=== PATIENT | female | born 1995 | race Caucasian/White ===

== ENCOUNTER 2021-06-30 11:29 | Outpatient (CLI) | payer BC, SELFPAY ==
[2021-06-30 11:51] LABS: Absolute Lymphocyte Count 1.37 X10^3/uL (0.83-4.51); Absolute Neutrophil Count 5.9 X10^3/uL (2.0-7.7); Basophil# 0.03 X10^3/uL; Basophil% 0.4 % (0-1); Eosinophil# 0.04 X10^3/uL; Eosinophils% 0.5 % (0-5); Hemoglobin 12.8 g/dL (12.0-15.0); Lymphocyte # 1.37 X10^3/ul (0.83-4.51); Lymphocyte % 17.2 % (19-41); Mean Corp Hgb Conc 33.7 g/dL (32-36); Mean Corpuscular Hgb 30.1 pg (27.0-32.0); Mean Corpuscular Volume 89.4 fL (81-99); Mean Platelet Vol. 9.8 fl (6.2-12.0); Monocyte# 0.57 X10^3/uL; Monocyte% 7.2 % (0-10); NRBC Flagged by Analyzer 0 % (0-5); Neutrophil # 5.91 X10^3/uL (2.7-7.7); Neutrophil % 74.2 % (47-70); Platelet Count 194 K/mm3 (150-450); RBC Distribution Width CV 12.8 % (11.6-14.6); RBC Distribution Width SD 42.3 fl (35.1-43.9); Red Blood Count 4.25 M/mm3 (4.2-5.4)
[2021-06-30 13:17] LABS: HIV - WCH Non-Reactive (Nonreactive); Hepatitis B Surface Antigen Non-Reactive (Nonreactive); Hepatitis C Antibody Non-Reactive (Nonreactive); Rubella IgG Reactive (Nonreactive); Syphilis Antibodies Non-reactive
[2021-06-30 14:31] LABS: Amphetamine Urine VISTA NEGATIVE (<1000 ng/mL); Barbiturate Urine VISTA NEGATIVE (< 200 ng/mL); Benzodiazepine Urine VISTA NEGATIVE (< 200 ng/mL); Cocaine Urine VISTA NEGATIVE (< 300 ng/mL); Ecstacy Urine VISTA NEGATIVE (< 500 ng/mL); Methadone Urine VISTA NEGATIVE (< 300 ng/mL); PCP Urine VISTA NEGATIVE (< 25 ng/mL); THC Urine VISTA NEGATIVE (< 50 ng/mL); Vista UDS pH Range 5
[2021-07-04 04:07] LABS: Chlamydia By Nucleic Acid AMP Negative (Negative)
[2021-07-04 11:24] LABS: Gonococcus By Nucleic Acid AMP Negative (Negative)
== END 2021-06-30 23:59 | disposition short-term general hospital (02) ==
PROVIDERS: PCP Nurse Practitioner; Referring Provider Obstetrics & Gynecology; Visit Provider Obstetrics & Gynecology
DX: Z34.90 Encounter for supervision of normal pregnancy, unspecified, unspecified trimester (principal)
CPT/HCPCS: 36415; 80307; 85025; 86703; 86762; 86780; 86803; 86850; 86900; 86901; 87086; 87340; 87491; 87591

== ENCOUNTER → 2021-10-26 | Outpatient (CLI) | payer BC, SELFPAY ==
[2021-10-26 08:15] LABS: Absolute Lymphocyte Count 1.42 X10^3/uL (0.83-4.51); Basophil# 0.05 X10^3/uL; Basophil% 0.7 % (0-1); Eosinophil# 0.14 X10^3/uL; Eosinophils% 1.9 % (0-5); Hemoglobin 11.4 g/dL (12.0-15.0); Lymphocyte # 1.42 X10^3/ul (0.83-4.51); Lymphocyte % 18.8 % (19-41); Mean Corp Hgb Conc 32.6 g/dL (32-36); Mean Corpuscular Hgb 30.6 pg (27.0-32.0); Mean Corpuscular Volume 93.8 fL (81-99); Mean Platelet Vol. 9.5 fl (6.2-12.0); Monocyte# 0.62 X10^3/uL; Monocyte% 8.2 % (0-10); NRBC Flagged by Analyzer 0 % (0-5); Neutrophil # 5.04 X10^3/uL (2.7-7.7); Neutrophil % 66.6 % (47-70); Platelet Count 211 K/mm3 (150-450); RBC Distribution Width CV 12.7 % (11.6-14.6); Red Blood Count 3.73 M/mm3 (4.2-5.4); White Blood Count 7.6 K/mm3 (4.4-11.0)
[2021-10-26 08:52] LABS: Glucose Challenge Gest 1H 50g 96 mg/dL (70-140)
== END | disposition home or self-care (01) ==
LOC: PAVLAB 07:53
PROVIDERS: PCP Nurse Practitioner; Referring Provider Obstetrics & Gynecology; Visit Provider Obstetrics & Gynecology
DX: Z34.90 Encounter for supervision of normal pregnancy, unspecified, unspecified trimester (principal)
CPT/HCPCS: 36415; 82950; 85025

== ENCOUNTER 2021-12-14 10:57 | Emergency (ER) | payer BC, SELFPAY ==
[2021-12-14 10:57] VITALS: BP 138/85; PULSE 111; RESP 16; TEMP 36.6; O2SAT 99; BMI 29.5
--- NOTE | 2021-12-14 11:01 | NURSING ---
NO OLD EKGS
--- NOTE | 2021-12-14 11:14 | EDS_ITS ---
HPI History of Present Illness Chief Complaint: Palpitations Narrative Narrative: Patient presents with palpitations, she tells me that her apple watch read up to 160 bpm and she was feeling lightheaded at the time. She has a history of this during her , she is in her third trimester, she had decreased all caffeine and was okay for a few weeks and then today her tachycardia returned. Other than her lightheadedness when her heart rate was really high she had no chest pain no pleuritic component she had no back pain or tearing sensation she has no lower extremity edema or calf pain. She has no history of DVT or PE. She has no shortness of breath. She has no abdominal pain. No history of thyroid issues, and otherwise she has no other symptoms. [facility] Medical History COVID-19 vaccine series completed Home Medications multivitamin no.47-iron fum 27 mg-folate no.1 1 mg-dha 300 mg capsule (PNV-DHA) cap PO 06/14/21 [History Last Taken Unknown] metoprolol tartrate 25 mg tablet 25 mg PO BID #30 tabs 12/14/21 [Rx Last Taken Unknown] Allergy/AdvReac Type Severity Reaction Status Date / Time Penicillins Allergy Intermediate Hives Verified 12/14/21 10:59 Family History Mother Hypertension Grandmother Breast cancer Grandmother Hypertension Surgical History H/O wisdom tooth extraction Social History household members: spouse housing: house 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al status: employed 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 Some lightheadedness Eyes: No visual changes ENT: No upper airway congestion, normal voice Neck: No neck pain Cardiovascular: No chest pain. Palpitations as in HPI Respiratory: No shortness of breath or cough Gastrointestinal: No abdominal pain, nausea vomiting or diarrhea. She has movement Genitourinary: No dysuria Musculoskeletal: Denies myalgias no difficulty with ambulation Skin: No rash Neurological: No memory loss, confusion or any focal weakness Psych: No recent behavioral changes Hematologic: No easy bleeding or easy bruising EXAM Physical Exam Narrative Exam Narrative: Physical exam General: Well nourished, Well developed, No Acute Distress Head: Normocephalic, Atraumatic Eyes: Conjunctiva not pale ENT: Moist mucous membranes Neck: Supple, Nontender, No lymphadenopathy Cardiovascular: Regular tachycardia. No obvious murmurs. Respiratory: No distress, CTA bilaterally Abdomen: Gravid past the umbilicus, nontender. Back: Nontender, Normal Inspection. Negative for: CVA tenderness Extremities: Nontender, No edema, no calf tenderness Skin: Normal color, No rash Neurological: Alert, Normal Strength, Normal Sensation Psychological: Normal affect Const Vital Signs: 12/14/21 10:57 12/14/21 11:16 Temperature 97.8 F Temperature Source Temporal Pulse Rate 111 H Respiratory Rate 16 Respiratory Effort Normal Non-Labored Respiratory Pattern Normal Blood Pressure 138/85 H Blood Pressure Mean 102 Pulse Ox 99 Oxygen Delivery Method Room Air MDM MDM MDM Narrative Medical decision making narrative: Patient has an unremarkable ED work-up she appears well, she was given a small amount of metoprolol orally and her heart rate now is in the ED she is asymptomatic. I talked to WARNING ANALYST, Dr. Palomo Sloan as well as Dr. Castillo. I will place the patient on a Holter monitor for home and a small amount of beta- blockade for home. If any changes she is to return. At this time she does not have any signs or symptoms of a pulmonary embolism she has no chest pain shortness of breath no leg pain calf pain or any other symptoms. I warned her if she gets any of these she is to return. 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 Lab Data Labs: Laboratory Results - last 24 hr 12/14/21 12/14/21 12/14/21 11:25 11:25 11:40 WBC 9.2 RBC 3.70 L Hgb 10.5 L Hct 32.3 L MCV 87.3 MCH 28.4 MCHC 32.5 RDW Std Deviation 41.1 RDW Coeff of Jovon 13.1 Plt Count 189 MPV 10.2 Immature Gran % (Auto) 2.100 H Neut % (Auto) 75.7 H Lymph % (Auto) 15.3 L [place] % (Auto) 6.1 Eos % (Auto) 0.5 Baso % (Auto) 0.3 Absolute Neuts (auto) 7.0 Absolute Lymphs (auto) 1.41 Nucleated RBC % 0 Sodium 138 Potassium 3.7 Chloride 108 H Carbon Dioxide 24.0 Anion Gap 6 BUN 9 Creatinine 0.63 Estim Creat Clear Calc 116.85 Est GFR (MDRD) Af Amer 146 Est GFR (MDRD) Non-Af 121 BUN/Creatinine Ratio 14.2 Glucose 81 Calcium 9.0 Total Bilirubin 0.20 AST 29 ALT 38 Alkaline Phosphatase 69 Total Protein 6.9 Albumin 2.9 L Globulin 4.0 Albumin/Globulin Ratio 0.7 L TSH 2.74 Urine Color Yellow Urine Clarity Clear Urine pH 6.5 Ur Specific [place] 1.010 Urine Protein Negative Urine Glucose (UA) Normal Urine Ketones 50 H Urine Occult Blood Negative Urine Nitrite Negative Urine Bilirubin Negative Urine Urobilinogen Normal Ur Leukocyte Esterase Negative Urine RBC 0 SEEN Urine WBC 0 SEEN Ur Squamous Epith Cells 0 SEEN Urine Bacteria 0 SEEN Urine Mucus 0 SEEN Discharge Plan Triage Chief Complaint: Palpitations ED Provider: Kristopher Lopez Dx/Rx/DC Orders Clinical Impression: , Tachycardia Instructions: Understanding Tachycardia Prescriptions: New metoprolol tartrate 25 mg tablet 25 mg PO BID Qty: 30 0RF No Action PNV-DHA 27 mg iron-1 mg -300 mg capsule PO Primary Care Provider: Sowmya Baldwin NP Referrals: Kristopher Castillo MD [STAFF PHYSICIAN] - 3-5 Days Dorothy Lee MD [STAFF PHYSICIAN] - 3-5 Days Sowmya Baldwin NP, SPOTTER-C [Primary Care Provider] - Disposition Disposition: Home, Self Care
[2021-12-14 11:37] LABS: Absolute Lymphocyte Count 1.41 X10^3/uL (0.83-4.51); Basophil# 0.03 X10^3/uL; Basophil% 0.3 % (0-1); Eosinophil# 0.05 X10^3/uL; Eosinophils% 0.5 % (0-5); Hematocrit 32.3 % (37-47); Hemoglobin 10.5 g/dL (12.0-15.0); Lymphocyte # 1.41 X10^3/ul (0.83-4.51); Lymphocyte % 15.3 % (19-41); Mean Corp Hgb Conc 32.5 g/dL (32-36); Mean Corpuscular Hgb 28.4 pg (27.0-32.0); Mean Corpuscular Volume 87.3 fL (81-99); Mean Platelet Vol. 10.2 fl (6.2-12.0); Monocyte# 0.56 X10^3/uL; Monocyte% 6.1 % (0-10); NRBC Flagged by Analyzer 0 % (0-5); Neutrophil # 6.99 X10^3/uL (2.7-7.7); Neutrophil % 75.7 % (47-70); Platelet Count 189 K/mm3 (150-450); RBC Distribution Width CV 13.1 % (11.6-14.6); RBC Distribution Width SD 41.1 fl (35.1-43.9); White Blood Count 9.2 K/mm3 (4.4-11.0)
[2021-12-14] MEDS: Metoprolol Tartrate 25 MG Tablet PO (11:51)
[2021-12-14 12:03] LABS: Bacteria 0 SEEN /hpf (None Seen); Color, Urine Yellow (Yellow); Glucose, Dipstick Normal (Normal); Ketone-Dipstick 50 mg/dl (Negative); Leukocyte Esterase-Dipstick Negative /ul (Negative); Mucous, Urine 0 SEEN /hpf (<or=2+); Nitrite-Dipstick Negative (Negative); Occult Blood-Urine Negative /ul (Negative); Protein-Dipstick Negative (Negative); Red Blood Cells-Urine 0 SEEN /hpf (0-5); Squamous Epithelial Cells - UA 0 SEEN /hpf (5-10); Urine Bilirubin Dipstick Negative (Negative); Urine Clarity Clear (Clear); Urine Urobilinogen Normal (Normal); Urine pH 6.5 (5.0 - 8.0); White Blood Cells 0 SEEN /hpf (0-5)
[2021-12-14 12:06] LABS: ALB/GLOB Ratio 0.7 RATIO (0.9-2.4); AST(SGOT) 29 U/L (15-37); Alanine Aminotransfer ALT/SGPT 38 U/L (13-56); Albumin, Serum 2.9 g/dL (3.2-5.0); Alkaline Phosphatase 69 U/L (45-117); Anion Gap 6 (5-15); BUN 9 mg/dL (7-18); BUN/Creat Ratio 14.2 RATIO (10-20); Chloride 108 mmol/L (98-107); Creatinine, Serum 0.63 mg/dL (0.55-1.02); EST Glomerular Filtration Rate 121 mL/min (>60); Est Glom Filt Rate - Afr Amer 146 mL/min (>60); Estimated Creatinine Clearance 116.85 ml/min; Glucose 81 mg/dL (74-106); Potassium 3.7 mmol/L (3.5-5.1); Protein, Total 6.9 g/dL (6.4-8.2); Sodium Level 138 mmol/L (136-145); Thyroid Stim Hormone (TSH) 2.74 uIU/mL (0.358-3.74)
--- NOTE | 2021-12-14 12:12 | EKG12_ITS ---
Test Reason : palpitations Blood Pressure : / mmHG Vent. Rate : 137 BPM Atrial Rate : 137 BPM P-R Int : 122 ms QRS Dur : 078 ms QT Int : 296 ms P-R-T Axes : 057 089 021 degrees QTc Int : 446 ms Sinus tachycardia Otherwise normal ECG Confirmed by FIOR URBINA, DIDIER ([id number]), associate editor ANGELA HSU ([id number]) on 12/17/2021 9:42:28 AM Referred By: John Confirmed By:DIDIER CHILDRESS MD
[2021-12-14 13:28] VITALS: BP 115/70; PULSE 105; RESP 16; O2SAT 98
== END 2021-12-14 13:29 | disposition home or self-care (01) ==
PROVIDERS: Emergency Provider Emergency Medicine; PCP Nurse Practitioner; Visit Provider Emergency Medicine
DX: O99.891 Other specified diseases and conditions complicating pregnancy (principal); R00.0 Tachycardia, unspecified; Z3A.00 Weeks of gestation of pregnancy not specified
CPT/HCPCS: 80053; 81001; 84443; 85025; 93005; 96360; 99284; J7030; A4216

== ENCOUNTER → 2021-12-14 | Outpatient (CLI) | payer BC, SELFPAY | END | disposition home or self-care (01) | LOC: CVS 13:26 | PROVIDERS: PCP Nurse Practitioner; Visit Provider Emergency Medicine | DX: R00.2 Palpitations (principal) | CPT/HCPCS: 93225; 93226 ==

== ENCOUNTER → 2022-01-03 | Outpatient (CLI) | payer BC, SELFPAY | END | disposition home or self-care (01) | LOC: LABSPEC 09:22 | PROVIDERS: PCP Nurse Practitioner Family; Visit Provider Obstetrics & Gynecology | DX: Z34.93 Encounter for supervision of normal pregnancy, unspecified, third trimester (principal); Z3A.36 36 weeks gestation of pregnancy | CPT/HCPCS: 87081 ==

== ENCOUNTER 2022-01-04 10:53 | Outpatient (CLI) | payer BC, SELFPAY ==
--- NOTE | 2022-01-04 10:56 | ECHOD_ITS ---
Reason For Study: Arrhythmia Procedure This was a 2D Doppler, Color Flow transthoracic echocardiogram. Exam performed in department. Left Ventricle Normal LV size. Left ventricular systolic function is normal. The estimated ejection fraction is 55 %. Normal diastology for age. No regional wall motion abnormalities noted. Right Ventricle Normal RV size. Normal systolic function. Atria Normal left atrium. Normal right atrium. Mitral Valve Normal mitral valve. Tricuspid Valve Normal tricuspid valve. Mild tricuspid valve insufficiency. Aortic Valve Normal aortic valve. Trisinus/trileaflet aortic valve. Pulmonic Valve Normal pulmonic valve. Great Vessels Normal aortic root. The pulmonary artery is normal size. Normal inferior vena cava. Pericardium/Pleural No pericardial effusion. MMode/2D Measurements & Calculations LVIDd: 4.8 cm IVSd: 1.0 cm Ao root diam: 2.2 cm LVIDs: 3.1 cm LVPWd: 0.93 cm RVDd: 3.6 cm FS: 35.4 % LAV(MOD-bp): 25.0 ml LVAd ap4: 29.7 cm2 SV(MOD-sp4): 53.6 ml LAV(MOD-bp) Indexed: 13.4 ml/m2 LVLd ap4: 7.7 cm LAV(MOD-sp2): 25.8 ml EDV(MOD-sp4): 94.1 ml LAV(MOD-sp4): 25.5 ml EDV(sp4-el): 97.2 ml LVAs ap4: 17.6 cm2 LVLs ap4: 6.4 cm ESV(MOD-sp4): 40.5 ml ESV(sp4-el): 41.2 ml EF(MOD-sp4): 57.0 % EF(sp4-el): 57.7 % SV(sp4-el): 56.1 ml LA A4 area: 11.5 cm2 LA dimension(2D): 3.3 cm RA A4 area: 9.7 cm2 Doppler Measurements & Calculations MV E max hayes: 70.1 cm/sec Lat Peak E' Hayes: 14.0 cm/sec Med Peak E' Hayes: 7.8 cm/sec MV A max hayes: 58.9 cm/sec E/E' lat: 5.0 E/E' med: 9.0 MV E/A: 1.2 Ao V2 max: 158.0 cm/sec LV V1 max: 136.6 cm/sec PA V2 max: 140.5 cm/sec Ao max P.0 mmHg LV V1 max P.5 mmHg PA V2 mean: 104.2 cm/sec Ao V2 mean: 112.3 cm/sec Ao mean P.5 mmHg Ao V2 VTI: 28.6 cm TR max hayes: 200.7 cm/sec TR max P.1 mmHg ECHO/Echo Complete Interpretation Summary Normal LV size. Left ventricular systolic function is normal. The estimated ejection fraction is 55 %. Mild tricuspid valve insufficiency. Normal diastology for age. Ordering Physician: Kirk Lemon Referring Physician: Kiya Greer Performed By: Juana Burns, SHARMAINE, RVT
== END 2022-01-04 23:59 | disposition home or self-care (01) ==
PROVIDERS: PCP Nurse Practitioner Family; Referring Provider Internal Medicine Cardiovascular Disease; Visit Provider Internal Medicine Cardiovascular Disease
DX: R00.0 Tachycardia, unspecified (principal)
CPT/HCPCS: 93306

== ENCOUNTER → 2022-01-17 | Outpatient (CLI) | payer BC, SELFPAY ==
--- NOTE | 2022-01-17 16:12 | US_ITS ---
STUDY: SECOND AND THIRD TRIMESTER OBSTETRICAL ULTRASOUND REASON FOR EXAM: Female, 26 years old growth LMP: 04/23/2021 TECHNIQUE: Transabdominal TECHNICAL QUALITY: Adequate. PRIOR ULTRASOUND: None. FINDINGS: There is a single intrauterine fetus. The fetus is in a cephalic presentation. There is demonstrated cardiac activity with a heart rate of 144 bpm. There is a normal amniotic fluid volume. The largest amniotic fluid pocket measures 5.3 cm. The amniotic fluid index (RASHEED) is 16.0 cm. The placenta is anterior in location and is not low lying. There are Grade 2 placental changes. The cervix measures in length. The adnexal regions are not visualized. BIOMETRY: BPD: 8.8 cm: 35 weeks, 3 days HC: 32.8 cm: 37 weeks, 2 days AC: 34.5 cm: 38 weeks, 3 days FL: 7.2 cm: 37 weeks, 0 days CI: 75.62 FL/BPD: 82.31 FL/HC: 22.05 FL/AC: 20.94 HC/AC: 0.95 age by current US: 37 weeks, 0 days. ANJEL by current US: 02/07/2022. Estimated weight: 3268 grams, +/- 490 grams, 45 %. Age by LMP: 38 weeks, 3 days. ANJEL by LMP: 01/28/2022. US/OB Limited With Biometrics IMPRESSION: Living intrauterine of 37 weeks 0 days as described above. Electronically Signed: Levi Portillo MD at 17:23 EDT ,
== END | disposition home or self-care (01) ==
LOC: US 16:12
PROVIDERS: PCP Nurse Practitioner Family; Referring Provider Obstetrics & Gynecology; Visit Provider Obstetrics & Gynecology
DX: O26.849 Uterine size-date discrepancy, unspecified trimester (principal); Z3A.00 Weeks of gestation of pregnancy not specified
CPT/HCPCS: 76816

== ENCOUNTER 2022-02-04 06:52 | Inpatient (IN) | payer BC, SELFPAY ==
[2022-02-04] VITALS (34 sets, daily range): BP systolic 99–142; BP diastolic 55–90; PULSE 75–146; TEMP 36.4–37.6; O2SAT 80–100; BMI 32.8
[2022-02-04] MEDS: Lactated Ringers 1,000 ML 50 ML IV (08:00)
[2022-02-04] MEDS: 0.9% Normal Saline Single 100 ML IV.SOLN. INTRA-UTER (08:06)
[2022-02-04 08:28] LABS: Absolute Lymphocyte Count 1.29 X10^3/uL (0.83-4.51); Basophil# 0.03 X10^3/uL; Basophil% 0.4 % (0-1); Eosinophil# 0.11 X10^3/uL; Eosinophils% 1.5 % (0-5); Hematocrit 35.7 % (37-47); Hemoglobin 11.4 g/dL (12.0-15.0); Lymphocyte # 1.29 X10^3/ul (0.83-4.51); Mean Corp Hgb Conc 31.9 g/dL (32-36); Mean Corpuscular Hgb 27.9 pg (27.0-32.0); Mean Corpuscular Volume 87.3 fL (81-99); Mean Platelet Vol. 10.9 fl (6.2-12.0); Monocyte# 0.62 X10^3/uL; Monocyte% 8.7 % (0-10); NRBC Flagged by Analyzer 0 % (0-5); Neutrophil # 5.01 X10^3/uL (2.7-7.7); Neutrophil % 70.1 % (47-70); POSITIVE MORPHOLOGY YES; Platelet Count 152 K/mm3 (150-450); RBC Distribution Width CV 20.4 % (11.6-14.6); RBC Distribution Width SD 63.8 fl (35.1-43.9); Red Blood Count 4.09 M/mm3 (4.2-5.4); White Blood Count 7.2 K/mm3 (4.4-11.0)
[2022-02-04 08:33] LABS: Differential Indicated SCAN CRITERIA MET
[2022-02-04] MEDS: Oxytocin 30 units/NS 500 ml 30 UNITS/500 ML IV.SOLN IV (08:33)
[2022-02-04 09:01] LABS: Anisocytosis 1+
--- NOTE | 2022-02-04 09:19 | HP.PCM.OB_ITS ---
HPI - General General Date of Admission: 02/04/22 HPI Narrative MARTIN CASTELLANOS, is a 26 F who presents IOL postdates no vb lof good fm eloisa gular ctx Maternal Data Information ANJEL Calculator Estimated Delivery Date Method Current WG Current Estimate 01/28/22 Ultrasound #1 41w 0d Other Estimates 02/04/22 LMP (Certain) 40w 0d PFSH PFSH Medical History COVID-19 vaccine series completed Home Medications multivitamin no.47-iron fum 27 mg-folate no.1 1 mg-dha 300 mg capsule (PNV-DHA) 1 cap PO Check with primary doctor 06/14/21 [History Last Taken 02/03/22 08:00] Allergy/AdvReac Type Severity Reaction Status Date / Time Penicillins Allergy Intermediate Hives Verified 02/04/22 08:35 Family History Mother Hypertension Grandmother Breast cancer Grandmother Hypertension Surgical History H/O wisdom tooth extraction Social History household members: spouse housing: house 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al status: employed 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 cut cord/dad catch: dad wants to catch and cut : yes PP control planned: unsure discussed possible routes of delivery and associated risks: risks and modes discussed special requests: portable monitoring. Plans Covid status: given Flu vaccine: discussed Tdap vaccine: given 10/26/21 Rhogam: na LARC form signed: declined movement and labor precautions reviewed. Problem list reviewed and updated with the most current plan of care details and appropriate orders placed. Relevant counseling for the gestational age provided. Continue routine care and follow up unless otherwise noted in visit notes/problem list details OB Flowsheet Initial Weight: Not Recorded Date -?-?-?-?-?-?-?-?-?-?-?-?- EGA Weight BP Urine Prot -?-?-?-?-?-?-?-?-?-?-?-?- Glucose FHR FuHt Pres Dilation -?-?-?-?-?-?-?-?-?-?-?-?- Effaced St Visit Note 06/30/21 -?-?-?-?-?-?-?-?-?-?-?-?- 9w 5d 146 lb 2 oz 140/90 -?-?-?-?-?-?-?-?-?-?-?-?- -?-?-?-?-?-?-?-?-?-?-?-?- JV- CRL not cons istent with LMP. ANJEL 01/28/22 07/26/21 -?-?-?-?-?-?-?--?-?-?-?-?- 13w 3d 146 lb 2 oz 124/80 Nega tive -?-?-?-?-?-?-?-?-?-?-?-?- Negative 157 -?-?-?-?-?-?-?-?-?-?-?-?- JV- no lof, vagi nal bleeding, or cramping. still has some nausea and can not tolerate chicken. declines gender/ genetic testing, 08/23/21 -?-?-?-?-?-?-?-?-?-?-?-?- 17w 3d 149 lb 6 oz 110/80 Nega tive -?-?-?-?-?-?-?-?-?-?-?-?- Negative 154 -?-?-?-?-?-?-?-?-?-?-?-?- JV- no lof, vagi nal bleeding, or cramping. not feeling movement yet. pt has her anatomy scan next week and is nervous about it due to a fhx of heart defect 09/23/21 -?-?-?-?-?-?-?-?-?-?-?-?- 21w 6d 155 lb 2 oz 130/70 Nega tive -?-?-?-?-?-?-?-?-?-?-?-?- Negative 150 22 -?-?-?-?-?-?-?-?-?-?-?-?- Sm- no vb lof go od fm nor eular ctx 10/26/21 -?-?-?-?-?-?-?-?-?-?-?-?- 26w 4d 164 lb 6 oz 110/70 Nega tive -?-?-?-?-?-?-?-?-?-?-?-?- Negative 135 26 -?-?-?-?-?-?-?-?-?-?-?-?- JV- Glucola pend ing. no complaints today. 11/08/21 -?-?-?-?-?-?-?-?-?-?-?-?- 28w 3d 166 lb 4 oz 100/60 Nega tive -?-?-?-?-?-?-?-?-?-?-?-?- Negative 151 28 -?-?-?-?-?-?-?-?-?-?-?-?- JV- normal 28 we ek labs, no complaints today. tdap was given last visit. 11/25/21 -?-?-?-?-?-?-?-?-?-?-?-?- 30w 6d 169 lb 2 oz 120/70 Nega tive -?-?-?-?-?-?-?-?-?-?-?-?- Negative 145 31 -?-?-?-?-?-?-?-?-?-?-?-?- SM- no vb lof go od fm nor egular ctx larc signed. 12/08/21 -?-?-?-?-?-?-?-?-?-?-?-?- 32w 5d 172 lb 124/56 Negative -?-?-?-?-?-?-?-?-?-?-?-?- Negative 140 32 -?-?-?-?-?-?-?-?-?-?-?-?- SM- no vb lof go od fm no regular ctx SM- no vb lof good fm no reg ular ctx discussed palpitations and dizziness, change in vision with them at times. discussed supportive care and eliminating caffeine if no improvement consider cardio consult 12/20/21 -?-?-?-?-?-?-?-?-?-?-?-?- 34w 3d 176 lb 2 oz 132/64 Nega tive -?-?-?-?-?-?-?-?-?-?-?-?- Negative 188 34 -?-?-?-?-?-?-?-?-?-?-?-?- MH-No VB, LOF. P atient now on metatoprol for tachycardia. NST today for tachycardia. MH-No VB, LOF. Patient now o n metatoprol for tachycardia. NST today for tachycardia/reactive 01/02/22 -?-?-?-?-?-?-?-?-?-?-?-?- 36w 2d 180 lb 112/74 -?-?-?-?-?-?-?-?-?-?-?-?- 130 36 Cephalic 0 -?-?-?-?-?-?-?-?-?-?-?-?- SM- no vb lof go od fm no regular ctx gbs done 01/11/22 -?-?-?-?-?-?-?-?-?-?-?-?- 37w 4d 183 lb 122/82 Negative -?-?-?-?-?-?-?-?-?-?-?-?- Negative 142 37 Cephalic 0 -?-?-?-?-?-?-?-?-?-?-?-?- JV- gbs neg, no lof, vaginal bleeding, or dec fm. 01/17/22 -?-?-?-?-?-?-?-?-?-?-?-?- 38w 3d 185 lb 98/70 Negative -?-?-?-?-?-?-?-?-?-?-?-?- Negative 140 36 Cephalic 1 .5 -?-?-?-?-?-?-?-?-?-?-?-?- 50 -2 SM- no vb lof good fm n oregular ctx growth us ordered for drop in fundal height 01/27/22 -?-?-?-?-?-?-?-?-?-?-?-?- 39w 6d 186 lb 8 oz 128/76 Nega tive -?-?-?-?-?-?-?-?-?-?-?-?- Negative 145 40 Cephalic 1 .5 -?-?-?-?-?-?-?-?-?-?-?-?- 80 -3 JV- 41 wee k IOL set up. pt prefers PM induction after full discussion. consent signed. 02/03/22 -?-?-?-?-?-?-?-?-?-?-?-?- 40w 6d 189 lb 124/60 -?-?-?-?-?-?-?-?-?-?-?-?- 144 Cephalic 1.5 -?-?-?-?-?-?-?-?-?-?-?-?- 80 -3 JV- no lof , vaginal bleeding, or dec fm. elliott 10. 02/04/22 -?-?-?-?-?-?-?-?-?-?-?-?- 41w 0d 191 lb 2.252 oz 137/86 -?-?-?-?-?-?-?-?-?-?-?-?- -?-?-?-?-?-?-?-?-?-?-?-?- NST FHR Rate Baby A Baseline: 130 Variability:: Moderate Accelerations:: 15 x 15 Decelerations:: None NST Reactive:: Yes FHR Category:: Category I Uterine Activity:: irregular ROS Constitutional Constitutional: Reports systems reviewed and no addt'l complaints, except as documented Eyes Eyes: Denies change in vision ENT HEENT: Reports systems reviewed and no addt'l complaints, except as documented; Denies headache(s) Cardiovascular Cardiovascular: Reports systems reviewed and no addt'l complaints, except as documented; Denies chest pain or dyspnea Respiratory/Chest Respiratory/Chest: Reports systems reviewed and no addt'l complaints, except as documented Gastrointestinal Gastrointestinal: Reports systems reviewed and no addt'l complaints, except as documented; Denies abdominal pain Genitourinary Genitourinary: Reports systems reviewed and no addt'l complaints, except as documented, contractions Details: present (irregular) and movement Details: present; Denies dysuria or genital lesions Musculoskeletal Musculoskeletal: Reports systems reviewed and no addt'l complaints, except as documented Neurologic Neurologic: Reports systems reviewed and no addt'l complaints, except as documented Endocrine Endocrinology: Reports systems reviewed and no addt'l complaints, except as documented Vital Signs Vital Signs Vital Signs: 02/04/22 07:40 02/04/22 07:40 02/04/22 07:40 Temperature Temperature Source Temporal Pulse Rate 93 Blood Pressure 137/86 H BP Systolic 137 BP Diastolic 86 Pulse Ox 02/04/22 07:40 02/04/22 07:40 Temperature 98.5 F Temperature Source Pulse Rate Blood Pressure BP Systolic BP Diastolic Pulse Ox 98 Weight Weight: 191 lb 2.252 oz Body Mass Index (BMI) 32.8 Physical Exam Const alert, oriented x3, no apparent distress and healthy appearing HEENT normocephalic and moist oral mucous membranes Head and Scalp: atraumatic Neck full ROM, no lymphadenopathy, supple and thyroid normal General: trachea midline Lymph Lymphatic: no lymphadenopathy noted Chest inspection of chest normal Resp normal respiratory effort Cardio regular rate GI normal to inspection, nondistended, normoactive bowel sounds, soft to palpation and non-tender Inspection: gravid external exam normal Manual OB Exam: estimated gestational size appropriate, presentation cephalic, dilated, effaced and station Extremity normal to inspection General Extremity: Negative for edema Skin no rashes or lesions noted Neuro no focal motor deficits and deep tendon reflexes 2+ bilaterally Motor Exam: strength 5/5 throughout and clonus absent Psych mental status grossly normal Labs Labs Labs: Blood Type A POSITIVE Antibody Screen NEGATIVE Hct 35.7 % (37-47) L Hgb 11.4 g/dL (12.0-15.0) L Pap Smear Negative Obstetrics US Syphilis Total Ab Non-reactive Rubella IgG Antibody Reactive (Nonreactive) Hep Bs Antigen Non-Reactive (Nonreactive) Chlamydia DNA (ZULEMA) Negative (Negative) Neisseria gonorrhoeae DNA (ZULEMA) Negative (Negative) HIV 1&2 Antibody Non-Reactive (Nonreactive) Glucose 1 Hr 50 gm 96 mg/dL (70-140) Assessment & Plan (1) Seasonal allergies: COMMENT: takes PRN OTC allergy medication (2) Asthma: COMMENT: as a child, resolved. (3) : QUALIFIERS: Weeks of gestation: 39 weeks Qualified Code(s): Z3A.39 - 39 weeks gestation of COMMENT: GBS Negative, declined ntd genetics and carrier, NL anatomy scan, NL growth US (4) Supervision of normal : COMMENT: PRR ANJEL: 02/04/22 surprise Spouse: Itz (5) Family history of congenital anomaly of cardiovascular system: COMMENT: patient's niece had TGA w/ VSD repair surgically (6) Encounter for induction of labor: COMMENT: pit fb PLAN: Plan Pit IOL fb epi PRN
[2022-02-04] MEDS: fentaNYL-bupivacaine (epidural) 100 ML BAG EPIDURAL ×3 (13:50→22:31)
[2022-02-04] MEDS: Lactated Ringers 1,000 ML 200 ML IV ×2 (17:58→22:06)
[2022-02-04] MEDS: Ondansetron 4 MG/2 ML Vial IV (19:25)
[2022-02-04] MEDS: 0.9% Saline Lock 10 ML Syringe IV (19:25)
[2022-02-05] VITALS (31 sets, daily range): BP systolic 116–149; BP diastolic 56–82; PULSE 89–147; RESP 15–18; TEMP 36.8–37.4; O2SAT 95–100
[2022-02-05] MEDS: Ondansetron 4 MG/2 ML Vial IV ×2 (00:02→05:38)
[2022-02-05] MEDS: 0.9% Saline Lock 10 ML Syringe IV ×2 (00:02→03:42)
--- NOTE | 2022-02-05 03:43 | DCINST_ITS ---
Discharge Instructions Diet Discharge Diet: No restrictions Activity Discharge Activity: Return to Normal Activity, May Drive, May Shower and May Take a Tub Bath (in 4 weeks) May resume sexual activity in: 6-8 weeks (after seen by OB provider) Weight Bearing Status: Full weight bearing Lifting Restrictions: none Dressing / Incision Call your doctor if you observe: Fever of 101 or Higher, Inability to urinate, Using more than 1 pad per hour (for more than 2 hours in a row or more), Shortness of breath, Dizziness, Chest pain and - (headache not controlled with tylenol, change in vision) Follow Up Care When: in 6 weeks for visit, call the office to make the appointment. If you had elevated blood pressures call the office to be seen within 1 week. Test Results: Test results from this visit will be discussed in further detail at your follow- up appointment, if applicable. Discharge Plan Admission Admit Date/Time: 02/04/22 06:52 Attending Provider: Dorothy Lee Primary Care Provider: Kiya Greer Discharge Orders/Prescriptions Prescriptions: No Action PNV-DHA 27 mg iron-1 mg -300 mg capsule 1 cap PO Referrals / Follow Up: Kiya Greer, HOME BASED ASSISTANT-C [Primary Care Provider] - Disposition Disposition (needs filled in before D/C Order can be placed): Home, Self Care
--- NOTE | 2022-02-05 03:43 | EX.PCM.OBRPT ---
Assessment & Plan (1) Encounter for induction of labor: COMMENT: gale milton (2) Family history of congenital anomaly of cardiovascular system: COMMENT: patient's niece had TGA w/ VSD repair surgically (3) Supervision of normal : COMMENT: PRR ANJEL: 02/04/22 surprise Spouse: Itz (4) : QUALIFIERS: Weeks of gestation: 39 weeks Qualified Code(s): Z3A.39 - 39 weeks gestation of COMMENT: GBS Negative, declined ntd genetics and carrier, NL anatomy scan, NL growth US (5) Asthma: COMMENT: as a child, resolved. (6) Seasonal allergies: COMMENT: takes PRN OTC allergy medication (7) Vaginal delivery: COMMENT: SM IOL postdates 41 girl Mey atony (8) 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: COMMENT: methergine cytotec pitocin massage ebl 600 Maternal Data Information ANJEL Calculator Estimated Delivery Date Method Current WG Current Estimate 01/28/22 Ultrasound #1 41w 1d Other Estimates 02/04/22 LMP (Certain) 40w 1d Vaginal Delivery Operative Information Date of Procedure: 02/05/22 Pre-Operative Diagnosis: IOL postdates Post-Operative Diagnosis: same Surgery / Procedure Performed: Spontaneous Vaginal Delivery Type of Anesthesia: Epidural Special Medications: none Estimated Blood Loss: 600 Fluids Replaced: crystalloid Findings Description of Procedure: Patient began pushing and delivered the head in the MORGAN presentation. The head was delivered atraumatically . The anterior and posterior shoulders delivered without complication followed by the rest of the infant and the infant was placed on the maternal abdomen. Delayed cord clamping was employed for approximately 60 seconds. Cord was clamped and cut and gentle traction was applied to the cord and the placenta delivered spontaneously immediately following it was noted to be intact with three-vessel cord. The perineum and vagina were inspected and noted to have no laceration. EBL was 600cc she had some uterine atony that was treated with bimanual massage Pitocin Methergine and Cytotec.. Patient and infant tolerated delivery well. Presentation: MORGAN Amniotic Membrane Rupture Type: Artificial Amniotic Fluid Description: Clear Placental Delivery Description: Spontaneous Placenta Disposition: [facility] Cord Vessel Description: 3 Vessels Cord Entanglement: None Delayed Cord Clamping: Yes Post Vaginal Delivery Medications Given After Delivery: IV Pitocin Episiotomy Description: None Laceration: None Complication Complications: None Procedures Urinary/Genital [id number]: [id number] Vaginal Delivery [facility]
[2022-02-05] MEDS: Lactated Ringers 1,000 ML 200 ML IV (03:57)
[2022-02-05] MEDS: fentaNYL-bupivacaine (epidural) 100 ML BAG EPIDURAL (03:57)
[2022-02-05] MEDS: Oxytocin 30 units/NS 500 ml 30 UNITS/500 ML IV.SOLN 334 UNITS IV (04:55)
[2022-02-05] MEDS: Methylergonovine 0.2 MG/ML Ampul IM (04:58)
[2022-02-05] MEDS: miSOPROStol 200 MCG Tablet 1000 MCG RC (05:00)
[2022-02-05] MEDS: Acetaminophen 500 MG Tablet 1000 MG PO ×2 (05:38→12:44)
[2022-02-05] MEDS: Senna/Docusate Sodium 1 Tablet PO (12:44)
[2022-02-05] MEDS: Naproxen 500 MG Tablet PO (20:09)
[2022-02-06 04:27] VITALS: BP 111/70; PULSE 77; RESP 14; TEMP 36.2; O2SAT 97
[2022-02-06 08:32] VITALS: BP 128/86; PULSE 76; RESP 16; TEMP 36.5; O2SAT 96
--- NOTE | 2022-02-06 09:37 | PCM.PN.OB ---
Subjective Subjective Patient doing well without complaints. Tolerating PO. Ambulating and voiding without difficulty. feeding well. Denies chest pain, shortness of breath, calf pain/swelling, fevers, chills, lightheadedness. Objective Data Objective Data Vital Signs: Vital Signs Temp Pulse Resp BP Pulse Ox O2 Del Method 97.7 F L 76 16 128/86 H 96 Room Air 02/06/22 08:32 02/06/22 08:32 02/06/22 08:32 02/06/22 08:32 02/06/22 08:32 02/06/22 08:32 Oxygen Delivery Method Room Air Weight: 191 lb 2.252 oz Body Mass Index (BMI) 32.8 Intake & Output: Intake and Output for Last 24 Hours 02/04/22 02/05/22 02/06/22 23:59 23:59 23:59 Intake Total 1949.83 / 1949.83 1734.03 / 1734.03 Output Total 7200 / 7200 1200 / 1200 Balance -5250.17 / -5250.17 534.03 / 534.03 Lab / Micro Data Result Diagrams: 02/04/22 08:00 Micro: Microbiology 02/04/22 08:00 Nasal Secretion SARS-CoV-2 Antigen (Rapid) - Final ROS Constitutional Constitutional: Reports systems reviewed and no addt'l complaints, except as documented Cardiovascular Cardiovascular: Reports systems reviewed and no addt'l complaints, except as documented Respiratory/Chest Respiratory/Chest: Reports systems reviewed and no addt'l complaints, except as documented Gastrointestinal Gastrointestinal: Reports systems reviewed and no addt'l complaints, except as documented Physical Exam Const alert, oriented x3 and no apparent distress HEENT Head and Scalp: atraumatic Resp normal respiratory effort GI soft to palpation and non-tender Bimanual Exam - Vag & Uterus: uterus non-tender Uterus Palpation: uterus fundus firm (below Umbilicus) Assessment & Plan (1) 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: COMMENT: methergine cytotec pitocin massage ebl 600 (2) Vaginal delivery: COMMENT: SM IOL postdates 41 girl Mey atony PLAN: Plan s/p PPD # 1 1. routine post delivery care 2. breast feeding- support given 3. rh positive 4. rubella immune
== END 2022-02-06 12:05 | disposition home or self-care (01) | DRG 807 ==
PROVIDERS: Admitting Provider Obstetrics & Gynecology; PCP Nurse Practitioner Family; Visit Provider Obstetrics & Gynecology
DX: O48.0 Post-term pregnancy (principal); Z37.0 Single live birth; J45.909 Unspecified asthma, uncomplicated; Z3A.41 41 weeks gestation of pregnancy; O99.52 Diseases of the respiratory system complicating childbirth; Z82.79 Family history of other congenital malformations, deformations and chromosomal abnormalities; O62.2 Other uterine inertia
CPT/HCPCS: 59025; 59050; 85025; 86850; 86900; 86901; 87426; 99218; J7120; A4216; G0378; J2405

== ENCOUNTER → 2024-04-28 | Outpatient (CLI) | payer OTHER, SELFPAY ==
[2024-05-05 10:35] LABS: HPV Reflexed? NOT INDICATED
== END | disposition home or self-care (01) ==
LOC: BWCLAB 12:16
PROVIDERS: PCP Nurse Practitioner Family; Referring Provider Nurse Practitioner Women's Health; Visit Provider Nurse Practitioner Women's Health
DX: Z12.4 Encounter for screening for malignant neoplasm of cervix (principal)
CPT/HCPCS: 88175; G0145

== ENCOUNTER → 2024-09-29 | Outpatient (CLI) | payer OTHER, SELFPAY ==
[2024-10-01 06:07] LABS: Chlamydia By Nucleic Acid AMP Negative (Negative); Gonococcus By Nucleic Acid AMP Negative (Negative)
== END | disposition home or self-care (01) ==
LOC: LABSPEC 11:55
PROVIDERS: PCP Nurse Practitioner Family; Referring Provider Obstetrics & Gynecology; Visit Provider Obstetrics & Gynecology
DX: Z34.90 Encounter for supervision of normal pregnancy, unspecified, unspecified trimester (principal)
CPT/HCPCS: 87086; 87088; 87491; 87591

== ENCOUNTER → 2024-11-05 | Outpatient (CLI) | payer OTHER, SELFPAY ==
[2024-11-05 12:09] LABS: Absolute Lymphocyte Count 1.48 X10^3/uL (0.83-4.51); Absolute Neutrophil Count 5.7 X10^3/uL (2.0-7.7); Basophil# 0.02 X10^3/uL; Basophil% 0.3 % (0-1); Eosinophil# 0.22 X10^3/uL; Eosinophils% 2.8 % (0-5); Hematocrit 38.3 % (37-47); Hemoglobin 12.8 g/dL (12.0-15.0); Lymphocyte # 1.48 X10^3/ul (0.83-4.51); Lymphocyte % 18.6 % (19-41); Mean Corp Hgb Conc 33.4 g/dL (32-36); Mean Corpuscular Hgb 30.3 pg (27.0-32.0); Mean Corpuscular Volume 90.8 fL (81-99); Mean Platelet Vol. 10.1 fl (6.2-12.0); Monocyte# 0.46 X10^3/uL; Monocyte% 5.8 % (0-10); NRBC Flagged by Analyzer 0 % (0-5); Neutrophil % 71.4 % (47-70); Platelet Count 206 K/mm3 (150-450); RBC Distribution Width CV 14.2 % (11.6-14.6); RBC Distribution Width SD 47.1 fl (35.1-43.9); Red Blood Count 4.22 M/mm3 (4.2-5.4)
[2024-11-05 13:23] LABS: HIV Nonreactive (Nonreactive); Hepatitis B Surface Antigen Nonreactive (Nonreactive); Hepatitis C Antibody Nonreactive (Nonreactive); Rubella IgG REAC (Nonreactive); Syphilis Antibodies Nonreactive (Nonreactive)
== END | disposition home or self-care (01) ==
LOC: BWCLAB 09:08
PROVIDERS: Obstetrics & Gynecology; PCP Nurse Practitioner Family; Referring Provider Obstetrics & Gynecology; Visit Provider Obstetrics & Gynecology
DX: Z34.90 Encounter for supervision of normal pregnancy, unspecified, unspecified trimester (principal)
CPT/HCPCS: 36415; 85025; 86703; 86762; 86780; 86803; 86850; 86900; 86901; 87340

== ENCOUNTER → 2025-01-26 | Outpatient (CLI) | payer OTHER, SELFPAY ==
[2025-01-26 12:59] LABS: Hematocrit 35.4 % (37-47); Hemoglobin 11.8 g/dL (12.0-15.0); Immature Granulocytes Count 0.320 X10^3/uL (0.0-0.0); Mean Corp Hgb Conc 33.3 g/dL (32-36); Mean Corpuscular Volume 93.9 fL (81-99); Mean Platelet Vol. 10.5 fl (6.2-12.0); NRBC Flagged by Analyzer 0 % (0-5); Platelet Count 182 K/mm3 (150-450); RBC Distribution Width CV 15.3 % (11.6-14.6); RBC Distribution Width SD 53.1 fl (35.1-43.9); Red Blood Count 3.77 M/mm3 (4.2-5.4); White Blood Count 7.0 K/mm3 (4.4-11.0)
[2025-01-26 13:40] LABS: Glucose Challenge Gest 1H 50g 112 mg/dL (70-140); HIV Nonreactive (Nonreactive); Syphilis Antibodies Nonreactive (Nonreactive)
== END | disposition home or self-care (01) ==
PROVIDERS: Obstetrics & Gynecology; PCP Nurse Practitioner Family; Referring Provider Advanced Practice Midwife; Visit Provider Advanced Practice Midwife
DX: Z34.90 Encounter for supervision of normal pregnancy, unspecified, unspecified trimester (principal); Z13.1 Encounter for screening for diabetes mellitus
CPT/HCPCS: 36415; 82950; 85025; 86703; 86780

== ENCOUNTER → 2025-04-06 | Outpatient (CLI) | payer OTHER, SELFPAY | END | disposition home or self-care (01) | PROVIDERS: PCP Nurse Practitioner Family; Visit Provider Obstetrics & Gynecology | DX: Z34.83 Encounter for supervision of other normal pregnancy, third trimester (principal) | CPT/HCPCS: 87081 ==

== ENCOUNTER 2025-04-20 11:16 | Outpatient (CLI) | payer OTHER, SELFPAY ==
[2025-04-20] VITALS (12 sets, daily range): BP systolic 119–137; BP diastolic 75–84; PULSE 87–107; RESP 12; TEMP 37.1; O2SAT 97–99; BMI 35.9
[2025-04-20 12:03] LABS: Hematocrit 35.0 % (37-47); Hemoglobin 11.8 g/dL (12.0-15.0); Mean Corp Hgb Conc 33.7 g/dL (32-36); Mean Corpuscular Volume 89.7 fL (81-99); Mean Platelet Vol. 10.9 fl (6.2-12.0); Platelet Count 158 K/mm3 (150-450); RBC Distribution Width CV 14.7 % (11.6-14.6); RBC Distribution Width SD 46.9 fl (35.1-43.9); Red Blood Count 3.90 M/mm3 (4.2-5.4); White Blood Count 8.1 K/mm3 (4.4-11.0)
[2025-04-20 12:31] LABS: Creatinine, Urine (random) 47.90 mg/dL (28.00-217.00); Protein, Urine (Random) 9.3 mg/dL (0.0-12.0); Protein:Creat Ratio 195 mg/g CRE (0-200)
[2025-04-20 13:03] LABS: AST(SGOT) 20 U/L (<=31); Alanine Aminotransfer ALT/SGPT 16 U/L (<=34); Estimated Creatinine Clearance 147.14 ml/min (50-250); Uric Acid 4.8 mg/dL (2.6-6.0)
--- NOTE | 2025-04-20 13:34 | OB.TRI.PN ---
Progress Notes Date of Service: 04/20/25 Progress Note: Patient presents for triage evaluation secondary to elevated bps in the office FHT: 130 Moderate variability reactive no decelerations category I tracing [place]: no regular Contractions Assessment and plan: elevated bps 38 weeks reviewed preeclmapsia precauitons labs WNL all repeta bps WNL Reactive NST, reassuring maternal and status patient discharged to home to follow-up bp check at home reviewed precautions fu next week in office. See problem list details for additional plan information. Laboratory Studies: Laboratory Tests 04/20/25 Range/Units 11:45 WBC 8.1 (4.4-11.0) K/mm3 RBC 3.90 L (4.2-5.4) M/mm3 Hgb 11.8 L (12.0-15.0) g/dL Hct 35.0 L (37-47) % MCV 89.7 (81-99) fL MCH 30.3 (27.0-32.0) pg MCHC 33.7 (32-36) g/dL RDW Std Deviation 46.9 H (35.1-43.9) fl RDW Coeff of Jovon 14.7 H (11.6-14.6) % Plt Count 158 (150-450) K/mm3 MPV 10.9 (6.2-12.0) fl Creatinine 0.63 L (0.70-1.20) mg/dL Estim Creat Clear Calc 147.14 (50-250) ml/min Est GFR (MDRD) Non-Af 123 (>60) Uric Acid 4.8 (2.6-6.0) mg/dL AST 20 (<=31) U/L ALT 16 (<=34) U/L U Random Total Protein 9.3 (0.0-12.0) mg/dL Urine Creatinine 47.90 (28.00-217.00) mg/dL Protein/Creatinin Ratio 195 (0-200) mg/g CRE Charges/Coding Procedures Urinary/Genital 52xxx-59xxx: 54734-51 non-stress test Interp
== END 2025-04-20 13:45 | disposition home or self-care (01) ==
LOC: WPOUT 11:17 → WP 11:17
PROVIDERS: PCP Nurse Practitioner Family; Referring Provider Obstetrics & Gynecology; Visit Provider Obstetrics & Gynecology
DX: O99.891 Other specified diseases and conditions complicating pregnancy (principal); R03.0 Elevated blood-pressure reading, without diagnosis of hypertension; Z3A.38 38 weeks gestation of pregnancy
CPT/HCPCS: 59025; 59050; 82565; 82570; 84156; 84450; 84460; 84550; 85027; 99221; G0378

== ENCOUNTER 2025-04-23 22:32 | Observation (INO) | payer OTHER, SELFPAY ==
[2025-04-23] VITALS (15 sets, daily range): BP systolic 132–161; BP diastolic 71–86; PULSE 94–123; RESP 16; TEMP 36.8–37.1; O2SAT 94–97; BMI 36.0
--- OUTSIDE RECORDS SUMMARY | 2025-04-23 19:24 | XMS RPT_ITS | CCD ---
Author Organization [facility] ion Partnership [facility] Care Team Providers [employer] Content Marketing Name Role Phone Sowmya Baldwin E Unavailable Ele Osorio Unavailable Unavailable Unavailable Unavailable Rosalino Ramírez Unavailable Unavailable Unavailable Unavailable Denny Sowmya Unavailable Rosalino Ramírez LPN Unavailable Unavailable Ele Osorio Unavailable Unavailable Unavailable Unavailable Ciesa CLIENT SOLUTIONS SPECIALIST, CLIENT SOLUTIONS SPECIALIST-C [facility] Primary Care Provider Ciesa CLIENT SOLUTIONS SPECIALIST, CLIENT SOLUTIONS SPECIALIST-C [facility] Referring Provider [phone] Dr. Rose Mahmood Attending Provider [phone] Dr. Dorothy Lee Attending Provider [phone] Ciesa CLIENT SOLUTIONS SPECIALIST, CLIENT SOLUTIONS SPECIALIST-C [facility] Primary Care Provider Ciesa CLIENT SOLUTIONS SPECIALIST, CLIENT SOLUTIONS SPECIALIST-C [facility] Referring Provider [phone] Dr. Rose Mahmood Attending Provider [phone] Cidavida Sowmya Unavailable Percy WHEELER, Kiya Unavailable [phone] Percy WHEELER, Kiya Unavailable [phone] Cidavida Sowmya Unavailable Ciesa CLIENT SOLUTIONS SPECIALIST, CLIENT SOLUTIONS SPECIALIST-C [facility] Primary Care Provider Ciesa CLIENT SOLUTIONS SPECIALIST, CLIENT SOLUTIONS SPECIALIST-C [facility] Referring Provider [phone] Dr. Rose Mahmood Attending Provider [phone] Marie CLIENT SOLUTIONS SPECIALIST, CLIENT SOLUTIONS SPECIALIST-C Suzanne Attending Provider [phone] Odalys Farfan Attending Provider Unavailable Dr. Kirk Lmeon Attending Provider Percy, CLIENT SOLUTIONS SPECIALIST-C Kiya Primary Care Provider [phone] Ciesa CLIENT SOLUTIONS SPECIALIST, CLIENT SOLUTIONS SPECIALIST-C [facility] Primary Care Provider Ciesa CLIENT SOLUTIONS SPECIALIST, CLIENT SOLUTIONS SPECIALIST-C Sowmya Referring Provider [phone] Dr. Dorothy Lee Attending Provider [phone] Percy, CLIENT SOLUTIONS SPECIALIST-C Kiya Referring Provider [phone] Dr. Dorothy Lee Admit Provider [phone] Dr. Dorothy Lee Other Provider Percy MICROBIOLOGY PROFESSOR, Kiya Attending Unavailable Percy MICROBIOLOGY PROFESSOR, Kiya Referring Unavailable Percy MICROBIOLOGY PROFESSOR, Kiya Consulting Unavailable Slarb CUSTOMER CONTACT SALES ASSOCIATE, Lilian Unavailable Unavailable Percy CLIENT SOLUTIONS SPECIALIST-C, Kiya Primary Care Provider [phone] Percy CLIENT SOLUTIONS SPECIALIST-C, Kiya Referring Provider Dr. Dorothy Lee MD Attending Provider Dr. Dorothy Lee MD Referring Provider Dr. Rose Mahmood DO Attending Provider Dr. Rose Mahmood DO Referring Provider NO PRIMARY CARE, Primary Care Unavailable IRENE CARL Attending Unavailable ROSE FRIEDMAN Referring Unavailab le NO PRIMARY CARE, Primary Care Unavailable ROSE FRIEDMAN Referring Unavailab le LÓPEZ WHALEN Attending Unavailable Ranjana Neil CNM Attending Provider [phone] Ranjana Neil CNM Referring Provider [phone] Percy CLIENT SOLUTIONS SPECIALIST-C, Kiya Primary Care Provider [phone] Percy CLIENT SOLUTIONS SPECIALIST-C, Kiya Referring Provider Dr. Dorothy Lee MD Attending Provider Percy CLIENT SOLUTIONS SPECIALIST-C, Kiya Primary Care Physician [phone] Dr. Rose Mahmood DO Attending Physician Dr. Dorothy Lee MD Attending Physician Rashaad JOHNSON, Ranjana Attending Physician [phone] Percy CLIENT SOLUTIONS SPECIALIST-C, Kiya Primary Care Physician [phone] Percy CLIENT SOLUTIONS SPECIALIST-C, Kiya Referring Provider [phone] Dr. Rose Mahmood DO Attending Physician Percy CLIENT SOLUTIONS SPECIALIST-C, Kiya Primary Care Physician [phone] Percy CLIENT SOLUTIONS SPECIALIST-C, Kiya Referring Provider [phone] Jesus URBINA, Dr. De La Cruz Attending Physician Marie CLIENT SOLUTIONS SPECIALIST-C, Suzanne Attending Physician [phone] Percy, Kiya Referring Unavailable Dorothy Lee Attending Unavailable Percy, Kiya Primary Care Unavailable Percy, Kiya Primary Care Unavailable Percy, Kiya Referring Unavailable Vande VelRose chow Attending Unavailabl e Percy, Kiya Primary Care Unavailable Percy, Kiya Referring Unavailable Dorothy Lee Attending Unavailable Vande VelRose chow Attending Unavailabl e Percy, Kiya Primary Care Unavailable Percy, Kiya Referring Unavailable Percy, Kiya Referring Unavailable Percy, Kiya Primary Care Unavailable Dorothy Lee Attending Unavailable Percy, Kiya Referring Unavailable Percy, Kiya Primary Care Unavailable [place] CLIENT SOLUTIONS SPECIALIST, Suzanne Attending Unavailable Percy, Kiya Referring Unavailable Vande VelRose chow Attending Unavailabl e Percy, Kiya Primary Care Unavailable Percy, Kiya Primary Care Unavailable Dorothy Lee Consulting Unavailable Dorothy Lee Referring Unavailable Dorothy Lee Attending Unavailable Percy, Kiya Primary Care Unavailable Vande Rose Man Referring Unavailabl e Vande VelRose chow Attending Unavailabl e Percy, Kiya Primary Care Unavailable Percy, Kiya Referring Unavailable Dorothy Lee Attending Unavailable Dorothy Lee Referring Unavailable Dorothy Lee Attending Unavailable Percy, Kiya Primary Care Unavailable Vande Rose Man Attending Unavailabl e Percy, Kiya Primary Care Unavailable Percy, Kiya Referring Unavailable [place] CLIENT SOLUTIONS SPECIALISTSuzanne Referring Unavailable [place] CLIENT SOLUTIONS SPECIALIST, Suzanne Attending Unavailable Percy, Kiya Primary Care Unavailable Percy, Kiya Primary Care Unavailable Ranjana Neil Referring Unavailable Ranjana Neil Attending Unavailable Percy, Kiya Primary Care Unavailable Dorothy Lee Referring Unavailable Dorothy Lee Attending Unavailable Rose Mahmood Attending Unavailabl e Percy, Kiya Primary Care Unavailable Percy, Kiya Primary Care Unavailable Percy, Kiya Referring Unavailable Suzanne Salazar NP Attending Unavailable Percy, Kiya Primary Care Unavailable Percy, Kiya Referring Unavailable Rose Mahmood Attending Unavailabl e Percy, Kiya Referring Unavailable Rose Mahmood Attending Unavailabl e Percy, Kiya Primary Care Unavailable Percy, Kiya Referring Unavailable Percy, Kiya Primary Care Unavailable Dorothy Lee Attending Unavailable Allergies Allergy Classification Reported Allergen(s) Allergy Type Date of Onset Reaction(s) Facility (13 sources) Penicillin G; Translations: [Penicillin G Procaine *PENICILLINS*] Drug Allergy [facility] Work Phone: (17 sources) Penicillins; Translations: [Penicillins] Allergy to substance 2 [facility] Medications Current Medications Medication Drug Class(es) Dates Sig (Normalized) Sig (Original) cetirizine hydrochloride 10 mg oral tablet (11 sources) Histamine-1 Receptor Antagonist Start: 09-19-2024 take 1 tablet by mouth once daily as needed cholecalciferol 0.125 mg oral capsule (11 sources) Vitamin D Start: 04-28-2024 take 1 capsule by mouth once daily MAGNESIUM GLUCONATE (11 sources) Start: 04-28-2024 take 1 tablet by mouth once daily Start: 04-28-2024 take 1 tablet by mohit th once daily Magnesium Gluconate 30 mg tablet Active 30 mg PO daily April 28, 2024 1:00am Complies with drug therapy Start: 04-28-2024 take 1 tablet by mohit th once daily Magnesium Gluconate 30 mg tablet Active 30 mg PO daily April 28, 2024 1:00am metoprolol tartrate 25 mg oral tablet (3 sources) beta-Adrenergic Laxmi Start: 12-14-2021 take 25 mg by mouth twice daily Metoprolol Tartrate Active 25 MG PO TWICE A DAY December 14, 2021 12:00am Multivit 77-Bjhx-Bqtvyb 1-Dha (Pnv-Dha) 27 mg iron-1 mg -300 mg capsule (16 sources) Start: 06-14-2021 Multivit 66-Wuej-Rnrjtf 1-Dha (Pnv-Dha) 27 mg iron-1 mg -300 mg capsule Active CAP PO June 14, 2021 11:04am Start: 06-14-2021 Start: 06-14-2021 Multivit 47-Ir on-Folate 1-Dha (Pnv-Dha) 27 mg iron-1 mg -300 mg capsule Active 1 NMA PO June 14, 2021 1:00am Check with primary doctor Complies with drug therapy Start: 06-14-2021 Multivit 47-Ir on-Folate 1-Dha (Pnv-Dha) 27 mg iron-1 mg -300 mg capsule Active 1 NMA PO June 14, 2021 1:00am Check with primary doctor Start: 06-14-2021 Multivit 47-Ir on-Folate 1-Dha (Pnv-Dha) 27 mg iron-1 mg -300 mg capsule Active 1 NMA PO June 14, 2021 1:00am Start: 06-14-2021 Multivit 47-Ir on-Folate 1-Dha (Pnv-Dha) 27 mg iron-1 mg -300 mg capsule Active 1 CAP PO June 14, 2021 1:00am Start: 06-14-2021 Multivit 47-Ir on-Folate 1-Dha (Pnv-Dha) 27 mg iron-1 mg -300 mg capsule Active CAP PO June 14, 2021 1:00am Completed/Discontinued Medications Medication Drug Class(es) Dates Sig (Normalized) Sig (Original) ascorbic acid 60 mg / beta carotene 5000 unt / copper sulfate 40 mg / dl-alpha tocopheryl acetate 30 unt / sodium selenite 0.04 mg / zinc oxide 40 mg oral tablet (3 sources) Vitamin C Start: 08-25-2016 take 1 tablet by mouth once daily Multivitamin Adult Oral Tablet 1 (one) Tablet daily for 0 days Quantity: 30 {Tablet} Refills: 0 Ordered: 25-Aug-2016 Sowmya Baldwin CNP, CNP, Mary E Start : 25-Aug-2016 Active busPIRone hydrochloride 7.5 mg oral tablet (20 sources) Start: 04-03-2022 End: 04-28-2024 take 1 tablet by mouth twice daily Buspirone 7.5 mg tablet Discontinued 7.5 mg PO TWICE A DAY 60 April 13, 2023 11:21am April 28, 2024 12:17pm Start: 03-20-2022 End: 04-03-2022 take 1 tablet by mouth twice daily Buspirone 5 mg tablet Discontinued 5 mg PO TWICE A DAY 60 March 20, 2022 12:00am April 03, 2022 12:37pm 24 hr clarithromycin 500 mg extended release oral tablet (13 sources) Macrolide Antimicrobial Start: 05-23-2017 End: 05-30-2017 take 2 tablets by mouth once daily Biaxin XL Pac 500 MG Oral Tablet Extended Release 24 Hour 2 (two) Tablet daily for 7 days Quantity: 14 {Tablet} Refills: 0 Ordered: 23-May-2017 Sowmya Baldwin Start : 23-May-2017 End : 30-May-2017 Inactive Start: 05-23-2017 End: 05-30-2017 take 2 tablets by mouth once daily Biaxin XL Pac 500 MG Oral Tablet Extended Release 24 Hour 2 (two) Tablet daily for 7 days Quantity: 14 {Tablet} Refills: 0 Ordered: 23-May-2017 Sowmya Baldwin CNP, CNP Meron Start : 23-May-2017 End : 30-May-2017 Inactive Levonorgestrel-Ethinyl Estrad (20 sources) Progestin, Estrogen, Progestin-containing Intrauterine Device Start: 04-28-2024 End: 09-19-2024 Levonorgestrel-Ethinyl Estrad (Altavera (28)) 0.15-0.03 mg tablet Discontinued 1 {tbl} PO DAILY 84 April 28, 2024 12:22pm September 19, 2024 2:08pm dispense as written Start: 04-28-2024 End: 09-19-2024 Levonorgestrel-Ethinyl Estra d (Altavera (28)) 0.15-0.03 mg tablet Discontinued 1 {tbl} PO DAILY April 28, 2024 12:22pm September 19, 2024 2:08pm dispense as written Start: 04-13-2023 End: 04-28-2024 Levonorgestrel-Ethinyl Estra d (Altavera (28)) 0.15-0.03 mg tablet Discontinued 1 {tbl} PO DAILY 84 4 April 13, 2023 11:13am April 28, 2024 12:23pm dispense as written Start: 04-13-2023 End: 04-28-2024 Levonorgestrel-Ethinyl Estra d (Altavera (28)) 0.15-0.03 mg tablet Discontinued 1 {tbl} PO DAILY 84 April 13, 2023 11:13am April 28, 2024 12:23pm dispense as written Start: 01-23-2023 End: 04-13-2023 Levonorgestrel-Ethinyl Estra d (Altavera (28)) 0.15-0.03 mg tablet Discontinued 1 {tbl} PO DAILY 84 January 23, 2023 12:00am April 13, 2023 11:14am Start: 01-23-2023 End: 04-13-2023 Levonorgestrel-Ethinyl Estra d (Altavera (28)) 0.15-0.03 mg tablet Discontinued 1 {tbl} PO DAILY 84 January 23, 2023 12:00am April 13, 2023 11:14am Tri-Previfem (28) 0.18/0.215/0.25 mg-35 mcg (28) oral tablet (20 sources) Progestin, Estrogen Start: 08-09-2020 End: 09-19-2022 take 1 tablet by mouth once daily Tri-Previfem (28) 0.18/0.215/0.25 mg-35 mcg (28) oral tablet 1 (one) Tablet daily for 90 days Quantity: 90 {Tablet} Refills: 3 Ordered: 19-Sep-2022 Lilian Pineda LPN Start : 09-Aug-2020 End : 19-Sep-2022 Discontinued Comments: Start day 1 of menstrual cycl or Sunday after onset of menses Start: 08-09-2020 take 1 tablet by mohit th once daily Tri-Previfem 0.18/0.215/0.25 MG-35 MCG Oral Tablet 1 (one) Tablet daily for 90 days Quantity: 90 {Tablet} Refills: 3 Ordered: 09-Aug-2020 Sowmya Baldwin Start : 09-Aug-2020 Active Comments: Start day 1 of menstrual cycl or Sunday after onset of menses Start: 08-09-2020 take 1 tablet by mohit th once daily Tri-Previfem 0.18/0.215/0.25 MG-35 MCG Oral Tablet 1 (one) Tablet daily for 90 days Quantity: 90 {Tablet} Refills: 3 Ordered: 09-Aug-2020 Sowmya Baldwin Mary Start : 09-Aug-2020 Active Comments: Start day 1 of menstrual cycl or Sunday after onset of menses Start: 08-09-2020 take 1 tablet by mohit th once daily Tri-Previfem 0.18/0.215/0.25 MG-35 MCG Oral Tablet 1 (one) Tablet daily for 90 days Quantity: 90 {Tablet} Refills: 3 Ordered: 09-Aug-2020 Denny LIAM Sowmya Baldwin LIAM Sowmya Medina Start : 09-Aug-2020 Active Comments: Start day 1 of menstrual cycl or Sunday after onset of menses Start: 06-16-2019 End: 08-09-2020 take 1 tablet by mouth once Tri-Linyah 0.18/0.215/0.25 MG-35 MCG Oral Tablet 1 (one) Tablet TAD for 0 days Quantity: 3 {Package} Refills: 4 Ordered: 09-Aug-2020 Rosalino Ramírez LPN Start : 16-Jun-2019 End : 09-Aug-2020 Inactive Comments: start day 1 of menstrual cycle or first sunday after onset of menses. Start: 07-15-2018 take 1 tablet by mohit th once daily Tri-Previfem 0.18/0.215/0.25 MG-35 MCG Oral Tablet 1 (one) Tablet daily for 28 days Quantity: 28 {Tablet} Refills: 11 Ordered: 15-Jul-2018 Sowmya Baldwin CNP, CNP, Mary E Start : 15-Jul-2018 Active Comments: Start day 1 of menstrual cycl or Sunday after onset of menses Comment on above: Start day 1 of menst rual cycl or Sunday after onset of menses start day 1 of menst rual cycle or sunday after onset of menses. Multivitamin Adult Oral Tablet (10 sources) Start: 03-17-201 7 take 1 tablet by mouth once daily Multivitamin Adult Oral Tablet 1 (one) Tablet daily for 0 days Quantity: 30 {Tablet} Refills: 0 Ordered: 19-Sep-2022 Lilian Pineda LPN Start : 25-Aug-2016 Active Start: 08-25-2016 take 1 tablet by mohit th once daily Multivitamin Adult Oral Tablet 1 (one) Tablet daily for 0 days Quantity: 30 {Tablet} Refills: 0 Ordered: 25-Aug-2016 Sowmya Baldwin Start : 25-Aug-2016 Active Start: 08-25-2016 take 1 tablet by mohit th once daily Multivitamin Adult Oral Tablet 1 (one) Tablet daily for 0 days Quantity: 30 {Tablet} Refills: 0 Ordered: 25-Aug-2016 Sowmya Baldwin Carmengabino Sowmya Start : 25-Aug-2016 Active Start: 08-25-2016 take 1 tablet by mohit th once daily Multivitamin Adult Oral Tablet 1 (one) Tablet daily for 0 days Quantity: 30 {Tablet} Refills: 0 Ordered: 25-Aug-2016 Denny WHEELER Sowmya Medina Denny WHEELER Sowmya Medina Start : 25-Aug-2016 Active norethindrone 0.35 mg oral tablet (14 sources) Start: 03-20-2022 End: 01-23-2023 take 1 tablet by mouth once daily Norethindrone (Contraceptive) (Ortho Micronor) 0.35 mg tablet Discontinued 0.35 mg PO DAILY 07 06March 20, 2022 12:00am January 23, 2023 2:22pm start day 1 of menstrual cycle predniSONE 10 mg oral tablet (13 sources) Start: 05-23-2017 End: 06-10-2018 PredniSONE 10 MG Oral Tablet 1 (one) Tablet bid x 2 days for 0 days Quantity: 4 {Tablet} Refills: 0 Ordered: 10-Jun-2018 Ele Osorio Start : 23-May-2017 End : 10-Jun-2018 Discontinued Comments: with food Comment on above: with food sertraline 50 mg oral tablet (20 sources) Serotonin Reuptake Inhibitor Start: 04-13-2023 End: 04-28-2024 take 1 tablet by mouth once daily Sertraline (Zoloft) 50 mg tablet Discontinued 50 mg PO DAILY April 20, 2024 4:33pm April 28, 2024 12:23pm Tri-Previfem ( control) (9 sources) End: 06-10-2018 Tri-Previfem ( control) daily End : 10-Jun-2018 Discontinued Problems Active Problems Problem Classification Problem Date Documented Date Episodic/Chronic Administrative/social admission (7 sources) Medical examinations/reports status; Translations: [Patient encounter status] 06-10-2018 Episodic Comment on above: up to date on immuni zations. no concerns today Anxiety disorders (20 sources) Anxiety; Translations: [Anxiety] Onset: 04-20-2025 09-19-2022 Chronic Comment on above: treated by [facility] Dr Abiel Lee, put her on buspar. Zoloft. counseling r ecommended. Asthma (20 sources) Asthma; Translations: [Unspecified asthma, uncomplicated] Chronic Comment on above: as a child, resolved . 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] Episodic Comment on above: methergine cytotec p itocin massage ebl 600 Heart valve disorders (18 sources) Heart murmur; Translations: [Cardiac murmur, unspecified] Episodic Immunizations and screening for infectious disease (1 source) Encounter for immunization; Translations: [Encounter for immunization] Onset: 02-11-2025 Episodic Mood disorders (20 sources) Depressive disorder; Translations: [Depression] 04-28-2024 Chronic Mood disorders (1 source) Mood disorders; Translations: [Depression, unspecified] Onset: 04-20-2025 Other conditions (19 sources) tachycardia; Translations: [ tachycardia] Episodic Comment on above: transient and reacti ve NST Other and delivery including normal (20 sources) Normal ; Translations: [Encounter for supervision of normal , unspecified, unspecified trimester] Onset: 03-09-2025 Episodic Comment on above: SM IOL postdates 41 girl Michael atony pit fb , ANJEL 04/29, PC Michael, Itz PRR ANJEL: 2 surprise Spouse: Itz Requests docs or Mol ly only. declined NIPT & Carrier testing GBS Negative, sole ed ntd genetics and carrier, NL anatomy scan, NL growth US PRR , ANJEL 04/29, PC Michael, Itz PRR , ANJEL 04/29, girl Alicia PC Michael, Itz Other upper respiratory disease (16 sources) Seasonal allergy; Translations: [Other seasonal allergic rhinitis] 02-05-2022 Chronic Comment on above: takes PRN OTC allerg y medication Other upper respiratory disease (20 sources) Other seasonal allergic rhinitis; Translations: [Allergic rhinitis, cause unspecified] Chronic Other upper respiratory infections (20 sources) Acute pharyngitis; Translations: [Acute pharyngitis] 06-10-2018 Episodic Comment on above: tonsilitis in past, severe throat pain Residual codes; unclassified (20 sources) Family history of breast cancer; Translations: [Family history of breast cancer] 06-10-2018 Episodic Comment on above: grand mother and gre at grandmother with breast cancer, is considering BRaca testing she will inquire by insurance co Residual codes; unclassified (20 sources) Body mass index 20-24 - normal; Translations: [BMI 22.0-22.9, adult] Resolved: 09-19-2022 08-09-2020 Episodic Residual codes; unclassified (17 sources) Finding of body mass index; Translations: [BMI between 19-24,adult] 06-16-2019 Episodic Residual codes; unclassified (20 sources) Non-smoker; Translations: [Nonsmoker] 08-09-2020 Episodic Residual codes; unclassified (13 sources) Uses contraception; Translations: [Uses control] 06-10-2018 Episodic Comment on above: tri pre vifem Residual codes; unclassified (16 sources) History of vaccination; Translations: [Personal history of other drug therapy] 09-23-2021 Episodic Comment on above: Mar 2021 Pfizer Residual codes; unclassified (16 sources) Family history of congenital anomaly of cardiovascular system; Translations: [Family history of other congenital malformations, deformations and chromosomal abnormalities] 02-05-2022 Episodic Comment on above: patient's niece had TGA w/ VSD repair surgically Residual codes; unclassified (20 sources) Family history of other congenital malformations, deformations and chromosomal abnormalities; Translations: [Family history of congenital anomalies] Onset: 04-20-2025 Episodic Residual codes; unclassified (5 sources) Personal history of other drug therapy; Translations: [Personal history of other drug therapy] Episodic Residual codes; unclassified (20 sources) History of gynecological disorder; Translations: [Personal history of other complications of , childbirth and the puerperium] 09-19-2024 Episodic Residual codes; unclassified (12 sources) FH: Congenital heart disease; Translations: [Family history of other congenital malformations, deformations and chromosomal abnormalities] 12-15-2024 Episodic Comment on above: echo echo declined Residual codes; unclassified (19 sources) Family history of transposition of great vessels; Translations: [Family history of other congenital malformations, deformations and chromosomal abnormalities] 01-26-2025 Episodic Comment on above: echo declined Residual codes; unclassified (1 source) Personal history of other complications of , childbirth and the puerperium; Translations: [Personal history of other complications of , childbirth and the puerperium] Onset: 04-20-2025 Episodic Residual codes; unclassified (1 source) 38 weeks gestation of ; Translations: [38 weeks gestation of ] Onset: 04-20-2025 Episodic Residual codes; unclassified (1 source) 32 weeks gestation of ; Translations: [32 weeks gestation of ] Onset: 03-09-2025 Episodic Residual codes; unclassified (1 source) 31 weeks gestation of ; Translations: [31 weeks gestation of ] Onset: 02-25-2025 Episodic Residual codes; unclassified (1 source) 29 weeks gestation of ; Translations: [29 weeks gestation of ] Onset: 02-11-2025 Episodic Residual codes; unclassified (1 source) 26 weeks gestation of ; Translations: [26 weeks gestation of ] Onset: 01-26-2025 Episodic Past or Other Problems Problem Classification Problem Date Documented Date Episodic/Chronic Other screening for suspected conditions (not mental disorders or infectious disease) (1 source) Encounter for screening for malignant neoplasm of cervix; Translations: [Encounter for screening for malignant neoplasm of cervix] Onset: 05-27-2024 Episodic Residual codes; unclassified (1 source) 15 weeks gestation of ; Translations: [15 weeks gestation of ] Onset: 11-05-2024 Episodic Residual codes; unclassified (1 source) 9 weeks gestation of ; Translations: [9 weeks gestation of ] Onset: 09-29-2024 Episodic Unclassified (20 sources) Well woman exam (Renamed from Encounter for well woman exam); Translations: [Patient encounter status] 08-09-2020 Unclassified (13 sources) Uses control; Translations: [Uses contraception] 06-10-2018 Comment on above: tri pre vifem Unclassified (20 sources) Finding of body mass index; Translations: [BMI between 19-24,adult] 06-10-2018 Unclassified (4 sources) Patient encounter status; Translations: [General counseling on prescription of oral contraceptives (Renamed from Encounter for general counseling on prescription of oral contraceptives)] 06-10-2018 Unclassified (20 sources) Non-smoker; Translations: [Nonsmoker] 06-10-2018 Unclassified (20 sources) Unspecified Diagnosis 06-10-2018 Unclassified (20 sources) Unclassified (20 sources) BMI 23.0-23.9, adult; Translations: [Body mass index 20-24 - normal] Resolved: 08-09-2020 06-10-2018 Unclassified (17 sources) Family history of breast cancer Unclassified (11 sources) BMI 22.0-22.9, adult; Translations: [Body mass index 20-24 - normal] 08-09-2020 Unclassified (3 sources) 1 live -vaginal delivery 09-19-2022 Results Test Name Value Interpretation Reference Range Facility AST(SGOT)on 04-20-2025 AST [Catalytic activity/Vol] 20 U/L Normal <=31 [facility] Comment on above: Performed By: #### L 501.1400, L501.0900, L501.4100, L501.4405, L100.0500, L501.1105 ####[facility] [id number] [place], [place], [id number] Alanine Aminotransferas (SGP T)on 04-20-2025 ALT [Catalytic activity/Vol] 16 U/L Normal <=34 [facility] Comment on above: Performed By: #### L 501.1400, L501.0900, L501.4100, L501.4405, L100.0500, L501.1105 ####[facility] [id number] [place], [address] CBC-Complete Blood Cnt No Di ffon 04-20-2025 Erythrocyte distribution width (RBC) [Ratio] 14.7 % High 11.6-14.6 [facility] Comment on above: Performed By: #### L 501.1400, L501.0900, L501.4100, L501.4405, L100.0500, L501.1105 ####[facility] [address] [place], [address] Hematocrit (Bld) [Volume fraction] 35.0 % Low 37-47 [facility] Comment on above: Performed By: #### L 501.1400, L501.0900, L501.4100, L501.4405, L100.0500, L501.1105 ####[facility] [address] [place], [address] Hemoglobin (Bld) [Mass/Vol] 11.8 g/dL Low 12.0-15.0 [facility] Comment on above: Performed By: #### L 501.1400, L501.0900, L501.4100, L501.4405, L100.0500, L501.1105 ####[facility] [address] [place], [address] MCH (RBC) [Entitic mass] 30.3 pg Normal 27.0-32.0 [facility] Comment on above: Performed By: #### L 501.1400, L501.0900, L501.4100, L501.4405, L100.0500, L501.1105 ####[facility] [address] [place], [address] MCHC (RBC) [Mass/Vol] 33.7 g/dL Normal 32-36 [facility] Comment on above: Performed By: #### L 501.1400, L501.0900, L501.4100, L501.4405, L100.0500, L501.1105 ####[facility] [address] [place], [address] MCV (RBC) [Entitic vol] 89.7 fL Normal 81-99 [facility] Comment on above: Performed By: #### L 501.1400, L501.0900, L501.4100, L501.4405, L100.0500, L501.1105 ####[facility] [address] [place], [address] Platelet mean volume (Bld) [Entitic vol] 10.9 fL Normal 6.2-12.0 [facility] Comment on above: Performed By: #### L 501.1400, L501.0900, L501.4100, L501.4405, L100.0500, L501.1105 ####[facility] [address] [place], [address] Platelets (Bld) [#/Vol] 158 10*3/uL Normal 150-450 [facility] Comment on above: Performed By: #### L 501.1400, L501.0900, L501.4100, L501.4405, L100.0500, L501.1105 ####[facility] [address] [place], [address] RBC (Bld) [#/Vol] 3.90 10*6/uL Low 4.2-5.[address] [facility] Comment on above: Performed By: #### L 501.1400, L501.0900, L501.4100, L501.4405, L100.0500, L501.1105 ####[facility] [address] [place], [address] RDW SD 46.9 fl High 35.1-43.9 [facility] Comment on above: Performed By: #### L 501.1400, L501.0900, L501.4100, L501.4405, L100.0500, L501.1105 ####[facility] [address] [place], [address] WBC (Bld) [#/Vol] 8.1 10*3/uL Normal 4.4-11.0 [facility] Comment on above: Performed By: #### L 501.1400, L501.0900, L501.4100, L501.4405, L100.0500, L501.1105 ####[facility] [address] [place], [address] OB Triage Progress Noteon OB Triage Progress Note [facility] Medical Records Department [address] [place] [address] OB Triage Progress Note 04/20/25 1334 MR#: [id number] Acct: [id number] Name: MARTIN CASTELLANOS Rep #: [id number] : 1995 29 From: Dorothy Lee MD PCP: Kiya Greer NP-C Status:REG CLI Y DOS: Location: [place] [address] Progress Notes Date of Service: 04/20/25 Progress Note: Patient presents for triage evaluation secondary to elevated bps in the office FHT: 130 Moderate variability reactive no decelerations category I tracing [place]: no regular Contractions Assessment and plan: elevated bps 38 weeks reviewed preeclmapsia precauitons labs WNL all repeta bps WNL Reactive NST, reassuring maternal and status patient discharged to home to follow-up bp check at home reviewed precautions fu next week in office. See problem list details for additional plan information. Laboratory Studies: Laboratory Tests 04/20/25 Range/Units 11:45 WBC 8.1 (4.4-11.0) K/mm3 RBC 3.90 L (4.2-5.4) M/mm3 Hgb 11.8 L (12.0-15.0) g/dL Hct 35.0 L (37-47) % MCV 89.7 (81-99) fL MCH 30.3 (27.0-32.0) pg MCHC 33.7 (32-36) g/dL RDW Std Deviation 46.9 H (35.1-43.9) fl RDW Coeff of Jovon 14.7 H (11.6-14.6) % Plt Count 158 (150-450) K/mm3 MPV 10.9 (6.2-12.0) fl Creatinine 0.63 L (0.70-1.20) mg/dL Estim Creat Clear Calc 147.14 (50-250) ml/min Est GFR (MDRD) Non-Af 123 (>60) Uric Acid 4.8 (2.6-6.0) mg/dL AST 20 (<=31) U/L ALT 16 (<=34) U/L U Random Total Protein 9.3 (0.0-12.0) mg/dL Urine Creatinine 47.90 (28.00-217.00) mg/dL Protein/Creatinin Ratio 195 (0-200) mg/g CRE Charges/Coding Procedures Urinary/Genital 52xxx-59xxx: [id number] non-stress test Interp 04/20/25 1336 Date Dorothy Lee MD Cosigner Signature (if applicable): Date CC: CLIENT SOLUTIONS SPECIALISTAnilC Kiya Greer; Dr. Dorothy Lee MD Signed Normal [facility] Interactive Developer Office Visit Reporton 04-20-2025 Interactive Developer Office Visit Report [facility]'s [address], [address] [place] [address] OFFICE VISIT Date of Service: 04/20/25 MR#: [id number] Acct: [id number] Name: MARTIN CASTELLANOS LUZ Rep #: [id number] : 1995 Provider: Dr. Dorothy fields MD Age/Sex: 29/F Location: [facility] Status: Signed Intake Vital Signs 03/23/25 13:40 04/14/25 08:57 04/20/25 10:44 04/20/25 10:48 04/20/25 10:48 Height 5 ft 4 in 5 ft 4 in 5 ft 4 in 5 ft 4 in Weight: 210 lb 4 oz 209 lb 7 oz BMI 36.1 35.9 BP 135/82 H 145/91 H 135/92 H Intake Visit Reasons: 38wk 5d ob Automotive Vehicle Inspector Required: No Is patient in pain?: No Allergies Penicillins Allergy (Intermediate, Verified 04/20/25 10:43) Hives Medications ???Medication ???Instructions ???Recorded ???Confirmed ???Type multivitamin no.47-iron fum 27 1 cap PO Check with primary doctor 06/14/21 04/20/25 History mg-folate no.1 1 mg-dha 300 mg capsule (PNV-DHA) cholecalciferol (vitamin D3) 125 125 mcg PO QDAY 04/28/24 04/20/25 History mcg (5,000 unit) capsule magnesium gluconate 30 mg tablet 30 mg PO QDAY 04/28/24 04/20/25 Hi story sertraline 50 mg tablet (Zoloft) 50 mg PO DAILY #90 tabs 04/28/24 1 06/20/24 Rx cetirizine 10 mg tablet (Zyrtec) 10 mg PO QDAY PRN 09/19/24 5 History Last Menstrual Period: 07/23/24 Zika: Zika virus screening: Negative : No PFSH PFSH Medical History 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 Vaginal delivery COVID-19 vaccine series completed Surgical History H/O wisdom tooth extraction Family History Mother Hypertension Grandmother Breast cancer Paternal grt Grandmother Grandmother Hypertension Breast cancer, Onset Age: 60 Paternal Social History adopted: No household members: spouse housing: house number of children: 1 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al status: employed 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 [employer] pets and animals: Yes pets and animals: dog(s) history of recent travel: No sexually active: Yes Smoking Status: Never smoker second hand exposure: Yes alcohol intake: current alcohol intake frequency: holidays/special occasions only details: not while substance use type: does not use well-balanced diet: daily or most days caffeine: Yes Type: coffee Number of servings: 1 eating out: rarely or never during the past year weight has: remained stable what type of physical activity do you participate in: other details: Pelaton frequency: 3-4 times per week duration: 30-45 minutes/day juan alberto/lutheran: Druze seatbelt use: always do you feel safe at home: Yes additional social history: - Itz History 2 Elective abortions Hx Para 1 Spontaneous abortions Hx # Term Pregnancies Ectopic pregnancies Hx # Pregnancies Multiple births # of living children 1 Past Pregnancies Del. Date Name GA/Weeks Outcome Route Bth Weight Gen Labor Lgth Anesthesia Del Locatn Provider FOB 02/05/22 Michael 41 live - full term 8#3oz Female epidural [facility] audra Mobley Delivery Date: 02/05/22 Last Updated by: Ruthie Costello see problem list for complications, and 41 IOL postdates sm girl michael atony HPI 38wk 5d ob Details: MARTIN CASTELLANOS is a 29 year old who presents for routine OB visit. OB Visit ANJEL Calculator Estimated Delivery Date Method Current WG Current Estimate 04/29/25 LMP (Certain) 38w 5d Expected Delivery Route/Plan Labor Preferences- CB/BF classes: no labor support person: Itz labor intervention preferences: [] pain management options preferred: epidural cut cord/dad catch: yes : yes PP control planned: [] discussed possible routes of delivery and associated risks: [] special requests: [] Specific Issue/Plans Covid status: [] Flu vaccine: declines Tdap vaccine: given Rhogam: NA LARC form signed: declined movement and labor precautions reviewed. Problem list reviewed and updated with the most current plan of care details and appropriate orders placed. Relevant counseling for the gestational age provided. Continue routine care and follow up unless otherwise noted in visit notes/problem list details Initial Weight: Not Recorded Date -???-???-???-???-???-? ??-???-???-???-???-??? -???- EGA Weight BP Urine Prot -???-???-???-???-???-? ??-???-???-???-???-??? -???- Glucose FHR FuHt Pres Dilation -???-???-???-???-???-? ??-???-???-???-???-??? -???- Effaced St Visit Note 09/29/24 -???-???-???-???-???-? ??-???-???-???-???-?? (more content not included)... Normal [facility] Protein+Creatinine Ratio,Uri neon 04-20-2025 PROT:CRE RATIO 195 mg/g CRE Normal 0-200 [facility] Comment on above: Performed By: #### L 501.1400, L501.0900, L501.4100, L501.4405, L100.0500, L501.1105 ####[facility] [address] [place], [place], [id number] Protein (U) [Mass/Vol] 9.3 mg/dL Normal 0.0-12.0 [facility] Comment on above: Performed By: #### L 501.1400, L501.0900, L501.4100, L501.4405, L100.0500, L501.1105 ####[facility] [address] [place], [address] UR CREAT 47.90 mg/dL Normal 28.00-217.00 [facility] Comment on above: Performed By: #### L 501.1400, L501.0900, L501.4100, L501.4405, L100.0500, L501.1105 ####[facility] [address] [place], [address] Serum Creatinine AND GFRon 1 06-20-2024 Creatinine [Mass/Vol] 0.63 mg/dL Low 0.70-1.20 [facility] Comment on above: Performed By: #### L 501.1400, L501.0900, L501.4100, L501.4405, L100.0500, L501.1105 ####[facility] [address] [place], [address] ECRCL 147.14 ml/min Normal 50-250 [facility] Comment on above: Performed By: #### L 501.1400, L501.0900, L501.4100, L501.4405, L100.0500, L501.1105 ####[facility] [address] [place], [address] GFR/1.73 sq M.predicted among non-blacks MDRD (S/P/Bld) [Vol rate/Area] 123 mL/min/{1.73_m2} Normal >60 [facility] Comment on above: Result Comment: mL/m in/1.73m2 CKD-EPI Creatinine Equation (2020) Performed By: #### L 501.1400, L501.0900, L501.4100, L501.4405, L100.0500, L501.1105 ####[facility] [address] [place], [address] Uric Acidon 04-20-2025 URIC 4.8 mg/dL Normal 2.6-6.0 [facility] Comment on above: Result Comment: The drugs N-Acetylcysteine and Metamizole may falsely depress this assay. Performed By: #### L 501.1400, L501.0900, L501.4100, L501.4405, L100.0500, L501.1105 ####[facility] [address] [place], [address] Interactive Developer Office Visit Reporton 04-14-2025 Interactive Developer Office Visit Report [facility]'s [address], [address] [place] [address] OFFICE VISIT Date of Service: 04/14/25 MR#: [id number] Acct: [id number] Name: MARTIN CASTELLANOS Rep #: [id number] : 1995 Provider: Dr. Rose Wolfe DO Age/Sex: 29/F Location: [facility] Status: Signed Intake Vital Signs 03/23/25 13:40 04/06/25 14:20 04/14/25 08:57 04/14/25 09:24 Height 5 ft 4 in 5 ft 4 in 5 ft 4 in Weight: 210 lb 4 oz BMI 36.1 BP 135/82 H 124/82 H Intake Visit Reasons: 37wk 6d ob Chief Complaint: 37wk OB Automotive Vehicle Inspector Required: No Is patient in pain?: No Allergies Penicillins Allergy (Intermediate, Verified 04/14/25 08:56) Hives Medications ???Medication ???Instructions ???Recorded ???Confirmed ???Type multivitamin no.47-iron fum 27 1 cap PO Check with primary doctor 06/14/21 04/14/25 History mg-folate no.1 1 mg-dha 300 mg capsule (PNV-DHA) cholecalciferol (vitamin D3) 125 125 mcg PO QDAY 04/28/24 04/14/25 History mcg (5,000 unit) capsule magnesium gluconate 30 mg tablet 30 mg PO QDAY 04/28/24 04/14/25 Hi story sertraline 50 mg tablet (Zoloft) 50 mg PO DAILY #90 tabs 04/28/24 1 06/14/24 Rx cetirizine 10 mg tablet (Zyrtec) 10 mg PO QDAY PRN 09/19/24 5 History Last Menstrual Period: 07/23/24 : No Have you fallen in the past year?: No PFSH PFSH Medical History 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 Vaginal delivery COVID-19 vaccine series completed Surgical History H/O wisdom tooth extraction Family History Mother Hypertension Grandmother Breast cancer Paternal grt Grandmother Grandmother Hypertension Breast cancer, Onset Age: 60 Paternal Social History adopted: No household members: spouse housing: house number of children: 1 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al status: employed 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 [employer] pets and animals: Yes pets and animals: dog(s) history of recent travel: No sexually active: Yes Smoking Status: Never smoker second hand exposure: Yes alcohol intake: current alcohol intake frequency: holidays/special occasions only details: not while substance use type: does not use well-balanced diet: daily or most days caffeine: Yes Type: coffee Number of servings: 1 eating out: rarely or never during the past year weight has: remained stable what type of physical activity do you participate in: other details: Pelaton frequency: 3-4 times per week duration: 30-45 minutes/day juan alberto/lutheran: Druze seatbelt use: always do you feel safe at home: Yes additional social history: - Itz History 2 Elective abortions Hx Para 1 Spontaneous abortions Hx # Term Pregnancies Ectopic pregnancies Hx # Pregnancies Multiple births # of living children 1 Past Pregnancies Del. Date Name GA/Weeks Outcome Route Bth Weight Infant Gen Labor Lgth Anesthesia Del Locatn Provider FOB 02/05/22 Michael 41 live - full term 8#3oz Female epidural [facility] audra Mobley Delivery Date: 02/05/22 Last Updated by: Ruthie Costello see problem list for complications, and 41 IOL postdates sm girl michael atony HPI 37wk 6d ob Details: MARTIN CASTELLANOS is a 29 year old who presents for routine OB visit. OB Visit ANJEL Calculator Estimated Delivery Date Method Current WG Current Estimate 04/29/25 LMP (Certain) 37w 6d Expected Delivery Route/Plan Labor Preferences- CB/BF classes: no labor support person: Itz labor intervention preferences: [] pain management options preferred: epidural cut cord/dad catch: yes : yes PP control planned: [] discussed possible routes of delivery and associated risks: [] special requests: [] Specific Issue/Plans Covid status: [] Flu vaccine: declines Tdap vaccine: given Rhogam: NA LARC form signed: declined movement and labor precautions reviewed. Problem list reviewed and updated with the most current plan of care details and appropriate orders placed. Relevant counseling for the gestational age provided. Continue routine care and follow up unless otherwise noted in visit notes/problem list details Initial Weight: Not Recorded Date -???-???-???-???-???-? ??-???-???-???-???-??? -???- EGA Weight BP Urine Prot -???-???-???-???-???-? ??-???-???-???-???-??? -???- Glucose FHR FuHt Pres Dilation -???-???-???-???-???-? ??-???-???-???-???-??? -???- Effaced St Visit Note 09/29/24 -???-???-???-???-???-? ??-???-???-???-???-??? -???- 9w 5d 171 lb 4 oz 129/78 -???- (more content not included)... Normal [facility] Rule out Beta Strep (Grp. B) on 04-08-2025 LUIS Group B Beta Streptococcus is not isolated. Normal [facility] Comment on above: Performed By: #### M [id number] ####[facility] [address] [place], [address] Laboratory - Chemistry and C hemistry - challengeOrdered By: Roes Man on 04-06-2025 Glucose Ql (U) Negative [facility] Laboratory - UrinalysisOrder ed By: Rose Man on 04-06-2025 Protein Ql (U) Negative [facility] Interactive Developer Office Visit Reporton 04-06-2025 Interactive Developer Office Visit Report [facility]'s [address], [address] [place] [address] OFFICE VISIT Date of Service: 04/06/25 MR#: [id number] Acct: [id number] Name: MARTIN CASTELLANOS Rep #: [id number] : 1995 Provider: Dr. Rose Wolfe, Age/Sex: 29/F Location: [facility] [place] Status: Signed Intake Vital Signs 02/11/25 09:41 03/23/25 13:40 04/06/25 14:18 04/06/25 14:20 Height 5 ft 4 in 5 ft 4 in 5 ft 4 in 5 ft 4 in Weight: 207 lb 1 oz 206 lb 2 oz BMI 35.5 35.4 BP 112/81 H 126/81 H Intake Visit Reasons: 36wk 5d ob Automotive Vehicle Inspector Required: No Is patient in pain?: No Allergies Penicillins Allergy (Intermediate, Verified 04/06/25 14:17) Hives Medications ???Medication ???Instructions ???Recorded ???Confirmed ???Type multivitamin no.47-iron fum 27 1 cap PO Check with primary doctor 06/14/21 04/06/25 History mg-folate no.1 1 mg-dha 300 mg capsule (PNV-DHA) cholecalciferol (vitamin D3) 125 125 mcg PO QDAY 04/28/24 04/06/25 History mcg (5,000 unit) capsule magnesium gluconate 30 mg tablet 30 mg PO QDAY 04/28/24 04/06/25 Hi story sertraline 50 mg tablet (Zoloft) 50 mg PO DAILY #90 tabs 04/28/24 1 Rx cetirizine 10 mg tablet (Zyrtec) 10 mg PO QDAY PRN 09/19/24 5 History Last Menstrual Period: 07/23/24 Zika: Zika virus screening: Negative : No PFSH PFSH Medical History 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 Vaginal delivery COVID-19 vaccine series completed Surgical History H/O wisdom tooth extraction Family History Mother Hypertension Grandmother Breast cancer Paternal grt Grandmother Grandmother Hypertension Breast cancer, Onset Age: 60 Paternal Social History adopted: No household members: spouse housing: house number of children: 1 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al status: employed 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 [employer] pets and animals: Yes pets and animals: dog(s) history of recent travel: No sexually active: Yes Smoking Status: Never smoker second hand exposure: Yes alcohol intake: current alcohol intake frequency: holidays/special occasions only details: not while substance use type: does not use well-balanced diet: daily or most days caffeine: Yes Type: coffee Number of servings: 1 eating out: rarely or never during the past year weight has: remained stable what type of physical activity do you participate in: other details: Pelaton frequency: 3-4 times per week duration: 30-45 minutes/day juan alberto/lutheran: Druze seatbelt use: always do you feel safe at home: Yes additional social history: - Itz History 2 Elective abortions Hx Para 1 Spontaneous abortions Hx # Term Pregnancies Ectopic pregnancies Hx # Pregnancies Multiple births # of living children 1 Past Pregnancies Del. Date Name GA/Weeks Outcome Route Bth Weight Gen Labor Lgth Anesthesia Del Locatn Provider FOB 02/05/22 Michael 41 live - full term 8#3oz Female epidural [facility] Jesus Mobley Delivery Date: 02/05/22 Last Updated by: Ruthie Costello see problem list for complications, and 41 IOL postdates sm girl michael atony HPI 36wk 5d ob Details: MARTIN CASTELLANOS is a 29 year old who presents for routine OB visit. OB Visit ANJEL Calculator Estimated Delivery Date Method Current WG Current Estimate 04/29/25 LMP (Certain) 36w 5d Expected Delivery Route/Plan Labor Preferences- CB/BF classes: no labor support person: Itz labor intervention preferences: [] pain management options preferred: epidural cut cord/dad catch: yes : yes PP control planned: [] discussed possible routes of delivery and associated risks: [] special requests: [] Specific Issue/Plans Covid status: [] Flu vaccine: declines Tdap vaccine: given Rhogam: NA LARC form signed: declined movement and labor precautions reviewed. Problem list reviewed and updated with the most current plan of care details and appropriate orders placed. Relevant counseling for the gestational age provided. Continue routine care and follow up unless otherwise noted in visit notes/problem list details Initial Weight: Not Recorded Date -???-???-???-???-???-? ??-???-???-???-???-??? -???- EGA Weight BP Urine Prot -???-???-???-???-???-? ??-???-???-???-???-??? -???- Glucose FHR FuHt Pres Dilation -???-???-???-???-???-? ??-???-???-???-???-??? -???- Effaced St Visit Note 09/29/24 -???-???-???-???-???-? ??-???-???-???-???-??? -???- 9w 5d 171 lb (more content not included)... Normal [facility] Laboratory - Chemistry and C hemistry - challengeOrdered By: Suzanne Salazar on 03-23-2025 Glucose Ql (U) Negative [facility] Laboratory - UrinalysisOrder ed By: Suzanne Salazar on 03-23-2025 Protein Ql (U) Negative [facility] Interactive Developer Office Visit Reporton 03-23-2025 Interactive Developer Office Visit Report [facility]'s [address], [address] [place] [address] OFFICE VISIT Date of Service: 03/23/25 MR#: [id number] Acct: [id number] Name: MARTIN CASTELLANOS Rep #: [id number] : 1995 Provider: LUCINDA rodriguez Age/Sex: 29/F Location: [facility] [place] Status: Signed Intake Vital Signs 02/11/25 09:41 03/09/25 09:27 03/23/25 13:40 Height 5 ft 4 in 5 ft 4 in 5 ft 4 in Weight: 207 lb 1 oz BMI 35.5 BP 112/81 H Intake Visit Reasons: 34wk ob Automotive Vehicle Inspector Required: No Is patient in pain?: No Allergies Penicillins Allergy (Intermediate, Verified 03/23/25 13:42) Hives Medications ???Medication ???Instructions ???Recorded ???Confirmed ???Type multivitamin no.47-iron fum 27 1 cap PO Check with primary doctor 06/14/21 03/23/25 History mg-folate no.1 1 mg-dha 300 mg capsule (PNV-DHA) cholecalciferol (vitamin D3) 125 125 mcg PO QDAY 04/28/24 03/23/25 History mcg (5,000 unit) capsule magnesium gluconate 30 mg tablet 30 mg PO QDAY 04/28/24 03/23/25 Hi story sertraline 50 mg tablet (Zoloft) 50 mg PO DAILY #90 tabs 04/28/24 1 Rx cetirizine 10 mg tablet (Zyrtec) 10 mg PO QDAY PRN 09/19/24 5 History Last Menstrual Period: 07/23/24 Zika: Zika virus screening: Negative : Yes PFSH PFSH Medical History 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 Vaginal delivery COVID-19 vaccine series completed Surgical History H/O wisdom tooth extraction Family History Mother Hypertension Grandmother Breast cancer Paternal grt Grandmother Grandmother Hypertension Breast cancer, Onset Age: 60 Paternal Social History adopted: No household members: spouse housing: house number of children: 1 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al status: employed 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 [employer] pets and animals: Yes pets and animals: dog(s) history of recent travel: No sexually active: Yes Smoking Status: Never smoker second hand exposure: Yes alcohol intake: current alcohol intake frequency: holidays/special occasions only details: not while substance use type: does not use well-balanced diet: daily or most days caffeine: Yes Type: coffee Number of servings: 1 eating out: rarely or never during the past year weight has: remained stable what type of physical activity do you participate in: other details: Pelaton frequency: 3-4 times per week duration: 30-45 minutes/day juan alberto/lutheran: Druze seatbelt use: always do you feel safe at home: Yes additional social history: - Itz History 2 Elective abortions Hx Para 1 Spontaneous abortions Hx # Term Pregnancies Ectopic pregnancies Hx # Pregnancies Multiple births # of living children 1 Past Pregnancies Del. Date Name GA/Weeks Outcome Route Bth Weight Gen Labor Lgth Anesthesia Del Locatn Provider FOB 02/05/22 Michael 41 live - full term 8#3oz Female epidural [facility] audra Mobley Delivery Date: 02/05/22 Last Updated by: Ruthie Costello see problem list for complications, and 41 IOL postdates sm girl michael atony HPI 34wk ob Details: MARTIN CASTELLANOS is a 29 year old who presents for routine OB visit. OB Visit ANJEL Calculator Estimated Delivery Date Method Current WG Current Estimate 04/29/25 LMP (Certain) 34w 5d Expected Delivery Route/Plan Labor Preferences- CB/BF classes: no labor support person: Itz labor intervention preferences: [] pain management options preferred: epidural cut cord/dad catch: yes : yes PP control planned: [] discussed possible routes of delivery and associated risks: [] special requests: [] Specific Issue/Plans Covid status: [] Flu vaccine: declines Tdap vaccine: given Rhogam: NA LARC form signed: declined movement and labor precautions reviewed. Problem list reviewed and updated with the most current plan of care details and appropriate orders placed. Relevant counseling for the gestational age provided. Continue routine care and follow up unless otherwise noted in visit notes/problem list details Initial Weight: Not Recorded Date -???-???-???-???-???-? ??-???-???-???-???-??? -???- EGA Weight BP Urine Prot -???-???-???-???-???-? ??-???-???-???-???-??? -???- Glucose FHR FuHt Pres Dilation -???-???-???-???-???-? ??-???-???-???-???-??? -???- Effaced St Visit Note 09/29/24 -???-???-???-???-???-? ??-???-???-???-???-??? -???- 9w 5d 171 lb 4 oz 129/78 -???-???-???-???-???-? ??-???-???-???-???-??? -???- (more content not included)... Normal [facility] Laboratory - Chemistry and C hemistry - challengeOrdered By: Rose Man on 03-09-2025 Glucose Ql (U) Negative [facility] Laboratory - UrinalysisOrder ed By: Rose Man on 03-09-2025 Protein Ql (U) Negative [facility] Interactive Developer Office Visit Reporton 03-09-2025 Interactive Developer Office Visit Report [facility] [address], [address] [place] [address] OFFICE VISIT Date of Service: 03/09/25 MR#: [id number] Acct: [id number] Name: MARTIN CASTELLANOS Rep #: [id number] : 1995 Provider: Dr. Rose Wolfe DO Age/Sex: 29/F Location: [facility] [place] Status: Signed Intake Vital Signs 12/31/24 08:38 02/25/25 09:45 03/09/25 09:27 Height 5 ft 4 in 5 ft 4 in 5 ft 4 in Weight: 203 lb 6 oz BMI 34.9 BP 119/79 Intake Visit Reasons: 32 WK OB Chief Complaint: 32wk OB Automotive Vehicle Inspector Required: No Is patient in pain?: No Allergies Penicillins Allergy (Intermediate, Verified 03/09/25 09:25) Hives Medications ???Medication ???Instructions ???Recorded ???Confirmed ???Type multivitamin no.47-iron fum 27 1 cap PO Check with primary doctor 06/14/21 03/09/25 History mg-folate no.1 1 mg-dha 300 mg capsule (PNV-DHA) cholecalciferol (vitamin D3) 125 125 mcg PO QDAY 04/28/24 03/09/25 History mcg (5,000 unit) capsule magnesium gluconate 30 mg tablet 30 mg PO QDAY 04/28/24 03/09/25 Hi story sertraline 50 mg tablet (Zoloft) 50 mg PO DAILY #90 tabs 04/28/24 0 03/09/25 Rx cetirizine 10 mg tablet (Zyrtec) 10 mg PO QDAY PRN 09/19/24 5 History Last Menstrual Period: 07/23/24 : No Have you fallen in the past year?: No PFSH PFSH Medical History 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 Vaginal delivery COVID-19 vaccine series completed Surgical History H/O wisdom tooth extraction Family History Mother Hypertension Grandmother Breast cancer Paternal grt Grandmother Grandmother Hypertension Breast cancer, Onset Age: 60 Paternal Social History adopted: No household members: spouse housing: house number of children: 1 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al status: employed 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 pets and animals: Yes pets and animals: dog(s) history of recent travel: No sexually active: Yes Smoking Status: Never smoker second hand exposure: Yes alcohol intake: current alcohol intake frequency: holidays/special occasions only details: not while substance use type: does not use well-balanced diet: daily or most days caffeine: Yes Type: coffee Number of servings: 1 eating out: rarely or never during the past year weight has: remained stable what type of physical activity do you participate in: other details: Urvashi frequency: 3-4 times per week duration: 30-45 minutes/day juan alberto/lutheran: Druze seatbelt use: always do you feel safe at home: Yes additional social history: - Itz History 2 Elective abortions Hx Para 1 Spontaneous abortions Hx # Term Pregnancies Ectopic pregnancies Hx # Pregnancies Multiple births # of living children 1 Past Pregnancies Del. Date Name GA/Weeks Outcome Route Bth Weight Gen Labor Lgth Anesthesia Del Locatn Provider FOB 02/05/22 Michael 41 live - full term 8#3oz Female epidural [facility] audra Mobley Delivery Date: 02/05/22 Last Updated by: Ruthie Costello see problem list for complications, and 41 IOL postdates sm girl michael atony HPI 32 WK OB Details: MARTIN CASTELLANOS is a 29 year old who presents for routine OB visit. OB Visit ANJEL Calculator Estimated Delivery Date Method Current WG Current Estimate 04/29/25 LMP (Certain) 32w 5d Expected Delivery Route/Plan Labor Preferences- CB/BF classes: [] labor support person: [] labor intervention preferences: [] pain management options preferred: [] cut cord/dad catch: [] : [] PP control planned: [] discussed possible routes of delivery and associated risks: [] special requests: [] Specific Issue/Plans Covid status: [] Flu vaccine: [] Tdap vaccine: given Rhogam: [] LARC form signed: declined movement and labor precautions reviewed. Problem list reviewed and updated with the most current plan of care details and appropriate orders placed. Relevant counseling for the gestational age provided. Continue routine care and follow up unless otherwise noted in visit notes/problem list details Initial Weight: Not Recorded Date -???-???-???-???-???-? ??-???-???-???-???-??? -???- EGA Weight BP Urine Prot -???-???-???-???-???-? ??-???-???-???-???-??? -???- Glucose FHR FuHt Pres Dilation -???-???-???-???-???-? ??-???-???-???-???-??? -???- Effaced St Visit Note 09/29/24 -???-???-???-???-???-? ??-???-???-???-???-??? -???- 9w 5d 171 lb 4 oz 129/78 -???-???-???-???-???-? ??-???-???-???-???-??? -???- 165 (more content not included)... Normal [facility] Laboratory - Chemistry and C hemistry - challengeOrdered By: Dorothy Lee on 02-25-2025 Glucose Ql (U) Negative [facility] Laboratory - UrinalysisOrder ed By: Dorothy Lee on 02-25-2025 Protein Ql (U) Negative [facility] Interactive Developer Office Visit Reporton 02-25-2025 Interactive Developer Office Visit Report [facility]'s [address], [address] [place] [address] OFFICE VISIT Date of Service: 02/25/25 MR#: [id number] Acct: [id number] Name: MARTIN CASTELLANOS Rep #: [id number] : 1995 Provider: Dr. Dorothy fields MD Age/Sex: 29/F Location: [facility] [place] Status: Signed Intake Vital Signs 12/31/24 08:38 02/11/25 09:41 02/25/25 09:45 Height 5 ft 4 in 5 ft 4 in 5 ft 4 in Weight: 201 lb 4 oz BMI 34.5 BP 131/82 H Intake Visit Reasons: 30 WK OB Automotive Vehicle Inspector Required: No Is patient in pain?: No Allergies Penicillins Allergy (Intermediate, Verified 02/25/25 09:46) Hives Medications ???Medication ???Instructions ???Recorded ???Confirmed ???Type multivitamin no.47-iron fum 27 1 cap PO Check with primary doctor 06/14/21 02/25/25 History mg-folate no.1 1 mg-dha 300 mg capsule (PNV-DHA) cholecalciferol (vitamin D3) 125 125 mcg PO QDAY 04/28/24 02/25/25 History mcg (5,000 unit) capsule magnesium gluconate 30 mg tablet 30 mg PO QDAY 04/28/24 02/25/25 Hi story sertraline 50 mg tablet (Zoloft) 50 mg PO DAILY #90 tabs 04/28/24 0 02/25/25 Rx cetirizine 10 mg tablet (Zyrtec) 10 mg PO QDAY PRN 09/19/24 5 History Last Menstrual Period: 07/23/24 Zika: Zika virus screening: Negative : No PFSH PFSH Medical History 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 Vaginal delivery COVID-19 vaccine series completed Surgical History H/O wisdom tooth extraction Family History Mother Hypertension Grandmother Breast cancer Paternal grt Grandmother Grandmother Hypertension Breast cancer, Onset Age: 60 Paternal Social History adopted: No household members: spouse housing: house number of children: 1 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al status: employed 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 pets and animals: Yes pets and animals: dog(s) history of recent travel: No sexually active: Yes Smoking Status: Never smoker second hand exposure: Yes alcohol intake: current alcohol intake frequency: holidays/special occasions only details: not while substance use type: does not use well-balanced diet: daily or most days caffeine: Yes Type: coffee Number of servings: 1 eating out: rarely or never during the past year weight has: remained stable what type of physical activity do you participate in: other details: Pelaton frequency: 3-4 times per week duration: 30-45 minutes/day juan alberto/lutheran: Druze seatbelt use: always do you feel safe at home: Yes additional social history: - Itz History 2 Elective abortions Hx Para 1 Spontaneous abortions Hx # Term Pregnancies Ectopic pregnancies Hx # Pregnancies Multiple births # of living children 1 Past Pregnancies Del. Date Name GA/Weeks Outcome Route Bth Weight Gen Labor Lgth Anesthesia Del Locatn Provider FOB 02/05/22 Michael 41 live - full term 8#3oz Female epidural [facility] audra Mobley Delivery Date: 02/05/22 Last Updated by: Ruthie Costello see problem list for complications, and 41 IOL postdates sm girl michael atony HPI 30 WK OB Details: MARTIN CASTELLANOS is a 29 year old who presents for routine OB visit. OB Visit ANJEL Calculator Estimated Delivery Date Method Current WG Current Estimate 04/29/25 LMP (Certain) 31w 0d Expected Delivery Route/Plan Labor Preferences- CB/BF classes: [] labor support person: [] labor intervention preferences: [] pain management options preferred: [] cut cord/dad catch: [] : [] PP control planned: [] discussed possible routes of delivery and associated risks: [] special requests: [] Specific Issue/Plans Covid status: [] Flu vaccine: [] Tdap vaccine: given Rhogam: [] LARC form signed: declined movement and labor precautions reviewed. Problem list reviewed and updated with the most current plan of care details and appropriate orders placed. Relevant counseling for the gestational age provided. Continue routine care and follow up unless otherwise noted in visit notes/problem list details Initial Weight: Not Recorded Date -???-???-???-???-???-? ??-???-???-???-???-??? -???- EGA Weight BP Urine Prot -???-???-???-???-???-? ??-???-???-???-???-??? -???- Glucose FHR FuHt Pres Dilation -???-???-???-???-???-? ??-???-???-???-???-??? -???- Effaced St Visit Note 09/29/24 -???-???-???-???-???-? ??-???-???-???-???-??? -???- 9w 5d 171 lb 4 oz 129/78 -???-???-???-???-???-? ??-???-???-???-???-??? -???- 165 -???-???-???- (more content not included)... Normal [facility] Laboratory - Chemistry and C hemistry - challengeOrdered By: Rose Man on 02-11-2025 Glucose Ql (U) Negative [facility] Laboratory - UrinalysisOrder ed By: Rose Man on 02-11-2025 Protein Ql (U) Negative [facility] Interactive Developer Office Visit Reporton 02-11-2025 Interactive Developer Office Visit Report [facility]'s [address], [address] [place] [address] OFFICE VISIT Date of Service: 02/11/25 MR#: [id number] Acct: [id number] Name: MARTIN CASTELLANOS Rep #: [id number] : 1995 Provider: Dr. Rose Wolfe DO Age/Sex: 29/F Location: [facility] [place] Status: Signed Intake Vital Signs 12/01/24 10:16 01/26/25 09:18 02/11/25 09:39 02/11/25 09:41 Height 5 ft 4 in 5 ft 4 in 5 ft 4 in 5 ft 4 in Weight: 200 lb 2 oz BMI 34.3 BP 127/80 H Intake Visit Reasons: 28 wk ob Automotive Vehicle Inspector Required: No Is patient in pain?: No Allergies Penicillins Allergy (Intermediate, Verified 02/11/25 09:39) Hives Medications ???Medication ???Instructions ???Recorded ???Confirmed ???Type multivitamin no.47-iron fum 27 1 cap PO Check with primary doctor 06/14/21 02/11/25 History mg-folate no.1 1 mg-dha 300 mg capsule (PNV-DHA) cholecalciferol (vitamin D3) 125 125 mcg PO QDAY 04/28/24 02/11/25 History mcg (5,000 unit) capsule magnesium gluconate 30 mg tablet 30 mg PO QDAY 04/28/24 02/11/25 Hi story sertraline 50 mg tablet (Zoloft) 50 mg PO DAILY #90 tabs 04/28/24 0 02/11/25 Rx cetirizine 10 mg tablet (Zyrtec) 10 mg PO QDAY PRN 09/19/24 5 History Last Menstrual Period: 07/23/24 Zika: Zika virus screening: Negative : No PFSH PFSH Medical History 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 Vaginal delivery COVID-19 vaccine series completed Surgical History H/O wisdom tooth extraction Family History Mother Hypertension Grandmother Breast cancer Paternal grt Grandmother Grandmother Hypertension Breast cancer, Onset Age: 60 Paternal Social History adopted: No household members: spouse housing: house number of children: 1 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al status: employed 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 pets and animals: Yes pets and animals: dog(s) history of recent travel: No sexually active: Yes Smoking Status: Never smoker second hand exposure: Yes alcohol intake: current alcohol intake frequency: holidays/special occasions only details: not while substance use type: does not use well-balanced diet: daily or most days caffeine: Yes Type: coffee Number of servings: 1 eating out: rarely or never during the past year weight has: remained stable what type of physical activity do you participate in: other details: Pelaton frequency: 3-4 times per week duration: 30-45 minutes/day juan alberto/lutheran: Druze seatbelt use: always do you feel safe at home: Yes additional social history: - Itz History 2 Elective abortions Hx Para 1 Spontaneous abortions Hx # Term Pregnancies Ectopic pregnancies Hx # Pregnancies Multiple births # of living children 1 Past Pregnancies Del. Date Name GA/Weeks Outcome Route Bth Weight Gen Labor Lgth Anesthesia Del Locatn Provider FOB 02/05/22 Michael 41 live - full term 8#3oz Female epidural [facility] audra Mobley Delivery Date: 02/05/22 Last Updated by: Ruthie Costello see problem list for complications, and 41 IOL postdates sm girl michael atony HPI 28 wk ob Details: MARTIN CASTELLANOS is a 29 year old who presents for routine OB visit. OB Visit ANJEL Calculator Estimated Delivery Date Method Current WG Current Estimate 04/29/25 LMP (Certain) 29w 0d Expected Delivery Route/Plan Labor Preferences- CB/BF classes: [] labor support person: [] labor intervention preferences: [] pain management options preferred: [] cut cord/dad catch: [] : [] PP control planned: [] discussed possible routes of delivery and associated risks: [] special requests: [] Specific Issue/Plans Covid status: [] Flu vaccine: [] Tdap vaccine: [] Rhogam: [] LARC form signed: [] Problem list reviewed and updated with the most current plan of care details and appropriate orders placed. Relevant counseling for the gestational age provided. Continue routine care and follow up unless otherwise noted in visit notes/problem list details Initial Weight: Not Recorded Date -???-???-???-???-???-? ??-???-???-???-???-??? -???- EGA Weight BP Urine Prot -???-???-???-???-???-? ??-???-???-???-???-??? -???- Glucose FHR FuHt Pres Dilation -???-???-???-???-???-? ??-???-???-???-???-??? -???- Effaced St Visit Note 09/29/24 -???-???-???-???-???-? ??-???-???-???-???-??? -???- 9w 5d 171 lb 4 oz 129/78 -???-???-???-???-???-? ??-???-???-???-???-??? -???- 165 -???-???-???-???-???-? ??-???-???-? (more content not included)... Normal [facility] Absolute lymphocyte countOrd ered By: Rose Man on 01-26-2025 Lymphocytes Auto (Unsp spec) [#/Vol] 1.16 10*3/uL 0.83-4.51 [facility] Absolute neutrophil countOrd ered By: Rose Man on 01-26-2025 Neutrophils (Bld) [#/Vol] 4.8 10*3/uL 2.0-7.7 [facility] Automated lymphocyte count a s percentage of total leukocytesOrdered By: Rose Man on 01-26-2025 Lymphocytes/100 WBC Auto (Unsp spec) 16.6 % Low 19-41 [facility] Basophil percentageOrdered B y: Rose Man on 01-26-2025 Basophils/100 WBC (Bld) 0.6 % 0-1 [facility] CBC W/Diff, Automatedon 01-09 Absolute Lymph 1.16 X10 3/uL Normal 0.83-4.51 [facility] Comment on above: Performed By: #### L 100.0100, L501.0250, L509.8002, L3890.6006 ####[facility] [address] [place], [address] Absolute Neut 4.8 X10 3/uL Normal 2.0-7.7 [facility] Comment on above: Performed By: #### L 100.0100, L501.0250, L509.8002, L3890.6006 ####[facility] [address] [place], [address] Basophils/100 WBC (Bld) 0.6 % Normal 0-1 [facility] Comment on above: Performed By: #### L 100.0100, L501.0250, L509.8002, L3890.6006 ####[facility] [address] [place], [address] Eosinophils/100 WBC (Bld) 2.1 % Normal 0-5 [facility] Comment on above: Performed By: #### L 100.0100, L501.0250, L509.8002, L3890.6006 ####[facility] [address] [place], [address] Erythrocyte distribution width (RBC) [Ratio] 15.3 % High 11.6-14.6 [facility] Comment on above: Performed By: #### L 100.0100, L501.0250, L509.8002, L3890.6006 ####[facility] [address] [place], [address] Hematocrit (Bld) [Volume fraction] 35.4 % Low 37-47 [facility] Comment on above: Performed By: #### L 100.0100, L501.0250, L509.8002, L3890.6006 ####[facility] [address] [place], [address] Hemoglobin (Bld) [Mass/Vol] 11.8 g/dL Low 12.0-15.0 [facility] Comment on above: Performed By: #### L 100.0100, L501.0250, L509.8002, L3890.6006 ####[facility] [address] [place], [address] IG% 4.600 High 0.0-0.9 [facility] Comment on above: Result Comment: IG% - Immature Granulocytes (promyelocytes, myelocytes and metamyelocytes) > 1% indicates that a LEFT SHIFT is Present. Performed By: #### L 100.0100, L501.0250, L509.8002, L3890.6006 ####[facility] [address] [place], [address] Lymphocytes/100 WBC (Bld) 16.6 % Low 19-41 [facility] Comment on above: Performed By: #### L 100.0100, L501.0250, L509.8002, L3890.6006 ####[facility] [address] [place], [address] MCH (RBC) [Entitic mass] 31.3 pg Normal 27.0-32.0 [facility] Comment on above: Performed By: #### L 100.0100, L501.0250, L509.8002, L3890.6006 ####[facility] [address] [place], [address] MCHC (RBC) [Mass/Vol] 33.3 g/dL Normal 32-36 [facility] Comment on above: Performed By: #### L 100.0100, L501.0250, L509.8002, L3890.6006 ####[facility] [address] [place], [address] MCV (RBC) [Entitic vol] 93.9 fL Normal 81-99 [facility] Comment on above: Performed By: #### L 100.0100, L501.0250, L509.8002, L3890.6006 ####[facility] [address] [place], [address] Monocytes/100 WBC (Bld) 7.2 % Normal 0-10 [facility] Comment on above: Performed By: #### L 100.0100, L501.0250, L509.8002, L3890.6006 ####[facility] [address] [place], [address] Neutrophils/100 WBC (Bld) 68.9 % Normal 47-70 [facility] Comment on above: Performed By: #### L 100.0100, L501.0250, L509.8002, L3890.6006 ####[facility] [address] [place], [address] Nucleated RBC (Bld) [#/Vol] 0 10*3/uL Normal 0-5 [facility] Comment on above: Performed By: #### L 100.0100, L501.0250, L509.8002, L3890.6006 ####[facility] [address] [place], [address] Platelet mean volume (Bld) [Entitic vol] 10.5 fL Normal 6.2-12.0 [facility] Comment on above: Performed By: #### L 100.0100, L501.0250, L509.8002, L3890.6006 ####[facility] [address] [place], [address] Platelets (Bld) [#/Vol] 182 10*3/uL Normal 150-450 [facility] Comment on above: Performed By: #### L 100.0100, L501.0250, L509.8002, L3890.6006 ####[facility] [address] [place], [address] RBC (Bld) [#/Vol] 3.77 10*6/uL Low 4.2-5.[address] [facility] Comment on above: Performed By: #### L 100.0100, L501.0250, L509.8002, L3890.6006 ####[facility] [address] [place], [address] RDW SD 53.1 fl High 35.1-43.9 [facility] Comment on above: Performed By: #### L 100.0100, L501.0250, L509.8002, L3890.6006 ####[facility] [address] [place], [address] WBC (Bld) [#/Vol] 7.0 10*3/uL Normal 4.4-11.0 [facility] Comment on above: Performed By: #### L 100.0100, L501.0250, L509.8002, L3890.6006 ####[facility] [address] [place], [address] Eosinophil percentageOrdered By: Rose Man on 01-26-2025 Eosinophils/100 WBC (Bld) 2.1 % 0-5 [facility] Erythrocyte distribution wid th ratioOrdered By: Rose Man on 01-26-2025 Erythrocyte distribution width (RBC) [Ratio] 15.3 % High 11.6-14.6 [facility] Erythrocyte distribution wid th standard deviationOrdered By: Rose Man on 01-26-2025 Erythrocyte distribution width (RBC) [Ratio] 53.1 fl High 35.1-43.9 [facility] Glucose Challenge Gest 1H 50 aleyda 01-26-2025 GLU GEST 50g 1H 112 mg/dL Normal 70-140 [facility] Comment on above: Performed By: #### L 100.0100, L501.0250, L509.8002, L3890.6006 ####[facility] [address] [place], [place], [id number] Glucose measurement at 2 larry rs post-dose gestational glucose tolerance testOrdered By: Rose Man on 01-26-2025 Glucose [Mass/Vol] 112 mg/dL 70-140 [facility] HIVon 01-26-2025 HIV Non-Reactive Normal Nonreactive [facility] Comment on above: Result Comment: Non- Reactive Reactive Repeatedly reactive samples must be confirmed according to CDC recommended confirmatory algorithms. The subresults for either HIVAG or AHIV can be used as an aid in the selection of the confirmation algorithm for reactive samples. Send out specimens with Reactive results to [facility] for confirmation. Order the HIV antibody detection and differentiation: [id number] Performed By: #### L 100.0100, L501.0250, L509.8002, L3890.6006 ####[facility] [address] [place], [address] Hematocrit Auto (Bld) [Volum e fraction]Ordered By: Rose Man on 01-26-2025 Hematocrit (Bld) [Volume fraction] 35.4 % Low 37-47 [facility] Hemoglobin measurementOrdere d By: Rose Man on 01-26-2025 Hemoglobin (Bld) [Mass/Vol] 11.8 g/dL Low 12.0-15.0 [facility] Immature granulocytes/100 WB C Auto (Bld)Ordered By: Rose Man on 01-26-2025 Immature granulocytes/100 WBC (Bld) 4.600 % High 0.0-0.9 [facility] Comment on above: IG% - Immature Granu locytes (promyelocytes, myelocytes and metamyelocytes) > 1% indicates that a LEFT SHIFT is Present. Laboratory - Chemistry and C hemistry - challengeOrdered By: Dorothy Lee on 01-26-2025 Glucose Ql (U) Negative [facility] Laboratory - UrinalysisOrder ed By: Dorothy Lee on 01-26-2025 Protein Ql (U) Negative [facility] MCV (mean corpuscular volume ) determinationOrdered By: Rose Man on 01-26-2025 MCV (RBC) [Entitic vol] 93.9 fL 81-99 [facility] Mean corpuscular hemoglobin (MCH) determinationOrdered By: Rose Man on 01-26-2025 MCH (RBC) [Entitic mass] 31.3 pg 27.0-32.0 [facility] Mean corpuscular hemoglobin concentration (MCHC) determinationOrdered By: Rose Man on 01-26-2025 MCHC (RBC) [Mass/Vol] 33.3 g/dL 32-36 [facility] Mean platelet volume determi nationOrdered By: Rose Man on 01-26-2025 Platelet mean volume (Bld) [Entitic vol] 10.5 fL 6.2-12.0 [facility] [facility] Monocyte percentageOrdered B y: Rose Man on 01-26-2025 Monocytes/100 WBC (Bld) 7.2 % 0-10 [facility] Neutrophil percentageOrdered By: Rose Man on 01-26-2025 Neutrophils/100 WBC (Bld) 68.9 % 47-70 [facility] No Panel InformationOrdered By: Rose Man on 01-26-2025 HIV (1&2) Antibody Non-Reactive Nonreactive [facility] Comment on above: Non-ReactiveReactive Repeatedly reactive samples must be confirmed according to CDC recommended confirmatory algorithms. The subresults for either HIVAG or AHIV can be used as an aid in the selection of the confirmation algorithm for reactive samples.Send out specimens with Reactive results to [facility] for confirmation.Order the HIV antibody detection and differentiation: #[id number] Nucleated red blood cell per centageOrdered By: Rose Man on 01-26-2025 Nucleated RBC/100 WBC (Bld) [Ratio] 0 % 0-5 [facility] Interactive Developer Office Visit Reporton 01-26-2025 Interactive Developer Office Visit Report [facility] [address], [address] [place] [address] OFFICE VISIT Date of Service: 01/26/25 MR#: [id number] Acct: [id number] Name: MARTIN CASTELLANOS Rep #: [id number] : 1995 Provider: Dr. Dorothy fields MD Age/Sex: 29/F Location: [facility] [place] Status: Signed Intake Vital Signs 12/01/24 10:16 12/31/24 08:38 01/26/25 09:18 Height 5 ft 4 in 5 ft 4 in 5 ft 4 in Weight: 197 lb 2 oz BMI 33.8 BP 131/76 H Intake Visit Reasons: 26 wk ob/glucose Automotive Vehicle Inspector Required: No Is patient in pain?: No Allergies Penicillins Allergy (Intermediate, Verified 01/26/25 09:13) Hives Medications ???Medication ???Instructions ???Recorded ???Confirmed ???Type multivitamin no.47-iron fum 27 1 cap PO Check with primary doctor 06/14/21 01/26/25 History mg-folate no.1 1 mg-dha 300 mg capsule (PNV-DHA) cholecalciferol (vitamin D3) 125 125 mcg PO QDAY 04/28/24 01/26/25 History mcg (5,000 unit) capsule magnesium gluconate 30 mg tablet 30 mg PO QDAY 04/28/24 01/26/25 Hi story sertraline 50 mg tablet (Zoloft) 50 mg PO DAILY #90 tabs 04/28/24 0 01/26/25 Rx cetirizine 10 mg tablet (Zyrtec) 10 mg PO QDAY PRN 09/19/24 5 History Last Menstrual Period: 07/23/24 Zika: Zika virus screening: Negative : No PFSH PFSH Medical History 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 Vaginal delivery COVID-19 vaccine series completed Surgical History H/O wisdom tooth extraction Family History Mother Hypertension Grandmother Breast cancer Paternal grt Grandmother Grandmother Hypertension Breast cancer, Onset Age: 60 Paternal Social History adopted: No household members: spouse housing: house number of children: 1 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al status: employed 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 pets and animals: Yes pets and animals: dog(s) history of recent travel: No sexually active: Yes Smoking Status: Never smoker second hand exposure: Yes alcohol intake: current alcohol intake frequency: holidays/special occasions only details: not while substance use type: does not use well-balanced diet: daily or most days caffeine: Yes Type: coffee Number of servings: 1 eating out: rarely or never during the past year weight has: remained stable what type of physical activity do you participate in: other details: Pelaton frequency: 3-4 times per week duration: 30-45 minutes/day juan alberto/lutheran: Druze seatbelt use: always do you feel safe at home: Yes additional social history: - Itz History 2 Elective abortions Hx Para 1 Spontaneous abortions Hx # Term Pregnancies Ectopic pregnancies Hx # Pregnancies Multiple births # of living children 1 Past Pregnancies Del. Date Name GA/Weeks Outcome Route Bth Weight Infant Gen Labor Lgth Anesthesia Del Locatn Provider FOB 02/05/22 Michael 41 live - full term 8#3oz Female epidural [facility] audra Jesus Mob[place] Delivery Date: 02/05/22 Last Updated by: Ruthie Costello see problem list for complications, and 41 IOL postdates sm girl michael atony HPI 26 wk ob/glucose Details: MARTIN CASTELLANOS is a 29 year old who presents for routine OB visit. OB Visit ANJEL Calculator Estimated Delivery Date Method Current WG Current Estimate 04/29/25 LMP (Certain) 26w 5d Expected Delivery Route/Plan Labor Preferences- CB/BF classes: [] labor support person: [] labor intervention preferences: [] pain management options preferred: [] cut cord/dad catch: [] : [] PP control planned: [] discussed possible routes of delivery and associated risks: [] special requests: [] Specific Issue/Plans Covid status: [] Flu vaccine: [] Tdap vaccine: [] Rhogam: [] LARC form signed: [] Problem list reviewed and updated with the most current plan of care details and appropriate orders placed. Relevant counseling for the gestational age provided. Continue routine care and follow up unless otherwise noted in visit notes/problem list details Initial Weight: Not Recorded Date -???-???-???-???-???-? ??-???-???-???-???-??? -???- EGA Weight BP Urine Prot -???-???-???-???-???-? ??-???-???-???-???-??? -???- Glucose FHR FuHt Pres Dilation -???-???-???-???-???-? ??-???-???-???-???-??? -???- Effaced St Visit Note 09/29/24 -???-???-???-???-???-? ??-???-???-???-???-??? -???- 9w 5d 171 lb 4 oz 129/78 -???-???-???-???-???-? ??-???-???-???-???-??? -???- 165 -???-???-???-???-???-? ??-???-???-???-???-??? -???- SM- (more content not included)... Normal [facility] Platelet countOrdered By: Reji Man on 01-26-2025 Platelets (Bld) [#/Vol] 182 10*3/uL 150-450 [facility] RBC Auto (Bld) [#/Vol]Ordere d By: Rose Man on 01-26-2025 RBC (Bld) [#/Vol] 3.77 10*6/uL Low 4.2-5.[address] [facility] Syphilis Antibodieson 2024 Syphilis Abs Non-Reactive Normal Nonreactive [facility] Comment on above: Performed By: #### L 100.0100, L501.0250, L509.8002, L3890.6006 ####[facility] [address] [place], [place], [id number] White blood cell (WBC) count Ordered By: Rose Man on 01-26-2025 WBC (Bld) [#/Vol] 7.0 10*3/uL 4.4-11.0 [facility] - Chemistry and C hemistry - challengeOrdered By: Rose Man on 12-31-2024 Glucose Ql (U) Negative [facility] - UrinalysisOrder ed By: Rose Man on 12-31-2024 Protein Ql (U) Negative [facility] Interactive Developer Office Visit Reporton 12-31-2024 Interactive Developer Office Visit Report [address], [address] [place] [address] OFFICE VISIT Date of Service: 12/31/24 MR#: [id number] Acct: [id number] Name: MARTIN CASTELLANOS Rep #: [id number] : 1995 Provider: Dr. Rose Wolfe DO Age/Sex: 29/F Location: [facility] Status: Signed Intake Vital Signs 11/05/24 08:44 12/01/24 10:16 12/31/24 08:37 12/31/24 08:38 Height 5 ft 4 in 5 ft 4 in 5 ft 4 in 5 ft 4 in Weight: 192 lb 8 oz BMI 33.0 BP 108/74 Intake Visit Reasons: 22 wk ob Automotive Vehicle Inspector Required: No Is patient in pain?: No Allergies Penicillins Allergy (Intermediate, Verified 12/31/24 08:37) Hives Medications ???Medication ???Instructions ???Recorded ???Confirmed ???Type multivitamin no.47-iron fum 27 1 cap PO Check with primary doctor 06/14/21 12/31/24 History mg-folate no.1 1 mg-dha 300 mg capsule (PNV-DHA) cholecalciferol (vitamin D3) 125 125 mcg PO QDAY 04/28/24 12/31/24 History mcg (5,000 unit) capsule magnesium gluconate 30 mg tablet 30 mg PO QDAY 04/28/24 12/31/24 Hi story sertraline 50 mg tablet (Zoloft) 50 mg PO DAILY #90 tabs 04/28/24 0 12/31/24 Rx cetirizine 10 mg tablet (Zyrtec) 10 mg PO QDAY PRN 09/19/24 5 History Last Menstrual Period: 07/23/24 Zika: Zika virus screening: Negative : No PFSH PFSH Medical History 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 Vaginal delivery COVID-19 vaccine series completed Surgical History H/O wisdom tooth extraction Family History Mother Hypertension Grandmother Breast cancer Paternal grt Grandmother Grandmother Hypertension Breast cancer, Onset Age: 60 Paternal Social History adopted: No household members: spouse housing: house number of children: 1 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al status: employed 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 pets and animals: Yes pets and animals: dog(s) history of recent travel: No sexually active: Yes Smoking Status: Never smoker second hand exposure: Yes alcohol intake: current alcohol intake frequency: holidays/special occasions only details: not while substance use type: does not use well-balanced diet: daily or most days caffeine: Yes Type: coffee Number of servings: 1 eating out: rarely or never during the past year weight has: remained stable what type of physical activity do you participate in: other details: Pelaton frequency: 3-4 times per week duration: 30-45 minutes/day juan alberto/lutheran: Druze seatbelt use: always do you feel safe at home: Yes additional social history: - Itz History 2 Elective abortions Hx Para 1 Spontaneous abortions Hx # Term Pregnancies Ectopic pregnancies Hx # Pregnancies Multiple births # of living children 1 Past Pregnancies Del. Date Name GA/Weeks Outcome Route Bth Weight Infant Gen Labor Lgth Anesthesia Del Locatn Provider FOB 02/05/22 Michael 41 live - full term 8#3oz Female epidural [facility] audra Jesus [place] Delivery Date: 02/05/22 Last Updated by: Ruthie Costello see problem list for complications, and 41 IOL postdates sm girl michael atony HPI 22 wk ob Details: MARTIN CASTELLANOS is a 29 year old who presents for routine OB visit. OB Visit ANJEL Calculator Estimated Delivery Date Method Current WG Current Estimate 04/29/25 LMP (Certain) 23w 0d Expected Delivery Route/Plan Labor Preferences- CB/BF classes: [] labor support person: [] labor intervention preferences: [] pain management options preferred: [] cut cord/dad catch: [] : [] PP control planned: [] discussed possible routes of delivery and associated risks: [] special requests: [] Specific Issue/Plans Covid status: [] Flu vaccine: [] Tdap vaccine: [] Rhogam: [] LARC form signed: [] Problem list reviewed and updated with the most current plan of care details and appropriate orders placed. Relevant counseling for the gestational age provided. Continue routine care and follow up unless otherwise noted in visit notes/problem list details Initial Weight: Not Recorded Date -???-???-???-???-???-? ??-???-???-???-???-??? -???- EGA Weight BP Urine Prot -???-???-???-???-???-? ??-???-???-???-???-??? -???- Glucose FHR FuHt Pres Dilation -???-???-???-???-???-? ??-???-???-???-???-??? -???- Effaced St Visit Note 09/29/24 -???-???-???-???-???-? ??-???-???-???-???-??? -???- 9w 5d 171 lb 4 oz 129/78 -???-???-???-???-???-? ??-???-???-???-???-??? -???- 165 -???-???-???-???-???-? ??-???-???-??? (more content not included)... Normal [facility] - Chemistry and C hemistry - challengeOrdered By: Dorothy Lee on 12-01-2024 Glucose Ql (U) Negative [facility] - UrinalysisOrder ed By: Dorothy Lee on 12-01-2024 Protein Ql (U) Negative [facility] Interactive Developer Office Visit Reporton 12-01-2024 Interactive Developer Office Visit Report [facility] [address], [address] [place] [address] OFFICE VISIT Date of Service: 12/01/24 MR#: [id number] Acct: [id number] Name: EMANUELMARTIN LUZ Rep #: [id number] : 1995 Provider: Dr. Dorothy fields MD Age/Sex: 29/F Location: [facility] [place] Status: Signed Intake Vital Signs 09/29/24 10:27 11/05/24 08:44 12/01/24 10:16 Height 5 ft 4 in 5 ft 4 in 5 ft 4 in Weight: 181 lb 4 oz BMI 31.1 BP 137/73 H Intake Visit Reasons: 18 wk ob Automotive Vehicle Inspector Required: No Is patient in pain?: No Feel stressed/tense/nervous /anxious/difficulty sleeping: not at all Allergies Penicillins Allergy (Intermediate, Verified 12/01/24 10:17) Hives Medications ???Medication ???Instructions ???Recorded ???Confirmed ???Type multivitamin no.47-iron fum 27 1 cap PO Check with primary doctor 06/14/21 12/01/24 History mg-folate no.1 1 mg-dha 300 mg capsule (PNV-DHA) cholecalciferol (vitamin D3) 125 125 mcg PO QDAY 04/28/24 12/01/24 History mcg (5,000 unit) capsule magnesium gluconate 30 mg tablet 30 mg PO QDAY 04/28/24 12/01/24 Hi story sertraline 50 mg tablet (Zoloft) 50 mg PO DAILY #90 tabs 04/28/24 0 12/01/24 Rx cetirizine 10 mg tablet (Zyrtec) 10 mg PO QDAY PRN 09/19/24 5 History Last Menstrual Period: 07/23/24 Zika: Zika virus screening: Negative : No PFSH PFSH Medical History 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 Vaginal delivery COVID-19 vaccine series completed Surgical History H/O wisdom tooth extraction Family History Mother Hypertension Grandmother Breast cancer Paternal grt Grandmother Grandmother Hypertension Breast cancer, Onset Age: 60 Paternal Social History adopted: No household members: spouse housing: house number of children: 1 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al status: employed 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 pets and animals: Yes pets and animals: dog(s) history of recent travel: No sexually active: Yes Smoking Status: Never smoker second hand exposure: Yes alcohol intake: current alcohol intake frequency: holidays/special occasions only details: not while substance use type: does not use well-balanced diet: daily or most days caffeine: Yes Type: coffee Number of servings: 1 eating out: rarely or never during the past year weight has: remained stable what type of physical activity do you participate in: other details: Pelaton frequency: 3-4 times per week duration: 30-45 minutes/day juan alberto/lutheran: Druze seatbelt use: always do you feel safe at home: Yes additional social history: - Itz History 2 Elective abortions Hx Para 1 Spontaneous abortions Hx # Term Pregnancies Ectopic pregnancies Hx # Pregnancies Multiple births # of living children 1 Past Pregnancies Del. Date Name GA/Weeks Outcome Route Bth Weight Gen Labor Lgth Anesthesia Del Locatn Provider FOB 02/05/22 Michael 41 live - full term 8#3oz Female epidural [facility] audra Jesus Mobley Delivery Date: 02/05/22 Last Updated by: Ruthie Costello see problem list for complications, and 41 IOL postdates sm girl michael atony HPI 18 wk ob Details: MARTIN CASTELLANOS is a 29 year old who presents for routine OB visit. OB Visit ANJEL Calculator Estimated Delivery Date Method Current WG Current Estimate 04/29/25 LMP (Certain) 18w 5d Expected Delivery Route/Plan Labor Preferences- CB/BF classes: [] labor support person: [] labor intervention preferences: [] pain management options preferred: [] cut cord/dad catch: [] : [] PP control planned: [] discussed possible routes of delivery and associated risks: [] special requests: [] Specific Issue/Plans Covid status: [] Flu vaccine: [] Tdap vaccine: [] Rhogam: [] LARC form signed: [] Problem list reviewed and updated with the most current plan of care details and appropriate orders placed. Relevant counseling for the gestational age provided. Continue routine care and follow up unless otherwise noted in visit notes/problem list details Initial Weight: Not Recorded Date -???-???-???-???-???-? ??-???-???-???-???-??? -???- EGA Weight BP Urine Prot -???-???-???-???-???-? ??-???-???-???-???-??? -???- Glucose FHR FuHt Pres Dilation -???-???-???-???-???-? ??-???-???-???-???-??? -???- Effaced St Visit Note 09/29/24 -???-???-???-???-???-? ??-???-???-???-???-??? -???- 9w 5d 171 lb 4 oz 129/78 -???-???-???-???-???-? ??-???-???-???-???-??? -???- 165 - (more content not included)... Normal [facility] Absolute lymphocyte countOrd ered By: Dorothy Nuneskaylynn on 11-05-2024 Lymphocytes Auto (Unsp spec) [#/Vol] 1.48 10*3/uL 0.83-4.51 [facility] Absolute neutrophil countOrd ered By: Dorothy Nuneskaylynn on 11-05-2024 Neutrophils (Bld) [#/Vol] 5.7 10*3/uL 2.0-7.7 [facility] Automated lymphocyte count a s percentage of total leukocytesOrdered By: Dorothy Jesus on 11-05-2024 Lymphocytes/100 WBC Auto (Unsp spec) 18.6 % Low 19-41 [facility] Basophil percentageOrdered B y: Dorothy Nuneskaylynn on 11-05-2024 Basophils/100 WBC (Bld) 0.3 % 0-1 [facility] CBC W/Diff, Automatedon 10-10 Absolute Lymph 1.48 X10 3/uL Normal 0.83-4.51 [facility] Comment on above: Performed By: #### L 100.0100, L3890.6006, L509.8002, BTS, L509.4006, L3890.6301, L3890.6102 ####[facility] [address] [place], [address] Absolute Neut 5.7 X10 3/uL Normal 2.0-7.7 [facility] Comment on above: Performed By: #### L 100.0100, L3890.6006, L509.8002, BTS, L509.4006, L3890.6301, L3890.6102 ####[facility] [address] [place], [address] Basophils/100 WBC (Bld) 0.3 % Normal 0-1 [facility] Comment on above: Performed By: #### L 100.0100, L3890.6006, L509.8002, BTS, L509.4006, L3890.6301, L3890.6102 ####[facility] [address] [place], [address] Eosinophils/100 WBC (Bld) 2.8 % Normal 0-5 [facility] Comment on above: Performed By: #### L 100.0100, L3890.6006, L509.8002, BTS, L509.4006, L3890.6301, L3890.6102 ####[facility] [address] [place], [address] Erythrocyte distribution width (RBC) [Ratio] 14.2 % Normal 11.6-14.6 [facility] Comment on above: Performed By: #### L 100.0100, L3890.6006, L509.8002, BTS, L509.4006, L3890.6301, L3890.6102 ####[facility] [address] [place], [address] Hematocrit (Bld) [Volume fraction] 38.3 % Normal 37-47 [facility] Comment on above: Performed By: #### L 100.0100, L3890.6006, L509.8002, BTS, L509.4006, L3890.6301, L3890.6102 ####[facility] [address] [place], [address] Hemoglobin (Bld) [Mass/Vol] 12.8 g/dL Normal 12.0-15.0 [facility] Comment on above: Performed By: #### L 100.0100, L3890.6006, L509.8002, BTS, L509.4006, L3890.6301, L3890.6102 ####[facility] [address] [place], [address] IG% 1.100 High 0.0-0.9 [facility] Comment on above: Result Comment: IG% - Immature Granulocytes (promyelocytes, myelocytes and metamyelocytes) > 1% indicates that a LEFT SHIFT is Present. Performed By: #### L 100.0100, L3890.6006, L509.8002, BTS, L509.4006, L3890.6301, L3890.6102 ####[facility] [address] [place], [address] Lymphocytes/100 WBC (Bld) 18.6 % Low 19-41 [facility] Comment on above: Performed By: #### L 100.0100, L3890.6006, L509.8002, BTS, L509.4006, L3890.6301, L3890.6102 ####[facility] [address] [place], [address] MCH (RBC) [Entitic mass] 30.3 pg Normal 27.0-32.0 [facility] Comment on above: Performed By: #### L 100.0100, L3890.6006, L509.8002, BTS, L509.4006, L3890.6301, L3890.6102 ####[facility] [address] [place], [address] MCHC (RBC) [Mass/Vol] 33.4 g/dL Normal 32-36 [facility] Comment on above: Performed By: #### L 100.0100, L3890.6006, L509.8002, BTS, L509.4006, L3890.6301, L3890.6102 ####[facility] [address] [place], [address] MCV (RBC) [Entitic vol] 90.8 fL Normal 81-99 [facility] Comment on above: Performed By: #### L 100.0100, L3890.6006, L509.8002, BTS, L509.4006, L3890.6301, L3890.6102 ####[facility] [address] [place], [address] Monocytes/100 WBC (Bld) 5.8 % Normal 0-10 [facility] Comment on above: Performed By: #### L 100.0100, L3890.6006, L509.8002, BTS, L509.4006, L3890.6301, L3890.6102 ####[facility] [address] [place], [address] Neutrophils/100 WBC (Bld) 71.4 % High 47-70 [facility] Comment on above: Performed By: #### L 100.0100, L3890.6006, L509.8002, BTS, L509.4006, L3890.6301, L3890.6102 ####[facility] [address] [place], [address] Nucleated RBC (Bld) [#/Vol] 0 10*3/uL Normal 0-5 [facility] Comment on above: Performed By: #### L 100.0100, L3890.6006, L509.8002, BTS, L509.4006, L3890.6301, L3890.6102 ####[facility] [address] [place], [address] Platelet mean volume (Bld) [Entitic vol] 10.1 fL Normal 6.2-12.0 [facility] Comment on above: Performed By: #### L 100.0100, L3890.6006, L509.8002, BTS, L509.4006, L3890.6301, L3890.6102 ####[facility] [address] [place], [address] Platelets (Bld) [#/Vol] 206 10*3/uL Normal 150-450 [facility] Comment on above: Performed By: #### L 100.0100, L3890.6006, L509.8002, BTS, L509.4006, L3890.6301, L3890.6102 ####[facility] [address] [place], [address] RBC (Bld) [#/Vol] 4.22 10*6/uL Normal 4.2-5.[address] [facility] Comment on above: Performed By: #### L 100.0100, L3890.6006, L509.8002, BTS, L509.4006, L3890.6301, L3890.6102 ####[facility] [address] [place], [address] RDW SD 47.1 fl High 35.1-43.9 [facility] Comment on above: Performed By: #### L 100.0100, L3890.6006, L509.8002, BTS, L509.4006, L3890.6301, L3890.6102 ####[facility] [address] [place], [address] WBC (Bld) [#/Vol] 8.0 10*3/uL Normal 4.4-11.0 [facility] Comment on above: Performed By: #### L 100.0100, L3890.6006, L509.8002, BTS, L509.4006, L3890.6301, L3890.6102 ####[facility] [address] [place], [address] Eosinophil percentageOrdered By: Dorothy Lee on 11-05-2024 Eosinophils/100 WBC (Bld) 2.8 % 0-5 [facility] Erythrocyte distribution wid th ratioOrdered By: Dorothy Lee on 11-05-2024 Erythrocyte distribution width (RBC) [Ratio] 14.2 % 11.6-14.6 [facility] Erythrocyte distribution wid th standard deviationOrdered By: Dorothy Lee on 11-05-2024 Erythrocyte distribution width (RBC) [Ratio] 47.1 fl High 35.1-43.9 [facility] HIVon 11-05-2024 HIV Non-Reactive Normal Nonreactive [facility] Comment on above: Result Comment: Non- Reactive Reactive Repeatedly reactive samples must be confirmed according to CDC recommended confirmatory algorithms. The subresults for either HIVAG or AHIV can be used as an aid in the selection of the confirmation algorithm for reactive samples. Send out specimens with Reactive results to [facility] for confirmation. Order the HIV antibody detection and differentiation: #[id number] Performed By: #### L 100.0100, L3890.6006, L509.8002, BTS, L509.4006, L3890.6301, L3890.6102 ####[facility] [address] [place], [address] Hematocrit Auto (Bld) [Volum e fraction]Ordered By: Dorothy Lee on 11-05-2024 Hematocrit (Bld) [Volume fraction] 38.3 % 37-47 [facility] Hemoglobin measurementOrdere d By: Dorothy Lee on 11-05-2024 Hemoglobin (Bld) [Mass/Vol] 12.8 g/dL 12.0-15.0 [facility] Hepatitis C Antibodyon 11-05 Hepatitis C Ab Non-Reactive Normal Nonreactive [facility] Comment on above: Result Comment: Reac tive: Presumptive evidence of antibodies to HCV. Follow CDC recommendations for supplemental testing. Non-Reactive: Antibodies to HCV were not detected; does not exclude the possibility of exposure to HCV Reactive Results are presumptive evidence of antibodies to HCV. Follow CDC recommendations for supplemental testing. Order confirmation testing: HCV Quant by PCR testing - HCVPCR #[id number] Non Reactive: < 0.8 Equivocal: >/= 0.8 to < 1.0 Reactive: >/= 1.0 The [facility] requires that a reactive/equivocal HCV antibody result be sent out for confirmation. HCV Quant by PCR testing. Performed By: #### L 100.0100, L3890.6006, L509.8002, BTS, L509.4006, L3890.6301, L3890.6102 ####[facility] [id number] [place], [place], [id number] Immature granulocytes/100 WB C Auto (Bld)Ordered By: Dorothy Lee on 11-05-2024 Immature granulocytes/100 WBC (Bld) 1.100 % High 0.0-0.9 [facility] Comment on above: IG% - Immature Granu locytes (promyelocytes, myelocytes and metamyelocytes) > 1% indicates that a LEFT SHIFT is Present. L3890.6102on 11-05-2024 HEP B Surf Ag Non-Reactive Normal Nonreactive [facility] Comment on above: Result Comment: Reac tive: Presumptive evidence of HBV. Repeatedly reactive samples must be confirmed using a neutralization test (Elecsys HBsAg Confirmatory Test) Non-Reactive: HBsAg not detected; does not exclude the possibility of exposure to HBV Performed By: #### L 100.0100, L3890.6006, L509.8002, BTS, L509.4006, L3890.6301, L3890.6102 ####[facility] [id number] [place], [place], [id number] L509.4006on 11-05-2024 Rubella IgG REAC Normal Nonreactive [facility] Comment on above: Result Comment: Anti body Result: Interpretation Non-Reactive: Non-Immune Reactive: Immune The following results were obtained with the Elecsys Rubella IgG assay. Results from assays of other manufacturers cannot be used interchangeably. Performed By: #### L 100.0100, L3890.6006, L509.8002, BTS, L509.4006, L3890.6301, L3890.6102 ####[facility] [id number] [place], [address] Laboratory - Chemistry and C hemistry - challengeOrdered By: Rose Man on 11-05-2024 Glucose Ql (U) Negative [facility] Laboratory - Microbiology an d Antimicrobial susceptibilityOrdered By: Dorothy Lee on 11-05-2024 HBV surface Ag Ql (S) Non-Reactive Nonreactive [facility] Comment on above: Reactive: Presumptiv e evidence of HBV. Repeatedly reactive samples must be confirmed using a neutralization test (Ele[employer]ys HBsAg Confirmatory Test)Non-Reactive: HBsAg not detected; does not exclude the possibility of exposure to HBV Laboratory - UrinalysisOrder ed By: Rose Man on 11-05-2024 Protein Ql (U) Negative [facility] MCV (mean corpuscular volume ) determinationOrdered By: Dorothy Lee on 11-05-2024 MCV (RBC) [Entitic vol] 90.8 fL 81-99 [facility] Mean corpuscular hemoglobin (MCH) determinationOrdered By: Dorothy Lee on 11-05-2024 MCH (RBC) [Entitic mass] 30.3 pg 27.0-32.0 [facility] Mean corpuscular hemoglobin concentration (MCHC) determinationOrdered By: Dorothy Lee on 11-05-2024 MCHC (RBC) [Mass/Vol] 33.4 g/dL 32-36 [facility] Mean platelet volume determi nationOrdered By: Dorothy Lee on 11-05-2024 Platelet mean volume (Bld) [Entitic vol] 10.1 fL 6.2-12.0 [facility] Monocyte percentageOrdered B y: Dorothy Lee on 11-05-2024 Monocytes/100 WBC (Bld) 5.8 % 0-10 [facility] Neutrophil percentageOrdered By: Dorothy Lee on 11-05-2024 Neutrophils/100 WBC (Bld) 71.4 % High 47-70 [facility] No Panel InformationOrdered By: Dorothy Lee on 11-05-2024 HIV (1&2) Antibody Non-Reactive Nonreactive [facility] Comment on above: Non-ReactiveReactive Repeatedly reactive samples must be confirmed according to CDC recommended confirmatory algorithms. The subresults for either HIVAG or AHIV can be used as an aid in the selection of the confirmation algorithm for reactive samples.Send out specimens with Reactive results to [facility] for confirmation.Order the HIV antibody detection and differentiation: #[id number] Nucleated red blood cell per centageOrdered By: Dorothy Lee on 11-05-2024 Nucleated RBC/100 WBC (Bld) [Ratio] 0 % 0-5 [facility] Interactive Developer Office Visit Reporton 11-05-2024 Interactive Developer Office Visit Report [facility] [address], [address] [place] [address] OFFICE VISIT Date of Service: 11/05/24 MR#: [id number] Acct: [id number] Name: MARTIN CASTELLANOS Rep #: [id number] : 1995 Provider: Dr. Rose Wolfe DO Age/Sex: 28/F Location: [facility] [place] Status: Signed Intake Vital Signs 08/27/24 13:56 09/29/24 10:27 11/05/24 08:41 11/05/24 08:44 Height 5 ft 4 in 5 ft 4 in 5 ft 4 in 5 ft 4 in Weight: 179 lb 2 oz BMI 30.7 BP 125/85 H Intake Visit Reasons: 14wk OB Automotive Vehicle Inspector Required: No Is patient in pain?: No Allergies Penicillins Allergy (Intermediate, Verified 11/05/24 08:41) Hives Medications ???Medication ???Instructions ???Recorded ???Confirmed ???Type multivitamin no.47-iron fum 27 1 cap PO Check with primary doctor 06/14/21 11/05/24 History mg-folate no.1 1 mg-dha 300 mg capsule (PNV-DHA) cholecalciferol (vitamin D3) 125 125 mcg PO QDAY 04/28/24 11/05/24 History mcg (5,000 unit) capsule magnesium gluconate 30 mg tablet 30 mg PO QDAY 04/28/24 11/05/24 Hi story sertraline 50 mg tablet (Zoloft) 50 mg PO DAILY #90 tabs 04/28/24 0 11/05/24 Rx cetirizine 10 mg tablet (Zyrtec) 10 mg PO QDAY PRN 09/19/24 5 History Last Menstrual Period: 07/23/24 Zika: Zika virus screening: Negative : No PFSH PFSH Medical History 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 Vaginal delivery COVID-19 vaccine series completed Surgical History H/O wisdom tooth extraction Family History Mother Hypertension Grandmother Breast cancer Paternal grt Grandmother Grandmother Hypertension Breast cancer, Onset Age: 60 Paternal Social History adopted: No household members: spouse housing: house number of children: 1 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al status: employed 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 pets and animals: Yes pets and animals: dog(s) history of recent travel: No sexually active: Yes Smoking Status: Never smoker second hand exposure: Yes alcohol intake: current alcohol intake frequency: holidays/special occasions only details: not while substance use type: does not use well-balanced diet: daily or most days caffeine: Yes Type: coffee Number of servings: 1 eating out: rarely or never during the past year weight has: remained stable what type of physical activity do you participate in: other details: Pelaton frequency: 3-4 times per week duration: 30-45 minutes/day juan alberto/lutheran: Druze seatbelt use: always do you feel safe at home: Yes additional social history: - Itz History 2 Elective abortions Hx Para 1 Spontaneous abortions Hx # Term Pregnancies Ectopic pregnancies Hx # Pregnancies Multiple births # of living children 1 Past Pregnancies Del. Date Name GA/Weeks Outcome Route Bth Weight Infant Gen Labor Lgth Anesthesia Del Locatn Provider FOB 02/05/22 Michael 41 live - full term 8#3oz Female epidural [facility] audra Mobley Delivery Date: 02/05/22 Last Updated by: Ruthie Costello see problem list for complications, and 41 IOL postdates sm girl michael atony HPI 14wk OB Details: MARTIN CASTELLANOS is a 28 year old who presents for routine OB visit. OB Visit ANJEL Calculator Estimated Delivery Date Method Current WG Current Estimate 04/29/25 LMP (Certain) 15w 0d Expected Delivery Route/Plan Labor Preferences- CB/BF classes: [] labor support person: [] labor intervention preferences: [] pain management options preferred: [] cut cord/dad catch: [] : [] PP control planned: [] discussed possible routes of delivery and associated risks: [] special requests: [] Specific Issue/Plans Covid status: [] Flu vaccine: [] Tdap vaccine: [] Rhogam: [] LARC form signed: [] Problem list reviewed and updated with the most current plan of care details and appropriate orders placed. Relevant counseling for the gestational age provided. Continue routine care and follow up unless otherwise noted in visit notes/problem list details Initial Weight: Not Recorded Date -???-???-???-???-???-? ??-???-???-???-???-??? -???- EGA Weight BP Urine Prot -???-???-???-???-???-? ??-???-???-???-???-??? -???- Glucose FHR FuHt Pres Dilation -???-???-???-???-???-? ??-???-???-???-???-??? -???- Effaced St Visit Note 09/29/24 -???-???-???-???-???-? ??-???-???-???-???-??? -???- 9w 5d 171 lb 4 oz 129/78 -???-???-???-???-???-? ??-???-???-???-???-??? -???- 165 -???-???-???-???-???-? ??-???-???-??? (more content not included)... Normal [facility] Platelet countOrdered By: Karena Lee on 11-05-2024 Platelets (Bld) [#/Vol] 206 10*3/uL 150-450 [facility] RBC Auto (Bld) [#/Vol]Ordere d By: Dorothy Lee on 11-05-2024 RBC (Bld) [#/Vol] 4.22 10*6/uL 4.2-5.[address] [facility] Syphilis Antibodieson 2024 Syphilis Abs Non-Reactive Normal Nonreactive [facility] Comment on above: Performed By: #### L 100.0100, L3890.6006, L509.8002, BTS, L509.4006, L3890.6301, L3890.6102 ####[facility] [id number] [place], [place], [id number] Type AND Screenon 11-05-2024 ABO and Rh group Nom (Bld) Blood group A Rh(D) positive Normal [facility] Comment on above: Order Comment: PN Performed By: #### L 100.0100, L3890.6006, L509.8002, BTS, L509.4006, L3890.6301, L3890.6102 ####[facility] [address] [place], [place], [id number] White blood cell (WBC) count Ordered By: Dorothy Lee on 11-05-2024 WBC (Bld) [#/Vol] 8.0 10*3/uL 4.4-11.0 [facility] Chlamydia/GC ZULEMA aptimaon CHLAMY,NUC ACID Negative Normal Negative [facility] Comment on above: Performed By: #### M 100.2200, L7000.1800 #### [facility] [address] [place], [address] GC BY NUC ACID Negative Normal Negative [facility] Comment on above: Result Comment: Perf ormed at: =G - [facility] [address] [id number] Dry Roaster: Shy Zelaya MD, Phone: [phone] Performed By: #### M 100.2200, L7000.1800 #### [facility] [address] [place], [address] Urine Cultureon 10-01-2024 URC Below infection leve l. Mixed Gram Positive Organisms [place] Count 1000-10,000 MIXC Mixed contaminants. Submit a new specimen if indicated. Normal [facility] Comment on above: Performed By: #### M 100.2200, L7000.1800 #### [facility] [address] [place], [address] C. trachomatis rRNA ZULEMA+prob e Ql (Unsp spec)Ordered By: Dorothy Lee on 09-29-2024 Chlamydia DNA (ZULEMA) Negative Negative [facility] Chlamydia trachomatis rRNA d etection by probe and target amplification methodOrdered By: Dorothy Lee on 09-29-2024 C. trachomatis rRNA ZULEMA+probe Ql (Unsp spec) Negative Negative [facility] Neisseria gonorrhoeae nuclei c acid detection by amplified probe techniqueOrdered By: Dorothy Lee on 09-29-2024 N. gonorrhoeae DNA ZULEMA+probe Ql (Unsp spec) Negative Negative [facility] Comment on above: Performed at: =G - [facility] [address] [id number] Director: Shy Zelaya MD, Phone: [phone] Interactive Developer Office Visit Reporton 09-29-2024 Interactive Developer Office Visit Report [facility] [address], [address] [place] [address] OFFICE VISIT Date of Service: 09/29/24 MR#: [id number] Acct: [id number] Name: MARTIN CASTELLANOS Rep #: [id number] : 1995 Provider: Dr. Dorothy fields MD Age/Sex: 28/F Location: [facility] [place] Status: Signed Intake Vital Signs 04/28/24 11:18 08/27/24 13:56 09/29/24 10:27 Height 5 ft 4 in 5 ft 4 in 5 ft 4 in Weight: 171 lb 4 oz BMI 29.4 BP 129/78 H Intake Visit Reasons: New OB, LMP 07/23, ANJEL 04/29 Automotive Vehicle Inspector Required: No Is patient in pain?: No Feel stressed/tense/nervous /anxious/difficulty sleeping: not at all Allergies Penicillins Allergy (Intermediate, Verified 09/29/24 10:30) Hives Medications ???Medication ???Instructions ???Recorded ???Confirmed ???Type multivitamin no.47-iron fum 27 1 cap PO Check with primary doctor 06/14/21 04/28/24 History mg-folate no.1 1 mg-dha 300 mg capsule (PNV-DHA) cholecalciferol (vitamin D3) 125 125 mcg PO QDAY 04/28/24 04/28/24 History mcg (5,000 unit) capsule magnesium gluconate 30 mg tablet 30 mg PO QDAY 04/28/24 04/28/24 Hi story sertraline 50 mg tablet (Zoloft) 50 mg PO DAILY #90 tabs 04/28/24 1 06/28/23 Rx cetirizine 10 mg tablet (Zyrtec) 10 mg PO QDAY PRN 09/19/24 Histor y Last Menstrual Period: 07/23/24 Zika: Zika virus screening: Negative : No PFSH PFSH Medical History 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 Vaginal delivery COVID-19 vaccine series completed Surgical History H/O wisdom tooth extraction Family History Mother Hypertension Grandmother Breast cancer Paternal grt Grandmother Grandmother Hypertension Breast cancer, Onset Age: 60 Paternal Social History adopted: No household members: spouse housing: house number of children: 1 service: No 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al status: employed 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 pets and animals: Yes pets and animals: dog(s) history of recent travel: No sexually active: Yes Smoking Status: Never smoker second hand exposure: Yes alcohol intake: current alcohol intake frequency: holidays/special occasions only details: not while substance use type: does not use well-balanced diet: daily or most days caffeine: Yes Type: coffee Number of servings: 1 eating out: rarely or never during the past year weight has: remained stable what type of physical activity do you participate in: other details: Pelaton frequency: 3-4 times per week duration: 30-45 minutes/day juan alberto/lutheran: Druze seatbelt use: always do you feel safe at home: Yes additional social history: - Itz History 2 Elective abortions Hx Para 1 Spontaneous abortions Hx # Term Pregnancies Ectopic pregnancies Hx # Pregnancies Multiple births # of living children 1 Past Pregnancies Del. Date Name GA/Weeks Outcome Route Bth Weight Infant Gen Labor Lgth Anesthesia Del Locatn Provider FOB 02/05/22 Michael 41 live - full term 8#3oz Female epidural [facility] Jesus Mobley Delivery Date: 02/05/22 Last Updated by: Ruthie Costello see problem list for complications, and 41 IOL postdates sm girl michael martha [facility] New OB, LMP 07/23, ANJEL 04/29 Details: MARTIN CASTELLANOS is a 28 year old who presents for New OB visit. OB Visit ANJEL Calculator Estimated Delivery Date Method Current WG Current Estimate 04/29/25 LMP (Certain) 9w 5d Comments: HIV: Urine Culture: Sequential Screen: NIPT Screen: Estimated Due Date: 04/29/25 Expected Delivery Route/Plan Labor Preferences- CB/BF classes: [] labor support person: [] labor intervention preferences: [] pain management options preferred: [] cut cord/dad catch: [] : [] PP control planned: [] discussed possible routes of delivery and associated risks: [] special requests: [] Specific Issue/Plans Covid status: [] Flu vaccine: [] Tdap vaccine: [] Rhogam: [] LARC form signed: [] Problem list reviewed and updated with the most current plan of care details and appropriate orders placed. Relevant counseling for the gestational age provided. Continue routine care and follow up unless otherwise noted in visit notes/problem list details Initial Weight: Not Recorded Date -???-???-???-???-???-? ??-???-???-???-???-??? -???- EGA Weight BP Urine Prot -???-???-???-???-???-? ??-???-???-???-???-??? -???- Glucose FHR FuHt Pres Dilation -???-???-???-???-???-? ??-???-???-???-???-??? -???- Effaced St Visit Note (more content not included)... Normal [facility] Urine cultureOrdered By: Pelon Lee on 09-29-2024 Bacteria identified Cx Nom (U) Positive Abnormal [facility] Hemoglobin A1Con 07-22-2024 Glucose [Mass/Vol] 103 mg/dL Normal [facility] Comment on above: Result Comment: The ADA and AACC recommend providing the estimated average glucose result to permit better patient understanding of their HBA1c result. Performed at [facility] [employer], [address] [place] [address] . HbA1c (Bld) [Mass fraction] 5.2 % Normal 4.0-6.0 [facility] Iron Binding Capon 5 % Fe Saturation 36 % Normal 20-55 [facility] Iron [Mass/Vol] 108 ug/dL Normal 37-145 [facility] Total Fe Binding Cap 303 ug/dL Normal 250-450 [facility] Unbound Fe Bind Cap 195 ug/dL Normal 112-347 [facility] Comment on above: Result Comment: Perf ormed at [facility], [address] [place] [address] . Vitamin D 25 OHon 07-22-2024 Vitamin D 25 OH 28.3 ng/mL Low 30.0-100.0 [facility] Comment on above: Result Comment: Reference Range: Vitamin D status Range Deficiency <20 ng/mL Mild Deficiency 20-30 ng/mL Sufficiency 30-100 ng/mL Toxicity >100 ng/mL Performed at [facility], [address] [place] [address] . CBC With Platelet and Differ entialon 07-21-2024 Basophils (Bld) [#/Vol] 0.0 10*3/uL Normal 0.0-0.2 [facility] Comment on above: Performed By: #### C BCWD #### [facility] [address] [place] [address] Basophils/100 WBC (Bld) 0.4 % Normal [facility] Comment on above: Performed By: #### C BCWD #### [facility] [address] [place] [address] Eosinophils (Bld) [#/Vol] 0.1 10*3/uL Normal 0.0-0.7 [facility] Comment on above: Performed By: #### C BCWD #### [facility] [address] [place] [address] Eosinophils/100 WBC (Bld) 1.6 % Normal [facility] Comment on above: Performed By: #### C BCWD #### [facility] [address] [place] [address] Erythrocyte distribution width (RBC) [Ratio] 12.8 % Normal 11.5-14.5 [facility] Comment on above: Performed By: #### C BCWD #### [facility] [address] [place] [address] Hematocrit (Bld) [Volume fraction] 42.8 % Normal 37.0-47.0 [facility] Comment on above: Performed By: #### C BCWD #### [facility] [address] [place] [address] Hemoglobin (Bld) [Mass/Vol] 14.1 g/dL Normal 12.0-16.0 [facility] Comment on above: Performed By: #### C BCWD #### [facility] [address] [place] [address] Lymphocytes (Bld) [#/Vol] 1.9 10*3/uL Normal 1.0-4.8 [facility] Comment on above: Performed By: #### C BCWD #### [facility] [address] [place] [address] Lymphocytes/100 WBC (Bld) 25.4 % Normal [facility] Comment on above: Performed By: #### C BCWD #### [facility] [address] [place] [address] MCH (RBC) [Entitic mass] 29.6 pg Normal 27.0-31.3 [facility] Comment on above: Performed By: #### C BCWD #### [facility] [address] [place] [address] MCHC 32.9 % Low 33.0-37.0 [facility] Comment on above: Performed By: #### C BCWD #### [facility] [address] [place] [address] MCV (RBC) [Entitic vol] 89.9 fL Normal 79.4-94.8 [facility] Comment on above: Performed By: #### C BCWD #### [facility] [address] [place] [address] Monocytes (Bld) [#/Vol] 0.4 10*3/uL Normal 0.2-0.8 [facility] Comment on above: Performed By: #### C BCWD #### [facility] [address] [place] [address] Monocytes/100 WBC (Bld) 5.6 % Normal [facility] Comment on above: Performed By: #### C BCWD #### [facility] [address] [place] [address] Neutrophils (Bld) [#/Vol] 4.9 10*3/uL Normal 1.4-6.5 [facility] Comment on above: Performed By: #### C BCWD #### [facility] [address] [place] [address] Neutrophils/100 WBC (Bld) 66.1 % Normal [facility] Comment on above: Performed By: #### C BCWD #### [facility] [address] [place] [address] Platelets (Bld) [#/Vol] 234 10*3/uL Normal 130-400 [facility] Comment on above: Performed By: #### C BCWD #### [facility] [address] [place] [address] RBC (Bld) [#/Vol] 4.76 10*6/uL Normal 4.20-5.40 [facility] Comment on above: Performed By: #### C BCWD #### [facility] [address] [place] [address] WBC (Bld) [#/Vol] 7.4 10*3/uL Normal 4.8-10.8 [facility] Comment on above: Performed By: #### C BCWD #### [facility] [address] [place] [address] Comprehensive Metabolic Pane j carlos 07-21-2024 Albumin [Mass/Vol] 4.4 g/dL Normal 3.5-4.6 [facility] Comment on above: Performed By: #### C MP #### [facility] [address] [place] [address] ALP [Catalytic activity/Vol] 66 U/L Normal 40-130 [facility] Comment on above: Performed By: #### C MP #### [facility] [address] [place] [address] ALT [Catalytic activity/Vol] 31 U/L Normal 0-33 [facility] Comment on above: Performed By: #### C MP #### [facility] [address] [place] [address] Anion gap [Moles/Vol] 12 mmol/L Normal 9-15 [facility] Comment on above: Performed By: #### C MP #### [facility] [address] [place] [address] AST [Catalytic activity/Vol] 21 U/L Normal 0-35 [facility] Comment on above: Performed By: #### C MP #### [facility] [address] [place] [address] Bilirubin [Mass/Vol] 0.3 mg/dL Normal 0.2-0.7 [facility] Comment on above: Performed By: #### C MP #### [facility] [address] [place] [address] Calcium [Mass/Vol] 9.2 mg/dL Normal 8.5-9.9 [facility] Comment on above: Performed By: #### C MP #### [facility] [address] [place] [address] Chloride [Moles/Vol] 101 mmol/L Normal 95-107 [facility] Comment on above: Performed By: #### C MP #### [facility] [address] [place] [address] CO2 [Moles/Vol] 25 mmol/L Normal 20-31 [facility] Comment on above: Performed By: #### C MP #### [facility] [address] [place] [address] Creatinine [Mass/Vol] 0.74 mg/dL Normal 0.50-0.90 [facility] Comment on above: Performed By: #### C MP #### [facility] [address] [place] [address] GFR >90.0 Normal >60 [facility] Comment on above: Result Comment: [facility] atric calculator link https://www.kidney.org/professionals/kdoqi/gfr_calculatorped Effective Mar 13, 2022 These results are not intended for use in patients <18 years of age. eGFR results are calculated without a race factor using the 2020 CKD-EPI equation. Careful clinical correlation is recommended, particularly when comparing to results calculated using previous equations. The CKD-EPI equation is less accurate in patients with extremes of muscle mass, extra-renal metabolism of creatinine, excessive creatinine ingestion, or following therapy that affects renal tubular secretion. Performed By: #### C MP #### [facility] [address] [place] [address] Globulin (S) [Mass/Vol] 3.4 g/dL Normal 2.3-3.5 [facility] Comment on above: Performed By: #### C MP #### [facility] [address] [place] [address] Glucose [Mass/Vol] 76 mg/dL Normal 70-99 [facility] Comment on above: Performed By: #### C MP #### [facility] [address] [place] [address] Potassium [Moles/Vol] 4.0 mmol/L Normal 3.4-4.9 [facility] Comment on above: Performed By: #### C MP #### [facility] [address] [place] [address] Protein [Mass/Vol] 7.8 g/dL Normal 6.3-8.0 [facility] Comment on above: Performed By: #### C MP #### [facility] [address] [place] [address] Sodium [Moles/Vol] 138 mmol/L Normal 135-144 [facility] Comment on above: Performed By: #### C MP #### [facility] [address] [place] [address] Urea nitrogen [Mass/Vol] 8 mg/dL Normal 6-20 [facility] Comment on above: Performed By: #### C MP #### [facility] [address] [place] [address] Lipid Panel Fastingon 2024 Cholesterol [Mass/Vol] 213 mg/dL Critically high 0-199 [facility] Comment on above: Result Comment: ATP III Cholesterol Classification is Borderline High. Performed By: #### L IPDF #### [facility] [address] [place] [address] HDL Cholesterol Fasting 64 mg/dL Critically high 40-59 [facility] Comment on above: Result Comment: ATP III HDL Cholesterol Classification is high. Expected Values: Males: >55 = No Risk 35-55 = Moderate Risk <35 = High Risk Females: >65 = No Risk 45-65 = Moderate Risk <45 = High Risk NCEP Guidelines: Third Report October 2000 >59 = negative risk factor for CHD <40 = major risk factor for CHD Performed By: #### L IPDF #### [facility] [address] [place] [address] LDL Cholesterol (Calculated) Fasting 137 mg/dL Critically high 0-129 [facility] Comment on above: Result Comment: ATT III Classification is Borderline High. Performed By: #### L IPDF #### [facility] [address] [place] [address] Triglycerides Fasting 60 mg/dL Normal 0-150 [facility] Comment on above: Result Comment: ATP III Triglycerides Classification is Normal. Performed By: #### L IPDF #### [facility] [address] [place] [address] TSH w/Reflexon 07-21-2024 TSH w/Reflex 2.260 uIU/mL Normal 0.440-3.86 [facility] Comment on above: Result Comment: Free T4 will automatically reflex with a TSH result of <0.270 or >4.200 Performed By: #### T SHR #### [facility] [address] [place] [address] PAP I-G w/rfx hrHPV-Aptimaon 05-05-2024 ADEQ Comment Normal . [facility] Comment on above: Order Comment: Speci men Comment: [id number] Specimen Comment: Source.............Cervix Specimen Comment: LMP / Prev Treat...[id number] Specimen Comment: No. of containers..01 ThinPrep Vial Result Comment: Sati sfactory for evaluation. Endocervical and/or squamous metaplastic cells (endocervical component) are present. Performed By: #### L 7400.0353 #### [facility] [address] [place], [place], [id number] COMM . Normal . [facility] Comment on above: Order Comment: Speci men Comment: [id number] Specimen Comment: Source.............Cervix Specimen Comment: LMP / Prev Treat...[id number] Specimen Comment: No. of containers..01 ThinPrep Vial Performed By: #### L 7400.0353 #### [facility] [address] [place], [place], [id number] COMMENT Comment Normal . [facility] Comment on above: Order Comment: Speci men Comment: [id number] Specimen Comment: Source.............Cervix Specimen Comment: LMP / Prev Treat...[id number] Specimen Comment: No. of containers..01 ThinPrep Vial Result Comment: This liquid based ThinPrep(R) pap test was screened with the use of an image guided system. Performed By: #### L 7400.0353 #### [facility] [address] [place], [place], [id number] DIAG Comment Normal . [facility] Comment on above: Order Comment: Speci men Comment: [id number] Specimen Comment: Source.............Cervix Specimen Comment: LMP / Prev Treat...[id number] Specimen Comment: No. of containers..01 ThinPrep Vial Result Comment: NEGA TIVE FOR INTRAEPITHELIAL LESION OR MALIGNANCY. Performed By: #### L 7400.0353 #### [facility] [address] [place], [address] HPV RFLX Comment Normal . [facility] Comment on above: Order Comment: Speci men Comment: [id number] Specimen Comment: Source.............Cervix Specimen Comment: LMP / Prev Treat...[id number] Specimen Comment: No. of containers..01 ThinPrep Vial Result Comment: The HPV DNA reflex criteria were not met with this specimen result therefore, no HPV testing was performed. Performed at: [address] [id number] Dry Roaster: Shy Zelaya MD, Phone: [phone] Performed By: #### L 7400.0353 #### [facility] [address] [place], [address] PAPSMR Comment Normal . [facility] Comment on above: Order Comment: Speci men Comment: [id number] Specimen Comment: Source.............Cervix Specimen Comment: LMP / Prev Treat...[id number] Specimen Comment: No. of containers..01 ThinPrep Vial Result Comment: The Pap smear is a screening test designed to aid in the detection of premalignant and malignant conditions of the uterine cervix. It is not a diagnostic procedure and should not be used as the sole means of detecting cervical cancer. Both false-positive and false-negative reports do occur. Performed By: #### L 7400.0353 #### [facility] [address] [place], [address] PERFORM Comment Normal . [facility] Comment on above: Order Comment: Speci men Comment: [id number] Specimen Comment: Source.............Cervix Specimen Comment: LMP / Prev Treat...[id number] Specimen Comment: No. of containers..01 ThinPrep Vial Result Comment: Pura Marinelli, Membership Sales Manager (ASCP) Performed By: #### L 7400.0353 #### [facility] [address] [place], [address] Interactive Developer Office Visit Reporton 04-28-2024 Interactive Developer Office Visit Report [facility] [address], [address] [place] [address] OFFICE VISIT Date of Service: 04/28/24 MR#: [id number] Acct: [id number] Name: MARTIN CASTELLANOS Rep #: [id number] : 1995 Provider: LUCINDA rodriguez Age/Sex: 28/F Location: [facility] [place] Status: Signed Intake Vital Signs 04/13/23 10:59 04/28/24 11:14 04/28/24 11:18 Height 5 ft 4 in 5 ft 4 in 5 ft 4 in Weight: 159 lb 6 oz BMI 27.3 BP 118/76 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) Chief Complaint: Annual Automotive Vehicle Inspector Required: No Is patient in pain?: No Allergies Penicillins Allergy (Intermediate, Verified 04/28/24 11:13) Hives Medications ???Medication ???Instructions ???Recorded ???Confirmed ???Type multivitamin no.47-iron fum 27 1 cap PO Check with primary doctor 06/14/21 04/28/24 History mg-folate no.1 1 mg-dha 300 mg capsule (PNV-DHA) cholecalciferol (vitamin D3) 125 125 mcg PO QDAY 04/28/24 04/28/24 History mcg (5,000 unit) capsule levonorgestrel 0.15 mg-ethinyl 1 tab PO DAILY #84 tabs 04/28/24 04/28/24 Rx estradiol 0.03 mg tablet (Altavera (28)) magnesium gluconate 30 mg tablet 30 mg PO QDAY 04/28/24 04/28/24 History sertraline 50 mg tablet (Zoloft) 50 mg PO DAILY #90 tabs 04/28/24 04/28/24 Rx Is last menstrual period known: Yes Last Menstrual Period: 04/07/24 Post menopausal: No Patient : No : No Control Method: OCP PFSH Medical History Vaginal delivery 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 COVID-19 vaccine series completed Surgical History H/O wisdom tooth extraction Family History Mother Hypertension Grandmother Breast cancer Grandmother Hypertension Social History household members: spouse housing: house 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al status: employed 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 Date Name GA/Weeks Outcome Route Bth Weight Infant Gen Labor Lgth Anesthesia Del Locatn Provider FOB 02/05/22 Michael 41 live - full term Female epidural [facility] audra Mobley Delivery Date: 02/05/22 Last Updated by: Ruthie Costello see problem list for complications, and 41 IOL postdates sm girl michael atony HPI Encounter for routine gynecological examination Details: MARTIN CASTELLANOS is a 28 year old who presents for annual exam. Denies concerns. Moving to [place] soon. Needs refill zoloft and altavera. Last PAP: 2020 History of abnormal PAP: no Last mammogram: age 35 Colon cancer screening: age 45 Other preventative health care screenings: CIM Female Reproductive History Last Menstrual Period: 04/07/24 Cycle Length: 21-35 Questions: metorrhagia: No, sexually active: Yes, dyspareunia: No and PCB: No ROS Const Constitutional: Denies fatigue, weight gain or weight loss Cardio Card: Denies chest pain Resp Resp: Denies cough or dyspnea on exertion GI GI: Denies abdominal pain, bloating, change in stool character, constipation or vomiting : Reports as per HPI; Denies difficulty voiding, pelvic pain, urinary frequency, urinary incontinence, urinary urgency, vaginal discharge or vaginal pruritus Exam Const General: cooperative, healthy appearing, no acute distress and well developed Orientation: alert, oriented to person and oriented to place [facility] Head: normal to inspection Neck Neck: normal visual inspection Thyroid: thyroid normal Lymphatic: no lymphadenopathy noted Chest Breast inspection: normal inspection of the breasts and normal inspection of the axillae Breast palpation: normal palpation of the breasts, normal palpation of the axillae and no axillary lymphadenopathy Resp Effort Inspection: normal respiratory effort GI Palpation: soft, no masses and nontender Rectal Exam: deferred External Female Exam: normal external appearance and normal appearance of the urethra Urethra: normal appearance of the urethra and normal palpation Speculum Exam - Vagina (more content not included)... Normal [facility] Absolute lymphocyte counton 02-04-2022 Lymphocytes Auto (Unsp spec) [#/Vol] 1.29 10*3/uL 0.83-4.51 [facility] Work Phone: Basophil percentageon 2021 Basophils/100 WBC (Bld) 0.4 % 0-1 [facility] Work Phone: Eosinophils/100 WBC (Bld) 1.5 % 0-5 [facility] Work Phone: Neutrophils (Bld) [#/Vol] 5.0 10*3/uL 2.0-7.7 [facility] Work Phone: Neutrophils/100 WBC (Bld) 70.1 % 47-70 [facility] Work Phone: WBC (Bld) [#/Vol] 7.2 10*3/uL 4.4-11.0 [facility] Work Phone: Blood erythrocytes count (nu mber/volume)on 02-04-2022 RBC (Bld) [#/Vol] 4.09 10*6/uL 4.2-5.[address] [facility] Work Phone: Blood hemoglobin measurement (mass/volume)on 02-04-2022 Hemoglobin (Bld) [Mass/Vol] 11.4 g/dL 12.0-15.0 [facility] Work Phone: Blood lymphocytes/100 leukoc yteson 02-04-2022 Lymphocytes/100 WBC (Bld) 18.0 % 19-41 [facility] Work Phone: Blood monocytes/100 leukocyt eson 02-04-2022 Monocytes/100 WBC (Bld) 8.7 % 0-10 [facility] Work Phone: Blood platelet mean volumeon 02-04-2022 Platelet mean volume (Bld) [Entitic vol] 10.9 fL 6.2-12.0 [facility] Work Phone: Determination of erythrocyte mean corpuscular volume (MCV)on 02-04-2022 MCV (RBC) [Entitic vol] 87.3 fL 81-99 [facility] Work Phone: Hematocrit Auto (Bld) [Volum e fraction]on 02-04-2022 Hematocrit (Bld) [Volume fraction] 35.7 % 37-47 [facility] Work Phone: Laboratory - Hematology and Cell countson 02-04-2022 Anisocytosis Ql (Bld) 1+ [facility] Work Phone: Erythrocyte distribution width (RBC) [Entitic vol] 63.8 fL 35.1-43.9 [facility] Work Phone: Erythrocyte distribution width (RBC) [Ratio] 20.4 % 11.6-14.6 [facility] Work Phone: Immature granulocytes/100 WBC (Bld) 1.300 % 0.0-0.9 [facility] Work Phone: Comment on above: IG% - Immature Granu locytes (promyelocytes, myelocytes and metamyelocytes) > 1% indicates that a LEFT SHIFT is Present. MCH (RBC) [Entitic mass] 27.9 pg 27.0-32.0 [facility] Work Phone: Nucleated RBC/100 WBC (Bld) [Ratio] 0 % 0-5 [facility] Work Phone: MCHC Auto (RBC) [Mass/Vol]on 02-04-2022 MCHC (RBC) [Mass/Vol] 31.9 g/dL 32-36 [facility] Work Phone: Platelets bldon 02-04-2022 Platelets (Bld) [#/Vol] 152 10*3/uL 150-450 [facility] Work Phone: Laboratory - Chemistry and C hemistry - challengeon 01-27-2022 Glucose Ql (U) Negative [facility] Work Phone: Laboratory - Urinalysison Protein Ql (U) Negative [facility] Work Phone: Laboratory - Chemistry and C hemistry - challengeon 01-17-2022 Glucose Ql (U) Negative [facility] Work Phone: Laboratory - Urinalysison Protein Ql (U) Negative [facility] Work Phone: Laboratory - Chemistry and C hemistry - challengeon 01-11-2022 Glucose Ql (U) Negative [facility] Work Phone: Laboratory - Urinalysison Protein Ql (U) Negative [facility] Work Phone: Laboratory - Chemistry and C hemistry - challengeon 12-20-2021 Glucose Ql (U) Negative [facility] Work Phone: Laboratory - Urinalysison Protein Ql (U) Negative [facility] Work Phone: Absolute lymphocyte counton 12-14-2021 Lymphocytes Auto (Unsp spec) [#/Vol] 1.41 10*3/uL 0.83-4.51 [facility] Work Phone: Basophil percentageon 2021 Basophil percentage 0 SEEN /hpf 0-5 [facility] Work Phone: Basophils/100 WBC (Bld) 0.3 % 0-1 [facility] Work Phone: Bilirubin [Mass/Vol] 0.20 mg/dL 0.20-1.00 [facility] Work Phone: Comment on above: For patients on eltr ombopag therapy, use of Dimension Seymour TBIL is not recommended. Chloride [Moles/Vol] 108 mmol/L 98-107 [facility] Work Phone: Eosinophils/100 WBC (Bld) 0.5 % 0-5 [facility] Work Phone: Glucose [Mass/Vol] 81 mg/dL 74-106 [facility] Work Phone: Neutrophils (Bld) [#/Vol] 7.0 10*3/uL 2.0-7.7 [facility] Work Phone: Neutrophils/100 WBC (Bld) 75.7 % 47-70 [facility] Work Phone: Potassium [Moles/Vol] 3.7 mmol/L 3.5-5.1 [facility] Work Phone: Protein [Mass/Vol] 6.9 g/dL 6.4-8.2 [facility] Work Phone: Sodium [Moles/Vol] 138 mmol/L 136-145 [facility] Work Phone: WBC (Bld) [#/Vol] 9.2 10*3/uL 4.4-11.0 [facility] Work Phone: Bilirubin Test strip Ql (U)o n 12-14-2021 Bilirubin Ql (U) Negative Negative [facility] Work Phone: Blood erythrocytes count (nu mber/volume)on 12-14-2021 RBC (Bld) [#/Vol] 3.70 10*6/uL 4.2-5.[address] [facility] Work Phone: Blood hemoglobin measurement (mass/volume)on 12-14-2021 Hemoglobin (Bld) [Mass/Vol] 10.5 g/dL 12.0-15.0 [facility] Work Phone: Blood lymphocytes/100 leukoc yteson 12-14-2021 Lymphocytes/100 WBC (Bld) 15.3 % 19-41 [facility] Work Phone: Blood monocytes/100 leukocyt eson 12-14-2021 Monocytes/100 WBC (Bld) 6.1 % 0-10 [facility] Work Phone: Blood platelet mean volumeon 12-14-2021 Platelet mean volume (Bld) [Entitic vol] 10.2 fL 6.2-12.0 [facility] Work Phone: Determination of erythrocyte mean corpuscular volume (MCV)on 12-14-2021 MCV (RBC) [Entitic vol] 87.3 fL 81-99 [facility] Work Phone: Hematocrit Auto (Bld) [Volum e fraction]on 12-14-2021 Hematocrit (Bld) [Volume fraction] 32.3 % 37-47 [facility] Work Phone: Ketones Test strip Ql (U)on 12-14-2021 Ketones Ql (U) 50 mg/dl Negative [facility] Work Phone: Laboratory - Chemistry and C hemistry - challengeon 12-14-2021 ALP [Catalytic activity/Vol] 69 U/L 45-117 [facility] Work Phone: ALT [Catalytic activity/Vol] 38 U/L 13-56 [facility] Work Phone: CO2 [Moles/Vol] 24.0 mmol/L 21.0-32.0 [facility] Work Phone: Globulin (S) [Mass/Vol] 4.0 g/dL 2.2-4.2 [facility] Work Phone: Urea nitrogen/Creatinine [Mass ratio] 14.2 mg/mg 10-20 [facility] Work Phone: Laboratory - Hematology and Cell countson 12-14-2021 Erythrocyte distribution width (RBC) [Entitic vol] 41.1 fL 35.1-43.9 [facility] Work Phone: Erythrocyte distribution width (RBC) [Ratio] 13.1 % 11.6-14.6 [facility] Work Phone: Immature granulocytes/100 WBC (Bld) 2.100 % 0.0-0.9 [facility] Work Phone: Comment on above: IG% - Immature Granu locytes (promyelocytes, myelocytes and metamyelocytes) > 1% indicates that a LEFT SHIFT is Present. MCH (RBC) [Entitic mass] 28.4 pg 27.0-32.0 [facility] Work Phone: Nucleated RBC/100 WBC (Bld) [Ratio] 0 % 0-5 [facility] Work Phone: MCHC Auto (RBC) [Mass/Vol]on 12-14-2021 MCHC (RBC) [Mass/Vol] 32.5 g/dL 32-36 [facility] Work Phone: Mucus LM Ql (Urine sed)on Mucus Ql (Urine sed) 0 SEEN /hpf [facility] Work Phone: Nitrite Test strip Ql (U)on 12-14-2021 Nitrite Ql (U) Negative Negative [facility] Work Phone: No Panel Informationon 12-14 Estimated Creatinine Clearance Calc 116.85 ml/min [facility] Work Phone: Estimated GFR (MDRD) Amer 146 mL/min >60 [facility] Work Phone: Comment on above: GFR Calc Estimated GFR (MDRD) Non-Af Amer 121 mL/min >60 [facility] Work Phone: Comment on above: Non- GFR Calc Thyroid Stimulating Hormone (TSH) 2.74 uIU/mL 0.358-3.74 [facility] Work Phone: Platelets bldon 12-14-2021 Platelets (Bld) [#/Vol] 189 10*3/uL 150-450 [facility] Work Phone: Protein Test strip Ql (U)on 12-14-2021 Protein Ql (U) Negative Negative [facility] Work Phone: Serum or plasma albumin tommy urement (mass/volume)on 12-14-2021 Albumin [Mass/Vol] 2.9 g/dL 3.2-5.0 [facility] Work Phone: Serum or plasma albumin/glob ulin mass ratioon 12-14-2021 Albumin/Globulin [Mass ratio] 0.7 {ratio} 0.9-2.4 [facility] Work Phone: Serum or plasma calcium tommy urement (mass/volume)on 12-14-2021 Calcium [Mass/Vol] 9.0 mg/dL 8.5-10.1 [facility] Work Phone: Serum or plasma creatinine m easurement (mass/volume)on 12-14-2021 Creatinine [Mass/Vol] 0.63 mg/dL 0.55-1.02 [facility] Work Phone: Comment on above: The validity of the calculated GFR & GFRAA in patients over 70 years has not been determined. Clinical correlation is essential. Serum or plasma urea nitroge n measurement (mass/volume)on 12-14-2021 Urea nitrogen [Mass/Vol] 9 mg/dL 7-18 [facility] Work Phone: Squamous epithelial cells de tection in urine sediment by light microscopyon 12-14-2021 Epithelial cells.squamous LM Ql (Urine sed) 0 SEEN /hpf 5-10 [facility] Work Phone: Thin prep Papanicolaou smear with manual screeningon 12-14-2021 Thin prep Papanicolaou smear with manual screening 29 U/L 15-37 [facility] Work Phone: Thin prep Papanicolaou smear with manual screening 6 5-15 [facility] Work Phone: Urine blood detectionon 07-0 RBC Ql (U) Negative Negative [facility] Work Phone: RBC Ql (U) 0 SEEN /hpf 0-5 [facility] Work Phone: Urine clarityon 12-14-2021 Clarity (U) Clear Clear [facility] Work Phone: Urine color determinationon 12-14-2021 Color (U) Yellow Yellow [facility] Work Phone: Urine glucose detectionon Glucose Ql (U) Normal mg/dl Normal [facility] Work Phone: Urine leukocyte esterase det ection by dipstickon 12-14-2021 Leukocyte esterase Test strip Ql (U) Negative Negative [facility] Work Phone: Urine pHon 12-14-2021 pH (U) 6.5 [pH] 5.0 - 8.0 [facility] Work Phone: Urine sediment bacteria coun t by microscopy (number/high power field)on 12-14-2021 Bacteria LM.HPF (Urine sed) [#/Area] 0 /[HPF] None Seen [facility] Work Phone: Urine specific gravity measu rementon 12-14-2021 Specific gravity (U) [Rel density] 1.010 1.002-1.030 [facility] Work Phone: Urobilinogen Auto test strip Ql (U)on 12-14-2021 Urobilinogen Ql (U) Normal mg/dl Normal [facility] Work Phone: Laboratory - Chemistry and C hemistry - challengeon 12-08-2021 Glucose Ql (U) Negative [facility] Work Phone: Laboratory - Urinalysison Protein Ql (U) Negative [facility] Work Phone: Laboratory - Chemistry and C hemistry - challengeon 11-25-2021 Glucose Ql (U) Negative [facility] Work Phone: Laboratory - Urinalysison Protein Ql (U) Negative [facility] Work Phone: Laboratory - Chemistry and C hemistry - challengeon 11-08-2021 Glucose Ql (U) Negative [facility] Work Phone: Laboratory - Urinalysison Protein Ql (U) Negative [facility] Work Phone: Absolute lymphocyte counton 10-26-2021 Lymphocytes Auto (Unsp spec) [#/Vol] 1.42 10*3/uL 0.83-4.51 [facility] Work Phone: Basophil percentageon 2021 Basophils/100 WBC (Bld) 0.7 % 0-1 [facility] Work Phone: Eosinophils/100 WBC (Bld) 1.9 % 0-5 [facility] Work Phone: Neutrophils (Bld) [#/Vol] 5.0 10*3/uL 2.0-7.7 [facility] Work Phone: Neutrophils/100 WBC (Bld) 66.6 % 47-70 [facility] Work Phone: WBC (Bld) [#/Vol] 7.6 10*3/uL 4.4-11.0 [facility] Work Phone: Blood erythrocytes count (nu mber/volume)on 10-26-2021 RBC (Bld) [#/Vol] 3.73 10*6/uL 4.2-5.[address] [facility] Work Phone: Blood hemoglobin measurement (mass/volume)on 10-26-2021 Hemoglobin (Bld) [Mass/Vol] 11.4 g/dL 12.0-15.0 [facility] Work Phone: Blood lymphocytes/100 leukoc yteson 10-26-2021 Lymphocytes/100 WBC (Bld) 18.8 % 19-41 [facility] Work Phone: Blood monocytes/100 leukocyt eson 10-26-2021 Monocytes/100 WBC (Bld) 8.2 % 0-10 [facility] Work Phone: Blood platelet mean volumeon 10-26-2021 Platelet mean volume (Bld) [Entitic vol] 9.5 fL 6.2-12.0 [facility] Work Phone: Determination of erythrocyte mean corpuscular volume (MCV)on 10-26-2021 MCV (RBC) [Entitic vol] 93.8 fL 81-99 [facility] Work Phone: Gestational diabetes screen 1-hour screen with 50g oral glucose loadon 10-26-2021 Glucose 1 Hr post 50 g glucose PO [Mass/Vol] 96 mg/dL 70-140 [facility] Work Phone: Hematocrit Auto (Bld) [Volum e fraction]on 10-26-2021 Hematocrit (Bld) [Volume fraction] 35.0 % 37-47 [facility] Work Phone: Laboratory - Chemistry and C hemistry - challengeon 10-26-2021 Glucose Ql (U) Negative [facility] Work Phone: Laboratory - Hematology and Cell countson 10-26-2021 Erythrocyte distribution width (RBC) [Entitic vol] 44.0 fL 35.1-43.9 [facility] Work Phone: Erythrocyte distribution width (RBC) [Ratio] 12.7 % 11.6-14.6 [facility] Work Phone: Immature granulocytes/100 WBC (Bld) 3.800 % 0.0-0.9 [facility] Work Phone: Comment on above: IG% - Immature Granu locytes (promyelocytes, myelocytes and metamyelocytes) > 1% indicates that a LEFT SHIFT is Present. MCH (RBC) [Entitic mass] 30.6 pg 27.0-32.0 [facility] Work Phone: Nucleated RBC/100 WBC (Bld) [Ratio] 0 % 0-5 [facility] Work Phone: Laboratory - Urinalysison Protein Ql (U) Negative [facility] Work Phone: MCHC Auto (RBC) [Mass/Vol]on 10-26-2021 MCHC (RBC) [Mass/Vol] 32.6 g/dL 32-36 [facility] Work Phone: Platelets bldon 10-26-2021 Platelets (Bld) [#/Vol] 211 10*3/uL 150-450 [facility] Work Phone: Laboratory - Chemistry and C hemistry - challengeon 09-23-2021 Glucose Ql (U) Negative [facility] Work Phone: Laboratory - Urinalysison Protein Ql (U) Negative [facility] Work Phone: Laboratory - Chemistry and C hemistry - challengeon 08-23-2021 Glucose Ql (U) Negative [facility] Work Phone: Laboratory - Urinalysison Protein Ql (U) Negative [facility] Work Phone: Laboratory - Chemistry and C hemistry - challengeon 07-26-2021 Glucose Ql (U) Negative [facility] Work Phone: Laboratory - Urinalysison Protein Ql (U) Negative [facility] Work Phone: Absolute lymphocyte counton 06-30-2021 Lymphocytes Auto (Unsp spec) [#/Vol] 1.37 10*3/uL 0.83-4.51 [facility] Work Phone: Basophil percentageon 2021 Basophils/100 WBC (Bld) 0.4 % 0-1 [facility] Work Phone: Eosinophils/100 WBC (Bld) 0.5 % 0-5 [facility] Work Phone: Neutrophils (Bld) [#/Vol] 5.9 10*3/uL 2.0-7.7 [facility] Work Phone: Neutrophils/100 WBC (Bld) 74.2 % 47-70 [facility] Work Phone: WBC (Bld) [#/Vol] 8.0 10*3/uL 4.4-11.0 [facility] Work Phone: Blood erythrocytes count (nu mber/volume)on 06-30-2021 RBC (Bld) [#/Vol] 4.25 10*6/uL 4.2-5.4 [facility] Work Phone: Blood hemoglobin measurement (mass/volume)on 06-30-2021 Hemoglobin (Bld) [Mass/Vol] 12.8 g/dL 12.0-15.0 [facility] Work Phone: Blood lymphocytes/100 leukoc yteson 06-30-2021 Lymphocytes/100 WBC (Bld) 17.2 % 19-41 [facility] Work Phone: Blood monocytes/100 leukocyt eson 06-30-2021 Monocytes/100 WBC (Bld) 7.2 % 0-10 [facility] Work Phone: Blood platelet mean volumeon 06-30-2021 Platelet mean volume (Bld) [Entitic vol] 9.8 fL 6.2-12.0 [facility] Work Phone: Chlamydia trachomatis rRNA d etection by probe and target amplification methodon 06-30-2021 C. trachomatis rRNA ZULEMA+probe Ql (Unsp spec) Negative Negative [facility] Work Phone: Culture, urineon 06-30-2021 Bacteria identified Cx Nom (U) Culture exhibits no growth. [facility] Work Phone: Determination of erythrocyte mean corpuscular volume (MCV)on 06-30-2021 MCV (RBC) [Entitic vol] 89.4 fL 81-99 [facility] Work Phone: HIV 1 and HIV-2 antibody ass ay with HIV-1 p24 antigen detectionon 06-30-2021 HIV 1+2 Ab+HIV1 p24 Ag IA Ql Non-Reactive Nonreactive [facility] Work Phone: Hematocrit Auto (Bld) [Volum e fraction]on 06-30-2021 Hematocrit (Bld) [Volume fraction] 38.0 % 37-47 [facility] Work Phone: Laboratory - Drug toxicology on 06-30-2021 Amphetamines Ql (U) Negative [facility] Work Phone: Benzodiazepines Ql (U) Negative [facility] Work Phone: Cannabinoids Screen Ql (U) Negative [facility] Work Phone: Cocaine Ql (U) Negative [facility] Work Phone: Opiates Ql (U) Negative [facility] Work Phone: Laboratory - Hematology and Cell countson 06-30-2021 Erythrocyte distribution width (RBC) [Entitic vol] 42.3 fL 35.1-43.9 [facility] Work Phone: Erythrocyte distribution width (RBC) [Ratio] 12.8 % 11.6-14.6 [facility] Work Phone: Immature granulocytes/100 WBC (Bld) 0.500 % 0.0-0.9 [facility] Work Phone: Comment on above: IG% - Immature Granu locytes (promyelocytes, myelocytes and metamyelocytes) > 1% indicates that a LEFT SHIFT is Present. MCH (RBC) [Entitic mass] 30.1 pg 27.0-32.0 [facility] Work Phone: Nucleated RBC/100 WBC (Bld) [Ratio] 0 % 0-5 [facility] Work Phone: Laboratory - Microbiology an d Antimicrobial susceptibilityon 06-30-2021 N. gonorrhoeae DNA ZULEMA+probe Ql (Unsp spec) Negative Negative [facility] Work Phone: Comment on above: Performed at: =[facility] [address] [id number] Director: Shy Zelaya MD, Phone: [phone] MCHC Auto (RBC) [Mass/Vol]on 06-30-2021 MCHC (RBC) [Mass/Vol] 33.7 g/dL 32-36 [facility] Work Phone: No Panel Informationon 06-30 Urine Barbiturates Screen Negative [facility] Work Phone: Urine Drug Screen Comment [facility] Work Phone: Comment on above: CONFIRMATORY TESTING FOR ALL POSITIVE URINE DRUG SCREENRESULTS WILL ONLY BE SENT OUT UPON PHYSICIAN ORDER. VISTA Urine Drug Screen methods provide only preliminaryanalytical test results. A more specific alternate chemicalmethod must be used in order to obtain a confirmedanalytical result. Gas chromatography/mass spectrometery(GC/MS) is the preferred confirmatory method. Clinicalconsideration and professional judgement should be appliedto any drug of abuse test result, particularly whenpreliminary positive results are used. URINE TCA TESTING MUST BE ORDERED SEPARATELY. USE TESTMNEMONIC: [facility] Urine Methadone Screen Negative [facility] Work Phone: Urine Methamphetamine-MDMA Screen Negative [facility] Work Phone: Hepatitis B Surface Antigen Non-Reactive Nonreactive [facility] Work Phone: Hepatitis C Antibody Non-Reactive Nonreactive [facility] Work Phone: Comment on above: Non Reactive: < 0.8 Equivocal: >/= 0.8 to < 1.0 Reactive: >/= 1.0The CDC recommends that a reactive/equivocal HCV antibody result be followed up by the HCV Nucleic Acid Amplificationtest (718502) Rubella IgG Antibody Reactive Nonreactive [facility] Work Phone: Comment on above: Antibody Results Int erpretation of Immune Status Non Reactive Presumed Non-Immune Equivocal Equivocal Reactive Presumed Immune Platelets bldon 06-30-2021 Platelets (Bld) [#/Vol] 194 10*3/uL 150-450 [facility] Work Phone: Serum Treponema species anti body detectionon 06-30-2021 Treponema sp Ab Ql (S) Non-Reactive [facility] Work Phone: Urine phencyclidine (PCP) de tectionon 06-30-2021 Phencyclidine Ql (U) Negative [facility] Work Phone: COVID-19 Antigenon 1 COVID-19 Antigen Healthcare 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 Negative results do not rule Subhash Disclaimer out COVID-19 and should not be used as the sole Subhash Disclaimer basis for treatment or patient management Subhash Disclaimer decisions, including infection control decisions. Subhash Disclaimer Negative results should be considered in the Subhash Disclaimer context of a patient's recent exposures, history Subhash Disclaimer and the presence of clinical signs and symptoms Subhash Disclaimer consistent with COVID-19. COVID19 Blank Space Subhash Disclaimer The Subhash SARS Antigen BRYSON does not differentiate Subhash Disclaimer between SARS-CoV and SARS-CoV-2. COVID19 Blank Space Subhash Disclaimer This test was developed and its performance Subhash Disclaimer characteristic determined by [employer] and Subhash Disclaimer validated at [facility]. This Subhash Disclaimer test has not been FDA cleared or approved. This Subhash Disclaimer test has been authorized by FDA under an Emergency Use Subhash Disclaimer Authorization (EUA). This test has been validated Subhash Disclaimer in accordance with the FDA's Guidance Document (Policy Subhash Disclaimer for Diagnostics Testing in Laboratories Certified to Subhash Disclaimer Perform High Complexity Testing under CLIA prior to Subhash Disclaimer Emergency Use Authorization for Coronavirus Subhash Disclaimer iseas during the Public Health Emergency) Subhash Disclaimer issued on September 11, 2019. This test is only authorized Subhash Disclaimer for the duration of time the declaration that Subhash Disclaimer circumstances exist justifying the authorization of Subhash Disclaimer the emergency use of in vitro diagnostic tests for Subhash Disclaimer detection of SARS-CoV-2 virus and/or diagnosis of Subhash Disclaimer COVID-19 infection under section 564(b)(1) of the Subhash Disclaimer Act, 21 U.S.C. 360bbb-3(b)(1), unless the Subhash Disclaimer authorization is terminated or revoked sooner. PERFORMED BY: [place] [address] PATHOLOGIST FUNERAL DIRECTOR'S ASSISTANT JORDON BOWDEN M.D. Normal [facility] Comment on above: Performed By: #### S OFKARLIEG, COVID-19 SUBHASH #### [facility] [address] [place] [address] Subhash Ag Negativeon 03-11-20 21 Subhash Ag Negative Negative Normal Negative [facility] Comment on above: Result Comment: This is a duplicate Subhash SARS Antigen (BRYSON) result to be used for statistical tracking purpose only. PERFORMED BY: [place] [address] PATHOLOGIST FUNERAL DIRECTOR'S ASSISTANT JORDON BOWDEN M.D. Performed By: #### S OFIANEG, COVID-19 SUBHASH #### [facility] [address] [place], [place] [id number] [facility] Comprehensive Metabolic Empo n 02-09-2021 Albumin [Mass/Vol] 4.3 g/dL Normal 3.2-5.5 [facility] Comment on above: Performed By: #### E BS CMP, LIPID #### [facility] [address] Albumin/Globulin [Mass ratio] 1.5 {ratio} Normal [facility] Comment on above: Performed By: #### E BS CMP, LIPID #### [facility] [address] ALP [Catalytic activity/Vol] 39 U/L Normal 32-92 [facility] Comment on above: Performed By: #### E BS CMP, LIPID #### [facility] [address] ALT [Catalytic activity/Vol] 12 U/L Normal 10-60 [facility] Comment on above: Performed By: #### E BS CMP, LIPID #### [facility] [address] [place] [address] AST [Catalytic activity/Vol] 15 U/L Normal 10-42 [facility] Comment on above: Performed By: #### E BS CMP, LIPID #### [facility] [address] [place] [address] Bilirubin [Mass/Vol] 0.5 mg/dL Normal 0.3-1.2 [facility] Comment on above: Performed By: #### E BS CMP, LIPID #### [facility] [address] [place] [address] [place] Calcium [Mass/Vol] 9.5 mg/dL Normal 8.2-10.2 [facility] Comment on above: Performed By: #### E BS CMP, LIPID #### [facility] [address] [place] [address] [place] Chloride [Moles/Vol] 102 mmol/L Normal 95-114 [facility] Comment on above: Performed By: #### E BS CMP, LIPID #### [facility] [address] [place] [address] CO2 [Moles/Vol] 23.8 mmol/L Normal 22.0-30.0 [facility] Comment on above: Performed By: #### E BS CMP, LIPID #### [facility] [address] Creatinine [Mass/Vol] 0.83 mg/dL Normal 0.44-1.03 [facility] Comment on above: Performed By: #### E BS CMP, LIPID #### [facility] [address] Estimated GFR ( Radha > 60 Normal [facility] Comment on above: Result Comment: GFR estimated reference range: According to KDOQI guidelines, <60 ml/min/1.73m2 is sufficient to diagnose a patient with chronic kidney disease. Performed By: #### E BS CMP, LIPID #### [facility] [address] Estimated GFR (Non- Am > 60 Normal [facility] Comment on above: Performed By: #### E BS CMP, LIPID #### [facility] [address] Globulin (S) [Mass/Vol] 2.9 g/dL Normal [facility] Comment on above: Performed By: #### E BS CMP, LIPID #### [address] Glucose [Mass/Vol] 77 mg/dL Normal 70-100 [facility] Comment on above: Performed By: #### E BS CMP, LIPID #### [facility] [address] [place] [address] [place] Potassium [Moles/Vol] 3.4 mmol/L Low 3.5-5.1 [facility] Comment on above: Performed By: #### E BS CMP, LIPID #### [facility] [address] [place] [id number] [place] Protein [Mass/Vol] 7.2 g/dL Normal 6.1-7.9 [facility] Comment on above: Performed By: #### E BS CMP, LIPID #### [facility] [address] [place] [id number] [place] Sodium [Moles/Vol] 136 mmol/L Normal 136-146 [facility] Comment on above: Performed By: #### E BS CMP, LIPID #### [facility] [address] [place] [address] [place] Urea nitrogen [Mass/Vol] 7 mg/dL Low - [facility] Comment on above: Performed By: #### E BS CMP, LIPID #### [facility] [address] [place] [address] [place] Lipid Panelon 02-09-2021 Cholesterol [Mass/Vol] 218 mg/dL High 140-200 [facility] Comment on above: Result Comment: Chol less than 200 mg/dl low risk Chol 201-239 mg/dl borderline risk Chol 240 mg/dl and greater high risk Performed By: #### E BS CMP, LIPID #### [facility] [address] Cholesterol in HDL [Mass/Vol] 75 mg/dL Normal 35-85 [facility] Comment on above: Result Comment: HDL CHOL ATP-III CLASSIFICATION Cardiovascular Risk HDL > or equal to 60 mg/dL LOW HDL < 40 mg/dL HIGH Performed By: #### E BS CMP, LIPID #### [facility] [address] [place] [address] [place] Cholesterol.total/Chol esterol in HDL [Mass ratio] 2.9 {ratio} Normal <5.0 [facility] Comment on above: Result Comment: PERF ORMED BY: [place] [address] PATHOLOGIST FUNERAL DIRECTOR'S ASSISTANT JORDON BOWDEN M.D. Performed By: #### E BS CMP, LIPID #### [facility] [address] [place] [address] [place] LDL Cholesterol,Calculated 126 mg/dL High 0-100 [facility] Comment on above: Result Comment: LDL ATP III CLASSIFICATION LDL less than 100 mg/dL Optimal LDL 100-129 mg/dL Near or above optimal LDL 130-159 mg/dL Borderline high LDL 160-189 mg/dL High LDL greater than 189 mg/dL Very high Performed By: #### E BS CMP, LIPID #### [facility] [address] [place] [address] [place] Triglyceride w/Reflex 84 mg/dL Normal 35-149 [facility] Comment on above: Result Comment: TRIG ATP III CLASSIFICATION TRIG less than 150 mg/dL Normal TRIG 150-199 mg/dL Borderline high TRIG 200-500 mg/dL High TRIG greater than 500 mg/dL Very high Standard traceable to the Center for Disease Conrtrol and Prevention (CDC) test method. Performed By: #### E BS CMP, LIPID #### [facility] [address] VLDL CHOLESTEROL 16 mg/dL Normal [facility] Comment on above: Performed By: #### E BS CMP, LIPID #### [facility] [address] [place] [address] [facility] HPV Auto Reflex PAP (50316)O rdered By: Grants Analyst on 08-09-2020 HPV Auto Reflex PAP (97333) [facility] Normal [facility]; [facility] Work Phone: Comment on above: NEGATIVE FOR INTRAEP ITHELIAL LESION OR MALIGNANCY.Satisfactory for evaluation. No endocervical component is identified.Z01.419Amanda Monica Tee, Membership Sales Manager (ASCP) Source.............C ervix;EndocervixNo. of containers..01 ThinPrep VialPATIENT NOT FASTINGPERFORMED BY: LabDefinigenZbxhxuturc[address] [id number] Information: [id number] HPV Auto Reflex PAP (28731) . Normal [facility]; [facility] Work Phone: Comment on above: Source.............C ervix;EndocervixNo. of containers..01 ThinPrep VialPATIENT NOT FASTINGPERFORMED BY: [address] [id number] Information: [id number] HPV Auto Reflex PAP (86080) PAPSMR Normal [facility]; [facility] Work Phone: Comment on above: The Pap smear is a s creening test designed to aid in the detection ofpremalignant and malignant conditions of the uterine cervix. It is not adiagnostic procedure and should not be used as the sole means of detectingcervical cancer. Both false-positive and false-negative reports do occur. .This liquid based ThinPrep(R) pap test was screened with theuse of an image guided system.The HPV DNA reflex criteria were not met with this specimen resulttherefore, no HPV testing was performed. . Source.............C ervix;EndocervixNo. of containers..01 ThinPrep VialPATIENT NOT FASTINGPERFORMED BY: [employer] [employer] PlazaProdu[address] [address] [id number] Information: [id number] Thin prep Pap (06215)Ordered By: Grants Analyst on 06-17-2019 Thin prep Pap (60958) 21-24 Normal [facility]; [facility] Work Phone: Comment on above: Source.............C ervix;EndocervixNo. of containers..01 ThinPrep VialPATIENT NOT FASTINGPERFORMED BY: =G LabSt. Renatus120 [employer] PlaRevelationrl[address] W [id number] BY: [employer] Arquo Technologiesrleston [place] [id number] Information: [id number] IGP, CtNg, rfx Aptima HPV CUon 06-10-2018 C. trachomatis rRNA ZULEMA+probe Ql (Cvx) Negative Normal [facility] Work Phone: Comment on above: No. of containers..0 1 ThinPrep VialPERFORMED BY: =G LabSt. Renatus[address] [employer] PlaRevelationrl[address] W [id number] BY: [employer] ShareYourCartzaProduce Run[place] [id number] Microscopic observation Other stain Nom (Unsp spec) . Normal [facility] Work Phone: Comment on above: No. of containers..0 1 ThinPrep VialPERFORMED BY: =G [employer] [facility] [place] [id number] BY: WB [facility] Pipqgjoran[address] [facility] [place] [id number] N. gonorrhoeae rRNA ZULEMA+probe Ql (Cvx) Negative Normal [facility] Work Phone: Comment on above: No. of containers..0 1 ThinPrep VialPERFORMED BY: =G [facility] Oocbiuggod[address] [facility] [place] [id number] BY: WB [facility] Zlvyobepry[address] [facility] [place] [id number] Pathology report final diagnosis Narrative [facility] Normal [facility] Work Phone: Comment on above: NEGATIVE FOR INTRAEP ITHELIAL LESION AND MALIGNANCY.Satisfactory for evaluation. No endocervical component is identified.Z01.419Bruce Ck Bruner Membership Sales Manager (ASCP) No. of containers..0 1 ThinPrep VialPERFORMED BY: =G [facility] Rlvghpmalh390 [address] [facility] [place] [id number] BY: WB LabDefinigenGmpbaxdisk745 [facility] [place] [id number] IGP, CtNg, rfx Aptima HPV ASCU PAPSMR Normal [facility] Work Phone: Comment on above: The Pap smear is a s creening test designed to aid in the detection ofpremalignant and malignant conditions of the uterine cervix. It is not adiagnostic procedure and should not be used as the sole means of detectingcervical cancer. Both false-positive and false-negative reports do occur. .This liquid based ThinPrep(R) pap test was screened with theuse of an image guided system.The HPV DNA reflex criteria were not met with this specimen resulttherefore, no HPV testing was performed. . No. of containers..0 1 ThinPrep VialPERFORMED BY: =G [facility] Dkifvrfixx[address] [facility] [place] [id number] BY: WB [facility] Yrfcdoypmr126 [facility] Center[facility] [place] [id number] Thin prep Pap (26724) (no ST D testing)on 06-10-2018 Thin prep Pap (72692) (no STD testing) 21-24 Normal [facility] Work Phone: Comment on above: No. of containers..0 1 ThinPrep VialPERFORMED BY: =G LabCo[address] [id number] BY: WB [facility] Ckalfgwtsl[address] [id number] Information: [id number] Rapid Strep Test, Office (28 328)Ordered By: Katelyn Aburto on 05-23-2017 S. pyogenes Ag EIA Ql (Throat) Negative Normal [facility]; [facility] Work Phone: S. pyogenes Ag IA Ql (Unsp spec) Negative Normal [facility] Work Phone: VARICELLA-ZOSTER ANTBODY (11 727)on 09-11-2016 VZV IgG IA Qn (S) 3001 {index} Normal Compr [facility] Work Phone: Comment on above: Negative <135 Equivo tristin 135 - 165 Positive >165 A positive result generally indicates exposure to the pathogen or administration of specific immunoglobulins, but it is not indication of active infection or stage of disease. PATIENT NOT FASTINGP ERFORMED BY: [facility] Utmugf9676 [facility] [id number] Information: [id number], [id number] NuSwab STD (trich/BV/GC/clemente W/ Herpes) (29777)on 08-25-2016 A. vaginae DNA ZULEMA+probe Ql (Vag fld) Low - 0 [facility] Work Phone: Comment on above: PATIENT NOT FASTINGP ERFORMED BY: [facility] Ojbpcabwuc1720 [facility] [id number] Information: SRC:[place] Bacterial vaginosis associated bacterium 2 DNA ZULEMA+probe Ql (Vag fld) Low - 0 Normal [facility] Work Phone: Comment on above: PATIENT NOT FASTINGP ERFORMED BY: [address] [id number] Information: SRC:[place] C. albicans DNA ZULEMA+probe Ql (Vag fld) Negative Normal [facility]pre[facility] Internal [facility] Work Phone: Comment on above: PATIENT NOT FASTINGP ERFORMED BY: [address] [id number] Information: SRC:[place] C. glabrata DNA ZULEMA+probe Ql (Vag fld) Negative Normal [facility] Work Phone: Comment on above: This test was develo ped and its performance characteristics determinedby [facility]. It has not been cleared or approved by the Food and DrugAdministration. The FDA has determined that such clearance orapproval is not necessary. PATIENT NOT FASTINGP ERFORMED BY: [address] [id number] Information: SRC:[place] C. trachomatis rRNA ZULEMA+probe Ql (Unsp spec) Negative Normal [facility] Work Phone: Comment on above: PATIENT NOT FASTINGP ERFORMED BY: [address] [id number] Information: SRC:[place] HSV 1 DNA ZULEMA+probe Ql (Unsp spec) Negative Normal [facility] Work Phone: Comment on above: PATIENT NOT FASTINGP ERFORMED BY: [address] [id number] Information: SRC:[place] HSV 2 DNA ZULEMA+probe Ql (Unsp spec) Negative Normal [facility] Work Phone: Comment on above: PATIENT NOT FASTINGP ERFORMED BY: [address] [id number] Information: SRC:[place] Megasphaera sp type 1 DNA ZULEMA+probe Ql (Vag fld) Low - 0 Normal [facility] Work Phone: Comment on above: Calculate total scor e by adding the 3 individual bacterialvaginosis (BV) marker scores together. Total score isinterpreted as follows:Total score 0-1: Indicates the absence of BV.Total score 2: Indeterminate for BV. Additional clinical data should be evaluated to establish a diagnosis.Total score 3-6: Indicates the presence of BV. .This test was developed and its performance characteristicsdetermined by [employer]. It has not been cleared or approvedby the Food and Drug Administration. The FDA has determinedthat such clearance or approval is not necessary. PATIENT NOT FASTINGP ERFORMED BY: [address] [id number] Information: SRC:VA N. gonorrhoeae rRNA ZULEMA+probe Ql (Unsp spec) Negative Normal [facility] Work Phone: Comment on above: PATIENT NOT FASTINGP ERFORMED BY: [address] [id number] Information: SRC:VA T. vaginalis rRNA ZULEMA+probe Ql (Unsp spec) Negative Normal [facility] Work Phone: Comment on above: PATIENT NOT FASTINGP ERFORMED BY: [address] [id number] Information: SRC:HI NuSwab STD (trich/BV/GC/clemente W/ Herpes) ([id number])Ordered By: Grants Analyst on 08-25-2016 C. albicans DNA ZULEMA+probe Ql (Vag fld) Negative Normal [facility]; [facility] Work Phone: Comment on above: PATIENT NOT FASTINGP ERFORMED BY: [address] [id number] Information: SRC:VA C. glabrata DNA ZULEMA+probe Ql (Vag fld) Negative Normal [facility]; [facility] Work Phone: Comment on above: This test was develo ped and its performance characteristics determinedby [facility]. It has not been cleared or approved by the Food and DrugAdministration. The FDA has determined that such clearance orapproval is not necessary. PATIENT NOT FASTINGP ERFORMED BY: [address] [id number] Information: SRC:VA C. trachomatis rRNA ZULEMA+probe Ql (Unsp spec) Negative Normal [facility]; [facility] Work Phone: Comment on above: PATIENT NOT FASTINGP ERFORMED BY: [address] [id number] Information: SRC:HI HSV 1 DNA ZULEMA+probe Ql (Unsp spec) Negative Normal [facility]; [facility] Work Phone: Comment on above: PATIENT NOT FASTINGP ERFORMED BY: [address] [id number] Information: SRC:VA HSV 2 DNA ZULEMA+probe Ql (Unsp spec) Negative Normal [facility]; [facility] Work Phone: Comment on above: PATIENT NOT FASTINGP ERFORMED BY: [address] [id number] Information: SRC:VA N. gonorrhoeae rRNA ZULEMA+probe Ql (Unsp spec) Negative Normal [facility]; [facility] Work Phone: Comment on above: PATIENT NOT FASTINGP ERFORMED BY: [address] [id number] Information: SRC:VA T. vaginalis rRNA ZULEMA+probe Ql (Unsp spec) Negative Normal [facility]; [facility] Work Phone: Comment on above: PATIENT NOT FASTINGP ERFORMED BY: [address] [id number] Information: SRC:HI Pap IG (Image Guided)on 08-09 Microscopic observation Other stain Nom (Unsp spec) . Normal Comprehens [facility] Work Phone: Comment on above: Source.............C ervix;EndocervixNo. of containers..01 CYTYC Thin Prep VialPATIENT NOT FASTINGPERFORMED BY: =[facility] [address] [id number] BY: WB [facility] [address] [id number] Pathology report final diagnosis Narrative SPRCS Normal Comprehensiv e [facility] Work Phone: Comment on above: NEGATIVE FOR INTRAEP ITHELIAL LESION AND MALIGNANCY.Satisfactory for evaluation. No endocervical component is identified.[id number] Can, Membership Sales Manager ([facility]) Source.............C ervix;EndocervixNo. of containers..01 CYTYC Thin Prep VialPATIENT NOT FASTINGPERFORMED BY: =G [employer] [id number] BY: [employer] Zwt[address] [id number] Pap IG (Image Guided) PAPSMR Normal [facility] Work Phone: Comment on above: The Pap smear is a s creening test designed to aid in the detection ofpremalignant and malignant conditions of the uterine cervix. It is not adiagnostic procedure and should not be used as the sole means of detectingcervical cancer. Both false-positive and false-negative reports do occur. .This liquid based ThinPrep(R) pap test was screened with theuse of an image guided system. Source.............C ervix;EndocervixNo. of containers..01 CYTYC Thin Prep VialPATIENT NOT FASTINGPERFORMED BY: =G [employer] [place] [address] [id number] BY: [employer] [address] [id number] Thin Prep Pap ([id number])on 08-09 Thin Prep Pap ([id number]) AGE6 Normal [facility] prehensive Internal Medicine Work Phone: Comment on above: <21 or >65 or no age provided Source.............C ervix;EndocervixNo. of containers..01 CYTYC Thin Prep VialPATIENT NOT FASTINGPERFORMED BY: =G [employer] StreetProduce RunTorrance State Hospital [id number] BY: [facility] [id number] Information: [id number] No Panel Information Group B Streptococcus Culture Group B Beta Streptococcus is not isolated. [facility] Work Phone: Vital Signs Date Time Vital Sign Value Performing Clinician Facility 04-06-2025 14:20-0400 Body height 162.56 cm Kiya Percy CLIENT SOLUTIONS SPECIALIST-C Work Phone: [facility] 04-06-2025 14:18-0400 Body mass index (BMI) [Ratio] 35.4 kg/m2 Kiya Percy CLIENT SOLUTIONS SPECIALIST-C Work Phone: [facility] 04-06-2025 14:18-0400 Body weight 93.49 kg Kiya Percy CLIENT SOLUTIONS SPECIALIST-C Work Phone: [facility] 04-06-2025 14:18-0400 Diastolic blood pressure 81 mm[Hg] Kiya Percy CLIENT SOLUTIONS SPECIALIST-C Work Phone: [facility] 04-06-2025 14:18-0400 Systolic blood pressure 126 mm[Hg] Kiya Percy CLIENT SOLUTIONS SPECIALIST-C Work Phone: [facility] 03-23-2025 13:40-0400 Body mass index (BMI) [Ratio] 35.5 kg/m2 Kiya Percy CLIENT SOLUTIONS SPECIALIST-C Work Phone: [facility] 03-23-2025 13:40-0400 Body weight 93.92 kg Kiya Percy CLIENT SOLUTIONS SPECIALIST-C Work Phone: [facility] 03-23-2025 13:40-0400 Diastolic blood pressure 81 mm[Hg] Kiya Percy CLIENT SOLUTIONS SPECIALIST-C Work Phone: [facility] 03-23-2025 13:40-0400 Systolic blood pressure 112 mm[Hg] Kiya Percy CLIENT SOLUTIONS SPECIALIST-C Work Phone: [facility] 03-09-2025 09:27-0400 Body height 162.56 cm Kiya Percy CLIENT SOLUTIONS SPECIALIST-C Work Phone: [facility] 03-09-2025 09:27-0400 Body mass index (BMI) [Ratio] 34.9 kg/m2 Kiya Percy CLIENT SOLUTIONS SPECIALIST-C Work Phone: [facility] 03-09-2025 09:27-0400 Body weight 92.24 kg Kiya Percy CLIENT SOLUTIONS SPECIALIST-C Work Phone: [facility] 03-09-2025 09:27-0400 Diastolic blood pressure 79 mm[Hg] Kiya Percy CLIENT SOLUTIONS SPECIALIST-C Work Phone: [facility] 03-09-2025 09:27-0400 Systolic blood pressure 119 mm[Hg] Kiya Percy CLIENT SOLUTIONS SPECIALIST-C Work Phone: [facility] 02-25-2025 09:45-0400 Body height 162.56 cm Kiya Percy CLIENT SOLUTIONS SPECIALIST-C Work Phone: [facility] 02-25-2025 09:45-0400 Body mass index (BMI) [Ratio] 34.5 kg/m2 Kiya Percy CLIENT SOLUTIONS SPECIALIST-C Work Phone: [facility] 02-25-2025 09:45-0400 Body weight 91.28 kg Kiya Percy CLIENT SOLUTIONS SPECIALIST-C Work Phone: [facility] 02-25-2025 09:45-0400 Diastolic blood pressure 82 mm[Hg] Kiya Percy CLIENT SOLUTIONS SPECIALIST-C Work Phone: [facility] 02-25-2025 09:45-0400 Systolic blood pressure 131 mm[Hg] Kiya Percy CLIENT SOLUTIONS SPECIALIST-C Work Phone: [facility] 02-11-2025 09:41-0400 Body height 162.56 cm Kiya Percy CLIENT SOLUTIONS SPECIALIST-C Work Phone: [facility] 02-11-2025 09:39-0400 Body mass index (BMI) [Ratio] 34.3 kg/m2 Kiya Percy CLIENT SOLUTIONS SPECIALIST-C Work Phone: [facility] 02-11-2025 09:39-0400 Body weight 90.77 kg Kiya Percy CLIENT SOLUTIONS SPECIALIST-C Work Phone: [facility] 02-11-2025 09:39-0400 Diastolic blood pressure 80 mm[Hg] Kiya Percy CLIENT SOLUTIONS SPECIALIST-C Work Phone: [facility] 02-11-2025 09:39-0400 Systolic blood pressure 127 mm[Hg] Kiya Percy CLIENT SOLUTIONS SPECIALIST-C Work Phone: [facility] 01-26-2025 09:18-0400 Body height 162.56 cm Kiya Percy CLIENT SOLUTIONS SPECIALIST-C Work Phone: [facility] 01-26-2025 09:18-0400 Body mass index (BMI) [Ratio] 33.8 kg/m2 Kiya Percy CLIENT SOLUTIONS SPECIALIST-C Work Phone: [facility] 01-26-2025 09:18-0400 Body weight 89.41 kg Kiya Percy CLIENT SOLUTIONS SPECIALIST-C Work Phone: [facility] 01-26-2025 09:18-0400 Diastolic blood pressure 76 mm[Hg] Kiya Percy CLIENT SOLUTIONS SPECIALIST-C Work Phone: [facility] 01-26-2025 09:18-0400 Systolic blood pressure 131 mm[Hg] Kiya Percy CLIENT SOLUTIONS SPECIALIST-C Work Phone: [facility] 12-31-2024 08:38-0400 Body height 162.56 cm Kiya Percy CLIENT SOLUTIONS SPECIALIST-C Work Phone: [facility] 12-31-2024 08:37-0400 Body mass index (BMI) [Ratio] 33 kg/m2 Kiya Percy CLIENT SOLUTIONS SPECIALIST-C Work Phone: [facility] 12-31-2024 08:37-0400 Body weight 87.31 kg Kiya Percy CLIENT SOLUTIONS SPECIALIST-C Work Phone: [facility] 12-31-2024 08:37-0400 Diastolic blood pressure 74 mm[Hg] Kiya Percy CLIENT SOLUTIONS SPECIALIST-C Work Phone: [facility] 12-31-2024 08:37-0400 Systolic blood pressure 108 mm[Hg] Kiya Percy CLIENT SOLUTIONS SPECIALIST-C Work Phone: [facility] 12-01-2024 10:16-0400 Body height 162.56 cm Kiya Percy CLIENT SOLUTIONS SPECIALIST-C Work Phone: [facility] 12-01-2024 10:16-0400 Body mass index (BMI) [Ratio] 31.1 kg/m2 Kiya Percy CLIENT SOLUTIONS SPECIALIST-C Work Phone: [facility] 12-01-2024 10:16-0400 Body weight 82.21 kg Kiya Percy CLIENT SOLUTIONS SPECIALIST-C Work Phone: [facility] 12-01-2024 10:16-0400 Diastolic blood pressure 73 mm[Hg] Kiya Percy CLIENT SOLUTIONS SPECIALIST-C Work Phone: [facility] 12-01-2024 10:16-0400 Systolic blood pressure 137 mm[Hg] Kiya Percy CLIENT SOLUTIONS SPECIALIST-C Work Phone: [facility] 11-05-2024 08:44-0400 Body height 162.56 cm Kiya Percy CLIENT SOLUTIONS SPECIALIST-C Work Phone: [facility] 11-05-2024 08:41-0400 Body mass index (BMI) [Ratio] 30.7 kg/m2 Kiya Percy CLIENT SOLUTIONS SPECIALIST-C Work Phone: [facility] 11-05-2024 08:41-0400 Body weight 81.24 kg Kiya Percy CLIENT SOLUTIONS SPECIALIST-C Work Phone: [facility] 11-05-2024 08:41-0400 Diastolic blood pressure 85 mm[Hg] Kiya Percy CLIENT SOLUTIONS SPECIALIST-C Work Phone: [facility] 11-05-2024 08:41-0400 Systolic blood pressure 125 mm[Hg] Kiya Percy CLIENT SOLUTIONS SPECIALIST-C Work Phone: [facility] 09-29-2024 10:27-0400 Body height 162.56 cm Kiya Percy CLIENT SOLUTIONS SPECIALIST-C Work Phone: [facility] 09-29-2024 10:27-0400 Body mass index (BMI) [Ratio] 29.4 kg/m2 Kiya Percy CLIENT SOLUTIONS SPECIALIST-C Work Phone: [facility] 09-29-2024 10:27-0400 Body weight 77.67 kg Kiya Percy CLIENT SOLUTIONS SPECIALIST-C Work Phone: [facility] 09-29-2024 10:27-0400 Diastolic blood pressure 78 mm[Hg] Kiya Percy CLIENT SOLUTIONS SPECIALIST-C Work Phone: [facility] 09-29-2024 10:27-0400 Systolic blood pressure 129 mm[Hg] Kiya Percy CLIENT SOLUTIONS SPECIALIST-C Work Phone: [facility] 09-19-2022 08:17-0400 Body height 167.64 cm Lilian Sepidehrb CUSTOMER CONTACT SALES ASSOCIATE [facility]; [facility] Work Phone: 09-19-2022 08:17-0400 Body mass index (BMI) [Ratio] 24.86 kg/m2 Lilian Slarb CUSTOMER CONTACT SALES ASSOCIATE [facility]; [facility] Work Phone: 09-19-2022 08:17-0400 Body surface area Derived from formula 1.79 m2 Lilian Slarb CUSTOMER CONTACT SALES ASSOCIATE [facility]; [facility] Work Phone: 09-19-2022 08:17-0400 Body temperature 98.1 [degF] Lilian Slarb CUSTOMER CONTACT SALES ASSOCIATE [facility]; [facility] Work Phone: Comment on above: Method: Temporal 09-19-2022 08:17-0400 Body weight 69.85 kg Lilian Slarb CUSTOMER CONTACT SALES ASSOCIATE [facility]; [facility] Work Phone: 09-19-2022 08:17-0400 Diastolic blood pressure 76 mm[Hg] Lilian Slarb CUSTOMER CONTACT SALES ASSOCIATE [facility]; [facility] Work Phone: Comment on above: Patient Position: Sitting; Cuff Location : Left Arm; Cuff Size: Standard 09-19-2022 08:17-0400 Heart rate 95 /min Lilian Slarb CUSTOMER CONTACT SALES ASSOCIATE [facility]; [facility] Work Phone: Comment on above: Pattern: Regular 09-19-2022 08:17-0400 Respiratory rate 16 /min Lilian Pineda CUSTOMER CONTACT SALES ASSOCIATE [facility]; [facility] Work Phone: Comment on above: Pattern: Unlabored 09-19-2022 08:17-0400 SaO2% (BldA) [Mass fraction] 98 % Lilian Pineda CUSTOMER CONTACT SALES ASSOCIATE [facility]; [facility] Work Phone: Comment on above: Room air 09-19-2022 08:17-0400 Systolic blood pressure 114 mm[Hg] Lilian Pineda CUSTOMER CONTACT SALES ASSOCIATE [facility]; [facility] Work Phone: Comment on above: Patient Position: Sitting; Cuff Location : Left Arm; Cuff Size: Standard 02-06-2022 08:32-0400 Body temperature 97.7 [degF] CLIENT SOLUTIONS SPECIALIST-C Sowmya Rodrigueza CLIENT SOLUTIONS SPECIALIST Work Phone: [facility] Work Phone: 02-06-2022 08:32-0400 Diastolic blood pressure 86 mm[Hg] CLIENT SOLUTIONS SPECIALIST-C Sowmya Moralesesa CLIENT SOLUTIONS SPECIALIST Work Phone: [facility] Work Phone: 02-06-2022 08:32-0400 Heart rate 76 /min CLIENT SOLUTIONS SPECIALIST-C Sowmya Rodrigueza CLIENT SOLUTIONS SPECIALIST Work Phone: [facility] Work Phone: 02-06-2022 08:32-0400 Respiratory rate 16 /min CLIENT SOLUTIONS SPECIALIST-C Sowmya Moralesesa CLIENT SOLUTIONS SPECIALIST Work Phone: [facility] Work Phone: 02-06-2022 08:32-0400 SaO2% (BldA) [Mass fraction] 96 % CLIENT SOLUTIONS SPECIALIST-C Sowmya Moralesesa CLIENT SOLUTIONS SPECIALIST Work Phone: [facility] Work Phone: 02-06-2022 08:32-0400 Systolic blood pressure 128 mm[Hg] CLIENT SOLUTIONS SPECIALIST-C Sowmya Moralesesa CLIENT SOLUTIONS SPECIALIST Work Phone: [facility] Work Phone: 02-04-2022 07:12-0400 Body height 162.56 cm CLIENT SOLUTIONS SPECIALIST-C Sowmya Cidavida CLIENT SOLUTIONS SPECIALIST Work Phone: [facility] Work Phone: 02-04-2022 07:12-0400 Body mass index (BMI) [Ratio] 32.8 kg/m2 CLIENT SOLUTIONS SPECIALIST-C Sowmya Ciesa CLIENT SOLUTIONS SPECIALIST Work Phone: [facility] Work Phone: 02-04-2022 07:12-0400 Body weight 86.7 kg CLIENT SOLUTIONS SPECIALIST-C Sowmya Ciesa CLIENT SOLUTIONS SPECIALIST Work Phone: [facility] Work Phone: 02-03-2022 14:33-0400 Body mass index (BMI) [Ratio] 32.4 kg/m2 CLIENT SOLUTIONS SPECIALIST-C Sowmya Ciesa CLIENT SOLUTIONS SPECIALIST Work Phone: [facility] Work Phone: 02-03-2022 14:33-0400 Body weight 85.72 kg CLIENT SOLUTIONS SPECIALIST-C Sowmya Ciesa CLIENT SOLUTIONS SPECIALIST Work Phone: [facility] Work Phone: 02-03-2022 14:33-0400 Diastolic blood pressure 60 mm[Hg] CLIENT SOLUTIONS SPECIALIST-C Sowmya Ciesa CLIENT SOLUTIONS SPECIALIST Work Phone: [facility] Work Phone: 02-03-2022 14:33-0400 Systolic blood pressure 124 mm[Hg] CLIENT SOLUTIONS SPECIALIST-C Sowmya Ciesa CLIENT SOLUTIONS SPECIALIST Work Phone: [facility] Work Phone: 01-27-2022 10:58-0400 Body mass index (BMI) [Ratio] 32 kg/m2 CLIENT SOLUTIONS SPECIALIST-C Sowmya Ciesa CLIENT SOLUTIONS SPECIALIST Work Phone: [facility] Work Phone: 01-27-2022 10:58-0400 Body weight 84.59 kg CLIENT SOLUTIONS SPECIALIST-C Sowmya Ciesa CLIENT SOLUTIONS SPECIALIST Work Phone: [facility] Work Phone: 01-27-2022 10:58-0400 Diastolic blood pressure 76 mm[Hg] CLIENT SOLUTIONS SPECIALIST-C Sowmya Ciesa CLIENT SOLUTIONS SPECIALIST Work Phone: [facility] Work Phone: 01-27-2022 10:58-0400 Systolic blood pressure 128 mm[Hg] CLIENT SOLUTIONS SPECIALIST-C Sowmya Ciesa CLIENT SOLUTIONS SPECIALIST Work Phone: [facility] Work Phone: 01-17-2022 11:19-0400 Diastolic blood pressure 70 mm[Hg] CLIENT SOLUTIONS SPECIALIST-C Sowmya Ciesa CLIENT SOLUTIONS SPECIALIST Work Phone: [facility] Work Phone: 01-17-2022 11:19-0400 Systolic blood pressure 98 mm[Hg] CLIENT SOLUTIONS SPECIALIST-C Sowmya Ciesa CLIENT SOLUTIONS SPECIALIST Work Phone: [facility] Work Phone: 01-17-2022 11:19-0400 Body mass index (BMI) [Ratio] 31.7 kg/m2 CLIENT SOLUTIONS SPECIALIST-C Sowmya Ciesa CLIENT SOLUTIONS SPECIALIST Work Phone: [facility] Work Phone: 01-17-2022 11:19-0400 Body weight 83.91 kg CLIENT SOLUTIONS SPECIALIST-C Sowmya Ciesa CLIENT SOLUTIONS SPECIALIST Work Phone: [facility] Work Phone: 01-11-2022 08:54-0400 Body mass index (BMI) [Ratio] 31.4 kg/m2 CLIENT SOLUTIONS SPECIALIST-C Sowmya Ciesa CLIENT SOLUTIONS SPECIALIST Work Phone: [facility] Work Phone: 01-11-2022 08:54-0400 Body weight 83 kg CLIENT SOLUTIONS SPECIALIST-C Sowmya Ciesa CLIENT SOLUTIONS SPECIALIST Work Phone: [facility] Work Phone: 01-11-2022 08:54-0400 Diastolic blood pressure 82 mm[Hg] CLIENT SOLUTIONS SPECIALIST-C Sowmya Ciesa CLIENT SOLUTIONS SPECIALIST Work Phone: [facility] Work Phone: 01-11-2022 08:54-0400 Systolic blood pressure 122 mm[Hg] CLIENT SOLUTIONS SPECIALIST-C Sowmya Ciesa CLIENT SOLUTIONS SPECIALIST Work Phone: [facility] Work Phone: 01-02-2022 13:19-0400 Body height 162.56 cm CLIENT SOLUTIONS SPECIALIST-C Sowmya Ciesa CLIENT SOLUTIONS SPECIALIST Work Phone: [facility] Work Phone: 01-02-2022 13:18-0400 Body mass index (BMI) [Ratio] 30.9 kg/m2 CLIENT SOLUTIONS SPECIALIST-C Sowmya Ciesa CLIENT SOLUTIONS SPECIALIST Work Phone: [facility] Work Phone: 01-02-2022 13:18-0400 Body weight 81.64 kg CLIENT SOLUTIONS SPECIALIST-C Sowmya Carmenesa CLIENT SOLUTIONS SPECIALIST Work Phone: [facility] Work Phone: 01-02-2022 13:18-0400 Diastolic blood pressure 74 mm[Hg] CLIENT SOLUTIONS SPECIALIST-C Sowmya Moralesesa CLIENT SOLUTIONS SPECIALIST Work Phone: [facility] Work Phone: 01-02-2022 13:18-0400 Systolic blood pressure 112 mm[Hg] CLIENT SOLUTIONS SPECIALIST-C Sowmya Moralesesa CLIENT SOLUTIONS SPECIALIST Work Phone: [facility] Work Phone: 12-27-2021 09:35-0400 Body mass index (BMI) [Ratio] 30.2 kg/m2 CLIENT SOLUTIONS SPECIALIST-C Sowmya Ciesa CLIENT SOLUTIONS SPECIALIST Work Phone: [facility] Work Phone: 12-27-2021 09:35-0400 Body weight 79.83 kg CLIENT SOLUTIONS SPECIALIST-C Sowmya Ciesa CLIENT SOLUTIONS SPECIALIST Work Phone: [facility] Work Phone: 12-27-2021 09:35-0400 Diastolic blood pressure 79 mm[Hg] CLIENT SOLUTIONS SPECIALIST-C Sowmya Ciesa CLIENT SOLUTIONS SPECIALIST Work Phone: [facility] Work Phone: 12-27-2021 09:35-0400 Heart rate 107 /min CLIENT SOLUTIONS SPECIALIST-C Sowmya Rodrigueza CLIENT SOLUTIONS SPECIALIST Work Phone: [facility] Work Phone: 12-27-2021 09:35-0400 Respiratory rate 16 /min CLIENT SOLUTIONS SPECIALIST-C Sowmya Rodrigueza CLIENT SOLUTIONS SPECIALIST Work Phone: [facility] Work Phone: 12-27-2021 09:35-0400 SaO2% (BldA) [Mass fraction] 99 % CLIENT SOLUTIONS SPECIALIST-C Sowmya Rodrigueza CLIENT SOLUTIONS SPECIALIST Work Phone: [facility] Work Phone: 12-27-2021 09:35-0400 Systolic blood pressure 129 mm[Hg] CLIENT SOLUTIONS SPECIALIST-C Sowmya Rodrigueza CLIENT SOLUTIONS SPECIALIST Work Phone: [facility] Work Phone: 12-20-2021 10:39-0400 Body mass index (BMI) [Ratio] 30.2 kg/m2 CLIENT SOLUTIONS SPECIALIST-C Sowmya Rodrigueza CLIENT SOLUTIONS SPECIALIST Work Phone: [facility] Work Phone: 12-20-2021 10:39-0400 Body weight 79.88 kg CLIENT SOLUTIONS SPECIALIST-C Sowmya Rodrigueza CLIENT SOLUTIONS SPECIALIST Work Phone: [facility] Work Phone: 12-20-2021 10:39-0400 Diastolic blood pressure 64 mm[Hg] CLIENT SOLUTIONS SPECIALIST-C Sowmya Rodrigueza CLIENT SOLUTIONS SPECIALIST Work Phone: [facility] Work Phone: 12-20-2021 10:39-0400 Systolic blood pressure 132 mm[Hg] CLIENT SOLUTIONS SPECIALIST-C Sowmya Moralesesa CLIENT SOLUTIONS SPECIALIST Work Phone: [facility] Work Phone: 12-14-2021 13:28-0400 Diastolic blood pressure 70 mm[Hg] CLIENT SOLUTIONS SPECIALIST-C Sowmya Moralesesa CLIENT SOLUTIONS SPECIALIST Work Phone: [facility] Work Phone: 12-14-2021 13:28-0400 Heart rate 105 /min CLIENT SOLUTIONS SPECIALIST-C Sowmya Baldwin CLIENT SOLUTIONS SPECIALIST Work Phone: [facility] Work Phone: 12-14-2021 13:28-0400 Respiratory rate 16 /min CLIENT SOLUTIONS SPECIALIST-C Sowmya Baldwin CLIENT SOLUTIONS SPECIALIST Work Phone: [facility] Work Phone: 12-14-2021 13:28-0400 SaO2% (BldA) [Mass fraction] 98 % CLIENT SOLUTIONS SPECIALIST-C Sowmya Baldwin CLIENT SOLUTIONS SPECIALIST Work Phone: [facility] Work Phone: 12-14-2021 13:28-0400 Systolic blood pressure 115 mm[Hg] CLIENT SOLUTIONS SPECIALIST-C Sowmya Baldwni CLIENT SOLUTIONS SPECIALIST Work Phone: [facility] Work Phone: 12-14-2021 10:57-0400 Body height 162.56 cm CLIENT SOLUTIONS SPECIALIST-C Sowmya Baldwin CLIENT SOLUTIONS SPECIALIST Work Phone: [facility] Work Phone: 12-14-2021 10:57-0400 Body mass index (BMI) [Ratio] 29.5 kg/m2 CLIENT SOLUTIONS SPECIALIST-C Sowmya Baldwin CLIENT SOLUTIONS SPECIALIST Work Phone: [facility] Work Phone: 12-14-2021 10:57-0400 Body temperature 97.8 [degF] CLIENT SOLUTIONS SPECIALIST-C Sowmya Baldwin CLIENT SOLUTIONS SPECIALIST Work Phone: [facility] Work Phone: 12-14-2021 10:57-0400 Body weight 78.01 kg CLIENT SOLUTIONS SPECIALIST-C Sowmya Baldwin CLIENT SOLUTIONS SPECIALIST Work Phone: [facility] Work Phone: 12-08-2021 09:02-0400 Body mass index (BMI) [Ratio] 29.5 kg/m2 CLIENT SOLUTIONS SPECIALIST-C Sowmya Baldwin CLIENT SOLUTIONS SPECIALIST Work Phone: [facility] Work Phone: 12-08-2021 09:02-0400 Body weight 78.01 kg CLIENT SOLUTIONS SPECIALIST-C Sowmya Ciesa CLIENT SOLUTIONS SPECIALIST Work Phone: [facility] Work Phone: 12-08-2021 09:02-0400 Diastolic blood pressure 56 mm[Hg] CLIENT SOLUTIONS SPECIALIST-C Sowmya Ciesa CLIENT SOLUTIONS SPECIALIST Work Phone: [facility] Work Phone: 12-08-2021 09:02-0400 Systolic blood pressure 124 mm[Hg] CLIENT SOLUTIONS SPECIALIST-C Sowmya Ciesa CLIENT SOLUTIONS SPECIALIST Work Phone: [facility] Work Phone: 11-25-2021 09:53-0400 Body mass index (BMI) [Ratio] 29 kg/m2 CLIENT SOLUTIONS SPECIALIST-C Sowmya Ciesa CLIENT SOLUTIONS SPECIALIST Work Phone: [facility] Work Phone: 11-25-2021 09:53-0400 Body weight 76.71 kg CLIENT SOLUTIONS SPECIALIST-C Sowmya Ciesa CLIENT SOLUTIONS SPECIALIST Work Phone: [facility] Work Phone: 11-25-2021 09:53-0400 Diastolic blood pressure 70 mm[Hg] CLIENT SOLUTIONS SPECIALIST-C Sowmya Ciesa CLIENT SOLUTIONS SPECIALIST Work Phone: [facility] Work Phone: 11-25-2021 09:53-0400 Systolic blood pressure 120 mm[Hg] CLIENT SOLUTIONS SPECIALIST-C Sowmya Ciesa CLIENT SOLUTIONS SPECIALIST Work Phone: [facility] Work Phone: 11-08-2021 10:24-0400 Body mass index (BMI) [Ratio] 28.5 kg/m2 CLIENT SOLUTIONS SPECIALIST-C Sowmya Ciesa CLIENT SOLUTIONS SPECIALIST Work Phone: [facility] Work Phone: 11-08-2021 10:24-0400 Body weight 75.4 kg CLIENT SOLUTIONS SPECIALIST-C Sowmya Ciesa CLIENT SOLUTIONS SPECIALIST Work Phone: [facility] Work Phone: 11-08-2021 10:24-0400 Diastolic blood pressure 60 mm[Hg] CLIENT SOLUTIONS SPECIALIST-C Sowmya Ciesa CLIENT SOLUTIONS SPECIALIST Work Phone: [facility] Work Phone: 11-08-2021 10:24-0400 Systolic blood pressure 100 mm[Hg] CLIENT SOLUTIONS SPECIALIST-C Sowmya Ciesa CLIENT SOLUTIONS SPECIALIST Work Phone: [facility] Work Phone: 10-26-2021 08:31-0400 Body mass index (BMI) [Ratio] 28.2 kg/m2 CLIENT SOLUTIONS SPECIALIST-C Sowmya Carmenesa CLIENT SOLUTIONS SPECIALIST Work Phone: [facility] Work Phone: 10-26-2021 08:31-0400 Body weight 74.55 kg CLIENT SOLUTIONS SPECIALIST-C Sowmya Moralesesa CLIENT SOLUTIONS SPECIALIST Work Phone: [facility] Work Phone: 10-26-2021 08:31-0400 Diastolic blood pressure 70 mm[Hg] CLIENT SOLUTIONS SPECIALIST-C Sowmya Moralesesa CLIENT SOLUTIONS SPECIALIST Work Phone: [facility] Work Phone: 10-26-2021 08:31-0400 Systolic blood pressure 110 mm[Hg] CLIENT SOLUTIONS SPECIALIST-C Sowmya Moralesesa CLIENT SOLUTIONS SPECIALIST Work Phone: [facility] Work Phone: 10-26-2021 08:31-0400 Body height 162.56 cm CLIENT SOLUTIONS SPECIALIST-C Sowmya Moralesesa CLIENT SOLUTIONS SPECIALIST Work Phone: [facility] Work Phone: 10-26-2021 08:31-0400 Body mass index (BMI) [Ratio] 28.2 kg/m2 CLIENT SOLUTIONS SPECIALIST-C Sowmya Moralesesa CLIENT SOLUTIONS SPECIALIST Work Phone: [facility] Work Phone: 10-26-2021 08:31-0400 Body weight 74.55 kg CLIENT SOLUTIONS SPECIALIST-C Sowmya Moralesesa CLIENT SOLUTIONS SPECIALIST Work Phone: [facility] Work Phone: 10-26-2021 08:31-0400 Diastolic blood pressure 70 mm[Hg] CLIENT SOLUTIONS SPECIALIST-C Sowmya Ciesa CLIENT SOLUTIONS SPECIALIST Work Phone: [facility] Work Phone: 10-26-2021 08:31-0400 Systolic blood pressure 110 mm[Hg] CLIENT SOLUTIONS SPECIALIST-C Sowmya Rodrigueza CLIENT SOLUTIONS SPECIALIST Work Phone: [facility] Work Phone: 09-23-2021 09:45-0400 Body mass index (BMI) [Ratio] 26.6 kg/m2 CLIENT SOLUTIONS SPECIALIST-C Sowmya Rodrigueza CLIENT SOLUTIONS SPECIALIST Work Phone: [facility] Work Phone: 09-23-2021 09:45-0400 Body weight 70.36 kg CLIENT SOLUTIONS SPECIALIST-C Sowmya Rodrigueza CLIENT SOLUTIONS SPECIALIST Work Phone: [facility] Work Phone: 09-23-2021 09:45-0400 Diastolic blood pressure 70 mm[Hg] CLIENT SOLUTIONS SPECIALIST-C Sowmya Moralesesa CLIENT SOLUTIONS SPECIALIST Work Phone: [facility] Work Phone: 09-23-2021 09:45-0400 Systolic blood pressure 130 mm[Hg] CLIENT SOLUTIONS SPECIALIST-C Sowmya Rodrigueza CLIENT SOLUTIONS SPECIALIST Work Phone: [facility] Work Phone: 08-23-2021 08:52-0400 Body mass index (BMI) [Ratio] 25.6 kg/m2 CLIENT SOLUTIONS SPECIALIST-C Sowmya Rodrigueza CLIENT SOLUTIONS SPECIALIST Work Phone: [facility] Work Phone: 08-23-2021 08:52-0400 Body weight 67.75 kg CLIENT SOLUTIONS SPECIALIST-C Sowmya Rodrigueza CLIENT SOLUTIONS SPECIALIST Work Phone: [facility] Work Phone: 08-23-2021 08:52-0400 Diastolic blood pressure 80 mm[Hg] CLIENT SOLUTIONS SPECIALIST-C Sowmya Moralesesa CLIENT SOLUTIONS SPECIALIST Work Phone: [facility] Work Phone: 08-23-2021 08:52-0400 Systolic blood pressure 110 mm[Hg] CLIENT SOLUTIONS SPECIALIST-C Sowmya Rodrigueza CLIENT SOLUTIONS SPECIALIST Work Phone: [facility] Work Phone: 08-23-2021 08:52-0400 Body mass index (BMI) [Ratio] 25.6 kg/m2 CLIENT SOLUTIONS SPECIALIST-C Sowmya Ciesa CLIENT SOLUTIONS SPECIALIST Work Phone: [facility] Work Phone: 08-23-2021 08:52-0400 Body weight 67.75 kg CLIENT SOLUTIONS SPECIALIST-C Sowmya Ciesa CLIENT SOLUTIONS SPECIALIST Work Phone: [facility] Work Phone: 08-23-2021 08:52-0400 Diastolic blood pressure 80 mm[Hg] CLIENT SOLUTIONS SPECIALIST-C Sowmya Ciesa CLIENT SOLUTIONS SPECIALIST Work Phone: [facility] Work Phone: 08-23-2021 08:52-0400 Systolic blood pressure 110 mm[Hg] CLIENT SOLUTIONS SPECIALIST-C Sowmya Ciesa CLIENT SOLUTIONS SPECIALIST Work Phone: [facility] Work Phone: 07-26-2021 08:02-0500 Body mass index (BMI) [Ratio] 25 kg/m2 CLIENT SOLUTIONS SPECIALIST-C Sowmya Ciesa CLIENT SOLUTIONS SPECIALIST Work Phone: [facility] Work Phone: 07-26-2021 08:02-0500 Body weight 66.28 kg CLIENT SOLUTIONS SPECIALIST-C Sowmya Ciesa CLIENT SOLUTIONS SPECIALIST Work Phone: [facility] Work Phone: 07-26-2021 08:02-0500 Diastolic blood pressure 80 mm[Hg] CLIENT SOLUTIONS SPECIALIST-C Sowmya Ciesa CLIENT SOLUTIONS SPECIALIST Work Phone: [facility] Work Phone: 07-26-2021 08:02-0500 Systolic blood pressure 124 mm[Hg] CLIENT SOLUTIONS SPECIALIST-C Sowmya Ciesa CLIENT SOLUTIONS SPECIALIST Work Phone: [facility] Work Phone: 06-30-2021 09:17-0500 Body mass index (BMI) [Ratio] 25 kg/m2 CLIENT SOLUTIONS SPECIALIST-C Sowmya Ciesa CLIENT SOLUTIONS SPECIALIST Work Phone: [facility] Work Phone: 06-30-2021 09:17-0500 Body weight 66.28 kg CLIENT SOLUTIONS SPECIALIST-C Sowmya Baldwin CLIENT SOLUTIONS SPECIALIST Work Phone: [facility] Work Phone: 06-30-2021 09:17-0500 Diastolic blood pressure 90 mm[Hg] CLIENT SOLUTIONS SPECIALIST-C Sowmya Baldwin CLIENT SOLUTIONS SPECIALIST Work Phone: [facility] Work Phone: 06-30-2021 09:17-0500 Systolic blood pressure 140 mm[Hg] CLIENT SOLUTIONS SPECIALIST-C Sowmya Rodrigueza CLIENT SOLUTIONS SPECIALIST Work Phone: [facility] Work Phone: 08-09-2020 11:01-0500 BMI (Body Mass Index) 22.11 kg/m2 Rosalino Ramírez LPN [facility]; [facility] Work Phone: 08-09-2020 11:01-0500 Body Temperature 97.7 [degF] Rosalino Ramírez LPN [facility]; [facility] Work Phone: Comment on above: Method: Infrared 08-09-2020 11:01-0500 Body weight 62.14 kg Rosalino Ramírez LPN [facility]; [facility] Work Phone: 08-09-2020 11:01-0500 BP Diastolic 58 mm[Hg] Rosalino Ramírez LPN [facility]; [facility] Work Phone: Comment on above: Patient Position: Sitting; Cuff Location : Left Arm; Cuff Size: Standard 08-09-2020 11:01-0500 BP Systolic 94 mm[Hg] Rosalino Ramírez LPN [facility]; [facility] Work Phone: Comment on above: Patient Position: Sitting; Cuff Location : Left Arm; Cuff Size: Standard 08-09-2020 11:01-0500 BSA (Body Surface Area) 1.7 m2 Rosalino Ramírez LPN [facility]; [facility] Work Phone: 08-09-2020 11:01-0500 Height 167.64 cm Rosalino Ramírez LPN [facility]; [facility] Work Phone: 08-09-2020 11:01-0500 Pulse (Heart Rate) 101 /min Rosalino Ramírez LPN [facility]; [facility] Work Phone: Comment on above: Pattern: Regular 08-09-2020 11:01-0500 Pulse Oximetry 99 % Sowmya Baldwin [facility] Work Phone: Comment on above: Room air 08-09-2020 11:01-0500 Respiratory Rate 16 /min Rosalino Ramírez LPN [facility]; [facility] Work Phone: Comment on above: Pattern: Unlabored 08-09-2020 11:01-0500 SaO2% (BldA) [Mass fraction] 99 % Rosalino Ramírez LPN [facility]; [facility] Work Phone: Comment on above: Room air 06-16-2019 08:49-0500 BMI (Body Mass Index) 23.41 kg/m2 Rosalino Ramírez LPN [facility]; [facility] Work Phone: 06-16-2019 08:49-0500 Body Temperature 98.2 [degF] Rosalino Ramírez LPN [facility]; [facility] Work Phone: Comment on above: Method: Temporal 06-16-2019 08:49-0500 Body weight 65.78 kg Rosalino Ramírez LPN [facility]; [facility] Work Phone: 06-16-2019 08:49-0500 BP Diastolic 80 mm[Hg] Rosalino Ramírez LPN [facility]; [facility] Work Phone: Comment on above: Patient Position: Sitting; Cuff Location : Left Arm; Cuff Size: Standard 06-16-2019 08:49-0500 BP Systolic 120 mm[Hg] Rosalino Ramírez LPN [facility]; [facility] Work Phone: Comment on above: Patient Position: Sitting; Cuff Location : Left Arm; Cuff Size: Standard 06-16-2019 08:49-0500 BSA (Body Surface Area) 1.74 m2 Rosalino Ramírez LPN [facility]; [facility] Work Phone: 06-16-2019 08:49-0500 Height 167.64 cm Rosalino Ramírez LPN [facility]; [facility] Work Phone: 06-16-2019 08:49-0500 Pulse (Heart Rate) 103 /min Rosalino Ramírez LPN [facility]; [facility] Work Phone: Comment on above: Pattern: Regular 06-16-2019 08:49-0500 Pulse Oximetry 98 % Sowmya Baldwin [facility]; [facility] Work Phone: Comment on above: Room air 06-16-2019 08:49-0500 Respiratory Rate 16 /min Rosalino Ramírez LPN [facility]; [facility] Work Phone: Comment on above: Pattern: Unlabored 06-16-2019 08:49-0500 SaO2% (BldA) [Mass fraction] 98 % Rosalino Ramírez LPN [facility]; [facility] Work Phone: Comment on above: Room air 06-10-2018 08:39-0500 BMI (Body Mass Index) 23.95 kg/m2 Ele Osorio [facility] Work Phone: 06-10-2018 08:39-0500 Body Temperature 98.4 [degF] Ele Roselear [facility] Work Phone: Comment on above: Method: Temporal 06-10-2018 08:39-0500 Body weight 67.3 kg Ele Osorio [facility] Work Phone: 06-10-2018 08:39-0500 BP Diastolic 78 mm[Hg] Ele Jo [facility] Work Phone: Comment on above: Patient Position: Sitting; Cuff Location : Left Arm; Cuff Size: Standard 06-10-2018 08:39-0500 BP Systolic 132 mm[Hg] Ele Osorio [facility] Work Phone: Comment on above: Patient Position: Sitting; Cuff Location : Left Arm; Cuff Size: Standard 06-10-2018 08:39-0500 BSA (Body Surface Area) 1.76 m2 Ele Osorio [facility] Work Phone: 06-10-2018 08:39-0500 Height 167.64 cm Ele Osorio [facility] Work Phone: 06-10-2018 08:39-0500 Pulse (Heart Rate) 113 /min Ele Osorio [facility] Work Phone: Comment on above: Pattern: Regular 06-10-2018 08:39-0500 Pulse Oximetry 98 % Sowmya Denny [facility] Work Phone: Comment on above: Room air 06-10-2018 08:39-0500 Respiratory Rate 16 /min Ele Osorio [facility] Work Phone: Comment on above: Pattern: Unlabored 06-10-2018 08:39-0500 SaO2% (BldA) [Mass fraction] 98 % Ele Osorio [facility]; [facility] Work Phone: Comment on above: Room air 05-23-2017 11:38-0500 BMI (Body Mass Index) 20.01 kg/m2 Katelyn Aburto [facility] Work Phone: 05-23-2017 11:38-0500 Body weight 56.25 kg [facility]: 05-23-2017 11:38-0500 BP Diastolic 70 mm[Hg] Katelyn Aburto [facility] Work Phone: Comment on above: Patient Position: Sitting; Cuff Location : Left Arm; Cuff Size: Standard 05-23-2017 11:38-0500 BP Systolic 115 mm[Hg] [facility]: Comment on above: Patient Position: Sitting; Cuff Location : Left Arm; Cuff Size: Standard 05-23-2017 11:38-0500 BSA (Body Surface Area) 1.63 m2 [facility] Work Phone: 05-23-2017 11:38-0500 Height 167.64 cm [facility] Work Phone: 05-23-2017 11:38-0500 Pulse (Heart Rate) 82 /min Katelyn Aburto [facility] Work Phone: Comment on above: Pattern: Regular 05-23-2017 11:38-0500 Pulse Oximetry 98 % Sowmya Baldwin [facility] Work Phone: Comment on above: Room air 05-23-2017 11:38-0500 Respiratory Rate 16 /min Katelyn Aburto [facility] Work Phone: Comment on above: Pattern: Unlabored 05-23-2017 11:38-0500 SaO2% (BldA) [Mass fraction] 98 % Katelyn Aburto [facility] Work Phone: Comment on above: Room air 08-25-2016 10:24-0400 BMI (Body Mass Index) 20.01 kg/m2 Lilian Slarb CUSTOMER CONTACT SALES ASSOCIATE [facility] Work Phone: 08-25-2016 10:24-0400 Body Temperature 98.3 [degF] Lilian Slarb CUSTOMER CONTACT SALES ASSOCIATE [facility] Work Phone: 08-25-2016 10:24-0400 Body weight 56.25 kg Lilian Slarb CUSTOMER CONTACT SALES ASSOCIATE [facility] Work Phone: 08-25-2016 10:24-0400 BP Diastolic 78 mm[Hg] Lilian Slarb CUSTOMER CONTACT SALES ASSOCIATE [facility] Work Phone: Comment on above: Patient Position: Sitting; Cuff Location : Left Arm; Cuff Size: Standard 08-25-2016 10:24-0400 BP Systolic 118 mm[Hg] Lilian Slarb CUSTOMER CONTACT SALES ASSOCIATE [facility] Work Phone: Comment on above: Patient Position: Sitting; Cuff Location : Left Arm; Cuff Size: Standard 08-25-2016 10:24-0400 BSA (Body Surface Area) 1.63 m2 Lilian Slarb CUSTOMER CONTACT SALES ASSOCIATE [facility] Work Phone: 08-25-2016 10:24-0400 Height 167.64 cm Lilian Slarb CUSTOMER CONTACT SALES ASSOCIATE [facility] Work Phone: 08-25-2016 10:24-0400 Pulse (Heart Rate) 68 /min Lilian Miriam [facility] Work Phone: Comment on above: Pattern: Regular 08-25-2016 10:24-0400 Pulse Oximetry 98 % Sowmya Baldwin [facility] Work Phone: Comment on above: Room air 08-25-2016 10:24-0400 Respiratory Rate 17 /min Lilian Miriam [facility] Work Phone: Comment on above: Pattern: Unlabored 08-25-2016 10:24-0400 SaO2% (BldA) [Mass fraction] 98 % Lilian Pineda LPN [facility]; [facility] Work Phone: Comment on above: Room air Encounters Encounter Date Encounter Type Care Provider Facility Start: 04-20-2025 ambulatory [facility] Facility :[facility] Start: 04-20-2025 End: 04-20-2025 ambulatory [facility] Facility:[facility] Start: 04-14-2025 End: 04-14-2025 ambulatory Kiya Mccaskill Facility:[facility] Start: 04-06-2025 [facility]ulatory [facility] Start: 04-06-2025 End: 04-06-2025 ambulatory [facility] Facility:[facility] Start: 03-23-2025 End: 03-23-2025 Patient encounter procedure Suzanne Salazar CLIENT SOLUTIONS SPECIALIST-C -[facility] Work Phone: Start: 03-23-2025 End: 03-23-2025 ambulatory Kiya Greer CLIENT SOLUTIONS SPECIALIST-C Work Phone: -[facility] Start: 03-09-2025 End: 03-09-2025 ambulatory Kiya Greer CLIENT SOLUTIONS SPECIALIST-C Work Phone: -[facility] Start: 03-09-2025 End: 03-09-[address] Rose Mahmood DO -[facility] Work Phone: Start: 02-25-2025 End: 02-25-[address] Dorothy Lee MD -[facility] Work Phone: Start: 02-25-2025 End: 02-25-2025 ambulatory Kiya Greer CLIENT SOLUTIONS SPECIALIST-C Work Phone: [facility] Start: 02-11-2025 End: 02-11-[address] Rose Mahmood DO -[facility] Work Phone: Start: 02-11-2025 End: 02-11-2025 ambulatory Kiya Greer CLIENT SOLUTIONS SPECIALIST-C Work Phone: [facility] Start: 01-26-2025 End: 01-26-[address] Dorothy Lee MD -[facility] Work Phone: Start: 01-26-2025 End: 01-26-2025 ambulatory Kiya Greer CLIENT SOLUTIONS SPECIALIST-C Work Phone: [facility] Start: 01-26-2025 End: 01-26-2025 ambulatory Kiya Greer Facility:[facility] Start: 12-31-2024 End: 12-31-[address] Rose Mahmood DO -[facility] Work Phone: Start: 12-31-2024 End: 12-31-2024 ambulatory Kiya Greer CLIENT SOLUTIONS SPECIALIST-C Work Phone: [facility] Start: 12-15-2024 End: 12-15-2024 ambulatory NO PRIMARY CARE [facility] Start: 12-01-2024 End: 12-01-2024 ambulatory NO PRIMARY CARE [facility] Start: 12-01-2024 End: 12-01-[address] Dorothy Lee MD -[facility] Work Phone: Start: 12-01-2024 End: 12-01-2024 ambulatory Kiya Greer CLIENT SOLUTIONS SPECIALIST-C Work Phone: [facility] Work Phone: Start: 11-05-2024 End: 11-05-[address] Rose Mahmood DO -[facility] Work Phone: Start: 11-05-2024 End: 11-05-2024 ambulatory Kiya Percy CLIENT SOLUTIONS SPECIALIST-C Work Phone: [facility] Work Phone: Start: 11-05-2024 End: 11-05-2024 ambulatory Kiya Greer Facility:[facility] Start: 09-29-2024 End: 09-29-2024 ambulatory Kiya Greer CLIENT SOLUTIONS SPECIALIST-C Work Phone: [facility] Work Phone: Start: 09-29-2024 End: 09-29-[address] Dorothy Lee MD -Laboratory, Specimen Work Phone: Start: 09-29-2024 End: 09-29-[address] Dorothy Lee MD -[facility] Work Phone: Start: 09-29-2024 End: 09-29-2024 ambulatory Kiya Greer Facility:[facility] Start: 09-29-2024 End: 09-29-2024 ambulatory Dorothy Lee Facility:[facility] Start: 04-28-2024 End: 04-28-2024 ambulatory Kiya Greer Facility:[facility] Start: 04-28-2024 End: 04-28-2024 ambulatory Suzanne Salazar CLIENT SOLUTIONS SPECIALIST Facility:[facility] Start: 09-19-2022 ambulatory Kiya Greer MICROBIOLOGY PROFESSOR [facility] Start: 09-19-2022 End: 10-09-2022 Periodic preventive med est patient 18-39 yrs Kiya Greer MICROBIOLOGY PROFESSOR Work Phone: [facility] Start: 09-19-2022 Review Kiya Greer MICROBIOLOGY PROFESSOR Work Phone: [facility] Start: 02-06-2022 Non-patient / Non-visit CLIENT SOLUTIONS SPECIALIST-C Sowmya Baldwin CLIENT SOLUTIONS SPECIALIST Work Phone: [facility] Start: 02-05-2022 Non-patient / Non-visit CLIENT SOLUTIONS SPECIALIST-C Sowmya Rodrigueza CLIENT SOLUTIONS SPECIALIST Work Phone: [facility] Start: 02-04-2022 Non-patient / Non-visit CLIENT SOLUTIONS SPECIALIST-C Sowmya Rodrigueza CLIENT SOLUTIONS SPECIALIST Work Phone: [facility] Start: 02-04-2022 End: 02-06-2022 Evaluation and management of inpatient CLIENT SOLUTIONS SPECIALIST-C Sowmya Rodrigueza CLIENT SOLUTIONS SPECIALIST [facility] Start: 02-03-2022 End: 02-03-2022 Patient encounter procedure CLIENT SOLUTIONS SPECIALIST-C Sowmya Rodrigueza CLIENT SOLUTIONS SPECIALIST Work Phone: [facility] Start: 01-27-2022 End: 01-27-2022 Patient encounter procedure CLIENT SOLUTIONS SPECIALIST-C Sowmya Rodrigueza CLIENT SOLUTIONS SPECIALIST Work Phone: [facility] Start: 01-17-2022 End: 01-17-2022 Patient encounter procedure CLIENT SOLUTIONS SPECIALIST-C Sowmya Rodrigueza CLIENT SOLUTIONS SPECIALIST Work Phone: [facility] Start: 01-17-2022 End: 01-17-2022 Patient encounter procedure CLIENT SOLUTIONS SPECIALIST-C Sowmya Rodrigueza CLIENT SOLUTIONS SPECIALIST Work Phone: [facility] Start: 01-11-2022 End: 01-11-2022 Patient encounter procedure CLIENT SOLUTIONS SPECIALIST-C Sowmya Rodrigueza CLIENT SOLUTIONS SPECIALIST Work Phone: [facility] Start: 01-04-2022 Non-patient / Non-visit CLIENT SOLUTIONS SPECIALIST-C Sowmya Rodrigueza CLIENT SOLUTIONS SPECIALIST Work Phone: [facility] Start: 01-04-2022 End: 01-04-2022 Patient encounter procedure CLIENT SOLUTIONS SPECIALIST-C Sowmya Rodrigueza CLIENT SOLUTIONS SPECIALIST Work Phone: [facility] Start: 01-03-2022 End: 01-03-2022 Patient encounter procedure CLIENT SOLUTIONS SPECIALIST-C Sowmya Ciesa CLIENT SOLUTIONS SPECIALIST Work Phone: [facility]-Laboratory, Specimen Start: 01-02-2022 End: 01-02-2022 Patient encounter procedure CLIENT SOLUTIONS SPECIALIST-C Sowmya Rodrigueza CLIENT SOLUTIONS SPECIALIST Work Phone: [facility] Start: 12-27-2021 End: 12-27-2021 Patient encounter procedure CLIENT SOLUTIONS SPECIALIST-C Sowmya Rodrigueza CLIENT SOLUTIONS SPECIALIST Work Phone: [facility] Start: 12-20-2021 Non-patient / Non-visit CLIENT SOLUTIONS SPECIALIST-C Sowmya Rodrigueza CLIENT SOLUTIONS SPECIALIST Work Phone: [facility] Start: 12-20-2021 End: 12-20-2021 Patient encounter procedure CLIENT SOLUTIONS SPECIALIST-C Sowmya Rodrigueza CLIENT SOLUTIONS SPECIALIST Work Phone: [facility] Start: 12-14-2021 End: 12-14-2021 Patient encounter procedure CLIENT SOLUTIONS SPECIALIST-C Sowmya Rodriguezfranky CLIENT SOLUTIONS SPECIALIST Work Phone: [facility] Start: 12-14-2021 End: 12-14-2021 Emergency department patient visit CLIENT SOLUTIONS SPECIALIST-C Sowmya Rodrigueza CLIENT SOLUTIONS SPECIALIST Work Phone: [facility]-Emergency Department Start: 12-08-2021 End: 12-08-2021 Patient encounter procedure CLIENT SOLUTIONS SPECIALIST-C Sowmya Rodrigueza CLIENT SOLUTIONS SPECIALIST Work Phone: [facility] Start: 11-25-2021 End: 11-25-2021 Patient encounter procedure CLIENT SOLUTIONS SPECIALIST-C Sowmya Rodrigueza CLIENT SOLUTIONS SPECIALIST Work Phone: [facility] Start: 11-08-2021 End: 11-08-2021 Patient encounter procedure CLIENT SOLUTIONS SPECIALIST-C Sowmya Rodrigueza CLIENT SOLUTIONS SPECIALIST Work Phone: [facility] Start: 10-26-2021 End: 10-26-2021 Patient encounter procedure CLIENT SOLUTIONS SPECIALIST-C Sowmya Rodrigueza CLIENT SOLUTIONS SPECIALIST Work Phone: [facility] Start: 09-23-2021 End: 09-23-2021 Patient encounter procedure CLIENT SOLUTIONS SPECIALIST-C Sowmya Baldwin CLIENT SOLUTIONS SPECIALIST Work Phone: [facility] Start: 08-23-2021 End: 08-23-2021 Patient encounter procedure CLIENT SOLUTIONS SPECIALIST-C Sowmya Baldwin CLIENT SOLUTIONS SPECIALIST Work Phone: [facility] Start: 07-26-2021 End: 07-26-2021 Patient encounter procedure CLIENT SOLUTIONS SPECIALIST-C Sowmya Baldwin CLIENT SOLUTIONS SPECIALIST Work Phone: [facility] Start: 06-30-2021 End: 06-30-2021 Patient encounter procedure CLIENT SOLUTIONS SPECIALIST-C Sowmya Baldwin CLIENT SOLUTIONS SPECIALIST Work Phone: [facility] Start: 06-30-2021 End: 06-30-2021 Patient encounter procedure CLIENT SOLUTIONS SPECIALIST-C Sowmya Baldwin CLIENT SOLUTIONS SPECIALIST Work Phone: [facility] Start: 08-09-2020 End: 08-09-2020 Patient encounter procedure Rosalino Ramírez LPN [facility] Work Phone: Start: 08-09-2020 End: 08-09-2020 Periodic preventive med est patient 18-39 yrs Somwya Baldwin [facility] Start: 06-16-2019 End: 06-16-2019 Patient encounter procedure Kiya Greer MICROBIOLOGY PROFESSOR Work Phone: [facility] Start: 06-16-2019 End: 06-16-2019 Periodic preventive med est patient 18-39 yrs Sowmya Baldwin [facility] Start: 06-10-2018 End: 06-10-2018 Patient encounter procedure Kiya Greer MICROBIOLOGY PROFESSOR Work Phone: [facility] Start: 06-10-2018 End: 06-10-2018 Periodic preventive med est patient 18-39 yrs Sowmya Denny [facility] Start: 05-23-2017 End: 05-23-2017 Office outpatient visit 15 minutes Sowmya Baldwin [facility] Start: 09-11-2016 End: 09-11-2016 Annotation/Addendum Sowmya Baldwin [facility] Start: 08-25-2016 End: 08-25-2016 Office outpatient new 30 minutes Sowmya Baldwin [facility] Start: 08-25-2016 End: 08-25-2016 Patient encounter procedure Kiya Greer MICROBIOLOGY PROFESSOR Work Phone: [facility] End: 09-19-2022 Patient encounter procedure Lilian Pineda CUSTOMER CONTACT SALES ASSOCIATE [facility] Work Phone: Procedures Date Procedure Procedure Detail Performing Clinician Start: 01-26-2025 Serologic test for syphilis Kiya Greer CLIENT SOLUTIONS SPECIALIST-C Work Phone: Start: 11-05-2024 Hepatitis C antibody measurement Kiya Greer CLIENT SOLUTIONS SPECIALIST-C Work Phone: Comment on above: Reactive: Presumptive evidence of antibo dies to HCV. Follow CDC recommendations for supplemental testing.Non-Reactive: Antibodies to HCV were not detected; does not exclude the possibility of exposure to HCVReactive Results are presumptive evidence of antibodies to HCV. Follow CDC recommendations for supplemental testing.Order confirmation testing: HCV Quant by PCR testing - HCVPCR lc#[id number] Non Reactive: < 0.8 Equivocal: >/= 0.8 to < 1.0 Reactive: >/= 1.0The CDC requires that a reactive/equivocal HCV antibody result be sent out for confirmation. HCV Quant by PCR testing. Start: 11-05-2024 Rubella IgG measurement Kiya Greer CLIENT SOLUTIONS SPECIALIST-C Work Phone: Comment on above: Antibody Result: InterpretationNon-React marie: Non-ImmuneReactive: ImmuneThe following results were obtained with the [employer] Rubella IgG assay. Results from assays of other manufacturers cannot be used interchangeably. Start: 11-05-2024 Serologic test for syphilis Kiya Greer CLIENT SOLUTIONS SPECIALIST-C Work Phone: Start: 09-29-2024 Urine culture Kiya Greer CLIENT SOLUTIONS SPECIALIST-C Work Phone: Start: 03-20-2022 End: 03-20-2022 Interactive Developer Office Visit Report Procedure Note: See Note; NOTES: [facility] [address] [place] [address] OFFICE VISIT Date of Service: 03/20/22 MR#: [id number] Acct: [id number] Name: MARTIN CASTELLANOS Rep #: [id number] : 1995 Provider: Dr. Dorothy fields MD Age/Sex: 26/F Location: [facility] [place] Status: Signed Intake Vital Signs 02/04/22 07:12 03/20/22 11:24 03/20/22 11:25 Height 5 ft 4 in 5 ft 4 in 5 ft 4 in Weight: 166 lb BMI 28.5 BP 136/82 H Intake Visit Reasons: 6wk pp, declined Chief Complaint: 6w pp declines IUD Automotive Vehicle Inspector Required: No Is patient in pain?: No Allergies Penicillins Allergy (Intermediate, Verified 02/04/22 08:35) Hives Medications multivitamin no.47-iron fum 27 mg-folate no.1 1 mg-dha 300 mg capsule (PNV-DHA) 1 cap PO Check with primary doctor 06/14/21 [History Confirmed 03/20/22] buspirone 5 mg tablet 5 mg PO BID #60 tabs 03/20/22 [Rx Confirmed 03/20/22] norethindrone (contraceptive) 0.35 mg tablet (Ortho Micronor) 0.35 mg PO DAILY #28 tabs 03/20/22 [Rx Confirmed 03/20/22] : Yes PFSH Medical History COVID-19 vaccine series completed Surgical History H/O wisdom tooth extraction Family History Mother Hypertension Grandmother Breast cancer Grandmother Hypertension Social History household members: spouse housing: house 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al status: employed 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 Date Name GA/Weeks Outcome Route Bth Weight Gen Labor Lgth Anesthesia Del Locatn Provider FOB 02/05/22 Michael 41 live - full term Female epidural [facility] Pelon audra Mobley Delivery Date: 02/05/22 Last Updated by: Ruthie Costello see problem list for complications, and 41 IOL postdates sm girl michael atony Depression Screen PHQ-2/9 PHQ-2 Over the last 2 weeks, how often have you been bothered by any of the following problems? 1. Little interest or pleasure in doing things: not at all 2. Feeling down, depressed, or hopeless: not at all Total score: 0 Post HPI 6wk pp, declined: Details: MARTIN CASTELLANOS is a 26 year old who presents for her post visit. having some anxiety but no depression symptoms Infant Feeding: Breast Menses resumed: No [place] since delivery: No Emotional Support: Yes ROS Const Reports system reviewed and no additional complaints, except as documented GI Reports system reviewed and no additional complaints, except as documented, Denies bloating, Denies constipation, Denies nausea and Denies vomiting Reports system reviewed and no additional complaints, except as documented, Denies abnormal vaginal bleeding, Denies pelvic pain, Denies sexual dysfunction, Denies urinary incontinence, Denies urinary hesitancy, Denies urinary urgency and Denies vaginal discharge Skin/Breast Reports system reviewed and no additional complaints, except as documented and Reports as per HPI Psych Reports as per HPI Exam Const General: cooperative, healthy appearing, comfortable and no acute distress HENMT Head: normal to inspection Neck Neck: normal visual inspection and no lymphadenopathy Thyroid: thyroid normal Chest Breast inspection: normal inspection of the breasts and normal inspection of the axillae Breast palpation: normal palpation of the breasts and normal palpation of the axillae Resp Effort Inspection: normal respiratory effort GI Inspection: normal to inspection Palpation: soft, no hepatosplenomegaly and nontender General: bladder normal to palpation External Female Exam: normal external appearance and normal appearance of the urethra Urethra: normal appearance of the urethra Speculum Exam - Vagina: normal appearance of the vagina and normal vaginal discharge Speculum Exam - Cervix: normal appearance of the cervix Bimanual Exam- Vagina Uterus: normal bimanual exam, uterine size normal, bladder normal to palpation, uterine shape normal and non-tender Bimanual Exam- Adnexa, other: normal adnexae and normal Pelvic Support: normal Skin General: no rashes or lesions noted Coding Level of Care Code No Charge Diagnoses Anxiety F41.9 care and examination Z39.2 Assessment and Plan Assessment and Plan (1) Anxiety: Status: Acute Comment: buspar (2) care and examination: Medications: New buspirone 5 mg PO BID 60 tabs 12RF norethindrone (contraceptive) (Ortho Micronor) start day 1 of menstrual cycle 0.35 mg PO DAILY 28 tabs 12RF Plan Cervical cancer screening: pap up to date Contraceptive plans: ocp Complications: buspar ordered Follow up for annual exams or sooner if indicated. 03/20/22 1750 <Electronically signed by Dorothy Lee MD> Date Dorothy Lee MD Cosign Signature: Date (if applicable) CC: Kiya Greer [facility] Work Phone: Start: 02-10-2022 End: 02-10-2022 /[facility] Procedure Note: See Note; NOTES: [facility] [address] [place] [address] OFFICE VISIT Date of Service: 02/09/22 MR#: [id number] Acct: [id number] Name: MARTIN CASTELLANOS LUZ Rep #: [id number] : 1995 Provider: MARIANELA vega Age/Sex: 26/F Location: [facility] Status: Signed Intake Vital Signs 02/04/22 07:12 Height 5 ft 4 in Intake Visit Reasons: Feeding Assessment/Nipple Soreness Chief Complaint: assessment, nipple pain Accompanied by: Allergies Penicillins Allergy (Intermediate, Verified 02/04/22 08:35) Hives : Yes Current gender identity: female PFSH [facility] Medical History COVID-19 vaccine series completed Surgical History H/O wisdom tooth extraction Family History Mother Hypertension Grandmother Breast cancer Grandmother Hypertension Social History household members: spouse housing: house 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 Date Name GA/Weeks Outcome Route Bth Weight Gen Labor Lgth Anesthesia Del Locatn Provider FOB 02/05/22 Michael 41 live - full term Female epidural [facility] Jesus Itz Delivery Date: 02/05/22 Last Updated by: Ruthie Costello see problem list for complications, and 41 IOL postdates sm girl michael atony HPI HPI HPI: MARTIN CASTELLANOS, is a 26 F who presents to the office today for assessment, nipple pain. History provided by the patient. ROS ROS Const Constitutional: Denies fever(s) or lethargy : Denies nipple discharge Skin Skin/Breast: Reports breast skin changes (milk came in 2 days ago, full); Denies breast pain or nipple discharge Details: q2-3 hours, 20-30 minutes, usually just nursing on one side, using nipple shield to help latch to left side d/t inverted nipple, per patient nipples are cracked, sharp pain at the beginning of the feed that will sightly improve as feed continues, has been using lanolin with minimal relief Exam Maternal Assessment Breast Assessment Bilateral Breasts: Full Nipple Assessment Right Nipple: Everted Left Nipple: Inverted Areolar Tissue Areolar Tissue: Pliable Assessment Baby Feeding History Is your baby latching onto the breast: Yes Number of Breast Feedings in 24 hours: 8-12 Minutes per breast: First Breast: 20-30 Supplements Supplement Type:: None Breast Pumping Type of Breast Pump: Spectra, Haakaa Frequency: has not started pumping Goals Breast Feeding Goals: Exclusive Exam Const General: comfortable and no acute distress Orientation: alert and oriented x3 Chest Breast inspection: normal inspection of the breasts (no redness ) Breast palpation: normal palpation of the breasts (full, no warmth) Other: bilateral nipples reddened with multiple horizontal cracks to each side of nipple, no discharge present Resp Effort Inspection: normal respiratory effort Skin General: no rashes or lesions noted Psych Appearance: grossly normal Mental Status: mental status grossly normal Affect: normal affect Assessment and Plan Assessment and Plan (1) nipple pain: Plan: Combination nipple cream ordered, patient educated on use. Assisted patient to use nipple shield to both sides when nursing to help baby latch and for comfort. Significant improvement in pain when using the shield to right side. Continue to use with each feed as needed to let nipples heal. Monitor for any other signs of infection. Follow up with PRN. (2) Care and examination of lactating mother: Plan: Educated on haakaa use and milk storage. Coding Level of Care Code Off vis,est,level 3 Diagnoses nipple pain O92.29 Care and examination of lactating mother Z39.1 02/10/22 0456 <Electronically signed by Christi Alberto NP, NP-C> Date Christi JANE Cosigner Signature: Date (if applicable) CC: Kiya Greer [facility] Work Phone: Start: 02-03-2022 End: 02-03-2022 Interactive Developer Office Visit Report Procedure Note: See Note; NOTES: [facility] [address] [place] [address] OFFICE VISIT Date of Service: 02/03/22 MR#: [id number] Acct: [id number] Name: MARTIN CASTELLANOS Rep #: [id number] : 1995 Provider: Dr. 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al status: employed 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 cut cord/dad catch: dad wants to catch and cut : yes PP control planned: unsure discussed possible routes of delivery and associated risks: risks and modes discussed special requests: portable monitoring. Specific Issue/Plans Covid status: given Flu vaccine: discussed Tdap vaccine: given 10/26/21 Rhogam: na LARC form signed: declined movement and labor precautions reviewed. Problem list reviewed and updated with the most current plan of care details and appropriate orders placed. Relevant counseling for the gestational age provided. Continue routine care and follow up unless otherwise noted in visit notes/problem list details Initial Weight: Not Recorded Date -???-???-???-???-???-???-?? ?-???-???-???-???-???- EGA Weight BP Urine Prot -???-???-???-???-???-???-?? ?-???-???-???-???-???- Glucose FHR FuHt Pres Dilation -???-???-???-???-???-???-?? ?-???-???-???-???-???- Effaced St Visit Note 06/30/21 -???-???-???-???-???-???-?? ?-???-???-???-???-???- 9w 5d 146 lb 2 oz 140/90 -???-???-???-???-???-???-?? ?-???-???-???-???-???- -???-???-???-???-???-???-?? ?-???-???-???-???-???- JV- CRL not consistent with LMP. ANJEL 01/28/22 07/26/21 -???-???-???-???-???-???-?? ?-???-???-???-???-???- 13w 3d 146 lb 2 oz 124/80 Negative -???-???-???-???-???-???-?? ?-???-???-???-???-???- Negative 157 -???-???-???-???-???-???-?? ?-???-???-???-???-???- JV- no lof, vaginal bleeding, or cramping. still has some nausea and can not tolerate chicken. declines gender/ genetic testing, 08/23/21 -???-???-???-???-???-???-?? ?-???-???-???-???-???- 17w 3d 149 lb 6 oz 110/80 Negative -???-???-???-???-???-???-?? ?-???-???-???-???-???- Negative 154 -???-???-???-???-???-???-?? ?-???-???-???-???-???- JV- no lof, vaginal bleeding, or cramping. not feeling movement yet. pt has her anatomy scan next week and is nervous about it due to a fhx of heart defect 09/23/21 -???-???-???-???-???-???-?? ?-???-???-???-???-???- 21w 6d 155 lb 2 oz 130/70 Negative -???-???-???-???-???-???-?? ?-???-???-???-???-???- Negative 150 22 -???-???-???-???-???-???-?? ?-???-???-???-???-???- Sm- no vb lo f good fm nor eular ctx 10/26/21 -???-???-???-???-???-???-?? ?-???-???-???-???-???- 26w 4d 164 lb 6 oz 110/70 Negative -???-???-???-???-???-???-?? ?-???-???-???-???-???- Negative 135 26 -???-???-???-???-???-???-?? ?-???-???-???-???-???- JV- Glucola pending. no complaints today. 11/08/21 -???-???-???-???-???-???-?? ?-???-???-???-???-???- 28w 3d 166 lb 4 oz 100/60 Negative -???-???-???-???-???-???-?? ?-???-???-???-???-???- Negative 151 28 -???-???-???-???-???-???-?? ?-???-???-???-???-???- JV- normal 2 8 week labs, no complaints today. tdap was given last visit. 11/25/21 -???-???-???-???-???-???-?? ?-???-???-???-???-???- 30w 6d 169 lb 2 oz 120/70 Negative -???-???-???-???-???-???-?? ?-???-???-???-???-???- Negative 145 31 -???-???-???-???-???-???-?? ?-???-???-???-???-???- SM- no vb lo f good fm nor egular ctx larc signed. 12/08/21 -???-???-???-???-???-???-?? ?-???-???-???-???-???- 32w 5d 172 lb 124/56 Negative -???-???-???-???-???-???-?? ?-???-???-???-???-???- Negative 140 32 -???-???-???-???-???-???-?? ?-???-???-???-???-???- SM- no vb lo f good fm no regular ctx SM- no vb lof good fm no regular c tx discussed palpitations and dizziness, change in vision with them at times. discussed supportive care and eliminating caffeine if no improvement consider cardio consult 12/20/21 -???-???-???-???-???-???-?? ?-???-???-???-???-???- 34w 3d 176 lb 2 oz 132/64 Negative -???-???-???-???-???-???-?? ?-???-???-???-???-???- Negative 188 34 -???-???-???-???-???-???-?? ?-???-???-???-???-???- -No VB, LO F. Patient now on metatoprol for tachycardia. NST today for tachycardia. -No VB, LOF. Patient now on meta toprol for tachycardia. NST today for tachycardia/reactive 01/02/22 -???-???-???-???-???-???-?? ?-???-???-???-???-???- 36w 2d 180 lb 112/74 -???-???-???-???-???-???-?? ?-???-???-???-???-???- 130 36 Cephalic 0 -???-???-???-???-???-???-?? ?-???-???-???-???-???- SM- no vb lo f good fm no regular ctx gbs done 01/11/22 -???-???-???-???-???-???-?? ?-???-???-???-???-???- 37w 4d 183 lb 122/82 Negative -???-???-???-???-???-???-?? ?-???-???-???-???-???- Negative 142 37 Cephalic 0 -???-???-???-???-???-???-?? ?-???-???-???-???-???- JV- gbs neg, no lof, vaginal bleeding, or dec fm. 01/17/22 -???-???-???-???-???-???-?? ?-???-???-???-???-???- 38w 3d 185 lb 98/70 Negative -???-???-???-???-???-???-?? ?-???-???-???-???-???- Negative 140 36 Cephalic 1.5 -???-???-???-???-???-???-?? ?-???-???-???-???-???- 50 -2 SM- no vb lof good fm n oregular ctx growth us ordered for drop in fundal height 01/27/22 -???-???-???-???-???-???-?? ?-???-???-???-???-???- 39w 6d 186 lb 8 oz 128/76 Negative -???-???-???-???-???-???-?? ?-???-???-???-???-???- Negative 145 40 Cephalic 1.5 -???-???-???-???-???-???-?? ?-???-???-???-???-???- 80 -3 JV- 41 lour[place] k IOL set up. pt prefers PM induction after full discussion. consent signed. 02/03/22 -???-???-???-???-???-???-?? ?-???-???-???-???-???- 40w 6d 189 lb 124/60 -???-???-???-???-???-???-?? ?-???-???-???-???-???- 144 Cephalic 1.5 -???-???-???-???-???-???-?? ?-???-???-???-???-???- 80 -3 JV- no lof , vaginal bleeding, or dec fm. elliott 10. ACOG First Trimester First Trimester: Desire for , Alcohol, Tobacco Cessation, Illicit/Recreational Drug/Substance Use, Intimate Partner Violence, Barriers to care, Unstable Housing, Communication Barriers, Environmental/Work Hazards, Anticipated Course of Care, Toxoplasmosis Precations, Use of Any medications, Sexual activity, Exercise, Dental Care, Sauna/Hot tub use, Seat Belt use, Childbirth classes/Hospital facilities, , Travel, Indications for Ultrasound and Screening for Aneuploidy Diagnostics Diagnostics Diagnostics: Hgb 10.5 g/dL (12.0-15.0) L Hct 32.3 % (37-47) L Details: HIV: Urine Culture: Sequential Screen: NIPT Screen: Coding Level of Care Code OB Routine Diagnoses Family history of congenital anomaly of cardiovascular system Z82.79 Supervision of normal Z34.90 Z3A.39 Weeks of gestation: 39 weeks Asthma J45.909 Seasonal allergies J30.2 Assessment and Plan Assessment and Plan (1) Family history of congenital anomaly of cardiovascular system: Status: Resolved Comment: patient's niece had TGA w/ VSD repair surgically (2) Supervision of normal : Status: Acute Comment: PRR ANJEL: 02/04/22 surprise Spouse: Itz (3) : Status: Acute Qualifiers: Weeks of gestation: 39 weeks Qualified Code(s): Z3A.39 - 39 weeks gestation of Comment: GBS Negative, declined ntd genetics and carrier, NL anatomy scan, NL growth US (4) Asthma: Status: Acute Comment: as a child, resolved. (5) Seasonal allergies: Status: Acute Comment: takes PRN OTC allergy medication 02/03/22 1508 <Electronically signed by Rose Mahmood DO> Date Rose Mahmood DO Cosigner Signature: Date (if applicable) CC: Kiya Greer CNP Work Phone: Start: 01-27-2022 End: 01-27-2022 Interactive Developer Office Visit Report Procedure Note: See Note; NOTES: [facility] [address] [place] [address] OFFICE VISIT Date of Service: 01/27/22 MR#: [id number] Acct: [id number] Name: MARTIN CASTELLANOS Rep #: [id number] : 1995 Provider: Dr. Rose Wolfe DO Age/Sex: 26/F Location: [facility] [place] Status: Signed Intake Vital Signs 01/27/22 10:56 01/27/22 10:58 Height 5 ft 4 in 5 ft 4 in Weight: 186 lb 8 oz BMI 32.0 BP 128/76 H Intake Visit Reasons: 39 WK OB Allergies Penicillins Allergy (Intermediate, Verified 01/27/22 10:58) Hives Medications multivitamin no.47-iron fum 27 mg-folate no.1 1 mg-dha 300 mg capsule (PNV-DHA) cap PO 06/14/21 [History Confirmed 01/27/22] metoprolol tartrate 25 mg tablet 25 mg PO BID #30 tabs 12/14/21 [Rx Confirmed 01/27/22] Last Menstral Period: 04/30/21 Zika: Zika virus screening: Negative : No PFSH PFSH Medical History COVID-19 vaccine series completed Surgical History H/O wisdom tooth extraction Family History Mother Hypertension Grandmother Breast cancer Grandmother Hypertension Social History household members: spouse housing: house 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al status: employed 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 cut cord/dad catch: dad wants to catch and cut : yes PP control planned: unsure discussed possible routes of delivery and associated risks: risks and modes discussed special requests: portable monitoring. Specific Issue/Plans Covid status: given Flu vaccine: discussed Tdap vaccine: given 10/26/21 Rhogam: na LARC form signed: declined movement and labor precautions reviewed. Problem list reviewed and updated with the most current plan of care details and appropriate orders placed. Relevant counseling for the gestational age provided. Continue routine care and follow up unless otherwise noted in visit notes/problem list details Initial Weight: Not Recorded Date -???-???-???-???-???-???-?? ?-???-???-???-???-???- EGA Weight BP Urine Prot -???-???-???-???-???-???-?? ?-???-???-???-???-???- Glucose FHR FuHt Pres Dilation -???-???-???-???-???-???-?? ?-???-???-???-???-???- Effaced St Visit Note 06/30/21 -???-???-???-???-???-???-?? ?-???-???-???-???-???- 9w 5d 146 lb 2 oz 140/90 -???-???-???-???-???-???-?? ?-???-???-???-???-???- -???-???-???-???-???-???-?? ?-???-???-???-???-???- JV- CRL not consistent with LMP. ANJEL 01/28/22 07/26/21 -???-???-???-???-???-???-?? ?-???-???-???-???-???- 13w 3d 146 lb 2 oz 124/80 Negative -???-???-???-???-???-???-?? ?-???-???-???-???-???- Negative 157 -???-???-???-???-???-???-?? ?-???-???-???-???-???- JV- no lof, vaginal bleeding, or cramping. still has some nausea and can not tolerate chicken. declines gender/ genetic testing, 08/23/21 -???-???-???-???-???-???-?? ?-???-???-???-???-???- 17w 3d 149 lb 6 oz 110/80 Negative -???-???-???-???-???-???-?? ?-???-???-???-???-???- Negative 154 -???-???-???-???-???-???-?? ?-???-???-???-???-???- JV- no lof, vaginal bleeding, or cramping. not feeling movement yet. pt has her anatomy scan next week and is nervous about it due to a fhx of heart defect 09/23/21 -???-???-???-???-???-???-?? ?-???-???-???-???-???- 21w 6d 155 lb 2 oz 130/70 Negative -???-???-???-???-???-???-?? ?-???-???-???-???-???- Negative 150 22 -???-???-???-???-???-???-?? ?-???-???-???-???-???- Sm- no vb lo f good fm nor eular ctx 10/26/21 -???-???-???-???-???-???-?? ?-???-???-???-???-???- 26w 4d 164 lb 6 oz 110/70 Negative -???-???-???-???-???-???-?? ?-???-???-???-???-???- Negative 135 26 -???-???-???-???-???-???-?? ?-???-???-???-???-???- JV- Glucola pending. no complaints today. 11/08/21 -???-???-???-???-???-???-?? ?-???-???-???-???-???- 28w 3d 166 lb 4 oz 100/60 Negative -???-???-???-???-???-???-?? ?-???-???-???-???-???- Negative 151 28 -???-???-???-???-???-???-?? ?-???-???-???-???-???- JV- normal 2 8 week labs, no complaints today. tdap was given last visit. 11/25/21 -???-???-???-???-???-???-?? ?-???-???-???-???-???- 30w 6d 169 lb 2 oz 120/70 Negative -???-???-???-???-???-???-?? ?-???-???-???-???-???- Negative 145 31 -???-???-???-???-???-???-?? ?-???-???-???-???-???- SM- no vb lo f good fm nor egular ctx larc signed. 12/08/21 -???-???-???-???-???-???-?? ?-???-???-???-???-???- 32w 5d 172 lb 124/56 Negative -???-???-???-???-???-???-?? ?-???-???-???-???-???- Negative 140 32 -???-???-???-???-???-???-?? ?-???-???-???-???-???- SM- no vb lo f good fm no regular ctx SM- no vb lof good fm no regular c tx discussed palpitations and dizziness, change in vision with them at times. discussed supportive care and eliminating caffeine if no improvement consider cardio consult 12/20/21 -???-???-???-???-???-???-?? ?-???-???-???-???-???- 34w 3d 176 lb 2 oz 132/64 Negative -???-???-???-???-???-???-?? ?-???-???-???-???-???- Negative 188 34 -???-???-???-???-???-???-?? ?-???-???-???-???-???- -No VB, LO F. Patient now on metatoprol for tachycardia. NST today for tachycardia. -No VB, LOF. Patient now on meta toprol for tachycardia. NST today for tachycardia/reactive 01/02/22 -???-???-???-???-???-???-?? ?-???-???-???-???-???- 36w 2d 180 lb 112/74 -???-???-???-???-???-???-?? ?-???-???-???-???-???- 130 36 Cephalic 0 -???-???-???-???-???-???-?? ?-???-???-???-???-???- - no vb lo f good fm no regular ctx gbs done 01/11/22 -???-???-???-???-???-???-?? ?-???-???-???-???-???- 37w 4d 183 lb 122/82 Negative -???-???-???-???-???-???-?? ?-???-???-???-???-???- Negative 142 37 Cephalic 0 -???-???-???-???-???-???-?? ?-???-???-???-???-???- JV- gbs neg, no lof, vaginal bleeding, or dec fm. 01/17/22 -???-???-???-???-???-???-?? ?-???-???-???-???-???- 38w 3d 185 lb 98/70 Negative -???-???-???-???-???-???-?? ?-???-???-???-???-???- Negative 140 36 Cephalic 1.5 -???-???-???-???-???-???-?? ?-???-???-???-???-???- 50 -2 SM- no vb lof good fm n oregular ctx growth us ordered for drop in fundal height 01/27/22 -???-???-???-???-???-???-?? ?-???-???-???-???-???- 39w 6d 186 lb 8 oz 128/76 Negative -???-???-???-???-???-???-?? ?-???-???-???-???-???- Negative 145 40 Cephalic 1.5 -???-???-???-???-???-???-?? ?-???-???-???-???-???- 80 -3 JV- 41 wee k IOL set up. pt prefers PM induction after full discussion. consent signed. ACOG First Trimester First Trimester: Desire for , Alcohol, Tobacco Cessation, Illicit/Recreational Drug/Substance Use, Intimate Partner Violence, Barriers to care, Unstable Housing, Communication Barriers, Environmental/Work Hazards, Anticipated Course of Care, Toxoplasmosis Precations, Use of Any medications, Sexual activity, Exercise, Dental Care, Sauna/Hot tub use, Seat Belt use, Childbirth classes/Hospital facilities, , Travel, Indications for Ultrasound and Screening for Aneuploidy Diagnostics Diagnostics Diagnostics: Hgb 10.5 g/dL (12.0-15.0) L Hct 32.3 % (37-47) L Details: HIV: Urine Culture: Sequential Screen: NIPT Screen: Results POC Urinalysis 2 Dip (Clinic) Office Urine Glucose Negative Last Edit by Elba Ashraf on 01/27/22 11:02 Office Urine Protein Negative Last Edit by Elba Ashraf on 01/27/22 11:02 Coding Level of Care Code OB Routine Diagnoses Family history of congenital anomaly of cardiovascular system Z82.79 Supervision of normal Z34.90 Z3A.39 Weeks of gestation: 39 weeks Asthma J45.909 Seasonal allergies J30.2 Assessment and Plan Assessment and Plan (1) Family history of congenital anomaly of cardiovascular system: Status: Resolved Comment: patient's niece had TGA w/ VSD repair surgically (2) Supervision of normal : Status: Acute Comment: PRR ANJEL: 02/04/22 surprise Spouse: Itz (3) : Status: Acute Qualifiers: Weeks of gestation: 39 weeks Qualified Code(s): Z3A.39 - 39 weeks gestation of Comment: GBS Negative, declined ntd genetics and carrier, NL anatomy scan, NL growth US (4) Asthma: Status: Acute Comment: as a child, resolved. (5) Seasonal allergies: Status: Acute Comment: takes PRN OTC allergy medication Orders: Orders POC Urinalysis 2 Dip (Clinic) Today 01/27/22 1137 <Electronically signed by Rose Mahmood DO> Date Rose Mahmood DO Cosigner Signature: Date (if applicable) CC: Kiya Greer MICROBIOLOGY PROFESSOR Work Phone: Start: 01-17-2022 Ultrasound scan for growth CLIENT SOLUTIONS SPECIALIST-C Sowmya Rodriguezfranky MARIANELA Work Phone: Start: 01-17-2022 End: 01-18-2022 OB Limited With Biometrics Procedure Note: See Note; NOTES: [facility] Imaging Services [address] [place] [address] OB Limited With Biometrics MR#: [id number] Acct: [id number] Name: MARTIN CASTELLANOS Rep #: [id number] : 1995 F 26 From: Levi Portillo MD PCP: LUCINDA Wesley Status: REG CLI Study: OB Limited With Biometrics Date of Exam: 01/17 Exam# [id number] Ordering Dr: Dorothy Lee STUDY: SECOND AND THIRD TRIMESTER OBSTETRICAL ULTRASOUND REASON FOR EXAM: Female, 26 years old growth LMP: 04/23/2021 TECHNIQUE: Transabdominal TECHNICAL QUALITY: Adequate. PRIOR ULTRASOUND: None. FINDINGS: There is a single intrauterine fetus. The fetus is in a cephalic presentation. There is demonstrated cardiac activity with a heart rate of 144 bpm. There is a normal amniotic fluid volume. The largest amniotic fluid pocket measures 5.3 cm. The amniotic fluid index (ELLIOTT) is 16.0 cm. The placenta is anterior in location and is not low lying. There are Grade 2 placental changes. The cervix measures in length. The adnexal regions are not visualized. BIOMETRY: BPD: 8.8 cm: 35 weeks, 3 days HC: 32.8 cm: 37 weeks, 2 days AC: 34.5 cm: 38 weeks, 3 days FL: 7.2 cm: 37 weeks, 0 days CI: 75.62 FL/BPD: 82.31 FL/HC: 22.05 FL/AC: 20.94 HC/AC: 0.95 age by current US: 37 weeks, 0 days. ANJEL by current US: 02/07/2022. Estimated weight: 3268 grams, +/- 490 grams, 45 %. Age by LMP: 38 weeks, 3 days. ANJEL by LMP: 01/28/2022. US/OB Limited With Biometrics IMPRESSION: Living intrauterine of 37 weeks 0 days as described above. Electronically Signed: Levi Portillo MD at 17:23 EDT , CC: LUCINDA Greer; Dr. Dorothy Lee MD Leather Products Supervisor: Signed Kiya Greer [facility] Work Phone: Start: 01-17-2022 End: 01-17-2022 Interactive Developer Office Visit Report Comments: See Note; NOTES: [facility] [address] [place] [address] OFFICE VISIT Date of Service: 01/17/22 MR#: [id number] Acct: [id number] Name: MARTIN CASTELLANOS Rep #: [id number] : 1995 Provider: Dr. Dorothy fields MD Age/Sex: 26/F Location: [facility] [place] Status: Signed Intake Vital Signs 12/20/21 10:39 01/17/22 11:19 01/17/22 11:19 Height 5 ft 4 in 5 ft 4 in 5 ft 4 in Weight: 185 lb BMI 31.7 BP 98/70 Intake Visit Reasons: 38 WK OB Chief Complaint: est ob Automotive Vehicle Inspector Required: No Is patient in pain?: No Allergies Penicillins Allergy (Intermediate, Verified 01/11/22 08:52) Hives Medications multivitamin no.47-iron fum 27 mg-folate no.1 1 mg-dha 300 mg capsule (PNV-DHA) cap PO 06/14/21 [History Confirmed 01/17/22] metoprolol tartrate 25 mg tablet 25 mg PO BID #30 tabs 12/14/21 [Rx Confirmed 01/17/22] Last Menstral Period: 04/30/21 Zika: Zika virus screening: Negative : No PFSH PFSH Medical History COVID-19 vaccine series completed Surgical History H/O wisdom tooth extraction Family History Mother Hypertension Grandmother Breast cancer Grandmother Hypertension Social History household members: spouse housing: house 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al 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: employed 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 cut cord/dad catch: dad wants to catch and cut : yes PP control planned: unsure discussed possible routes of delivery and associated risks: risks and modes discussed special requests: portable monitoring. Specific Issue/Plans Covid status: given Flu vaccine: discussed Tdap vaccine: given 10/26/21 Rhogam: na LARC form signed: declined movement and labor precautions reviewed. Problem list reviewed and updated with the most current plan of care details and appropriate orders placed. Relevant counseling for the gestational age provided. Continue routine care and follow up unless otherwise noted in visit notes/problem list details Initial Weight: Not Recorded Date -???-???-???-???-???-???-?? ?-???-???-???-???-???- EGA Weight BP Urine Prot -???-???-???-???-???-???-?? ?-???-???-???-???-???- Glucose FHR FuHt Pres Dilation -???-???-???-???-???-???-?? ?-???-???-???-???-???- Effaced St Visit Note 06/30/21 -???-???-???-???-???-???-?? ?-???-???-???-???-???- 9w 5d 146 lb 2 oz 140/90 -???-???-???-???-???-???-?? ?-???-???-???-???-???- -???-???-???-???-???-???-?? ?-???-???-???-???-???- JV- CRL not consistent with LMP. ANJEL 01/28/22 07/26/21 -???-???-???-???-???-???-?? ?-???-???-???-???-???- 13w 3d 146 lb 2 oz 124/80 Negative -???-???-???-???-???-???-?? ?-???-???-???-???-???- Negative 157 -???-???-???-???-???-???-?? ?-???-???-???-???-???- JV- no lof, vaginal bleeding, or cramping. still has some nausea and can not tolerate chicken. declines gender/ genetic testing, 08/23/21 -???-???-???-???-???-???-?? ?-???-???-???-???-???- 17w 3d 149 lb 6 oz 110/80 Negative -???-???-???-???-???-???-?? ?-???-???-???-???-???- Negative 154 -???-???-???-???-???-???-?? ?-???-???-???-???-???- JV- no lof, vaginal bleeding, or cramping. not feeling movement yet. pt has her anatomy scan next week and is nervous about it due to a fhx of heart defect 09/23/21 -???-???-???-???-???-???-?? ?-???-???-???-???-???- 21w 6d 155 lb 2 oz 130/70 Negative -???-???-???-???-???-???-?? ?-???-???-???-???-???- Negative 150 22 -???-???-???-???-???-???-?? ?-???-???-???-???-???- Sm- no vb lo f good fm nor eular ctx 10/26/21 -???-???-???-???-???-???-?? ?-???-???-???-???-???- 26w 4d 164 lb 6 oz 110/70 Negative -???-???-???-???-???-???-?? ?-???-???-???-???-???- Negative 135 26 -???-???-???-???-???-???-?? ?-???-???-???-???-???- JV- Glucola pending. no complaints today. 11/08/21 -???-???-???-???-???-???-?? ?-???-???-???-???-???- 28w 3d 166 lb 4 oz 100/60 Negative -???-???-???-???-???-???-?? ?-???-???-???-???-???- Negative 151 28 -???-???-???-???-???-???-?? ?-???-???-???-???-???- JV- normal 2 8 week labs, no complaints today. tdap was given last visit. 11/25/21 -???-???-???-???-???-???-?? ?-???-???-???-???-???- 30w 6d 169 lb 2 oz 120/70 Negative -???-???-???-???-???-???-?? ?-???-???-???-???-???- Negative 145 31 -???-???-???-???-???-???-?? ?-???-???-???-???-???- SM- no vb lo f good fm nor egular ctx larc signed. 12/08/21 -???-???-???-???-???-???-?? ?-???-???-???-???-???- 32w 5d 172 lb 124/56 Negative -???-???-???-???-???-???-?? ?-???-???-???-???-???- Negative 140 32 -???-???-???-???-???-???-?? ?-???-???-???-???-???- SM- no vb lo f good fm no regular ctx SM- no vb lof good fm no regular c tx discussed palpitations and dizziness, change in vision with them at times. discussed supportive care and eliminating caffeine if no improvement consider cardio consult 12/20/21 -???-???-???-???-???-???-?? ?-???-???-???-???-???- 34w 3d 176 lb 2 oz 132/64 Negative -???-???-???-???-???-???-?? ?-???-???-???-???-???- Negative 188 34 -???-???-???-???-???-???-?? ?-???-???-???-???-???- -No VB, LO F. Patient now on metatoprol for tachycardia. NST today for tachycardia. -No VB, LOF. Patient now on meta toprol for tachycardia. NST today for tachycardia/reactive 01/02/22 -???-???-???-???-???-???-?? ?-???-???-???-???-???- 36w 2d 180 lb 112/74 -???-???-???-???-???-???-?? ?-???-???-???-???-???- 130 36 Cephalic 0 -???-???-???-???-???-???-?? ?-???-???-???-???-???- SM- no vb lo f good fm no regular ctx gbs done 01/11/22 -???-???-???-???-???-???-?? ?-???-???-???-???-???- 37w 4d 183 lb 122/82 Negative -???-???-???-???-???-???-?? ?-???-???-???-???-???- Negative 142 37 Cephalic 0 -???-???-???-???-???-???-?? ?-???-???-???-???-???- JV- gbs neg, no lof, vaginal bleeding, or dec fm. 01/17/22 -???-???-???-???-???-???-?? ?-???-???-???-???-???- 38w 3d 185 lb 98/70 Negative -???-???-???-???-???-???-?? ?-???-???-???-???-???- Negative 140 36 Cephalic 1.5 -???-???-???-???-???-???-?? ?-???-???-???-???-???- 50 -2 SM- no vb lof good fm n oregular ctx growth us ordered for drop in fundal height ACOG First Trimester First Trimester: Desire for , Alcohol, Tobacco Cessation, Illicit/Recreational Drug/Substance Use, Intimate Partner Violence, Barriers to care, Unstable Housing, Communication Barriers, Environmental/Work Hazards, Anticipated Course of Care, Toxoplasmosis Precations, Use of Any medications, Sexual activity, Exercise, Dental Care, Sauna/Hot tub use, Seat Belt use, Childbirth classes/Hospital facilities, , Travel, Indications for Ultrasound and Screening for Aneuploidy Diagnostics Diagnostics Diagnostics: Hgb 10.5 g/dL (12.0-15.0) L Hct 32.3 % (37-47) L Details: HIV: Urine Culture: Sequential Screen: NIPT Screen: Results POC Urinalysis 2 Dip (Clinic) Office Urine Glucose Negative Last Edit by Autumn Felder on 01/17/22 11:22 Office Urine Protein Negative Last Edit by Autumn Felder on 01/17/22 11:22 Coding Level of Care Code OB Routine Diagnoses tachycardia Family history of congenital anomaly of cardiovascular system Z82.79 Supervision of normal Z34.90 Z3A.38 Weeks of gestation: 38 weeks Asthma J45.909 Seasonal allergies J30.2 Assessment and Plan Assessment and Plan (1) tachycardia: Status: Resolved Comment: transient and reactive NST (2) Family history of congenital anomaly of cardiovascular system: Status: Resolved Comment: patient's niece had TGA w/ VSD repair surgically (3) Supervision of normal : Status: Acute Comment: PRR AJNEL: 02/04/22 surprise Spouse: Itz (4) : Status: Acute Qualifiers: Weeks of gestation: 38 weeks Qualified Code(s): Z3A.38 - 38 weeks gestation of Comment: GBS Negative, declined ntd genetics and carrier, NL anatomy scan (5) Asthma: Status: Acute Comment: as a child, resolved. (6) Seasonal allergies: Status: Acute Comment: takes PRN OTC allergy medication Orders: Orders POC Urinalysis 2 Dip (Clinic) Today OB Limited With Biometrics Today O26.849 - Uterine size-date discrepancy, unspecified trimester 01/17/22 1208 <Electronically signed by Dorothy Lee MD> Date Dorothy Lee MD Cosigner Signature: Date (if applicable) CC: Kiya Percy WHEELER Work Phone: Start: 01-11-2022 End: 01-11-2022 Interactive Developer Office Visit Report Comments: See Note; NOTES: [facility] [address] [place] [address] OFFICE VISIT Date of Service: 01/11/22 MR#: [id number] Acct: [id number] Name: MARTIN CASTELLANOS Rep #: [id number] : 1995 Provider: Dr. Rose Wolfe DO Age/Sex: 26/F Location: [facility] [place] Status: Signed Intake Vital Signs 12/20/21 10:39 01/11/22 08:53 01/11/22 08:54 Height 5 ft 4 in 5 ft 4 in 5 ft 4 in Weight: 183 lb BMI 31.4 BP 122/82 H Intake Visit Reasons: 37 WK OB Automotive Vehicle Inspector Required: No Is patient in pain?: No Allergies Penicillins Allergy (Intermediate, Verified 01/11/22 08:52) Hives Medications multivitamin no.47-iron fum 27 mg-folate no.1 1 mg-dha 300 mg capsule (PNV-DHA) cap PO 06/14/21 [History Confirmed 01/11/22] metoprolol tartrate 25 mg tablet 25 mg PO BID #30 tabs 12/14/21 [Rx Confirmed 01/11/22] Last Menstral Period: 04/30/21 Zika: Zika virus screening: Negative : No PFSH PFSH Medical History COVID-19 vaccine series completed Surgical History H/O wisdom tooth extraction Family History Mother Hypertension Grandmother Breast cancer Grandmother Hypertension Social History household members: spouse housing: house 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 cut cord/dad catch: dad wants to catch and cut : yes PP control planned: unsure discussed possible routes of delivery and associated risks: risks and modes discussed special requests: portable monitoring. Specific Issue/Plans Covid status: given Flu vaccine: discussed Tdap vaccine: given 10/26/21 Rhogam: na LARC form signed: declined movement and labor precautions reviewed. Problem list reviewed and updated with the most current plan of care details and appropriate orders placed. Relevant counseling for the gestational age provided. Continue routine care and follow up unless otherwise noted in visit notes/problem list details Initial Weight: Not Recorded Date -???-???-???-???-???-???-?? ?-???-???-???-???-???- EGA Weight BP Urine Prot -???-???-???-???-???-???-?? ?-???-???-???-???-???- Glucose FHR FuHt Pres Dilation -???-???-???-???-???-???-?? ?-???-???-???-???-???- Effaced St Visit Note 06/30/21 -???-???-???-???-???-???-?? ?-???-???-???-???-???- 9w 5d 146 lb 2 oz 140/90 -???-???-???-???-???-???-?? ?-???-???-???-???-???- -???-???-???-???-???-???-?? ?-???-???-???-???-???- JV- CRL not consistent with LMP. ANJEL 01/28/22 07/26/21 -???-???-???-???-???-???-?? ?-???-???-???-???-???- 13w 3d 146 lb 2 oz 124/80 Negative -???-???-???-???-???-???-?? ?-???-???-???-???-???- Negative 157 -???-???-???-???-???-???-?? ?-???-???-???-???-???- JV- no lof, vaginal bleeding, or cramping. still has some nausea and can not tolerate chicken. declines gender/ genetic testing, 08/23/21 -???-???-???-???-???-???-?? ?-???-???-???-???-???- 17w 3d 149 lb 6 oz 110/80 Negative -???-???-???-???-???-???-?? ?-???-???-???-???-???- Negative 154 -???-???-???-???-???-???-?? ?-???-???-???-???-???- JV- no lof, vaginal bleeding, or cramping. not feeling movement yet. pt has her anatomy scan next week and is nervous about it due to a fhx of heart defect 09/23/21 -???-???-???-???-???-???-?? ?-???-???-???-???-???- 21w 6d 155 lb 2 oz 130/70 Negative -???-???-???-???-???-???-?? ?-???-???-???-???-???- Negative 150 22 -???-???-???-???-???-???-?? ?-???-???-???-???-???- Sm- no vb lo f good fm nor eular ctx 10/26/21 -???-???-???-???-???-???-?? ?-???-???-???-???-???- 26w 4d 164 lb 6 oz 110/70 Negative -???-???-???-???-???-???-?? ?-???-???-???-???-???- Negative 135 26 -???-???-???-???-???-???-?? ?-???-???-???-???-???- JV- Glucola pending. no complaints today. 11/08/21 -???-???-???-???-???-???-?? ?-???-???-???-???-???- 28w 3d 166 lb 4 oz 100/60 Negative -???-???-???-???-???-???-?? ?-???-???-???-???-???- Negative 151 28 -???-???-???-???-???-???-?? ?-???-???-???-???-???- JV- normal 2 8 week labs, no complaints today. tdap was given last visit. 11/25/21 -???-???-???-???-???-???-?? ?-???-???-???-???-???- 30w 6d 169 lb 2 oz 120/70 Negative -???-???-???-???-???-???-?? ?-???-???-???-???-???- Negative 145 31 -???-???-???-???-???-???-?? ?-???-???-???-???-???- SM- no vb lo f good fm nor egular ctx larc signed. 12/08/21 -???-???-???-???-???-???-?? ?-???-???-???-???-???- 32w 5d 172 lb 124/56 Negative -???-???-???-???-???-???-?? ?-???-???-???-???-???- Negative 140 32 -???-???-???-???-???-???-?? ?-???-???-???-???-???- SM- no vb lo f good fm no regular ctx SM- no vb lof good fm no regular c tx discussed palpitations and dizziness, change in vision with them at times. discussed supportive care and eliminating caffeine if no improvement consider cardio consult 12/20/21 -???-???-???-???-???-???-?? ?-???-???-???-???-???- 34w 3d 176 lb 2 oz 132/64 Negative -???-???-???-???-???-???-?? ?-???-???-???-???-???- Negative 188 34 -???-???-???-???-???-???-?? ?-???-???-???-???-???- -No VB, LO F. Patient now on metatoprol for tachycardia. NST today for tachycardia. -No VB, LOF. Patient now on meta toprol for tachycardia. NST today for tachycardia/reactive 01/02/22 -???-???-???-???-???-???-?? ?-???-???-???-???-???- 36w 2d 180 lb 112/74 -???-???-???-???-???-???-?? ?-???-???-???-???-???- 130 36 Cephalic 0 -???-???-???-???-???-???-?? ?-???-???-???-???-???- - no vb lo f good fm no regular ctx gbs done 01/11/22 -???-???-???-???-???-???-?? ?-???-???-???-???-???- 37w 4d 183 lb 122/82 Negative -???-???-???-???-???-???-?? ?-???-???-???-???-???- Negative 142 37 Cephalic 0 -???-???-???-???-???-???-?? ?-???-???-???-???-???- JV- gbs neg, no lof, vaginal bleeding, or dec fm. ACOG First Trimester First Trimester: Desire for , Alcohol, Tobacco Cessation, Illicit/Recreational Drug/Substance Use, Intimate Partner Violence, Barriers to care, Unstable Housing, Communication Barriers, Environmental/Work Hazards, Anticipated Course of Care, Toxoplasmosis Precations, Use of Any medications, Sexual activity, Exercise, Dental Care, Sauna/Hot tub use, Seat Belt use, Childbirth classes/Hospital facilities, , Travel, Indications for Ultrasound and Screening for Aneuploidy Diagnostics Diagnostics Diagnostics: Hgb 10.5 g/dL (12.0-15.0) L Hct 32.3 % (37-47) L Details: HIV: Urine Culture: Sequential Screen: NIPT Screen: Results POC Urinalysis 2 Dip (Clinic) Office Urine Glucose Negative Last Edit by Angelina Blanco on 01/11/22 09:01 Office Urine Protein Negative Last Edit by Angelina Blanco on 01/11/22 09:01 Coding Level of Care Code OB Routine Diagnoses Heart murmur R01.1 Tachycardia R00.0 Palpitations R00.2 tachycardia Family history of congenital anomaly of cardiovascular system Z82.79 Supervision of normal Z34.90 Z3A.37 Weeks of gestation: 37 weeks Asthma J45.909 Seasonal allergies J30.2 Assessment and Plan Assessment and Plan (1) Heart murmur: Status: Acute (2) Tachycardia: Status: Acute (3) Palpitations: Status: Acute (4) tachycardia: Status: Acute Comment: transient and reactive NST (5) Family history of congenital anomaly of cardiovascular system: Status: Resolved Comment: patient's niece had TGA w/ VSD repair surgically (6) Supervision of normal : Status: Acute Comment: PRR ANJEL: 02/04/22 surprise Spouse: Itz (7) : Status: Acute Qualifiers: Weeks of gestation: 37 weeks Qualified Code(s): Z3A.37 - 37 weeks gestation of Comment: GBS Negative, declined ntd genetics and carrier, NL anatomy scan (8) Asthma: Status: Acute Comment: as a child, resolved. (9) Seasonal allergies: Status: Acute Comment: takes PRN OTC allergy medication Orders: Orders POC Urinalysis 2 Dip (Clinic) Today 01/11/22 0917 <Electronically signed by Rose Mahmood DO> Date Rose Mahmood DO Cosigner Signature: Date (if applicable) CC: Kiya Greer CNP Work Phone: Start: 01-04-2022 End: 01-04-2022 Echo Complete Comments: See Note; NOTES: [facility] [address] [place] [address] Echo Complete 01/04/22 1102 MR#: [id number] Acct: [id number] Name: MARTIN CASTELLANOS Rep #: [id number] : 1995 26 From: Kirk Lemon MD Attending Dr: Dr. Kirk Lemon MD Status: FAVIO RODRIGUEZ Ordering Dr: Kirk Lemon MD Date: 01/04/22 Location: [facility] Sex: F C Admitted: Reason For Study: Arrhythmia Procedure This was a 2D Doppler, Color Flow transthoracic echocardiogram. Exam performed in department. Left Ventricle Normal LV size. Left ventricular systolic function is normal. The estimated ejection fraction is 55 %. Normal diastology for age. No regional wall motion abnormalities noted. Right Ventricle Normal RV size. Normal systolic function. Atria Normal left atrium. Normal right atrium. Mitral Valve Normal mitral valve. Tricuspid Valve Normal tricuspid valve. Mild tricuspid valve insufficiency. Aortic Valve Normal aortic valve. Trisinus/trileaflet aortic valve. Pulmonic Valve Normal pulmonic valve. Great Vessels Normal aortic root. The pulmonary artery is normal size. Normal inferior vena cava. Pericardium/Pleural No pericardial effusion. MMode/2D Measurements Calculations LVIDd: 4.8 cm IVSd: 1.0 cm Ao root diam: 2.2 cm LVIDs: 3.1 cm LVPWd: 0.93 cm RVDd: 3.6 cm FS: 35.4 % LAV(MOD-bp): 25.0 ml LVAd ap4: 29.7 cm2 SV(MOD-sp4): 53.6 ml LAV(MOD-bp) Indexed: 13.4 ml/m2 LVLd ap4: 7.7 cm LAV(MOD-sp2): 25.8 ml EDV(MOD-sp4): 94.1 ml LAV(MOD-sp4): 25.5 ml EDV(sp4-el): 97.2 ml LVAs ap4: 17.6 cm2 LVLs ap4: 6.4 cm ESV(MOD-sp4): 40.5 ml ESV(sp4-el): 41.2 ml EF(MOD-sp4): 57.0 % EF(sp4-el): 57.7 % SV(sp4-el): 56.1 ml LA A4 area: 11.5 cm2 LA dimension(2D): 3.3 cm RA A4 area: 9.7 cm2 Doppler Measurements Calculations MV E max ester: 70.1 cm/sec Lat Peak E' Ester: 14.0 cm/sec Med Peak E' Ester: 7.8 cm/sec MV A max ester: 58.9 cm/sec E/E' lat: 5.0 E/E' med: 9.0 MV E/A: 1.2 Ao V2 max: 158.0 cm/sec LV V1 max: 136.6 cm/sec PA V2 max: 140.5 cm/sec Ao max P.0 mmHg LV V1 max P.5 mmHg PA V2 mean: 104.2 cm/sec Ao V2 mean: 112.3 cm/sec Ao mean P.5 mmHg Ao V2 VTI: 28.6 cm TR max ester: 200.7 cm/sec TR max P.1 mmHg ECHO/Echo Complete Interpretation Summary Normal LV size. Left ventricular systolic function is normal. The estimated ejection fraction is 55 %. Mild tricuspid valve insufficiency. Normal diastology for age. _ Ordering Physician: Kirk Lemon Referring Physician: Kiya Greer Performed By: Juana Burns, RDSELENE, RVT 01/04/22 1619 Date Kirk Lemon MD CC: CLIENT SOLUTIONS SPECIALIST-C Kiya Greer; Dr. Kirk Lemon MD Date Dictated: 01/04/22 1102 Date Transcribed: 01/04/221618 [employer] Supervisor: Signed Kiya Greer CNP Work Phone: Start: 01-02-2022 End: 01-02-2022 Interactive Developer Office Visit Report Comments: See Note; NOTES: [facility] [address] [place] [address] OFFICE VISIT Date of Service: 01/02/22 MR#: [id number] Acct: [id number] Name: MARTIN CASTELLANOS Rep #: [id number] : 1995 Provider: Dr. Dorothy fields MD Age/Sex: 26/F Location: [facility] [place] Status: Signed Intake Vital Signs 12/08/21 09:03 12/27/21 09:35 01/02/22 13:18 01/02/22 13:19 Height 5 ft 4 in 5 ft 4 in 5 ft 4 in 5 ft 4 in Weight: 176 lb 180 lb BMI 30.2 30.9 BP 129/79 H 112/74 Respiration 16 Pulse 107 H Pulse Oximetry (%) 99 Intake Visit Reasons: 36 WK OB Chief Complaint: est ob Automotive Vehicle Inspector Required: No Is patient in pain?: No Allergies Penicillins Allergy (Intermediate, Verified 12/27/21 09:35) Hives Medications multivitamin no.47-iron fum 27 mg-folate no.1 1 mg-dha 300 mg capsule (PNV-DHA) cap PO 06/14/21 [History Confirmed 01/02/22] metoprolol tartrate 25 mg tablet 25 mg PO BID #30 tabs 12/14/21 [Rx Confirmed 01/02/22] Last Menstral Period: 04/30/21 Zika: Zika virus screening: Negative : No PFSH PFSH Medical History COVID-19 vaccine series completed Surgical History H/O wisdom tooth extraction Family History Mother Hypertension Grandmother Breast cancer Grandmother Hypertension Social History household members: spouse housing: house 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al status: employed 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 cut cord/dad catch: dad wants to catch and cut : yes PP control planned: unsure discussed possible routes of delivery and associated risks: [] special requests: [] Specific Issue/Plans Covid status: given Flu vaccine: discussed Tdap vaccine: given 10/26/21 Rhogam: na LARC form signed: declined movement and labor precautions reviewed. Problem list reviewed and updated with the most current plan of care details and appropriate orders placed. Relevant counseling for the gestational age provided. Continue routine care and follow up unless otherwise noted in visit notes/problem list details Initial Weight: Not Recorded Date -???-???-???-???-???-???-?? ?-???-???-???-???-???- EGA Weight BP Urine Prot -???-???-???-???-???-???-?? ?-???-???-???-???-???- Glucose FHR FuHt Pres Dilation -???-???-???-???-???-???-?? ?-???-???-???-???-???- Effaced St Visit Note 06/30/21 -???-???-???-???-???-???-?? ?-???-???-???-???-???- 9w 5d 146 lb 2 oz 140/90 -???-???-???-???-???-???-?? ?-???-???-???-???-???- -???-???-???-???-???-???-?? ?-???-???-???-???-???- JV- CRL not consistent with LMP. ANJEL 01/28/22 07/26/21 -???-???-???-???-???-???-?? ?-???-???-???-???-???- 13w 3d 146 lb 2 oz 124/80 Negative -???-???-???-???-???-???-?? ?-???-???-???-???-???- Negative 157 -???-???-???-???-???-???-?? ?-???-???-???-???-???- JV- no lof, vaginal bleeding, or cramping. still has some nausea and can not tolerate chicken. declines gender/ genetic testing, 08/23/21 -???-???-???-???-???-???-?? ?-???-???-???-???-???- 17w 3d 149 lb 6 oz 110/80 Negative -???-???-???-???-???-???-?? ?-???-???-???-???-???- Negative 154 -???-???-???-???-???-???-?? ?-???-???-???-???-???- JV- no lof, vaginal bleeding, or cramping. not feeling movement yet. pt has her anatomy scan next week and is nervous about it due to a fhx of heart defect 09/23/21 -???-???-???-???-???-???-?? ?-???-???-???-???-???- 21w 6d 155 lb 2 oz 130/70 Negative -???-???-???-???-???-???-?? ?-???-???-???-???-???- Negative 150 22 -???-???-???-???-???-???-?? ?-???-???-???-???-???- Sm- no vb lo f good fm nor eular ctx 10/26/21 -???-???-???-???-???-???-?? ?-???-???-???-???-???- 26w 4d 164 lb 6 oz 110/70 Negative -???-???-???-???-???-???-?? ?-???-???-???-???-???- Negative 135 26 -???-???-???-???-???-???-?? ?-???-???-???-???-???- JV- Glucola pending. no complaints today. 11/08/21 -???-???-???-???-???-???-?? ?-???-???-???-???-???- 28w 3d 166 lb 4 oz 100/60 Negative -???-???-???-???-???-???-?? ?-???-???-???-???-???- Negative 151 28 -???-???-???-???-???-???-?? ?-???-???-???-???-???- JV- normal 2 8 week labs, no complaints today. tdap was given last visit. 11/25/21 -???-???-???-???-???-???-?? ?-???-???-???-???-???- 30w 6d 169 lb 2 oz 120/70 Negative -???-???-???-???-???-???-?? ?-???-???-???-???-???- Negative 145 31 -???-???-???-???-???-???-?? ?-???-???-???-???-???- SM- no vb lo f good fm nor egular ctx larc signed. 12/08/21 -???-???-???-???-???-???-?? ?-???-???-???-???-???- 32w 5d 172 lb 124/56 Negative -???-???-???-???-???-???-?? ?-???-???-???-???-???- Negative 140 32 -???-???-???-???-???-???-?? ?-???-???-???-???-???- SM- no vb lo f good fm no regular ctx SM- no vb lof good fm no regular c tx discussed palpitations and dizziness, change in vision with them at times. discussed supportive care and eliminating caffeine if no improvement consider cardio consult 12/20/21 -???-???-???-???-???-???-?? ?-???-???-???-???-???- 34w 3d 176 lb 2 oz 132/64 Negative -???-???-???-???-???-???-?? ?-???-???-???-???-???- Negative 188 34 -???-???-???-???-???-???-?? ?-???-???-???-???-???- -No VB, LO F. Patient now on metatoprol for tachycardia. NST today for tachycardia. -No VB, LOF. Patient now on meta toprol for tachycardia. NST today for tachycardia/reactive 01/02/22 -???-???-???-???-???-???-?? ?-???-???-???-???-???- 36w 2d 180 lb 112/74 -???-???-???-???-???-???-?? ?-???-???-???-???-???- 130 36 Cephalic 0 -???-???-???-???-???-???-?? ?-???-???-???-???-???- SM- no vb lo f good fm no regular ctx gbs done ACOG First Trimester First Trimester: Desire for , Alcohol, Tobacco Cessation, Illicit/Recreational Drug/Substance Use, Intimate Partner Violence, Barriers to care, Unstable Housing, Communication Barriers, Environmental/Work Hazards, Anticipated Course of Care, Toxoplasmosis Precations, Use of Any medications, Sexual activity, Exercise, Dental Care, Sauna/Hot tub use, Seat Belt use, Childbirth classes/Hospital facilities, , Travel, Indications for Ultrasound and Screening for Aneuploidy Diagnostics Diagnostics Diagnostics: Glucose 1 Hr 50 gm 96 mg/dL (70-140) Hgb 10.5 g/dL (12.0-15.0) L Hct 32.3 % (37-47) L Details: HIV: Urine Culture: Sequential Screen: NIPT Screen: Coding Level of Care Code OB Routine Diagnoses Heart murmur R01.1 Palpitations R00.2 Tachycardia R00.0 tachycardia Family history of congenital anomaly of cardiovascular system Z82.79 Supervision of normal Z34.90 Z3A.36 Weeks of gestation: 36 weeks Asthma J45.909 Seasonal allergies J30.2 Assessment and Plan Assessment and Plan (1) Heart murmur: Status: Acute (2) Palpitations: Status: Acute (3) Tachycardia: Status: Acute (4) tachycardia: Status: Acute Comment: transient and reactive NST (5) Family history of congenital anomaly of cardiovascular system: Status: Resolved Comment: patient's niece had TGA w/ VSD repair surgically (6) Supervision of normal : Status: Acute Comment: PRR ANJEL: 02/04/22 surprise Spouse: Itz (7) : Status: Acute Qualifiers: Weeks of gestation: 36 weeks Qualified Code(s): Z3A.36 - 36 weeks gestation of Comment: declined ntd genetics and carrier, NL anatomy scan (8) Asthma: Status: Acute Comment: as a child, resolved. (9) Seasonal allergies: Status: Acute Comment: takes PRN OTC allergy medication Orders: Orders POC Urinalysis 2 Dip (Clinic) Today Culture, Group B Streptococcus Today Z3A.36 - 36 weeks gestation of 01/02/22 1337 <Electronically signed by Dorothy Lee MD> Date Dorothy Lee MD [facility] Signature: Date (if applicable) CC: Kiya Percy MICROBIOLOGY PROFESSOR Work Phone: Start: 12-27-2021 End: 12-27-2021 Cardiology Visit Report Comments: See Note; NOTES: [facility] [address] [place] [address] OFFICE VISIT Date of Service: 12/27/21 MR#: [id number] Acct: [id number] Name: MARTIN CASTELLANOS Rep #: [id number] : 1995 Provider: Dr. 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 She was referred to us because she has been having palpitations which have been detected on her apple watch with heart rate going up to 260 bpm. She did have an EKG done which demonstrated sinus tachycardia with a rate of 130 bpm. A 48-hour Holter monitor was performed which demonstrated an average heart rate of 94 bpm in sinus rhythm, minimum of 60 bpm and a maximum 158 bpm which was in sinus tachycardia. Occasional palpitations were noted which correlated with a tachycardia. Her TSH is noted to be normal and her hemoglobin is low at 10.5. She has had occasional lightheadedness nauseated and blurred vision. She has had no syncopal episodes however. She has been on metoprolol as needed only. Her physical exam today demonstrates clear lung bentley regular rate and rhythm 2/6 systolic murmur noted left sternal border and no pedal edema. Intake Vital Signs 12/14/21 10:57 12/27/21 09:33 12/27/21 09:35 Height 5 ft 4 in 5 ft 4 in 5 ft 4 in Weight: 176 lb BMI 30.2 BP 129/79 H Respiration 16 Pulse 107 H Pulse Oximetry (%) 99 Intake Visit Reasons: tachycardia/ 33 wks Allergies Penicillins Allergy (Intermediate, Verified 12/27/21 09:35) Hives Medications multivitamin no.47-iron fum 27 mg-folate no.1 1 mg-dha 300 mg capsule (PNV-DHA) cap PO 06/14/21 [History Confirmed 12/27/21] metoprolol tartrate 25 mg tablet 25 mg PO BID #30 tabs 12/14/21 [Rx Confirmed 12/27/21] PFSH Medical History COVID-19 vaccine series completed Surgical History H/O wisdom tooth extraction Family History Mother Hypertension Grandmother Breast cancer Grandmother Hypertension Social History household members: spouse housing: house 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al status: employed 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 pets 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: Yes Smoking Status: Never smoker second hand exposure: Yes alcohol intake: current alcohol intake frequency: holidays/special occasions only details: not while substance use type: does not use seatbelt use: always do you feel safe at home: Yes additional social history: - Itz [place] Const Const: Negative for fatigue, weakness, headache(s), frequent falls, difficulty sleeping or excessive sweating Eyes Eyes: Negative for loss of peripheral vision, transient loss of vision, blurry vision, double vision or tunnel vision ENT ENT: Negative for headache(s), dizziness, Nosebleed/epistaxis or balance problems Cardio Chest Pain: No Palpitations: Yes (sometimes becomes nauseous, lightheaded, or notes blurrd vision) feels like its: fast Edema: None Muscle aches with walking: None Resp Respiratory: Negative for SOB with activity, SOB at rest, SOB orthopnea SOB lying down, Cough or paroxysmal nocturnal dyspnea GI GI: Negative nausea, vomiting, heartburn or black,tarry stools : Negative for hematuria Musc Musc: Negative for muscle aches/ myalgia, muscle weakness, joint pain or balance problems Skin Skin: Negative non-healing lesions, rash or unusual bruising Neuro Neuro: Negative for dizziness, lightheadedness, near syncope, syncope, orthostatic symptoms, frequent falls, headache(s), weakness, confusion, memory loss, blurry vision, double vision, vertigo or lack of coordination Solo Hematologic/Lymphatic: Negative for easy bleeding or easy bruising Endo Endo: Negative for fatigue, excessive sweating, flushing or increased thirst/drinking Psych Psych: Negative for anxiety or depression Allergy Allergy/Immunology: Negative for hives and Negative for rash Cardiology Exam Const Appearance: cooperative, healthy appearing, no acute distress, well developed and well groomed Nutritional Appearance: average body habitus and well nourished Orientation: alert, awake and oriented x3 Head Head: normal to inspection, normocephalic and atraumatic Ears: hearing grossly normal bilaterally and external ears normal Nose: external nose normal, nares normal, nasal mucous membranes and turbinates normal, septum normal and no nasal discharge Face and Sinus: face symmetric Mouth: oral mucosae normal, tongue normal, oropharynx normal and moist mucous membranes Teeth and gingiva: dentition normal Throat: posterior oropharynx normal, tonsils normal and uvula midline Eyes General: appearance normal, both eyes and all related structures Eyelids: eyelids normal Conjunctivae: conjunctivae normal Pupils: PERRL, normal by confrontation and accommodation normal EOM: EOM intact bilaterally Neck Neck: normal visual inspection, trachea midline and no JVD JVD: +5 Carotids: normal carotid upstroke and bounding pulses Chest Chest inspection: normal inspection of the chest, symmetric chest movement and normal respiratory effort Auscultation: Bilateral: Clear to Auscultation Cardio Palpation: normal PMI Rate: regular rate Rhythm: regular rhythm Heart sounds: S1 normal, S2 normal and normal, physiologic split S2; Negative rub, gallop or murmur GI GI: normal to inspection, soft, no hepatosplenomegaly and bowel sounds present Neuro General: patient alert, patient awake, patient oriented x3, gait normal, moves all extremities and no focal sensory deficit Skin Skin: no rashes or lesions noted Extremities Pulses: Normal: Right Femoral Pulse, Left Femoral Pulse, Right Dorsalis Pedis Pulse, Left Dorsalis Pedis Pulse, Right Posterior Tibial Pulse, Left Posterior Tibial Pulse, Right Radial Pulse and Left Radial Pulse Lower Extremity Edema: None: Bilateral Musculoskel Musculoskeletal: No joint tenderness Psych Psychological: normal affect Supplemental Info Supplemental Information Labs: No Data to Display Diagnostics: Electrocardiogram Pulmonary: No Data to Display Assessment and Plan Assessment and Plan (1) Tachycardia: Status: Acute Plan: She does have tachycardia which is likely multifactorial. I think she is mildly anemic and also may have some issues with her hydration. I would like the above to be improved. In the meantime she should continue with increasing her fluid intake. I have also asked her to discuss with you about whether she would benefit from some iron supplementation to improve her hemoglobin. At this time however I do not detect any malignant arrhythmias. (2) Heart murmur: Status: Acute Plan: She does have a soft systolic heart murmur and it to be prudent for us to exclude a bicuspid aortic valve. She does have a family history of congenital heart disease. Depending on the findings of the echocardiogram further recommendations will be made. Thank you for allowing me to participate in the care of your patient. Please don't hesitate to call if any issues arise. Orders: Orders Echo Complete Today R00.0 - Tachycardia, unspecified Plan Details Follow Up: prn Coding Level of Care Code Off vis,new,level 4 Diagnoses Tachycardia R00.0 Heart murmur R01.1 Coding Level of Care Code Off vis,new,level 4 Diagnoses Tachycardia R00.0 Heart murmur R01.1 12/27/21 1021 <Electronically signed by Kirk Lemon MD> Date Kirk Lemon MD Cosigner Signature: Date (if applicable) CC: CLIENT SOLUTIONS SPECIALISTJuanita Greer; MD Kiya Jaimes [facility] Work Phone: Start: 12-20-2021 End: 12-20-2021 Interactive Developer Office Visit Report Comments: See Note; NOTES: [facility] [address] [place] [address] OFFICE VISIT Date of Service: 12/20/21 MR#: [id number] Acct: [id number] Name: MARTIN CASTELLANOS Rep #: [id number] : 1995 Provider: LUCINDA rodriguez Age/Sex: 26/F Location: [facility] [place] Status: Signed Intake Vital Signs 12/08/21 09:03 12/14/21 10:57 12/20/21 10:37 12/20/21 10:39 Height 5 ft 4 in 5 ft 4 in 5 ft 4 in 5 ft 4 in Weight: 172 lb 176 lb 2 oz BMI 29.5 30.2 BP 138/85 H 132/64 H Respiration 16 Pulse 111 H Temp 97.8 F Pulse Oximetry (%) 99 Intake Visit Reasons: 34 WK OB Allergies Penicillins Allergy (Intermediate, Verified 12/20/21 10:39) Hives Medications multivitamin no.47-iron fum 27 mg-folate no.1 1 mg-dha 300 mg capsule (PNV-DHA) cap PO 06/14/21 [History Confirmed 12/20/21] metoprolol tartrate 25 mg tablet 25 mg PO BID #30 tabs 12/14/21 [Rx Confirmed 12/20/21] Last Menstral Period: 04/30/21 Zika: Zika virus screening: Negative : No PFSH PFSH Medical History COVID-19 vaccine series completed Surgical History H/O wisdom tooth extraction Family History Mother Hypertension Grandmother Breast cancer Grandmother Hypertension Social History household members: spouse housing: house 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al status: employed 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 cut cord/dad catch: dad wants to catch and cut : yes PP control planned: unsure discussed possible routes of delivery and associated risks: [] special requests: [] Specific Issue/Plans Covid status: given Flu vaccine: discussed Tdap vaccine: given 10/26/21 Rhogam: na LARC form signed: declined movement and labor precautions reviewed. Problem list reviewed and updated with the most current plan of care details and appropriate orders placed. Relevant counseling for the gestational age provided. Continue routine care and follow up unless otherwise noted in visit notes/problem list details Initial Weight: Not Recorded Date -???-???-???-???-???-???-?? ?-???-???-???-???-???- EGA Weight BP Urine Prot -???-???-???-???-???-???-?? ?-???-???-???-???-???- Glucose FHR FuHt Pres Dilation -???-???-???-???-???-???-?? ?-???-???-???-???-???- Effaced St Visit Note 06/30/21 -???-???-???-???-???-???-?? ?-???-???-???-???-???- 9w 5d 146 lb 2 oz 140/90 -???-???-???-???-???-???-?? ?-???-???-???-???-???- -???-???-???-???-???-???-?? ?-???-???-???-???-???- JV- CRL not consistent with LMP. ANJEL 01/28/22 07/26/21 -???-???-???-???-???-???-?? ?-???-???-???-???-???- 13w 3d 146 lb 2 oz 124/80 Negative -???-???-???-???-???-???-?? ?-???-???-???-???-???- Negative 157 -???-???-???-???-???-???-?? ?-???-???-???-???-???- JV- no lof, vaginal bleeding, or cramping. still has some nausea and can not tolerate chicken. declines gender/ genetic testing, 08/23/21 -???-???-???-???-???-???-?? ?-???-???-???-???-???- 17w 3d 149 lb 6 oz 110/80 Negative -???-???-???-???-???-???-?? ?-???-???-???-???-???- Negative 154 -???-???-???-???-???-???-?? ?-???-???-???-???-???- JV- no lof, vaginal bleeding, or cramping. not feeling movement yet. pt has her anatomy scan next week and is nervous about it due to a fhx of heart defect 09/23/21 -???-???-???-???-???-???-?? ?-???-???-???-???-???- 21w 6d 155 lb 2 oz 130/70 Negative -???-???-???-???-???-???-?? ?-???-???-???-???-???- Negative 150 22 -???-???-???-???-???-???-?? ?-???-???-???-???-???- Sm- no vb lo f good fm nor eular ctx 10/26/21 -???-???-???-???-???-???-?? ?-???-???-???-???-???- 26w 4d 164 lb 6 oz 110/70 Negative -???-???-???-???-???-???-?? ?-???-???-???-???-???- Negative 135 26 -???-???-???-???-???-???-?? ?-???-???-???-???-???- JV- Glucola pending. no complaints today. 11/08/21 -???-???-???-???-???-???-?? ?-???-???-???-???-???- 28w 3d 166 lb 4 oz 100/60 Negative -???-???-???-???-???-???-?? ?-???-???-???-???-???- Negative 151 28 -???-???-???-???-???-???-?? ?-???-???-???-???-???- JV- normal 2 8 week labs, no complaints today. tdap was given last visit. 11/25/21 -???-???-???-???-???-???-?? ?-???-???-???-???-???- 30w 6d 169 lb 2 oz 120/70 Negative -???-???-???-???-???-???-?? ?-???-???-???-???-???- Negative 145 31 -???-???-???-???-???-???-?? ?-???-???-???-???-???- SM- no vb lo f good fm nor egular ctx larc signed. 12/08/21 -???-???-???-???-???-???-?? ?-???-???-???-???-???- 32w 5d 172 lb 124/56 Negative -???-???-???-???-???-???-?? ?-???-???-???-???-???- Negative 140 32 -???-???-???-???-???-???-?? ?-???-???-???-???-???- SM- no vb lo f good fm no regular ctx SM- no vb lof good fm no regular c tx discussed palpitations and dizziness, change in vision with them at times. discussed supportive care and eliminating caffeine if no improvement consider cardio consult 07/12/22 -???-???-???-???-???-???-?? ?-???-???-???-???-???- 34w 3d 176 lb 2 oz 132/64 Negative -???-???-???-???-???-???-?? ?-???-???-???-???-???- Negative 188 34 -???-???-???-???-???-???-?? ?-???-???-???-???-???- -No VB, LO F. Patient now on metatoprol for tachycardia. NST today for tachycardia. -No VB, LOF. Patient now on meta toprol for tachycardia. NST today for tachycardia/reactive ACOG First Trimester First Trimester: Desire for , Alcohol, Tobacco Cessation, Illicit/Recreational Drug/Substance Use, Intimate Partner Violence, Barriers to care, Unstable Housing, Communication Barriers, Environmental/Work Hazards, Anticipated Course of Care, Toxoplasmosis Precations, Use of Any medications, Sexual activity, Exercise, Dental Care, Sauna/Hot tub use, Seat Belt use, Childbirth classes/Hospital facilities, , Travel, Indications for Ultrasound and Screening for Aneuploidy Diagnostics Diagnostics Diagnostics: Blood Type A POSITIVE Antibody Screen NEGATIVE Glucose 1 Hr 50 gm 96 mg/dL (70-140) HIV 1 2 Antibody Non-Reactive (Nonreactive) Rubella IgG Antibody Reactive (Nonreactive) Pap Smear Negative Hgb 10.5 g/dL (12.0-15.0) L Hct 32.3 % (37-47) L Chlamydia DNA (ZULEMA) Negative (Negative) N.gonorrhoeae DNA (ZULEMA) Negative (Negative) Details: HIV: Urine Culture: Sequential Screen: NIPT Screen: Office Procedures Non-stress Test Non-Stress Test Indications for Monitoring: Yes other ( tachycardia) Heart Rate Baseline: 150 Heart Rate Variability: moderate Movement: Present Heart Rate Accelerations: Present Decelerations: Absent Contractions: Absent Impression: Yes Reactive Non-Stress Test Results POC Urinalysis 2 Dip (Clinic) Office Urine Glucose Negative Last Edit by Elba Ashraf on 12/20/21 10:44 Office Urine Protein Negative Last Edit by Elba Ashraf on 12/20/21 10:44 Coding Level of Care Code OB Routine Diagnoses Supervision of normal Z34.90 Z3A.30 Weeks of gestation: 30 weeks Tachycardia R00.0 Family history of congenital anomaly of cardiovascular system Z82.79 tachycardia CPT Codes Non-Stress Test (97458) Assessment and Plan Assessment and Plan (1) Supervision of normal : Status: Acute Comment: PRR ANJEL: 02/04/22 surprise Spouse: Itz (2) : Status: Acute Qualifiers: Weeks of gestation: 30 weeks Qualified Code(s): Z3A.30 - 30 weeks gestation of Comment: declined ntd genetics and carrier, NL anatomy scan (3) Tachycardia: Status: Acute Comment: Sees Dr Lemon (4) Family history of congenital anomaly of cardiovascular system: Status: Acute Comment: patient's niece had TGA w/ VSD repair surgically (5) tachycardia: Status: Acute Comment: transient and reactive NST Orders: Orders POC Urinalysis 2 Dip (Clinic) Today OB NST Today O36.8390 - Maternal care for abnormalities of the heart rate or rhythm, unspecified trimester, not applicable or unspecified Plan problem list reviewed and updated for most current plan of care and appropriate orders placed. Relevant counseling for the gestational age appropriate provided and ACOG education checklist updated. Continue routine care and follow up. 12/20/21 1136 <Electronically signed by Suzanne JANE> Date Suzanne JANE Cosigner Signature: Date (if applicable) CC: Kiya Greer MICROBIOLOGY PROFESSOR Work Phone: Start: 12-14-2021 End: 12-17-2021 12 Lead EKG Comments: See Note; NOTES: [facility] Cardiovascular Services [address] [place] [address] 12 Lead EKG 12/14/21 1106 MR#: [id number] Acct: [id number] Name: MARTIN CASTELLANOS Rep #: [id number] : 1995 From: Kristopher Castillo MD Attending Dr: Status: DEP ER Ordering Dr: Kristopher Lopez MD Date: 12/14/21 Location: ED Sex: F C Admitted: Test Reason : palpitations Blood Pressure : / mmHG Vent. Rate : 137 BPM Atrial Rate : 137 BPM P-R Int : 122 ms QRS Dur : 078 ms QT Int : 296 ms P-R-T Axes : 057 089 021 degrees QTc Int : 446 ms Sinus tachycardia Otherwise normal ECG Confirmed by FIOR URBINA, KRISTOPHER ([id number]), index editor ANGELA HSU ([id number]) on 12/17/2021 9:42:28 AM Referred By: John Confirmed By:KRISTOPHER CASTILLO MD 12/17/21 0942 Date Kristopher Castillo MD CC: KARINAC Sowmya Baldwin; Dr. Kristopher Lopez MD Signed Kiya Greer CNP Work Phone: Start: 12-14-2021 End: 12-14-2021 Emergency Department Summary Comments: See Note; NOTES: [facility] Medical Records Department [address] [place] [address] Emergency Department Summary 12/14/21 MR#: [id number] Acct: [id number] Name: MARTIN CASTELLANOS Rep #: [id number] : 1995 From: Kristopher Lopez MD PCP: LUCINDA Suárez Status:REG ER Location: ED HPI History of Present Illness Chief Complaint: Palpitations Narrative Narrative: Patient presents with palpitations, she tells me that her apple watch read up to 160 bpm and she was feeling lightheaded at the time. She has a history of this during her , she is in her third trimester, she had decreased all caffeine and was okay for a few weeks and then today her tachycardia returned. Other than her lightheadedness when her heart rate was really high she had no chest pain no pleuritic component she had no back pain or tearing sensation she has no lower extremity edema or calf pain. She has no history of DVT or PE. She has no shortness of breath. She has no abdominal pain. No history of thyroid issues, and otherwise she has no other symptoms. [facility] Medical History COVID-19 vaccine series completed Home Medications multivitamin no.47-iron fum 27 mg-folate no.1 1 mg-dha 300 mg capsule (PNV-DHA) cap PO 06/14/21 [History Last Taken Unknown] metoprolol tartrate 25 mg tablet 25 mg PO BID #30 tabs 12/14/21 [Rx Last Taken Unknown] Allergy/AdvReac Type Severity Reaction Status Date / Time Penicillins Allergy Intermediate Hives Verified 12/14/21 10:59 Family History Mother Hypertension Grandmother Breast cancer Grandmother Hypertension Surgical History H/O wisdom tooth extraction Social History household members: spouse housing: house 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al status: employed 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 Some lightheadedness Eyes: No visual changes ENT: No upper airway congestion, normal voice Neck: No neck pain Cardiovascular: No chest pain. Palpitations as in HPI Respiratory: No shortness of breath or cough Gastrointestinal: No abdominal pain, nausea vomiting or diarrhea. She has movement Genitourinary: No dysuria Musculoskeletal: Denies myalgias no difficulty with ambulation Skin: No rash Neurological: No memory loss, confusion or any focal weakness Psych: No recent behavioral changes Hematologic: No easy bleeding or easy bruising EXAM Physical Exam Narrative Exam Narrative: Physical exam General: Well nourished, Well developed, No Acute Distress Head: Normocephalic, Atraumatic Eyes: Conjunctiva not pale ENT: Moist mucous membranes Neck: Supple, Nontender, No lymphadenopathy Cardiovascular: Regular tachycardia. No obvious murmurs. Respiratory: No distress, CTA bilaterally Abdomen: Gravid past the umbilicus, nontender. Back: Nontender, Normal Inspection. Negative for: CVA tenderness Extremities: Nontender, No edema, no calf tenderness Skin: Normal color, No rash Neurological: Alert, Normal Strength, Normal Sensation Psychological: Normal affect Const Vital Signs: 12/14/21 10:57 12/14/21 11:16 Temperature 97.8 F Temperature Source Temporal Pulse Rate 111 H Respiratory Rate 16 Respiratory Effort Normal Non-Labored Respiratory Pattern Normal Blood Pressure 138/85 H Blood Pressure Mean 102 Pulse Ox 99 Oxygen Delivery Method Room Air MDM MDM MDM Narrative Medical decision making narrative: Patient has an unremarkable ED work-up she appears well, she was given a small amount of metoprolol orally and her heart rate now is in the ED she is asymptomatic. I talked to ACID TREATER, Dr. Palomo Sloan as well as Dr. Castillo. I will place the patient on a Holter monitor for home and a small amount of beta-blockade for home. If any changes she is to return. At this time she does not have any signs or symptoms of a pulmonary embolism she has no chest pain shortness of breath no leg pain calf pain or any other symptoms. I warned her if she gets any of these she is to return. 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 Lab Data Labs: Laboratory Results - last 24 hr 12/14/21 12/14/21 12/14/21 11:25 11:25 11:40 WBC 9.2 RBC 3.70 L Hgb 10.5 L Hct 32.3 L MCV 87.3 MCH 28.4 MCHC 32.5 RDW Std Deviation 41.1 RDW Coeff of Jovon 13.1 Plt Count 189 MPV 10.2 Immature Gran % (Auto) 2.100 H Neut % (Auto) 75.7 H Lymph % (Auto) 15.3 L Toombs % (Auto) 6.1 Eos % (Auto) 0.5 Baso % (Auto) 0.3 Absolute Neuts (auto) 7.0 Absolute Lymphs (auto) 1.41 Nucleated RBC % 0 Sodium 138 Potassium 3.7 Chloride 108 H Carbon Dioxide 24.0 Anion Gap 6 BUN 9 Creatinine 0.63 Estim Creat Clear Calc 116.85 Est GFR (MDRD) Af Amer 146 Est GFR (MDRD) Non-Af 121 BUN/Creatinine Ratio 14.2 Glucose 81 Calcium 9.0 Total Bilirubin 0.20 AST 29 ALT 38 Alkaline Phosphatase 69 Total Protein 6.9 Albumin 2.9 L Globulin 4.0 Albumin/Globulin Ratio 0.7 L TSH 2.74 Urine Color Yellow Urine Clarity Clear Urine pH 6.5 Ur Specific Haynes 1.010 Urine Protein Negative Urine Glucose (UA) Normal Urine Ketones 50 H Urine Occult Blood Negative Urine Nitrite Negative Urine Bilirubin Negative Urine Urobilinogen Normal Ur Leukocyte Esterase Negative Urine RBC 0 SEEN Urine WBC 0 SEEN Ur Squamous Epith Cells 0 SEEN Urine Bacteria 0 SEEN Urine Mucus 0 SEEN Discharge Plan Triage Chief Complaint: Palpitations ED Provider: Kristopher Lopez Dx/Rx/DC Orders Clinical Impression: , Tachycardia Instructions: Understanding Tachycardia Prescriptions: New metoprolol tartrate 25 mg tablet 25 mg PO BID Qty: 30 0RF No Action PNV-DHA 27 mg iron-1 mg -300 mg capsule PO Primary Care Provider: Sowmya Baldwin NP Referrals: Kristopher Castillo MD [STAFF PHYSICIAN] - 3-5 Days Dorothy Lee MD [STAFF PHYSICIAN] - 3-5 Days Sowmya Baldwin NP, CLIENT SOLUTIONS SPECIALIST-C [Primary Care Provider] - Disposition Disposition: Home, Self Care What to do if you have Problems For any increased pain, shortness of breath, bleeding, nausea or vomiting, chest pain, or any unexpected problems, contact your Primary Care Provider. Call [facility] ([phone]) or report to the closest Emergency Room. Call 911 if necessary. 12/14/21 1256 <Electronically signed by Kristopher Lopez MD> Cosigner Signature (if applicable): CC: CLIENT SOLUTIONS SPECIALISTJuanita Baldwin Signed Sowmya Baldwin Work Phone: Start: 12-08-2021 End: 12-08-2021 Interactive Developer Office Visit Report Comments: See Note; NOTES: [facility] [address] [place] [address] OFFICE VISIT Date of Service: 12/08/21 MR#: [id number] Acct: [id number] Name: MARTIN CASTELLANOS Rep #: [id number] : 1995 Provider: Dr. Dorothy fields MD Age/Sex: 26/F Location: [facility] [place] Status: Signed Intake Vital Signs 12/08/21 09:02 12/08/21 09:03 Height 5 ft 4 in 5 ft 4 in Weight: 172 lb BMI 29.5 BP 124/56 H Intake Visit Reasons: 32 WK OB Allergies Penicillins Allergy (Intermediate, Verified 11/25/21 09:53) Hives Last Menstral Period: 04/30/21 PFSH PFSH Medical History COVID-19 vaccine series completed Surgical History H/O wisdom tooth extraction Family History Mother Hypertension Grandmother Breast cancer Grandmother Hypertension Social History household members: spouse housing: house 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al status: employed 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 cut cord/dad catch: dad wants to catch and cut : yes PP control planned: unsure discussed possible routes of delivery and associated risks: [] special requests: [] Specific Issue/Plans Covid status: given Flu vaccine: discussed Tdap vaccine: given 10/26/21 Rhogam: na LARC form signed: declined movement and labor precautions reviewed. Problem list reviewed and updated with the most current plan of care details and appropriate orders placed. Relevant counseling for the gestational age provided. Continue routine care and follow up unless otherwise noted in visit notes/problem list details Initial Weight: Not Recorded Date -???-???-???-???-???-???-?? ?-???-???-???-???-???- EGA Weight BP Urine Prot -???-???-???-???-???-???-?? ?-???-???-???-???-???- Glucose FHR FuHt Pres Dilation -???-???-???-???-???-???-?? ?-???-???-???-???-???- Effaced St Visit Note 06/30/21 -???-???-???-???-???-???-?? ?-???-???-???-???-???- 9w 5d 146 lb 2 oz 140/90 -???-???-???-???-???-???-?? ?-???-???-???-???-???- -???-???-???-???-???-???-?? ?-???-???-???-???-???- JV- CRL not consistent with LMP. ANJEL 01/28/22 07/26/21 -???-???-???-???-???-???-?? ?-???-???-???-???-???- 13w 3d 146 lb 2 oz 124/80 Negative -???-???-???-???-???-???-?? ?-???-???-???-???-???- Negative 157 -???-???-???-???-???-???-?? ?-???-???-???-???-???- JV- no lof, vaginal bleeding, or cramping. still has some nausea and can not tolerate chicken. declines gender/ genetic testing, 08/23/21 -???-???-???-???-???-???-?? ?-???-???-???-???-???- 17w 3d 149 lb 6 oz 110/80 Negative -???-???-???-???-???-???-?? ?-???-???-???-???-???- Negative 154 -???-???-???-???-???-???-?? ?-???-???-???-???-???- JV- no lof, vaginal bleeding, or cramping. not feeling movement yet. pt has her anatomy scan next week and is nervous about it due to a fhx of heart defect 09/23/21 -???-???-???-???-???-???-?? ?-???-???-???-???-???- 21w 6d 155 lb 2 oz 130/70 Negative -???-???-???-???-???-???-?? ?-???-???-???-???-???- Negative 150 22 -???-???-???-???-???-???-?? ?-???-???-???-???-???- Sm- no vb lo f good fm nor eular ctx 10/26/21 -???-???-???-???-???-???-?? ?-???-???-???-???-???- 26w 4d 164 lb 6 oz 110/70 Negative -???-???-???-???-???-???-?? ?-???-???-???-???-???- Negative 135 26 -???-???-???-???-???-???-?? ?-???-???-???-???-???- JV- Glucola pending. no complaints today. 11/08/21 -???-???-???-???-???-???-?? ?-???-???-???-???-???- 28w 3d 166 lb 4 oz 100/60 Negative -???-???-???-???-???-???-?? ?-???-???-???-???-???- Negative 151 28 -???-???-???-???-???-???-?? ?-???-???-???-???-???- JV- normal 2 8 week labs, no complaints today. tdap was given last visit. 11/25/21 -???-???-???-???-???-???-?? ?-???-???-???-???-???- 30w 6d 169 lb 2 oz 120/70 Negative -???-???-???-???-???-???-?? ?-???-???-???-???-???- Negative 145 31 -???-???-???-???-???-???-?? ?-???-???-???-???-???- SM- no vb lo f good fm nor egular ctx larc signed. 12/08/21 -???-???-???-???-???-???-?? ?-???-???-???-???-???- 32w 5d 172 lb 124/56 Negative -???-???-???-???-???-???-?? ?-???-???-???-???-???- Negative 140 32 -???-???-???-???-???-???-?? ?-???-???-???-???-???- SM- no vb lo f good fm no regular ctx SM- no vb lof good fm no regular c tx discussed palpitations and dizziness, change in vision with them at times. discussed supportive care and eliminating caffeine if no improvement consider cardio consult ACOG First Trimester First Trimester: Desire for , Alcohol, Tobacco Cessation, Illicit/Recreational Drug/Substance Use, Intimate Partner Violence, Barriers to care, Unstable Housing, Communication Barriers, Environmental/Work Hazards, Anticipated Course of Care, Toxoplasmosis Precations, Use of Any medications, Sexual activity, Exercise, Dental Care, Sauna/Hot tub use, Seat Belt use, Childbirth classes/Hospital facilities, , Travel, Indications for Ultrasound and Screening for Aneuploidy Diagnostics Diagnostics Diagnostics: Blood Type A POSITIVE Antibody Screen NEGATIVE Glucose 1 Hr 50 gm 96 mg/dL (70-140) HIV 1 2 Antibody Non-Reactive (Nonreactive) Rubella IgG Antibody Reactive (Nonreactive) Pap Smear Negative Hgb 11.4 g/dL (12.0-15.0) L Hct 35.0 % (37-47) L Chlamydia DNA (ZULEMA) Negative (Negative) N.gonorrhoeae DNA (ZULEMA) Negative (Negative) Details: HIV: Urine Culture: Sequential Screen: NIPT Screen: Results POC Urinalysis 2 Dip (Clinic) Office Urine Glucose Negative Last Edit by Autumn Felder on 12/08/21 09:06 Office Urine Protein Negative Last Edit by Autumn Felder on 12/08/21 09:06 Coding Level of Care Code OB Routine Diagnoses Seasonal allergies J30.2 Asthma J45.909 Z3A.30 Weeks of gestation: 30 weeks Supervision of normal Z34.90 Family history of congenital anomaly of cardiovascular system Z82.79 Assessment and Plan Assessment and Plan (1) Seasonal allergies: Status: Acute Comment: takes PRN OTC allergy medication (2) Asthma: Status: Acute Comment: as a child, resolved. (3) : Status: Acute Qualifiers: Weeks of gestation: 30 weeks Qualified Code(s): Z3A.30 - 30 weeks gestation of Comment: declined ntd genetics and carrier, NL anatomy scan (4) Supervision of normal : Status: Acute Comment: PRR ANJEL: 02/04/22 surprise Spouse: Itz (5) Family history of congenital anomaly of cardiovascular system: Status: Acute Comment: patient's niece had TGA w/ VSD repair surgically Orders: Orders POC Urinalysis 2 Dip (Clinic) Today 12/08/21 0935 <Electronically signed by Dorothy Lee MD> Date Dorothy Lee MD Cosign Signature: Date (if applicable) CC: Sowmya Baldwin Work Phone: Start: 11-25-2021 End: 11-25-2021 Interactive Developer Office Visit Report Comments: See Note; NOTES: [facility] [address] [place] [address] OFFICE VISIT Date of Service: 11/25/21 MR#: [id number] Acct: [id number] Name: MARTIN CASTELLANOS Rep #: [id number] : 1995 Provider: Dr. Dorothy fields MD Age/Sex: 25/F Location: [facility] [place] Status: Signed Intake Vital Signs 11/25/21 09:50 11/25/21 09:53 Height 5 ft 4 in 5 ft 4 in Weight: 169 lb 2 oz BMI 29.0 BP 120/70 Intake Visit Reasons: 30 WK OB Allergies Penicillins Allergy (Intermediate, Verified 11/25/21 09:53) Hives Medications multivitamin no.47-iron fum 27 mg-folate no.1 1 mg-dha 300 mg capsule (PNV-DHA) cap PO 06/14/21 [History Confirmed 11/25/21] Last Menstral Period: 04/30/21 Zika: Zika virus screening: Negative : No PFSH PFSH Medical History COVID-19 vaccine series completed Surgical History H/O wisdom tooth extraction Family History Mother Hypertension Grandmother Breast cancer Grandmother Hypertension Social History household members: spouse housing: house 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 cut cord/dad catch: dad wants to catch and cut : yes PP control planned: unsure discussed possible routes of delivery and associated risks: [] special requests: [] Specific Issue/Plans Covid status: given Flu vaccine: discussed Tdap vaccine: given 10/26/21 Rhogam: na LARC form signed: declined movement and labor precautions reviewed. Problem list reviewed and updated with the most current plan of care details and appropriate orders placed. Relevant counseling for the gestational age provided. Continue routine care and follow up unless otherwise noted in visit notes/problem list details Initial Weight: Not Recorded Date -???-???-???-???-???-???-?? ?-???-???-???-???-???- EGA Weight BP Urine Prot -???-???-???-???-???-???-?? ?-???-???-???-???-???- Glucose FHR FuHt Pres Dilation -???-???-???-???-???-???-?? ?-???-???-???-???-???- Effaced St Visit Note 06/30/21 -???-???-???-???-???-???-?? ?-???-???-???-???-???- 9w 5d 146 lb 2 oz 140/90 -???-???-???-???-???-???-?? ?-???-???-???-???-???- -???-???-???-???-???-???-?? ?-???-???-???-???-???- JV- CRL not consistent with LMP. ANJEL 01/28/22 07/26/21 -???-???-???-???-???-???-?? ?-???-???-???-???-???- 13w 3d 146 lb 2 oz 124/80 Negative -???-???-???-???-???-???-?? ?-???-???-???-???-???- Negative 157 -???-???-???-???-???-???-?? ?-???-???-???-???-???- JV- no lof, vaginal bleeding, or cramping. still has some nausea and can not tolerate chicken. declines gender/ genetic testing, 08/23/21 -???-???-???-???-???-???-?? ?-???-???-???-???-???- 17w 3d 149 lb 6 oz 110/80 Negative -???-???-???-???-???-???-?? ?-???-???-???-???-???- Negative 154 -???-???-???-???-???-???-?? ?-???-???-???-???-???- JV- no lof, vaginal bleeding, or cramping. not feeling movement yet. pt has her anatomy scan next week and is nervous about it due to a fhx of heart defect 09/23/21 -???-???-???-???-???-???-?? ?-???-???-???-???-???- 21w 6d 155 lb 2 oz 130/70 Negative -???-???-???-???-???-???-?? ?-???-???-???-???-???- Negative 150 22 -???-???-???-???-???-???-?? ?-???-???-???-???-???- Sm- no vb lo f good fm nor eular ctx 10/26/21 -???-???-???-???-???-???-?? ?-???-???-???-???-???- 26w 4d 164 lb 6 oz 110/70 Negative -???-???-???-???-???-???-?? ?-???-???-???-???-???- Negative 135 26 -???-???-???-???-???-???-?? ?-???-???-???-???-???- JV- Glucola pending. no complaints today. 11/08/21 -???-???-???-???-???-???-?? ?-???-???-???-???-???- 28w 3d 166 lb 4 oz 100/60 Negative -???-???-???-???-???-???-?? ?-???-???-???-???-???- Negative 151 28 -???-???-???-???-???-???-?? ?-???-???-???-???-???- JV- normal 2 8 week labs, no complaints today. tdap was given last visit. 11/25/21 -???-???-???-???-???-???-?? ?-???-???-???-???-???- 30w 6d 169 lb 2 oz 120/70 Negative -???-???-???-???-???-???-?? ?-???-???-???-???-???- Negative 145 31 -???-???-???-???-???-???-?? ?-???-???-???-???-???- SM- no vb lo f good fm nor egular ctx larc signed. ACOG First Trimester First Trimester: Desire for , Alcohol, Tobacco Cessation, Illicit/Recreational Drug/Substance Use, Intimate Partner Violence, Barriers to care, Unstable Housing, Communication Barriers, Environmental/Work Hazards, Anticipated Course of Care, Toxoplasmosis Precations, Use of Any medications, Sexual activity, Exercise, Dental Care, Sauna/Hot tub use, Seat Belt use, Childbirth classes/Hospital facilities, , Travel, Indications for Ultrasound and Screening for Aneuploidy Diagnostics Diagnostics Diagnostics: Blood Type A POSITIVE Antibody Screen NEGATIVE Glucose 1 Hr 50 gm 96 mg/dL (70-140) HIV 1 2 Antibody Non-Reactive (Nonreactive) Rubella IgG Antibody Reactive (Nonreactive) Pap Smear Negative Hgb 11.4 g/dL (12.0-15.0) L Hct 35.0 % (37-47) L Chlamydia DNA (ZULEMA) Negative (Negative) N.gonorrhoeae DNA (ZULEMA) Negative (Negative) Details: HIV: Urine Culture: Sequential Screen: NIPT Screen: Results POC Urinalysis 2 Dip (Clinic) Office Urine Glucose Negative Last Edit by Elba Ashraf on 11/25/21 09:57 Office Urine Protein Negative Last Edit by Elba Ashraf on 11/25/21 09:57 Coding Level of Care Code OB Routine Diagnoses Family history of congenital anomaly of cardiovascular system Z82.79 Supervision of normal Z34.90 Z3A.30 Weeks of gestation: 30 weeks Asthma J45.909 Seasonal allergies J30.2 Assessment and Plan Assessment and Plan (1) Family history of congenital anomaly of cardiovascular system: Status: Acute Comment: patient's niece had TGA w/ VSD repair surgically (2) Supervision of normal : Status: Acute Comment: PRR ANJEL: 02/04/22 surprise Spouse: Itz (3) : Status: Acute Qualifiers: Weeks of gestation: 30 weeks Qualified Code(s): Z3A.30 - 30 weeks gestation of Comment: declined ntd genetics and carrier, NL anatomy scan (4) Asthma: Status: Acute Comment: as a child, resolved. (5) Seasonal allergies: Status: Acute Comment: takes PRN OTC allergy medication Orders: Orders POC Urinalysis 2 Dip (Clinic) Today 11/25/21 1023 <Electronically signed by Dorothy Lee MD> Date Dorothy Lee MD Cosigner Signature: Date (if applicable) CC: Sowmya Baldwin Work Phone: Start: 11-08-2021 End: 11-08-2021 Interactive Developer Office Visit Report Comments: See Note; NOTES: [facility] [address] [place] [address]. [address] [place] [address] OFFICE VISIT Date of Service: 11/08/21 MR#: [id number] Acct: [id number] Name: MARTIN CASTELLANOS Rep #: [id number] : 1995 Provider: Dr. Rose Wolfe DO Age/Sex: 25/F Location: [facility] [place] Status: Signed Intake Vital Signs 11/08/21 10:24 Height 5 ft 4 in Weight: 166 lb 4 oz BMI 28.5 BP 100/60 Intake Visit Reasons: 28 WK OB Automotive Vehicle Inspector Required: No Is patient in pain?: No Allergies Penicillins Allergy (Intermediate, Verified 11/08/21 10:24) Hives Medications multivitamin no.47-iron fum 27 mg-folate no.1 1 mg-dha 300 mg capsule cap PO 06/14/21 [History Confirmed 11/08/21] Last Menstral Period: 04/30/21 Zika: Zika virus screening: Negative : No PFSH PFSH Medical History COVID-19 vaccine series completed Surgical History H/O wisdom tooth extraction Family History Mother Hypertension Grandmother Breast cancer Grandmother Hypertension Social History household members: spouse housing: house 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 OB Visit ANJEL Calculator Estimated Delivery Date Method Current WG Current Estimate 01/28/22 Ultrasound #1 28w 3d Other Estimates 02/04/22 LMP (Certain) 27w 3d Expected Delivery Route/Plan Labor Preferences- CB/BF classes: [] labor support person: Itz labor intervention preferences: none pain management options preferred: [] cut cord/dad catch: dad wants to catch and cut : [] PP control planned: [] discussed possible routes of delivery and associated risks: [] special requests: [] Specific Issue/Plans Covid status: given Flu vaccine: discussed Tdap vaccine: given 10/26/21 Rhogam: [] LARC form signed: [] Problem list reviewed and updated with the most current plan of care details and appropriate orders placed. Relevant counseling for the gestational age provided. Continue routine care and follow up unless otherwise noted in visit notes/problem list details Initial Weight: Not Recorded Date -???-???-???-???-???-???-?? ?-???-???-???-???-???- EGA Weight BP Urine Prot -???-???-???-???-???-???-?? ?-???-???-???-???-???- Glucose FHR FuHt Pres Dilation -???-???-???-???-???-???-?? ?-???-???-???-???-???- Effaced St Visit Note 06/30/21 -???-???-???-???-???-???-?? ?-???-???-???-???-???- 9w 5d 146 lb 2 oz 140/90 -???-???-???-???-???-???-?? ?-???-???-???-???-???- -???-???-???-???-???-???-?? ?-???-???-???-???-???- JV- CRL not consistent with LMP. ANJEL 01/28/22 07/26/21 -???-???-???-???-???-???-?? ?-???-???-???-???-???- 13w 3d 146 lb 2 oz 124/80 Negative -???-???-???-???-???-???-?? ?-???-???-???-???-???- Negative 157 -???-???-???-???-???-???-?? ?-???-???-???-???-???- JV- no lof, vaginal bleeding, or cramping. still has some nausea and can not tolerate chicken. declines gender/ genetic testing, 08/23/21 -???-???-???-???-???-???-?? ?-???-???-???-???-???- 17w 3d 149 lb 6 oz 110/80 Negative -???-???-???-???-???-???-?? ?-???-???-???-???-???- Negative 154 -???-???-???-???-???-???-?? ?-???-???-???-???-???- JV- no lof, vaginal bleeding, or cramping. not feeling movement yet. pt has her anatomy scan next week and is nervous about it due to a fhx of heart defect 09/23/21 -???-???-???-???-???-???-?? ?-???-???-???-???-???- 21w 6d 155 lb 2 oz 130/70 Negative -???-???-???-???-???-???-?? ?-???-???-???-???-???- Negative 150 22 -???-???-???-???-???-???-?? ?-???-???-???-???-???- Sm- no vb lo f good fm nor eular ctx 10/26/21 -???-???-???-???-???-???-?? ?-???-???-???-???-???- 26w 4d 164 lb 6 oz 110/70 Negative -???-???-???-???-???-???-?? ?-???-???-???-???-???- Negative 135 26 -???-???-???-???-???-???-?? ?-???-???-???-???-???- JV- Glucola pending. no complaints today. 11/08/21 -???-???-???-???-???-???-?? ?-???-???-???-???-???- 28w 3d 166 lb 4 oz 100/60 Negative -???-???-???-???-???-???-?? ?-???-???-???-???-???- Negative 151 28 -???-???-???-???-???-???-?? ?-???-???-???-???-???- JV- normal 2 8 week labs, no complaints today. tdap was given last visit. ACOG First Trimester First Trimester: Desire for , Alcohol, Tobacco Cessation, Illicit/Recreational Drug/Substance Use, Intimate Partner Violence, Barriers to care, Unstable Housing, Communication Barriers, Environmental/Work Hazards, Anticipated Course of Care, Toxoplasmosis Precations, Use of Any medications, Sexual activity, Exercise, Dental Care, Sauna/Hot tub use, Seat Belt use, Childbirth classes/Hospital facilities, , Travel, Indications for Ultrasound and Screening for Aneuploidy Diagnostics Diagnostics Diagnostics: Blood Type A POSITIVE Antibody Screen NEGATIVE Glucose 1 Hr 50 gm 96 mg/dL (70-140) HIV 1 2 Antibody Non-Reactive (Nonreactive) Rubella IgG Antibody Reactive (Nonreactive) Pap Smear Negative Hgb 11.4 g/dL (12.0-15.0) L Hct 35.0 % (37-47) L Chlamydia DNA (ZULEMA) Negative (Negative) N.gonorrhoeae DNA (ZULEMA) Negative (Negative) Details: HIV: Urine Culture: Sequential Screen: NIPT Screen: Results POC Urinalysis 2 Dip (Clinic) Office Urine Glucose Negative Last Edit by Angelina Blanco on 11/08/21 10:35 Office Urine Protein Negative Last Edit by Angelina Blanco on 11/08/21 10:35 Coding Level of Care Code OB Routine Diagnoses Family history of congenital anomaly of cardiovascular system Z82.79 Supervision of normal Z34.90 Z3A.28 Weeks of gestation: 28 weeks Asthma J45.909 Seasonal allergies J30.2 Assessment and Plan Assessment and Plan (1) Family history of congenital anomaly of cardiovascular system: Status: Acute Comment: patient's niece had TGA w/ VSD repair surgically (2) Supervision of normal : Status: Acute Comment: PRR ANJEL: 02/04/22 surprise Spouse: Itz (3) : Status: Acute Qualifiers: Weeks of gestation: 28 weeks Qualified Code(s): Z3A.28 - 28 weeks gestation of Comment: declined ntd genetics and carrier, NL anatomy scan (4) Asthma: Status: Acute Comment: as a child, resolved. (5) Seasonal allergies: Status: Acute Comment: takes PRN OTC allergy medication Plan Details Other Orders: Orders: POC Urinalysis 2 Dip (Clinic) Today 11/08/21 1037 <Electronically signed by Rose Mahmood DO> Date Rose Mahmood DO Cosigner Signature: Date (if applicable) CC: Sowmya Baldwin Work Phone: Start: 10-26-2021 End: 10-26-2021 Interactive Developer Office Visit Report Comments: See Note; NOTES: [facility] [address] [place] [address] [address] [place] [address] OFFICE VISIT Date of Service: 10/26/21 MR#: [id number] Acct: [id number] Name: MARTIN CASTELLANOS Rep #: [id number] : 1995 Provider: Dr. Rose Wolfe DO Age/Sex: 25/F Location: [facility] [place] Status: Signed Intake Vital Signs 10/26/21 08:31 Height 5 ft 4 in Weight: 164 lb 6 oz BMI 28.2 BP 110/70 Intake Visit Reasons: 26 WK OB Allergies Penicillins Allergy (Intermediate, Verified 10/26/21 08:31) Hives Medications multivitamin no.47-iron fum 27 mg-folate no.1 1 mg-dha 300 mg capsule cap PO 06/14/21 [History Confirmed 10/26/21] Last Menstral Period: 04/30/21 PFSH PFSH Medical History COVID-19 vaccine series completed Surgical History H/O wisdom tooth extraction Family History Mother Hypertension Grandmother Breast cancer Grandmother Hypertension Social History household members: spouse housing: house 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 OB Visit ANJEL Calculator Estimated Delivery Date Method Current WG Current Estimate 01/28/22 Ultrasound #1 26w 4d Other Estimates 02/04/22 LMP (Certain) 25w 4d Expected Delivery Route/Plan Labor Preferences- CB/BF classes: [] labor support person: Itz labor intervention preferences: none pain management options preferred: [] cut cord/dad catch: dad wants to catch and cut : [] PP control planned: [] discussed possible routes of delivery and associated risks: [] special requests: [] Specific Issue/Plans Covid status: given Flu vaccine: discussed Tdap vaccine: given 10/26/21 Rhogam: [] LARC form signed: [] Problem list reviewed and updated with the most current plan of care details and appropriate orders placed. Relevant counseling for the gestational age provided. Continue routine care and follow up unless otherwise noted in visit notes/problem list details Initial Weight: Not Recorded Date -???-???-???-???-???-???-?? ?-???-???-???-???-???- EGA Weight BP Urine Prot -???-???-???-???-???-???-?? ?-???-???-???-???-???- Glucose FHR FuHt Pres Dilation -???-???-???-???-???-???-?? ?-???-???-???-???-???- Effaced St Visit Note 06/30/21 -???-???-???-???-???-???-?? ?-???-???-???-???-???- 9w 5d 146 lb 2 oz 140/90 -???-???-???-???-???-???-?? ?-???-???-???-???-???- -???-???-???-???-???-???-?? ?-???-???-???-???-???- JV- CRL not consistent with LMP. ANJEL 01/28/22 07/26/21 -???-???-???-???-???-???-?? ?-???-???-???-???-???- 13w 3d 146 lb 2 oz 124/80 Negative -???-???-???-???-???-???-?? ?-???-???-???-???-???- Negative 157 -???-???-???-???-???-???-?? ?-???-???-???-???-???- JV- no lof, vaginal bleeding, or cramping. still has some nausea and can not tolerate chicken. declines gender/ genetic testing, 08/23/21 -???-???-???-???-???-???-?? ?-???-???-???-???-???- 17w 3d 149 lb 6 oz 110/80 Negative -???-???-???-???-???-???-?? ?-???-???-???-???-???- Negative 154 -???-???-???-???-???-???-?? ?-???-???-???-???-???- JV- no lof, vaginal bleeding, or cramping. not feeling movement yet. pt has her anatomy scan next week and is nervous about it due to a fhx of heart defect 09/23/21 -???-???-???-???-???-???-?? ?-???-???-???-???-???- 21w 6d 155 lb 2 oz 130/70 Negative -???-???-???-???-???-???-?? ?-???-???-???-???-???- Negative 150 22 -???-???-???-???-???-???-?? ?-???-???-???-???-???- Sm- no vb lo f good fm nor eular ctx 10/26/21 -???-???-???-???-???-???-?? ?-???-???-???-???-???- 26w 4d 164 lb 6 oz 110/70 -???-???-???-???-???-???-?? ?-???-???-???-???-???- 135 26 -???-???-???-???-???-???-?? ?-???-???-???-???-???- JV- Glucola pending. no complaints today. ACOG First Trimester First Trimester: Desire for , Alcohol, Tobacco Cessation, Illicit/Recreational Drug/Substance Use, Intimate Partner Violence, Barriers to care, Unstable Housing, Communication Barriers, Environmental/Work Hazards, Anticipated Course of Care, Toxoplasmosis Precations, Use of Any medications, Sexual activity, Exercise, Dental Care, Sauna/Hot tub use, Seat Belt use, Childbirth classes/Hospital facilities, , Travel, Indications for Ultrasound and Screening for Aneuploidy Diagnostics Diagnostics Diagnostics: Blood Type A POSITIVE Antibody Screen NEGATIVE Glucose 1 Hr 50 gm Pending HIV 1 2 Antibody Non-Reactive (Nonreactive) Rubella IgG Antibody Reactive (Nonreactive) Pap Smear Negative Hgb 11.4 g/dL (12.0-15.0) L Hct 35.0 % (37-47) L Chlamydia DNA (ZULEMA) Negative (Negative) N.gonorrhoeae DNA (ZULEMA) Negative (Negative) Details: HIV: Urine Culture: Sequential Screen: NIPT Screen: Immunizations Adacel(Tdap Adolesn/Adult)(PF) Performing Provider: Rose Mahmood DO Administered by: Angelina Blanco on 10/26/21 08:44 Dose Route Admin Location Lot Number Expiration Date NDC Manufactu rer 0.5 mL IM Right Deltoid [id number] 07/01/23 [id number] [employer] VIS Given Date VIS Provided VIS Publication Date 10/26/21 Single Vaccine 14 Eligibility Eligibility Date Funding Source Not Applicable Coding Level of Care Code OB Routine Diagnoses Family history of congenital anomaly of cardiovascular system Z82.79 Supervision of normal Z34.90 Z3A.26 Weeks of gestation: 26 weeks Asthma J45.909 Seasonal allergies J30.2 Assessment and Plan Assessment and Plan (1) Family history of congenital anomaly of cardiovascular system: Status: Acute Comment: patient's niece had TGA w/ VSD repair surgically (2) Supervision of normal : Status: Acute Comment: PRR ANJEL: 02/04/22 surprise Spouse: Itz (3) : Status: Acute Qualifiers: Weeks of gestation: 26 weeks Qualified Code(s): Z3A.26 - 26 weeks gestation of Comment: declined ntd genetics and carrier, NL anatomy scan (4) Asthma: Status: Acute Comment: as a child, resolved. (5) Seasonal allergies: Status: Acute Comment: takes PRN OTC allergy medication Plan Details Other Orders: Orders: Tdap Immunization Today Z23 POC Urinalysis 2 Dip (Clinic) Today 10/26/21 0853 <Electronically signed by Rose Mahmood DO> Date Rose Mahmood DO Cosign Signature: Date (if applicable) CC: Sowmya Baldwin Work Phone: Start: 09-23-2021 End: 09-23-2021 Interactive Developer Office Visit Report Comments: See Note; NOTES: [facility] [address] [place] [address] OFFICE VISIT Date of Service: 09/23/21 MR#: [id number] Acct: [id number] Name: MARTIN CASTELLANOS Rep #: [id number] : 1995 Provider: Dr. Dorothy fields MD Age/Sex: 25/F Location: [facility] [place] Status: Signed Intake Vital Signs 09/23/21 09:45 Height 5 ft 4 in Weight: 155 lb 2 oz BMI 26.6 BP 130/70 H Intake Visit Reasons: 21WK OB Automotive Vehicle Inspector Required: No Is patient in pain?: No Allergies Penicillins Allergy (Intermediate, Verified 09/23/21 09:45) Hives Medications multivitamin no.47-iron fum 27 mg-folate no.1 1 mg-dha 300 mg capsule cap PO 06/14/21 [History Confirmed 09/23/21] Last Menstral Period: 04/30/21 Zika: Zika virus screening: Negative : No PFSH PFSH Medical History (Updated 09/23/21 @ 10:[address] 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 OB Visit ANJEL Calculator Estimated Delivery Date Method Current WG Current Estimate 01/28/22 Ultrasound #1 21w 6d Other Estimates 02/04/22 LMP (Certain) 20w 6d Expected Delivery Route/Plan Labor Preferences- CB/BF classes: [] labor support person: [] labor intervention preferences: [] pain management options preferred: [] cut cord/dad catch: [] : [] PP control planned: [] discussed possible routes of delivery and associated risks: [] special requests: [] Specific Issue/Plans Covid status: given Flu vaccine: discussed Tdap vaccine: [] Rhogam: [] LARC form signed: [] Problem list reviewed and updated with the most current plan of care details and appropriate orders placed. Relevant counseling for the gestational age provided. Continue routine care and follow up unless otherwise noted in visit notes/problem list details Initial Weight: Not Recorded Date -???-???-???-???-???-???-?? ?-???-???-???-???-???- EGA Weight BP Urine Prot -???-???-???-???-???-???-?? ?-???-???-???-???-???- Glucose FHR FuHt Pres Dilation -???-???-???-???-???-???-?? ?-???-???-???-???-???- Effaced St Visit Note 06/30/21 -???-???-???-???-???-???-?? ?-???-???-???-???-???- 9w 5d 146 lb 2 oz 140/90 -???-???-???-???-???-???-?? ?-???-???-???-???-???- -???-???-???-???-???-???-?? ?-???-???-???-???-???- JV- CRL not consistent with LMP. ANJEL 01/28/22 07/26/21 -???-???-???-???-???-???-?? ?-???-???-???-???-???- 13w 3d 146 lb 2 oz 124/80 Negative -???-???-???-???-???-???-?? ?-???-???-???-???-???- Negative 157 -???-???-???-???-???-???-?? ?-???-???-???-???-???- JV- no lof, vaginal bleeding, or cramping. still has some nausea and can not tolerate chicken. declines gender/ genetic testing, 08/23/21 -???-???-???-???-???-???-?? ?-???-???-???-???-???- 17w 3d 149 lb 6 oz 110/80 Negative -???-???-???-???-???-???-?? ?-???-???-???-???-???- Negative 154 -???-???-???-???-???-???-?? ?-???-???-???-???-???- JV- no lof, vaginal bleeding, or cramping. not feeling movement yet. pt has her anatomy scan next week and is nervous about it due to a fhx of heart defect 09/23/21 -???-???-???-???-???-???-?? ?-???-???-???-???-???- 21w 6d 155 lb 2 oz 130/70 Negative -???-???-???-???-???-???-?? ?-???-???-???-???-???- Negative 150 22 -???-???-???-???-???-???-?? ?-???-???-???-???-???- Sm- no vb lo f good fm nor eular ctx ACOG First Trimester First Trimester: Desire for , Alcohol, Tobacco Cessation, Illicit/Recreational Drug/Substance Use, Intimate Partner Violence, Barriers to care, Unstable Housing, Communication Barriers, Environmental/Work Hazards, Anticipated Course of Care, Toxoplasmosis Precations, Use of Any medications, Sexual activity, Exercise, Dental Care, Sauna/Hot tub use, Seat Belt use, Childbirth classes/Hospital facilities, , Travel, Indications for Ultrasound and Screening for Aneuploidy Diagnostics Diagnostics Diagnostics: Blood Type A POSITIVE Antibody Screen NEGATIVE HIV 1 2 Antibody Non-Reactive (Nonreactive) Rubella IgG Antibody Reactive (Nonreactive) Pap Smear Negative Hgb 12.8 g/dL (12.0-15.0) Hct 38.0 % (37-47) Chlamydia DNA (ZULEMA) Negative (Negative) N.gonorrhoeae DNA (ZULEMA) Negative (Negative) Details: HIV: Urine Culture: Sequential Screen: NIPT Screen: Results POC Urinalysis 2 Dip (Clinic) Office Urine Glucose Negative Last Edit by Angelina Blanco on 09/23/21 09:57 Office Urine Protein Negative Last Edit by Angelina Blanco on 09/23/21 09:57 Coding Level of Care Code OB Routine Diagnoses Family history of congenital anomaly of cardiovascular system Z82.79 Supervision of normal Z34.90 Z3A.21 Weeks of gestation: 21 weeks Asthma J45.909 Seasonal allergies J30.2 Assessment and Plan Assessment and Plan (1) Family history of congenital anomaly of cardiovascular system: Status: Acute Comment: patient's niece had TGA w/ VSD repair surgically (2) Supervision of normal : Status: Acute Comment: PRR ANJEL: 02/04/22 surprise Spouse: Itz Orders: Orders: Glucose Challenge Gest 1H 50g Today CBC W/Diff, Automated Today (3) : Status: Acute Qualifiers: Weeks of gestation: 21 weeks Qualified Code(s): Z3A.21 - 21 weeks gestation of Comment: declined ntd genetics and carrier, NL anatomy scan (4) Asthma: Status: Acute Comment: as a child, resolved. (5) Seasonal allergies: Status: Acute Comment: takes PRN OTC allergy medication Plan Details Other Orders: Orders: POC Urinalysis 2 Dip (Clinic) Today 09/23/21 1014 <Electronically signed by Dorothy Lee MD> Date Dorothy Lee MD Cosigner Signature: Date (if applicable) CC: Sowmya Baldwin Work Phone: Start: 08-23-2021 End: 08-23-2021 Interactive Developer Office Visit Report Comments: See Note; NOTES: [facility] [address] [place] [address] OFFICE VISIT Date of Service: 08/23/21 MR#: [id number] Acct: [id number] Name: MARTIN CASTELLANOS Rep #: [id number] : 1995 Provider: Dr. Rose Wolfe DO Age/Sex: 25/F Location: [facility] [place] Status: Signed Intake Vital Signs 08/23/21 08:52 Height 5 ft 4 in Weight: 149 lb 6 oz BMI 25.6 BP 110/80 Intake Visit Reasons: 17 WK OB Automotive Vehicle Inspector Required: No Is patient in pain?: No Allergies Penicillins Allergy (Intermediate, Verified 08/23/21 08:51) Hives Medications multivitamin no.47-iron fum 27 mg-folate no.1 1 mg-dha 300 mg capsule cap PO 06/14/21 [History Confirmed 08/23/21] Last Menstral Period: 04/30/21 Zika: Zika virus screening: Negative : No PFSH PFSH Medical History COVID-19 vaccine series completed Surgical History H/O wisdom tooth extraction Family History Mother Hypertension Grandmother Breast cancer Grandmother Hypertension Social History household members: spouse housing: house 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 OB Visit ANJEL Calculator Estimated Delivery Date Method Current WG Current Estimate 01/28/22 Ultrasound #1 17w 3d Other Estimates 02/04/22 LMP (Certain) 16w 3d Expected Delivery Route/Plan Labor Preferences- CB/BF classes: [] labor support person: [] labor intervention preferences: [] pain management options preferred: [] cut cord/dad catch: [] : [] PP control planned: [] discussed possible routes of delivery and associated risks: [] special requests: [] Specific Issue/Plans Covid status: [] Flu vaccine: [] Tdap vaccine: [] Rhogam: [] LARC form signed: [] Problem list reviewed and updated with the most current plan of care details and appropriate orders placed. Relevant counseling for the gestational age provided. Continue routine care and follow up unless otherwise noted in visit notes/problem list details Initial Weight: Not Recorded Date -???-???-???-???-???-???-?? ?-???-???-???-???-???- EGA Weight BP Urine Prot -???-???-???-???-???-???-?? ?-???-???-???-???-???- Glucose FHR FuHt Pres Dilation -???-???-???-???-???-???-?? ?-???-???-???-???-???- Effaced St Visit Note 06/30/21 -???-???-???-???-???-???-?? ?-???-???-???-???-???- 9w 5d 146 lb 2 oz 140/90 -???-???-???-???-???-???-?? ?-???-???-???-???-???- -???-???-???-???-???-???-?? ?-???-???-???-???-???- JV- CRL not consistent with LMP. ANJEL 01/28/22 07/26/21 -???-???-???-???-???-???-?? ?-???-???-???-???-???- 13w 3d 146 lb 2 oz 124/80 Negative -???-???-???-???-???-???-?? ?-???-???-???-???-???- Negative 157 -???-???-???-???-???-???-?? ?-???-???-???-???-???- JV- no lof, vaginal bleeding, or cramping. still has some nausea and can not tolerate chicken. declines gender/ genetic testing, 08/23/21 -???-???-???-???-???-???-?? ?-???-???-???-???-???- 17w 3d 149 lb 6 oz 110/80 Negative -???-???-???-???-???-???-?? ?-???-???-???-???-???- Negative 154 -???-???-???-???-???-???-?? ?-???-???-???-???-???- JV- no lof, vaginal bleeding, or cramping. not feeling movement yet. pt has her anatomy scan next week and is nervous about it due to a fhx of heart defect ACOG First Trimester First Trimester: Desire for , Alcohol, Tobacco Cessation, Illicit/Recreational Drug/Substance Use, Intimate Partner Violence, Barriers to care, Unstable Housing, Communication Barriers, Environmental/Work Hazards, Anticipated Course of Care, Toxoplasmosis Precations, Use of Any medications, Sexual activity, Exercise, Dental Care, Sauna/Hot tub use, Seat Belt use, Childbirth classes/Hospital facilities, , Travel, Indications for Ultrasound and Screening for Aneuploidy Diagnostics Diagnostics Diagnostics: Blood Type A POSITIVE Antibody Screen NEGATIVE HIV 1 2 Antibody Non-Reactive (Nonreactive) Rubella IgG Antibody Reactive (Nonreactive) Pap Smear Negative Hgb 12.8 g/dL (12.0-15.0) Hct 38.0 % (37-47) Chlamydia DNA (ZULEMA) Negative (Negative) N.gonorrhoeae DNA (ZULEMA) Negative (Negative) Details: HIV: Urine Culture: Sequential Screen: NIPT Screen: Results POC Urinalysis 2 Dip (Clinic) Office Urine Glucose Negative Last Edit by Angelina Blanco on 08/23/21 09:02 Office Urine Protein Negative Last Edit by Angelina Blanco on 08/23/21 09:02 Coding Level of Care Code OB Routine Diagnoses COVID-19 vaccine series completed Z92.29 Family history of congenital anomaly of cardiovascular system Z82.79 Supervision of normal Z34.90 Z3A.17 Weeks of gestation: 17 weeks Asthma J45.909 Seasonal allergies J30.2 Assessment and Plan Assessment and Plan (1) COVID-19 vaccine series completed: Status: Acute Comment: Feb/Mar 2021 Pfizer (2) Family history of congenital anomaly of cardiovascular system: Status: Acute Comment: patient's niece had TGA w/ VSD repair surgically (3) Supervision of normal : Status: Acute Comment: ANJEL: 02/04/22 Spouse: Itz (4) : Status: Acute Qualifiers: Weeks of gestation: 17 weeks Qualified Code(s): Z3A.17 - 17 weeks gestation of Comment: discussed genetics and carrier (5) Asthma: Status: Acute Comment: as a child (6) Seasonal allergies: Status: Acute Comment: takes PRN OTC allergy medication Plan Details Other Orders: Orders: POC Urinalysis 2 Dip (Clinic) Today 08/23/21908 <Electronically signed by Rose Mahmood DO> Date Rose Mahmood DO Cosigner Signature: Date (if applicable) CC: Sowmya Baldwin Work Phone: Start: 07-26-2021 End: 07-26-2021 Interactive Developer Office Visit Report Comments: See Note; NOTES: [facility] [address] [place], [place] [address] [place] [address] OFFICE VISIT Date of Service: 07/26/21 MR#: [id number] Acct: [id number] Name: MARTIN CASTELLANOS Rep #: [id number] : 1995 Provider: Dr. Rose Wolfe DO Age/Sex: 25/F Location: [facility] [place] Status: Signed Intake Vital Signs 07/26/21 09:02 Height 5 ft 4 in Weight: 146 lb 2 oz BMI 25.0 BP 124/80 H Intake Visit Reasons: 13 WK OB Automotive Vehicle Inspector Required: No Is patient in pain?: No Allergies Penicillins Allergy (Intermediate, Verified 07/26/21 09:01) Hives Medications multivitamin no.47-iron fum 27 mg-folate no.1 1 mg-dha 300 mg capsule cap PO 06/14/21 [History Confirmed 07/26/21] Last Menstral Period: 04/30/21 Zika: Zika virus screening: Negative : No PFSH PFSH Medical History COVID-19 vaccine series completed Surgical History H/O wisdom tooth extraction Family History Mother Hypertension Grandmother Breast cancer Grandmother Hypertension Social History household members: spouse housing: house 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al status: employed 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 OB Visit ANJEL Calculator Estimated Delivery Date Method Current WG Current Estimate 01/28/22 Ultrasound #1 13w 3d Other Estimates 02/04/22 LMP (Certain) 12w 3d Expected Delivery Route/Plan Labor Preferences- CB/BF classes: [] labor support person: [] labor intervention preferences: [] pain management options preferred: [] cut cord/dad catch: [] : [] PP control planned: [] discussed possible routes of delivery and associated risks: [] special requests: [] Specific Issue/Plans Covid status: [] Flu vaccine: [] Tdap vaccine: [] Rhogam: [] LARC form signed: [] Problem list reviewed and updated with the most current plan of care details and appropriate orders placed. Relevant counseling for the gestational age provided. Continue routine care and follow up unless otherwise noted in visit notes/problem list details Initial Weight: Not Recorded Date -???-???-???-???-???-???-?? ?-???-???-???-???-???- EGA Weight BP Urine Prot -???-???-???-???-???-???-?? ?-???-???-???-???-???- Glucose FHR FuHt Pres Dilation -???-???-???-???-???-???-?? ?-???-???-???-???-???- Effaced St Visit Note 06/30/21 -???-???-???-???-???-???-?? ?-???-???-???-???-???- 9w 5d 146 lb 2 oz 140/90 -???-???-???-???-???-???-?? ?-???-???-???-???-???- -???-???-???-???-???-???-?? ?-???-???-???-???-???- JV- CRL not consistent with LMP. ANJEL 01/28/22 07/26/21 -???-???-???-???-???-???-?? ?-???-???-???-???-???- 13w 3d 146 lb 2 oz 124/80 Negative -???-???-???-???-???-???-?? ?-???-???-???-???-???- Negative 157 -???-???-???-???-???-???-?? ?-???-???-???-???-???- JV- no lof, vaginal bleeding, or cramping. still has some nausea and can not tolerate chicken. declines gender/ genetic testing, ACOG First Trimester First Trimester: Desire for , Alcohol, Tobacco Cessation, Illicit/Recreational Drug/Substance Use, Intimate Partner Violence, Barriers to care, Unstable Housing, Communication Barriers, Environmental/Work Hazards, Anticipated Course of Care, Toxoplasmosis Precations, Use of Any medications, Sexual activity, Exercise, Dental Care, Sauna/Hot tub use, Seat Belt use, Childbirth classes/Hospital facilities, , Travel, Indications for Ultrasound and Screening for Aneuploidy Diagnostics Diagnostics Diagnostics: Blood Type A POSITIVE Antibody Screen NEGATIVE HIV 1 2 Antibody Non-Reactive (Nonreactive) Rubella IgG Antibody Reactive (Nonreactive) Pap Smear Negative Hgb 12.8 g/dL (12.0-15.0) Hct 38.0 % (37-47) Chlamydia DNA (ZULEMA) Negative (Negative) N.gonorrhoeae DNA (ZULEMA) Negative (Negative) Details: HIV: Urine Culture: Sequential Screen: NIPT Screen: Results POC Urinalysis 2 Dip (Clinic) Office Urine Glucose Negative Last Edit by Angelina Blanco on 07/26/21 09:13 Office Urine Protein Negative Last Edit by Angelina Blanco on 07/26/21 09:13 Coding Level of Care Code OB Routine Diagnoses COVID-19 vaccine series completed Z92.29 Family history of congenital anomaly of cardiovascular system Z82.79 Z3A.13 Weeks of gestation: 13 weeks Supervision of normal Z34.90 Asthma J45.909 Seasonal allergies J30.2 Assessment and Plan Assessment and Plan (1) COVID-19 vaccine series completed: Status: Acute Comment: Mar 2021 Pfizer (2) Family history of congenital anomaly of cardiovascular system: Status: Acute Comment: patient's niece had TGA w/ VSD repair surgically (3) : Status: Acute Qualifiers: Weeks of gestation: 13 weeks Qualified Code(s): Z3A.13 - 13 weeks gestation of Comment: discussed genetics and carrier (4) Supervision of normal : Status: Acute Comment: NAJEL: 02/04/22 Spouse: Itz (5) Asthma: Status: Acute Comment: as a child (6) Seasonal allergies: Status: Acute Comment: takes PRN OTC allergy medication Plan Details Other Orders: Orders: POC Urinalysis 2 Dip (Clinic) Today 07/26/21 0942 <Electronically signed by Rose Mahmood DO> Date Rose Mahmood DO Cosigner Signature: Date (if applicable) CC: Sowmya Baldwin Work Phone: Start: 06-30-2021 Urine culture CLIENT SOLUTIONS SPECIALIST-C Sowmya Baldwin CLIENT SOLUTIONS SPECIALIST Work Phone: Start: 06-30-2021 End: 06-30-2021 Interactive Developer Office Visit Report Comments: See Note; NOTES: [facility] [address] [place] [address] OFFICE VISIT Date of Service: 06/30/21 MR#: [id number] Acct: [id number] Name: MARTIN CASTELLANOS Rep #: [id number] : 1995 Provider: Dr. Rose Wolfe DO Age/Sex: 25/F Location: [facility] [place] Status: Signed Intake Vital Signs 06/30/21 10:17 Height 5 ft 4 in Weight: 146 lb 2 oz BMI 25.0 BP 140/90 H Intake Visit Reasons: NOB LMP 04/30 Automotive Vehicle Inspector Required: No Is patient in pain?: No Allergies Penicillins Allergy (Intermediate, Verified 06/30/21 10:14) Hives Medications multivitamin no.47-iron fum 27 mg-folate no.1 1 mg-dha 300 mg capsule cap PO 06/14/21 [History Confirmed 06/30/21] Last Menstral Period: 04/30/21 Zika: Zika virus screening: Negative : No PFSH PFSH Medical History COVID-19 vaccine series completed Surgical History H/O wisdom tooth extraction Family History Mother Hypertension Grandmother Breast cancer Grandmother Hypertension Social History household members: spouse housing: house 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al status: employed 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 OB Visit ANJEL Calculator Estimated Delivery Date Method Current WG Current Estimate 01/28/22 Ultrasound #1 9w 5d Other Estimates 02/04/22 LMP (Certain) 8w 5d Estimated Due Date: 02/04/22 Expected Delivery Route/Plan Labor Preferences- CB/BF classes: [] labor support person: [] labor intervention preferences: [] pain management options preferred: [] cut cord/dad catch: [] : [] PP control planned: [] discussed possible routes of delivery and associated risks: [] special requests: [] Specific Issue/Plans Covid status: [] Flu vaccine: [] Tdap vaccine: [] Rhogam: [] LARC form signed: [] Problem list reviewed and updated with the most current plan of care details and appropriate orders placed. Relevant counseling for the gestational age provided. Continue routine care and follow up unless otherwise noted in visit notes/problem list details Initial Weight: Not Recorded Date -???-???-???-???-???-???-?? ?-???-???-???-???-???- EGA Weight BP Urine Prot -???-???-???-???-???-???-?? ?-???-???-???-???-???- Glucose FHR FuHt Pres Dilation -???-???-???-???-???-???-?? ?-???-???-???-???-???- Effaced St Visit Note 06/30/21 -???-???-???-???-???-???-?? ?-???-???-???-???-???- 9w 5d 146 lb 2 oz 140/90 -???-???-???-???-???-???-?? ?-???-???-???-???-???- -???-???-???-???-???-???-?? ?-???-???-???-???-???- JV- CRL not consistent with LMP. ANJEL 01/28/22 Menstrual History Last Menstral Period: 04/30/21 On hormonal BC at conception: No Antepartum Record Genetic Screening: Congenital Heart Defect: Patient (Sister's dght- TGA w/ VSD), Neural Tube Defect: Other, Hemoglobinopathy Or Carrier: Other, Cystic Fibrosis: Other, Chromosome Abnormality: Other, Pradeep-Sachs: Other, Hemophilia: Other, Intellectual Disability/Autism: Other, Recurrent Loss/Stillbirth: Other, Other Structural Defect: Other, Other Genetic Disease: Other and Maternal Metabolic Disorder: Other Infection History: Live with someone with TB or Exposed to TB: No, Patient or Partner has history of Genital Herpes: No, Rash or Viral illness since last mentrual period: No, Prior GBS-Infected child: No, History of STD: No, HIV Infection: No, History of Hepatitis: No, Recent travel outside of [place]: No, Concern for hepatitis exposure: No and Varicella immune: Yes (had chicken pox ) Medical History Medical History: Positive: Pulmonary (e.g.,TB,Asthma) (h/o asthma as achild), Seasonal allergies and Drug/latex allergies/reactions (PCN) and Negative: Diabetes, Hypertension, Heart disease, Auto- immune disorder, Kidney disease/UTI, Neurologic/epilepsy, Psychiatric, Depression/ depression, Hepatitis/liver disease, Varicosities/phlebitis, Thyroid dysfunction, Trauma/domestic violence, History of blood transfusions, D (Rh) Sensitized, Breast, Nursing Assistants Teacher surgery, Operations/hospitalizations , Anesthetic complications, History of abnormal pap, Uterine anomaly/cuauhtemoc, Infertility, Anti-retroviral treatment, Relevant family history and Other ACOG First Trimester First Trimester: Desire for , Alcohol, Tobacco Cessation, Illicit/Recreational Drug/Substance Use, Intimate Partner Violence, Barriers to care, Unstable Housing, Communication Barriers, Environmental/Work Hazards, Anticipated Course of Care, Nurtrition and weight gain, Toxoplasmosis Precations, Use of Any medications, Sexual activity, Exercise, Dental Care, Sauna/Hot tub use, Seat Belt use, Childbirth classes/Hospital facilities, , Travel, Indications for Ultrasound and Screening for Aneuploidy ROS Const Reports system reviewed and no additional complaints, except as documented, Reports fatigue and Denies fever(s) Eyes Reports system reviewed and no additional complaints, except as documented ENT Reports system reviewed and no additional complaints, except as documented Card Denies chest pain and Denies dyspnea Resp Reports system reviewed and no additional complaints, except as documented, Denies cough and Denies dyspnea GI Denies abdominal pain and Reports nausea Reports system reviewed and no additional complaints, except as documented Musc Reports system reviewed and no additional complaints, except as documented Skin/Breast Reports system reviewed and no additional complaints, except as documented Neuro Yes system reviewed and no additional complaints, except as documented Psych Reports system reviewed and no additional complaints, except as documented Endo Reports system reviewed and no additional complaints, except as documented and Reports fatigue Exam Const General: healthy appearing, comfortable and no acute distress Orientation: alert [facility] Head: normal to inspection, normocephalic and atraumatic Ears: hearing grossly normal bilaterally and external ears normal Nose: external nose normal and nares normal Mouth: oral mucosae normal Teeth and gingiva: dentition normal Eyes General: appearance normal, both eyes and all related structures Neck Neck: normal visual inspection, no lymphadenopathy and supple Thyroid: thyroid normal Chest Chest palpation inspection: normal inspection of the chest Breast inspection: normal inspection of the breasts and normal inspection of the axillae Breast palpation: normal palpation of the breasts and normal palpation of the axillae Resp Effort Inspection: normal respiratory effort GI Inspection: normal to inspection Palpation: soft and no hepatosplenomegaly General: bladder normal to palpation External Female Exam: normal external appearance and normal appearance of the urethra Urethra: normal appearance of the urethra Speculum Exam - Vagina: normal appearance of the vagina and normal vaginal discharge Speculum Exam - Cervix: normal appearance of the cervix Bimanual Exam- Vagina Uterus: normal bimanual exam, bladder normal to palpation, non-tender and other Bimanual Exam- Adnexa, other: non-tender Skin General: no rashes or lesions noted Neuro Motor: muscle tone normal throughout and no movement abnormalities noted Extrem General: normal to inspection and full ROM Supplemental Info ACOG book given and patient encouraged to read about nutrition, exercise, weight gain, and food avoidance in . Coding Level of Care Code OB Routine Diagnoses COVID-19 vaccine series completed Z92.29 Family history of congenital anomaly of cardiovascular system Z82.79 Supervision of normal Z34.90 Z34.90 Asthma J45.909 Seasonal allergies J30.2 Assessment and Plan Assessment and Plan (1) COVID-19 vaccine series completed: Status: Acute Comment: Mar 2021 Pfizer (2) Family history of congenital anomaly of cardiovascular system: Status: Acute Comment: patient's niece had TGA w/ VSD repair surgically (3) Supervision of normal : Status: Acute Comment: ANJEL: 02/04/22 Spouse: Itz Orders: Orders: Type Screen Today Hepatitis B Surface Antigen Today Hepatitis C Antibody Today HIV - [facility] Today Syphilis Antibodies Today Rubella IgG Today CBC W/Diff, Automated Today Culture, Urine Today Chlamydia/GC ZULEMA aptima Today Urine Drug Screen ([facility]) Today Plan - Dr. Rose Mahmood, DO: Patient oriented to practice and discussed care expectations and screenings. [facility] [place] [facility] [place]. Discussed routine and specially indicated labs if needed- patient consents to testing. see problem list details for plan information. Optional screening including carrier screenings, neural tube defect screening, sequential screening, and NIPT screening offered to patient and patient chose not to do testing. (4) : Status: Acute Comment: discussed genetics and carrier Orders: Orders: Type Screen Today Hepatitis B Surface Antigen Today Hepatitis C Antibody Today HIV - [facility] Today Syphilis Antibodies Today Rubella IgG Today CBC W/Diff, Automated Today Culture, Urine Today Chlamydia/GC ZULEMA aptima Today Urine Drug Screen ([facility]) Today (5) Asthma: Status: Acute Comment: as a child (6) Seasonal allergies: Status: Acute Comment: takes PRN OTC allergy medication 06/30/21 1122 <Electronically signed by Rose Mahmood DO> Date Rose Mahmood DO Cosigner Signature: Date (if applicable) CC: Sowmya Baldwin Work Phone: Group B Streptococcu s Culture CLIENT SOLUTIONS SPECIALIST-C Sowmya Baldwin CLIENT SOLUTIONS SPECIALIST Work Phone: Viral antigen assay CLIENT SOLUTIONS SPECIALIST-C Prema Baldwin CLIENT SOLUTIONS SPECIALIST Work Phone: Plan of Treatment Date Care Activity Detail Author Start: 04-06-2025 Patient encounter procedure Registered Clinical -Laboratory Specimen Work Phone: Start: 04-06-2025 End: 04-06-2025 Patient encounter procedure [facility] Work Phone: Start: 04-06-2025 Group B Streptococcus Culture Group B Streptococcus Culture [facility] Start: 04-06-2025 Streptococcus agalactiae [Presence] in Unspecified specimen by Organism specific culture [facility] Start: 01-26-2025 CBC W Auto Differential panel - Blood [facility] Start: 01-26-2025 Measurement of glucose 2 hours after glucose challenge for glucose tolerance test [facility] Start: 01-26-2025 Serologic test for syphilis [facility] Start: 01-26-2025 [facility] Start: 11-05-2024 CBC W Auto Differential panel - Blood [facility] Start: 11-05-2024 Hepatitis C antibody measurement [facility] Start: 11-05-2024 Rubella IgG measurement [facility] Start: 11-05-2024 Serologic test for syphilis [facility] Start: 11-05-2024 [facility] Start: 09-19-2022 Procedure Education Eprescribed prescriptions (G8553) [facility] Work Phone: Start: 09-19-2022 Provider Instructions for Treatment Follow up as needed [facility] Work Phone: Start: 02-06-2022 Patient discharge [facility] Work Phone: Start: 02-05-2022 Administration of medication [facility] Work Phone: Start: 02-05-2022 Application of ice collar, cap or bag [facility] Work Phone: Start: 02-05-2022 Catheterization of vein [facility] Work Phone: Start: 02-05-2022 Introduction of urinary catheter [facility] Work Phone: Start: 02-05-2022 Measuring intake and output [facility] Work Phone: Start: 02-05-2022 Notification of physician [facility] Work Phone: Start: 02-05-2022 Procedure discontinued [facility] Work Phone: Start: 02-05-2022 Provision of activity privileges [facility] Work Phone: Start: 02-05-2022 Vital signs measurements [facility] Work Phone: Start: 02-05-2022 [facility] Work Phone: Start: 02-04-2022 Admission procedure [facility] Work Phone: Start: 12-14-2021 Ambulatory ECG [facility] Work Phone: Start: 08-09-2020 Procedure Education Eprescribed prescriptions (G8553) [facility] Work Phone: Start: 08-09-2020 Provider Instructions for Treatment [facility] Work Phone: Start: 08-09-2020 Hpv, dna, amp probe HPV Auto Reflex PAP (10781) [facility] Work Phone: Start: 06-16-2019 Procedure Education Eprescribed prescriptions (G8553) [facility]; [facility] Work Phone: Start: 06-16-2019 Provider Instructions for Treatment [facility] Work Phone: Start: 06-10-2018 Procedure Education Eprescribed prescriptions (G8553) [facility]; [facility] Work Phone: Start: 06-10-2018 Provider Instructions for Treatment [facility] Work Phone: Start: 05-23-2017 Procedure Education Eprescribed prescriptions (G8553) [facility]; [facility] Work Phone: Start: 05-23-2017 Provider Instructions for Treatment *URI Treatment [facility]; [facility] Work Phone: Start: 05-23-2017 Cul bact xcpt urine blood/stool aerobic isol [facility] Work Phone: Start: 05-23-2017 Iaadiadoo streptococcus group a Rapid Strep Test, Office (77535) [facility]; [facility] Work Phone: Start: 05-23-2017 S. pyogenes Ag IA Ql (Unsp spec) Rapid Strep Test, Office (06374) [facility] Work Phone: Start: 08-25-2016 Provider Instructions for Treatment [facility]; [facility] Work Phone: Start: 08-25-2016 Cytp c/v auto thin lyr prepj scr mnl rescr phys Pap - GC Chlamydia (05317) [facility] Work Phone: Beta-hemolytic Streptococcus culture [facility] CBC W Auto Different ial panel - Blood [facility] Erythrocyte mean corpuscular volume determination [facility] Erythrocyte mean corpuscular volume determination [facility] Hematocrit [Volume Fraction] of Blood [facility] Hematocrit [Volume Fraction] of Blood [facility] Hemoglobin [Mass/vol ume] in Blood [facility] Hemoglobin [Mass/vol ume] in Blood [facility] Hepatitis B virus mcclelland rface Ag [Presence] in Serum [facility] Hepatitis C antibody measurement [facility] Leukocytes [#/volume ] in Blood [facility] Leukocytes [#/volume ] in Blood [facility] Mean corpuscular hemoglobin concentration determination [facility] Mean corpuscular hemoglobin concentration determination [facility] Mean corpuscular hemoglobin determination [facility] Mean corpuscular hemoglobin determination [facility] Neutrophil count [facility] Neutrophil count [facility] Neutrophil percent differential count [facility] Neutrophil percent differential count [facility] Patient Education [facility] Work Phone: Patient referral [facility] Work Phone: Platelets [#/volume] in Blood [facility] Platelets [#/volume] in Blood [facility] Red blood cell count [facility] Red blood cell count [facility] Red cell distributio n width determination [facility] Red cell distributio n width determination [facility] Rubella IgG measurement [facility] Serologic test for syphilis [facility] Work Phone: [facility] Work Phone: [facility] Immunizations Immunization Date Immunization Notes Care Provider Junior storm 02-11-2025 tetanus toxoid, redu miller diphtheria toxoid, and acellular pertussis vaccine, adsorbed Kiya Greer [employer]IST[employer] Work Phone: [facility] 10-26-2021 tetanus toxoid, redu miller diphtheria toxoid, and acellular pertussis vaccine, adsorbed [employer] Sowmya Baldwin NP Work Phone: [facility] 10-26-2021 diphtheria, tetanus toxoids and acellular pertussis vaccine, unspecified formulation [employer] Sowmya Baldwin [employer]IST Work Phone: [facility] Work Phone: Payers Date Payer Category Payer Private Health Insurance [id number] 2024 Private Health Insurance [id number] 2024 Unknown [id number] 2024 Self-pay [id number] 2022 Unknown [id number] 2020 Unknown [id number] 1995 Unknown [id number] 2.16.84 [id number] 1995 Unknown [id number] 2.16. 840.1.339510.3.579.2.479 1995 Unknown [id number] 2.16. 840.1.054624.3.579.2.479 Unknown Unknown [id number] 2.16.8 40.1.391563.3.579.2.462 Unknown [id number] 2.16.8 40.1.607385.3.579.2.462 Unknown [id number] 2.16.8 40.1.602841.3.579.2.462 Unknown [id number] 2.16.8 40.1.213353.3.579.2.462 Unknown [id number] 2.16.8 40.1.511713.3.579.2.462 Unknown [id number] 2.16.8 40.1.117320.3.579.2.462 Unknown [id number] 2.16.8 40.1.500248.3.579.2.462 Unknown [id number] 2.16.8 40.1.404918.3.579.2.462 Unknown [id number] 2.16.8 40.1.732070.3.579.2.462 Unknown [id number] 2.16.8 40.1.992989.3.579.2.462 Unknown [id number] 2.16.8 40.1.112739.3.579.2.462 Unknown [id number] 2.16.8 40.1.051279.3.579.2.462 Unknown [id number] 2.16.8 40.1.414139.3.579.2.462 Unknown [id number] 2.16.8 40.1.429417.3.579.2.462 Unknown [id number] 2.16.8 40.1.182195.3.579.2.462 Unknown [id number] 2.16.8 40.1.013625.3.579.2.462 Unknown [id number] 2.16.8 40.1.418653.3.579.2.462 Unknown [id number] 2.16.8 40.1.299439.3.579.2.462 Unknown [id number] 2.16.8 40.1.956746.3.579.2.462 Unknown [id number] 2.16.8 40.1.934395.3.579.2.462 Social History Date Type Detail Facility Caffeine use Caffeine use [facility] Work Phone: Comment on above: 3 cups coffee daily Living Situation: Living Situation: [facility] Work Phone: Living Situation: Living Situation: [facility] Work Phone: Start: 10-26-2021 End: 02-04-2022 Tobacco smoking status NHIS Unknown if ever smoked [facility] Work Phone: Start: 1995 Sex Assigned At Female [facility] Living Situation: Living Situation: [facility] Work Phone: Comment on above: one child Start: 09-19-2024 Tobacco smoking status NHIS Never smoked tobacco (finding) [facility] Start: 10-01-2024 Sex Female (finding) [facility] Sex Female [facility] Goals Date Patient Goal Desired Activity /State Mental Status Date Assessment Result Facility 12-14-2021 Cognitive function Level Of Cons ciousness Awake;Alert;Appropriate;Follow s Commands;Responds to vocal stimuli [facility] Work Phone: Clinical Notes 09-29-2024 to 03-23-2025 Note Date & Type Note Facility 03-23-2025 Progress note [facility] 03-09-2025 Progress note [facility] 02-25-2025 Progress note [facility] 02-11-2025 Progress note [facility] 01-26-2025 Progress note [facility] 12-31-2024 Evaluation note Diagnosis Onset Date Resolution Anxiety acute December 31 8:34am Depression acute December 31 8:34am Family history of transposition of great vessels acute December 31, 2024 8:34am History of atony of uterus acute December 31, 2024 8:34am acute December 31 8:34am Supervision of normal acute December 31, 2024 8:34am Anxiety acute January 26 9:03am Depression acute January 26 9:03am Family history of transposition of great vessels acute January 26 9:03am History of atony of uterus acute January 26 9:03am acute January 26 9:03am Supervision of normal acute January 26 9:03am Anxiety acute February 11, 2025 9:38am Depression acute February 11, 2025 9:38am Family history of transposition of great vessels acute February 11 9:38am History of atony of uterus acute February 11 9:38am acute February 11, 2025 9:38am Supervision of normal acute February 11 9:38am Anxiety acute February 9:15am Depression acute February 9:15am Family history of transposition of great vessels acute February 25, 2025 9:15am History of atony of uterus acute February 25, 2025 9:15am acute February 9:15am Supervision of normal acute February 25, 2025 9:15am Anxiety acute February 9:23am Depression acute February 9:23am Family history of transposition of great vessels acute March 09, 2025 9:23am History of atony of uterus acute March 09, 2025 9:23am acute February 9:23am Supervision of normal acute March 09, 2025 9:23am Anxiety acute March 23, 2025 1:39pm Depression acute March 23, 2025 1:39pm Family history of transposition of great vessels acute March 23 1:39pm History of atony of uterus acute March 23 1:39pm acute March 23, 2025 1:39pm Supervision of normal acute March 23 1:39pm Anxiety acute April 06, 2025 2:13pm Depression acute April 06, 2025 2:13pm Family history of transposition of great vessels acute April 06 2:13pm History of atony of uterus acute April 06 2:13pm acute April 06, 2025 2:13pm Supervision of normal acute April 06 2:13pm [facility] Work Phone: 1(105) 223-245606-23-2025 Evaluation note* Diagnosis Onset Date Resolution Status Admit Date Anxiety acute December 01 10:07am Depression acute December 01 10:07am History of atony of uterus acute December 01, 2024 10:07am acute December 01 10:07am Supervision of normal acute December 01, 2024 10:07am Anxiety acute December 31 8:34am Depression acute December 31 8:34am Family history of transposition of great vessels acute J dejan 2024 8:34am History of atony of uterus acute December 31, 2024 8:34am acute December 31 8:34am Supervision of normal acute December 31, 2024 8:34am Anxiety acute January 26 025 9:03am Depression acute January 26 025 9:03am Family history of transposition of great vessels acute A ugust 2024 9:03am History of atony of uterus acute January 26 9:03am acute January 26, 025 9:03am Supervision of normal acute January 26 9:03am Anxiety acute February 11, 2025 9:38am Depression acute February 11, 2025 9:38am Family history of transposition of great vessels acute S epte2024 9:38am History of atony of uterus acute February 11 9:38am acute February 11, 2025 9:38am Supervision of normal acute February 11 9:38am Anxiety acute February 9:15am Depression acute February 9:15am Family history of transposition of great vessels acute S eptember 2024 9:15am History of atony of uterus acute February 25, 2025 9:15am acute February 9:15am Supervision of normal acute February 25, 2025 9:15am Anxiety acute February 9:23am Depression acute February 9:23am Family history of transposition of great vessels acute S eptember 2024 9:23am History of atony of uterus acute March 09, 2025 9:23am acute February 9:23am Supervision of normal acute March 09, 2025 9:23am [facility] Work Phone: 1(136) 348-550906-23-2025 [facility] [address] [place] [address], [address] [place] [address] OFFICE VISIT Date of Service: 12/01/24 MR#: [id number] Acct: [id number] Name: MARTIN CASTELLANOS Rep #: [id number] : 1995 Provider: Dr. Vishnu Lee MD Age/Sex: 29/F Location: [facility] [place] Status: Signed Intake Vital Signs 09/29/24 10:27 11/05/24 08:44 12/01/24 10:16 Height 5 ft 4 in 5 ft 4 in 5 ft 4 in Weight: 181 lb 4 oz BMI 31.1 BP 137/73 H Intake Visit Reasons: 18 wk ob Automotive Vehicle Inspector Required: No Is patient in pain?: No Feel stressed/tense/nervous/anxious/difficulty sleeping: not at all Allergies Penicillins Allergy (Intermediate, Verified 06/23/25 10:17) Hives Medications ?Medication ?Instructions ?Recorded ?Confirmed ?Type multivitamin no.47-iron fum 27 1 cap PO Check with wang elder doctor 06/14/21 History mg-folate no.1 1 mg-dha 300 mg capsule (PNV-DHA) cholecalciferol (vitamin D3) 125 125 mcg PO QDAY 04/2812/01/24 History mcg (5,000 unit) capsule magnesium gluconate 30 mg tablet 30 mg PO QDAY 4 12/01/24 History sertraline 50 mg tablet (Zoloft) 50 mg PO DAILY #90 ta bs 04/28/24 12/01/24 Rx cetirizine 10 mg tablet (Zyrtec) 10 mg PO QDAY PRN 05/0512/01/24 History Last Menstrual Period: 07/23/24 Zika: Zika virus screening: Negative : No PFSH PFSH Medical History 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 Vaginal delivery COVID-19 vaccine series completed Surgical History H/O wisdom tooth extraction Family History Mother Hypertension Grandmother Breast cancer Paternal grt Grandmother Grandmother Hypertension Breast cancer, Onset Age: 60 Paternal Social History adopted: No household members: spouse housing: house number of children: 1 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al status: employed 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 [employer] pets and animals: Yes pets and animals: dog(s) history of recent travel: No sexually active: Yes Smoking Status: Never smoker second hand exposure: Yes alcohol intake: current alcohol intake frequency: holidays/special occasions only details: not while substance use type: does not use well-balanced diet: daily or most days caffeine: Yes Type: coffee Number of servings: 1 eating out: rarely or never during the past year weight has: remained stable what type of physical activity do you participate in: other details: [place] frequency: 3-4 times per week duration: 30-45 minutes/day juan alberto/lutheran: Druze seatbelt use: always do you feel safe at home: Yes additional social history: - Itz History 2 Elective abortions Hx Para 1 Spontaneous abortions Hx # Term Pregnancies Ectopic pregnancies Hx # Pregnancies Multiple births # of living children 1 Past Pregnancies Del. Date Name GA/Weeks Outcome Route Bth Weight Gen Labor Lgth Anesthesia Del Locatn Provider FOB 02/05/22 Michael 41 live - full term 8#3oz Female epidu ral [facility] Dorothy Mobley Delivery Date: 02/05/22 Last Updated by: Ruthie Costello see problem list for complications, and 41 IOL postdates sm girl michael atony HPI 18 wk ob Details: MARTIN CASTELLANOS is a 29 year old who presents for routine OB visit. OB Visit ANJEL Calculator Estimated Delivery Date Method Current WG Current Estimate 04/29/25 LMP (Certain) 18w 5d Expected Delivery Route/Plan Labor Preferences- CB/BF classes: [] labor support person: [] labor intervention preferences: [] pain management options preferred: [] cut cord/dad catch: [] : [] PP control planned: [] discussed possible routes of delivery and associated risks: [] special requests: [] Specific Issue/Plans Covid status: [] Flu vaccine: [] Tdap vaccine: [] Rhogam: [] LARC form signed: [] Problem list reviewed and updated with the most current plan of care details and appropriate ordersplaced. Relevant counseling for the gestational age provided. Continue routine care and follow up unless otherwise noted in visit notes/problem list details Initial Weight: Not Recorded Date -?-?-?-?-?-?-?-?-?-?-?-?- EGA Weight BP Urine Prot -?-?-?-?-?-?--?-?-?-?-?-?- Glucose FHR FuHt Pres Dilation -?-?-?-?-?-?-?-?-?-?-?-?- Effaced St Visit Note 09/29/24 -?-?-?-?-?-?-?-?-?-?-?-?- 9w 5d 171 lb 4 oz 129/78 -?-?-?-?-?-?-?-?-?-?-?-?- 165 -?-?-?-?-?-?-?-?-?-?-?-?- SM- CRL 3.2 cm c ons with LMP 11/05/24 -?-?-?-?-?-?-?-?-?-?-?-?- 15w 0d 179 lb 2 oz 125/85 Nega tive -?-?-?-?-?-?-?-?-?-?-?-?- Negative 160 -?-?-?-?-?-?-?-?-?-?-?-?- JV- no complaint s today. anatomy scan ordered. bedside scan looks great with movement. patient reassured. 12/01/24 -?-?-?-?-?-?-?-?-?-?-?-?- 18w 5d 181 lb 4 oz 137/73 Nega tive -?-?-?-?-?-?-?-?-?-?-?-?- Negative 150 -?-?-?-?-?-?-?-?-?-?-?-?- Sm- no vb crampi ng anzered quesitons about hemorrhage pp anatomy scan today ACOG First Trimester First Trimester: Desire for , Alcohol, Tobacco Cessation, Illicit/Recreational Drug/Substance Use, Intimate Partner Violence, Barriers to care, Unstable Housing, Communication Barriers, Environmental/Work Hazards, Anticipated Course of Care, Toxoplasmosis Precations, Use of Any med ications, Sexual activity, Exercise, Dental Care, Sauna/Hot tub use, Seat Belt use, Childbirth classes/Hospital facilities, Travel, Indications for Ultrasound and Screening for Aneuploidy; Discussed Results POC Urinalysis 2 Dip (Clinic) Office Urine Glucose Negative Last Edit by Suzanne Garcia on 12/01/24 10:30 Office Urine Protein Negative Last Edit by Suzanne Garcia on 12/01/24 10:30 Coding Level of Care Code OB Routine Diagnoses History of atony of uterus Z87.59 18 weeks gestation of Z3A.18 Weeks of gestation: 18 weeks Supervision of normal Z34.90 Depression, unspecified depression type F32.A Depression Type: unspecified Anxiety F41.9 Assessment and Plan Assessment and Plan (1) History of atony of uterus: Status: Acute (2) : Status: Acute Qualifiers: Weeks of gestation: 18 weeks Qualified Code(s): Z3A.18 - 18 weeks gestation of Comment: Requests docs or Suzanne only. declined NIPT & Carrier testing (3) Supervision of normal : Status: Acute Comment: PRR , ANJEL 04/29, PC Michael, Itz (4) Depression: Status: Acute Qualifiers: Depression Type: unspecified Qualified Code(s): F32.A - Depression, unspecified (5) Anxiety: Status: Acute Comment: Zoloft. counseling recommended. Orders: Orders POC Urinalysis 2 Dip (Clinic) Today 12/01/24 1055 naseem URBINA> Date _ Dorothy Lee MD Cosigner Signature: Date (if applicable) CC: ~ [facility]05-28-2025 Evaluation note* Diagnosis Onset Date Resolution Status Admit Date Anxiety acute November 05, 2024 8:39am Depression acute November 05, 2024 8:39am History of atony of uterus acute November 05, 2024 8 :39am acute November 05, 2024 8:39am Supervision of normal acut e November 05, 2024 8:39am Anxiety acute December 01 10:07am Depression acute December 01 10:07am History of atony of uterus acute December 01, 2024 10:07am acute December 01 10:07am Supervision of normal acut e December 01, 2024 10:07am Anxiety acute December 31 8:34am Depression acute December 31 8:34am Family history of transposit ion of great vessels acute December 31, 2024 8:34am History of atony of uterus acute December 31, 2024 8:34am acute December 31 8:34am Supervision of normal acut e December 31, 2024 8:34am Anxiety acute January 26 9:03am Depression acute January 26 9:03am Family history of transposit ion of great vessels acute January 26 9:03am History of atony of uterus acute January 26 9:03am acute January 26 9:03am Supervision of normal acut e January 26, 2025 9:03am [facility] Work Phone: 1(282) 527-424305-28-2025 Evaluation note* Diagnosis Onset Date Resolution Status Admit Date Anxiety acute November 05, 2024 8:39am Depression acute November 05, 2024 8:39am History of atony of uterus acute November 05, 2024 8 :39am acute November 05, 2024 8:39am Supervision of normal acute November 05, 2024 8 :39am Anxiety acute December 01 10:07am Depression acute December 01 10:07am History of atony of uterus acute December 01, 2024 10:07am acute December 01 10:07am Supervision of normal acute December 01, 2024 10:07am Anxiety acute December 31 8:34am Depression acute December 31 8:34am Family history of transposition of great vessels acute J dejan2024 8:34am History of atony of uterus acute December 31, 2024 8:34am acute December 31 8:34am Supervision of normal acute December 31, 2024 8:34am Anxiety acute January 26 9:03am Depression acute January 26 9:03am Family history of transposition of great vessels acute A ugust 2024 9:03am History of atony of uterus acute January 26 9:03am acute January 26 9:03am Supervision of normal acute January 26 9:03am Anxiety acute February 11, 2025 9:38am Depression acute February 11, 2025 9:38am Family history of transposition of great vessels acute S epte2024 9:38am History of atony of uterus acute February 11 9:38am acute February 11, 2025 9:38am Supervision of normal acute February 11 9:38am [facility] Work Phone: 1(794) 705-294405-28-2025 Evaluation note* Diagnosis Onset Date Resolution Status Admit Date Anxiety acute November 05, 2024 8:39am Depression acute November 05, 2024 8:39am History of atony of uterus acute November 05, 2024 8 :39am acute November 05, 2024 8:39am Supervision of normal acute November 05, 2024 8 :39am Anxiety acute December 01 10:07am Depression acute December 01 10:07am History of atony of uterus acute December 01, 2024 10:07am acute December 01 10:07am Supervision of normal acute December 01, 2024 10:07am Anxiety acute December 31 8:34am Depression acute December 31 8:34am Family history of transposition of great vessels acute J dejan 2024 8:34am History of atony of uterus acute December 31, 2024 8:34am acute December 31 8:34am Supervision of normal acute December 31, 2024 8:34am Anxiety acute January 26 9:03am Depression acute January 26 9:03am Family history of transposition of great vessels acute A ugust 2024 9:03am History of atony of uterus acute January 26 9:03am acute January 26 9:03am Supervision of normal acute January 26 9:03am Anxiety acute February 11, 2025 9:38am Depression acute February 11, 2025 9:38am Family history of transposition of great vessels acute S ep2024 9:38am History of atony of uterus acute February 11 9:38am acute February 11, 2025 9:38am Supervision of normal acute February 11 9:38am Anxiety acute February 9:15am Depression acute February 9:15am Family history of transposition of great vessels acute S eptember 2024 9:15am History of atony of uterus acute February 25, 2025 9:15am acute February 9:15am Supervision of normal acute February 25, 2025 9:15am [facility] Work Phone: 1(699) 268-666005-28-2025 [facility] [address] [place] [address], [address] [place] [address] OFFICE VISIT Date of Service: 11/05/24 MR#: [id number] Acct: [id number] Name: MARTIN CASTELLANOS Rep #: [id number] : 1995 Provider: Dr. Marina Mahmood DO Age/Sex: 28/F Location: [facility] [place] Status: Signed Intake Vital Signs 08/27/24 13:56 09/29/24 10:27 11/05/24 08:41 11/05/24 08:44 Height 5 ft 4 in 5 ft 4 in 5 ft 4 in 5 ft 4 in Weight: 179 lb 2 oz BMI 30.7 BP 125/85 H Intake Visit Reasons: 14wk OB Automotive Vehicle Inspector Required: No Is patient in pain?: No Allergies Penicillins Allergy (Intermediate, Verified 11/05/24 08:41) Hives Medications ?Medication ?Instructions ?Recorded ?Confirmed ?Type multivitamin no.47-iron fum 27 1 cap PO Check with wang elder doctor 06/14/21 11/05/24 History mg-folate no.1 1 mg-dha 300 mg capsule (PNV-DHA) cholecalciferol (vitamin D3) 125 125 mcg PO QDAY 04/2811/05/24 History mcg (5,000 unit) capsule magnesium gluconate 30 mg tablet 30 mg PO QDAY 4 11/05/24 History sertraline 50 mg tablet (Zoloft) 50 mg PO DAILY #90 ta bs 04/28/24 11/05/24 Rx cetirizine 10 mg tablet (Zyrtec) 10 mg PO QDAY PRN 05/0511/05/24 History Last Menstrual Period: 07/23/24 Zika: Zika virus screening: Negative : No PFSH PFSH Medical History 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 Vaginal delivery COVID-19 vaccine series completed Surgical History H/O wisdom tooth extraction Family History Mother Hypertension Grandmother Breast cancer Paternal grt Grandmother Grandmother Hypertension Breast cancer, Onset Age: 60 Paternal Social History adopted: No household members: spouse housing: house number of children: 1 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al status: employed 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 [employer] pets and animals: Yes pets and animals: dog(s) history of recent travel: No sexually active: Yes Smoking Status: Never smoker second hand exposure: Yes alcohol intake: current alcohol intake frequency: holidays/special occasions only details: not while substance use type: does not use well-balanced diet: daily or most days caffeine: Yes Type: coffee Number of servings: 1 eating out: rarely or never during the past year weight has: remained stable what type of physical activity do you participate in: other details: [place] frequency: 3-4 times per week duration: 30-45 minutes/day juan alberto/lutheran: Druze seatbelt use: always do you feel safe at home: Yes additional social history: - Itz History 2 Elective abortions Hx Para 1 Spontaneous abortions Hx # Term Pregnancies Ectopic pregnancies Hx # Pregnancies Multiple births # of living children 1 Past Pregnancies Del. Date Name GA/Weeks Outcome Route Bth Weight Infant Gen Labor Lgth Anesthesia Del Locatn Provider FOB 02/05/22 Michael 41 live - full term 8#3oz Female epidu ral [facility] Dorothy Mobley Delivery Date: 02/05/22 Last Updated by: Ruthie Costello see problem list for complications, and 41 IOL postdates sm girl michael atony HPI 14wk OB Details: MARTIN CASTELLANOS is a 28 year old who presents for routine OB visit. OB Visit ANJEL Calculator Estimated Delivery Date Method Current WG Current Estimate 04/29/25 LMP (Certain) 15w 0d Expected Delivery Route/Plan Labor Preferences- CB/BF classes: [] labor support person: [] labor intervention preferences: [] pain management options preferred: [] cut cord/dad catch: [] : [] PP control planned: [] discussed possible routes of delivery and associated risks: [] special requests: [] Specific Issue/Plans Covid status: [] Flu vaccine: [] Tdap vaccine: [] Rhogam: [] LARC form signed: [] Problem list reviewed and updated with the most current plan of care details and appropriate ordersplaced. Relevant counseling for the gestational age provided. Continue routine care and follow up unless otherwise noted in visit notes/problem list details Initial Weight: Not Recorded Date -?-?-?-?-?-?-?-?-?--?-?-?- EGA Weight BP Urine Prot -?-?-?-?-?-?-?-?-?-?-?-?- Glucose FHR FuHt Pres Dilation -?-?-?-?-?-?-?-?-?-?-?-?- Effaced St Visit Note 09/29/24 -?-?-?-?-?-?-?-?-?-?-?-?- 9w 5d 171 lb 4 oz 129/78 -?-?-?-?-?-?-?-?-?-?-?-?- 165 -?-?-?-?-?-?-?-?-?-?-?-?- SM- CRL 3.2 cm c ons with LMP 11/05/24 -?-?-?-?-?-?-?-?-?-?-?-?- 15w 0d 179 lb 2 oz 125/85 Nega tive -?-?-?-?-?-?-?-?-?-?-?-?- Negative 160 -?-?-?-?-?-?-?-?-?-?-?-?- JV- no complaint s today. anatomy scan ordered. bedside scan looks great with movement. patient reassured. ACOG First Trimester First Trimester: Desire for , Alcohol, Tobacco Cessation, Illicit/Recreational Drug/Substance Use, Intimate Partner Violence, Barriers to care, Unstable Housing, Communication Barriers, Environmental/Work Hazards, Anticipated Course of Care, Toxoplasmosis Precations, Use of Any med ications, Sexual activity, Exercise, Dental Care, Sauna/Hot tub use, Seat Belt use, Childbirth classes/Hospital facilities, Travel, Indications for Ultrasound and Screening for Aneuploidy; Discussed Results POC Urinalysis 2 Dip (Clinic) Office Urine Glucose Negative Last Edit by Angelina Blanco on 11/05/24 08: 53 Office Urine Protein Negative Last Edit by Angelina Blanco on 11/05/24 08: 53 Coding Level of Care Code OB Routine Diagnoses History of atony of uterus Z87.59 15 weeks gestation of Z3A.15 Weeks of gestation: 15 weeks Supervision of normal Z34.90 Depression, unspecified depression type F32.A Depression Type: unspecified Anxiety F41.9 Assessment and Plan Assessment and Plan (1) History of atony of uterus: Status: Acute (2) : Status: Acute Qualifiers: Weeks of gestation: 15 weeks Qualified Code(s): Z3A.15 - 15 weeks gestation of Comment: Requests docs or Suzanne only. declined NIPT & Carrier testing (3) Supervision of normal : Status: Acute Comment: , ANJEL 04/29, PC Michael, Itz (4) Depression: Status: Acute Qualifiers: Depression Type: unspecified Qualified Code(s): F32.A - Depression, unspecified (5) Anxiety: Status: Acute Comment: Zoloft. counseling recommended. Orders: Orders POC Urinalysis 2 Dip (Clinic) Today 11/05/24 0904 marco a Man DO> Date _ Rose Kohli Signature: Date (if applicable) CC: ~ [facility]04-21-2025 Evaluation note* Diagnosis Onset Date Resolution Status Admit Date Anxiety acute September 29 10:06am Depression acute September 29 10:06am History of atony of uterus acute September 29, 2024 10:06am acute September 29 10:06am Supervision of normal acut e September 29, 2024 10:06am [facility] Work Phone: 1(474) 584-401104-21-2025 Evaluation note* Diagnosis Onset Date Resolution Status Admit Date Anxiety acute September 29 10:06am Depression acute September 29 10:06am History of atony of uterus acute September 29, 2024 10:06am acute September 29 10:06am Supervision of normal acut e September 29, 2024 10:06am Anxiety acute November 05, 2024 8:39am Depression acute November 05, 2024 8:39am History of atony of uterus acute November 05, 2024 8 :39am acute November 05, 2024 8:39am Supervision of normal acut e November 05, 2024 8:39am [facility] Work Phone: 1(894) 846-304304-21-2025 Evaluation note* Diagnosis Onset Date Resolution Status Admit Date Anxiety acute September 29 10:06am Depression acute September 29 10:06am History of atony of uterus acute September 29, 2024 10:06am acute September 29 10:06am Supervision of normal acut e September 29, 2024 10:06am Anxiety acute November 05, 2024 8:39am Depression acute November 05, 2024 8:39am History of atony of uterus acute November 05, 2024 8 :39am acute November 05, 2024 8:39am Supervision of normal acut e November 05, 2024 8:39am Anxiety acute December 01 10:07am Depression acute December 01 10:07am History of atony of uterus acute December 01, 2024 10:07am acute December 01 10:07am Supervision of normal acut e December 01, 2024 10:07am [facility] Work Phone: 1(441) 116-618004-21-2025 Evaluation note* Diagnosis Onset Date Resolution Status Admit Date Anxiety acute September 29 10:06am Depression acute September 29 10:06am History of atony of uterus acute September 29, 2024 10:06am acute September 29 10:06am Supervision of normal acut e September 29, 2024 10:06am Anxiety acute November 05, 2024 8:39am Depression acute November 05, 2024 8:39am History of atony of uterus acute November 05, 2024 8 :39am acute November 05, 2024 8:39am Supervision of normal acut e November 05, 2024 8:39am Anxiety acute December 01 10:07am Depression acute December 01 10:07am History of atony of uterus acute December 01, 2024 10:07am acute December 01 10:07am Supervision of normal acut e December 01, 2024 10:07am Anxiety acute December 31 8:34am Depression acute December 31 8:34am Family history of transposit ion of great vessels acute December 31, 2024 8:34am History of atony of uterus acute December 31, 2024 8:34am acute December 31 8:34am Supervision of normal acut e December 31, 2024 8:34am [facility] Work Phone: 1(194) 515-165104-21-2025 Evaluation note* Diagnosis Onset Date Resolution Status Admit Date Anxiety acute September 29 10:06am Depression acute September 29 10:06am History of atony of uterus acute September 29, 2024 10:06am acute September 29 10:06am Supervision of normal acut e September 29, 2024 10:06am Anxiety acute November 05, 2024 8:39am Depression acute November 05, 2024 8:39am History of atony of uterus acute November 05, 2024 8 :39am acute November 05, 2024 8:39am Supervision of normal acut e November 05, 2024 8:39am Anxiety acute December 01 10:07am Depression acute December 01 10:07am History of atony of uterus acute December 01, 2024 10:07am acute December 01 10:07am Supervision of normal acut e December 01, 2024 10:07am Anxiety acute December 31 8:34am Depression acute December 31 8:34am Family history of transposit ion of great vessels acute December 31, 2024 8:34am History of atony of uterus acute December 31, 2024 8:34am acute December 31 8:34am Supervision of normal acut e December 31, 2024 8:34am Anxiety acute January 26, 2 025 9:03am Depression acute January 26 025 9:03am Family history of transposit ion of great vessels acute January 26 9:03am History of atony of uterus acute January 26 9:03am acute January 26, 025 9:03am Supervision of normal acut e January 26, 2025 9:03am [facility] Work Phone: Evaluation note* Diagnosis Onset Date Resolution Status Asthma acute Family history of congenital anomaly of cardiovascular system acute acute Seasonal allergies acute Supervision of normal acute COVID-19 vaccine series completed resolved Asthma acute Family history of congenital anomaly of cardiovascular system acute acute Seasonal allergies acute Supervision of normal acute COVID-19 vaccine series completed resolved Asthma acute Family history of congenital anomaly of cardiovascular system acute acute Seasonal allergies acute Supervision of normal acute COVID-19 vaccine series completed resolved Asthma acute Family history of congenital anomaly of cardiovascular system acute acute Seasonal allergies acute Supervision of normal acute Asthma acute Family history of congenital anomaly of cardiovascular system acute acute Seasonal allergies acute Supervision of normal acute [facility] Work Phone: Evaluation note* Diagnosis Onset Date Resolution Status Asthma acute Family history of congenital anomaly of cardiovascular system acute acute Seasonal allergies acute Supervision of normal acute COVID-19 vaccine series completed resolved Asthma acute Family history of congenital anomaly of cardiovascular system acute acute Seasonal allergies acute Supervision of normal acute Asthma acute Family history of congenital anomaly of cardiovascular system acute acute Seasonal allergies acute Supervision of normal acute Asthma acute Family history of congenital anomaly of cardiovascular system acute acute Seasonal allergies acute Supervision of normal acute Asthma acute Family history of congenital anomaly of cardiovascular system acute acute Seasonal allergies acute Supervision of normal acute Asthma acute Family history of congenital anomaly of cardiovascular system acute acute Seasonal allergies acute Supervision of normal acute [facility] Work Phone: Evaluation note* Diagnosis Onset Date Resolution Status Asthma acute acute Seasonal allergies acute Supervision of normal acute Family history of congenital anomaly of cardiovascular system resolved Asthma acute acute Seasonal allergies acute Supervision of normal acute Family history of congenital anomaly of cardiovascular system resolved Asthma acute acute Seasonal allergies acute Supervision of normal acute Family history of congenital anomaly of cardiovascular system resolved Asthma acute acute Seasonal allergies acute Supervision of normal acute Family history of congenital anomaly of cardiovascular system resolved Asthma acute acute Seasonal allergies acute Supervision of normal acute Family history of congenital anomaly of cardiovascular system resolved tachycardia acute acute Supervision of normal acute Family history of congenital anomaly of cardiovascular system resolved Heart murmur acute Tachycardia acute Asthma acute tachycardia acute Heart murmur acute Palpitations acute acute Seasonal allergies acute Supervision of normal acute Tachycardia acute Family history of congenital anomaly of cardiovascular system resolved [facility] Work Phone: Evaluation note* Diagnosis Onset Date Resolution Status Asthma resolved Family history of congenital anomaly of cardiovascular system resolved resolved Seasonal allergies resolved Supervision of normal resolved Asthma resolved Family history of congenital anomaly of cardiovascular system resolved resolved Seasonal allergies resolved Supervision of normal resolved Asthma resolved Family history of congenital anomaly of cardiovascular system resolved resolved Seasonal allergies resolved Supervision of normal resolved Asthma resolved Family history of congenital anomaly of cardiovascular system resolved resolved Seasonal allergies resolved Supervision of normal resolved Family history of congenital anomaly of cardiovascular system resolved tachycardia resolved resolved Supervision of normal resolved Heart murmur resolved Tachycardia resolved Asthma resolved Family history of congenital anomaly of cardiovascular system resolved tachycardia resolved Heart murmur resolved Palpitations resolved resolved Seasonal allergies resolved Supervision of normal resolved Tachycardia resolved Asthma resolved Family history of congenital anomaly of cardiovascular system resolved tachycardia resolved Heart murmur resolved Palpitations resolved resolved Seasonal allergies resolved Supervision of normal resolved Tachycardia resolved Asthma resolved Family history of congenital anomaly of cardiovascular system resolved tachycardia resolved resolved Seasonal allergies resolved Supervision of normal resolved Asthma resolved Family history of congenital anomaly of cardiovascular system resolved resolved Seasonal allergies resolved Supervision of normal resolved Asthma resolved Family history of congenital anomaly of cardiovascular system resolved resolved Seasonal allergies resolved Supervision of normal resolved 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 acute Vaginal delivery acute Asthma resolved Encounter for induction of labor resolved Family history of congenital anomaly of cardiovascular system resolved resolved Seasonal allergies resolved Supervision of normal resolved [facility] Work Phone: Instructions* Name Dates Details Patient Instructions Indication:Well woman exam (Renamed from Encounter for well woman exam) Start:09-Aug-2020 Instruction Type:Provider Instructions for Treatment How to Access Health Informa tion Online using Patient Portal and [employer] Apps Indication:Well woman exam (Renamed from Encounter for well woman exam) Start:09-Aug-2020 Instruction Type:Patient Education How to access health informa tion online Indication:Well woman exam (Renamed from Encounter for well woman exam) Start:16-Jun-2019 Instruction Type:Patient Education How to access health informa tion online - Detail Indication:Well woman exam (Renamed from Encounter for well woman exam) Start:16-Jun-2019 Instruction Type:Patient Education Patient Instructions Indication:Well woman exam (Renamed from Encounter for well woman exam) Start:16-Jun-2019 Instruction Type:Provider Instructions for Treatment How to access health informa tion online Indication:Nonsmoker Start:10-Jun-2018 Instruction Type:Patient Education How to access health informa tion online - Detail Indication:Nonsmoker Start:10-Jun-2018 Instruction Type:Patient Education Patient Instructions Indication:Nonsmoker Start:10-Jun-2018 Instruction Type:Provider Instructions for Treatment How to access health informa tion online Indication:Acute pharyngitis Start:23-May-2017 Instruction Type:Patient Education Patient Instructions Indication:Acute pharyngitis Start:23-May-2017 Instruction Type:Provider Instructions for Treatment [facility]; [facility] Work Phone: Instructions* Name Dates Details Patient Instructions Indication:Well woman exam (Renamed from Encounter for well woman exam) Start:09-Aug-2020 Instruction Type:Provider Instructions for Treatment How to Access Health Informa tion Online using Patient Portal and [employer] Apps Indication:Well woman exam (Renamed from Encounter for well woman exam) Start:09-Aug-2020 Instruction Type:Patient Education How to access health informa tion online Indication:Well woman exam (Renamed from Encounter for well woman exam) Start:16-Jun-2019 Instruction Type:Patient Education How to access health informa tion online - Detail Indication:Well woman exam (Renamed from Encounter for well woman exam) Start:16-Jun-2019 Instruction Type:Patient Education Patient Instructions Indication:Well woman exam (Renamed from Encounter for well woman exam) Start:16-Jun-2019 Instruction Type:Provider Instructions for Treatment How to access health informa tion online Indication:Nonsmoker Start:10-Jun-2018 Instruction Type:Patient Education How to access health informa tion online - Detail Indication:Nonsmoker Start:10-Jun-2018 Instruction Type:Patient Education Patient Instructions Indication:Nonsmoker Start:10-Jun-2018 Instruction Type:Provider Instructions for Treatment How to access health informa tion online Indication:Acute pharyngitis Start:23-May-2017 Instruction Type:Patient Education Patient Instructions Indication:Acute pharyngitis Start:23-May-2017 Instruction Type:Provider Instructions for Treatment [facility]; [facility] Work Phone: Instructions* Name Dates Details Patient Instructions Indication:Well woman exam (Renamed from Encounter for well woman exam) Start:09-Aug-2020 Instruction Type:Provider Instructions for Treatment How to Access Health Informa tion Online using Patient Portal and [employer] Apps Indication:Well woman exam (Renamed from Encounter for well woman exam) Start:09-Aug-2020 Instruction Type:Patient Education How to access health informa tion online Indication:Well woman exam (Renamed from Encounter for well woman exam) Start:16-Jun-2019 Instruction Type:Patient Education How to access health informa tion online - Detail Indication:Well woman exam (Renamed from Encounter for well woman exam) Start:16-Jun-2019 Instruction Type:Patient Education Patient Instructions Indication:Well woman exam (Renamed from Encounter for well woman exam) Start:16-Jun-2019 Instruction Type:Provider Instructions for Treatment How to access health informa tion online Indication:Nonsmoker Start:10-Jun-2018 Instruction Type:Patient Education How to access health informa tion online - Detail Indication:Nonsmoker Start:10-Jun-2018 Instruction Type:Patient Education Patient Instructions Indication:Nonsmoker Start:10-Jun-2018 Instruction Type:Provider Instructions for Treatment How to access health informa tion online Indication:Acute pharyngitis Start:23-May-2017 Instruction Type:Patient Education Patient Instructions Indication:Acute pharyngitis Start:23-May-2017 Instruction Type:Provider Instructions for Treatment [facility]; [facility] Work Phone: Instructions* Name Dates Details Patient Instructions Indication:Well woman exam (Renamed from Encounter for well woman exam) Start:09-Aug-2020 Instruction Type:Provider Instructions for Treatment How to Access Health Informa tion Online using Patient Portal and [employer] Apps Indication:Well woman exam (Renamed from Encounter for well woman exam) Start:09-Aug-2020 Instruction Type:Patient Education How to access health informa tion online Indication:Well woman exam (Renamed from Encounter for well woman exam) Start:16-Jun-2019 Instruction Type:Patient Education How to access health informa tion online - Detail Indication:Well woman exam (Renamed from Encounter for well woman exam) Start:16-Jun-2019 Instruction Type:Patient Education Patient Instructions Indication:Well woman exam (Renamed from Encounter for well woman exam) Start:16-Jun-2019 Instruction Type:Provider Instructions for Treatment How to access health informa tion online Indication:Nonsmoker Start:10-Jun-2018 Instruction Type:Patient Education How to access health informa tion online - Detail Indication:Nonsmoker Start:10-Jun-2018 Instruction Type:Patient Education Patient Instructions Indication:Nonsmoker Start:10-Jun-2018 Instruction Type:Provider Instructions for Treatment How to access health informa tion online Indication:Acute pharyngitis Start:23-May-2017 Instruction Type:Patient Education Patient Instructions Indication:Acute pharyngitis Start:23-May-2017 Instruction Type:Provider Instructions for Treatment [facility]; [facility] Work Phone: Instructions* Name Dates Details Patient Instructions Indication:Well woman exam (Renamed from Encounter for well woman exam) Start:09-Aug-2020 Instruction Type:Provider Instructions for Treatment How to Access Health Informa tion Online using Patient Portal and [employer] Apps Indication:Well woman exam (Renamed from Encounter for well woman exam) Start:09-Aug-2020 Instruction Type:Patient Education How to access health informa tion online Indication:Well woman exam (Renamed from Encounter for well woman exam) Start:16-Jun-2019 Instruction Type:Patient Education How to access health informa tion online - Detail Indication:Well woman exam (Renamed from Encounter for well woman exam) Start:16-Jun-2019 Instruction Type:Patient Education Patient Instructions Indication:Well woman exam (Renamed from Encounter for well woman exam) Start:16-Jun-2019 Instruction Type:Provider Instructions for Treatment How to access health informa tion online Indication:Nonsmoker Start:10-Jun-2018 Instruction Type:Patient Education How to access health informa tion online - Detail Indication:Nonsmoker Start:10-Jun-2018 Instruction Type:Patient Education Patient Instructions Indication:Nonsmoker Start:10-Jun-2018 Instruction Type:Provider Instructions for Treatment How to access health informa tion online Indication:Acute pharyngitis Start:23-May-2017 Instruction Type:Patient Education Patient Instructions Indication:Acute pharyngitis Start:23-May-2017 Instruction Type:Provider Instructions for Treatment [facility]; [facility] Work Phone: Instructions* Name Dates Details Patient Instructions Indication:Well woman exam (Renamed from Encounter for well woman exam) Start:09-Aug-2020 Instruction Type:Provider Instructions for Treatment How to Access Health Informa tion Online using Patient Portal and [employer] Apps Indication:Well woman exam (Renamed from Encounter for well woman exam) Start:09-Aug-2020 Instruction Type:Patient Education How to access health informa tion online Indication:Well woman exam (Renamed from Encounter for well woman exam) Start:16-Jun-2019 Instruction Type:Patient Education How to access health informa tion online - Detail Indication:Well woman exam (Renamed from Encounter for well woman exam) Start:16-Jun-2019 Instruction Type:Patient Education Patient Instructions Indication:Well woman exam (Renamed from Encounter for well woman exam) Start:16-Jun-2019 Instruction Type:Provider Instructions for Treatment How to access health informa tion online Indication:Nonsmoker Start:10-Jun-2018 Instruction Type:Patient Education How to access health informa tion online - Detail Indication:Nonsmoker Start:10-Jun-2018 Instruction Type:Patient Education Patient Instructions Indication:Nonsmoker Start:10-Jun-2018 Instruction Type:Provider Instructions for Treatment How to access health informa tion online Indication:Acute pharyngitis Start:23-May-2017 Instruction Type:Patient Education Patient Instructions Indication:Acute pharyngitis Start:23-May-2017 Instruction Type:Provider Instructions for Treatment [facility]; [facility] Work Phone: Instructions* Name Dates Details Patient Instructions Indication:Nonsmoker Start:19-Sep-2022 Instruction Type:Provider Instructions for Treatment How to Access Health Informa tion Online using Patient Portal and [employer] Indication:Nonsmoker Start:19-Sep-2022 Instruction Type:Patient Education Patient Instructions Indication:Well woman exam (Renamed from Encounter for well woman exam) Start:09-Aug-2020 Instruction Type:Provider Instructions for Treatment How to Access Health Informa tion Online using Patient Portal and [employer] Apps Indication:Well woman exam (Renamed from Encounter for well woman exam) Start:09-Aug-2020 Instruction Type:Patient Education How to access health informa tion online Indication:Well woman exam (Renamed from Encounter for well woman exam) Start:16-Jun-2019 Instruction Type:Patient Education How to access health informa tion online - Detail Indication:Well woman exam (Renamed from Encounter for well woman exam) Start:16-Jun-2019 Instruction Type:Patient Education Patient Instructions Indication:Well woman exam (Renamed from Encounter for well woman exam) Start:16-Jun-2019 Instruction Type:Provider Instructions for Treatment How to access health informa tion online Indication:Nonsmoker Start:10-Jun-2018 Instruction Type:Patient Education How to access health informa tion online - Detail Indication:Nonsmoker Start:10-Jun-2018 Instruction Type:Patient Education Patient Instructions Indication:Nonsmoker Start:10-Jun-2018 Instruction Type:Provider Instructions for Treatment How to access health informa tion online Indication:Acute pharyngitis Start:23-May-2017 Instruction Type:Patient Education Patient Instructions Indication:Acute pharyngitis Start:23-May-2017 Instruction Type:Provider Instructions for Treatment [facility] Work Phone: Instructions* Name Dates Details Patient Instructions Indication:Nonsmoker Start:19-Sep-2022 Instruction Type:Provider Instructions for Treatment How to Access Health Informa tion Online using Patient Portal and Soluto Indication:Nonsmoker Start:19-Sep-2022 Instruction Type:Patient Education Patient Instructions Indication:Well woman exam (Renamed from Encounter for well woman exam) Start:09-Aug-2020 Instruction Type:Provider Instructions for Treatment How to Access Health Informa tion Online using Patient Portal and [employer] Apps Indication:Well woman exam (Renamed from Encounter for well woman exam) Start:09-Aug-2020 Instruction Type:Patient Education How to access health informa tion online Indication:Well woman exam (Renamed from Encounter for well woman exam) Start:16-Jun-2019 Instruction Type:Patient Education How to access health informa tion online - Detail Indication:Well woman exam (Renamed from Encounter for well woman exam) Start:16-Jun-2019 Instruction Type:Patient Education Patient Instructions Indication:Well woman exam (Renamed from Encounter for well woman exam) Start:16-Jun-2019 Instruction Type:Provider Instructions for Treatment How to access health informa tion online Indication:Nonsmoker Start:10-Jun-2018 Instruction Type:Patient Education How to access health informa tion online - Detail Indication:Nonsmoker Start:10-Jun-2018 Instruction Type:Patient Education Patient Instructions Indication:Nonsmoker Start:10-Jun-2018 Instruction Type:Provider Instructions for Treatment How to access health informa tion online Indication:Acute pharyngitis Start:23-May-2017 Instruction Type:Patient Education Patient Instructions Indication:Acute pharyngitis Start:23-May-2017 Instruction Type:Provider Instructions for Treatment [facility] Work Phone: progress note Author [facility] Note Date/Time November 05, 2024 9:04a [facility] [address], [address] [place] [address] OFFICE VISIT Date of Service: 11/05/24 MR#: [id number] Acct: [id number] Name: MARTIN CASTELLANOS Rep #: [id number] : 1995 Provider: Dr. 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 Is patient in pain?: No Allergies Penicillins Allergy (Intermediate, Verified 11/05/24 08:41) Hives Medications ?Medication ?Instructions ?Recorded ?Confirmed ?Type multivitamin no.47-iron fum 27 1 cap PO Check with wang elder doctor 06/14/21 11/05/24 History mg-folate no.1 1 mg-dha 300 mg capsule (PNV-DHA) cholecalciferol (vitamin D3) 125 125 mcg PO QDAY 04/2811/05/24 History mcg (5,000 unit) capsule magnesium gluconate 30 mg tablet 30 mg PO QDAY 4 11/05/24 History sertraline 50 mg tablet (Zoloft) 50 mg PO DAILY #90 ta bs 04/28/24 11/05/24 Rx cetirizine 10 mg tablet (Zyrtec) 10 mg PO QDAY PRN 05/0511/05/24 History Last Menstrual Period: 07/23/24 Zika: Zika virus screening: Negative : No PFSH PFSH Medical History 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 Vaginal delivery COVID-19 vaccine series completed Surgical History H/O wisdom tooth extraction Family History Mother Hypertension Grandmother Breast cancer Paternal grt Grandmother Grandmother Hypertension Breast cancer, Onset Age: 60 Paternal Social History adopted: No household members: spouse housing: house number of children: 1 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al status: employed 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 pets and animals: Yes pets and animals: dog(s) history of recent travel: No sexually active: Yes Smoking Status: Never smoker second hand exposure: Yes alcohol intake: current alcohol intake frequency: holidays/special occasions only details: not while substance use type: does not use well-balanced diet: daily or most days caffeine: Yes Type: coffee Number of servings: 1 eating out: rarely or never during the past year weight has: remained stable what type of physical activity do you participate in: other details: Pelaton frequency: 3-4 times per week duration: 30-45 minutes/day juan alberto/lutheran: Druze seatbelt use: always do you feel safe at home: Yes additional social history: - Itz History 2 Elective abortions Hx Para 1 Spontaneous abortions Hx # Term Pregnancies Ectopic pregnancies Hx # Pregnancies Multiple births # of living children 1 Past Pregnancies Del. Date Name GA/Weeks Outcome Route Bth Weight Infant Gen Labor Lgth Anesthesia Del Locatn Provider FOB 02/05/22 Michael 41 live - full term 8#3oz Female epidu ral [facility] Dorothy Mobley Delivery Date: 02/05/22 Last Updated by: Ruthie Costello see problem list for complications, and 41 IOL postdates sm girl michael atony HPI 14wk OB Details: MARTIN CASTELLANOS is a 28 year old who presents for routine OB visit. OB Visit ANJEL Calculator Estimated Delivery Date Method Current WG Current Estimate 04/29/25 LMP (Certain) 15w 0d Expected Delivery Route/Plan Labor Preferences- CB/BF classes: [] labor support person: [] labor intervention preferences: [] pain management options preferred: [] cut cord/dad catch: [] : [] PP control planned: [] discussed possible routes of delivery and associated risks: [] special requests: [] Specific Issue/Plans Covid status: [] Flu vaccine: [] Tdap vaccine: [] Rhogam: [] LARC form signed: [] Problem list reviewed and updated with the most current plan of care details and appropriate orders placed. Relevant counseling for the gestational age provided. Continue routine care and follow up unless otherwise noted in visit notes/problem list details Initial Weight: Not Recorded Date -?-?-?-?-?-?-?-?-?--?-?-?- EGA Weight BP Urine Prot -?-?-?-?-?-?-?-?-?-?-?-?- Glucose FHR FuHt Pres Dilation -?-?-?-?-?-?-?-?-?-?-?-?- Effaced St Visit Note 09/29/24 -?-?-?-?-?-?-?-?-?-?-?-?- 9w 5d 171 lb 4 oz 129/78 -?-?-?-?-?-?-?-?-?-?-?-?- 165 -?-?-?-?-?-?-?-?-?-?-?-?- SM- CRL 3.2 cm c ons with LMP 11/05/24 -?-?-?-?-?-?-?-?-?-?-?-?- 15w 0d 179 lb 2 oz 125/85 Nega tive -?-?-?-?-?-?-?-?-?-?-?-?- Negative 160 -?-?-?-?-?-?-?-?-?-?-?-?- JV- no complaint s today. anatomy scan ordered. bedside scan looks great with movement. patient reassured. ACOG First Trimester First Trimester: Desire for , Alcohol, Tobacco Cessation, Illicit/Recreational Drug/Substance Use, Intimate Partner Violence, Barriers to care, Unstable Housing, Communication Barriers, Environmental/Work Hazards, Anticipated Course of Care, Toxoplasmosis Precations, Use of Any medications, Sexual activity, Exercise, Dental Care, Sauna/Hot tub use, Seat Belt use, Childbirth classes/Hospital facilities, Travel, Indications for Ultrasound and Screening for Aneuploidy; Discussed Results POC Urinalysis 2 Dip (Clinic) Office Urine Glucose Negative Last Edit by Angelina Blanco on 11/05/24 08: 53 Office Urine Protein Negative Last Edit by Angelina Blanco on 11/05/24 08: 53 Coding Level of Care Code OB Routine Diagnoses History of atony of uterus Z87.59 15 weeks gestation of Z3A.15 Weeks of gestation: 15 weeks Supervision of normal Z34.90 Depression, unspecified depression type F32.A Depression Type: unspecified Anxiety F41.9 Assessment and Plan Assessment and Plan (1) History of atony of uterus: Status: Acute (2) : Status: Acute Qualifiers: Weeks of gestation: 15 weeks Qualified Code(s): Z3A.15 - 15 weeks gestation of Comment: Requests docs or Suzanne only. declined NIPT & Carrier testing (3) Supervision of normal : Status: Acute Comment: , ANJEL 04/29, CHAVEZ Mathias, Itz (4) Depression: Status: Acute Qualifiers: Depression Type: unspecified Qualified Code(s): F32.A - Depression, unspecified (5) Anxiety: Status: Acute Comment: Zoloft. counseling recommended. Orders: Orders POC Urinalysis 2 Dip (Clinic) Today 11/05/24 0904 <Electronically signed by Rose St DO> Date _ Rose Mahmood DO Cosigner Signature: Date (if applicable) CC: ~ [facility] Work Phone: Progress note Author [facility] Note Date/Time December 01, 2024 10:[address] [facility] [address] [place] [address], [address] [place] [address] OFFICE VISIT Date of Service: 12/01/24 MR#: [id number] Acct: [id number] Name: MARTIN CASTELLANOS Rep #: [id number] : 1995 Provider: Dr. Vishnu Lee MD Age/Sex: 29/F Location: [facility] [place] Status: Signed Intake Vital Signs 09/29/24 10:27 11/05/24 08:44 12/01/24 10:16 Height 5 ft 4 in 5 ft 4 in 5 ft 4 in Weight: 181 lb 4 oz BMI 31.1 BP 137/73 H Intake Visit Reasons: 18 wk ob Automotive Vehicle Inspector Required: No Is patient in pain?: No Feel stressed/tense/nervous/anxious/difficulty sleeping: not at all Allergies Penicillins Allergy (Intermediate, Verified 12/01/24 10:17) Hives Medications ?Medication ?Instructions ?Recorded ?Confirmed ?Type multivitamin no.47-iron fum 27 1 cap PO Check with wang sheth 06/14/21 History mg-folate no.1 1 mg-dha 300 mg capsule (PNV-DHA) cholecalciferol (vitamin D3) 125 125 mcg PO QDAY 04/2812/01/24 History mcg (5,000 unit) capsule magnesium gluconate 30 mg tablet 30 mg PO QDAY 4 12/01/24 History sertraline 50 mg tablet (Zoloft) 50 mg PO DAILY #90 ta bs 04/28/24 12/01/24 Rx cetirizine 10 mg tablet (Zyrtec) 10 mg PO QDAY PRN 05/0512/01/24 History Last Menstrual Period: 07/23/24 Zika: Zika virus screening: Negative : No PFSH PFSH Medical History 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 Vaginal delivery COVID-19 vaccine series completed Surgical History H/O wisdom tooth extraction Family History Mother Hypertension Grandmother Breast cancer Paternal grt Grandmother Grandmother Hypertension Breast cancer, Onset Age: 60 Paternal Social History adopted: No household members: spouse housing: house number of children: 1 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al status: employed 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 pets and animals: Yes pets and animals: dog(s) history of recent travel: No sexually active: Yes Smoking Status: Never smoker second hand exposure: Yes alcohol intake: current alcohol intake frequency: holidays/special occasions only details: not while substance use type: does not use well-balanced diet: daily or most days caffeine: Yes Type: coffee Number of servings: 1 eating out: rarely or never during the past year weight has: remained stable what type of physical activity do you participate in: other details: Pelaton frequency: 3-4 times per week duration: 30-45 minutes/day juan alberto/lutheran: Druze seatbelt use: always do you feel safe at home: Yes additional social history: - Itz History 2 Elective abortions Hx Para 1 Spontaneous abortions Hx # Term Pregnancies Ectopic pregnancies Hx # Pregnancies Multiple births # of living children 1 Past Pregnancies Del. Date Name GA/Weeks Outcome Route Bth Weight Infant Gen Labor Lgth Anesthesia Del Locatn Provider FOB 02/05/22 Michael 41 live - full term 8#3oz Female epidu ral [facility] Dorothy Mobley Delivery Date: 02/05/22 Last Updated by: Ruthie Costello see problem list for complications, and 41 IOL postdates sm girl michael atony HPI 18 wk ob Details: MARTIN CASTELLANOS is a 29 year old who presents for routine OB visit. OB Visit ANJEL Calculator Estimated Delivery Date Method Current WG Current Estimate 04/29/25 LMP (Certain) 18w 5d Expected Delivery Route/Plan Labor Preferences- CB/BF classes: [] labor support person: [] labor intervention preferences: [] pain management options preferred: [] cut cord/dad catch: [] : [] PP control planned: [] discussed possible routes of delivery and associated risks: [] special requests: [] Specific Issue/Plans Covid status: [] Flu vaccine: [] Tdap vaccine: [] Rhogam: [] LARC form signed: [] Problem list reviewed and updated with the most current plan of care details and appropriate orders placed. Relevant counseling for the gestational age provided. Continue routine care and follow up unless otherwise noted in visit notes/problem list details Initial Weight: Not Recorded Date -?-?-?-?-?-?-?-?-?-?-?-?- EGA Weight BP Urine Prot -?-?-?-?-?-?--?-?-?-?-?-?- Glucose FHR FuHt Pres Dilation -?-?-?-?-?-?-?-?-?-?-?-?- Effaced St Visit Note 09/29/24 -?-?-?-?-?-?-?-?-?-?-?-?- 9w 5d 171 lb 4 oz 129/78 -?-?-?-?-?-?-?-?-?-?-?-?- 165 -?-?-?-?-?-?-?-?-?-?-?-?- SM- CRL 3.2 cm c ons with LMP 11/05/24 -?-?-?-?-?-?-?-?-?-?-?-?- 15w 0d 179 lb 2 oz 125/85 Nega tive -?-?-?-?-?-?-?-?-?-?-?-?- Negative 160 -?-?-?-?-?-?-?-?-?-?-?-?- JV- no complaint s today. anatomy scan ordered. bedside scan looks great with movement. patient reassured. 12/01/24 -?-?-?-?-?-?-?-?-?-?-?-?- 18w 5d 181 lb 4 oz 137/73 Nega tive -?-?-?-?-?-?-?-?-?-?-?-?- Negative 150 -?-?-?-?-?-?-?-?-?-?-?-?- Sm- no vb crampi ng anzered quesitons about hemorrhage pp anatomy scan today ACOG First Trimester First Trimester: Desire for , Alcohol, Tobacco Cessation, Illicit/Recreational Drug/Substance Use, Intimate Partner Violence, Barriers to care, Unstable Housing, Communication Barriers, Environmental/Work Hazards, Anticipated Course of Care, Toxoplasmosis Precations, Use of Any medications, Sexual activity, Exercise, Dental Care, Sauna/Hot tub use, Seat Belt use, Childbirth classes/Hospital facilities, Travel, Indications for Ultrasound and Screening for Aneuploidy; Discussed Results POC Urinalysis 2 Dip (Clinic) Office Urine Glucose Negative Last Edit by Suznane Garcia on 12/01/24 10:30 Office Urine Protein Negative Last Edit by Suzanne Garcia on 12/01/24 10:30 Coding Level of Care Code OB Routine Diagnoses History of atony of uterus Z87.59 18 weeks gestation of Z3A.18 Weeks of gestation: 18 weeks Supervision of normal Z34.90 Depression, unspecified depression type F32.A Depression Type: unspecified Anxiety F41.9 Assessment and Plan Assessment and Plan (1) History of atony of uterus: Status: Acute (2) : Status: Acute Qualifiers: Weeks of gestation: 18 weeks Qualified Code(s): Z3A.18 - 18 weeks gestation of Comment: Requests docs or Suzanne only. declined NIPT & Carrier testing (3) Supervision of normal : Status: Acute Comment: PRR , ANJEL 04/29, PC Michael, Itz (4) Depression: Status: Acute Qualifiers: Depression Type: unspecified Qualified Code(s): F32.A - Depression, unspecified (5) Anxiety: Status: Acute Comment: Zoloft. counseling recommended. Orders: Orders POC Urinalysis 2 Dip (Clinic) Today 12/01/24 1055 <Electronically signed by Dorothy gusman MD> Date _ Dorothy Lee MD Cosigner Signature: Date (if applicable) CC: ~ [facility] Work Phone: Progress note Author Dorothy Lee [facility] Services Note Date/Time January 26, 2025 10 :02am [facility] [address], [address] [place] [address] OFFICE VISIT Date of Service: 01/26/25 MR#: [id number] Acct: [id number] Name: MARTIN CASTELLANOS Rep #: [id number] : 1995 Provider: Dr. Vishnu Lee MD Age/Sex: 29/F Location: [facility] [place] Status: Signed Intake Vital Signs 12/01/24 10:16 12/31/24 08:38 01/26/25 09:18 Height 5 ft 4 in 5 ft 4 in 5 ft 4 in Weight: 197 lb 2 oz BMI 33.8 BP 131/76 H Intake Visit Reasons: 26 wk ob/glucose Automotive Vehicle Inspector Required: No Is patient in pain?: No Allergies Penicillins Allergy (Intermediate, Verified 01/26/25 09:13) Hives Medications ?Medication ?Instructions ?Recorded ?Confirmed ?Type multivitamin no.47-iron fum 27 1 cap PO Check with wang sheth 06/14/21 01/26/25 History mg-folate no.1 1 mg-dha 300 mg capsule (PNV-DHA) cholecalciferol (vitamin D3) 125 125 mcg PO QDAY 04/2801/26/25 History mcg (5,000 unit) capsule magnesium gluconate 30 mg tablet 30 mg PO QDAY 4 01/26/25 History sertraline 50 mg tablet (Zoloft) 50 mg PO DAILY #90 ta bs 04/28/24 01/26/25 Rx cetirizine 10 mg tablet (Zyrtec) 10 mg PO QDAY PRN 05/0501/26/25 History Last Menstrual Period: 07/23/24 Zika: Zika virus screening: Negative : No PFSH PFSH Medical History 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 Vaginal delivery COVID-19 vaccine series completed Surgical History H/O wisdom tooth extraction Family History Mother Hypertension Grandmother Breast cancer Paternal grt Grandmother Grandmother Hypertension Breast cancer, Onset Age: 60 Paternal Social History adopted: No household members: spouse housing: house number of children: 1 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al status: employed 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 pets and animals: Yes pets and animals: dog(s) history of recent travel: No sexually active: Yes Smoking Status: Never smoker second hand exposure: Yes alcohol intake: current alcohol intake frequency: holidays/special occasions only details: not while substance use type: does not use well-balanced diet: daily or most days caffeine: Yes Type: coffee Number of servings: 1 eating out: rarely or never during the past year weight has: remained stable what type of physical activity do you participate in: other details: Pelaton frequency: 3-4 times per week duration: 30-45 minutes/day juan alberto/lutheran: Druze seatbelt use: always do you feel safe at home: Yes additional social history: - Itz History 2 Elective abortions Hx Para 1 Spontaneous abortions Hx # Term Pregnancies Ectopic pregnancies Hx # Pregnancies Multiple births # of living children 1 Past Pregnancies Del. Date Name GA/Weeks Outcome Route Bth Weight Infant Gen Labor Lgth Anes t hesia Del Locatn Provider FOB 02/05/22 Michael 41 live - full term 8#3oz Female epidu ral [facility] Dorothy Mobley Delivery Date: 02/05/22 Last Updated by: Ruthie Costello see problem list for complications, and 41 IOL postdates sm girl michael atony HPI 26 wk ob/glucose Details: MARTIN CASTELLANOS is a 29 year old who presents for routine OB visit. OB Visit ANJEL Calculator Estimated Delivery Date Method Current WG Current Estimate 04/29/25 LMP (Certain) 26w 5d Expected Delivery Route/Plan Labor Preferences- CB/BF classes: [] labor support person: [] labor intervention preferences: [] pain management options preferred: [] cut cord/dad catch: [] : [] PP control planned: [] discussed possible routes of delivery and associated risks: [] special requests: [] Specific Issue/Plans Covid status: [] Flu vaccine: [] Tdap vaccine: [] Rhogam: [] LARC form signed: [] Problem list reviewed and updated with the most current plan of care details and appropriate orders placed. Relevant counseling for the gestational age provided. Continue routine care and follow up unless otherwise noted in visit notes/problem list details Initial Weight: Not Recorded Date -?-?-?-?-?-?-?-?-?-?-?-?- EGA Weight BP Urine Prot -?-?-?-?-?-?-?-?-?-?-?-?- Glucose FHR FuHt Pres Dilation -?-?-?-?-?-?-?-?-?-?-?-?- Effaced St Visit Note 09/29/24 -?-?-?-?-?-?-?-?-?-?-?-?- 9w 5d 171 lb 4 oz 129/78 -?-?-?-?-?-?-?-?-?-?-?-?- 165 -?-?-?-?--?-?-?-?-?-?-?-?- SM- CRL 3.2 cm c ons with LMP 11/05/24 -?-?-?-?-?-?-?-?-?-?-?-?- 15w 0d 179 lb 2 oz 125/85 Nega tive -?-?-?-?-?-?-?-?-?-?-?-?- Negative 160 -?-?-?-?-?-?-?-?-?-?-?-?- JV- no complaint s today. anatomy scan ordered. bedside scan looks great with movement. patient reassured. 12/01/24 -?-?-?-?-?-?-?-?-?-?-?-?- 18w 5d 181 lb 4 oz 137/73 Nega tive -?-?-?-?-?-?-?-?-?-?-?-?- Negative 150 -?-?-?-?-?-?-?-?-?-?-?-?- Sm- no vb crampi ng anzered quesitons about hemorrhage pp anatomy scan today 12/31/24 -?-?-?-?-?-?-?-?-?-?-?-?- 23w 0d 192 lb 8 oz 108/74 Nega tive -?-?-?-?-?-?-?-?-?-?-?-?- Negative 168 -?-?-?-?-?-?-?-?-?-?-?-?- JV- no lof, vagi nal bleeding, or dec fm. follow up us was normal. has restless legs. iron and magnesium not helping. 01/26/25 -?-?-?-?-?-?-?-?-?-?-?-?- 26w 5d 197 lb 2 oz 131/76 Nega tive -?-?-?-?-?-?-?-?-?-?-?-?- Negative 150 -?-?-?-?-?-?-?-?-?-?-?-?- SM- no vb lof go od fm no regular ctx. ACOG First Trimester First Trimester: Desire for , Alcohol, Tobacco Cessation, Illicit/Recreational Drug/Substance Use, Intimate Partner Violence, Barriers to care, Unstable Housing, Communication Barriers, Environmental/Work Hazards, Anticipated Course of Care, Toxoplasmosis Precations, Use of Any medications, Sexual activity, Exercise, Dental Care, Sauna/Hot tub use, Seat Belt use, Childbirth classes/Hospital facilities, Travel, Indications for Ultrasound and Screening for Aneuploidy; Discussed Results POC Urinalysis 2 Dip (Clinic) Office Urine Glucose Negative Last Edit by Suzanne Garcia on 01/26/25 09:23 Office Urine Protein Negative Last Edit by Suzanne Garcia on 01/26/25 09:23 Coding Level of Care Code OB Routine Diagnoses Family history of transposition of great vessels Z82.79 History of atony of uterus Z87.59 26 weeks gestation of Z3A.26 Weeks of gestation: 26 weeks Supervision of normal Z34.90 Depression, unspecified depression type F32.A Depression Type: unspecified Anxiety F41.9 Assessment and Plan Assessment and Plan (1) Family history of transposition of great vessels: Status: Acute Comment: echo declined (2) History of atony of uterus: Status: Acute (3) : Status: Acute Qualifiers: Weeks of gestation: 26 weeks Qualified Code(s): Z3A.26 - 26 weeks gestation of Comment: Requests docs or Suzanne only. declined NIPT & Carrier testing (4) Supervision of normal : Status: Acute Comment: PRR , ANJEL 04/29, girl Alicia Mathias, Itz (5) Depression: Status: Acute Qualifiers: Depression Type: unspecified Qualified Code(s): F32.A - Depression, unspecified (6) Anxiety: Status: Acute Comment: Zoloft. counseling recommended. Orders: Orders POC Urinalysis 2 Dip (Clinic) Today 01/26/25 1002 <Electronically signed by Dorothy gusman MD> Date _ Dorothy Lee MD Cosigner Signature: Date (if applicable) CC: ~ [facility] Work Phone: Progress note Author [facility] Note Date/Time February 11, 2025 10:14am [facility] [address], [address] [place] [address] OFFICE VISIT Date of Service: 02/11/25 MR#: [id number] Acct: [id number] Name: MARTIN CASTELLANOS Rep #: [id number] : 1995 Provider: Dr. Marina Mahmood, Age/Sex: 29/F Location: [facility] [place] Status: Signed Intake Vital Signs 12/01/24 10:16 01/26/25 09:18 02/11/25 09:39 02/11/25 09:41 Height 5 ft 4 in 5 ft 4 in 5 ft 4 in 5 ft 4 in Weight: 200 lb 2 oz BMI 34.3 BP 127/80 H Intake Visit Reasons: 28 wk ob Automotive Vehicle Inspector Required: No Is patient in pain?: No Allergies Penicillins Allergy (Intermediate, Verified 02/11/25 09:39) Hives Medications ?Medication ?Instructions ?Recorded ?Confirmed ?Type multivitamin no.47-iron fum 27 1 cap PO Check with wang elder doctor 06/14/21 02/11/25 History mg-folate no.1 1 mg-dha 300 mg capsule (PNV-DHA) cholecalciferol (vitamin D3) 125 125 mcg PO QDAY 04/2802/11/25 History mcg (5,000 unit) capsule magnesium gluconate 30 mg tablet 30 mg PO QDAY 4 02/11/25 History sertraline 50 mg tablet (Zoloft) 50 mg PO DAILY #90 ta bs 04/28/24 02/11/25 Rx cetirizine 10 mg tablet (Zyrtec) 10 mg PO QDAY PRN 05/0502/11/25 History Last Menstrual Period: 07/23/24 Zika: Zika virus screening: Negative : No PFSH PFSH Medical History 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 Vaginal delivery COVID-19 vaccine series completed Surgical History H/O wisdom tooth extraction Family History Mother Hypertension Grandmother Breast cancer Paternal grt Grandmother Grandmother Hypertension Breast cancer, Onset Age: 60 Paternal Social History adopted: No household members: spouse housing: house number of children: 1 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al status: employed 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 pets and animals: Yes pets and animals: dog(s) history of recent travel: No sexually active: Yes Smoking Status: Never smoker second hand exposure: Yes alcohol intake: current alcohol intake frequency: holidays/special occasions only details: not while substance use type: does not use well-balanced diet: daily or most days caffeine: Yes Type: coffee Number of servings: 1 eating out: rarely or never during the past year weight has: remained stable what type of physical activity do you participate in: other details: Pelaton frequency: 3-4 times per week duration: 30-45 minutes/day juan alberto/lutheran: Druze seatbelt use: always do you feel safe at home: Yes additional social history: - Itz History 2 Elective abortions Hx Para 1 Spontaneous abortions Hx # Term Pregnancies Ectopic pregnancies Hx # Pregnancies Multiple births # of living children 1 Past Pregnancies Del. Date Name GA/Weeks Outcome Route Bth Weight Infant Gen Labor Lgth Anesthesia Del Locatn Provider FOB 02/05/22 Michael 41 live - full term 8#3oz Female epidu ral [facility] Dorothy Mobley Delivery Date: 02/05/22 Last Updated by: Ruthie Costello see problem list for complications, and 41 IOL postdates sm girl michael atony HPI 28 wk ob Details: MARTIN CASTELLANOS is a 29 year old who presents for routine OB visit. OB Visit ANJEL Calculator Estimated Delivery Date Method Current WG Current Estimate 04/29/25 LMP (Certain) 29w 0d Expected Delivery Route/Plan Labor Preferences- CB/BF classes: [] labor support person: [] labor intervention preferences: [] pain management options preferred: [] cut cord/dad catch: [] : [] PP control planned: [] discussed possible routes of delivery and associated risks: [] special requests: [] Specific Issue/Plans Covid status: [] Flu vaccine: [] Tdap vaccine: [] Rhogam: [] LARC form signed: [] Problem list reviewed and updated with the most current plan of care details and appropriate orders placed. Relevant counseling for the gestational age provided. Continue routine care and follow up unless otherwise noted in visit notes/problem list details Initial Weight: Not Recorded Date -?-?-?-?-?-?-?--?-?-?-?-?- EGA Weight BP Urine Prot -?-?-?-?-?-?-?-?-?-?-?-?- Glucose FHR FuHt Pres Dilation -?-?-?-?-?-?-?-?-?-?-?-?- Effaced St Visit Note 09/29/24 -?-?-?-?-?-?-?-?-?-?-?-?- 9w 5d 171 lb 4 oz 129/78 -?-?-?-?-?-?-?-?-?-?-?-?- 165 -?-?-?-?-?-?-?-?-?-?-?-?- SM- CRL 3.2 cm c ons with LMP 11/05/24 -?-?-?-?-?-?-?-?-?-?-?-?- 15w 0d 179 lb 2 oz 125/85 Nega tive -?-?-?-?-?-?-?-?-?-?-?-?- Negative 160 -?-?-?-?-?-?-?-?-?-?-?-?- JV- no complaint s today. anatomy scan ordered. bedside scan looks great with movement. patient reassured. 12/01/24 -?-?-?-?-?-?-?-?-?-?-?-?- 18w 5d 181 lb 4 oz 137/73 Nega tive -?-?-?-?-?-?-?-?-?-?-?-?- Negative 150 -?-?-?-?--?-?-?-?-?-?-?-?- Sm- no vb crampi ng anzered quesitons about hemorrhage pp anatomy scan today 12/31/24 -?-?-?-?-?-?-?-?-?-?-?-?- 23w 0d 192 lb 8 oz 108/74 Nega tive -?-?-?-?-?-?-?-?-?-?-?-?- Negative 168 -?-?-?-?-?-?-?-?-?-?-?-?- JV- no lof, vagi nal bleeding, or dec fm. follow up us was normal. has restless legs. iron and magnesium not helping. 01/26/25 -?-?-?-?-?-?-?-?-?-?-?-?- 26w 5d 197 lb 2 oz 131/76 Nega tive -?-?-?-?-?-?-?-?-?-?-?-?- Negative 150 -?-?-?-?-?-?-?-?-?-?-?-?- SM- no vb lof go od fm no regular ctx. 02/11/25 -?-?-?-?-?-?-?-?-?-?-?-?- 29w 0d 200 lb 2 oz 127/80 Nega tive -?-?-?-?-?-?-?--?-?-?-?-?- Negative 125 33 -?-?-?-?-?-?-?-?-?-?-?-?- JV- no lof, vagi nal bleeding, or dec fm. ACOG First Trimester First Trimester: Desire for , Alcohol, Tobacco Cessation, Illicit/Recreational Drug/Substance Use, Intimate Partner Violence, Barriers to care, Unstable Housing, Communication Barriers, Environmental/Work Hazards, Anticipated Course of Care, Toxoplasmosis Precations, Use of Any medications, Sexual activity, Exercise, Dental Care, Sauna/Hot tub use, Seat Belt use, Childbirth classes/Hospital facilities, Travel, Indications for Ultrasound and Screening for Aneuploidy; Discussed Results POC Urinalysis 2 Dip (Clinic) Office Urine Glucose Negative Last Edit by Angelina Blanco on 02/11/25 10: 07 Office Urine Protein Negative Last Edit by Angelina Blanco on 02/11/25 10: 07 Immunizations Adacel(Tdap Adolesn/Adult)(PF) 2 Lf-(2.5-5-3-5)-5 Lf/0.5 mL IM syringe Performing Provider: Rose Mahmood DO Performing Location: [facility] Administered by: Angelina Blanco on 02/11/25 09:56 Dose Route Admin Location Dispensed Lot Number Expiration Date NDC [employer] R[employer] Agent 0.5 mL IM Right Deltoid 0.5 mL [id number] 02/08/27 29326-546-62 [employer]SE [employer] VIS Given Date VIS Provided VIS Publication Date 02/11/25 Single Vaccine 24 Eligibility Eligibility Date Funding Source Not Applicable Coding Level of Care Code OB Routine Diagnoses Family history of transposition of great vessels Z82.79 History of atony of uterus Z87.59 Depression, unspecified depression type F32.A Depression Type: unspecified Anxiety F41.9 Supervision of normal Z34.90 29 weeks gestation of Z3A.29 Weeks of gestation: 29 weeks Assessment and Plan Assessment and Plan (1) Family history of transposition of great vessels: Status: Acute Comment: echo declined (2) History of atony of uterus: Status: Acute (3) Depression: Status: Acute Qualifiers: Depression Type: unspecified Qualified Code(s): F32.A - Depression, unspecified (4) Anxiety: Status: Acute Comment: Zoloft. counseling recommended. (5) Supervision of normal : Status: Acute Comment: PRR , ANJEL 04/29, girl Alicia CHAVEZ Mathias, Itz (6) : Status: Acute Qualifiers: Weeks of gestation: 29 weeks Qualified Code(s): Z3A.29 - 29 weeks gestation of Comment: Requests docs or Suzanne only. declined NIPT & Carrier testing Orders: Orders POC Urinalysis 2 Dip (Clinic) Today Tdap Immunization Today Z23 - Encounter for immunization 02/11/25 1014 <Electronically signed by Rose Vand e Velde DO> Date _ Rose Penn Donovan DO Bhupinderignjoe Signature: Date (if applicable) CC: ~ [facility] Work Phone: Progress note Author [facility] Services Note Date/Time February 25, 2025 10:19am [facility] [address], [address] [place] [address] OFFICE VISIT Date of Service: 02/25/25 MR#: [id number] Acct: [id number] Name: MARTIN CASTELLANOS Rep #: [id number] : 1995 Provider: Dr. Vishnu Lee MD Age/Sex: 29/F Location: [facility] [place] Status: Signed Intake Vital Signs 12/31/24 08:38 02/11/25 09:41 02/25/25 09:45 Height 5 ft 4 in 5 ft 4 in 5 ft 4 in Weight: 201 lb 4 oz BMI 34.5 BP 131/82 H Intake Visit Reasons: 30 WK OB Automotive Vehicle Inspector Required: No Is patient in pain?: No Allergies Penicillins Allergy (Intermediate, Verified 02/25/25 09:46) Hives Medications ?Medication ?Instructions ?Recorded ?Confirmed ?Type multivitamin no.47-iron fum 27 1 cap PO Check with wang elder doctor 06/14/21 02/25/25 History mg-folate no.1 1 mg-dha 300 mg capsule (PNV-DHA) cholecalciferol (vitamin D3) 125 125 mcg PO QDAY 04/2802/25/25 History mcg (5,000 unit) capsule magnesium gluconate 30 mg tablet 30 mg PO QDAY 4 02/25/25 History sertraline 50 mg tablet (Zoloft) 50 mg PO DAILY #90 ta bs 04/28/24 02/25/25 Rx cetirizine 10 mg tablet (Zyrtec) 10 mg PO QDAY PRN 05/0502/25/25 History Last Menstrual Period: 07/23/24 Zika: Zika virus screening: Negative : No PFSH PFSH Medical History 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 Vaginal delivery COVID-19 vaccine series completed Surgical History H/O wisdom tooth extraction Family History Mother Hypertension Grandmother Breast cancer Paternal grt Grandmother Grandmother Hypertension Breast cancer, Onset Age: 60 Paternal Social History adopted: No household members: spouse housing: house number of children: 1 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al status: employed 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 pets and animals: Yes pets and animals: dog(s) history of recent travel: No sexually active: Yes Smoking Status: Never smoker second hand exposure: Yes alcohol intake: current alcohol intake frequency: holidays/special occasions only details: not while substance use type: does not use well-balanced diet: daily or most days caffeine: Yes Type: coffee Number of servings: 1 eating out: rarely or never during the past year weight has: remained stable what type of physical activity do you participate in: other details: Pelaton frequency: 3-4 times per week duration: 30-45 minutes/day juan alberto/lutheran: Druze seatbelt use: always do you feel safe at home: Yes additional social history: - Itz History 2 Elective abortions Hx Para 1 Spontaneous abortions Hx # Term Pregnancies Ectopic pregnancies Hx # Pregnancies Multiple births # of living children 1 Past Pregnancies Del. Date Name GA/Weeks Outcome Route Bth Weight Infant Gen Labor Lgth Anesthesia Del Locatn Provider FOB 02/05/22 Michael 41 live - full term 8#3oz Female epidu ral [facility] Dorothy Mobley Delivery Date: 02/05/22 Last Updated by: Ruthie Costello see problem list for complications, and 41 IOL postdates sm girl michael atony HPI 30 WK OB Details: MARTIN CASTELLANOS is a 29 year old who presents for routine OB visit. OB Visit ANJEL Calculator Estimated Delivery Date Method Current WG Current Estimate 04/29/25 LMP (Certain) 31w 0d Expected Delivery Route/Plan Labor Preferences- CB/BF classes: [] labor support person: [] labor intervention preferences: [] pain management options preferred: [] cut cord/dad catch: [] : [] PP control planned: [] discussed possible routes of delivery and associated risks: [] special requests: [] Specific Issue/Plans Covid status: [] Flu vaccine: [] Tdap vaccine: given Rhogam: [] LARC form signed: declined movement and labor precautions reviewed. Problem list reviewed and updated with the most current plan of care details and appropriate orders placed. Relevant counseling for the gestational age provided. Continue routine care and follow up unless otherwise noted in visit notes/problem list details Initial Weight: Not Recorded Date -?-?-?-?--?-?-?-?-?-?-?-?- EGA Weight BP Urine Prot -?-?-?-?-?-?-?-?-?-?-?-?- Glucose FHR FuHt Pres Dilation -?-?-?-?-?-?-?-?-?-?-?-?- Effaced St Visit Note 09/29/24 -?-?-?-?-?-?-?-?-?-?-?-?- 9w 5d 171 lb 4 oz 129/78 -?-?-?-?-?-?-?-?-?-?-?-?- 165 -?-?-?-?-?-?-?-?-?-?-?-?- SM- CRL 3.2 cm c ons with LMP 11/05/24 -?-?-?-?-?-?-?-?-?-?-?-?- 15w 0d 179 lb 2 oz 125/85 Nega tive -?-?-?-?-?-?-?-?-?-?-?-?- Negative 160 -?-?-?-?-?-?-?-?-?-?-?-?- JV- no complaint s today. anatomy scan ordered. bedside scan looks great with movement. patient reassured. 12/01/24 -?-?-?-?-?-?-?-?-?-?-?-?- 18w 5d 181 lb 4 oz 137/73 Nega tive -?-?-?-?-?-?-?-?-?-?-?-?- Negative 150 -?--?-?-?-?-?-?-?-?-?-?-?- Sm- no vb crampi ng anzered quesitons about hemorrhage pp anatomy scan today 12/31/24 -?-?-?-?-?-?-?-?-?-?-?-?- 23w 0d 192 lb 8 oz 108/74 Nega tive -?-?-?-?-?-?-?-?-?-?-?-?- Negative 168 -?-?-?-?-?-?-?-?-?-?-?-?- JV- no lof, vagi nal bleeding, or dec fm. follow up us was normal. has restless legs. iron and magnesium not helping. 01/26/25 -?-?-?-?-?-?-?-?-?-?-?-?- 26w 5d 197 lb 2 oz 131/76 Nega tive -?-?-?-?-?-?-?-?-?-?-?-?- Negative 150 -?-?-?-?-?-?-?-?-?-?-?-?- SM- no vb lof go od fm no regular ctx. 02/11/25 -?-?-?-?-?-?-?-?-?-?-?-?- 29w 0d 200 lb 2 oz 127/80 Nega tive -?-?-?-?--?-?-?-?-?-?-?-?- Negative 125 33 -?-?-?-?-?-?-?-?-?-?-?-?- JV- no lof, vagi nal bleeding, or dec fm. 02/25/25 -?-?-?-?-?-?-?-?-?-?-?-?- 31w 0d 201 lb 4 oz 131/82 Nega tive -?-?-?-?-?-?-?-?-?-?-?-?- Negative 135 31 -?-?-?-?-?-?-?-?-?-?-?-?- SM- no vb lof go od fm no reguar ctx ACOG First Trimester First Trimester: Desire for , Alcohol, Tobacco Cessation, Illicit/Recreational Drug/Substance Use, Intimate Partner Violence, Barriers to care, Unstable Housing, Communication Barriers, Environmental/Work Hazards, Anticipated Course of Care, Toxoplasmosis Precations, Use of Any medications, Sexual activity, Exercise, Dental Care, Sauna/Hot tub use, Seat Belt use, Childbirth classes/Hospital facilities, Travel, Indications for Ultrasound and Screening for Aneuploidy; Discussed Results POC Urinalysis 2 Dip (Clinic) Office Urine Glucose Negative Last Edit by Suzanne Garcia on 02/25/25 09:50 Office Urine Protein Negative Last Edit by Suzanne Garcia on 02/25/25 09:50 Coding Level of Care Code OB Routine Diagnoses Family history of transposition of great vessels Z82.79 History of atony of uterus Z87.59 31 weeks gestation of Z3A.31 Weeks of gestation: 31 weeks Supervision of normal Z34.90 Depression, unspecified depression type F32.A Depression Type: unspecified Anxiety F41.9 Assessment and Plan Assessment and Plan (1) Family history of transposition of great vessels: Status: Acute Comment: echo declined (2) History of atony of uterus: Status: Acute (3) : Status: Acute Qualifiers: Weeks of gestation: 31 weeks Qualified Code(s): Z3A.31 - 31 weeks gestation of Comment: Requests docs or Suzanne only. declined NIPT & Carrier testing (4) Supervision of normal : Status: Acute Comment: PRR , ANJEL 04/29, girl Alicia Mathias, Itz (5) Depression: Status: Acute Qualifiers: Depression Type: unspecified Qualified Code(s): F32.A - Depression, unspecified (6) Anxiety: Status: Acute Comment: Zoloft. counseling recommended. Orders: Orders POC Urinalysis 2 Dip (Clinic) Today 02/25/25 1019 <Electronically signed by Dorothy gusman MD> Date _ Dorothy Lee MD Cosigner Signature: Date (if applicable) CC: ~ [facility] Work Phone: Progress note Author Rose Man [facility] Note Date/Time March 09, 2025 10:07am [facility] [address], [address] [place] [address] OFFICE VISIT Date of Service: 03/09/25 MR#: [id number] Acct: [id number] Name: MARTIN CASTELLANOS Rep #: [id number] : 1995 Provider: Dr. Marina Mahmood DO Age/Sex: 29/F Location: [facility] [place] Status: Signed Intake Vital Signs 12/31/24 08:38 02/25/25 09:45 03/09/25 09:27 Height 5 ft 4 in 5 ft 4 in 5 ft 4 in Weight: 203 lb 6 oz BMI 34.9 BP 119/79 Intake Visit Reasons: 32 WK OB Chief Complaint: 32wk OB Automotive Vehicle Inspector Required: No Is patient in pain?: No Allergies Penicillins Allergy (Intermediate, Verified 03/09/25 09:25) Hives Medications ?Medication ?Instructions ?Recorded ?Confirmed ?Type multivitamin no.47-iron fum 27 1 cap PO Check with wang elder doctor 06/14/21 03/09/25 History mg-folate no.1 1 mg-dha 300 mg capsule (PNV-DHA) cholecalciferol (vitamin D3) 125 125 mcg PO QDAY 04/2803/09/25 History mcg (5,000 unit) capsule magnesium gluconate 30 mg tablet 30 mg PO QDAY 4 03/09/25 History sertraline 50 mg tablet (Zoloft) 50 mg PO DAILY #90 ta bs 04/28/24 03/09/25 Rx cetirizine 10 mg tablet (Zyrtec) 10 mg PO QDAY PRN 05/0503/09/25 History Last Menstrual Period: 07/23/24 : No Have you fallen in the past year?: No PFSH PFSH Medical History 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 Vaginal delivery COVID-19 vaccine series completed Surgical History H/O wisdom tooth extraction Family History Mother Hypertension Grandmother Breast cancer Paternal grt Grandmother Grandmother Hypertension Breast cancer, Onset Age: 60 Paternal Social History adopted: No household members: spouse housing: house number of children: 1 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al status: employed 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 pets and animals: Yes pets and animals: dog(s) history of recent travel: No sexually active: Yes Smoking Status: Never smoker second hand exposure: Yes alcohol intake: current alcohol intake frequency: holidays/special occasions only details: not while substance use type: does not use well-balanced diet: daily or most days caffeine: Yes Type: coffee Number of servings: 1 eating out: rarely or never during the past year weight has: remained stable what type of physical activity do you participate in: other details: Pelaton frequency: 3-4 times per week duration: 30-45 minutes/day juan alberto/lutheran: Druze seatbelt use: always do you feel safe at home: Yes additional social history: - Itz History 2 Elective abortions Hx Para 1 Spontaneous abortions Hx # Term Pregnancies Ectopic pregnancies Hx # Pregnancies Multiple births # of living children 1 Past Pregnancies Del. Date Name GA/Weeks Outcome Route Bth Weight Gen Labor Lgth Anesthesia Del Locatn Provider FOB 02/05/22 Michael 41 live - full term 8#3oz Female epidu ral [facility] Dorothy Jesus [facility] Delivery Date: 02/05/22 Last Updated by: Ruthie M Ketler see problem list for complications, and 41 IOL postdates sm girl michael thomas HPI 32 WK OB Details: MARTIN CASTELLANOS is a 29 year old who presents for routine OB visit. OB Visit ANJEL Calculator Estimated Delivery Date Method Current WG Current Estimate 04/29/25 LMP (Certain) 32w 5d Expected Delivery Route/Plan Labor Preferences- CB/BF classes: [] labor support person: [] labor intervention preferences: [] pain management options preferred: [] cut cord/dad catch: [] : [] PP control planned: [] discussed possible routes of delivery and associated risks: [] special requests: [] Specific Issue/Plans Covid status: [] Flu vaccine: [] Tdap vaccine: given Rhogam: [] LARC form signed: declined movement and labor precautions reviewed. Problem list reviewed and updated with the most current plan of care details and appropriate orders placed. Relevant counseling for the gestational age provided. Continue routine care and follow up unless otherwise noted in visit notes/problem list details Initial Weight: Not Recorded Date -?-?-?-?-?-?-?-?-?-?-?-?- EGA Weight BP Urine Prot -?-?-?-?--?-?-?-?-?-?-?-?- Glucose FHR FuHt Pres Dilation -?-?-?-?-?-?-?-?-?-?--?-?- Effaced St Visit Note 09/29/24 -?-?-?-?-?-?-?-?-?-?-?-?- 9w 5d 171 lb 4 oz 129/78 -?-?-?-?-?-?-?-?-?-?-?-?- 165 -?-?-?-?-?-?-?-?-?-?-?-?- SM- CRL 3.2 cm c ons with LMP 11/05/24 -?-?-?-?-?-?-?-?-?-?-?-?- 15w 0d 179 lb 2 oz 125/85 Nega tive -?-?-?-?-?-?-?-?-?-?-?-?- Negative 160 -?-?-?-?-?-?-?-?-?-?-?-?- JV- no complaint s today. anatomy scan ordered. bedside scan looks great with movement. patient reassured. 12/01/24 -?-?-?-?-?-?-?-?-?-?-?-?- 18w 5d 181 lb 4 oz 137/73 Nega tive -?-?-?-?-?-?-?-?-?-?-?-?- Negative 150 -?-?-?-?-?-?-?-?-?-?-?-?- Sm- no vb crampi ng anzered quesitons about hemorrhage pp anatomy scan today 12/31/24 -?-?-?-?-?-?-?-?-?-?-?-?- 23w 0d 192 lb 8 oz 108/74 Nega tive -?-?-?-?-?-?-?-?-?-?-?-?- Negative 168 -?-?-?-?-?-?-?-?-?-?-?-?- JV- no lof, vagi nal bleeding, or dec fm. follow up us was normal. has restless legs. iron and magnesium not helping. 01/26/25 -?-?-?-?-?-?-?-?-?-?-?-?- 26w 5d 197 lb 2 oz 131/76 Nega tive -?-?-?-?-?-?-?-?-?-?-?-?- Negative 150 -?-?-?-?-?-?-?-?-?-?-?-?- SM- no vb lof go od fm no regular ctx. 02/11/25 -?-?-?-?-?-?-?-?-?-?-?-?- 29w 0d 200 lb 2 oz 127/80 Nega tive -?-?-?-?-?-?-?-?-?-?-?-?- Negative 125 33 -?-?-?-?-?-?-?-?-?-?-?-?- JV- no lof, vagi nal bleeding, or dec fm. 02/25/25 -?-?-?-?-?-?-?-?-?-?-?-?- 31w 0d 201 lb 4 oz 131/82 Nega tive -?-?-?-?-?-?-?-?-?-?-?-?- Negative 135 31 -?-?-?-?-?-?-?-?-?-?-?-?- SM- no vb lof go od fm no reguar ctx 03/09/25 -?-?-?-?-?-?-?-?-?-?-?-?- 32w 5d 203 lb 6 oz 119/79 Nega tive -?-?-?-?-?-?-?-?-?-?-?-?- Negative 155 33 -?-?-?-?-?-?-?-?-?-?-?-?- JV- no lof, vagi nal bleeding, or dec fm. no complaints ACOG First Trimester First Trimester: Desire for , Alcohol, Tobacco Cessation, Illicit/Recreational Drug/Substance Use, Intimate Partner Violence, Barriers to care, Unstable Housing, Communication Barriers, Environmental/Work Hazards, Anticipated Course of Care, Toxoplasmosis Precations, Use of Any medications, Sexual activity, Exercise, Dental Care, Sauna/Hot tub use, Seat Belt use, Childbirth classes/Hospital facilities, Travel, Indications for Ultrasound and Screening for Aneuploidy; Discussed Results POC Urinalysis 2 Dip (Clinic) Office Urine Glucose Negative Last Edit by Yun Webb on 03/09/25 09:37 Office Urine Protein Negative Last Edit by Yun Webb on 03/09/25 09:37 Coding Level of Care Code OB Routine Diagnoses Family history of transposition of great vessels Z82.79 History of atony of uterus Z87.59 32 weeks gestation of Z3A.32 Weeks of gestation: 32 weeks Supervision of normal Z34.90 Depression, unspecified depression type F32.A Depression Type: unspecified Anxiety F41.9 Assessment and Plan Assessment and Plan (1) Family history of transposition of great vessels: Status: Acute Comment: echo declined (2) History of atony of uterus: Status: Acute (3) : Status: Acute Qualifiers: Weeks of gestation: 32 weeks Qualified Code(s): Z3A.32 - 32 weeks gestation of Comment: Requests docs or Suzanne only. declined NIPT & Carrier testing (4) Supervision of normal : Status: Acute Comment: PRR , ANJEL 04/29, girl Alicia Mathias, Itz (5) Depression: Status: Acute Qualifiers: Depression Type: unspecified Qualified Code(s): F32.A - Depression, unspecified (6) Anxiety: Status: Acute Comment: Zoloft. counseling recommended. Orders: Orders POC Urinalysis 2 Dip (Clinic) Today Clinical Quality Measures Falls Risk Screening/Assistive Devices Have you fallen in the past year?: No 03/09/25 1007 <Electronically signed by Rose St DO> Date _ Rose Mahmood DO Cosigner Signature: Date (if applicable) CC: ~ [facility] Work Phone: Progress note Author Suzanne Salazar [facility] Note Date/Time March 23, 2025 1 :54pm [facility] [address] [place] [address], [address] [place] [address] OFFICE VISIT Date of Service: 03/23/25 MR#: [id number] Acct: [id number] Name: MARTIN CASTELLANOS Rep #: [id number] : 1995 Provider: LUCINDA Salazar Age/Sex: 29/F Location: [facility] [place] Status: Signed Intake Vital Signs 02/11/25 09:41 03/09/25 09:27 03/23/25 13:40 Height 5 ft 4 in 5 ft 4 in 5 ft 4 in Weight: 207 lb 1 oz BMI 35.5 BP 112/81 H Intake Visit Reasons: 34wk ob Automotive Vehicle Inspector Required: No Is patient in pain?: No Allergies Penicillins Allergy (Intermediate, Verified 03/23/25 13:42) Hives Medications ?Medication ?Instructions ?Recorded ?Confirmed ?Type multivitamin no.47-iron fum 27 1 cap PO Check with wang elder doctor 06/14/21 03/23/25 History mg-folate no.1 1 mg-dha 300 mg capsule (PNV-DHA) cholecalciferol (vitamin D3) 125 125 mcg PO QDAY 04/2803/23/25 History mcg (5,000 unit) capsule magnesium gluconate 30 mg tablet 30 mg PO QDAY 4 03/23/25 History sertraline 50 mg tablet (Zoloft) 50 mg PO DAILY #90 ta bs 04/28/24 03/23/25 Rx cetirizine 10 mg tablet (Zyrtec) 10 mg PO QDAY PRN 05/0503/23/25 History Last Menstrual Period: 07/23/24 Zika: Zika virus screening: Negative : Yes PFSH PFSH Medical History 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 Vaginal delivery COVID-19 vaccine series completed Surgical History H/O wisdom tooth extraction Family History Mother Hypertension Grandmother Breast cancer Paternal grt Grandmother Grandmother Hypertension Breast cancer, Onset Age: 60 Paternal Social History adopted: No household members: spouse housing: house number of children: 1 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al status: employed 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 pets and animals: Yes pets and animals: dog(s) history of recent travel: No sexually active: Yes Smoking Status: Never smoker second hand exposure: Yes alcohol intake: current alcohol intake frequency: holidays/special occasions only details: not while substance use type: does not use well-balanced diet: daily or most days caffeine: Yes Type: coffee Number of servings: 1 eating out: rarely or never during the past year weight has: remained stable what type of physical activity do you participate in: other details: Pelaton frequency: 3-4 times per week duration: 30-45 minutes/day juan alberto/lutheran: Druze seatbelt use: always do you feel safe at home: Yes additional social history: - Itz History 2 Elective abortions Hx Para 1 Spontaneous abortions Hx # Term Pregnancies Ectopic pregnancies Hx # Pregnancies Multiple births # of living children 1 Past Pregnancies Del. Date Name GA/Weeks Outcome Route Bth Weight Infant Gen Labor Lgth Anes the [facility] Provider FOB 02/05/22 Michael 41 live - full term 8#3oz Female epidu ral [facility] Dorothy Mobley Delivery Date: 02/05/22 Last Updated by: Ruthie Costello see problem list for complications, and 41 IOL postdates sm girl michael atony HPI 34wk ob Details: MARTIN CASTELLANOS is a 29 year old who presents for routine OB visit. OB Visit ANJEL Calculator Estimated Delivery Date Method Current WG Current Estimate 04/29/25 LMP (Certain) 34w 5d Expected Delivery Route/Plan Labor Preferences- CB/BF classes: no labor support person: Itz labor intervention preferences: [] pain management options preferred: epidural cut cord/dad catch: yes : yes PP control planned: [] discussed possible routes of delivery and associated risks: [] special requests: [] Specific Issue/Plans Covid status: [] Flu vaccine: declines Tdap vaccine: given Rhogam: NA LARC form signed: declined movement and labor precautions reviewed. Problem list reviewed and updated with the most current plan of care details and appropriate orders placed. Relevant counseling for the gestational age provided. Continue routine care and follow up unless otherwise noted in visit notes/problem list details Initial Weight: Not Recorded Date -?-?-?-?-?-?-?-?-?-?-?-?- EGA Weight BP Urine Prot -?-?-?-?-?-?-?-?-?-?-?-?- Glucose FHR FuHt Pres Dilation -?-?-?-?-?-?-?-?-?-?-?-?- Effaced St Visit Note 09/29/24 -?-?-?-?-?-?-?-?-?-?-?-?- 9w 5d 171 lb 4 oz 129/78 -?-?-?-?-?-?-?-?-?-?-?-?- 165 -?-?-?-?-?-?-?-?-?-?-?-?- SM- CRL 3.2 cm c ons with LMP 11/05/24 -?-?-?-?-?-?-?-?-?-?-?-?- 15w 0d 179 lb 2 oz 125/85 Nega tive -?-?-?-?-?-?-?-?-?-?-?-?- Negative 160 -?-?-?-?-?-?-?-?-?-?-?-?- JV- no complaint s today. anatomy scan ordered. bedside scan looks great with movement. patient reassured. 12/01/24 -?-?-?-?-?-?-?-?-?-?-?-?- 18w 5d 181 lb 4 oz 137/73 Nega tive -?-?-?-?-?-?-?-?-?-?-?-?- Negative 150 -?-?-?-?-?-?-?-?-?-?-?-?- Sm- no vb crampi ng anzered quesitons about hemorrhage pp anatomy scan today 12/31/24 -?-?-?-?-?-?-?-?-?-?-?-?- 23w 0d 192 lb 8 oz 108/74 Nega tive -?-?-?-?-?-?-?-?-?-?-?-?- Negative 168 -?-?-?-?-?-?-?-?-?-?-?-?- JV- no lof, vagi nal bleeding, or dec fm. follow up us was normal. has restless legs. iron and magnesium not helping. 01/26/25 -?-?-?-?-?-?-?-?-?-?-?-?- 26w 5d 197 lb 2 oz 131/76 Nega tive -?-?-?-?-?-?-?-?-?-?-?-?- Negative 150 -?-?-?-?-?-?-?-?-?-?-?-?- SM- no vb lof go od fm no regular ctx. 02/11/25 -?-?-?-?-?-?-?-?-?-?-?-?- 29w 0d 200 lb 2 oz 127/80 Nega tive -?-?-?-?-?-?-?-?-?-?-?-?- Negative 125 33 -?-?-?-?-?-?-?-?-?-?-?-?- JV- no lof, vagi nal bleeding, or dec fm. 02/25/25 -?-?-?-?-?-?-?-?-?-?-?--?- 31w 0d 201 lb 4 oz 131/82 Nega tive -?-?-?-?-?-?-?-?-?-?-?-?- Negative 135 31 -?-?-?-?-?-?-?-?-?-?-?-?- SM- no vb lof go od fm no reguar ctx 03/09/25 -?-?-?-?-?-?-?-?-?-?-?-?- 32w 5d 203 lb 6 oz 119/79 Nega tive -?-?-?-?-?-?-?-?-?-?-?-?- Negative 155 33 -?-?-?-?-?-?-?-?-?-?--?-?- JV- no lof, vagi nal bleeding, or dec fm. no complaints 03/23/25 -?-?-?-?-?-?-?-?-?-?-?-?- 34w 5d 207 lb 1 oz 112/81 Nega tive -?-?-?-?-?-?-?-?-?-?--?-?- Negative 142 35 -?-?-?-?-?-?-?-?-?-?-?-?- MH-No VB, LOF. G ood FM. No concerns ACOG First Trimester First Trimester: Desire for , Alcohol, Tobacco Cessation, Illicit/Recreational Drug/Substance Use, Intimate Partner Violence, Barriers to care, Unstable Housing, Communication Barriers, Environmental/Work Hazards, Anticipated Course of Care, Toxoplasmosis Precations, Use of Any medications, Sexual activity, Exercise, Dental Care, Sauna/Hot tub use, Seat Belt use, Childbirth classes/Hospital facilities, , Travel, Indications for Ultrasound and Screening for Aneuploidy Second Trimester Second Trimester: Signs and Symptoms of Labor and Reproductive Life Planning & Contreception Third Trimester Third Trimester: Pain Management Plans, Labor support person(s), Immediate Larc, Signs and Symptoms of Preeclampsia, Infant Feeding Yes , Family Medical Leave or Disability Forms and Intimate Partner Violence ROS Const Reports system reviewed and no additional complaints, except as documented GI Denies abdominal pain, Denies nausea and Denies vomiting Exam Const General: cooperative Nutritional Appearance: well nourished GI Palpation: soft, nontender and other (gravid) Results POC Urinalysis 2 Dip (Clinic) Office Urine Glucose Negative Last Edit by Carmel Hernandez on 03/23/25 13 :45 Office Urine Protein Negative Last Edit by Carmel Hernandez on 03/23/25 13 :45 Coding Level of Care Code OB Routine Diagnoses Encounter for supervision of other normal in third trimester Z34.83 Normal : other normal Trimester: third trimester 34 weeks gestation of Z3A.34 Weeks of gestation: 34 weeks History of atony of uterus Z87.59 Family history of transposition of great vessels Z82.79 Depression, unspecified depression type F32.A Depression Type: unspecified Anxiety F41.9 Assessment and Plan Assessment and Plan (1) Supervision of normal : Status: Acute Qualifiers: Normal : other normal Trimester: third trimester Qualified Code(s): Z34.83 - Encounter for supervision of other normal , third trimester Comment: PRR , ANJEL 04/29, girl Alicia CHAVEZ Michael, Itz (2) : Status: Acute Qualifiers: Weeks of gestation: 34 weeks Qualified Code(s): Z3A.34 - 34 weeks gestation of Comment: Requests docs or Suzanne only. declined NIPT & Carrier testing (3) History of atony of uterus: Status: Acute (4) Family history of transposition of great vessels: Status: Acute Comment: echo declined (5) Depression: Status: Acute Qualifiers: Depression Type: unspecified Qualified Code(s): F32.A - Depression, unspecified (6) Anxiety: Status: Acute Comment: Zoloft. counseling recommended. Orders: Orders POC Urinalysis 2 Dip (Clinic) Today Plan problem list reviewed and updated for most current plan of care and appropriate orders placed. Relevant counseling for the gestational age appropriate provided and ACOG education checklist updated. Continue routine care and follow up. 03/23/25 1239 <Electronically signed by Suzanne saldana CLIENT SOLUTIONS SPECIALIST CLIENT SOLUTIONS SPECIALIST-C> Date _ Suzanne Salazar CLIENT SOLUTIONS SPECIALIST CLIENT SOLUTIONS SPECIALIST-C Cosigner Signature: Date (if applicable) CC: ~ [facility] Work Phone: Reason for referral (narrative)No reason for referral information availableWSt. Vincent [facility] Work Phone: Family History No Family History Records FoundUnknown Family Member Name Dates Details Maternal Grandfather Comments:lung cancer, HTN Status:Active Paternal Grandmother Comments:breast cancer Status:Active Unknown Family Member Name Dates Details Maternal Grandfather Comments:lung cancer, HTN Status:Active Paternal Grandmother Comments:breast cancer Status:Active Unknown Family Member Name Dates Details Maternal Grandfather Comments:lung cancer, HTN Status:Active Paternal Grandmother Comments:breast cancer Status:Active Unknown Family Member Name Dates Details Maternal Grandfather Comments:lung cancer, HTN Status:Active Paternal Grandmother Comments:breast cancer Status:Active Relationship Condition Age at Onset Recorded Date/T anju mother Hypertension Unknown grandmother Malignant neoplasm of breast Unknown grandmother Hypertension Unknown Unknown Family Member Name Dates Details Maternal Grandfather Comments:lung cancer, HTN Status:Active Paternal Grandmother Comments:breast cancer Status:Active Unknown Family Member Name Dates Details Maternal Grandfather Comments:lung cancer, HTN Status:Active Paternal Grandmother Comments:breast cancer Status:Active Unknown Family Member Name Dates Details Maternal Grandfather Comments:lung cancer, HTN Status:Active Paternal Grandmother Comments:breast cancer Status:Active Unknown Family Member Name Dates Details Maternal Grandfather Comments:lung cancer, HTN Status:Active Paternal Grandmother Comments:breast cancer Status:Active Unknown Family Member Name Dates Details Maternal Grandfather Comments:lung cancer, HTN Status:Active Paternal Grandmother Comments:breast cancer Status:Active Unknown Family Member Name Dates Details Maternal Grandfather Comments:lung cancer, HTN Status:Active Paternal Grandmother Comments:breast cancer Status:Active Unknown Family Member Name Dates Details Maternal Grandfather Comments:lung cancer, HTN Status:Active Paternal Grandmother Comments:breast cancer Status:Active Relationship Condition Age at Onset Recorded Date/T anju mother Hypertension Unknown grandmother Malignant neoplasm of breast Unknown grandmother Hypertension Unknown Malignant neoplasm of breast 60 Instructions Name Dates Details Nonsmoker : How to access he alth information online Indication:Nonsmoker Nonsmoker : How to access he alth information online - Detail Indication:Nonsmoker Nonsmoker : Patient Instruct ions Indication:Nonsmoker Acute pharyngitis : How to a ccess health information online Indication:Acute pharyngitis Acute pharyngitis : Patient Instructions Indication:Acute pharyngitis Name Dates Details Patient Instructions Indication:Well woman exam (Renamed from Encounter for well woman exam) Start:09-Aug-2020 Instruction Type:Provider Instructions for Treatment How to Access Health Informa tion Online using Patient Portal and [employer] Apps Indication:Well woman exam (Renamed from Encounter for well woman exam) Start:09-Aug-2020 Instruction Type:Patient Education How to access health informa tion online Indication:Well woman exam (Renamed from Encounter for well woman exam) Start:16-Jun-2019 Instruction Type:Patient Education How to access health informa tion online - Detail Indication:Well woman exam (Renamed from Encounter for well woman exam) Start:16-Jun-2019 Instruction Type:Patient Education Patient Instructions Indication:Well woman exam (Renamed from Encounter for well woman exam) Start:16-Jun-2019 Instruction Type:Provider Instructions for Treatment How to access health informa tion online Indication:Nonsmoker Start:10-Jun-2018 Instruction Type:Patient Education How to access health informa tion online - Detail Indication:Nonsmoker Start:10-Jun-2018 Instruction Type:Patient Education Patient Instructions Indication:Nonsmoker Start:10-Jun-2018 Instruction Type:Provider Instructions for Treatment How to access health informa tion online Indication:Acute pharyngitis Start:23-May-2017 Instruction Type:Patient Education Patient Instructions Indication:Acute pharyngitis Start:23-May-2017 Instruction Type:Provider Instructions for Treatment Name Dates Details Patient Instructions Indication:Well woman exam (Renamed from Encounter for well woman exam) Start:09-Aug-2020 Instruction Type:Provider Instructions for Treatment How to Access Health Informa tion Online using Patient Portal and [employer] Apps Indication:Well woman exam (Renamed from Encounter for well woman exam) Start:09-Aug-2020 Instruction Type:Patient Education How to access health informa tion online Indication:Well woman exam (Renamed from Encounter for well woman exam) Start:16-Jun-2019 Instruction Type:Patient Education How to access health informa tion online - Detail Indication:Well woman exam (Renamed from Encounter for well woman exam) Start:16-Jun-2019 Instruction Type:Patient Education Patient Instructions Indication:Well woman exam (Renamed from Encounter for well woman exam) Start:16-Jun-2019 Instruction Type:Provider Instructions for Treatment How to access health informa tion online Indication:Nonsmoker Start:10-Jun-2018 Instruction Type:Patient Education How to access health informa tion online - Detail Indication:Nonsmoker Start:10-Jun-2018 Instruction Type:Patient Education Patient Instructions Indication:Nonsmoker Start:10-Jun-2018 Instruction Type:Provider Instructions for Treatment How to access health informa tion online Indication:Acute pharyngitis Start:23-May-2017 Instruction Type:Patient Education Patient Instructions Indication:Acute pharyngitis Start:23-May-2017 Instruction Type:Provider Instructions for Treatment Summary Purpose Advance Directives No Advanced Directives Records Found Advance Directive Response Recorded Date/ Time Living Will No December 14, 2021 1 1:16am Power of Knitting Supervisor No December 14, 2021 11:16am Advance Directive Response Recorded Date/ Time Living Will No February 04 7:47am Power of Knitting Supervisor No February 04 022 7:47am Chief Complaint and Reason for Visit Chief Complaint NOB LMP 04/30 13 WK OB 17 WK OB 21WK OB 26 WK OB Reason for Visit Asthma Family history of congenital anomaly of cardiovascular system Seasonal allergies Supervision of normal COVID-19 vaccine series completed Asthma Family history of congenital anomaly of cardiovascular system Seasonal allergies Supervision of normal COVID-19 vaccine series completed Asthma Family history of congenital anomaly of cardiovascular system Seasonal allergies Supervision of normal COVID-19 vaccine series completed Asthma Family history of congenital anomaly of cardiovascular system Seasonal allergies Supervision of normal Asthma Family history of congenital anomaly of cardiovascular system Seasonal allergies Supervision of normal Chief Complaint 17 WK OB 21WK OB 26 WK OB 28 WK OB 30 WK OB 32 WK 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 Reason for Visit Asthma Family history of congenital anomaly of cardiovascular system Seasonal allergies Supervision of normal COVID-19 vaccine series completed Asthma Family history of congenital anomaly of cardiovascular system Seasonal allergies Supervision of normal Asthma Family history of congenital anomaly of cardiovascular system Seasonal allergies Supervision of normal Asthma Family history of congenital anomaly of cardiovascular system Seasonal allergies Supervision of normal Asthma Family history of congenital anomaly of cardiovascular system Seasonal allergies Supervision of normal Asthma Family history of congenital anomaly of cardiovascular system Seasonal allergies Supervision of normal Chief Complaint 21WK OB 26 WK OB 28 WK OB 30 WK OB 32 WK 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 34 WK OB Amb Documentation tachycardia/ 33 wks 36 WK OB Tachycardia, unspecified Reason for Visit Asthma Seasonal allergies Supervision of normal Family history of congenital anomaly of cardiovascular system Asthma Seasonal allergies Supervision of normal Family history of congenital anomaly of cardiovascular system Asthma Seasonal allergies Supervision of normal Family history of congenital anomaly of cardiovascular system Asthma Seasonal allergies Supervision of normal Family history of congenital anomaly of cardiovascular system Asthma Seasonal allergies Supervision of normal Family history of congenital anomaly of cardiovascular system tachycardia Supervision of normal Family history of congenital anomaly of cardiovascular system Heart murmur Tachycardia Asthma tachycardia Heart murmur Palpitations Seasonal allergies Supervision of normal Tachycardia Family history of congenital anomaly of cardiovascular system Chief Complaint 26 WK OB 28 WK OB 30 WK OB 32 WK 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 34 WK OB Amb Documentation tachycardia/ 33 wks 36 WK OB Tachycardia, unspecified 37 WK OB 38 WK OB GROWTH 39 WK OB est ob 40w6d VAGINAL DELIVERY INDUCTION VAGINAL DELIVERY VAGINAL DELIVERY Reason for Visit Asthma Family history of congenital anomaly of cardiovascular system Seasonal allergies Supervision of normal Asthma Family history of congenital anomaly of cardiovascular system Seasonal allergies Supervision of normal Asthma Family history of congenital anomaly of cardiovascular system Seasonal allergies Supervision of normal Asthma Family history of congenital anomaly of cardiovascular system Seasonal allergies Supervision of normal Family history of congenital anomaly of cardiovascular system tachycardia Supervision of normal Heart murmur Tachycardia Asthma Family history of congenital anomaly of cardiovascular system tachycardia Heart murmur Palpitations Seasonal allergies Supervision of normal Tachycardia Asthma Family history of congenital anomaly of cardiovascular system tachycardia Heart murmur Palpitations Seasonal allergies Supervision of normal Tachycardia Asthma Family history of congenital anomaly of cardiovascular system tachycardia Seasonal allergies Supervision of normal Asthma Family history of congenital anomaly of cardiovascular system Seasonal allergies Supervision of normal Asthma Family history of congenital anomaly of cardiovascular system Seasonal allergies Supervision of normal 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 Vaginal delivery Asthma Encounter for induction of labor Family history of congenital anomaly of cardiovascular system Seasonal allergies Supervision of normal Chief Complaint Admit Date New OB, LMP 2/12, ANJEL 04/29September 29, 2024 10:06am Reason for Visit Admit Date Anxiety September 29, 2024 10: 06am Depression September 29, 2024 10: 06am History of atony of uterus Ap 2024 10:06am September 29, 2024 10: 06am Supervision of normal September 292024 10:06am Chief Complaint Admit Date New OB, LMP 2/12, ANJEL 04/29September 29, 2024 10:06am 14wk OB November 05, 2024 8:39a m Reason for Visit Admit Date Anxiety September 29, 2024 10: 06am Depression September 29, 2024 10: 06am History of atony of uterus Ap 2024 10:06am September 29, 2024 10: 06am Supervision of normal September 292024 10:06am Anxiety November 05, 2024 8:39a m Depression November 05, 2024 8:39a m History of atony of uterus Ma y 2024 8:39am November 05, 2024 8:39a m Supervision of normal October 8:39am Chief Complaint Admit Date New OB, LMP 2/12, ANJEL 04/29September 29, 2024 10:06am 14wk OB November 05, 2024 8:39a m 18 wk ob December 01, 2024 10:0 7am Reason for Visit Admit Date Anxiety September 29, 2024 10: 06am Depression September 29, 2024 10: 06am History of atony of uterus Ap ril 2024 10:06am September 29, 2024 10: 06am Supervision of normal September 292024 10:06am Anxiety November 05, 2024 8:39a m Depression November 05, 2024 8:39a m History of atony of uterus Ma y 2024 8:39am November 05, 2024 8:39a m Supervision of normal October 8:39am Anxiety December 01, 2024 10:0 7am Depression December 01, 2024 10:0 7am History of atony of uterus Ju ne 2024 10:07am December 01, 2024 10:0 7am Supervision of normal November 10:07am Chief Complaint Admit Date New OB, LMP 07/23, ANJEL 04/29September 29, 2024 10:06am 14wk OB November 05, 2024 8:39a m 18 wk ob December 01, 2024 10:0 7am 22 wk ob December 31, 2024 8:34 am Reason for Visit Admit Date Anxiety September 29, 2024 10: 06am Depression September 29, 2024 10: 06am History of atony of uterus Ap ril 2024 10:06am September 29, 2024 10: 06am Supervision of normal September 292024 10:06am Anxiety November 05, 2024 8:39a m Depression November 05, 2024 8:39a m History of atony of uterus Ma y 2024 8:39am November 05, 2024 8:39a m Supervision of normal October 8:39am Anxiety December 01, 2024 10:0 7am Depression December 01, 2024 10:0 7am History of atony of uterus Ju ne 2024 10:07am December 01, 2024 10:0 7am Supervision of normal November 10:07am Anxiety December 31, 2024 8:34 am Depression December 31, 2024 8:34 am Family history of transposition of great vessels December 31, 2024 8:34am History of atony of uterus Ju ly 2024 8:34am December 31, 2024 8:34 am Supervision of normal December 8:34am Chief Complaint Admit Date New OB, LMP 2/12, ANJEL 04/29September 29, 2024 10:06am 14wk OB November 05, 2024 8:39a m 18 wk ob December 01, 2024 10:0 7am 22 wk ob December 31, 2024 8:34 am 26 wk ob/glucose January 26, 2025 9: 03am Reason for Visit Admit Date Anxiety September 29, 2024 10: 06am Depression September 29, 2024 10: 06am History of atony of uterus Ap 2024 10:06am September 29, 2024 10: 06am Supervision of normal September 292024 10:06am Anxiety November 05, 2024 8:39a m Depression November 05, 2024 8:39a m History of atony of uterus Ma y 2024 8:39am November 05, 2024 8:39a m Supervision of normal October 8:39am Anxiety December 01, 2024 10:0 7am Depression December 01, 2024 10:0 7am History of atony of uterus Ju ne 2024 10:07am December 01, 2024 10:0 7am Supervision of normal November 10:07am Anxiety December 31, 2024 8:34 am Depression December 31, 2024 8:34 am Family history of transposition of great vessels December 31, 2024 8:34am History of atony of uterus Ju ly 2024 8:34am December 31, 2024 8:34 am Supervision of normal December 8:34am Anxiety January 26, 2025 9: 03am Depression January 26, 2025 9: 03am Family history of transposition of great vessels January 26, 2025 9:03am History of atony of uterus Au andrew 2024 9:03am January 26, 2025 9: 03am Supervision of normal January 092024 9:03am Chief Complaint Admit Date 14wk OB November 05, 2024 8:39a m 18 wk ob December 01, 2024 10:0 7am 22 wk ob December 31, 2024 8:34 am 26 wk ob/glucose January 26, 2025 9: 03am Reason for Visit Admit Date Anxiety November 05, 2024 8:39a m Depression November 05, 2024 8:39a m History of atony of uterus Ma y 2024 8:39am November 05, 2024 8:39a m Supervision of normal October 8:39am Anxiety December 01, 2024 10:0 7am Depression December 01, 2024 10:0 7am History of atony of uterus Ju ne 2024 10:07am December 01, 2024 10:0 7am Supervision of normal November 10:07am Anxiety December 31, 2024 8:34 am Depression December 31, 2024 8:34 am Family history of transposition of great vessels December 31, 2024 8:34am History of atony of uterus Ju ly 2024 8:34am December 31, 2024 8:34 am Supervision of normal December 8:34am Anxiety January 26, 2025 9: 03am Depression January 26, 2025 9: 03am Family history of transposition of great vessels January 26, 2025 9:03am History of atony of uterus Au andrew 2024 9:03am January 26, 2025 9: 03am Supervision of normal January 092024 9:03am Chief Complaint Admit Date 14wk OB November 05, 2024 8:39a m 18 wk ob December 01, 2024 10:0 7am 22 wk ob December 31, 2024 8:34 am 26 wk ob/glucose January 26, 2025 9: 03am 28 wk ob February 11, 2025 9:38am Reason for Visit Admit Date Anxiety November 05, 2024 8:39a m Depression November 05, 2024 8:39a m History of atony of uterus Ma y 2024 8:39am November 05, 2024 8:39a m Supervision of normal October 8:39am Anxiety December 01, 2024 10:0 7am Depression December 01, 2024 10:0 7am History of atony of uterus Ju ne 2024 10:07am December 01, 2024 10:0 7am Supervision of normal November 10:07am Anxiety December 31, 2024 8:34 am Depression December 31, 2024 8:34 am Family history of transposition of great vessels December 31, 2024 8:34am History of atony of uterus Ju ly 2024 8:34am December 31, 2024 8:34 am Supervision of normal December 8:34am Anxiety January 26, 2025 9: 03am Depression January 26, 2025 9: 03am Family history of transposition of great vessels January 26, 2025 9:03am History of atony of uterus Au andrew 2024 9:03am January 26, 2025 9: 03am Supervision of normal January 092024 9:03am Anxiety February 11, 2025 9:38am Depression February 11, 2025 9:38am Family history of transposition of great vessels February 11, 2025 9:38am History of atony of uterus Se pt2024 9:38am February 11, 2025 9:38am Supervision of normal Septembe r 2024 9:38am Chief Complaint Admit Date 14wk OB November 05, 2024 8:39a m 18 wk ob December 01, 2024 10:0 7am 22 wk ob December 31, 2024 8:34 am 26 wk ob/glucose January 26, 2025 9: 03am 28 wk ob February 11, 2025 9:38am 30 WK OB February 25, 2025 9:15am Reason for Visit Admit Date Anxiety November 05, 2024 8:39a m Depression November 05, 2024 8:39a m History of atony of uterus Ma y 2024 8:39am November 05, 2024 8:39a m Supervision of normal October 8:39am Anxiety December 01, 2024 10:0 7am Depression December 01, 2024 10:0 7am History of atony of uterus Ju ne 2024 10:07am December 01, 2024 10:0 7am Supervision of normal November 10:07am Anxiety December 31, 2024 8:34 am Depression December 31, 2024 8:34 am Family history of transposition of great vessels December 31, 2024 8:34am History of atony of uterus Ju ly 2024 8:34am December 31, 2024 8:34 am Supervision of normal December 8:34am Anxiety January 26, 2025 9: 03am Depression January 26, 2025 9: 03am Family history of transposition of great vessels January 26, 2025 9:03am History of atony of uterus Au andrew 2024 9:03am January 26, 2025 9: 03am Supervision of normal January 092024 9:03am Anxiety February 11, 2025 9:38am Depression February 11, 2025 9:38am Family history of transposition of great vessels February 11, 2025 9:38am History of atony of uterus Se ptember 2024 9:38am February 11, 2025 9:38am Supervision of normal [facility] 2024 9:38am Anxiety February 25, 2025 9:15am Depression February 25, 2025 9:15am Family history of transposition of great vessels February 25, 2025 9:15am History of atony of uterus Se ptember 2024 9:15am February 25, 2025 9:15am Supervision of normal [facility] r 2024 9:15am Chief Complaint Admit Date 18 wk ob December 01, 2024 10:0 7am 22 wk ob December 31, 2024 8:34 am 26 wk ob/glucose January 26, 2025 9: 03am 28 wk ob February 11, 2025 9:38am 30 WK OB February 25, 2025 9:15am 32 WK OB March 09, 2025 9:23am Reason for Visit Admit Date Anxiety December 01, 2024 10:0 7am Depression December 01, 2024 10:0 7am History of atony of uterus Ju ne 2024 10:07am December 01, 2024 10:0 7am Supervision of normal November 10:07am Anxiety December 31, 2024 8:34 am Depression December 31, 2024 8:34 am Family history of transposition of great vessels December 31, 2024 8:34am History of atony of uterus Ju ly 2024 8:34am December 31, 2024 8:34 am Supervision of normal December 8:34am Anxiety January 26, 2025 9: 03am Depression January 26, 2025 9: 03am Family history of transposition of great vessels January 26, 2025 9:03am History of atony of uterus Au 2024 9:03am January 26, 2025 9: 03am Supervision of normal January 092024 9:03am Anxiety February 11, 2025 9:38am Depression February 11, 2025 9:38am Family history of transposition of great vessels February 11, 2025 9:38am History of atony of uterus Se pt2024 9:38am February 11, 2025 9:38am Supervision of normal [facility] 2024 9:38am Anxiety February 25, 2025 9:15am Depression February 25, 2025 9:15am Family history of transposition of great vessels February 25, 2025 9:15am History of atony of uterus Se ptember 2024 9:15am February 25, 2025 9:15am [facility] 9:15[facility] Anxiety March 09, 2025 9:23am Depression March 09, 2025 9:23am Family history of transposition of great vessels March 09, 2025 9:23am History of atony of uterus Se ptember 2024 9:23am March 09, 2025 9:23am [facility] 9:23am Chief Complaint Admit Date 22 wk ob December 31, 2024 8:34 am 26 wk ob/glucose January 26, 2025 9: 03am 28 wk ob February 11, 2025 9:38am 30 WK OB February 25, 2025 9:15am 32 WK OB March 09, 2025 9:23am 34wk ob March 23, 2025 1 :39pm 36wk 5d ob April 06, 2025 2 :13pm Reason for Visit Admit Date Anxiety December 31, 2024 8:34 am Depression December 31, 2024 8:34 am Family history of transposition of great vessels December 31, 2024 8:34am History of atony of uterus Ju ly 2024 8:34am December 31, 2024 8:34 am Supervision of normal December 8:34am Anxiety January 26, 2025 9: 03am Depression January 26, 2025 9: 03am Family history of transposition of great vessels January 26, 2025 9:03am History of atony of uterus Au 2024 9:03am January 26, 2025 9: 03am Supervision of normal January 092024 9:03am Anxiety February 11, 2025 9:38am Depression February 11, 2025 9:38am Family history of transposition of great vessels February 11, 2025 9:38am History of atony of uterus Se 2024 9:38am February 11, 2025 9:38am Supervision of normal [facility] r 2024 9:38am Anxiety February 25, 2025 9:15am Depression February 25, 2025 9:15am Family history of transposition of great vessels February 25, 2025 9:15am History of atony of uterus Se ptember 2024 9:15am February 25, 2025 9:15am Supervision of normal [facility] r 2024 9:15am Anxiety March 09, 2025 9:23am Depression March 09, 2025 9:23am Family history of transposition of great vessels March 09, 2025 9:23am History of atony of uterus Se pt2024 9:23am March 09, 2025 9:23am Supervision of normal [facility] r 2024 9:23am Anxiety March 23, 2025 1 :39pm Depression March 23, 2025 1 :39pm Family history of transposition of great vessels March 23, 2025 1:39pm History of atony of uterus Oc tober 2024 1:39pm March 23, 2025 1 :39pm Supervision of normal March 23, 2025 1:39pm Anxiety April 06, 2025 2 :13pm Depression April 06, 2025 2 :13pm Family history of transposition of great vessels April 06, 2025 2:13pm History of atony of uterus Oc tober 2024 2:13pm April 06, 2025 2 :13pm Supervision of normal April 06, 2025 2:13pm Additional Source Comments INFORMATION SOURCE (unrecogn ized section and content) DATE CREATED AUTHOR 07/15/2021 [facility] DATE CREATED AUTHOR AUTHOR'S ORGANIZ ATION 09/19/2022 [facility] DATE CREATED AUTHOR AUTHOR'S ORGANIZ ATION 07/23/2024 [facility] [place] DATE CREATED AUTHOR AUTHOR'S ORGANIZ ATION 12/18/2024 [facility] DATE CREATED AUTHOR AUTHOR'S ORGANIZ ATION 04/21/2025 [facility] Goals (unrecognized section and content) Type Care Experience svdLabor Preferences -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 Care Experience Labor Preferences-CB /BF classes: nolabor support person: Justinlabor intervention preferences: []pain management options preferred: epiduralcut cord/dad catch: yesbreastfeeding: yesPP control planned: []discussed possible routes of delivery and associated risks: []special requests: [] Care Teams (unrecognized sec tion and content) Team Status: Active Member Role Status Dates LUCINDA Wesley Primary Care Provider Active Team Status: Inactive Member Role Status Dates LUCINDA Welsey Primary Care Provider Active Start: September 29, 2024 End: September 29, 2024 LUCINDA Wesley Referring Provider Active Start: September 29, 2024 End: September 29, 2024 Dr. Dorothy Lee MD Attending Provider Active Start: September 29, 2024 End: September 29, 2024 Team Status: Inactive Member Role Status Dates LUCINDA Wesley Primary Care Provider Active Start: September 29, 2024 End: September 29, 2024 Dr. Dorothy Lee MD Attending Provider Active Start: September 29, 2024 End: September 29, 2024 Dr. Dorothy Lee MD Referring Provider Active Start: September 29, 2024 End: September 29, 2024 Team Status: Inactive Member Role Status Dates LUCINDA Wesley Primary Care Provider Active Start: November 05, 2024 End: November 05, 2024 LUCINDA Wesley Referring Provider Active Start: November 05, 2024 End: November 05, 2024 Dr. Rose Mahmood , Attending Provider Activ e Start: November 05, 2024 End: November 05, 2024 Team Status: Active Member Role Status Dates LUCINDA Wesley Primary Care Provider Active Start: November 05, 2024 Dr. Rose Mahmood DO Attending Provider Activ e Start: November 05, 2024 Dr. Rose Mahmood , Referring Provider Activ e Start: November 05, 2024 Team Status: Inactive Member Role Status Dates Kiya Percy , CLIENT SOLUTIONS SPECIALIST-C Primary Care Provider Active Start: November 05, 2024 End: November 05, 2024 Dr. Rose Mahmood DO Attending Provider Activ e Start: November 05, 2024 End: November 05, 2024 Dr. Rose Mahmodo DO Referring Provider Activ e Start: November 05, 2024 End: November 05, 2024 Team Status: Inactive Member Role Status Dates Kiya Greer , CLIENT SOLUTIONS SPECIALIST-C Primary Care Provider Active Start: December 01, 2024 End: December 01, 2024 Kiya Greer , CLIENT SOLUTIONS SPECIALIST-C Referring Provider Active Start: December 01, 2024 End: December 01, 2024 Dr. Dorothy Lee MD Attending Provider Active Start: December 01, 2024 End: December 01, 2024 Team Status: Active Member Role/Relationship Status Dates Kiya Greer , CLIENT SOLUTIONS SPECIALIST-C Primary Care Provider Active Team Status: Inactive Member Role/Relationship Status Dates Kiya Greer , CLIENT SOLUTIONS SPECIALIST-C Primary Care Provider Active Start: September 29, 2024 End: September 29, 2024 Kiya Greer CLIENT SOLUTIONS SPECIALIST-C Referring Provider Active Start: September 29, 2024 End: September 29, 2024 Dr. Dorothy Lee MD Attending Provider Active Start: September 29, 2024 End: September 29, 2024 Team Status: Inactive Member Role/Relationship Status Dates Kiya Greer CLIENT SOLUTIONS SPECIALIST-C Primary Care Provider Active Start: September 29, 2024 End: September 29, 2024 Dr. Dorothy Lee MD Attending Provider Active Start: September 29, 2024 End: September 29, 2024 Dr. Dorothy Lee MD Referring Provider Active Start: September 29, 2024 End: September 29, 2024 Team Status: Inactive Member Role/Relationship Status Dates Kiya Greer , CLIENT SOLUTIONS SPECIALIST-C Primary Care Provider Active Start: November 05, 2024 End: November 05, 2024 Kiya Greer CLIENT SOLUTIONS SPECIALIST-C Referring Provider Active Start: November 05, 2024 End: November 05, 2024 Dr. Rose Mahmood DO Attending Provider Activ e Start: November 05, 2024 End: November 05, 2024 Team Status: Inactive Member Role/Relationship Status Dates Kiya Greer , CLIENT SOLUTIONS SPECIALIST-C Primary Care Provider Active Start: November 05, 2024 End: November 05, 2024 Dr. Rose Mahmood DO Attending Provider Activ e Start: November 05, 2024 End: November 05, 2024 Dr. Rose Mahmood DO Referring Provider Activ e Start: November 05, 2024 End: November 05, 2024 Team Status: Inactive Member Role/Relationship Status Dates Kiya Greer CLIENT SOLUTIONS SPECIALIST-C Primary Care Provider Active Start: December 01, 2024 End: December 01, 2024 Kiya Greer CLIENT SOLUTIONS SPECIALIST-C Referring Provider Active Start: December 01, 2024 End: December 01, 2024 Dr. Dorothy Lee MD Attending Provider Active Start: December 01, 2024 End: December 01, 2024 Team Status: Inactive Member Role/Relationship Status Dates Kiya Greer CLIENT SOLUTIONS SPECIALIST-C Primary Care Provider Active Start: December 31, 2024 End: December 31, 2024 Kiya Greer CLIENT SOLUTIONS SPECIALIST-C Referring Provider Active Start: December 31, 2024 End: December 31, 2024 Dr. Rose Mahmood DO Attending Provider Activ e Start: December 31, 2024 End: December 31, 2024 Team Status: Inactive Member Role/Relationship Status Dates Kiya Greer CLIENT SOLUTIONS SPECIALIST-C Primary Care Provider Active Start: January 26, 2025 End: January 26, 2025 Kiya Greer CLIENT SOLUTIONS SPECIALIST-C Referring Provider Active Start: January 26, 2025 End: January 26, 2025 Dr. Dorothy Lee MD Attending Provider Active Start: January 26, 2025 End: January 26, 2025 Team Status: Active Member Role/Relationship Status Dates Kiya Greer CLIENT SOLUTIONS SPECIALIST-C Primary Care Provider Active Start: January 26, 2025 Ranjana Neil CNM Attending Provider Active S tart: January 26, 2025 Ranjana Neil CNM Referring Provider Active S tart: January 26, 2025 Team Status: Inactive Member Role/Relationship Status Dates Kiya Greer CLIENT SOLUTIONS SPECIALIST-C Primary Care Provider Active Start: November 05, 2024 End: November 05, 2024 Kiya Greer CLIENT SOLUTIONS SPECIALIST-C Referring Provider Active Start: November 05, 2024 End: November 05, 2024 Dr. Rose Mahmood DO Attending Provider Activ e Start: November 05, 2024 End: November 05, 2024 Team Status: Inactive Member Role/Relationship Status Dates Kiya Greer , CLIENT SOLUTIONS SPECIALIST-C Primary Care Provider Active Start: November 05, 2024 End: November 05, 2024 Dr. Rose Mahmood , Attending Provider Activ e Start: November 05, 2024 End: November 05, 2024 Dr. Rose Mahmood , Referring Provider Activ e Start: November 05, 2024 End: November 05, 2024 Team Status: Inactive Member Role/Relationship Status Dates Kiya Greer , CLIENT SOLUTIONS SPECIALIST-C Primary Care Provider Active Start: December 01, 2024 End: December 01, 2024 Kiya Greer CLIENT SOLUTIONS SPECIALIST-C Referring Provider Active Start: December 01, 2024 End: December 01, 2024 Dr. Dorothy Lee MD Attending Provider Active Start: December 01, 2024 End: December 01, 2024 Team Status: Inactive Member Role/Relationship Status Dates Kiya Greer , CLIENT SOLUTIONS SPECIALIST-C Primary Care Provider Active Start: December 31, 2024 End: December 31, 2024 Kiya Greer , CLIENT SOLUTIONS SPECIALIST-C Referring Provider Active Start: December 31, 2024 End: December 31, 2024 Dr. Rose Mahmood , Attending Provider Activ e Start: December 31, 2024 End: December 31, 2024 Team Status: Inactive Member Role/Relationship Status Dates Kiya Greer , CLIENT SOLUTIONS SPECIALIST-C Primary Care Provider Active Start: January 26, 2025 End: January 26, 2025 Kiya Greer CLIENT SOLUTIONS SPECIALIST-C Referring Provider Active Start: January 26, 2025 End: January 26, 2025 Dr. Dorothy Lee MD Attending Provider Active Start: January 26, 2025 End: January 26, 2025 Team Status: Inactive Member Role/Relationship Status Dates Kiya Greer CLIENT SOLUTIONS SPECIALIST-C Primary Care Provider Active Start: January 26, 2025 End: January 26, 2025 Ranjana Neil CNM Attending Provider Active S tart: January 26, 2025 End: January 26, 2025 Ranjana Neil CNM Referring Provider Active S tart: January 26, 2025 End: January 26, 2025 Team Status: Inactive Member Role/Relationship Status Dates Kiya Greer , CLIENT SOLUTIONS SPECIALIST-C Primary Care Provider Active Start: February 11, 2025 End: February 11, 2025 Kiya Greer CLIENT SOLUTIONS SPECIALIST-C Referring Provider Active Start: February 11, 2025 End: February 11, 2025 Dr. Rose Mahmood , Attending Provider Activ e Start: February 11, 2025 End: February 11, 2025 Team Status: Active Member Role/Relationship Status Dates Kiya Greer CLIENT SOLUTIONS SPECIALIST-C Primary care physician Active Team Status: Inactive Member Role/Relationship Status Dates Kiya Greer CLIENT SOLUTIONS SPECIALIST-C Primary care physician Active Start: November 05, 2024 End: November 05, 2024 Kiya Greer CLIENT SOLUTIONS SPECIALIST-C Referring Provider Active Start: November 05, 2024 End: November 05, 2024 Dr. Rose Mahmood , Attending physician Acti ve Start: November 05, 2024 End: November 05, 2024 Team Status: Inactive Member Role/Relationship Status Dates Kiya Greer CLIENT SOLUTIONS SPECIALIST-C Primary care physician Active Start: November 05, 2024 End: November 05, 2024 Dr. Rose Mahmood , Attending physician Acti ve Start: November 05, 2024 End: November 05, 2024 Dr. Rose Mahmood , Referring Provider Activ e Start: November 05, 2024 End: November 05, 2024 Team Status: Inactive Member Role/Relationship Status Dates Kiya Greer CLIENT SOLUTIONS SPECIALIST-C Primary care physician Active Start: December 01, 2024 End: December 01, 2024 Kiya Greer CLIENT SOLUTIONS SPECIALIST-C Referring Provider Active Start: December 01, 2024 End: December 01, 2024 Dr. Dorothy Lee MD Attending physician Active Start: December 01, 2024 End: December 01, 2024 Team Status: Inactive Member Role/Relationship Status Dates Kiya Greer CLIENT SOLUTIONS SPECIALIST-C Primary care physician Active Start: December 31, 2024 End: December 31, 2024 Kiya Greer CLIENT SOLUTIONS SPECIALIST-C Referring Provider Active Start: December 31, 2024 End: December 31, 2024 Dr. Rsoe Mahmood , Attending physician Acti ve Start: December 31, 2024 End: December 31, 2024 Team Status: Inactive Member Role/Relationship Status Dates Kiya Greer CLIENT SOLUTIONS SPECIALIST-C Primary care physician Active Start: January 26, 2025 End: January 26, 2025 Kiya Greer CLIENT SOLUTIONS SPECIALIST-C Referring Provider Active Start: January 26, 2025 End: January 26, 2025 Dr. Dorothy Lee MD Attending physician Active Start: January 26, 2025 End: January 26, 2025 Team Status: Inactive Member Role/Relationship Status Dates Kiya Greer CLIENT SOLUTIONS SPECIALIST-C Primary care physician Active Start: January 26, 2025 End: January 26, 2025 Ranjana Neil CNM Attending physician Active Start: January 26, 2025 End: January 26, 2025 Ranjana Neil CNM Referring Provider Active S tart: January 26, 2025 End: January 26, 2025 Team Status: Inactive Member Role/Relationship Status Dates Kiya Greer CLIENT SOLUTIONS SPECIALIST-C Primary care physician Active Start: February 11, 2025 End: February 11, 2025 Kiya Greer , CLIENT SOLUTIONS SPECIALIST-C Referring Provider Active Start: February 11, 2025 End: February 11, 2025 Dr. Rose Mahmood DO Attending physician Active Start: February End: February 11, 2025 Team Status: Inactive Member Role/Relationship Status Dates Kiya Greer CLIENT SOLUTIONS SPECIALIST-C Primary care physician Active Start: February 25, 2025 End: February 25, 2025 Kiya Greer CLIENT SOLUTIONS SPECIALIST-C Referring Provider Active Start: February 25, 2025 End: February 25, 2025 Dr. Dorothy Lee MD Attending physician Active Start: February 25, 2025 End: February 25, 2025 Team Status: Inactive Member Role/Relationship Status Dates Kiya Greer CLIENT SOLUTIONS SPECIALIST-C Primary care physician Active Start: December 01, 2024 End: December 01, 2024 Kiya Greer CLIENT SOLUTIONS SPECIALIST-C Referring Provider Active Start: December 01, 2024 End: December 01, 2024 Dr. Dorothy Lee MD Attending physician Active Start: December 01, 2024 End: December 01, 2024 Team Status: Inactive Member Role/Relationship Status Dates Kiya Greer CLIENT SOLUTIONS SPECIALIST-C Primary care physician Active Start: December 31, 2024 End: December 31, 2024 Kiya Greer CLIENT SOLUTIONS SPECIALIST-C Referring Provider Active Start: December 31, 2024 End: December 31, 2024 Dr. Rose Mahmood DO Attending physician Acti ve Start: December 31, 2024 End: December 31, 2024 Team Status: Inactive Member Role/Relationship Status Dates Kiya Greer CLIENT SOLUTIONS SPECIALIST-C Primary care physician Active Start: January 26, 2025 End: January 26, 2025 Kiya Greer CLIENT SOLUTIONS SPECIALIST-C Referring Provider Active Start: January 26, 2025 End: January 26, 2025 Dr. Dorothy Lee MD Attending physician Active Start: January 26, 2025 End: January 26, 2025 Team Status: Inactive Member Role/Relationship Status Dates iKya Greer CLIENT SOLUTIONS SPECIALIST-C Primary care physician Active Start: January 26, 2025 End: January 26, 2025 Ranjana Neil CNM Attending physician Active Start: January 26, 2025 End: January 26, 2025 Ranjana Neil CNM Referring Provider Active S tart: January 26, 2025 End: January 26, 2025 Team Status: Inactive Member Role/Relationship Status Dates Kiya Greer CLIENT SOLUTIONS SPECIALIST-C Primary care physician Active Start: February 11, 2025 End: February 11, 2025 Kiya Greer CLIENT SOLUTIONS SPECIALIST-C Referring Provider Active Start: February 11, 2025 End: February 11, 2025 Dr. Rose Mahmood DO Attending physician Active Start: February End: February 11, 2025 Team Status: Inactive Member Role/Relationship Status Dates Kiya Greer CLIENT SOLUTIONS SPECIALIST-C Primary care physician Active Start: February 25, 2025 End: February 25, 2025 Kiya Greer CLIENT SOLUTIONS SPECIALIST-C Referring Provider Active Start: February 25, 2025 End: February 25, 2025 Dr. Dorothy Lee MD Attending physician Active Start: February 25, 2025 End: February 25, 2025 Team Status: Inactive Member Role/Relationship Status Dates Kiya Greer CLIENT SOLUTIONS SPECIALIST-C Primary care physician Active Start: March 09, 2025 End: March 09, 2025 Kiya Greer CLIENT SOLUTIONS SPECIALIST-C Referring Provider Active Start: March 09, 2025 End: March 09, 2025 Dr. Rose Mahmood DO Attending physician Active Start: February End: March 09, 2025 Team Status: Inactive Member Role/Relationship Status Dates Kiya Greer CLIENT SOLUTIONS SPECIALIST-C Primary care physician Active Start: December 31, 2024 End: December 31, 2024 Kiya Greer CLIENT SOLUTIONS SPECIALIST-C Referring Provider Active Start: December 31, 2024 End: December 31, 2024 Dr. Rose Mahmood DO Attending physician Acti ve Start: December 31, 2024 End: December 31, 2024 Team Status: Inactive Member Role/Relationship Status Dates Kiya Greer CLIENT SOLUTIONS SPECIALIST-C Primary care physician Active Start: January 26, 2025 End: January 26, 2025 Kiya Greer CLIENT SOLUTIONS SPECIALIST-C Referring Provider Active Start: January 26, 2025 End: January 26, 2025 Dr. Dorothy Lee MD Attending physician Active Start: January 26, 2025 End: January 26, 2025 Team Status: Inactive Member Role/Relationship Status Dates Kiya Greer CLIENT SOLUTIONS SPECIALIST-C Primary care physician Active Start: January 26, 2025 End: January 26, 2025 Ranjana Neil CNM Attending physician Active Start: January 26, 2025 End: January 26, 2025 Ranjana Neil CNM Referring Provider Active S tart: January 26, 2025 End: January 26, 2025 Team Status: Inactive Member Role/Relationship Status Dates Kiya Greer CLIENT SOLUTIONS SPECIALIST-C Primary care physician Active Start: February 11, 2025 End: February 11, 2025 Kiya Greer CLIENT SOLUTIONS SPECIALIST-C Referring Provider Active Start: February 11, 2025 End: February 11, 2025 Dr. Rose Mahmood DO Attending physician Active Start: February End: February 11, 2025 Team Status: Inactive Member Role/Relationship Status Dates Kiya Greer CLIENT SOLUTIONS SPECIALIST-C Primary care physician Active Start: February 25, 2025 End: February 25, 2025 Kiya Greer CLIENT SOLUTIONS SPECIALIST-C Referring Provider Active Start: February 25, 2025 End: February 25, 2025 Dr. Dorothy Lee MD Attending physician Active Start: February 25, 2025 End: February 25, 2025 Team Status: Inactive Member Role/Relationship Status Dates Kiya Greer CLIENT SOLUTIONS SPECIALIST-C Primary care physician Active Start: March 09, 2025 End: March 09, 2025 Kiya Greer CLIENT SOLUTIONS SPECIALIST-C Referring Provider Active Start: March 09, 2025 End: March 09, 2025 Dr. Rose Mahmood DO Attending physician Active Start: February End: March 09, 2025 Team Status: Inactive Member Role/Relationship Status Dates Kiya Greer CLIENT SOLUTIONS SPECIALIST-C Primary care physician Active Start: March 23, 2025 End: March 23, 2025 Kiya Greer CLIENT SOLUTIONS SPECIALIST-C Referring Provider Active Start: March 23, 2025 End: March 23, 2025 Suzanne Salazar NP CLIENT SOLUTIONS SPECIALIST-C Attending physician Active Start: March 23, 2025 End: March 23, 2025 Team Status: Inactive Member Role/Relationship Status Dates Kiya Greer NP-C Primary care physician Active Start: April 06, 2025 End: April 06, 2025 Kiya Greer CLIENT SOLUTIONS SPECIALIST-C Referring Provider Active Start: April 06, 2025 End: April 06, 2025 Dr. Rose Mahmood DO Attending physician Acti ve Start: April 06, 2025 End: April 06, 2025 Team Status: Active Member Role/Relationship Status Dates Kiya Greer CLIENT SOLUTIONS SPECIALIST-C Primary care physician Active Start: April 06, 2025 Dr. Rose Mahmood DO Attending physician Acti ve Start: April 06, 2025 FOR RECORDS PERTAINING TO PATIENTS WHO ARE OR HAVE BEEN ENROLLED IN A CHEMICAL DEPENDENCY/SUBSTANCEABUSE PROGRAM, SOME INFORMATION MAY BE OMITTED. This clinical summary was aggregated from multiple sources. Caution should be exercised in using it in the provision of clinical care. This summary normalizes information from multiple sources, and as a consequence, information in this document may materially change the coding, format and clinical context of patient data. In addition, data may be omitted in some cases. CLINICAL DECISIONS SHOULD BE BASED ON THE PRIMARY CLINICAL RECORDS. [employer] [employer] provides no warranty or guarantee of the accuracy or completeness of information in this document.
[2025-04-23 20:49] LABS: Hematocrit 34.2 % (37-47); Hemoglobin 11.3 g/dL (12.0-15.0); Mean Corp Hgb Conc 33.0 g/dL (32-36); Mean Corpuscular Volume 90.2 fL (81-99); Mean Platelet Vol. 10.8 fl (6.2-12.0); Platelet Count 161 K/mm3 (150-450); RBC Distribution Width CV 14.7 % (11.6-14.6); RBC Distribution Width SD 48.4 fl (35.1-43.9); Red Blood Count 3.79 M/mm3 (4.2-5.4); White Blood Count 8.4 K/mm3 (4.4-11.0)
[2025-04-23 21:09] LABS: Creatinine, Urine (random) 135.00 mg/dL (28.00-217.00); Protein, Urine (Random) 24.2 mg/dL (0.0-12.0); Protein:Creat Ratio 179 mg/g CRE (0-200)
[2025-04-23 21:40] LABS: AST(SGOT) 18 U/L (<=31); Alanine Aminotransfer ALT/SGPT 13 U/L (<=34); Estimated Creatinine Clearance 154.93 ml/min (50-250); Uric Acid 4.6 mg/dL (2.6-6.0)
--- NOTE | 2025-04-23 23:21 | OB.TRI.NOTE ---
HPI - General General Date of Admission: 04/23/25 HPI Narrative Late entry note: MARTIN CASTELLANOS, is a 29 F who presents to L&D with contractions and to rule out labor Maternal Data Information ANJEL Calculator Estimated Delivery Date Method Current WG Current Estimate 04/29/25 LMP (Certain) 40w 1d PFSH [facility] Medical History (Updated 04/30/25 @ 17:[address] Rose Mahmood, DO) depression 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 Vaginal delivery COVID-19 vaccine series completed Home Medications ?Medication ?Instructions ?Recorded ?Last Taken ?Type multivitamin no.47-iron fum 27 1 cap PO DAILY Check with primary 06/14/21 04/25/25 History mg-folate no.1 1 mg-dha 300 mg doctor capsule (PNV-DHA) cholecalciferol (vitamin D3) 125 125 mcg PO QDAY 04/28/24 Unknown History mcg (5,000 unit) capsule magnesium gluconate 30 mg tablet 30 mg PO QDAY 04/28/24 Unknown History sertraline 50 mg tablet (Zoloft) 50 mg PO DAILY #90 tabs 04/28/24 04/25/25 Rx cetirizine 10 mg tablet (Zyrtec) 10 mg PO QDAY PRN 09/19/24 04/25/25 History Allergy/AdvReac Type Severity Reaction Status Date / Time Penicillins Allergy Intermediate Hives Verified 04/20/25 10:43 Family History Mother Hypertension Grandmother Breast cancer Paternal grt Grandmother Grandmother Hypertension Breast cancer, Onset Age: 60 Paternal Surgical History H/O wisdom tooth extraction Social History adopted: No household members: spouse housing: house number of children: 1 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al status: employed 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: [employer] pets and animals: Yes pets and animals: dog(s) history of recent travel: No sexually active: Yes Smoking Status: Never smoker second hand exposure: Yes alcohol intake: current alcohol intake frequency: holidays/special occasions only details: not while substance use type: does not use well-balanced diet: daily or most days caffeine: Yes Type: coffee Number of servings: 1 eating out: rarely or never during the past year weight has: remained stable what type of physical activity do you participate in: other details: [place] frequency: 3-4 times per week duration: 30-45 minutes/day juan alberto/rastafari: [employer] seatbelt use: always do you feel safe at home: Yes additional social history: - Itz History 2 Elective abortions Hx Para 1 Spontaneous abortions Hx # Term Pregnancies Ectopic pregnancies Hx # Pregnancies Multiple births # of living children 1 Past Pregnancies Del. Date Name GA/Weeks Outcome Route Bth Weight Infant Gen Labor Lgth Anesthesia Del Locatn Provider FOB 02/05/22 Michael 41 live - full term 8#3oz Female epidural [facility] Dorothy Mobley Delivery Date: 02/05/22 Last Updated by: Ruthie Costello see problem list for complications, and 41 IOL postdates sm girl michael atony Visit Details Expected Delivery Route/Plan Labor Preferences- CB/BF classes: no labor support person: Itz labor intervention preferences: [] pain management options preferred: epidural cut cord/dad catch: yes : yes PP control planned: [] discussed possible routes of delivery and associated risks: [] special requests: [] Plans Covid status: [] Flu vaccine: declines Tdap vaccine: given Rhogam: NA LARC form signed: declined movement and labor precautions reviewed. Problem list reviewed and updated with the most current plan of care details and appropriate orders placed. Relevant counseling for the gestational age provided. Continue routine care and follow up unless otherwise noted in visit notes/problem list details OB Flowsheet Initial Weight: Not Recorded Date <del>?</del> EGA Weight BP Urine Prot <del>?</del> Glucose FHR FuHt Pres Dilation <del>?</del> Effaced St Visit Note 09/29/24 <del>?</del> 9w 5d 171 lb 4 oz 129/78 <del>?</del> 165 <del>?</del> SM- CRL 3.2 cm cons with LMP 11/05/24 <del>?</del> 15w 0d 179 lb 2 oz 125/85 Negative <del>?</del> Negative 160 <del>?</del> JV- no complaints today. anatomy scan ordered. bedside scan looks great with movement. patient reassured. 12/01/24 <del>?</del> 18w 5d 181 lb 4 oz 137/73 Negative <del>?</del> Negative 150 <del>?</del> Sm- no vb cramping anzered quesitons about hemorrhage pp anatomy scan today 12/31/24 <del>?</del> 23w 0d 192 lb 8 oz 108/74 Negative <del>?</del> Negative 168 <del>?</del> JV- no lof, vaginal bleeding, or dec fm. follow up us was normal. has restless legs. iron and magnesium not helping. 01/26/25 <del>?</del> 26w 5d 197 lb 2 oz 131/76 Negative <del>?</del> Negative 150 <del>?</del> SM- no vb lof good fm no regular ctx. 02/11/25 <del>?</del> 29w 0d 200 lb 2 oz 127/80 Negative <del>?</del> Negative 125 33 <del>?</del> JV- no lof, vaginal bleeding, or dec fm. 02/25/25 <del>?</del> 31w 0d 201 lb 4 oz 131/82 Negative <del>?</del> Negative 135 31 <del>?</del> SM- no vb lof good fm no reguar ctx 03/09/25 <del>?</del> 32w 5d 203 lb 6 oz 119/79 Negative <del>?</del> Negative 155 33 <del>?</del> JV- no lof, vaginal bleeding, or dec fm. no complaints 03/23/25 <del>?</del> 34w 5d 207 lb 1 oz 112/81 Negative <del>?</del> Negative 142 35 <del>?</del> MH-No VB, LOF. Good FM. No concerns 04/06/25 <del>?</del> 36w 5d 206 lb 2 oz 126/81 Negative <del>?</del> Negative 169 36.5 Cephalic 1 <del>?</del> 30 -3 JV- GBS collected, no lof, vaginal bleeding, or dec fm. JV- GBS collected, no lof, vaginal bleeding, or dec fm. wants to consider induction at 40 weeks 04/14/25 <del>?</del> 37w 6d 210 lb 4 oz 135/82 124/82 Negative <del>?</del> Negative 154 37.5 Cephalic 1.5 <del>?</del> 50 -3 JV- GBS neg. no headaches or blurry vision. ankles more swollen today. Has some right side pain that improves with rest. NOT upper quadrant. 04/20/25 <del>?</del> 38w 5d 209 lb 7 oz 145/91 135/92 Negative <del>?</del> Negative 135 40 Cephalic 3 <del>?</del> 70 -2 SM- no vb lof good fm n oreuglar ctx borderline bps to l and d for evaluation ROS Constitutional Constitutional: Reports systems reviewed and no addt'l complaints, except as documented Gastrointestinal Gastrointestinal: Denies bloating, constipation, cramping, diarrhea, nausea or vomiting Genitourinary Genitourinary: Reports other Details: Denies vaginal odor, vaginal bleeding, or vaginal discharge ; Denies difficulty urinating or flank pain Physical Exam HEENT normocephalic Resp normal respiratory effort and normal air movement no CVA tenderness Extremity normal to inspection General Extremity: edema bilateral (trace ) NST FHR Rate Baby A Baseline: 130 Variability:: Moderate Accelerations:: 15 x 15 Decelerations:: None NST Reactive:: Yes FHR Category:: Category I Assessment & Plan (1) False labor: PLAN: Plan nst reactive, no cervical change ok to dc to home Charges/Coding Multi Select Codes Visit Charges Office Visit/Consults: 15205 OV L3 Est 20min Urinary/Genital Urinary/Genital CPT Codes: 64579-71 non-stress test Interp
--- NOTE | 2025-04-23 23:21 | OB.TRI.HP_ITS ---
HPI - General General Date of Admission: 04/23/25 HPI Narrative Late entry note: MARTIN CASTELLANOS, is a 29 F who presents to L&D with contractions and to rule out labor Maternal Data Information ANJEL Calculator Estimated Delivery Date Method Current WG Current Estimate 04/29/25 LMP (Certain) 40w 1d PFSH [facility] Medical History (Updated 04/30/25 @ 17:[address] Rose Mahmood, DO) depression 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 Vaginal delivery COVID-19 vaccine series completed Home Medications ?Medication ?Instructions ?Recorded ?Last Taken ?Type multivitamin no.47-iron fum 27 1 cap PO DAILY Check wi th primary 06/14/21 04/25/25 History mg-folate no.1 1 mg-dha 300 mg doctor capsule (PNV-DHA) cholecalciferol (vitamin D3) 125 125 mcg PO QDAY 04/28 Unknown History mcg (5,000 unit) capsule magnesium gluconate 30 mg tablet 30 mg PO QDAY 4 Unknown History sertraline 50 mg tablet (Zoloft) 50 mg PO DAILY #90 ta bs 04/28/24 04/25/25 Rx cetirizine 10 mg tablet (Zyrtec) 10 mg PO QDAY PRN pre gnancy 09/19/24 04/25/25 History Allergy/AdvReac Type Severity Reaction Status Date / Time Penicillins Allergy Intermediate Hives Verified 04/20/25 10:43 Family History Mother Hypertension Grandmother Breast cancer Paternal grt Grandmother Grandmother Hypertension Breast cancer, Onset Age: 60 Paternal Surgical History H/O wisdom tooth extraction Social History adopted: No household members: spouse housing: house number of children: 1 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al status: employed 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: [employer] pets and animals: Yes pets and animals: dog(s) history of recent travel: No sexually active: Yes Smoking Status: Never smoker second hand exposure: Yes alcohol intake: current alcohol intake frequency: holidays/special occasions only details: not while substance use type: does not use well-balanced diet: daily or most days caffeine: Yes Type: coffee Number of servings: 1 eating out: rarely or never during the past year weight has: remained stable what type of physical activity do you participate in: other details: [place] frequency: 3-4 times per week duration: 30-45 minutes/day juan alberto/pentecostalism: Caodaism seatbelt use: always do you feel safe at home: Yes additional social history: - Itz History 2 Elective abortions Hx Para 1 Spontaneous abortions Hx # Term Pregnancies Ectopic pregnancies Hx # Pregnancies Multiple births # of living children 1 Past Pregnancies Del. Date Name GA/Weeks Outcome Route Bth Weight Gen Labor Lgth Anesthesia Del Locatn Provider FOB 02/05/22 Michael 41 live - full term 8#3oz Female epidu ral [facility] Dorothy Mobley Delivery Date: 02/05/22 Last Updated by: Ruthie Costello see problem list for complications, and 41 IOL postdates sm girl michael atony Visit Details Expected Delivery Route/Plan Labor Preferences- CB/BF classes: no labor support person: Itz labor intervention preferences: [] pain management options preferred: epidural cut cord/dad catch: yes : yes PP control planned: [] discussed possible routes of delivery and associated risks: [] special requests: [] Plans Covid status: [] Flu vaccine: declines Tdap vaccine: given Rhogam: NA LARC form signed: declined movement and labor precautions reviewed. Problem list reviewed and updated with the most current plan of care details and appropriate orders placed. Relevant counseling for the gestational age provided. Continue routine care and follow up unless otherwise noted in visit notes/problem list details OB Flowsheet Initial Weight: Not Recorded Date -?-?-?-?-?-?-?-?-?-?-?-?- EGA Weight BP Urine Prot -?-?-?-?-?-?-?-?-?-?-?-?- Glucose FHR FuHt Pres Dilation -?-?-?-?-?-?-?-?-?-?-?-?- Effaced St Visit Note 09/29/24 -?-?-?-?-?-?-?-?-?-?-?-?- 9w 5d 171 lb 4 oz 129/78 -?-?-?-?-?-?-?-?-?-?-?-?- 165 -?-?-?-?-?-?-?-?-?-?-?-?- SM- CRL 3.2 cm c ons with LMP 11/05/24 -?-?-?-?-?-?-?-?-?-?-?-?- 15w 0d 179 lb 2 oz 125/85 Nega tive -?-?-?-?-?-?-?-?-?-?-?-?- Negative 160 -?-?-?-?-?-?-?-?-?-?-?-?- JV- no complaint s today. anatomy scan ordered. bedside scan looks great with movement. patient reassured. 12/01/24 -?-?-?-?-?-?-?-?-?-?-?-?- 18w 5d 181 lb 4 oz 137/73 Nega tive -?-?-?-?-?-?-?-?-?-?-?-?- Negative 150 -?-?-?-?-?-?-?-?-?-?-?-?- Sm- no vb crampi ng anzered quesitons about hemorrhage pp anatomy scan today 12/31/24 -?-?-?-?-?-?-?-?-?-?-?-?- 23w 0d 192 lb 8 oz 108/74 Nega tive -?-?-?-?-?-?-?-?-?-?-?-?- Negative 168 -?-?-?-?-?-?-?-?-?-?-?-?- JV- no lof, vagi nal bleeding, or dec fm. follow up us was normal. has restless legs. iron and magnesium not helping. 01/26/25 -?-?-?-?-?-?-?-?-?-?-?-?- 26w 5d 197 lb 2 oz 131/76 Nega tive -?-?-?-?-?-?-?-?-?-?-?-?- Negative 150 -?-?-?-?-?-?-?-?-?-?-?-?- SM- no vb lof go od fm no regular ctx. 02/11/25 -?-?-?-?-?-?-?-?-?-?-?-?- 29w 0d 200 lb 2 oz 127/80 Nega tive -?-?-?-?-?-?-?-?-?-?-?-?- Negative 125 33 -?-?-?-?-?-?-?-?-?-?-?-?- JV- no lof, vagi nal bleeding, or dec fm. 02/25/25 -?-?-?-?-?-?-?-?-?-?-?-?- 31w 0d 201 lb 4 oz 131/82 Nega tive -?-?-?-?-?-?-?-?-?-?-?-?- Negative 135 31 -?-?-?-?-?-?-?-?-?-?-?-?- SM- no vb lof go od fm no reguar ctx 03/09/25 -?-?-?-?-?-?-?-?-?-?-?-?- 32w 5d 203 lb 6 oz 119/79 Nega tive -?-?-?-?-?-?-?-?-?-?-?-?- Negative 155 33 -?-?-?-?-?-?-?-?-?-?-?-?- JV- no lof, vagi nal bleeding, or dec fm. no complaints 03/23/25 -?-?-?-?-?-?-?-?-?-?-?-?- 34w 5d 207 lb 1 oz 112/81 Nega tive -?-?-?-?-?-?-?-?-?-?-?-?- Negative 142 35 -?-?-?-?-?-?-?-?-?-?-?-?- MH-No VB, LOF. G ood FM. No concerns 04/06/25 -?-?-?-?-?-?-?-?-?-?-?-?- 36w 5d 206 lb 2 oz 126/81 Nega tive -?-?-?-?-?-?-?-?-?-?-?-?- Negative 169 36.5 Cephalic 1 -?-?-?-?-?-?-?-?-?-?-?-?- 30 -3 JV- GBS co llected, no lof, vaginal bleeding, or dec fm. JV- GBS collected, no lof, v aginal bleeding, or dec fm. wants to consider induction at 40 weeks 04/14/25 -?-?-?-?-?-?-?-?-?-?-?-?- 37w 6d 210 lb 4 oz 135/82 124/82 Negative -?-?-?-?-?-?-?-?-?-?-?-?- Negative 154 37.5 Cephalic 1 .5 -?-?-?-?-?-?-?-?-?-?-?-?- 50 -3 JV- GBS ne g. no headaches or blurry vision. ankles more swollen today. Has some right side pain that improves with rest. NOT upper quadrant. 04/20/25 -?-?-?-?-?-?-?-?-?-?-?-?- 38w 5d 209 lb 7 oz 145/91 135/92 Negative -?-?-?-?-?-?-?-?-?-?-?-?- Negative 135 40 Cephalic 3 -?-?-?-?-?-?-?-?-?-?-?-?- 70 -2 SM- no vb lof good fm n oreuglar ctx borderline bps to l and d for evaluation ROS Constitutional Constitutional: Reports systems reviewed and no addt'l complaints, except as documented Gastrointestinal Gastrointestinal: Denies bloating, constipation, cramping, diarrhea, nausea or vomiting Genitourinary Genitourinary: Reports other Details: Denies vaginal odor, vaginal bleeding, or vaginal discharge ; Denies difficulty urinating or flank pain Physical Exam HEENT normocephalic Resp normal respiratory effort and normal air movement no CVA tenderness Extremity normal to inspection General Extremity: edema bilateral (trace ) NST FHR Rate Baby A Baseline: 130 Variability:: Moderate Accelerations:: 15 x 15 Decelerations:: None NST Reactive:: Yes FHR Category:: Category I Assessment & Plan (1) False labor: PLAN: Plan nst reactive, no cervical change ok to dc to home Charges/Coding Multi Select Codes Visit Charges Office Visit/Consults: 51203 OV L3 Est 20min Urinary/Genital Urinary/Genital CPT Codes: 70693-65 non-stress test Interp
[2025-04-24 00:52] VITALS: BP 107/57; PULSE 95; RESP 16; TEMP 37.1
[2025-04-24 02:37] VITALS: BP 104/55; PULSE 96; RESP 16; TEMP 36.6
[2025-04-24 04:05] VITALS: BP 112/56; PULSE 85; RESP 15; TEMP 36.5
--- OUTSIDE RECORDS SUMMARY | 2025-04-24 17:54 | XMS RPT_ITS | CCD ---
Author Organization [facility] CliniSymd Care Team Providers Care Portfolio Accountant Name Role Phone Sowmya Baldwin E Unavailable Ele Osorio Unavailable Unavailable Unavailable Unavailable Rosalino Ramírez Unavailable Unavailable Unavailable Unavailable Denny Sowmya Unavailable Rosalino Ramírez LPN Unavailable Unavailable Ele Osorio Unavailable Unavailable Unavailable Unavailable Ciesa CITY ENGINEER, CITY ENGINEER-C [facility] Primary Care Provider Ciesa CITY ENGINEER, CITY ENGINEER-C [facility] Referring Provider [phone] Dr. Rose Mahmood Attending Provider [phone] Dr. Dorothy Lee Attending Provider [phone] Ciesa CITY ENGINEER, CITY ENGINEER-C [facility] Primary Care Provider Ciesa CITY ENGINEER, CITY ENGINEER-C [facility] Referring Provider [phone] Dr. Rose Mahmood Attending Provider [phone] Cidavida Sowmya Unavailable Percy WHEELER, Kiya Unavailable [phone] Percy WHEELER, Kiya Unavailable [phone] Cidavida Sowmya Unavailable Ciesa CITY ENGINEER, CITY ENGINEER-C [facility] Primary Care Provider Ciesa CITY ENGINEER, CITY ENGINEER-C [facility] Referring Provider [phone] Dr. Rose Mahmood Attending Provider [phone] Marie CITY ENGINEER, CITY ENGINEER-C Suzanne Attending Provider [phone] Odalys Farfan Attending Provider Unavailable Dr. Kirk Lemon Attending Provider Percy, CITY ENGINEER-C Kiya Primary Care Provider [phone] Ciesa CITY ENGINEER, CITY ENGINEER-C [facility] Primary Care Provider Ciesa CITY ENGINEER, CITY ENGINEER-C Sowmya Referring Provider [phone] Dr. Dorothy Lee Attending Provider [phone] Percy, CITY ENGINEER-C Kiya Referring Provider [phone] Dr. Dorothy Lee Admit Provider [phone] Dr. Dorothy Lee Other Provider Percy DRAMA CRITIC, Kiya Attending Unavailable Percy DRAMA CRITIC, Kiya Referring Unavailable Percy DRAMA CRITIC, Kiya Consulting Unavailable Slarb POTTERY DECORATION DESIGNER, Lilian Unavailable Unavailable Percy CITY ENGINEER-C, Kiya Primary Care Provider [phone] Percy CITY ENGINEER-C, Kiya Referring Provider Dr. Dorothy Lee MD [...] Neil CNM Referring Provider [phone] Percy CITY ENGINEER-C, Kiya Primary Care Provider [phone] Percy CITY ENGINEER-C, Kiya Referring Provider Dr. Dorothy Lee MD Attending Provider Percy CITY ENGINEER-C, Kiya Primary Care Physician [phone] Dr. Rose Mahmood DO Attending Physician Dr. Dorothy Lee MD Attending Physician Rashaad JOHNSON, Ranjana Attending Physician [phone] Percy CITY ENGINEER-C, Kiya Primary Care Physician [phone] Percy CITY ENGINEER-C, Kiya Referring Provider [phone] Dr. Rose Mahmood DO Attending Physician Percy CITY ENGINEER-C, Kiya Primary Care Physician [phone] Percy CITY ENGINEER-C, Kiya Referring Provider [phone] Jesus URBINA, Dr. De La Cruz Attending Physician Marie CITY ENGINEER-C, Suzanne Attending Physician [phone] Percy, Kiya Referring [...] Referring Unavailable Percy, Kiya Primary Care Unavailable [place] CITY ENGINEER, Suzanne Attending Unavailable Percy, Kiya Referring Unavailable Vande VelRose chow Attending Unavailabl e Percy, Kiya Primary Care Unavailable Percy, Kiya Primary Care Unavailable Dorothy Lee Consulting Unavailable Dorothy Lee Referring Unavailable Dorothy Lee Attending Unavailable Precy, Kiya Primary Care Unavailable Vande Rose Man Referring Unavailabl e Vande VelRose chow Attending Unavailabl e Percy, Kiya Primary Care Unavailable Percy, Kiya Referring Unavailable Dorothy Lee Attending Unavailable Dorothy Lee Referring Unavailable Dorothy Lee Attending Unavailable Percy, Kiya Primary Care Unavailable Vande Rose Man Attending Unavailabl e Percy, Kiya Primary Care Unavailable Percy, Kiya Referring Unavailable [place] CITY ENGINEERSuzanne Referring Unavailable [place] CITY ENGINEER, Suzanne Attending Unavailable Percy, Kiya Primary Care [...] Translations: [Penicillin G Procaine *PENICILLINS*] Drug Allergy [facility] Comprehensive Internal Medicine Work Phone: (17 sources) Penicillins; Translations: [Penicillins] Allergy to substance 2 [facility] Medications Current Medications Medication Drug [...] A DAY December 14, 2021 12:00am Multivit 97-Jljx-Ttnbqy 1-Dha (Pnv-Dha) 27 mg iron-1 mg -300 mg capsule (16 sources) Start: 06-14-2021 Multivit 65-Xidj-Iqnldz 1-Dha (Pnv-Dha) 27 mg iron-1 mg -300 [...] 09-19-2022 Chronic Comment on above: treated by [facility] Dr Abiel Lee, put her on buspar. [...] AST [Catalytic activity/Vol] 20 U/L Normal <=31 [facility] Comment on above: Performed By: #### L 501.1400, L501.0900, L501.4100, L501.4405, L100.0500, L501.1105 ####[facility] [address] [place], [place], [id number] Alanine Aminotransferas (SGP T)on 04-20-2025 ALT [Catalytic activity/Vol] 16 U/L Normal <=34 [facility] Comment on above: Performed By: #### L 501.1400, L501.0900, L501.4100, L501.4405, L100.0500, L501.1105 ####[facility] [address] [place], [address] CBC-Complete Blood Cnt No Di ffon 04-20-2025 Erythrocyte distribution width (RBC) [Ratio] 14.7 % High 11.6-14.6 [facility] Comment on above: Performed By: #### L 501.1400, L501.0900, L501.4100, L501.4405, L100.0500, L501.1105 ####[facility] [address] [place], [address] Hematocrit (Bld) [Volume fraction] 35.0 % Low 37-47 [facility] Comment on above: Performed By: #### L 501.1400, L501.0900, L501.4100, L501.4405, L100.0500, L501.1105 ####[facility] [address] [place], [address] Hemoglobin (Bld) [Mass/Vol] 11.8 g/dL Low 12.0-15.0 [facility] Comment on above: Performed By: #### L 501.1400, L501.0900, L501.4100, L501.4405, L100.0500, L501.1105 ####[facility] [address] [place], [address] MCH (RBC) [Entitic mass] 30.3 pg Normal 27.0-32.0 [facility] Comment on above: Performed By: #### L 501.1400, L501.0900, L501.4100, L501.4405, L100.0500, L501.1105 ####[facility] [address] [place], [address] MCHC (RBC) [Mass/Vol] 33.7 g/dL Normal 32-36 [facility] Comment on above: Performed By: #### L 501.1400, L501.0900, L501.4100, L501.4405, L100.0500, L501.1105 ####[facility] [address] [place], [address] MCV (RBC) [Entitic vol] 89.7 fL Normal 81-99 [facility] Comment on above: Performed By: #### L 501.1400, L501.0900, L501.4100, L501.4405, L100.0500, L501.1105 ####[facility] [address] [place], [address] Platelet mean volume (Bld) [Entitic vol] 10.9 fL Normal 6.2-12.0 [facility] Comment on above: Performed By: #### L 501.1400, L501.0900, L501.4100, L501.4405, L100.0500, L501.1105 ####[facility] [address] [place], [address] Platelets (Bld) [#/Vol] 158 10*3/uL Normal 150-450 [facility] Comment on above: Performed By: #### L 501.1400, L501.0900, L501.4100, L501.4405, L100.0500, L501.1105 ####[facility] [address] [place], [address] RBC (Bld) [#/Vol] 3.90 10*6/uL Low 4.2-5.4 [facility] Comment on above: Performed By: #### L 501.1400, L501.0900, L501.4100, L501.4405, L100.0500, L501.1105 ####[facility] [address] [place], [address] RDW SD 46.9 fl High 35.1-43.9 [facility] Comment on above: Performed By: #### L 501.1400, L501.0900, L501.4100, L501.4405, L100.0500, L501.1105 ####[facility] [address] [place], [address] WBC (Bld) [#/Vol] 8.1 10*3/uL Normal 4.4-11.0 [facility] Comment on above: Performed By: #### L 501.1400, L501.0900, L501.4100, L501.4405, L100.0500, L501.1105 ####[facility] [address] [place], [address] OB Triage Progress Noteon OB Triage Progress Note [facility] Medical Records Department [address] [place] [address] OB Triage Progress Note 04/20/25 1334 MR#: [id number] Acct: [id number] Name: MARTIN CASTELLANOS Rep #: [id number] : 1995 29 From: Dorothy Lee MD PCP: Kiya Greer NP-C Status:REG CLI Y DOS: Location: [place] [address] Progress Notes Date of Service: 04/20/25 Progress Note: Patient presents for triage evaluation secondary to elevated bps in the office FHT: 130 Moderate variability reactive no decelerations category I tracing [place]: no regular Contractions Assessment and plan: elevated [...] (0-200) mg/g CRE Charges/Coding Procedures Urinary/Genital 52xxx-59xxx: 04001-13 non-stress test Interp 04/20/25 1336 Date Dorothy Lee MD Cosigner Signature (if applicable): Date CC: CITY ENGINEERAnilC Kiya Greer; Dr. Dorothy Lee MD Signed Normal [facility] Audiometric Technician Office Visit Reporton 04-20-2025 Audiometric Technician Office Visit Report [facility] [address], [address] [place] [address] OFFICE VISIT Date of Service: 04/20/25 MR#: [id number] Acct: [id number] Name: MARTIN CASTELLANOS LUZ Rep #: [id number] : 1995 Provider: Dr. 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 ??-???-???-???-???-?? (more content not included)... Normal [facility] Protein+Creatinine Ratio,Uri neon 04-20-2025 PROT:CRE RATIO 195 mg/g CRE Normal 0-200 [facility] Comment on above: Performed By: #### L 501.1400, L501.0900, L501.4100, L501.4405, L100.0500, L501.1105 ####[facility] [address] [place], [place], [address] Protein (U) [Mass/Vol] 9.3 mg/dL Normal 0.0-12.0 [facility] Comment on above: Performed By: #### L 501.1400, L501.0900, L501.4100, L501.4405, L100.0500, L501.1105 ####[facility] [address] [place], [address] UR CREAT 47.90 mg/dL Normal 28.00-217.00 [facility] Comment on above: Performed By: #### L 501.1400, L501.0900, L501.4100, L501.4405, L100.0500, L501.1105 ####[facility] [address] [place], [address] Serum Creatinine AND GFRon 1 06-20-2024 Creatinine [Mass/Vol] 0.63 mg/dL Low 0.70-1.20 [facility] Comment on above: Performed By: #### L 501.1400, L501.0900, L501.4100, L501.4405, L100.0500, L501.1105 ####[facility] [address] [place], [address] ECRCL 147.14 ml/min Normal 50-250 [facility] Comment on above: Performed By: #### L 501.1400, L501.0900, L501.4100, L501.4405, L100.0500, L501.1105 ####[facility] [address] [place], [address] GFR/1.73 sq M.predicted among non-blacks MDRD (S/P/Bld) [Vol rate/Area] 123 mL/min/{1.73_m2} Normal >60 [facility] Comment on above: Result Comment: mL/m in/1.73m2 CKD-EPI Creatinine Equation (2020) Performed By: #### L 501.1400, L501.0900, L501.4100, L501.4405, L100.0500, L501.1105 ####[facility] [address] [place], [address] Uric Acidon 04-20-2025 URIC 4.8 mg/dL Normal 2.6-6.0 [facility] Comment on above: Result Comment: The drugs N-Acetylcysteine and Metamizole may falsely depress this assay. Performed By: #### L 501.1400, L501.0900, L501.4100, L501.4405, L100.0500, L501.1105 ####[facility] [address] [place], [address] Audiometric Technician Office Visit Reporton 04-14-2025 Audiometric Technician Office Visit Report [facility] [address], [address] [place] [address] OFFICE VISIT Date of Service: 04/14/25 MR#: [id number] Acct: [id number] Name: MARTIN CASTELLANOS Rep #: [id number] : 1995 Provider: Dr. Rose Wolfe DO Age/Sex: 29/F Location: [facility] Status: Signed Intake Vital Signs 03/23/25 13:40 04/06/25 14:20 04/14/25 08:57 04/14/25 09:24 Height 5 ft 4 in 5 ft 4 in 5 ft 4 in Weight: 210 lb 4 oz BMI 36.1 BP 135/82 H 124/82 H Intake Visit Reasons: 37wk 6d ob Chief Complaint: 37wk OB Technology Intern Required: No Is patient in pain?: No [...] 1 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al status: employed 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: [employer] pets and animals: Yes pets [...] times per week duration: 30-45 minutes/day juan alberto/oriental orthodox: Faith seatbelt use: always do you feel safe [...] live - full term 8#3oz Female epidural [facility] audra Mobley Delivery Date: 02/05/22 Last Updated [...] 129/78 -???- (more content not included)... Normal [facility] Rule out Beta Strep (Grp. B) on 04-08-2025 LUIS Group B Beta Streptococcus is not isolated. Normal [facility] Comment on above: Performed By: #### M [id number] ####[facility] [address] [place], [address] Laboratory - Chemistry and C hemistry - challengeOrdered By: Rose Man on 04-06-2025 Glucose Ql (U) Negative [facility] Laboratory - UrinalysisOrder ed By: Rose Man on 04-06-2025 Protein Ql (U) Negative [facility] Audiometric Technician Office Visit Reporton 04-06-2025 Audiometric Technician Office Visit Report [facility] [address], [address] [place] [address] OFFICE VISIT Date of Service: 04/06/25 MR#: [id number] Acct: [id number] Name: MARTIN CASTELLANOS Rep #: [id number] : 1995 Provider: Dr. Rose Wolfe, Age/Sex: 29/F Location: [facility] Status: Signed Intake Vital Signs 02/11/25 09:41 03/23/25 13:40 04/06/25 14:18 04/06/25 14:20 Height 5 ft 4 in 5 ft 4 in 5 ft 4 in 5 ft 4 in Weight: 207 lb 1 oz 206 lb 2 oz BMI 35.5 35.4 BP 112/81 H 126/81 H Intake Visit Reasons: 36wk 5d ob Technology Intern Required: No Is patient in pain?: No [...] 1 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al status: employed 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: [employer] pets and animals: Yes pets [...] times per week duration: 30-45 minutes/day juan alberto/oriental orthodox: Faith seatbelt use: always do you feel safe [...] live - full term 8#3oz Female epidural [facility] Jesus Mobley Delivery Date: 02/05/22 Last Updated by: Ruthie Costello see problem list for complications, and 41 IOL postdates sm girl michael atony HPI 36wk 5d ob Details: MARTIN CASTELLANOS is a 29 year old who presents for routine OB visit. OB Visit ANEJL Calculator Estimated Delivery Date Method Current WG [...] 171 lb (more content not included)... Normal [facility] Laboratory - Chemistry and C hemistry - challengeOrdered By: Suzanne Salazar on 03-23-2025 Glucose Ql (U) Negative [facility] Laboratory - UrinalysisOrder ed By: Suzanne Salazar on 03-23-2025 Protein Ql (U) Negative [facility] Audiometric Technician Office Visit Reporton 03-23-2025 Audiometric Technician Office Visit Report [facility] [address], [address] [place] [address] OFFICE VISIT Date of Service: 03/23/25 MR#: [id number] Acct: [id number] Name: MARTIN CASTELLANOS Rep #: [id number] : 1995 Provider: LUCINDA rodriguez Age/Sex: 29/F Location: [facility] Status: Signed Intake Vital Signs 02/11/25 09:41 03/09/25 09:27 03/23/25 13:40 Height 5 ft 4 in 5 ft 4 in 5 ft 4 in Weight: 207 lb 1 oz BMI 35.5 BP 112/81 H Intake Visit Reasons: 34wk ob Technology Intern Required: No Is patient in pain?: No [...] 1 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al status: employed 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: [employer] pets and animals: Yes pets [...] times per week duration: 30-45 minutes/day juan alberto/oriental orthodox: Faith seatbelt use: always do you feel safe [...] live - full term 8#3oz Female epidural [facility] audra Mobley Delivery Date: 02/05/22 Last Updated by: Ruthie Costello see problem list for complications, and 41 IOL postdates sm girl michael atony HPI 34wk ob Details: MARITN CASTELLANOS is a 29 year old who [...] ??-???-???-???-???-??? -???- (more content not included)... Normal [facility] Laboratory - Chemistry and C hemistry - challengeOrdered By: Rose Man on 03-09-2025 Glucose Ql (U) Negative [facility] Laboratory - UrinalysisOrder ed By: Rose Man on 03-09-2025 Protein Ql (U) Negative [facility] Audiometric Technician Office Visit Reporton 03-09-2025 Audiometric Technician Office Visit Report [facility] [address], [address] [place] [address] OFFICE VISIT Date of Service: 03/09/25 MR#: [id number] Acct: [id number] Name: MARTIN CASTELLANOS Rep #: [id number] : 1995 Provider: Dr. Rose Wolfe DO Age/Sex: 29/F Location: [facility] Status: Signed Intake Vital Signs 12/31/24 08:38 02/25/25 09:45 03/09/25 09:27 Height 5 ft 4 in 5 ft 4 in 5 ft 4 in Weight: 203 lb 6 oz BMI 34.9 BP 119/79 Intake Visit Reasons: 32 WK OB Chief Complaint: 32wk OB Technology Intern Required: No Is patient in pain?: No [...] 1 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al status: employed 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: [employer] pets and animals: Yes pets [...] times per week duration: 30-45 minutes/day juan alberto/oriental orthodox: Faith seatbelt use: always do you feel safe [...] -???- 165 (more content not included)... Normal [facility] Laboratory - Chemistry and C hemistry - challengeOrdered By: Dorothy Lee on 02-25-2025 Glucose Ql (U) Negative [facility] Laboratory - UrinalysisOrder ed By: Dorothy Lee on 02-25-2025 Protein Ql (U) Negative [facility] Audiometric Technician Office Visit Reporton 02-25-2025 Audiometric Technician Office Visit Report [facility] [address], [address] [place] [address] OFFICE VISIT Date of Service: 02/25/25 MR#: [id number] Acct: [id number] Name: MARTIN CASTELLANOS Rep #: [id number] : 1995 Provider: Dr. Dorothy fields MD Age/Sex: 29/F Location: [facility] Status: Signed Intake Vital Signs 12/31/24 08:38 02/11/25 09:41 02/25/25 09:45 Height 5 ft 4 in 5 ft 4 in 5 ft 4 in Weight: 201 lb 4 oz BMI 34.5 BP 131/82 H Intake Visit Reasons: 30 WK OB Technology Intern Required: No Is patient in pain?: No [...] 1 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al status: employed 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: [employer] pets and animals: Yes pets [...] times per week duration: 30-45 minutes/day juan alberto/oriental orthodox: Faith seatbelt use: always do you feel safe [...] live - full term 8#3oz Female epidural [facility] audra Mobley Delivery Date: 02/05/22 Last Updated [...] 165 -???-???-???- (more content not included)... Normal [facility] Laboratory - Chemistry and C hemistry - challengeOrdered By: Rose Man on 02-11-2025 Glucose Ql (U) Negative [facility] Laboratory - UrinalysisOrder ed By: Rose Man on 02-11-2025 Protein Ql (U) Negative [facility] Audiometric Technician Office Visit Reporton 02-11-2025 Audiometric Technician Office Visit Report [facility] [address], [address] [place] [address] OFFICE VISIT Date of Service: 02/11/25 MR#: [id number] Acct: [id number] Name: MARTIN CASTELLANOS Rep #: [id number] : 1995 Provider: Dr. Rose Wolfe DO Age/Sex: 29/F Location: [facility] Status: Signed Intake Vital Signs 12/01/24 10:16 01/26/25 09:18 02/11/25 09:39 02/11/25 09:41 Height 5 ft 4 in 5 ft 4 in 5 ft 4 in 5 ft 4 in Weight: 200 lb 2 oz BMI 34.3 BP 127/80 H Intake Visit Reasons: 28 wk ob Technology Intern Required: No Is patient in pain?: No [...] 1 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al status: employed 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: [employer] pets and animals: Yes pets [...] times per week duration: 30-45 minutes/day juan alberto/oriental orthodox: Faith seatbelt use: always do you feel safe [...] live - full term 8#3oz Female epidural [facility] audra Mobley Delivery Date: 02/05/22 Last Updated [...] -???-???-???-???-???-? ??-???-???-? (more content not included)... Normal [facility] Absolute lymphocyte countOrd ered By: Rose Man on 01-26-2025 Lymphocytes Auto (Unsp spec) [#/Vol] 1.16 10*3/uL 0.83-4.51 [facility] Absolute neutrophil countOrd ered By: Rose Man on 01-26-2025 Neutrophils (Bld) [#/Vol] 4.8 10*3/uL 2.0-7.7 [facility] Automated lymphocyte count a s percentage of total leukocytesOrdered By: Rose Man on 01-26-2025 Lymphocytes/100 WBC Auto (Unsp spec) 16.6 % Low 19-41 [facility] Basophil percentageOrdered B y: Rose Man on 01-26-2025 Basophils/100 WBC (Bld) 0.6 % 0-1 [facility] CBC W/Diff, Automatedon 01-09 Absolute Lymph 1.16 X10 3/uL Normal 0.83-4.51 [facility] Comment on above: Performed By: #### L 100.0100, L501.0250, L509.8002, L3890.6006 ####[facility] [address] [place], [address] Absolute Neut 4.8 X10 3/uL Normal 2.0-7.7 [facility] Comment on above: Performed By: #### L 100.0100, L501.0250, L509.8002, L3890.6006 ####[facility] [address] [place], [address] Basophils/100 WBC (Bld) 0.6 % Normal 0-1 [facility] Comment on above: Performed By: #### L 100.0100, L501.0250, L509.8002, L3890.6006 ####[facility] [address] [place], [address] Eosinophils/100 WBC (Bld) 2.1 % Normal 0-5 [facility] Comment on above: Performed By: #### L 100.0100, L501.0250, L509.8002, L3890.6006 ####[facility] [address] [place], [address] Erythrocyte distribution width (RBC) [Ratio] 15.3 % High 11.6-14.6 [facility] Comment on above: Performed By: #### L 100.0100, L501.0250, L509.8002, L3890.6006 ####[facility] [address] [place], [address] Hematocrit (Bld) [Volume fraction] 35.4 % Low 37-47 [facility] Comment on above: Performed By: #### L 100.0100, L501.0250, L509.8002, L3890.6006 ####[facility] [address] [place], [address] Hemoglobin (Bld) [Mass/Vol] 11.8 g/dL Low 12.0-15.0 [facility] Comment on above: Performed By: #### L 100.0100, L501.0250, L509.8002, L3890.6006 ####[facility] [address] [place], [address] IG% 4.600 High 0.0-0.9 [facility] Comment on above: Result Comment: IG% - Immature Granulocytes (promyelocytes, myelocytes and metamyelocytes) > 1% indicates that a LEFT SHIFT is Present. Performed By: #### L 100.0100, L501.0250, L509.8002, L3890.6006 ####[facility] [address] [place], [address] Lymphocytes/100 WBC (Bld) 16.6 % Low 19-41 [facility] Comment on above: Performed By: #### L 100.0100, L501.0250, L509.8002, L3890.6006 ####[facility] [address] [place], [address] MCH (RBC) [Entitic mass] 31.3 pg Normal 27.0-32.0 [facility] Comment on above: Performed By: #### L 100.0100, L501.0250, L509.8002, L3890.6006 ####[facility] [address] [place], [address] MCHC (RBC) [Mass/Vol] 33.3 g/dL Normal 32-36 [facility] Comment on above: Performed By: #### L 100.0100, L501.0250, L509.8002, L3890.6006 ####[facility] [address] [place], [address] MCV (RBC) [Entitic vol] 93.9 fL Normal 81-99 [facility] Comment on above: Performed By: #### L 100.0100, L501.0250, L509.8002, L3890.6006 ####[facility] [address] [place], [address] Monocytes/100 WBC (Bld) 7.2 % Normal 0-10 [facility] Comment on above: Performed By: #### L 100.0100, L501.0250, L509.8002, L3890.6006 ####[facility] [address] [place], [address] Neutrophils/100 WBC (Bld) 68.9 % Normal 47-70 [facility] Comment on above: Performed By: #### L 100.0100, L501.0250, L509.8002, L3890.6006 ####[facility] [address] [place], [address] Nucleated RBC (Bld) [#/Vol] 0 10*3/uL Normal 0-5 [facility] Comment on above: Performed By: #### L 100.0100, L501.0250, L509.8002, L3890.6006 ####[facility] [address] [place], [address] Platelet mean volume (Bld) [Entitic vol] 10.5 fL Normal 6.2-12.0 [facility] Comment on above: Performed By: #### L 100.0100, L501.0250, L509.8002, L3890.6006 ####[facility] [address] [place], [address] Platelets (Bld) [#/Vol] 182 10*3/uL Normal 150-450 [facility] Comment on above: Performed By: #### L 100.0100, L501.0250, L509.8002, L3890.6006 ####[facility] [address] [place], [address] RBC (Bld) [#/Vol] 3.77 10*6/uL Low 4.2-5.4 [facility] Comment on above: Performed By: #### L 100.0100, L501.0250, L509.8002, L3890.6006 ####[facility] [address] [place], [address] RDW SD 53.1 fl High 35.1-43.9 [facility] Comment on above: Performed By: #### L 100.0100, L501.0250, L509.8002, L3890.6006 ####[facility] [address] [place], [address] WBC (Bld) [#/Vol] 7.0 10*3/uL Normal 4.4-11.0 [facility] Comment on above: Performed By: #### L 100.0100, L501.0250, L509.8002, L3890.6006 ####[facility] [address] [place], [address] Eosinophil percentageOrdered By: Rose Man on 01-26-2025 Eosinophils/100 WBC (Bld) 2.1 % 0-5 [facility] Erythrocyte distribution wid th ratioOrdered By: Rose Man on 01-26-2025 Erythrocyte distribution width (RBC) [Ratio] 15.3 % High 11.6-14.6 [facility] Erythrocyte distribution wid th standard deviationOrdered By: Rose Man on 01-26-2025 Erythrocyte distribution width (RBC) [Ratio] 53.1 fl High 35.1-43.9 [facility] Glucose Challenge Gest 1H 50 aleyda 01-26-2025 GLU GEST 50g 1H 112 mg/dL Normal 70-140 [facility] Comment on above: Performed By: #### L 100.0100, L501.0250, L509.8002, L3890.6006 ####[facility] [address] [place], [place], [id number] Glucose measurement at 2 larry rs post-dose gestational glucose tolerance testOrdered By: Rose Man on 01-26-2025 Glucose [Mass/Vol] 112 mg/dL 70-140 [facility] HIVon 01-26-2025 HIV Non-Reactive Normal Nonreactive [facility] Comment on above: Result Comment: Non- Reactive Reactive Repeatedly reactive samples must be confirmed according to CDC recommended confirmatory algorithms. The subresults for either HIVAG or AHIV can be used as an aid in the selection of the confirmation algorithm for reactive samples. Send out specimens with Reactive results to [facility] for confirmation. Order the HIV antibody detection and differentiation: lc#[id number] Performed By: #### L 100.0100, L501.0250, L509.8002, L3890.6006 ####[facility] [address] [place], [address] Hematocrit Auto (Bld) [Volum e fraction]Ordered By: Rose Man on 01-26-2025 Hematocrit (Bld) [Volume fraction] 35.4 % Low 37-47 [facility] Hemoglobin measurementOrdere d By: Rose Man on 01-26-2025 Hemoglobin (Bld) [Mass/Vol] 11.8 g/dL Low 12.0-15.0 [facility] Immature granulocytes/100 WB C Auto (Bld)Ordered By: Rose Man on 01-26-2025 Immature granulocytes/100 WBC (Bld) 4.600 % High 0.0-0.9 [facility] Comment on above: IG% - Immature Granu locytes (promyelocytes, myelocytes and metamyelocytes) > 1% indicates that a LEFT SHIFT is Present. Laboratory - Chemistry and C hemistry - challengeOrdered By: Dorothy Lee on 01-26-2025 Glucose Ql (U) Negative [facility] Laboratory - UrinalysisOrder ed By: Dorothy Lee on 01-26-2025 Protein Ql (U) Negative [facility] MCV (mean corpuscular volume ) determinationOrdered By: Rose Man on 01-26-2025 MCV (RBC) [Entitic vol] 93.9 fL 81-99 [facility] Mean corpuscular hemoglobin (MCH) determinationOrdered By: Rose Man on 01-26-2025 MCH (RBC) [Entitic mass] 31.3 pg 27.0-32.0 [facility] Mean corpuscular hemoglobin concentration (MCHC) determinationOrdered By: Rose Man on 01-26-2025 MCHC (RBC) [Mass/Vol] 33.3 g/dL 32-36 [facility] Mean platelet volume determi nationOrdered By: Rose Man on 01-26-2025 Platelet mean volume (Bld) [Entitic vol] 10.5 fL 6.2-12.0 [facility] Monocyte percentageOrdered B y: Rose Man on 01-26-2025 Monocytes/100 WBC (Bld) 7.2 % 0-10 [facility] Neutrophil percentageOrdered By: Rose Man on 01-26-2025 Neutrophils/100 WBC (Bld) 68.9 % 47-70 [facility] No Panel InformationOrdered By: Rose Man on 01-26-2025 HIV (1&2) Antibody Non-Reactive Nonreactive [facility] Comment on above: Non-ReactiveReactive Repeatedly reactive samples must be confirmed according to CDC recommended confirmatory algorithms. The subresults for either HIVAG or AHIV can be used as an aid in the selection of the confirmation algorithm for reactive samples.Send out specimens with Reactive results to [facility] for confirmation.Order the HIV antibody detection and differentiation: #[id number] Nucleated red blood cell per centageOrdered By: Rose Man on 01-26-2025 Nucleated RBC/100 WBC (Bld) [Ratio] 0 % 0-5 [facility] Audiometric Technician Office Visit Reporton 01-26-2025 Audiometric Technician Office Visit Report [facility] [address], [address] [place] [address] OFFICE VISIT Date of Service: 01/26/25 MR#: [id number] Acct: [id number] Name: MARTIN CASTELLANOS Rep #: [id number] : 1995 Provider: Dr. Dorothy fields MD Age/Sex: 29/F Location: [facility] [place] Status: Signed Intake Vital Signs 12/01/24 10:16 12/31/24 08:38 01/26/25 09:18 Height 5 ft 4 in 5 ft 4 in 5 ft 4 in Weight: 197 lb 2 oz BMI 33.8 BP 131/76 H Intake Visit Reasons: 26 wk ob/glucose Technology Intern Required: No Is patient in pain?: No [...] 1 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al status: employed 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: [employer] pets and animals: Yes pets [...] times per week duration: 30-45 minutes/day juan alberto/oriental orthodox: Faith seatbelt use: always do you feel safe [...] live - full term 8#3oz Female epidural [facility] audra Jesus Mobley Delivery Date: 02/05/22 Last [...] -???- SM- (more content not included)... Normal [facility] Platelet countOrdered By: Reji Man on 01-26-2025 Platelets (Bld) [#/Vol] 182 10*3/uL 150-450 [facility] RBC Auto (Bld) [#/Vol]Ordere d By: Rose Man on 01-26-2025 RBC (Bld) [#/Vol] 3.77 10*6/uL Low 4.2-5.4 [facility] Syphilis Antibodieson 2024 Syphilis Abs Non-Reactive Normal Nonreactive [facility] Comment on above: Performed By: #### L 100.0100, L501.0250, L509.8002, L3890.6006 ####[facility] [address] [place], [place], [address] White blood cell (WBC) count Ordered By: Rose Man on 01-26-2025 WBC (Bld) [#/Vol] 7.0 10*3/uL 4.4-11.0 [facility] Laboratory - Chemistry and C hemistry - challengeOrdered By: Rose Man on 12-31-2024 Glucose Ql (U) Negative [facility] Laboratory - UrinalysisOrder ed By: Rose Man on 12-31-2024 Protein Ql (U) Negative [facility] Audiometric Technician Office Visit Reporton 12-31-2024 Audiometric Technician Office Visit Report [address], [address] [place] [address] OFFICE VISIT Date of Service: 12/31/24 MR#: [id number] Acct: [id number] Name: MARTIN CASTELLANOS Rep #: [id number] : 1995 Provider: Dr. Rose Wolfe DO Age/Sex: 29/F [place] [facility] [place] Status: Signed Intake Vital Signs 11/05/24 08:44 12/01/24 10:16 12/31/24 08:37 12/31/24 08:38 Height 5 ft 4 in 5 ft 4 in 5 ft 4 in 5 ft 4 in Weight: 192 lb 8 oz BMI 33.0 BP 108/74 Intake Visit Reasons: 22 wk ob Technology Intern Required: No Is patient in pain?: No [...] 1 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al status: employed 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: [employer] pets and animals: Yes pets [...] times per week duration: 30-45 minutes/day juan alberto/oriental orthodox: Faith seatbelt use: always do you feel safe [...] live - full term 8#3oz Female epidural [facility] audra Jesus Mobley Delivery Date: 02/05/22 Last [...] -???-???-???-???-???-? ??-???-???-??? (more content not included)... Normal [facility] Laboratory - Chemistry and C hemistry - challengeOrdered By: Dorothy Lee on 12-01-2024 Glucose Ql (U) Negative [facility] Laboratory - UrinalysisOrder ed By: Dorothy Lee on 12-01-2024 Protein Ql (U) Negative [facility] Audiometric Technician Office Visit Reporton 12-01-2024 Audiometric Technician Office Visit Report [facility] [address], [address] [place] [address] OFFICE VISIT Date of Service: 12/01/24 MR#: [id number] Acct: [id number] Name: EMANUELMARTIN LUZ Rep #: [id number] : 1995 Provider: Dr. Dorothy fields MD Age/Sex: 29/F Location: [facility] [place] Status: Signed Intake Vital Signs 09/29/24 10:27 11/05/24 08:44 12/01/24 10:16 Height 5 ft 4 in 5 ft 4 in 5 ft 4 in Weight: 181 lb 4 oz BMI 31.1 BP 137/73 H Intake Visit Reasons: 18 wk ob Technology Intern Required: No Is patient in pain?: No [...] 1 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al status: employed 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: [employer] pets and animals: Yes pets [...] times per week duration: 30-45 minutes/day juan alberto/oriental orthodox: Faith seatbelt use: always do you feel safe [...] live - full term 8#3oz Female epidural [facility] audra Jesus Mobley Delivery Date: 02/05/22 Last [...] 165 - (more content not included)... Normal [facility] Absolute lymphocyte countOrd ered By: Dorothy Nuneskaylynn on 11-05-2024 Lymphocytes Auto (Unsp spec) [#/Vol] 1.48 10*3/uL 0.83-4.51 [facility] Absolute neutrophil countOrd ered By: Dorothy Nuneskaylynn on 11-05-2024 Neutrophils (Bld) [#/Vol] 5.7 10*3/uL 2.0-7.7 [facility] Automated lymphocyte count a s percentage of total leukocytesOrdered By: Dorothy Jesus on 11-05-2024 Lymphocytes/100 WBC Auto (Unsp spec) 18.6 % Low 19-41 [facility] Basophil percentageOrdered B y: Dorothy Nuneskaylynn on 11-05-2024 Basophils/100 WBC (Bld) 0.3 % 0-1 [facility] CBC W/Diff, Automatedon 10-10 Absolute Lymph 1.48 X10 3/uL Normal 0.83-4.51 [facility] Comment on above: Performed By: #### L 100.0100, L3890.6006, L509.8002, BTS, L509.4006, L3890.6301, L3890.6102 ####[facility] [address] [place], [address] Absolute Neut 5.7 X10 3/uL Normal 2.0-7.7 [facility] Comment on above: Performed By: #### L 100.0100, L3890.6006, L509.8002, BTS, L509.4006, L3890.6301, L3890.6102 ####[facility] [address] [place], [address] Basophils/100 WBC (Bld) 0.3 % Normal 0-1 [facility] Comment on above: Performed By: #### L 100.0100, L3890.6006, L509.8002, BTS, L509.4006, L3890.6301, L3890.6102 ####[facility] [address] [place], [address] Eosinophils/100 WBC (Bld) 2.8 % Normal 0-5 [facility] Comment on above: Performed By: #### L 100.0100, L3890.6006, L509.8002, BTS, L509.4006, L3890.6301, L3890.6102 ####[facility] [address] [place], [address] Erythrocyte distribution width (RBC) [Ratio] 14.2 % Normal 11.6-14.6 [facility] Comment on above: Performed By: #### L 100.0100, L3890.6006, L509.8002, BTS, L509.4006, L3890.6301, L3890.6102 ####[facility] [address] [place], [address] Hematocrit (Bld) [Volume fraction] 38.3 % Normal 37-47 [facility] Comment on above: Performed By: #### L 100.0100, L3890.6006, L509.8002, BTS, L509.4006, L3890.6301, L3890.6102 ####[facility] [address] [place], [address] Hemoglobin (Bld) [Mass/Vol] 12.8 g/dL Normal 12.0-15.0 [facility] Comment on above: Performed By: #### L 100.0100, L3890.6006, L509.8002, BTS, L509.4006, L3890.6301, L3890.6102 ####[facility] [address] [place], [address] IG% 1.100 High 0.0-0.9 [facility] Comment on above: Result Comment: IG% - Immature Granulocytes (promyelocytes, myelocytes and metamyelocytes) > 1% indicates that a LEFT SHIFT is Present. Performed By: #### L 100.0100, L3890.6006, L509.8002, BTS, L509.4006, L3890.6301, L3890.6102 ####[facility] [address] [place], [address] Lymphocytes/100 WBC (Bld) 18.6 % Low 19-41 [facility] Comment on above: Performed By: #### L 100.0100, L3890.6006, L509.8002, BTS, L509.4006, L3890.6301, L3890.6102 ####[facility] [address] [place], [address] MCH (RBC) [Entitic mass] 30.3 pg Normal 27.0-32.0 [facility] Comment on above: Performed By: #### L 100.0100, L3890.6006, L509.8002, BTS, L509.4006, L3890.6301, L3890.6102 ####[facility] [address] [place], [address] MCHC (RBC) [Mass/Vol] 33.4 g/dL Normal 32-36 [facility] Comment on above: Performed By: #### L 100.0100, L3890.6006, L509.8002, BTS, L509.4006, L3890.6301, L3890.6102 ####[facility] [address] [place], [address] MCV (RBC) [Entitic vol] 90.8 fL Normal 81-99 [facility] Comment on above: Performed By: #### L 100.0100, L3890.6006, L509.8002, BTS, L509.4006, L3890.6301, L3890.6102 ####[facility] [address] [place], [address] Monocytes/100 WBC (Bld) 5.8 % Normal 0-10 [facility] Comment on above: Performed By: #### L 100.0100, L3890.6006, L509.8002, BTS, L509.4006, L3890.6301, L3890.6102 ####[facility] [address] [place], [address] Neutrophils/100 WBC (Bld) 71.4 % High 47-70 [facility] Comment on above: Performed By: #### L 100.0100, L3890.6006, L509.8002, BTS, L509.4006, L3890.6301, L3890.6102 ####[facility] [address] [place], [address] Nucleated RBC (Bld) [#/Vol] 0 10*3/uL Normal 0-5 [facility] Comment on above: Performed By: #### L 100.0100, L3890.6006, L509.8002, BTS, L509.4006, L3890.6301, L3890.6102 ####[facility] [address] [place], [address] Platelet mean volume (Bld) [Entitic vol] 10.1 fL Normal 6.2-12.0 [facility] Comment on above: Performed By: #### L 100.0100, L3890.6006, L509.8002, BTS, L509.4006, L3890.6301, L3890.6102 ####[facility] [address] [place], [address] Platelets (Bld) [#/Vol] 206 10*3/uL Normal 150-450 [facility] Comment on above: Performed By: #### L 100.0100, L3890.6006, L509.8002, BTS, L509.4006, L3890.6301, L3890.6102 ####[facility] [address] [place], [address] RBC (Bld) [#/Vol] 4.22 10*6/uL Normal 4.2-5.4 [facility] Comment on above: Performed By: #### L 100.0100, L3890.6006, L509.8002, BTS, L509.4006, L3890.6301, L3890.6102 ####[facility] [address] [place], [address] RDW SD 47.1 fl High 35.1-43.9 [facility] Comment on above: Performed By: #### L 100.0100, L3890.6006, L509.8002, BTS, L509.4006, L3890.6301, L3890.6102 ####[facility] [address] [place], [address] WBC (Bld) [#/Vol] 8.0 10*3/uL Normal 4.4-11.0 [facility] Comment on above: Performed By: #### L 100.0100, L3890.6006, L509.8002, BTS, L509.4006, L3890.6301, L3890.6102 ####[facility] [address] [place], [address] Eosinophil percentageOrdered By: Dorothy Lee on 11-05-2024 Eosinophils/100 WBC (Bld) 2.8 % 0-5 [facility] Erythrocyte distribution wid th ratioOrdered By: Dorothy Lee on 11-05-2024 Erythrocyte distribution width (RBC) [Ratio] 14.2 % 11.6-14.6 [facility] Erythrocyte distribution wid th standard deviationOrdered By: Dorothy Lee on 11-05-2024 Erythrocyte distribution width (RBC) [Ratio] 47.1 fl High 35.1-43.9 [facility] HIVon 11-05-2024 HIV Non-Reactive Normal Nonreactive [facility] Comment on above: Result Comment: Non- Reactive Reactive Repeatedly reactive samples must be confirmed according to CDC recommended confirmatory algorithms. The subresults for either HIVAG or AHIV can be used as an aid in the selection of the confirmation algorithm for reactive samples. Send out specimens with Reactive results to [facility] for confirmation. Order the HIV antibody detection and differentiation: #[id number] Performed By: #### L 100.0100, L3890.6006, L509.8002, BTS, L509.4006, L3890.6301, L3890.6102 ####[facility] [address] [place], [address] Hematocrit Auto (Bld) [Volum e fraction]Ordered By: Dorothy Lee on 11-05-2024 Hematocrit (Bld) [Volume fraction] 38.3 % 37-47 [facility] Hemoglobin measurementOrdere d By: Dorothy Lee on 11-05-2024 Hemoglobin (Bld) [Mass/Vol] 12.8 g/dL 12.0-15.0 [facility] Hepatitis C Antibodyon 11-05 Hepatitis C Ab Non-Reactive Normal Nonreactive [facility] Comment on above: Result Comment: Reac tive: Presumptive evidence of antibodies to HCV. Follow CDC recommendations for supplemental testing. Non-Reactive: Antibodies to HCV were not detected; does not exclude the possibility of exposure to HCV Reactive Results are presumptive evidence of antibodies to HCV. Follow CDC recommendations for supplemental testing. Order confirmation testing: HCV Quant by PCR testing - HCVPCR #[id number] Non Reactive: < 0.8 Equivocal: >/= 0.8 to < 1.0 Reactive: >/= 1.0 The [facility] requires that a reactive/equivocal HCV antibody result be sent out for confirmation. HCV Quant by PCR testing. Performed By: #### L 100.0100, L3890.6006, L509.8002, BTS, L509.4006, L3890.6301, L3890.6102 ####[facility] [address] [place], [place], [address] Immature granulocytes/100 WB C Auto (Bld)Ordered By: Dorothy Lee on 11-05-2024 Immature granulocytes/100 WBC (Bld) 1.100 % High 0.0-0.9 [facility] Comment on above: IG% - Immature Granu locytes (promyelocytes, myelocytes and metamyelocytes) > 1% indicates that a LEFT SHIFT is Present. L3890.6102on 11-05-2024 HEP B Surf Ag Non-Reactive Normal Nonreactive [facility] Comment on above: Result Comment: Reac tive: Presumptive evidence of HBV. Repeatedly reactive samples must be confirmed using a neutralization test ([employer] HBsAg Confirmatory Test) Non-Reactive: HBsAg not detected; does not exclude the possibility of exposure to HBV Performed By: #### L 100.0100, L3890.6006, L509.8002, BTS, L509.4006, L3890.6301, L3890.6102 ####[facility] [address] [place], [place], [address] L509.4006on 11-05-2024 Rubella IgG REAC Normal Nonreactive [facility] Comment on above: Result Comment: Anti body Result: Interpretation Non-Reactive: Non-Immune Reactive: Immune The following results were obtained with the [employer] Rubella IgG assay. Results from assays of other manufacturers cannot be used interchangeably. Performed By: #### L 100.0100, L3890.6006, L509.8002, BTS, L509.4006, L3890.6301, L3890.6102 ####[facility] [address] [place], [address] Laboratory - Chemistry and C hemistry - challengeOrdered By: Rose Man on 11-05-2024 Glucose Ql (U) Negative [facility] Laboratory - Microbiology an d Antimicrobial susceptibilityOrdered By: Dorothy Lee on 11-05-2024 HBV surface Ag Ql (S) Non-Reactive Nonreactive [facility] Comment on above: Reactive: Presumptiv e evidence of HBV. Repeatedly reactive samples must be confirmed using a neutralization test ([employer] HBsAg Confirmatory Test)Non-Reactive: HBsAg not detected; does not exclude the possibility of exposure to HBV Laboratory - UrinalysisOrder ed By: Rose Man on 11-05-2024 Protein Ql (U) Negative [facility] MCV (mean corpuscular volume ) determinationOrdered By: Dorothy Lee on 11-05-2024 MCV (RBC) [Entitic vol] 90.8 fL 81-99 [facility] Mean corpuscular hemoglobin (MCH) determinationOrdered By: Dorothy Lee on 11-05-2024 MCH (RBC) [Entitic mass] 30.3 pg 27.0-32.0 [facility] Mean corpuscular hemoglobin concentration (MCHC) determinationOrdered By: Dorothy Lee on 11-05-2024 MCHC (RBC) [Mass/Vol] 33.4 g/dL 32-36 [facility] Mean platelet volume determi nationOrdered By: Dorothy Lee on 11-05-2024 Platelet mean volume (Bld) [Entitic vol] 10.1 fL 6.2-12.0 [facility] Monocyte percentageOrdered B y: Dorothy Lee on 11-05-2024 Monocytes/100 WBC (Bld) 5.8 % 0-10 [facility] Neutrophil percentageOrdered By: Dorothy Lee on 11-05-2024 Neutrophils/100 WBC (Bld) 71.4 % High 47-70 [facility] No Panel InformationOrdered By: Dorothy Lee on 11-05-2024 HIV (1&2) Antibody Non-Reactive Nonreactive [facility] Comment on above: Non-ReactiveReactive Repeatedly reactive samples must be confirmed according to CDC recommended confirmatory algorithms. The subresults for either HIVAG or AHIV can be used as an aid in the selection of the confirmation algorithm for reactive samples.Send out specimens with Reactive results to [facility] for confirmation.Order the HIV antibody detection and differentiation: #[id number] Nucleated red blood cell per centageOrdered By: Dorothy Lee on 11-05-2024 Nucleated RBC/100 WBC (Bld) [Ratio] 0 % 0-5 [facility] System Audiometric Technician Office Visit Reporton 11-05-2024 Audiometric Technician Office Visit Report [facility] [address], [address] [place] [address] OFFICE VISIT Date of Service: 11/05/24 MR#: [id number] Acct: [id number] Name: MARTIN CASTELLANOS Rep #: [id number] : 1995 Provider: Dr. Rose Wolfe DO Age/Sex: 28/F Location: [facility] Status: Signed Intake Vital Signs 08/27/24 13:56 09/29/24 10:27 11/05/24 08:41 11/05/24 08:44 Height 5 ft 4 in 5 ft 4 in 5 ft 4 in 5 ft 4 in Weight: 179 lb 2 oz BMI 30.7 BP 125/85 H Intake Visit Reasons: 14wk OB Technology Intern Required: No Is patient in pain?: No [...] 1 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al status: employed 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: [employer] pets and animals: Yes pets [...] times per week duration: 30-45 minutes/day juan alberto/oriental orthodox: Faith seatbelt use: always do you feel safe [...] live - full term 8#3oz Female epidural [facility] audra Mobley Delivery Date: 02/05/22 Last Updated [...] -???-???-???-???-???-? ??-???-???-??? (more content not included)... Normal [facility] Platelet countOrdered By: Karena Lee on 11-05-2024 Platelets (Bld) [#/Vol] 206 10*3/uL 150-450 [facility] RBC Auto (Bld) [#/Vol]Ordere d By: Dorothy Lee on 11-05-2024 RBC (Bld) [#/Vol] 4.22 10*6/uL 4.2-5.4 [facility] Syphilis Antibodieson 2024 Syphilis Abs Non-Reactive Normal Nonreactive [facility] Comment on above: Performed By: #### L 100.0100, L3890.6006, L509.8002, BTS, L509.4006, L3890.6301, L3890.6102 ####[facility] [address] [place], [place], [id number] Type AND Screenon 11-05-2024 ABO and Rh group Nom (Bld) Blood group A Rh(D) positive Normal [facility] Comment on above: Order Comment: PN Performed By: #### L 100.0100, L3890.6006, L509.8002, BTS, L509.4006, L3890.6301, L3890.6102 ####[facility] [address] [place], [place], [id number] White blood cell (WBC) count Ordered By: Dorothy Lee on 11-05-2024 WBC (Bld) [#/Vol] 8.0 10*3/uL 4.4-11.0 [facility] Chlamydia/GC ZULEMA aptimaon CHLAMY,NUC ACID Negative Normal Negative [facility] Comment on above: Performed By: #### M 100.2200, L7000.1800 #### [facility] Laboratory [address] [place], [address] GC BY NUC ACID Negative Normal Negative [facility] Comment on above: Result Comment: Perf ormed at: =G - [facility] [address] [id number] Gun Stock Checker: Shy Zelaya MD, Phone: [phone] Performed By: #### M 100.2200, L7000.1800 #### [facility] [address] [place], [address] Urine Cultureon 10-01-2024 [facility] Below infection leve l. Mixed Gram Positive Organisms [place] Count 1000-10,000 [facility]IX[facility] Mixed contaminants. Submit a new specimen if indicated. Normal [facility] Comment on above: Performed By: #### M 100.2200, L7000.1800 #### [facility] [address] [place], [address] C. trachomatis rRNA ZULEMA+prob e Ql (Unsp spec)Ordered By: Dorothy Lee on 09-29-2024 Chlamydia DNA (ZULEMA) Negative Negative [facility] Chlamydia trachomatis rRNA d etection by probe and target amplification methodOrdered By: Dorothy Lee on 09-29-2024 C. trachomatis rRNA ZULEMA+probe Ql (Unsp spec) Negative Negative [facility] Neisseria gonorrhoeae nuclei c acid detection by amplified probe techniqueOrdered By: Dorothy Lee on 09-29-2024 N. gonorrhoeae DNA ZULEMA+probe Ql (Unsp spec) Negative Negative [facility] Comment on above: Performed at: =G - [facility] [address] [id number] Director: Shy Zelaya MD, Phone: [phone] Audiometric Technician Office Visit Reporton 09-29-2024 Audiometric Technician Office Visit Report [facility]'s [address], [address] [place] [address] OFFICE VISIT Date of Service: 09/29/24 MR#: [id number] Acct: [id number] Name: MARTIN CASTELLANOS Rep #: [id number] : 1995 Provider: Dr. Dorothy fields MD Age/Sex: 28/F Location: [facility] Status: Signed Intake Vital Signs 04/28/24 11:18 08/27/24 13:56 09/29/24 10:27 Height 5 ft 4 in 5 ft 4 in 5 ft 4 in Weight: 171 lb 4 oz BMI 29.4 BP 129/78 H Intake Visit Reasons: New OB, LMP 07/23, ANJEL 04/29 Technology Intern Required: No Is patient in pain?: No [...] No 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al status: employed 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: [employer] pets and animals: Yes pets [...] times per week duration: 30-45 minutes/day juan alberto/oriental orthodox: Faith seatbelt use: always do you feel safe [...] live - full term 8#3oz Female epidural [facility] Jesus Mobley Delivery Date: 02/05/22 Last Updated by: Ruthie Costello see problem list for complications, and 41 IOL postdates sm girl michael martha [facility] New OB, LMP 07/23, ANJEL 04/29 Details: [...] Visit Note (more content not included)... Normal [facility] Urine cultureOrdered By: Pelon Lee on 09-29-2024 Bacteria identified Cx Nom (U) Positive Abnormal [facility] Hemoglobin A1Con 07-22-2024 Glucose [Mass/Vol] 103 mg/dL Normal [facility] Comment on above: Result Comment: The ADA and AACC recommend providing the estimated average glucose result to permit better patient understanding of their HBA1c result. Performed at [facility], [address] [place] [address] . HbA1c (Bld) [Mass fraction] 5.2 % Normal 4.0-6.0 [facility] Iron Binding Capon 5 % Fe Saturation 36 % Normal 20-55 [facility] Iron [Mass/Vol] 108 ug/dL Normal 37-145 [facility] Total Fe Binding Cap 303 ug/dL Normal 250-450 [facility] [place] Fe Bind Cap 195 ug/dL Normal 112-347 [facility] Comment on above: Result Comment: Perf ormed at [facility], [address] [place] [address] . Vitamin D 25 OHon 07-22-2024 Vitamin D 25 [place] 28.3 ng/mL Low 30.0-100.0 [facility] Comment on above: Result Comment: Reference Range: Vitamin D status Range Deficiency <20 ng/mL Mild Deficiency 20-30 ng/mL Sufficiency 30-100 ng/mL Toxicity >100 ng/mL Performed at [facility], [address] [place] [address] . CBC With Platelet and Differ entialon 07-21-2024 Basophils (Bld) [#/Vol] 0.0 10*3/uL Normal 0.0-0.2 [facility] Comment on above: Performed By: #### C BCWD #### [facility] [address] [place] [address] Basophils/100 WBC (Bld) 0.4 % Normal [facility] Comment on above: Performed By: #### C BCWD #### [facility] [address] [place] [address] Eosinophils (Bld) [#/Vol] 0.1 10*3/uL Normal 0.0-0.7 [facility] Comment on above: Performed By: #### C BCWD #### [facility] [address] [place] [address] Eosinophils/100 WBC (Bld) 1.6 % Normal [facility] Comment on above: Performed By: #### C BCWD #### [facility] [address] [place] [address] Erythrocyte distribution width (RBC) [Ratio] 12.8 % Normal 11.5-14.5 [facility] Comment on above: Performed By: #### C BCWD #### [facility] [address] [place] [address] Hematocrit (Bld) [Volume fraction] 42.8 % Normal 37.0-47.0 [facility] Comment on above: Performed By: #### C BCWD #### [facility] [address] [place] [address] Hemoglobin (Bld) [Mass/Vol] 14.1 g/dL Normal 12.0-16.0 [facility] Comment on above: Performed By: #### C BCWD #### [facility] [address] [place] [address] Lymphocytes (Bld) [#/Vol] 1.9 10*3/uL Normal 1.0-4.8 [facility] Comment on above: Performed By: #### C BCWD #### [facility] [address] [place] [address] Lymphocytes/100 WBC (Bld) 25.4 % Normal [facility] Comment on above: Performed By: #### C BCWD #### [facility] [address] [place] [address] MCH (RBC) [Entitic mass] 29.6 pg Normal 27.0-31.3 [facility] Comment on above: Performed By: #### C BCWD #### [facility] [address] [place] [address] MCHC 32.9 % Low 33.0-37.0 [facility] Comment on above: Performed By: #### C BCWD #### [facility] [address] [place] [address] MCV (RBC) [Entitic vol] 89.9 fL Normal 79.4-94.8 [facility] Comment on above: Performed By: #### C BCWD #### [facility] [address] [place] [address] Monocytes (Bld) [#/Vol] 0.4 10*3/uL Normal 0.2-0.8 [facility] Comment on above: Performed By: #### C BCWD #### [facility] [address] [place] [address] Monocytes/100 WBC (Bld) 5.6 % Normal [facility] Comment on above: Performed By: #### C BCWD #### [facility] [address] [place] [address] Neutrophils (Bld) [#/Vol] 4.9 10*3/uL Normal 1.4-6.5 [facility] Comment on above: Performed By: #### C BCWD #### [facility] [address] [place] [address] Neutrophils/100 WBC (Bld) 66.1 % Normal [facility] Comment on above: Performed By: #### C BCWD #### [facility] [address] [place] [address] Platelets (Bld) [#/Vol] 234 10*3/uL Normal 130-400 [facility] Comment on above: Performed By: #### C BCWD #### [facility] [address] [place] [address] RBC (Bld) [#/Vol] 4.76 10*6/uL Normal 4.20-5.40 [facility] Comment on above: Performed By: #### C BCWD #### [facility] [address] [place] [address] WBC (Bld) [#/Vol] 7.4 10*3/uL Normal 4.8-10.8 [facility] Comment on above: Performed By: #### C BCWD #### [facility] [address] [place] [address] Comprehensive Metabolic Pane j carlos 07-21-2024 Albumin [Mass/Vol] 4.4 g/dL Normal 3.5-4.6 [facility] Comment on above: Performed By: #### C MP #### [facility] [address] [place] [address] ALP [Catalytic activity/Vol] 66 U/L Normal 40-130 [facility] Comment on above: Performed By: #### C MP #### [facility] [address] [place] [address] ALT [Catalytic activity/Vol] 31 U/L Normal 0-33 [facility] Comment on above: Performed By: #### C MP #### [facility] [address] [place] [address] Anion gap [Moles/Vol] 12 mmol/L Normal 9-15 [facility] Comment on above: Performed By: #### C MP #### [facility] [address] [place] [address] AST [Catalytic activity/Vol] 21 U/L Normal 0-35 [facility] Comment on above: Performed By: #### C MP #### [facility] [address] [place] [address] Bilirubin [Mass/Vol] 0.3 mg/dL Normal 0.2-0.7 [facility] Comment on above: Performed By: #### C MP #### [facility] [address] [place] [address] Calcium [Mass/Vol] 9.2 mg/dL Normal 8.5-9.9 [facility] Comment on above: Performed By: #### C MP #### [facility] [address] [place] [address] Chloride [Moles/Vol] 101 mmol/L Normal 95-107 [facility] Comment on above: Performed By: #### C MP #### [facility] [address] [place] [address] CO2 [Moles/Vol] 25 mmol/L Normal 20-31 [facility] Comment on above: Performed By: #### C MP #### [facility] [address] [place] [address] Creatinine [Mass/Vol] 0.74 mg/dL Normal 0.50-0.90 [facility] Comment on above: Performed By: #### C MP #### [facility] [address] [place] [address] GFR >90.0 Normal >60 [facility] Comment on above: Result Comment: [facility] at[facility] [...] secretion. Performed By: #### C MP #### [facility] [address] [place] [address] Globulin (S) [Mass/Vol] 3.4 g/dL Normal 2.3-3.5 [facility] Comment on above: Performed By: #### C MP #### [facility] [address] [place] [address] Glucose [Mass/Vol] 76 mg/dL Normal 70-99 [facility] Comment on above: Performed By: #### C MP #### [facility] [address] [place] [address] Potassium [Moles/Vol] 4.0 mmol/L Normal 3.4-4.9 [facility] Comment on above: Performed By: #### C MP #### [facility] [address] [place] [address] Protein [Mass/Vol] 7.8 g/dL Normal 6.3-8.0 [facility] Comment on above: Performed By: #### C MP #### [facility] [address] [place] [address] Sodium [Moles/Vol] 138 mmol/L Normal 135-144 [facility] Comment on above: Performed By: #### C MP #### [facility] [address] [place] [address] Urea nitrogen [Mass/Vol] 8 mg/dL Normal 6-20 [facility] Comment on above: Performed By: #### C MP #### [facility] [address] [place] [address] Lipid Panel Fastingon 2024 Cholesterol [Mass/Vol] 213 mg/dL Critically high 0-199 [facility] Comment on above: Result Comment: ATP III Cholesterol Classification is Borderline High. Performed By: #### L IPDF #### [facility] [address] [place] [address] HDL Cholesterol Fasting 64 mg/dL Critically high 40-59 [facility] Comment on above: Result Comment: ATP III [...] CHD Performed By: #### L IPDF #### [facility] [address] [facility] [place] [address] LDL Cholesterol (Calculated) Fasting 137 mg/dL Critically high 0-129 [facility] Comment on above: Result Comment: ATT III Classification is Borderline High. Performed By: #### L IPDF #### [facility] [address] [place] [address] Triglycerides Fasting 60 mg/dL Normal 0-150 [facility] Comment on above: Result Comment: ATP III Triglycerides Classification is Normal. Performed By: #### L IPDF #### [facility] [address] [place] [address] TSH w/Reflexon 07-21-2024 TSH w/Reflex 2.260 uIU/mL Normal 0.440-3.86 [facility] Comment on above: Result Comment: Free T4 will automatically reflex with a TSH result of <0.270 or >4.200 Performed By: #### T SHR #### [facility] [address] [facility] [place] [address] PAP I-G w/rfx hrHPV-Aptimaon 05-05-2024 ADEQ Comment Normal . [facility] Comment on above: Order Comment: Speci men Comment: [id number] Specimen Comment: Source.............Cervix Specimen Comment: LMP / Prev Treat...[id number] Specimen Comment: No. of containers..01 ThinPrep Vial Result Comment: Sati sfactory for evaluation. Endocervical and/or squamous metaplastic cells (endocervical component) are present. Performed By: #### L 7400.0353 #### [facility] [address] [place], [place], [id number] COMM . Normal . [facility] Comment on above: Order Comment: Speci men Comment: [id number] Specimen Comment: Source.............Cervix Specimen Comment: LMP / Prev Treat...[id number] Specimen Comment: No. of containers..01 ThinPrep Vial Performed By: #### L 7400.0353 #### [facility] [address] [place], [place], [id number] COMMENT Comment Normal . [facility] Comment on above: Order Comment: Speci men Comment: [id number] Specimen Comment: Source.............Cervix Specimen Comment: LMP / Prev Treat...[id number] Specimen Comment: No. of containers..01 ThinPrep Vial Result Comment: This liquid based ThinPrep(R) pap test was screened with the use of an image guided system. Performed By: #### L 7400.0353 #### [facility] [address] [place], [place], [address] DIAG Comment Normal . [facility] Comment on above: Order Comment: Speci men Comment: [id number] Specimen Comment: Source.............Cervix Specimen Comment: LMP / Prev Treat...[id number] Specimen Comment: No. of containers..01 ThinPrep Vial Result Comment: NEGA TIVE FOR INTRAEPITHELIAL LESION OR MALIGNANCY. Performed By: #### L 7400.0353 #### [facility] [address] [place], [address] HPV RFLX Comment Normal . [facility] Comment on above: Order Comment: Speci men Comment: [id number] Specimen Comment: Source.............Cervix Specimen Comment: LMP / Prev Treat...[id number] Specimen Comment: No. of containers..01 ThinPrep Vial Result Comment: The HPV DNA reflex criteria were not met with this specimen result therefore, no HPV testing was performed. Performed at: [address] [id number] Gun Stock Checker: Shy Zelaya MD, Phone: [phone] Performed By: #### L 7400.0353 #### [facility] [address] [place], [address] PAPSMR Comment Normal . [facility] Comment on above: Order Comment: Speci men Comment: [id number] Specimen Comment: Source.............Cervix Specimen Comment: LMP / Prev Treat...[id number] Specimen Comment: No. of containers..01 ThinPrep Vial Result Comment: The Pap smear is a screening test designed to aid in the detection of premalignant and malignant conditions of the uterine cervix. It is not a diagnostic procedure and should not be used as the sole means of detecting cervical cancer. Both false-positive and false-negative reports do occur. Performed By: #### L 7400.0353 #### [facility] [address] [place], [address] PERFORM Comment Normal . [facility] Comment on above: Order Comment: Speci men Comment: [id number] Specimen Comment: Source.............Cervix Specimen Comment: LMP / Prev Treat...[id number] Specimen Comment: No. of containers..01 ThinPrep Vial Result Comment: Pura Marinelli, Livestock Farmer (ASCP) Performed By: #### L 7400.0353 #### [facility] [address] [place], [address] Audiometric Technician Office Visit Reporton 04-28-2024 Audiometric Technician Office Visit Report [facility]'s [address], [address] [place] [address] OFFICE VISIT Date of Service: 04/28/24 MR#: [id number] Acct: [id number] Name: MARTIN CASTELLANOS Rep #: [id number] : 1995 Provider: LUCINDA rodriguez Age/Sex: 28/F Location: [facility] Status: Signed Intake Vital Signs 04/13/23 10:59 04/28/24 11:14 04/28/24 11:18 Height 5 ft 4 in 5 ft 4 in 5 ft 4 in Weight: 159 lb 6 oz BMI 27.3 BP 118/76 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 Denies concerns. Moving to [place] soon. Needs refill zoloft and altavera. Last [...] oriented to person and oriented to place [facility] Head: normal to inspection Neck Neck: [...] - Vagina (more content not included)... Normal [facility] Absolute lymphocyte counton 02-04-2022 Lymphocytes Auto (Unsp spec) [#/Vol] 1.29 10*3/uL 0.83-4.51 [facility] Work Phone: Basophil percentageon 2021 Basophils/100 WBC (Bld) 0.4 % 0-1 [facility] Work Phone: Eosinophils/100 WBC (Bld) 1.5 % 0-5 [facility] Work Phone: Neutrophils (Bld) [#/Vol] 5.0 10*3/uL 2.0-7.7 [facility] Work Phone: Neutrophils/100 WBC (Bld) 70.1 % 47-70 [facility] Work Phone: WBC (Bld) [#/Vol] 7.2 10*3/uL 4.4-11.0 [facility] Work Phone: Blood erythrocytes count (nu mber/volume)on 02-04-2022 RBC (Bld) [#/Vol] 4.09 10*6/uL 4.2-5.4 [facility] Work Phone: Blood hemoglobin measurement (mass/volume)on 02-04-2022 Hemoglobin (Bld) [Mass/Vol] 11.4 g/dL 12.0-15.0 [facility] Work Phone: Blood lymphocytes/100 leukoc yteson 02-04-2022 Lymphocytes/100 WBC (Bld) 18.0 % 19-41 [facility] Work Phone: Blood monocytes/100 leukocyt eson 02-04-2022 Monocytes/100 WBC (Bld) 8.7 % 0-10 [facility] Work Phone: Blood platelet mean volumeon 02-04-2022 Platelet mean volume (Bld) [Entitic vol] 10.9 fL 6.2-12.0 [facility] Work Phone: Determination of erythrocyte mean corpuscular volume (MCV)on 02-04-2022 MCV (RBC) [Entitic vol] 87.3 fL 81-99 [facility] Work Phone: Hematocrit Auto (Bld) [Volum e fraction]on 02-04-2022 Hematocrit (Bld) [Volume fraction] 35.7 % 37-47 [facility] Work Phone: Laboratory - Hematology and Cell countson 02-04-2022 Anisocytosis Ql (Bld) 1+ [facility] Work Phone: Erythrocyte distribution width (RBC) [Entitic vol] 63.8 fL 35.1-43.9 [facility] Work Phone: Erythrocyte distribution width (RBC) [Ratio] 20.4 % 11.6-14.6 [facility] Work Phone: Immature granulocytes/100 WBC (Bld) 1.300 % 0.0-0.9 [facility] Work Phone: Comment on above: IG% - Immature Granu locytes (promyelocytes, myelocytes and metamyelocytes) > 1% indicates that a LEFT SHIFT is Present. MCH (RBC) [Entitic mass] 27.9 pg 27.0-32.0 [facility] Work Phone: Nucleated RBC/100 WBC (Bld) [Ratio] 0 % 0-5 [facility] Work Phone: MCHC Auto (RBC) [Mass/Vol]on 02-04-2022 MCHC (RBC) [Mass/Vol] 31.9 g/dL 32-36 [facility] Work Phone: Platelets bldon 02-04-2022 Platelets (Bld) [#/Vol] 152 10*3/uL 150-450 [facility] Work Phone: Laboratory - Chemistry and C hemistry - challengeon 01-27-2022 Glucose Ql (U) Negative [facility] Work Phone: Laboratory - Urinalysison Protein Ql (U) Negative [facility] Work Phone: Laboratory - Chemistry and C hemistry - challengeon 01-17-2022 Glucose Ql (U) Negative [facility] Work Phone: Laboratory - Urinalysison Protein Ql (U) Negative [facility] Work Phone: Laboratory - Chemistry and C hemistry - challengeon 01-11-2022 Glucose Ql (U) Negative [facility] Work Phone: Laboratory - Urinalysison Protein Ql (U) Negative [facility] Work Phone: Laboratory - Chemistry and C hemistry - challengeon 12-20-2021 Glucose Ql (U) Negative [facility] Work Phone: Laboratory - Urinalysison Protein Ql (U) Negative [facility] Work Phone: Absolute lymphocyte counton 12-14-2021 Lymphocytes Auto (Unsp spec) [#/Vol] 1.41 10*3/uL 0.83-4.51 [facility] Work Phone: Basophil percentageon 2021 Basophil percentage 0 SEEN /hpf 0-5 [facility] Work Phone: Basophils/100 WBC (Bld) 0.3 % 0-1 [facility] Work Phone: Bilirubin [Mass/Vol] 0.20 mg/dL 0.20-1.00 [facility] Work Phone: Comment on above: For patients on eltr ombopag therapy, use of Dimension [place] TBIL is not recommended. Chloride [Moles/Vol] 108 mmol/L 98-107 [facility] Work Phone: Eosinophils/100 WBC (Bld) 0.5 % 0-5 [facility] Work Phone: Glucose [Mass/Vol] 81 mg/dL 74-106 [facility] Work Phone: Neutrophils (Bld) [#/Vol] 7.0 10*3/uL 2.0-7.7 [facility] Work Phone: Neutrophils/100 WBC (Bld) 75.7 % 47-70 [facility] Work Phone: Potassium [Moles/Vol] 3.7 mmol/L 3.5-5.1 [facility] Work Phone: Protein [Mass/Vol] 6.9 g/dL 6.4-8.2 [facility] Work Phone: Sodium [Moles/Vol] 138 mmol/L 136-145 [facility] Work Phone: WBC (Bld) [#/Vol] 9.2 10*3/uL 4.4-11.0 [facility] Work Phone: Bilirubin Test strip Ql (U)o n 12-14-2021 Bilirubin Ql (U) Negative Negative [facility] Work Phone: Blood erythrocytes count (nu mber/volume)on 12-14-2021 RBC (Bld) [#/Vol] 3.70 10*6/uL 4.2-5.4 [facility] Work Phone: Blood hemoglobin measurement (mass/volume)on 12-14-2021 Hemoglobin (Bld) [Mass/Vol] 10.5 g/dL 12.0-15.0 [facility] Work Phone: Blood lymphocytes/100 leukoc yteson 12-14-2021 Lymphocytes/100 WBC (Bld) 15.3 % 19-41 [facility] Work Phone: Blood monocytes/100 leukocyt eson 12-14-2021 Monocytes/100 WBC (Bld) 6.1 % 0-10 [facility] Work Phone: Blood platelet mean volumeon 12-14-2021 Platelet mean volume (Bld) [Entitic vol] 10.2 fL 6.2-12.0 [facility] Work Phone: Determination of erythrocyte mean corpuscular volume (MCV)on 12-14-2021 MCV (RBC) [Entitic vol] 87.3 fL 81-99 [facility] Work Phone: Hematocrit Auto (Bld) [Volum e fraction]on 12-14-2021 Hematocrit (Bld) [Volume fraction] 32.3 % 37-47 [facility] Work Phone: Ketones Test strip Ql (U)on 12-14-2021 Ketones Ql (U) 50 mg/dl Negative [facility] Work Phone: Laboratory - Chemistry and C hemistry - challengeon 12-14-2021 ALP [Catalytic activity/Vol] 69 U/L 45-117 [facility] Work Phone: ALT [Catalytic activity/Vol] 38 U/L 13-56 [facility] Work Phone: CO2 [Moles/Vol] 24.0 mmol/L 21.0-32.0 [facility] Work Phone: Globulin (S) [Mass/Vol] 4.0 g/dL 2.2-4.2 [facility] Work Phone: Urea nitrogen/Creatinine [Mass ratio] 14.2 mg/mg 10-20 [facility] Work Phone: Laboratory - Hematology and Cell countson 12-14-2021 Erythrocyte distribution width (RBC) [Entitic vol] 41.1 fL 35.1-43.9 [facility] Work Phone: Erythrocyte distribution width (RBC) [Ratio] 13.1 % 11.6-14.6 [facility] Work Phone: Immature granulocytes/100 WBC (Bld) 2.100 % 0.0-0.9 [facility] Work Phone: Comment on above: IG% - Immature Granu locytes (promyelocytes, myelocytes and metamyelocytes) > 1% indicates that a LEFT SHIFT is Present. MCH (RBC) [Entitic mass] 28.4 pg 27.0-32.0 [facility] Work Phone: Nucleated RBC/100 WBC (Bld) [Ratio] 0 % 0-5 [facility] Work Phone: MCHC Auto (RBC) [Mass/Vol]on 12-14-2021 MCHC (RBC) [Mass/Vol] 32.5 g/dL 32-36 [facility] Work Phone: Mucus LM Ql (Urine sed)on Mucus Ql (Urine sed) 0 SEEN /hpf [facility] Work Phone: Nitrite Test strip Ql (U)on 12-14-2021 Nitrite Ql (U) Negative Negative [facility] Work Phone: No Panel Informationon 12-14 Estimated Creatinine Clearance Calc 116.85 ml/min [facility] Work Phone: Estimated GFR (MDRD) Amer 146 mL/min >60 [facility] Work Phone: Comment on above: GFR Calc Estimated GFR (MDRD) Non-Af Amer 121 mL/min >60 [facility] Work Phone: Comment on above: Non- GFR Calc Thyroid Stimulating Hormone (TSH) 2.74 uIU/mL 0.358-3.74 [facility] Work Phone: Platelets bldon 12-14-2021 Platelets (Bld) [#/Vol] 189 10*3/uL 150-450 [facility] Work Phone: Protein Test strip Ql (U)on 12-14-2021 Protein Ql (U) Negative Negative [facility] Work Phone: Serum or plasma albumin tommy urement (mass/volume)on 12-14-2021 Albumin [Mass/Vol] 2.9 g/dL 3.2-5.0 [facility] Work Phone: Serum or plasma albumin/glob ulin mass ratioon 12-14-2021 Albumin/Globulin [Mass ratio] 0.7 {ratio} 0.9-2.4 [facility] Work Phone: Serum or plasma calcium tommy urement (mass/volume)on 12-14-2021 Calcium [Mass/Vol] 9.0 mg/dL 8.5-10.1 [facility] Work Phone: Serum or plasma creatinine m easurement (mass/volume)on 12-14-2021 Creatinine [Mass/Vol] 0.63 mg/dL 0.55-1.02 [facility] Work Phone: Comment on above: The validity of the calculated GFR & GFRAA in patients over 70 years has not been determined. Clinical correlation is essential. Serum or plasma urea nitroge n measurement (mass/volume)on 12-14-2021 Urea nitrogen [Mass/Vol] 9 mg/dL 7-18 [facility] Work Phone: Squamous epithelial cells de tection in urine sediment by light microscopyon 12-14-2021 Epithelial cells.squamous LM Ql (Urine sed) 0 SEEN /hpf 5-10 [facility] Work Phone: Thin prep Papanicolaou smear with manual screeningon 12-14-2021 Thin prep Papanicolaou smear with manual screening 29 U/L 15-37 [facility] Work Phone: Thin prep Papanicolaou smear with manual screening 6 5-15 [facility] Work Phone: Urine blood detectionon 07-0 RBC Ql (U) Negative Negative [facility] Work Phone: RBC Ql (U) 0 SEEN /hpf 0-5 [facility] Work Phone: Urine clarityon 12-14-2021 Clarity (U) Clear Clear [facility] Work Phone: Urine color determinationon 12-14-2021 Color (U) Yellow Yellow [facility] Work Phone: Urine glucose detectionon Glucose Ql (U) Normal mg/dl Normal [facility] Work Phone: Urine leukocyte esterase det ection by dipstickon 12-14-2021 Leukocyte esterase Test strip Ql (U) Negative Negative [facility] Work Phone: Urine pHon 12-14-2021 pH (U) 6.5 [pH] 5.0 - 8.0 [facility] Work Phone: Urine sediment bacteria coun t by microscopy (number/high power field)on 12-14-2021 Bacteria LM.HPF (Urine sed) [#/Area] 0 /[HPF] None Seen [facility] Work Phone: Urine specific gravity measu rementon 12-14-2021 Specific gravity (U) [Rel density] 1.010 1.002-1.030 [facility] Work Phone: Urobilinogen Auto test strip Ql (U)on 12-14-2021 Urobilinogen Ql (U) Normal mg/dl Normal [facility] Work Phone: Laboratory - Chemistry and C hemistry - challengeon 12-08-2021 Glucose Ql (U) Negative [facility] Work Phone: Laboratory - Urinalysison Protein Ql (U) Negative [facility] Work Phone: Laboratory - Chemistry and C hemistry - challengeon 11-25-2021 Glucose Ql (U) Negative [facility] Work Phone: Laboratory - Urinalysison Protein Ql (U) Negative [facility] Work Phone: Laboratory - Chemistry and C hemistry - challengeon 11-08-2021 Glucose Ql (U) Negative [facility] Work Phone: Laboratory - Urinalysison Protein Ql (U) Negative [facility] Work Phone: Absolute lymphocyte counton 10-26-2021 Lymphocytes Auto (Unsp spec) [#/Vol] 1.42 10*3/uL 0.83-4.51 [facility] Work Phone: Basophil percentageon 2021 Basophils/100 WBC (Bld) 0.7 % 0-1 [facility] Work Phone: Eosinophils/100 WBC (Bld) 1.9 % 0-5 [facility] Work Phone: Neutrophils (Bld) [#/Vol] 5.0 10*3/uL 2.0-7.7 [facility] Work Phone: Neutrophils/100 WBC (Bld) 66.6 % 47-70 [facility] Work Phone: WBC (Bld) [#/Vol] 7.6 10*3/uL 4.4-11.0 [facility] Work Phone: Blood erythrocytes count (nu mber/volume)on 10-26-2021 RBC (Bld) [#/Vol] 3.73 10*6/uL 4.2-5.4 [facility] Work Phone: Blood hemoglobin measurement (mass/volume)on 10-26-2021 Hemoglobin (Bld) [Mass/Vol] 11.4 g/dL 12.0-15.0 [facility] Work Phone: Blood lymphocytes/100 leukoc yteson 10-26-2021 Lymphocytes/100 WBC (Bld) 18.8 % 19-41 [facility] Work Phone: Blood monocytes/100 leukocyt eson 10-26-2021 Monocytes/100 WBC (Bld) 8.2 % 0-10 [facility] Work Phone: Blood platelet mean volumeon 10-26-2021 Platelet mean volume (Bld) [Entitic vol] 9.5 fL 6.2-12.0 [facility] Work Phone: Determination of erythrocyte mean corpuscular volume (MCV)on 10-26-2021 MCV (RBC) [Entitic vol] 93.8 fL 81-99 [facility] Work Phone: Gestational diabetes screen 1-hour screen with 50g oral glucose loadon 10-26-2021 Glucose 1 Hr post 50 g glucose PO [Mass/Vol] 96 mg/dL 70-140 [facility] Work Phone: Hematocrit Auto (Bld) [Volum e fraction]on 10-26-2021 Hematocrit (Bld) [Volume fraction] 35.0 % 37-47 [facility] Work Phone: Laboratory - Chemistry and C hemistry - challengeon 10-26-2021 Glucose Ql (U) Negative [facility] Work Phone: Laboratory - Hematology and Cell countson 10-26-2021 Erythrocyte distribution width (RBC) [Entitic vol] 44.0 fL 35.1-43.9 [facility] Work Phone: Erythrocyte distribution width (RBC) [Ratio] 12.7 % 11.6-14.6 [facility] Work Phone: Immature granulocytes/100 WBC (Bld) 3.800 % 0.0-0.9 [facility] Work Phone: Comment on above: IG% - Immature Granu locytes (promyelocytes, myelocytes and metamyelocytes) > 1% indicates that a LEFT SHIFT is Present. MCH (RBC) [Entitic mass] 30.6 pg 27.0-32.0 [facility] Work Phone: Nucleated RBC/100 WBC (Bld) [Ratio] 0 % 0-5 [facility] Work Phone: Laboratory - Urinalysison Protein Ql (U) Negative [facility] Work Phone: MCHC Auto (RBC) [Mass/Vol]on 10-26-2021 MCHC (RBC) [Mass/Vol] 32.6 g/dL 32-36 [facility] Work Phone: Platelets bldon 10-26-2021 Platelets (Bld) [#/Vol] 211 10*3/uL 150-450 [facility] Work Phone: Laboratory - Chemistry and C hemistry - challengeon 09-23-2021 Glucose Ql (U) Negative [facility] Work Phone: Laboratory - Urinalysison Protein Ql (U) Negative [facility] Work Phone: Laboratory - Chemistry and C hemistry - challengeon 08-23-2021 Glucose Ql (U) Negative [facility] Work Phone: Laboratory - Urinalysison Protein Ql (U) Negative [facility] Work Phone: Laboratory - Chemistry and C hemistry - challengeon 07-26-2021 Glucose Ql (U) Negative [facility] Work Phone: Laboratory - Urinalysison Protein Ql (U) Negative [facility] Work Phone: Absolute lymphocyte counton 06-30-2021 Lymphocytes Auto (Unsp spec) [#/Vol] 1.37 10*3/uL 0.83-4.51 [facility] Work Phone: Basophil percentageon 2021 Basophils/100 WBC (Bld) 0.4 % 0-1 [facility] Work Phone: Eosinophils/100 WBC (Bld) 0.5 % 0-5 [facility] Work Phone: Neutrophils (Bld) [#/Vol] 5.9 10*3/uL 2.0-7.7 [facility] Work Phone: Neutrophils/100 WBC (Bld) 74.2 % 47-70 [facility] Work Phone: WBC (Bld) [#/Vol] 8.0 10*3/uL 4.4-11.0 [facility] Work Phone: Blood erythrocytes count (nu mber/volume)on 06-30-2021 RBC (Bld) [#/Vol] 4.25 10*6/uL 4.2-5.4 [facility] Work [facility]: Blood hemoglobin measurement (mass/volume)on 06-30-2021 Hemoglobin (Bld) [Mass/Vol] 12.8 g/dL 12.0-15.0 [facility] Work Phone: Blood lymphocytes/100 leukoc yteson 06-30-2021 Lymphocytes/100 WBC (Bld) 17.2 % 19-41 [facility] Work Phone: Blood monocytes/100 leukocyt eson 06-30-2021 Monocytes/100 WBC (Bld) 7.2 % 0-10 [facility] Work Phone: Blood platelet mean volumeon 06-30-2021 Platelet mean volume (Bld) [Entitic vol] 9.8 fL 6.2-12.0 [facility] Work Phone: Chlamydia trachomatis rRNA d etection by probe and target amplification methodon 06-30-2021 C. trachomatis rRNA ZULEMA+probe Ql (Unsp spec) Negative Negative [facility] Work Phone: Culture, urineon 06-30-2021 Bacteria identified Cx Nom (U) Culture exhibits no growth. [facility] Work Phone: Determination of erythrocyte mean corpuscular volume (MCV)on 06-30-2021 MCV (RBC) [Entitic vol] 89.4 fL 81-99 [facility] Work Phone: HIV 1 and HIV-2 antibody ass ay with HIV-1 p24 antigen detectionon 06-30-2021 HIV 1+2 Ab+HIV1 p24 Ag IA Ql Non-Reactive Nonreactive [facility] Work Phone: Hematocrit Auto (Bld) [Volum e fraction]on 06-30-2021 Hematocrit (Bld) [Volume fraction] 38.0 % 37-47 [facility] Work Phone: Laboratory - Drug toxicology on 06-30-2021 Amphetamines Ql (U) Negative [facility] Work Phone: Benzodiazepines Ql (U) Negative [facility] Work Phone: Cannabinoids Screen Ql (U) Negative [facility] Work Phone: Cocaine Ql (U) Negative [facility] Work Phone: Opiates Ql (U) Negative [facility] Work Phone: Laboratory - Hematology and Cell countson 06-30-2021 Erythrocyte distribution width (RBC) [Entitic vol] 42.3 fL 35.1-43.9 [facility] Work Phone: Erythrocyte distribution width (RBC) [Ratio] 12.8 % 11.6-14.6 [facility] Work Phone: Immature granulocytes/100 WBC (Bld) 0.500 % 0.0-0.9 [facility] Work Phone: Comment on above: IG% - Immature Granu locytes (promyelocytes, myelocytes and metamyelocytes) > 1% indicates that a LEFT SHIFT is Present. MCH (RBC) [Entitic mass] 30.1 pg 27.0-32.0 [facility] Work Phone: Nucleated RBC/100 WBC (Bld) [Ratio] 0 % 0-5 [facility] Work Phone: Laboratory - Microbiology an d Antimicrobial susceptibilityon 06-30-2021 N. gonorrhoeae DNA ZULEMA+probe Ql (Unsp spec) Negative Negative [facility] Work Phone: Comment on above: Performed at: =[facility] [address] [id number] Director: Shy Zelaya MD, Phone: [phone] MCHC Auto (RBC) [Mass/Vol]on 06-30-2021 MCHC (RBC) [Mass/Vol] 33.7 g/dL 32-36 [facility] Work Phone: No Panel Informationon 06-30 Urine Barbiturates Screen Negative [facility] Work Phone: Urine Drug Screen Comment [facility] Work Phone: Comment on above: CONFIRMATORY TESTING [...] USE TESTMNEMONIC: [facility] Urine Methadone Screen Negative [facility] Work Phone: Urine Methamphetamine-MDMA Screen Negative [facility] Work Phone: Hepatitis B Surface Antigen Non-Reactive Nonreactive [facility] Work Phone: Hepatitis C Antibody Non-Reactive Nonreactive [facility] Work Phone: Comment on above: Non Reactive: < 0.8 Equivocal: >/= 0.8 to < 1.0 Reactive: >/= 1.0The CDC recommends that a reactive/equivocal HCV antibody result be followed up by the HCV Nucleic Acid Amplificationtest (844549) Rubella IgG Antibody Reactive Nonreactive [facility] Work Phone: Comment on above: Antibody Results Int erpretation of Immune Status Non Reactive Presumed Non-Immune Equivocal Equivocal Reactive Presumed Immune Platelets bldon 06-30-2021 Platelets (Bld) [#/Vol] 194 10*3/uL 150-450 [facility] Work Phone: Serum Treponema species anti body detectionon 06-30-2021 Treponema sp Ab Ql (S) Non-Reactive [facility] Work Phone: Urine phencyclidine (PCP) de tectionon 06-30-2021 Phencyclidine Ql (U) Negative [facility] Work Phone: COVID-19 Antigenon 1 [...] its performance Subhash Disclaimer characteristic determined by [employer] and Subhash Disclaimer validated at [facility]. This Subhash Disclaimer test has not [...] is terminated or revoked sooner. PERFORMED BY: [place] [address] PATHOLOGIST HEEL SLUGGER JORDON BOWDEN M.D. Normal [facility] Comment on above: Performed By: #### S OFKARLIEG, COVID-19 SUBHASH #### [facility] [address] [place] [address] Subhash Ag Negativeon 03-11-20 21 Subhash Ag Negative Negative Normal Negative [facility] Comment on above: Result Comment: This is a duplicate Subhash SARS Antigen (BRYSON) result to be used for statistical tracking purpose only. PERFORMED BY: [place] [address] PATHOLOGIST HEEL SLUGGER JORDON BOWDEN M.D. Performed By: #### S OFIANEG, COVID-19 SUBHASH #### [facility] [address] [place], [place] [id number] [facility] Comprehensive Metabolic Empo n 02-09-2021 Albumin [Mass/Vol] 4.3 g/dL Normal 3.2-5.5 [facility] Comment on above: Performed By: #### E BS CMP, LIPID #### [facility] [address] Albumin/Globulin [Mass ratio] 1.5 {ratio} Normal [facility] Comment on above: Performed By: #### E BS CMP, LIPID #### [facility] [address] ALP [Catalytic activity/Vol] 39 U/L Normal 32-92 [facility] Comment on above: Performed By: #### E BS CMP, LIPID #### [facility] [address] ALT [Catalytic activity/Vol] 12 U/L Normal 10-60 [facility] Comment on above: Performed By: #### E BS CMP, LIPID #### [facility] [address] [place] [address] AST [Catalytic activity/Vol] 15 U/L Normal 10-42 [facility] Comment on above: Performed By: #### E BS CMP, LIPID #### [facility] [address] [place] [address] Bilirubin [Mass/Vol] 0.5 mg/dL Normal 0.3-1.2 [facility] Comment on above: Performed By: #### E BS CMP, LIPID #### [facility] [address] [place] [address] [place] Calcium [Mass/Vol] 9.5 mg/dL Normal 8.2-10.2 [facility] Comment on above: Performed By: #### E BS CMP, LIPID #### [facility] [address] [place] [address] [place] Chloride [Moles/Vol] 102 mmol/L Normal 95-114 [facility] Comment on above: Performed By: #### E BS CMP, LIPID #### [facility] [address] [place] [address] CO2 [Moles/Vol] 23.8 mmol/L Normal 22.0-30.0 [facility] Comment on above: Performed By: #### E BS CMP, LIPID #### [facility] [address] Creatinine [Mass/Vol] 0.83 mg/dL Normal 0.44-1.03 [facility] Comment on above: Performed By: #### E BS CMP, LIPID #### [facility] [address] Estimated GFR ( Radha > 60 Normal [facility] Comment on above: Result Comment: GFR estimated reference range: According to KDOQI guidelines, <60 ml/min/1.73m2 is sufficient to diagnose a patient with chronic kidney disease. Performed By: #### E BS CMP, LIPID #### [facility] [address] Estimated GFR (Non- Am > 60 Normal [facility] Comment on above: Performed By: #### E BS CMP, LIPID #### [facility] [address] Globulin (S) [Mass/Vol] 2.9 g/dL Normal [facility] Comment on above: Performed By: #### E BS CMP, LIPID #### [address] Glucose [Mass/Vol] 77 mg/dL Normal 70-100 [facility] Comment on above: Performed By: #### E BS CMP, LIPID #### [facility] [address] [place] [address] [place] Potassium [Moles/Vol] 3.4 mmol/L Low 3.5-5.1 [facility] Comment on above: Performed By: #### E BS CMP, LIPID #### [facility] [address] [place] [id number] [place] Protein [Mass/Vol] 7.2 g/dL Normal 6.1-7.9 [facility] Comment on above: Performed By: #### E BS CMP, LIPID #### [facility] [address] [place] [id number] [place] Sodium [Moles/Vol] 136 mmol/L Normal 136-146 [facility] Comment on above: Performed By: #### E BS CMP, LIPID #### [facility] [address] [place] [address] [place] Urea nitrogen [Mass/Vol] 7 mg/dL Low - [facility] Comment on above: Performed By: #### E BS CMP, LIPID #### [facility] [address] [place] [address] [place] Lipid Panelon 02-09-2021 Cholesterol [Mass/Vol] 218 mg/dL High 140-200 [facility] Comment on above: Result Comment: Chol less than 200 mg/dl low risk Chol 201-239 mg/dl borderline risk Chol 240 mg/dl and greater high risk Performed By: #### E BS CMP, LIPID #### [facility] [address] Cholesterol in HDL [Mass/Vol] 75 mg/dL Normal 35-85 [facility] Comment on above: Result Comment: HDL CHOL ATP-III CLASSIFICATION Cardiovascular Risk HDL > or equal to 60 mg/dL LOW HDL < 40 mg/dL HIGH Performed By: #### E BS CMP, LIPID #### [facility] [address] [place] [address] [place] Cholesterol.total/Chol esterol in HDL [Mass ratio] 2.9 {ratio} Normal <5.0 [facility] Comment on above: Result Comment: PERF ORMED BY: [place] [address] PATHOLOGIST HEEL SLUGGER JORDON BOWDEN M.D. Performed By: #### E BS CMP, LIPID #### [facility] [address] [place] [address] [place] LDL Cholesterol,Calculated 126 mg/dL High 0-100 [facility] Comment on above: Result Comment: LDL ATP III CLASSIFICATION LDL less than 100 mg/dL Optimal LDL 100-129 mg/dL Near or above optimal LDL 130-159 mg/dL Borderline high LDL 160-189 mg/dL High LDL greater than 189 mg/dL Very high Performed By: #### E BS CMP, LIPID #### [facility] [address] [place] [address] [place] Triglyceride w/Reflex 84 mg/dL Normal 35-149 [facility] Comment on above: Result Comment: TRIG ATP III CLASSIFICATION TRIG less than 150 mg/dL Normal TRIG 150-199 mg/dL Borderline high TRIG 200-500 mg/dL High TRIG greater than 500 mg/dL Very high Standard traceable to the Center for Disease Conrtrol and Prevention (CDC) test method. Performed By: #### E BS CMP, LIPID #### [facility] [address] VLDL CHOLESTEROL 16 mg/dL Normal [facility] Comment on above: Performed By: #### E BS CMP, LIPID #### [facility] [address] [place] [address] [facility] HPV Auto Reflex PAP (54020)O rdered By: Painter Spray on 08-09-2020 HPV Auto Reflex PAP (32207) [facility] Normal [facility] Work Phone: Comment on above: NEGATIVE FOR INTRAEP ITHELIAL LESION OR MALIGNANCY.Satisfactory for evaluation. No endocervical component is identified.[id number] Monica Tee, Livestock Farmer (ASCP) Source.............C ervix;EndocervixNo. of containers..01 ThinPrep VialPATIENT NOT FASTINGPERFORMED BY: [facility], IncBufunnwjpi[address] [id number] Information: [id number] HPV Auto Reflex PAP (45609) . Normal [facility]; [facility] Work Phone: Comment on above: Source.............C ervix;EndocervixNo. of containers..01 ThinPrep VialPATIENT NOT FASTINGPERFORMED BY: [facility] [id number] Information: [id number] HPV Auto Reflex PAP (88717) PAPSMR Normal [facility]; [facility] [...] of containers..01 ThinPrep VialPATIENT NOT FASTINGPERFORMED BY: UpRace120 [address] PlazaCrispy Driven Pixelsrleston W [id number] Information: [id number] Thin prep Pap (90431)Ordered By: Painter Spray on 06-17-2019 Thin prep Pap (46509) 21-24 Normal Com prehensive Internal Medicine; [facility] Work Phone: Comment on above: Source.............C ervix;EndocervixNo. of containers..01 ThinPrep VialPATIENT NOT FASTINGPERFORMED BY: =G LabAvenace Incorporated120 ClickT[address] PlaWellntelrleston W [id number] BY: UpRace120 [employer] [id number] Information: [id number] IGP, CtNg, rfx Aptima HPV CUon 06-10-2018 C. trachomatis rRNA ZULEMA+probe Ql (Cvx) Negative Normal [facility] Work Phone: Comment on above: No. of containers..0 1 ThinPrep VialPERFORMED BY: =G LabAven[employer]orporated120 [address] [id number] BY: UpRace120 FisionzaCrispy D[place]en Pixels[place] [id number] Microscopic observation Other stain Nom (Unsp spec) . Normal Comprehens marie Internal Medicine Work Phone: Comment on above: No. of containers..0 1 ThinPrep VialPERFORMED BY: =G LabIP [address] [facility] [place] [id number] BY: WB [facility] Qgiigcuobq[address] [place] [facility] [place] [id number] N. gonorrhoeae rRNA ZULEMA+probe Ql (Cvx) Negative Normal [facility] Work Phone: Comment on above: No. of containers..0 1 ThinPrep VialPERFORMED BY: =G [facility] Gmjsedrgjm573 [place] [facility] [place] [id number] BY: WB [facility] Cewehxnpzw098 [place] [facility] [place] [id number] Pathology report final diagnosis Narrative SPRCS Normal Comprehensiv e Internal Medicine Work Phone: Comment on above: NEGATIVE FOR INTRAEP ITHELIAL LESION AND MALIGNANCY.Satisfactory for evaluation. No endocervical component is identified.Z01.419Bruce Ck Bruner Livestock Farmer (ASCP) No. of containers..0 1 ThinPrep VialPERFORMED BY: =G [facility] Srqlizxbdx728 [place] [facility] [place] [id number] BY: WB LabVSee Lab, IncMojumyperd443 [facility] [place] [id number] IGP, CtNg, rfx Aptima HPV ASCU PAPSMR [...] containers..0 1 ThinPrep VialPERFORMED BY: =G [facility] Yccytblaqo033 [place] [facility] [place] [id number] BY: WB [facility] Hutwobpqhz484 [facility] [place] [id number] Thin prep Pap (73585) (no ST D testing)on 06-10-2018 Thin prep Pap (05726) (no STD testing) 21-24 Normal [facility] Work Phone: Comment on above: No. of containers..0 1 ThinPrep VialPERFORMED BY: =G LabCo[address] [id number] BY: WB LabCo Vunbfqmuko318[address] [id number] Information: [id number] Rapid Strep Test, Office (40 662)Ordered By: Katelyn Aburto on 05-23-2017 S. pyogenes Ag EIA Ql (Throat) Negative Normal [facility]; [facility] Work Phone: S. pyogenes Ag IA Ql (Unsp spec) Negative Normal [facility] Work Phone: VARICELLA-ZOSTER ANTBODY (96 847)on 09-11-2016 VZV IgG IA Qn (S) 3001 {index} Normal Compr ehensive Internal Medicine Work Phone: Comment on above: Negative <135 Equivo tristin 135 - 165 Positive >165 A positive result generally indicates exposure to the pathogen or administration of specific immunoglobulins, but it is not indication of active infection or stage of disease. PATIENT NOT FASTINGP ERFORMED BY: [facility] Jwupoc4404 [facility] [id number] Information: [id number] NuSwab STD (trich/BV/GC/clemente W/ Herpes) (18909)on 08-25-2016 A. vaginae DNA ZULEMA+probe Ql (Vag fld) Low - 0 Normal [facility] Work Phone: Comment on above: PATIENT NOT FASTINGP ERFORMED BY: [facility] Rwwfaizfta4379 [facility] [id number] Information: SRC:VA Bacterial vaginosis associated bacterium 2 DNA ZULEMA+probe Ql (Vag fld) Low - 0 Normal [facility] Work Phone: Comment on above: PATIENT NOT FASTINGP ERFORMED BY: [address] [id number] Information: SRC:VA C. albicans DNA ZULMEA+probe Ql (Vag fld) Negative Normal Comprehen [facility] Internal Medicine Work Phone: Comment on above: PATIENT NOT FASTINGP ERFORMED BY: [address] [id number] Information: SRC:VA C. glabrata DNA ZULEMA+probe Ql (Vag fld) Negative Normal Comprehen [facility] Internal Medicine Work Phone: Comment on above: This test was develo ped and its performance characteristics determinedby [facility]. It has not been cleared or approved by the Food and DrugAdministration. The FDA has determined that such clearance orapproval is not necessary. PATIENT NOT FASTINGP ERFORMED BY: [address] [id number] Information: SRC:VA C. trachomatis rRNA ZULEMA+probe Ql (Unsp spec) Negative Normal [facility] Work Phone: Comment on above: PATIENT NOT FASTINGP ERFORMED BY: [address] [id number] Information: SRC:VA HSV 1 DNA ZULEMA+probe Ql (Unsp spec) Negative Normal [facility] Work Phone: Comment on above: PATIENT NOT FASTINGP ERFORMED BY: [address] [id number] Information: SRC:VA HSV 2 DNA ZULEMA+probe Ql (Unsp spec) Negative Normal [facility] Work Phone: Comment on above: PATIENT NOT FASTINGP ERFORMED BY: [address] [id number] Information: SRC:VA Megasphaera sp type 1 DNA [...] was developed and its performance characteristicsdetermined by [employer]. It has not been cleared or approvedby the Food and Drug Administration. The FDA has determinedthat such clearance or approval is not necessary. PATIENT NOT FASTINGP ERFORMED BY: [address] [id number] Information: SRC:VA N. gonorrhoeae rRNA ZULEMA+probe Ql (Unsp spec) Negative Normal [facility] Work Phone: Comment on above: PATIENT NOT FASTINGP ERFORMED BY: [address] [id number] Information: SRC:VA T. vaginalis rRNA ZULEMA+probe Ql (Unsp spec) Negative Normal [facility] Work Phone: Comment on above: PATIENT NOT FASTINGP ERFORMED BY: [address] [id number] Information: SRC:NM NuSwab STD (trich/BV/GC/clemente W/ Herpes) (51097)Ordered By: Painter Spray on 08-25-2016 C. albicans DNA ZULEMA+probe Ql (Vag fld) Negative Normal Comprehen sive Internal Medicine; [facility] Work Phone: Comment on above: PATIENT NOT FASTINGP ERFORMED BY: [address] [id number] Information: SRC:VA C. glabrata DNA ZULEMA+probe Ql (Vag fld) Negative Normal Comprehen sive Internal Medicine; [facility] Work Phone: Comment on above: This test was develo ped and its performance characteristics determinedby [facility]. It has not been cleared or approved by the Food and DrugAdministration. The FDA has determined that such clearance orapproval is not necessary. PATIENT NOT FASTINGP ERFORMED BY: [address] [id number] Information: SRC:VA C. trachomatis rRNA ZULEMA+probe Ql (Unsp spec) Negative Normal [facility]; [facility] Work Phone: Comment on above: PATIENT NOT FASTINGP ERFORMED BY: [address] [id number] Information: SRC:NM HSV 1 DNA ZULEMA+probe Ql (Unsp spec) Negative Normal [facility]; [facility] Work Phone: Comment on above: PATIENT NOT FASTINGP ERFORMED BY: [address] [id number] Information: SRC:VA HSV 2 DNA ZULEMA+probe Ql (Unsp spec) Negative Normal [facility]; [facility] Work Phone: Comment on above: PATIENT NOT FASTINGP ERFORMED BY: [address] [id number] Information: SRC:VA N. gonorrhoeae rRNA ZULEMA+probe Ql (Unsp spec) Negative Normal [facility]; [facility] Work Phone: Comment on above: PATIENT NOT FASTINGP ERFORMED BY: [address] [id number] Information: SRC:VA T. vaginalis rRNA ZULEMA+probe Ql (Unsp spec) Negative Normal [facility]; [facility] Work Phone: Comment on above: PATIENT NOT FASTINGP ERFORMED BY: [address] [id number] Information: SRC:NM Pap IG (Image Guided)on 08-09 Microscopic observation Other stain Nom (Unsp spec) . Normal Comprehens marie Internal Medicine Work Phone: Comment on above: Source.............C ervix;EndocervixNo. of containers..01 CYTYC Thin Prep VialPATIENT NOT FASTINGPERFORMED BY: =G [facility] Gwpepqxahr[address] [id number] BY: WB [facility] Bfaewojrpl[address] [id number] Pathology report final diagnosis Narrative SPRCS Normal Comprehensiv e Internal Medicine Work Phone: Comment on above: NEGATIVE FOR INTRAEP ITHELIAL LESION AND MALIGNANCY.Satisfactory for evaluation. No endocervical component is identified.Z01.419Rensarahi Can, Livestock Farmer ([facility]) Source.............C ervix;EndocervixNo. of containers..01 CYTYC Thin Prep VialPATIENT NOT FASTINGPERFORMED BY: =G LabPixies[address] [id number] BY: [employer] Izydgcibpw340[address] [id number] Pap IG (Image Guided) PAPSMR Normal [facility] Internal Medicine Work Phone: Comment on above: [...] Thin Prep VialPATIENT NOT FASTINGPERFORMED BY: =G UpRace[address] [place] [address] [id number] BY: [employer] Fmibveitvw[address] [id number] Thin Prep Pap (73163)on 08-09 Thin Prep Pap (83139) AGE6 Normal [facility] prehensive Internal Medicine Work Phone: Comment on above: <21 or >65 or no age provided Source.............C ervix;EndocervixNo. of containers..01 CYTYC Thin Prep VialPATIENT NOT FASTINGPERFORMED BY: =G LabPixies28 Dunn StreetCrispy Driven PixelsLifecare Hospital of Mechanicsburg [id number] BY: LabCo[address] [id number] Information: [id number] No Panel Information Group B Streptococcus Culture Group B Beta Streptococcus is not isolated. [facility] Work Phone: Vital Signs Date Time Vital Sign Value Performing Clinician Facility 04-06-2025 14:20-0400 Body height 162.56 cm Kiya Percy CITY ENGINEER-C Work Phone: [facility] 04-06-2025 14:18-0400 Body mass index (BMI) [Ratio] 35.4 kg/m2 Kiya Percy CITY ENGINEER-C Work Phone: [facility] 04-06-2025 14:18-0400 Body weight 93.49 kg Kiya Percy CITY ENGINEER-C Work Phone: [facility] 04-06-2025 14:18-0400 Diastolic blood pressure 81 mm[Hg] Kiya Percy CITY ENGINEER-C Work Phone: [facility] 04-06-2025 14:18-0400 Systolic blood pressure 126 mm[Hg] Kiya Percy CITY ENGINEER-C Work Phone: [facility] 03-23-2025 13:40-0400 Body mass index (BMI) [Ratio] 35.5 kg/m2 Kiya Percy CITY ENGINEER-C Work Phone: [facility] 03-23-2025 13:40-0400 Body weight 93.92 kg Kiya Percy CITY ENGINEER-C Work Phone: [facility] 03-23-2025 13:40-0400 Diastolic blood pressure 81 mm[Hg] Kiya Percy CITY ENGINEER-C Work Phone: [facility] 03-23-2025 13:40-0400 Systolic blood pressure 112 mm[Hg] Kiya Percy CITY ENGINEER-C Work Phone: [facility] 03-09-2025 09:27-0400 Body height 162.56 cm Kiya Percy CITY ENGINEER-C Work Phone: [facility] 03-09-2025 09:27-0400 Body mass index (BMI) [Ratio] 34.9 kg/m2 Kiya Percy CITY ENGINEER-C Work Phone: [facility] 03-09-2025 09:27-0400 Body weight 92.24 kg Kiya Percy CITY ENGINEER-C Work Phone: [facility] 03-09-2025 09:27-0400 Diastolic blood pressure 79 mm[Hg] Kiya Percy CITY ENGINEER-C Work Phone: [facility] 03-09-2025 09:27-0400 Systolic blood pressure 119 mm[Hg] Kiya Percy CITY ENGINEER-C Work Phone: [facility] 02-25-2025 09:45-0400 Body height 162.56 cm Kiya Percy CITY ENGINEER-C Work Phone: [facility] 02-25-2025 09:45-0400 Body mass index (BMI) [Ratio] 34.5 kg/m2 Kiya Percy CITY ENGINEER-C Work Phone: [facility] 02-25-2025 09:45-0400 Body weight 91.28 kg Kiya Percy CITY ENGINEER-C Work Phone: [facility] 02-25-2025 09:45-0400 Diastolic blood pressure 82 mm[Hg] Kiya Percy CITY ENGINEER-C Work Phone: [facility] 02-25-2025 09:45-0400 Systolic blood pressure 131 mm[Hg] Kiya Percy CITY ENGINEER-C Work Phone: [facility] 02-11-2025 09:41-0400 Body height 162.56 cm Kiya Percy CITY ENGINEER-C Work Phone: [facility] 02-11-2025 09:39-0400 Body mass index (BMI) [Ratio] 34.3 kg/m2 Kiya Percy CITY ENGINEER-C Work Phone: [facility] 02-11-2025 09:39-0400 Body weight 90.77 kg Kiya Percy CITY ENGINEER-C Work Phone: [facility] 02-11-2025 09:39-0400 Diastolic blood pressure 80 mm[Hg] Kiya Percy CITY ENGINEER-C Work Phone: [facility] 02-11-2025 09:39-0400 Systolic blood pressure 127 mm[Hg] Kiya Percy CITY ENGINEER-C Work Phone: [facility] 01-26-2025 09:18-0400 Body height 162.56 cm Kiya Percy CITY ENGINEER-C Work Phone: [facility] 01-26-2025 09:18-0400 Body mass index (BMI) [Ratio] 33.8 kg/m2 Kiya Percy CITY ENGINEER-C Work Phone: [facility] 01-26-2025 09:18-0400 Body weight 89.41 kg Kiya Percy CITY ENGINEER-C Work Phone: [facility] 01-26-2025 09:18-0400 Diastolic blood pressure 76 mm[Hg] Kiya Percy CITY ENGINEER-C Work Phone: [facility] 01-26-2025 09:18-0400 Systolic blood pressure 131 mm[Hg] Kiya Percy CITY ENGINEER-C Work Phone: [facility] 12-31-2024 08:38-0400 Body height 162.56 cm Kiya Percy CITY ENGINEER-C Work Phone: [facility] 12-31-2024 08:37-0400 Body mass index (BMI) [Ratio] 33 kg/m2 Kiya Percy CITY ENGINEER-C Work Phone: [facility] 12-31-2024 08:37-0400 Body weight 87.31 kg Kiya Percy CITY ENGINEER-C Work Phone: [facility] 12-31-2024 08:37-0400 Diastolic blood pressure 74 mm[Hg] Kiya Percy CITY ENGINEER-C Work Phone: [facility] 12-31-2024 08:37-0400 Systolic blood pressure 108 mm[Hg] Kiya Percy CITY ENGINEER-C Work Phone: [facility] 12-01-2024 10:16-0400 Body height 162.56 cm Kiya Percy CITY ENGINEER-C Work Phone: [facility] 12-01-2024 10:16-0400 Body mass index (BMI) [Ratio] 31.1 kg/m2 Kiya Percy CITY ENGINEER-C Work Phone: [facility] 12-01-2024 10:16-0400 Body weight 82.21 kg Kiya Percy CITY ENGINEER-C Work Phone: [facility] 12-01-2024 10:16-0400 Diastolic blood pressure 73 mm[Hg] Kiya Percy CITY ENGINEER-C Work Phone: [facility] 12-01-2024 10:16-0400 Systolic blood pressure 137 mm[Hg] Kiya Percy CITY ENGINEER-C Work Phone: [facility] 11-05-2024 08:44-0400 Body height 162.56 cm Kiya Percy CITY ENGINEER-C Work Phone: [facility] 11-05-2024 08:41-0400 Body mass index (BMI) [Ratio] 30.7 kg/m2 Kiya Percy CITY ENGINEER-C Work Phone: [facility] 11-05-2024 08:41-0400 Body weight 81.24 kg Kiya Percy CITY ENGINEER-C Work Phone: [facility] 11-05-2024 08:41-0400 Diastolic blood pressure 85 mm[Hg] Kiya Percy CITY ENGINEER-C Work Phone: [facility] 11-05-2024 08:41-0400 Systolic blood pressure 125 mm[Hg] Kiya Percy CITY ENGINEER-C Work Phone: [facility] 09-29-2024 10:27-0400 Body height 162.56 cm Kiya Percy CITY ENGINEER-C Work Phone: [facility] 09-29-2024 10:27-0400 Body mass index (BMI) [Ratio] 29.4 kg/m2 Kiya Percy CITY ENGINEER-C Work Phone: [facility] 09-29-2024 10:27-0400 Body weight 77.67 kg Kiya Percy CITY ENGINEER-C Work Phone: [facility] 09-29-2024 10:27-0400 Diastolic blood pressure 78 mm[Hg] Kiya Percy CITY ENGINEER-C Work Phone: [facility] 09-29-2024 10:27-0400 Systolic blood pressure 129 mm[Hg] Kiya Percy CITY ENGINEER-C Work Phone: [facility] 09-19-2022 08:17-0400 Body height 167.64 cm Lilian Sepidehrb POTTERY DECORATION DESIGNER [facility]; [facility] Work Phone: 09-19-2022 08:17-0400 Body mass index (BMI) [Ratio] 24.86 kg/m2 Lilian Slarb POTTERY DECORATION DESIGNER [facility]; [facility] Work Phone: 09-19-2022 08:17-0400 Body surface area Derived from formula 1.79 m2 Lilian Slarb POTTERY DECORATION DESIGNER [facility]; [facility] Work Phone: 09-19-2022 08:17-0400 Body temperature 98.1 [degF] Lilian Slarb POTTERY DECORATION DESIGNER [facility]; [facility] Work Phone: Comment on above: Method: Temporal 09-19-2022 08:17-0400 Body weight 69.85 kg Lilian Slarb POTTERY DECORATION DESIGNER [facility]; [facility] Work Phone: 09-19-2022 08:17-0400 Diastolic blood pressure 76 mm[Hg] Lilian Slarb POTTERY DECORATION DESIGNER [facility]; [facility] Work Phone: Comment on above: Patient Position: Sitting; Cuff Location : Left Arm; Cuff Size: Standard 09-19-2022 08:17-0400 Heart rate 95 /min Lilian Slarb POTTERY DECORATION DESIGNER [facility]; [facility] Work Phone: Comment on above: Pattern: Regular 09-19-2022 08:17-0400 Respiratory rate 16 /min Lilian Pineda POTTERY DECORATION DESIGNER [facility]; [facility] Work Phone: Comment on above: Pattern: Unlabored 09-19-2022 08:17-0400 SaO2% (BldA) [Mass fraction] 98 % Lilian Pineda POTTERY DECORATION DESIGNER [facility]; [facility] Work Phone: Comment on above: Room air 09-19-2022 08:17-0400 Systolic blood pressure 114 mm[Hg] Lilian Pineda POTTERY DECORATION DESIGNER [facility]; [facility] Work Phone: Comment on above: Patient Position: Sitting; Cuff Location : Left Arm; Cuff Size: Standard 02-06-2022 08:32-0400 Body temperature 97.7 [degF] CITY ENGINEER-C Sowmya Rodrigueza CITY ENGINEER Work Phone: [facility] Work Phone: 02-06-2022 08:32-0400 Diastolic blood pressure 86 mm[Hg] CITY ENGINEER-C Sowmya Moralesesa CITY ENGINEER Work Phone: [facility] Work Phone: 02-06-2022 08:32-0400 Heart rate 76 /min CITY ENGINEER-C Sowmya Rodrigueza CITY ENGINEER Work Phone: [facility] Work Phone: 02-06-2022 08:32-0400 Respiratory rate 16 /min CITY ENGINEER-C Sowmya Moralesesa CITY ENGINEER Work Phone: [facility] Work Phone: 02-06-2022 08:32-0400 SaO2% (BldA) [Mass fraction] 96 % CITY ENGINEER-C Sowmya Moralesesa CITY ENGINEER Work Phone: [facility] Work Phone: 02-06-2022 08:32-0400 Systolic blood pressure 128 mm[Hg] CITY ENGINEER-C Sowmya Moralesesa CITY ENGINEER Work Phone: [facility] Work Phone: 02-04-2022 07:12-0400 Body height 162.56 cm CITY ENGINEER-C Sowmya Cidavida CITY ENGINEER Work Phone: [facility] Work Phone: 02-04-2022 07:12-0400 Body mass index (BMI) [Ratio] 32.8 kg/m2 CITY ENGINEER-C Sowmya Ciesa CITY ENGINEER Work Phone: [facility] Work Phone: 02-04-2022 07:12-0400 Body weight 86.7 kg CITY ENGINEER-C Sowmya Ciesa CITY ENGINEER Work Phone: [facility] Work Phone: 02-03-2022 14:33-0400 Body mass index (BMI) [Ratio] 32.4 kg/m2 CITY ENGINEER-C Sowmya Ciesa CITY ENGINEER Work Phone: [facility] Work Phone: 02-03-2022 14:33-0400 Body weight 85.72 kg CITY ENGINEER-C Sowmya Ciesa CITY ENGINEER Work Phone: [facility] Work Phone: 02-03-2022 14:33-0400 Diastolic blood pressure 60 mm[Hg] CITY ENGINEER-C Sowmya Ciesa CITY ENGINEER Work Phone: [facility] Work Phone: 02-03-2022 14:33-0400 Systolic blood pressure 124 mm[Hg] CITY ENGINEER-C Sowmya Ciesa CITY ENGINEER Work Phone: [facility] Work Phone: 01-27-2022 10:58-0400 Body mass index (BMI) [Ratio] 32 kg/m2 CITY ENGINEER-C Sowmya Ciesa CITY ENGINEER Work Phone: [facility] Work Phone: 01-27-2022 10:58-0400 Body weight 84.59 kg CITY ENGINEER-C Sowmya Ciesa CITY ENGINEER Work Phone: [facility] Work Phone: 01-27-2022 10:58-0400 Diastolic blood pressure 76 mm[Hg] CITY ENGINEER-C Sowmya Ciesa CITY ENGINEER Work Phone: [facility] Work Phone: 01-27-2022 10:58-0400 Systolic blood pressure 128 mm[Hg] CITY ENGINEER-C Sowmya Ciesa CITY ENGINEER Work Phone: [facility] Work Phone: 01-17-2022 11:19-0400 Diastolic blood pressure 70 mm[Hg] CITY ENGINEER-C Sowmya Ciesa CITY ENGINEER Work Phone: [facility] Work Phone: 01-17-2022 11:19-0400 Systolic blood pressure 98 mm[Hg] CITY ENGINEER-C Sowmya Ciesa CITY ENGINEER Work Phone: [facility] Work Phone: 01-17-2022 11:19-0400 Body mass index (BMI) [Ratio] 31.7 kg/m2 CITY ENGINEER-C Sowmya Ciesa CITY ENGINEER Work Phone: [facility] Work Phone: 01-17-2022 11:19-0400 Body weight 83.91 kg CITY ENGINEER-C Sowmya Ciesa CITY ENGINEER Work Phone: [facility] Work Phone: 01-11-2022 08:54-0400 Body mass index (BMI) [Ratio] 31.4 kg/m2 CITY ENGINEER-C Sowmya Ciesa CITY ENGINEER Work Phone: [facility] Work Phone: 01-11-2022 08:54-0400 Body weight 83 kg CITY ENGINEER-C Sowmya Ciesa CITY ENGINEER Work Phone: [facility] Work Phone: 01-11-2022 08:54-0400 Diastolic blood pressure 82 mm[Hg] CITY ENGINEER-C Sowmya Ciesa CITY ENGINEER Work Phone: [facility] Work Phone: 01-11-2022 08:54-0400 Systolic blood pressure 122 mm[Hg] CITY ENGINEER-C Sowmya Ciesa CITY ENGINEER Work Phone: [facility] Work Phone: 01-02-2022 13:19-0400 Body height 162.56 cm CITY ENGINEER-C Sowmya Ciesa CITY ENGINEER Work Phone: [facility] Work Phone: 01-02-2022 13:18-0400 Body mass index (BMI) [Ratio] 30.9 kg/m2 CITY ENGINEER-C Sowmya Ciesa CITY ENGINEER Work Phone: [facility] Work Phone: 01-02-2022 13:18-0400 Body weight 81.64 kg CITY ENGINEER-C Sowmya Carmenesa CITY ENGINEER Work Phone: [facility] Work Phone: 01-02-2022 13:18-0400 Diastolic blood pressure 74 mm[Hg] CITY ENGINEER-C Sowmya Moralesesa CITY ENGINEER Work Phone: [facility] Work Phone: 01-02-2022 13:18-0400 Systolic blood pressure 112 mm[Hg] CITY ENGINEER-C Sowmya Moralesesa CITY ENGINEER Work Phone: [facility] Work Phone: 12-27-2021 09:35-0400 Body mass index (BMI) [Ratio] 30.2 kg/m2 CITY ENGINEER-C Sowmya Ciesa CITY ENGINEER Work Phone: [facility] Work Phone: 12-27-2021 09:35-0400 Body weight 79.83 kg CITY ENGINEER-C Sowmya Ciesa CITY ENGINEER Work Phone: [facility] Work Phone: 12-27-2021 09:35-0400 Diastolic blood pressure 79 mm[Hg] CITY ENGINEER-C Sowmya Ciesa CITY ENGINEER Work Phone: [facility] Work Phone: 12-27-2021 09:35-0400 Heart rate 107 /min CITY ENGINEER-C Sowmya Rodrigueza CITY ENGINEER Work Phone: [facility] Work Phone: 12-27-2021 09:35-0400 Respiratory rate 16 /min CITY ENGINEER-C Sowmya Rodrigueza CITY ENGINEER Work Phone: [facility] Work Phone: 12-27-2021 09:35-0400 SaO2% (BldA) [Mass fraction] 99 % CITY ENGINEER-C Sowmya Rodrigueza CITY ENGINEER Work Phone: [facility] Work Phone: 12-27-2021 09:35-0400 Systolic blood pressure 129 mm[Hg] CITY ENGINEER-C Sowmya Rodrigueza CITY ENGINEER Work Phone: [facility] Work Phone: 12-20-2021 10:39-0400 Body mass index (BMI) [Ratio] 30.2 kg/m2 CITY ENGINEER-C Sowmya Rodrigueza CITY ENGINEER Work Phone: [facility] Work Phone: 12-20-2021 10:39-0400 Body weight 79.88 kg CITY ENGINEER-C Sowmya Rodrigueza CITY ENGINEER Work Phone: [facility] Work Phone: 12-20-2021 10:39-0400 Diastolic blood pressure 64 mm[Hg] CITY ENGINEER-C Sowmya Rodrigueza CITY ENGINEER Work Phone: [facility] Work Phone: 12-20-2021 10:39-0400 Systolic blood pressure 132 mm[Hg] CITY ENGINEER-C Sowmya Moralesesa CITY ENGINEER Work Phone: [facility] Work Phone: 12-14-2021 13:28-0400 Diastolic blood pressure 70 mm[Hg] CITY ENGINEER-C Sowmya Moralesesa CITY ENGINEER Work Phone: [facility] Work Phone: 12-14-2021 13:28-0400 Heart rate 105 /min CITY ENGINEER-C Sowmya Baldwin CITY ENGINEER Work Phone: [facility] Work Phone: 12-14-2021 13:28-0400 Respiratory rate 16 /min CITY ENGINEER-C Sowmya Baldwin CITY ENGINEER Work Phone: [facility] Work Phone: 12-14-2021 13:28-0400 SaO2% (BldA) [Mass fraction] 98 % CITY ENGINEER-C Sowmya Baldwin CITY ENGINEER Work Phone: [facility] Work Phone: 12-14-2021 13:28-0400 Systolic blood pressure 115 mm[Hg] CITY ENGINEER-C Sowmya Baldwin CITY ENGINEER Work Phone: [facility] Work Phone: 12-14-2021 10:57-0400 Body height 162.56 cm CITY ENGINEER-C Sowmya Baldwin CITY ENGINEER Work Phone: [facility] Work Phone: 12-14-2021 10:57-0400 Body mass index (BMI) [Ratio] 29.5 kg/m2 CITY ENGINEER-C Sowmya Baldwin CITY ENGINEER Work Phone: [facility] Work Phone: 12-14-2021 10:57-0400 Body temperature 97.8 [degF] CITY ENGINEER-C Sowmya Baldwin CITY ENGINEER Work Phone: [facility] Work Phone: 12-14-2021 10:57-0400 Body weight 78.01 kg CITY ENGINEER-C Sowmya Baldwin CITY ENGINEER Work Phone: [facility] Work Phone: 12-08-2021 09:02-0400 Body mass index (BMI) [Ratio] 29.5 kg/m2 CITY ENGINEER-C Sowmya Baldwin CITY ENGINEER Work Phone: [facility] Work Phone: 12-08-2021 09:02-0400 Body weight 78.01 kg CITY ENGINEER-C Sowmya Ciesa CITY ENGINEER Work Phone: [facility] Work Phone: 12-08-2021 09:02-0400 Diastolic blood pressure 56 mm[Hg] CITY ENGINEER-C Sowmya Ciesa CITY ENGINEER Work Phone: [facility] Work Phone: 12-08-2021 09:02-0400 Systolic blood pressure 124 mm[Hg] CITY ENGINEER-C Sowmya Ciesa CITY ENGINEER Work Phone: [facility] Work Phone: 11-25-2021 09:53-0400 Body mass index (BMI) [Ratio] 29 kg/m2 CITY ENGINEER-C Sowmya Ciesa CITY ENGINEER Work Phone: [facility] Work Phone: 11-25-2021 09:53-0400 Body weight 76.71 kg CITY ENGINEER-C Sowmya Ciesa CITY ENGINEER Work Phone: [facility] Work Phone: 11-25-2021 09:53-0400 Diastolic blood pressure 70 mm[Hg] CITY ENGINEER-C Sowmya Ciesa CITY ENGINEER Work Phone: [facility] Work Phone: 11-25-2021 09:53-0400 Systolic blood pressure 120 mm[Hg] CITY ENGINEER-C Sowmya Ciesa CITY ENGINEER Work Phone: [facility] Work Phone: 11-08-2021 10:24-0400 Body mass index (BMI) [Ratio] 28.5 kg/m2 CITY ENGINEER-C Sowmya Ciesa CITY ENGINEER Work Phone: [facility] Work Phone: 11-08-2021 10:24-0400 Body weight 75.4 kg CITY ENGINEER-C Sowyma Ciesa CITY ENGINEER Work Phone: [facility] Work Phone: 11-08-2021 10:24-0400 Diastolic blood pressure 60 mm[Hg] CITY ENGINEER-C Sowmya Ciesa CITY ENGINEER Work Phone: [facility] Work Phone: 11-08-2021 10:24-0400 Systolic blood pressure 100 mm[Hg] CITY ENGINEER-C Sowmya Ciesa CITY ENGINEER Work Phone: [facility] Work Phone: 10-26-2021 08:31-0400 Body mass index (BMI) [Ratio] 28.2 kg/m2 CITY ENGINEER-C Sowmya Carmenesa CITY ENGINEER Work Phone: [facility] Work Phone: 10-26-2021 08:31-0400 Body weight 74.55 kg CITY ENGINEER-C Sowmya Moralesesa CITY ENGINEER Work Phone: [facility] Work Phone: 10-26-2021 08:31-0400 Diastolic blood pressure 70 mm[Hg] CITY ENGINEER-C Sowmya Moralesesa CITY ENGINEER Work Phone: [facility] Work Phone: 10-26-2021 08:31-0400 Systolic blood pressure 110 mm[Hg] CITY ENGINEER-C Sowmya Moralesesa CITY ENGINEER Work Phone: [facility] Work Phone: 10-26-2021 08:31-0400 Body height 162.56 cm CITY ENGINEER-C Sowmya Moralesesa CITY ENGINEER Work Phone: [facility] Work Phone: 10-26-2021 08:31-0400 Body mass index (BMI) [Ratio] 28.2 kg/m2 CITY ENGINEER-C Sowmya Moralesesa CITY ENGINEER Work Phone: [facility] Work Phone: 10-26-2021 08:31-0400 Body weight 74.55 kg CITY ENGINEER-C Sowmya Moralesesa CITY ENGINEER Work Phone: [facility] Work Phone: 10-26-2021 08:31-0400 Diastolic blood pressure 70 mm[Hg] CITY ENGINEER-C Sowmya Ciesa CITY ENGINEER Work Phone: [facility] Work Phone: 10-26-2021 08:31-0400 Systolic blood pressure 110 mm[Hg] CITY ENGINEER-C Sowmya Rodrigueza CITY ENGINEER Work Phone: [facility] Work Phone: 09-23-2021 09:45-0400 Body mass index (BMI) [Ratio] 26.6 kg/m2 CITY ENGINEER-C Sowmya Rodrigueza CITY ENGINEER Work Phone: [facility] Work Phone: 09-23-2021 09:45-0400 Body weight 70.36 kg CITY ENGINEER-C Sowmya Rodrigueza CITY ENGINEER Work Phone: [facility] Work Phone: 09-23-2021 09:45-0400 Diastolic blood pressure 70 mm[Hg] CITY ENGINEER-C Sowmya Moralesesa CITY ENGINEER Work Phone: [facility] Work Phone: 09-23-2021 09:45-0400 Systolic blood pressure 130 mm[Hg] CITY ENGINEER-C Sowmya Rodrigueza CITY ENGINEER Work Phone: [facility] Work Phone: 08-23-2021 08:52-0400 Body mass index (BMI) [Ratio] 25.6 kg/m2 CITY ENGINEER-C Sowmya Rodrigueza CITY ENGINEER Work Phone: [facility] Work Phone: 08-23-2021 08:52-0400 Body weight 67.75 kg CITY ENGINEER-C Sowmya Rodrigueza CITY ENGINEER Work Phone: [facility] Work Phone: 08-23-2021 08:52-0400 Diastolic blood pressure 80 mm[Hg] CITY ENGINEER-C Sowmya Moralesesa CITY ENGINEER Work Phone: [facility] Work Phone: 08-23-2021 08:52-0400 Systolic blood pressure 110 mm[Hg] CITY ENGINEER-C Sowmya Rodrigueza CITY ENGINEER Work Phone: [facility] Work Phone: 08-23-2021 08:52-0400 Body mass index (BMI) [Ratio] 25.6 kg/m2 CITY ENGINEER-C Sowmya Ciesa CITY ENGINEER Work Phone: [facility] Work Phone: 08-23-2021 08:52-0400 Body weight 67.75 kg CITY ENGINEER-C Sowmya Ciesa CITY ENGINEER Work Phone: [facility] Work Phone: 08-23-2021 08:52-0400 Diastolic blood pressure 80 mm[Hg] CITY ENGINEER-C Sowmya Ciesa CITY ENGINEER Work Phone: [facility] Work Phone: 08-23-2021 08:52-0400 Systolic blood pressure 110 mm[Hg] CITY ENGINEER-C Sowmya Ciesa CITY ENGINEER Work Phone: [facility] Work Phone: 07-26-2021 08:02-0500 Body mass index (BMI) [Ratio] 25 kg/m2 CITY ENGINEER-C Sowmya Ciesa CITY ENGINEER Work Phone: [facility] Work Phone: 07-26-2021 08:02-0500 Body weight 66.28 kg CITY ENGINEER-C Sowmya Ciesa CITY ENGINEER Work Phone: [facility] Work Phone: 07-26-2021 08:02-0500 Diastolic blood pressure 80 mm[Hg] CITY ENGINEER-C Sowmya Ciesa CITY ENGINEER Work Phone: [facility] Work Phone: 07-26-2021 08:02-0500 Systolic blood pressure 124 mm[Hg] CITY ENGINEER-C Sowmya Ciesa CITY ENGINEER Work Phone: [facility] Work Phone: 06-30-2021 09:17-0500 Body mass index (BMI) [Ratio] 25 kg/m2 CITY ENGINEER-C Sowmya Ciesa CITY ENGINEER Work Phone: [facility] Work Phone: 06-30-2021 09:17-0500 Body weight 66.28 kg CITY ENGINEER-C Sowmya Baldwin CITY ENGINEER Work Phone: [facility] Work Phone: 06-30-2021 09:17-0500 Diastolic blood pressure 90 mm[Hg] CITY ENGINEER-C Sowmya Baldwin CITY ENGINEER Work Phone: [facility] Work Phone: 06-30-2021 09:17-0500 Systolic blood pressure 140 mm[Hg] CITY ENGINEER-C Sowmya Rodrigueza CITY ENGINEER Work Phone: [facility] Work Phone: 08-09-2020 11:01-0500 BMI (Body Mass [...] 08:39-0500 Body Temperature 98.4 [degF] Ele Roselear [facility] Work Phone: Comment on above: Method: Temporal 06-10-2018 08:39-0500 Body weight 67.3 kg Ele Osorio [facility] Work Phone: 06-10-2018 08:39-0500 BP Diastolic 78 mm[Hg] Ele Jo [facility] Work Phone: Comment on above: Patient Position: Sitting; Cuff Location : Left Arm; Cuff Size: Standard 06-10-2018 08:39-0500 BP Systolic 132 mm[Hg] Eel Osorio [facility] Work Phone: Comment on above: Patient Position: Sitting; Cuff Location : Left Arm; Cuff Size: Standard 06-10-2018 08:39-0500 BSA (Body Surface Area) 1.76 m2 Ele Osorio [facility] Work Phone: 06-10-2018 08:39-0500 Height 167.64 cm Ele Osorio [facility] Work Phone: 06-10-2018 08:39-0500 Pulse (Heart Rate) 113 /min Ele Osorio [facility] Work Phone: Comment on above: Pattern: Regular 06-10-2018 08:39-0500 Pulse Oximetry 98 % Sowmya Denny [facility] Work Phone: Comment on above: Room air 06-10-2018 08:39-0500 Respiratory Rate 16 /min Ele Osorio [facility] Work Phone: Comment on above: Pattern: Unlabored 06-10-2018 08:39-0500 SaO2% (BldA) [Mass fraction] 98 % Ele Osorio [facility]; [facility] Work Phone: Comment on above: Room air 05-23-2017 11:38-0500 BMI (Body Mass Index) 20.01 kg/m2 Katelyn Aburto [facility] Work Phone: 05-23-2017 11:38-0500 Body weight 56.25 [facility] Work Phone: 05-23-2017 11:38-0500 BP Diastolic 70 mm[Hg] Katelyn Aburto [facility] Work Phone: Comment on above: Patient Position: Sitting; Cuff Location : Left Arm; Cuff Size: Standard 05-23-2017 11:38-0500 BP Systolic 115 mm[Hg] [facility]: Comment on above: Patient Position: Sitting; Cuff Location : Left Arm; Cuff Size: Standard 05-23-2017 11:38-0500 BSA (Body Surface Area) 1.63 m2 [facility] Work Phone: 05-23-2017 11:38-0500 Height 167.64 cm [facility] Work Phone: 05-23-2017 11:38-0500 Pulse (Heart Rate) 82 /min Katelyn Aburto [facility] Work Phone: Comment on above: Pattern: Regular 05-23-2017 11:38-0500 Pulse Oximetry 98 % Sowmya Baldwin [facility] Work Phone: Comment on above: Room air 05-23-2017 11:38-0500 Respiratory Rate 16 /min Katelyn Aburto [facility] Work Phone: Comment on above: Pattern: Unlabored 05-23-2017 11:38-0500 SaO2% (BldA) [Mass fraction] 98 % Katelyn Aburto [facility]; [facility] Work Phone: Comment on above: Room air 08-25-2016 10:24-0400 BMI (Body Mass Index) 20.01 kg/m2 Lilian Slarb [employer] DESIGN[employer] [facility] Work Phone: 08-25-2016 10:24-0400 Body Temperature 98.3 [degF] Lilian Slarb [employer]OTTER[employer] DECORATION DESIGNER [facility] Work Phone: 08-25-2016 10:24-0400 Body weight 56.25 kg Lilian Slarb [employer]OTTER[employer] DECORATION DESIGNER [facility] Work Phone: 08-25-2016 10:24-0400 BP Diastolic 78 mm[Hg] Lilian Slarb [employer]OTTER[employer] DECORATION DESIGNER [facility] Work Phone: Comment on above: Patient Position: Sitting; Cuff Location : Left Arm; Cuff Size: Standard 08-25-2016 10:24-0400 BP Systolic 118 mm[Hg] Lilian Slarb POTTER[employer] DECORATION DESIGNER [facility] Work Phone: Comment on above: Patient Position: Sitting; Cuff Location : Left Arm; Cuff Size: Standard 08-25-2016 10:24-0400 BSA (Body Surface Area) 1.63 m2 Lilian Slarb [employer]OTTER[employer] DECORATION DESIGNER [facility] Work Phone: 08-25-2016 10:24-0400 Height 167.64 cm Lilian Slarb POTTER[employer] DECORATION DESIGNER [facility] Work Phone: 08-25-2016 10:24-0400 [...] Provider Facility Start: 04-20-2025 ambulatory [facility] Start: 04-20-2025 End: 04-20-2025 ambulatory [facility] Facility:[facility] Start: 04-14-2025 End: 04-14-2025 ambulatory [place]ya [place] Start: 04-06-2025 [facility] Start: 04-06-2025 End: 04-06-2025 ambulatory [facility] Facility[facility] Start: 03-23-2025 End: 03-23-2025 Patient encounter procedure Suzanne Salazar CITY ENGINEER-C -[facility] Work Phone: Start: 03-23-2025 End: 03-23-2025 ambulatory Kiya Greer CITY ENGINEER-C Work Phone: -[facility] Start: 03-09-2025 End: 03-09-2025 ambulatory Kiya Greer CITY ENGINEER-C Work Phone: -[facility] Start: 03-09-2025 End: 03-09-[address] Rose Mahmood DO -[facility] Work Phone: Start: 02-25-2025 End: 02-25-[address] Dorothy Lee MD -[facility] Work Phone: Start: 02-25-2025 End: 02-25-2025 ambulatory Kiya Greer CITY ENGINEER-C Work Phone: [facility] Start: 02-11-2025 End: 02-11-[address] Rose Mahmood DO -[facility] Work Phone: Start: 02-11-2025 End: 02-11-2025 ambulatory Kiya Greer CITY ENGINEER-C Work Phone: [facility] Start: 01-26-2025 End: 01-26-[address] Dorothy Lee MD -[facility] Work Phone: Start: 01-26-2025 End: 01-26-2025 ambulatory Kiya Greer CITY ENGINEER-C Work Phone: [facility] Start: 01-26-2025 End: 01-26-2025 ambulatory Kiya Greer Facility:[facility] Start: 12-31-2024 End: 12-31-[address] Rose Mahmood DO -[facility] Work Phone: Start: 12-31-2024 End: 12-31-2024 ambulatory Kiya Greer CITY ENGINEER-C Work Phone: [facility] Start: 12-15-2024 End: 12-15-2024 ambulatory NO PRIMARY CARE [facility] Start: 12-01-2024 End: 12-01-2024 ambulatory NO PRIMARY CARE [facility] Start: 12-01-2024 End: 12-01-[address] Dorothy Lee MD -[facility] Work Phone: Start: 12-01-2024 End: 12-01-2024 ambulatory Kiya Greer CITY ENGINEER-C Work Phone: [facility] Work Phone: Start: 11-05-2024 End: 11-05-[address] Rose Mahmood DO -[facility] Work Phone: Start: 11-05-2024 End: 11-05-2024 ambulatory Kiya Percy CITY ENGINEER-C Work Phone: [facility] Work Phone: Start: 11-05-2024 End: 11-05-2024 ambulatory Kiya Greer Facility:[facility] Start: 09-29-2024 End: 09-29-2024 ambulatory Kiya Greer CITY ENGINEER-C Work Phone: [facility] Work Phone: Start: 09-29-2024 End: 09-29-[address] Dorothy Lee MD -Laboratory, Specimen Work Phone: Start: 09-29-2024 End: 09-29-[address] Dorothy Lee MD -[facility] Work Phone: Start: 09-29-2024 End: 09-29-2024 ambulatory Kiya Greer [facility] Start: 09-29-2024 End: 09-29-2024 ambulatory Dorothy Lee Facility:[facility] Start: 04-28-2024 End: 04-28-2024 ambulatory Kiya Greer Facility:[facility] Start: 04-28-2024 End: 04-28-2024 ambulatory Suzanne Salazar CITY ENGINEER Facility:[facility] Start: 09-19-2022 ambulatory Kiya Greer DRAMA CRITIC [facility] Start: 09-19-2022 End: 10-09-2022 Periodic preventive med est patient 18-39 yrs Kiya Greer DRAMA CRITIC Work Phone: [facility] Start: 09-19-2022 Review Kiya Greer DRAMA CRITIC Work Phone: [facility] Start: 02-06-2022 Non-patient / Non-visit CITY ENGINEER-C Sowmya Baldwin CITY ENGINEER Work Phone: [facility] Start: 02-05-2022 Non-patient / Non-visit CITY ENGINEER-C Sowmya Rodrigueza CITY ENGINEER Work Phone: [facility] Start: 02-04-2022 Non-patient / Non-visit CITY ENGINEER-C Sowmya Rodrigueza CITY ENGINEER Work Phone: [facility] Start: 02-04-2022 End: 02-06-2022 Evaluation and management of inpatient CITY ENGINEER-C Sowmya Rodrigueza CITY ENGINEER [facility] Start: 02-03-2022 End: 02-03-2022 Patient encounter procedure CITY ENGINEER-C Sowmya Rodrigueza CITY ENGINEER Work Phone: [facility] Start: 01-27-2022 End: 01-27-2022 Patient encounter procedure CITY ENGINEER-C Sowmya Rodrigueza CITY ENGINEER Work Phone: [facility] Start: 01-17-2022 End: 01-17-2022 Patient encounter procedure CITY ENGINEER-C Sowmya Rodrigueza CITY ENGINEER Work Phone: [facility] Start: 01-17-2022 End: 01-17-2022 Patient encounter procedure CITY ENGINEER-C Sowmya Rodrigueza CITY ENGINEER Work Phone: [facility] Start: 01-11-2022 End: 01-11-2022 Patient encounter procedure CITY ENGINEER-C Sowmya Rodrigueza CITY ENGINEER Work Phone: [facility] Start: 01-04-2022 Non-patient / Non-visit CITY ENGINEER-C Sowmya Rodrigueza CITY ENGINEER Work Phone: [facility] Start: 01-04-2022 End: 01-04-2022 Patient encounter procedure CITY ENGINEER-C Sowmya Rodrigueza CITY ENGINEER Work Phone: [facility] Start: 01-03-2022 End: 01-03-2022 Patient encounter procedure CITY ENGINEER-C Sowmya Ciesa CITY ENGINEER Work Phone: [facility]-Laboratory, Specimen Start: 01-02-2022 End: 01-02-2022 Patient encounter procedure CITY ENGINEER-C Sowmya Rodrigueza CITY ENGINEER Work Phone: [facility] Start: 12-27-2021 End: 12-27-2021 Patient encounter procedure CITY ENGINEER-C Sowmya Rodrigueza CITY ENGINEER Work Phone: [facility] Start: 12-20-2021 Non-patient / Non-visit CITY ENGINEER-C Sowmya Rodrigueza CITY ENGINEER Work Phone: [facility] Start: 12-20-2021 End: 12-20-2021 Patient encounter procedure CITY ENGINEER-C Sowmya Rodrigueza CITY ENGINEER Work Phone: [facility] Start: 12-14-2021 End: 12-14-2021 Patient encounter procedure CITY ENGINEER-C Sowmya Rodriguezfranky CITY ENGINEER Work Phone: [facility] Start: 12-14-2021 End: 12-14-2021 Emergency department patient visit CITY ENGINEER-C Sowmya Rodrigueza CITY ENGINEER Work Phone: [facility]-Emergency Department Start: 12-08-2021 End: 12-08-2021 Patient encounter procedure CITY ENGINEER-C Sowmya Rodrigueza CITY ENGINEER Work Phone: [facility] Start: 11-25-2021 End: 11-25-2021 Patient encounter procedure CITY ENGINEER-C Sowmya Rodrigueza CITY ENGINEER Work Phone: [facility] Start: 11-08-2021 End: 11-08-2021 Patient encounter procedure CITY ENGINEER-C Sowmya Rodrigueza CITY ENGINEER Work Phone: [facility] Start: 10-26-2021 End: 10-26-2021 Patient encounter procedure CITY ENGINEER-C Sowmya Rodrigueza CITY ENGINEER Work Phone: [facility] Start: 09-23-2021 End: 09-23-2021 Patient encounter procedure CITY ENGINEER-C Sowmya Baldwin CITY ENGINEER Work Phone: [facility] Start: 08-23-2021 End: 08-23-2021 Patient encounter procedure CITY ENGINEER-C Sowmya Baldwin CITY ENGINEER Work Phone: [facility] Start: 07-26-2021 End: 07-26-2021 Patient encounter procedure CITY ENGINEER-C Sowmya Baldwin CITY ENGINEER Work Phone: [facility] Start: 06-30-2021 End: 06-30-2021 Patient encounter procedure CITY ENGINEER-C Sowmya Baldwin CITY ENGINEER Work Phone: [facility]Laboratory[facility] Start: 06-30-2021 End: 06-30-2021 Patient encounter procedure CITY ENGINEER-C Sowmya Baldwin CITY ENGINEER Work Phone: [facility] Start: 08-09-2020 End: 08-09-2020 Patient encounter procedure Rosalino Ramírez LPN [facility]; [facility] Work Phone: Start: 08-09-2020 End: 08-09-2020 Periodic preventive med est patient 18-39 yrs Sowmya Balwdin [facility] Start: 06-16-2019 End: 06-16-2019 Patient encounter procedure Kiya Greer DRAMA CRITIC Work Phone: [facility] Start: 06-16-2019 End: 06-16-2019 Periodic preventive med est patient 18-39 yrs Sowmya Baldwin [facility] Start: 06-10-2018 End: 06-10-2018 Patient encounter procedure Kiya Greer DRAMA CRITIC Work Phone: [facility] Start: 06-10-2018 End: 06-10-2018 Periodic preventive med est patient 18-39 yrs Sowmya Denny [facility] Start: 05-23-2017 End: 05-23-2017 Office outpatient visit 15 minutes Sowmya Baldwin [facility] Start: 09-11-2016 End: 09-11-2016 Annotation/Addendum Sowmya Baldwin [facility] Start: 08-25-2016 End: 08-25-2016 Office outpatient new 30 minutes Sowmya Baldwin [facility] Start: 08-25-2016 End: 08-25-2016 Patient encounter procedure Kiya Greer DRAMA CRITIC Work Phone: [facility] End: 09-19-2022 Patient encounter procedure Lilian Pineda [employer] 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 Follow CDC recommendations for supplemental testing.Non-Reactive: Antibodies to HCV were not detected; does not exclude the possibility of exposure to HCVReactive Results are presumptive evidence of antibodies to HCV. Follow CDC recommendations for supplemental testing.Order confirmation testing: HCV Quant by PCR testing - HCVPCR [id number] Non Reactive: < 0.8 Equivocal: >/= 0.8 to < 1.0 Reactive: >/= 1.0The CDC requires that a reactive/equivocal HCV antibody result be sent out for confirmation. HCV Quant by PCR testing. Start: 11-05-2024 Rubella IgG measurement Kiya Greer CITY ENGINEER-C Work Phone: Comment on above: Antibody Result: InterpretationNon-React marie: Non-ImmuneReactive: ImmuneThe following results were obtained with the ElecXinguodus Rubella IgG assay. Results from assays of other manufacturers cannot be used interchangeably. Start: 11-05-2024 Serologic test for syphilis Kiya Greer CITY ENGINEER-C Work Phone: Start: 09-29-2024 Urine culture Kiya Greer CITY ENGINEER-C Work Phone: Start: 03-20-2022 End: 03-20-2022 Audiometric Technician Office Visit Report Procedure Note: See Note; NOTES: [facility] [address] [place] [address] OFFICE VISIT Date of Service: 03/20/22 MR#: [id number] Acct: [id number] Name: MARTIN CASTELLANOS Rep #: [id number] : 1995 Provider: Dr. 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 animals: Yes Smoking Status: [...] 41 live - full term Female epidural [facility] Pelon audra Mobley Delivery Date: 02/05/22 Last [...] symptoms Infant Feeding: Breast Menses resumed: No [place] since delivery: No Emotional Support: Yes ROS [...] Signature: Date (if applicable) CC: Kiya Greer [facility] Work Phone: Start: 02-10-2022 End: 02-10-2022 /[facility] Procedure Note: See Note; NOTES: [facility] [address] [place] [address] OFFICE VISIT Date of Service: 02/09/22 MR#: [id number] Acct: [id number] Name: MARTIN CASTELLANOS LUZ Rep #: [id number] : 1995 Provider: MARIANELA vega Age/Sex: 26/F [place] [facility] Status: Signed Intake Vital Signs 02/04/22 07:12 Height 5 ft 4 in Intake Visit Reasons: Feeding Assessment/Nipple Soreness Chief Complaint: assessment, nipple pain Accompanied by: Allergies Penicillins Allergy (Intermediate, Verified 02/04/22 08:35) Hives : Yes Current gender identity: female PFSH [facility] Medical History COVID-19 vaccine series completed Surgical History H/O wisdom tooth extraction Family History Mother Hypertension Grandmother Breast cancer Grandmother Hypertension Social History household members: spouse housing: house 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 [place] [address] OFFICE VISIT Date of Service: 02/03/22 MR#: [id number] Acct: [id number] Name: MARTIN CASTELLANOS Rep #: [id number] : 1995 Provider: Dr. 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 [place] [address] OFFICE VISIT Date of Service: 01/27/22 MR#: [id number] Acct: [id number] Name: MARTIN CASTELLANOS Rep #: [id number] : 1995 Provider: Dr. 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: Yes Smoking Status: [...] Signature: Date (if applicable) CC: Kiya Greer DRAMA CRITIC Work Phone: Start: 01-17-2022 Ultrasound scan for growth CITY ENGINEER-C Sowmya Rodriguezfranky MARIANELA Work Phone: Start: 01-17-2022 End: 01-18-2022 OB Limited With Biometrics Procedure Note: See Note; NOTES: [facility] Imaging Services [address] [place] [address] OB Limited With Biometrics MR#: [id number] Acct: [id number] Name: MARTIN CASTELLANOS Rep #: [id number] : 1995 F 26 From: Levi Portillo MD PCP: LUCINDA Wesley Status: REG CLI Study: OB Limited With Biometrics Date of Exam: 01/17 Exam# [id number] Ordering Dr: Dorothy Lee STUDY: SECOND AND [...] CC: LUCINDA Greer; Dr. Dorothy Lee MD Clinical Assistant: Signed Kiya Greer [facility] Work Phone: Start: 01-17-2022 End: 01-17-2022 Audiometric Technician Office Visit Report Comments: See Note; NOTES: [facility] [address] [place] [address] OFFICE VISIT Date of Service: 01/17/22 MR#: [id number] Acct: [id number] Name: MARITN CASTELLANOS Rep #: [id number] : 1995 Provider: Dr. 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 [place] [address] OFFICE VISIT Date of Service: 01/11/22 MR#: [id number] Acct: [id number] Name: MARTIN CASTELLANOS Rep #: [id number] : 1995 Provider: Dr. 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 [address] Echo Complete 01/04/22 1102 MR#: [id number] Acct: [id number] Name: MARTIN CASTELLANOS Rep #: [id number] : 1995 26 From: Kirk Lemon MD Attending Dr: Dr. Kirk Lemon MD Status: FAVIO RODRIGUEZ Ordering Dr: Kirk Lemon MD Date: 01/04/22 Location: [facility] Sex: F C Admitted: Reason For Study: [...] 01/04/22 1619 Date Kirk Lemon MD CC: CITY ENGINEER-C Kiya Greer; Dr. Kirk Lemon MD Date Dictated: 01/04/22 1102 Date Transcribed: 01/04/221618 Clinical Assistant: Signed Kiya Greer CNP Work Phone: Start: 01-02-2022 End: 01-02-2022 Audiometric Technician Office Visit Report Comments: See Note; NOTES: [facility] [address] [place] [address] OFFICE VISIT Date of Service: 01/02/22 MR#: [id number] Acct: [id number] Name: MARTIN CASTELLANOS Rep #: [id number] : 1995 Provider: Dr. 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 [place] [address] OFFICE VISIT Date of Service: 12/27/21 MR#: [id number] Acct: [id number] Name: MARTIN CASTELLANOS Rep #: [id number] : 1995 Provider: Dr. 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: Yes Smoking Status: [...] system Z82.79 tachycardia CPT Codes Non-Stress Test (42267) Assessment and Plan Assessment and Plan (1) [...] Signature: Date (if applicable) CC: Kiya Greer DRAMA CRITIC Work Phone: Start: 12-14-2021 End: 12-17-2021 12 Lead EKG Comments: See Note; NOTES: [facility] Cardiovascular Services [address] [place] [address] 12 Lead EKG 12/14/21 1106 MR#: [id number] Acct: [id number] Name: MARTIN CASTELLANOS Rep #: [id number] : 1995 From: Kristopher Castillo MD Attending [...] normal ECG Confirmed by FIOR URBINA, KRISTOPHER ([id number]), television news video editor ANGELA HSU ([id number]) on 12/17/2021 9:42:28 AM Referred By: John Confirmed By:KRISTOPHER CASTILLO MD 12/17/21 0942 Date Kristopher Castillo MD CC: KARINAC Sowmya Baldwin; Dr. Kristopher Lopez MD Signed Kiya Greer CNP Work Phone: Start: 12-14-2021 End: 12-14-2021 Emergency Department Summary Comments: See Note; NOTES: [facility] Medical Records Department [address] [place] [address] Emergency Department Summary 12/14/21 MR#: [id number] Acct: [id number] Name: MARTIN CASTELLANOS Rep #: [id number] : 1995 From: Kristopher Lopez MD PCP: [...] and otherwise she has no other symptoms. 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 I talked to HOSPICE MUS[facility] THERAPY, Dr. Palomo Sloan as well as Dr. [...] 75.7 H Lymph % (Auto) 15.3 L [place] % (Auto) 6.1 Eos % (Auto) 0.5 [...] Clarity Clear Urine pH 6.5 Ur Specific [place] 1.010 Urine Protein Negative Urine Glucose (UA) [...] PHYSICIAN] - 3-5 Days Sowmya Baldwin NP, CITY ENGINEER-C [Primary Care Provider] - Disposition Disposition: Home, Self Care What to do if you have Problems For any increased pain, shortness of breath, bleeding, nausea or vomiting, chest pain, or any unexpected problems, contact your Primary Care Provider. Call [facility] ([phone]) or report to the closest Emergency Room. Call 911 if necessary. 12/14/21 1256 <Electronically signed by Kristopher Lopez MD> Cosigner Signature (if applicable): CC: CITY ENGINEERJuanita Baldwin Signed Sowmya Baldwin Work Phone: Start: 12-08-2021 End: 12-08-2021 Audiometric Technician Office Visit Report Comments: See Note; NOTES: [facility] [address] [place] [address] OFFICE VISIT Date of Service: 12/08/21 MR#: [id number] Acct: [id number] Name: MARTIN CASTELLANOS Rep #: [id number] : 1995 Provider: Dr. 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 [place] [address] OFFICE VISIT Date of Service: 11/25/21 MR#: [id number] Acct: [id number] Name: MARTIN CASTELLANOS Rep #: [id number] : 1995 Provider: Dr. 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 [address] [place] [address] OFFICE VISIT Date of Service: 11/08/21 MR#: [id number] Acct: [id number] Name: MARTIN CASTELLANOS Rep #: [id number] : 1995 Provider: Dr. 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 [place] [address] OFFICE VISIT Date of Service: 09/23/21 MR#: [id number] Acct: [id number] Name: MARTIN CASTELLANOS Rep #: [id number] : 1995 Provider: Dr. 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 [place] [address] OFFICE VISIT Date of Service: 08/23/21 MR#: [id number] Acct: [id number] Name: MARTIN CASTELLANOS Rep #: [id number] : 1995 Provider: Dr. 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 [place] [address] OFFICE VISIT Date of Service: 07/26/21 MR#: [id number] Acct: [id number] Name: MARTIN CASTELLANOS Rep #: [id number] : 1995 Provider: Dr. 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: Yes Smoking Status: [...] Status: Acute Comment: ANJEL: 02/04/22 Spouse: Itz (5) Asthma: Status: Acute Comment: as a child (6) Seasonal allergies: Status: Acute Comment: takes PRN OTC allergy medication Plan Details Other Orders: Orders: POC Urinalysis 2 Dip (Clinic) Today 07/26/21 0942 <Electronically signed by Rose Mahmood DO> Date Rose Mahmood DO Cosigner Signature: Date (if applicable) CC: Sowmya Baldwin Work Phone: Start: 06-30-2021 Urine culture CITY ENGINEER-C Sowmya Baldwin CITY ENGINEER Work Phone: Start: 06-30-2021 End: 06-30-2021 Audiometric Technician Office Visit Report Comments: See Note; NOTES: [facility] [address] [place] [address] OFFICE VISIT Date of Service: 06/30/21 MR#: [id number] Acct: [id number] Name: MARTIN CASTELLANOS Rep #: [id number] : 1995 Provider: Dr. 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 [facility] book offered to patient. Discussed routine and [...] Work Phone: Group B Streptococcu s Culture CITY ENGINEER-C Sowmya Baldwin CITY ENGINEER Work Phone: Viral antigen assay CITY ENGINEER-C Prema Baldwin CITY ENGINEER Work Phone: Plan of Treatment Date Care Activity Detail Author Start: 04-06-2025 Patient encounter procedure Registered Clinical -Laboratory Specimen Work Phone: Start: 04-06-2025 End: 04-06-[address] [facility] Work Phone: Start: 04-06-2025 Group B Streptococcus Culture Group B Streptococcus Culture [facility] Start: 04-06-2025 Streptococcus agalactiae [Presence] in Unspecified specimen by Organism specific culture [facility] Start: 01-26-2025 CBC W Auto Differential panel - Blood [facility] Start: 01-26-2025 Measurement of glucose 2 hours after glucose challenge for glucose tolerance test [facility] Start: 01-26-2025 Serologic test for syphilis [facility] Start: 01-26-2025 [facility] Start: 11-05-2024 CBC W Auto Differential panel - Blood [facility] Start: 11-05-2024 Hepatitis C antibody measurement [facility] Start: 11-05-2024 Rubella IgG measurement [facility] Start: 11-05-2024 Serologic test for syphilis [facility] Start: 11-05-2024 [facility] Start: 09-19-2022 Procedure Education Eprescribed prescriptions (G8553) [facility] Work Phone: Start: 09-19-2022 Provider Instructions for Treatment Follow up as needed [facility] Work Phone: Start: 02-06-2022 Patient discharge [facility] Work Phone: Start: 02-05-2022 Administration of medication [facility] Work Phone: Start: 02-05-2022 Application of ice collar, cap or bag [facility] Work Phone: Start: 02-05-2022 Catheterization of vein [facility] Work Phone: Start: 02-05-2022 Introduction of urinary catheter [facility] Work Phone: Start: 02-05-2022 Measuring intake and output [facility] Work Phone: Start: 02-05-2022 Notification of physician [facility] Work Phone: Start: 02-05-2022 Procedure discontinued [facility] Work Phone: Start: 02-05-2022 Provision of activity privileges [facility] Work Phone: Start: 02-05-[address] [facility] Work Phone: Start: 02-05-2022 [facility] Work Phone: Start: 02-04-2022 Admission procedure [facility] Work Phone: Start: 12-14-2021 Ambulatory ECG [facility] Work Phone: Start: 08-09-2020 Procedure Education Eprescribed prescriptions (G8553) [facility] Work Phone: Start: 08-09-2020 Provider Instructions for Treatment [facility] Work Phone: Start: 08-09-2020 Hpv, dna, amp probe HPV Auto Reflex PAP (72468) [facility] Work [...] streptococcus group a Rapid Strep Test, Office (69565) [facility] Work Phone: Start: 05-23-2017 S. pyogenes Ag IA Ql (Unsp spec) Rapid Strep Test, Office (17316) [facility] Work Phone: Start: 08-25-2016 Provider Instructions for Treatment [facility] Work Phone: Start: 08-25-2016 Cytp c/v auto thin lyr prepj scr mnl rescr phys Pap - GC Chlamydia (05162) [facility] Work Phone: Beta-hemolytic Streptococcus culture [facility] CBC W Auto Different ial panel - Blood [facility] Erythrocyte mean corpuscular volume determination [facility] Erythrocyte mean corpuscular volume determination [facility] Hematocrit [Volume Fraction] of Blood [facility] Hematocrit [Volume Fraction] of Blood [facility] Hemoglobin [Mass/vol ume] in Blood [facility] Hemoglobin [Mass/vol ume] in Blood [facility] Hepatitis B virus mcclelland rface Ag [Presence] in Serum [facility] Hepatitis C antibody measurement [facility] Leukocytes [#/volume ] in Blood [facility] Leukocytes [#/volume ] in Blood [facility] Mean corpuscular hemoglobin concentration determination [facility] Mean corpuscular hemoglobin concentration determination [facility] Mean corpuscular hemoglobin determination [facility] Mean corpuscular hemoglobin determination [facility] Neutrophil count [facility] Neutrophil count [facility] Neutrophil percent differential count [facility] Neutrophil percent differential count [facility] Patient Education [facility] Work Phone: Patient referral [facility] Work Phone: Platelets [#/volume] in Blood [facility] Platelets [#/volume] in Blood [facility] Red blood cell count [facility] Red blood cell count [facility] Red cell distributio n width determination [facility] Red cell distributio n width determination [facility] Rubella IgG measurement [facility] Serologic test for syphilis [facility] Work Phone: [facility] Work Phone: [facility] Immunizations Immunization Date Immunization Notes Care Provider Junior storm 02-11-2025 tetanus toxoid, redu miller diphtheria toxoid, and acellular pertussis vaccine, adsorbed Kiya Greer CITY ENGINEER-C Work Phone: [facility] 10-26-2021 tetanus toxoid, redu miller diphtheria toxoid, and acellular pertussis vaccine, adsorbed CITY ENGINEER-C Sowmya Baldwin NP Work Phone: [facility] 10-26-2021 diphtheria, tetanus toxoids and acellular pertussis vaccine, unspecified formulation CITY ENGINEER-C Sowmya Baldwin CITY ENGINEER Work Phone: [facility] Work Phone: Payers Date Payer Category Payer Private Health Insurance [id number] 2024 Private Health Insurance [id number] 2024 Unknown [id number] 2024 Self-pay [id number] 2022 Unknown [id number] 2020 Unknown [id number] 1995 Unknown [id number] 2.16.84 0.1.322223.3.579.2.716 1995 Unknown [id number] 2.16. 840.1.050157.3.579.2.479 1995 Unknown [id number] 2.16. 840.1.529056.3.579.2.479 Unknown Unknown [id number] 2.16.8 40.1.960204.3.579.2.462 Unknown [id number] 2.16.8 40.1.978067.3.579.2.462 Unknown [id number] 2.16.8 40.1.326329.3.579.2.462 Unknown [id number] 2.16.8 40.1.044721.3.579.2.462 Unknown [id number] 2.16.8 40.1.714934.3.579.2.462 Unknown [id number] 2.16.8 40.1.374238.3.579.2.462 Unknown [id number] 2.16.8 40.1.260691.3.579.2.462 Unknown [id number] 2.16.8 40.1.023866.3.579.2.462 Unknown [id number] 2.16.8 40.1.940284.3.579.2.462 Unknown [id number] 2.16.8 40.1.672234.3.579.2.462 Unknown [id number] 2.16.8 40.1.527385.3.579.2.462 Unknown [id number] 2.16.8 40.1.982985.3.579.2.462 Unknown [id number] 2.16.8 40.1.077622.3.579.2.462 Unknown [id number] 2.16.8 40.1.247409.3.579.2.462 Unknown [id number] 2.16.8 40.1.967886.3.579.2.462 Unknown [id number] 2.16.8 40.1.104219.3.579.2.462 Unknown [id number] 2.16.8 40.1.714509.3.579.2.462 Unknown [id number] 2.16.8 40.1.076949.3.579.2.462 Unknown [id number] 2.16.8 40.1.521256.3.579.2.462 Unknown [id number] 2.16.8 40.1.307902.3.579.2.462 Social History Date Type Detail Facility Caffeine use Caffeine use [facility] Work Phone: Comment on above: 3 cups coffee daily Living Situation: Living Situation: [facility] Work Phone: Living Situation: Living Situation: Compr e[facility]; [facility] Work Phone: Start: 10-26-2021 End: 02-04-2022 Tobacco smoking status NHIS Unknown if ever smoked [facility] Work Phone: Start: 1995 Sex Assigned At Female [facility] Living Situation: Living Situation: Compr ehensive Internal Medicine; [facility] Work Phone: Comment on above: one child Start: 09-19-2024 Tobacco smoking status NHIS Never smoked tobacco (finding) [facility] Start: 10-01-2024 Sex Female (finding) [facility] Sex Female [facility] Goals Date Patient Goal Desired Activity /State Mental Status Date Assessment Result Facility 12-14-2021 Cognitive function Level Of Cons ciousness Awake;Alert;Appropriate;Follow s Commands;Responds to vocal stimuli [facility] Work Phone: Clinical Notes 09-29-2024 to 03-23-2025 Note Date & Type Note Facility 03-23-2025 Progress note [facility] 03-09-2025 Progress note [facility] 02-25-2025 Progress note [facility] 02-11-2025 Progress note [facility] 01-26-2025 Progress note [facility] 12-31-2024 Evaluation note Diagnosis Onset Date [...] Supervision of normal acute April 06 2:13pm [facility] Work Phone: 1(887) 110-440006-23-2025 Evaluation note* Diagnosis Onset Date Resolution Status [...] of normal acute March 09, 2025 9:23am [facility] Work Phone: 1(716) 383-391006-23-2025 Progress [facility] [address] [place] [address], [address] [place] [address] OFFICE VISIT Date of Service: 12/01/24 MR#: [id number] Acct: [id number] Name: MARTIN CASTELLANOS Rep #: [id number] : 1995 Provider: Dr. Vishnu Lee MD Age/Sex: 29/F Location: [facility] Status: Signed Intake Vital Signs 09/29/24 10:27 11/05/24 08:44 12/01/24 10:16 Height 5 ft 4 in 5 ft 4 in 5 ft 4 in Weight: 181 lb 4 oz BMI 31.1 BP 137/73 H Intake Visit Reasons: 18 wk ob Technology Intern Required: No Is patient in pain?: No [...] 1 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al status: employed 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: [employer] ENGINE[employer] pets and animals: Yes pets [...] times per week duration: 30-45 minutes/day juan alberto/oriental orthodox: Faith seatbelt use: always do you feel safe [...] - full term 8#3oz Female epidu ral [facility] Dorothy Mobley Delivery Date: 02/05/22 Last Updated [...] Cosigner Signature: Date (if applicable) CC: ~ [facility]05-28-2025 Evaluation note* Diagnosis Onset Date Resolution [...] normal acut e January 26, 2025 9:03am [facility] Work Phone: 1(481) 702-697905-28-2025 Evaluation note* Diagnosis Onset Date Resolution Status [...] Supervision of normal acute February 11 9:38am [facility] Work Phone: 1(755) 924-781205-28-2025 Evaluation note* Diagnosis Onset Date Resolution Status [...] of normal acute February 25, 2025 9:15am [facility] Work Phone: 1(626) 256-720605-28-2025 Progress [facility] [address] [place] [address], [address] [place] [address] OFFICE VISIT Date of Service: 11/05/24 MR#: [id number] Acct: [id number] Name: MARTIN CASTELLANOS Rep #: [id number] : 1995 Provider: Dr. Marina Mahmood DO Age/Sex: 28/F Location: [facility] Status: Signed Intake Vital Signs 08/27/24 13:56 09/29/24 10:27 11/05/24 08:41 11/05/24 08:44 Height 5 ft 4 in 5 ft 4 in 5 ft 4 in 5 ft 4 in Weight: 179 lb 2 oz BMI 30.7 BP 125/85 H Intake Visit Reasons: 14wk OB Technology Intern Required: No Is patient in pain?: No [...] 1 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al status: employed 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: [employer] pets and animals: Yes pets [...] times per week duration: 30-45 minutes/day juan alberto/oriental orthodox: Faith seatbelt use: always do you feel safe [...] - full term 8#3oz Female epidu ral [facility] Dorothy Mobley Delivery Date: 02/05/22 Last Updated by: Ruthie Costello see problem list for complications, and 41 IOL postdates sm girl mihcael atony HPI 14wk OB Details: MARTIN CASTELLANOS [...] Kohli Signature: Date (if applicable) CC: ~ [facility]04-21-2025 Evaluation note* Diagnosis Onset Date Resolution Status Admit Date Anxiety acute September 29 10:06am Depression acute September 29 10:06am History of atony of uterus acute September 29, 2024 10:06am acute September 29 10:06am Supervision of normal acut e September 29, 2024 10:06am [facility] Work Phone: 1(250) 824-974004-21-2025 Evaluation note* Diagnosis Onset Date Resolution Status [...] normal acut e November 05, 2024 8:39am [facility] Work Phone: 1(169) 845-841704-21-2025 Evaluation note* Diagnosis Onset Date Resolution Status [...] normal acut e December 01, 2024 10:07am [facility] Work Phone: 1(632) 215-217704-21-2025 Evaluation note* Diagnosis Onset Date Resolution Status [...] normal acut e December 31, 2024 8:34am [facility] Work Phone: 1(560) 111-453904-21-2025 Evaluation note* Diagnosis Onset Date Resolution Status [...] normal acut e January 26, 2025 9:03am [facility] Work Phone: Evaluation note* Diagnosis Onset [...] Seasonal allergies acute Supervision of normal acute [facility] Work Phone: Evaluation note* Diagnosis Onset Date [...] Seasonal allergies acute Supervision of normal acute [facility] Work Phone: Evaluation note* Diagnosis Onset Date [...] of congenital anomaly of cardiovascular system resolved [facility] Work Phone: Evaluation note* Diagnosis Onset Date [...] Seasonal allergies resolved Supervision of normal resolved [facility] Work Phone: Instructions* Name Dates Details Patient Instructions Indication:Well woman exam (Renamed from Encounter for well woman exam) Start:09-Aug-2020 Instruction Type:Provider Instructions for Treatment How to Access Health Informa tion Online using Patient Portal and [employer] Apps Indication:Well woman exam (Renamed from Encounter [...] Informa tion Online using Patient Portal and [employer] Apps Indication:Well woman exam (Renamed from Encounter [...] Informa tion Online using Patient Portal and [employer] Indication:Well woman exam (Renamed from Encounter [...] Informa tion Online using Patient Portal and [employer] Apps Indication:Well woman exam (Renamed from Encounter [...] Informa tion Online using Patient Portal and [employer] Apps Indication:Well woman exam (Renamed from Encounter [...] Informa tion Online using Patient Portal and [employer] Apps Indication:Well woman exam (Renamed from Encounter [...] Informa tion Online using Patient Portal and [employer] Indication:Nonsmoker Start:19-Sep-2022 Instruction Type:Patient Education Patient Instructions Indication:Well woman exam (Renamed from Encounter for well woman exam) Start:09-Aug-2020 Instruction Type:Provider Instructions for Treatment How to Access Health Informa tion Online using Patient Portal and [employer] Apps Indication:Well woman exam (Renamed from Encounter [...] Informa tion Online using Patient Portal and [employer] Indication:Nonsmoker Start:19-Sep-2022 Instruction Type:Patient Education Patient Instructions [...] Work Phone: progress note Author Rose Man [facility] Note Date/Time November 05, 2024 9:04a [facility] [address], [address] [place] [address] OFFICE VISIT Date of Service: 11/05/24 MR#: [id number] Acct: [id number] Name: MARTIN CASTELLANOS Rep #: [id number] : 1995 Provider: Dr. Marina Mahmood, Age/Sex: 28/F Location: [facility] Status: Signed Intake Vital Signs 08/27/24 13:56 09/29/24 10:27 11/05/24 08:41 11/05/24 08:44 Height 5 ft 4 in 5 ft 4 in 5 ft 4 in 5 ft 4 in Weight: 179 lb 2 oz BMI 30.7 BP 125/85 H Intake Visit Reasons: 14wk OB Technology Intern Required: No Is patient in pain?: No [...] 1 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al status: employed 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: [employer] pets and animals: Yes pets [...] times per week duration: 30-45 minutes/day juan alberto/oriental orthodox: Faith seatbelt use: always do you feel safe [...] Cosigner Signature: Date (if applicable) CC: ~ [facility] Work Phone: Progress note Author Dorothy Lee [facility] Note Date/Time December 01, 2024 10:5 5am [facility] [address] [place] [address], [address] [place] [address] OFFICE VISIT Date of Service: 12/01/24 MR#: [id number] Acct: [id number] Name: MARTIN CASTELLANOS Rep #: [id number] : 1995 Provider: Dr. Vishnu Lee MD Age/Sex: 29/F Location: [facility] Status: Signed Intake Vital Signs 09/29/24 10:27 11/05/24 08:44 12/01/24 10:16 Height 5 ft 4 in 5 ft 4 in 5 ft 4 in Weight: 181 lb 4 oz BMI 31.1 BP 137/73 H Intake Visit Reasons: 18 wk ob Technology Intern Required: No Is patient in pain?: No [...] 1 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al status: employed 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: [employer] pets and animals: Yes pets [...] times per week duration: 30-45 minutes/day juan alberto/oriental orthodox: Faith seatbelt use: always do you feel safe [...] - full term 8#3oz Female epidu ral [facility] Dorothy Mobley Delivery Date: 02/05/22 Last Updated [...] Cosigner Signature: Date (if applicable) CC: ~ [facility] Work Phone: Progress note Author Dorothy Lee [facility] Note Date/Time January 26, 2025 10 :02am [facility] [address], [address] [place] [address] OFFICE VISIT Date of Service: 01/26/25 MR#: [id number] Acct: [id number] Name: MARTIN CASTELLANOS Rep #: [id number] : 1995 Provider: Dr. Vishnu Lee MD Age/Sex: 29/F Location: [facility] Status: Signed Intake Vital Signs 12/01/24 10:16 12/31/24 08:38 01/26/25 09:18 Height 5 ft 4 in 5 ft 4 in 5 ft 4 in Weight: 197 lb 2 oz BMI 33.8 BP 131/76 H Intake Visit Reasons: 26 wk ob/glucose Technology Intern Required: No Is patient in pain?: No [...] 1 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al status: employed 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: [employer] pets and animals: Yes pets [...] times per week duration: 30-45 minutes/day juan alberto/oriental orthodox: Faith seatbelt use: always do you feel safe [...] - full term 8#3oz Female epidu ral [facility] Dorothy Mobley Delivery Date: 02/05/22 Last Updated [...] Cosigner Signature: Date (if applicable) CC: ~ [facility] Work Phone: Progress note Author Rose Man [facility] Note Date/Time February 11, 2025 10:14am [facility] [address], [address] [place] [address] OFFICE VISIT Date of Service: 02/11/25 MR#: [id number] Acct: [id number] Name: MARTIN CASTELLANOS Rep #: [id number] : 1995 Provider: Dr. Marina Mahmood, Age/Sex: 29/F Location: [facility] Status: Signed Intake Vital Signs 12/01/24 10:16 01/26/25 09:18 02/11/25 09:39 02/11/25 09:41 Height 5 ft 4 in 5 ft 4 in 5 ft 4 in 5 ft 4 in Weight: 200 lb 2 oz BMI 34.3 BP 127/80 H Intake Visit Reasons: 28 wk ob Technology Intern Required: No Is patient in pain?: No [...] 1 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al status: employed 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: [employer] pets and animals: Yes pets [...] times per week duration: 30-45 minutes/day juan alberto/oriental orthodox: Faith seatbelt use: always do you feel safe [...] - full term 8#3oz Female epidu ral [facility] Dorothy Mobley Delivery Date: 02/05/22 Last Updated [...] Performing Provider: Rose Mahmood DO Performing Location: [facility] Administered by: Angelina Blanco on 02/11/25 09:56 Dose Route Admin Location Dispensed Lot Number Expiration Date NDC Bumper Machine Operator 0.5 mL IM Right Deltoid 0.5 mL [id number] 02/08/27 51246-546-32 JOSE FI-PASTEUR VIS Given Date VIS Provided [...] Bhupinderignjoe Signature: Date (if applicable) CC: ~ [facility] Work Phone: Progress note Author Dorothy Lee [facility] Note Date/Time February 25, 2025 10:19am [facility] [address], [address] [place] [address] OFFICE VISIT Date of Service: 02/25/25 MR#: [id number] Acct: [id number] Name: MARTIN CASTELLANOS Rep #: [id number] : 1995 Provider: Dr. Vishnu Lee MD Age/Sex: 29/F Location: [facility] Status: Signed Intake Vital Signs 12/31/24 08:38 02/11/25 09:41 02/25/25 09:45 Height 5 ft 4 in 5 ft 4 in 5 ft 4 in Weight: 201 lb 4 oz BMI 34.5 BP 131/82 H Intake Visit Reasons: 30 WK OB Technology Intern Required: No Is patient in pain?: No [...] 1 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al status: employed 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: [employer] pets and animals: Yes pets [...] times per week duration: 30-45 minutes/day juan alberto/oriental orthodox: Faith seatbelt use: always do you feel safe [...] - full term 8#3oz Female epidu ral [facility] Dorothy Mobley Delivery Date: 02/05/22 Last Updated [...] Cosigner Signature: Date (if applicable) CC: ~ [facility] Work Phone: Progress note Author Rose Man [facility] Note Date/Time March 09, 2025 10:07am [facility] [address], [address] [place] [address] OFFICE VISIT Date of Service: 03/09/25 MR#: [id number] Acct: [id number] Name: MARITN CASTELLANOS Rep #: [id number] : 1995 Provider: Dr. Marina Mahmood DO Age/Sex: 29/F Location: [facility] Status: Signed Intake Vital Signs 12/31/24 08:38 02/25/25 09:45 03/09/25 09:27 Height 5 ft 4 in 5 ft 4 in 5 ft 4 in Weight: 203 lb 6 oz BMI 34.9 BP 119/79 Intake Visit Reasons: 32 WK OB Chief Complaint: 32wk OB Technology Intern Required: No Is patient in pain?: No [...] 1 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al status: employed 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: [employer] pets and animals: Yes pets [...] times per week duration: 30-45 minutes/day juan alberto/oriental orthodox: Faith seatbelt use: always do you feel safe [...] - full term 8#3oz Female epidu ral [facility] Dorothy Jesus [employer] Delivery Date: 02/05/22 Last [...] Cosigner Signature: Date (if applicable) CC: ~ [facility] Work Phone: Progress note Author Suzanne Salazar [facility] Note Date/Time March 23, 2025 1 :54pm [facility] [address] [place] [address], [address] [place] [address] OFFICE VISIT Date of Service: 03/23/25 MR#: [id number] Acct: [id number] Name: MARTIN CASTELLANOS Rep #: [id number] : 1995 Provider: LUCINDA Salazar Age/Sex: 29/F Location: [facility] Status: Signed Intake Vital Signs 02/11/25 09:41 03/09/25 09:27 03/23/25 13:40 Height 5 ft 4 in 5 ft 4 in 5 ft 4 in Weight: 207 lb 1 oz BMI 35.5 BP 112/81 H Intake Visit Reasons: 34wk ob Technology Intern Required: No Is patient in pain?: No [...] 1 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al status: employed 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: [employer] pets and animals: Yes pets [...] times per week duration: 30-45 minutes/day juan alberto/oriental orthodox: Faith seatbelt use: always do you feel safe [...] - full term 8#3oz Female epidu ral [facility] Dorothy Mobley Delivery Date: 02/05/22 Last Updated [...] Continue routine care and follow up. 03/23/25 [id number] <Electronically signed by Suzanne saldana CITY ENGINEER CITY ENGINEER-C> Date _ Suzanne Salazar CITY ENGINEER CITY ENGINEER-C Cosigner Signature: Date (if applicable) CC: ~ [facility] Work Phone: Reason for referral (narrative)No reason for referral [facility] Work Phone: Family History No Family [...] Informa tion Online using Patient Portal and [employer] Apps Indication:Well woman exam (Renamed from [...] December 14, 2021 1 1:16am Power of Yarn Mercerizer Operator No December 14, 2021 11:16am Advance Directive Response Recorded Date/ Time Living Will No February 04 7:47am Power of Yarn Mercerizer Operator No February 04 022 7:47am Chief Complaint [...] February 11, 2025 9:38am Supervision of normal [facility] 2024 9:38am Anxiety February [...] 2025 9:38am Supervision of normal [facility] 2024 9:38am Anxiety February 25, 2025 9:15am Depression February 25, 2025 9:15am Family history of transposition of great vessels February 25, 2025 9:15am History of atony of uterus Se ptember 2024 9:15am February 25, 2025 9:15am [facility] 9:15[facility] Anxiety March 09, 2025 9:23am Depression March 09, 2025 9:23am Family history of transposition of great vessels March 09, 2025 9:23am History of atony of uterus Se ptember 2024 9:23am March 09, 2025 9:23am [facility] 2024 9:23am Chief Complaint Admit Date [...] 2025 9:38am Supervision of normal [facility] r 2024 9:38am Anxiety February 25, 2025 [...] section and content) DATE CREATED AUTHOR 07/15/2021 [facility] DATE CREATED AUTHOR AUTHOR'S ORGANIZ ATION 09/19/2022 [facility] DATE CREATED AUTHOR AUTHOR'S ORGANIZ ATION 07/23/2024 [facility] DATE CREATED AUTHOR AUTHOR'S ORGANIZ ATION 12/18/2024 [facility] DATE CREATED AUTHOR AUTHOR'S ORGANIZ ATION 04/21/2025 [facility] Goals (unrecognized section and content) Type [...] Member Role Status Dates Kiya Percy , CITY ENGINEER-C Primary Care Provider Active Start: November 05, 2024 End: November 05, 2024 Dr. Rose Mahmood DO Attending Provider Activ e Start: November 05, 2024 End: November 05, 2024 Dr. Rose Mahmood DO Referring Provider Activ e Start: November 05, 2024 End: November 05, 2024 Team Status: Inactive Member Role Status Dates Kiya Greer , CITY ENGINEER-C Primary Care Provider Active Start: December 01, 2024 End: December 01, 2024 Kiya Greer , CITY ENGINEER-C Referring Provider Active Start: December 01, 2024 End: December 01, 2024 Dr. Dorothy Lee MD Attending Provider Active Start: December 01, 2024 End: December 01, 2024 Team Status: Active Member Role/Relationship Status Dates Kiya Greer , CITY ENGINEER-C Primary Care Provider Active Team Status: Inactive Member Role/Relationship Status Dates Kiya Greer , CITY ENGINEER-C Primary Care Provider Active Start: September 29, 2024 End: September 29, 2024 Kiya Greer CITY ENGINEER-C Referring Provider Active Start: September 29, 2024 End: September 29, 2024 Dr. Dorothy Lee MD Attending Provider Active Start: September 29, 2024 End: September 29, 2024 Team Status: Inactive Member Role/Relationship Status Dates Kiya Greer CITY ENGINEER-C Primary Care Provider Active Start: September 29, 2024 End: September 29, 2024 Dr. Dorothy Lee MD Attending Provider Active Start: September 29, 2024 End: September 29, 2024 Dr. Dorothy Lee MD Referring Provider Active Start: September 29, 2024 End: September 29, 2024 Team Status: Inactive Member Role/Relationship Status Dates Kiya Greer , CITY ENGINEER-C Primary Care Provider Active Start: November 05, 2024 End: November 05, 2024 Kiya Greer CITY ENGINEER-C Referring Provider Active Start: November 05, 2024 End: November 05, 2024 Dr. Rose Mahmood DO Attending Provider Activ e Start: November 05, 2024 End: November 05, 2024 Team Status: Inactive Member Role/Relationship Status Dates Kiya Greer , CITY ENGINEER-C Primary Care Provider Active Start: November 05, 2024 End: November 05, 2024 Dr. Rose Mahmood DO Attending Provider Activ e Start: November 05, 2024 End: November 05, 2024 Dr. Rose Mahmood DO Referring Provider Activ e Start: November 05, 2024 End: November 05, 2024 Team Status: Inactive Member Role/Relationship Status Dates Kiya Greer CITY ENGINEER-C Primary Care Provider Active Start: December 01, 2024 End: December 01, 2024 Kiya Greer CITY ENGINEER-C Referring Provider Active Start: December 01, 2024 End: December 01, 2024 Dr. Dorothy Lee MD Attending Provider Active Start: December 01, 2024 End: December 01, 2024 Team Status: Inactive Member Role/Relationship Status Dates Kiya Greer CITY ENGINEER-C Primary Care Provider Active Start: December 31, 2024 End: December 31, 2024 Kiya Greer CITY ENGINEER-C Referring Provider Active Start: December 31, 2024 End: December 31, 2024 Dr. Rose Mahmood DO Attending Provider Activ e Start: December 31, 2024 End: December 31, 2024 Team Status: Inactive Member Role/Relationship Status Dates Kiya Greer CITY ENGINEER-C Primary Care Provider Active Start: January 26, 2025 End: January 26, 2025 Kiya Greer [employer] ENGINEER-C Referring Provider Active Start: January 26, 2025 End: January 26, 2025 Dr. Dorothy Lee MD Attending Provider Active Start: January 26, 2025 End: January 26, 2025 Team Status: Active Member Role/Relationship Status Dates Kiya Greer [employer] ENGINEER-C Primary Care Provider Active Start: January 26, 2025 Ranjana Neil CNM Attending Provider Active S tart: January 26, 2025 Ranjana Neil CNM Referring Provider Active S tart: January 26, 2025 Team Status: Inactive Member Role/Relationship Status Dates Kiya Greer [employer] ENGINEER-C Primary Care Provider Active Start: November 05, 2024 End: November 05, 2024 Kiya Greer [employer] ENGINEER-C Referring Provider Active Start: November 05, 2024 End: November 05, 2024 Dr. Rose Mahmood DO Attending Provider Activ e Start: November 05, 2024 End: November 05, 2024 Team Status: Inactive Member Role/Relationship Status Dates Kiya Greer , CITY ENGINEER-C Primary Care Provider Active Start: November 05, 2024 End: November 05, 2024 Dr. Rose Mahmood , Attending Provider Activ e Start: November 05, 2024 End: November 05, 2024 Dr. Rose Mahmood , Referring Provider Activ e Start: November 05, 2024 End: November 05, 2024 Team Status: Inactive Member Role/Relationship Status Dates Kiya Greer , CITY ENGINEER-C Primary Care Provider Active Start: December 01, 2024 End: December 01, 2024 Kiya Greer [employer] ENGINEER-C Referring Provider Active Start: December 01, 2024 End: December 01, 2024 Dr. Dorothy Lee MD Attending Provider Active Start: December 01, 2024 End: December 01, 2024 Team Status: Inactive Member Role/Relationship Status Dates Kiya Greer , [employer] ENGINEER-C Primary Care Provider Active Start: December 31, 2024 End: December 31, 2024 Kiya Greer , CITY ENGINEER-C Referring Provider Active Start: December 31, 2024 End: December 31, 2024 Dr. Rose Mahmood , Attending Provider Activ e Start: December 31, 2024 End: December 31, 2024 Team Status: Inactive Member Role/Relationship Status Dates Kiya Greer , [employer] ENGINEER-C Primary Care Provider Active Start: January 26, 2025 End: January 26, 2025 Kiya Greer [employer] ENGINEER-C Referring Provider Active Start: January 26, 2025 End: January 26, 2025 Dr. Dorothy Lee MD Attending Provider Active Start: January 26, 2025 End: January 26, 2025 Team Status: Inactive Member Role/Relationship Status Dates Kiya Greer [employer] ENGINEER-C Primary Care Provider Active Start: January 26, 2025 End: January 26, 2025 Ranjana Neil CNM Attending Provider Active S tart: January 26, 2025 End: January 26, 2025 Ranjana Neil CNM Referring Provider Active S tart: January 26, 2025 End: January 26, 2025 Team Status: Inactive Member Role/Relationship Status Dates Kiya Greer , [employer] ENGINEER-C Primary Care Provider Active Start: February 11, 2025 End: February 11, 2025 Kiya Greer [employer] ENGINEER-C Referring Provider Active Start: February 11, 2025 End: February 11, 2025 Dr. Rose Mahmood , Attending Provider Activ e Start: February 11, 2025 End: February 11, 2025 Team Status: Active Member Role/Relationship Status Dates Kiya Greer [employer] ENGINEER-C Primary care physician Active Team Status: Inactive Member Role/Relationship Status Dates Kiya Greer [employer] ENGINEER-C Primary care physician Active Start: November 05, 2024 End: November 05, 2024 Kiya Greer [employer] ENGINEER-C Referring Provider Active Start: November 05, 2024 End: November 05, 2024 Dr. Rose Mahmood , Attending physician Acti ve Start: November 05, 2024 End: November 05, 2024 Team Status: Inactive Member Role/Relationship Status Dates Kiya Greer [employer] ENGINEER-C Primary care physician Active Start: November 05, 2024 End: November 05, 2024 Dr. Rose Mahmood , Attending physician Acti ve Start: November 05, 2024 End: November 05, 2024 Dr. Rose Mahmood , Referring Provider Activ e Start: November 05, 2024 End: November 05, 2024 Team Status: Inactive Member Role/Relationship Status Dates Kiya Greer [employer] ENGINEER-C Primary care physician Active Start: December 01, 2024 End: December 01, 2024 Kiya Greer [employer] ENGINEER-C Referring Provider Active Start: December 01, 2024 End: December 01, 2024 Dr. Dorothy Lee MD Attending physician Active Start: December 01, 2024 End: December 01, 2024 Team Status: Inactive Member Role/Relationship Status Dates Kiya Greer [employer] ENGINEER-C Primary care physician Active Start: December 31, 2024 End: December 31, 2024 Kiya Greer [employer] ENGINEER-C Referring Provider Active Start: December 31, 2024 End: December 31, 2024 Dr. Rose Mahmood , Attending physician Acti ve Start: December 31, 2024 End: December 31, 2024 Team Status: Inactive Member Role/Relationship Status Dates Kiya Greer [employer] ENGINEER-C Primary care physician Active Start: January 26, 2025 End: January 26, 2025 Kiya Greer [employer] ENGINEER-C Referring Provider Active Start: January 26, 2025 End: January 26, 2025 Dr. Dorothy Lee MD Attending physician Active Start: January 26, 2025 End: January 26, 2025 Team Status: Inactive Member Role/Relationship Status Dates Kiya Greer [employer] ENGINEER-C Primary care physician Active Start: January 26, 2025 End: January 26, 2025 Ranjana Neil CNM Attending physician Active Start: January 26, 2025 End: January 26, 2025 Ranjana Neil CNM Referring Provider Active S tart: January 26, 2025 End: January 26, 2025 Team Status: Inactive Member Role/Relationship Status Dates Kiya Greer [employer] ENGINEER-C Primary care physician Active Start: February 11, 2025 End: February 11, 2025 Kiya Greer , CITY ENGINEER-C Referring Provider Active Start: February 11, 2025 End: February 11, 2025 Dr. Rose Mahmood DO Attending physician Active Start: February End: February 11, 2025 Team Status: Inactive Member Role/Relationship Status Dates Kiya Greer [employer] ENGINEER-C Primary care physician Active Start: February 25, 2025 End: February 25, 2025 Kiya Greer [employer] ENGINEER-C Referring Provider Active Start: February 25, 2025 End: February 25, 2025 Dr. Dorothy Lee MD Attending physician Active Start: February 25, 2025 End: February 25, 2025 Team Status: Inactive Member Role/Relationship Status Dates Kiya Greer [employer] ENGINEER-C Primary care physician Active Start: December 01, 2024 End: December 01, 2024 Kiya Greer [employer] ENGINEER-C Referring Provider Active Start: December 01, 2024 End: December 01, 2024 Dr. Dorothy Lee MD Attending physician Active Start: December 01, 2024 End: December 01, 2024 Team Status: Inactive Member Role/Relationship Status Dates Kiya Greer [employer] ENGINEER-C Primary care physician Active Start: December 31, 2024 End: December 31, 2024 Kiya Greer [employer] ENGINEER-C Referring Provider Active Start: December 31, 2024 End: December 31, 2024 Dr. Rose Mahmood DO Attending physician Acti ve Start: December 31, 2024 End: December 31, 2024 Team Status: Inactive Member Role/Relationship Status Dates Kiya Greer [employer] ENGINEER-C Primary care physician Active Start: January 26, 2025 End: January 26, 2025 Kiya Greer [employer] ENGINEER-C Referring Provider Active Start: January 26, 2025 End: January 26, 2025 Dr. Dorothy Lee MD Attending physician Active Start: January 26, 2025 End: January 26, 2025 Team Status: Inactive Member Role/Relationship Status Dates Kiya Greer [employer] ENGINEER-C Primary care physician Active Start: January 26, 2025 End: January 26, 2025 Ranjana Neil CNM Attending physician Active Start: January 26, 2025 End: January 26, 2025 Ranjana Neil CNM Referring Provider Active S tart: January 26, 2025 End: January 26, 2025 Team Status: Inactive Member Role/Relationship Status Dates Kiya Greer [employer] ENGINEER-C Primary care physician Active Start: February 11, 2025 End: February 11, 2025 Kiya Greer [employer] ENGINEER-C Referring Provider Active Start: February 11, 2025 End: February 11, 2025 Dr. Rose Mahmood DO Attending physician Active Start: February End: February 11, 2025 Team Status: Inactive Member Role/Relationship Status Dates Kiya Greer [employer] ENGINEER-C Primary care physician Active Start: February 25, 2025 End: February 25, 2025 Kiya Greer [employer] ENGINEER-C Referring Provider Active Start: February 25, 2025 End: February 25, 2025 Dr. Dorothy Lee MD Attending physician Active Start: February 25, 2025 End: February 25, 2025 Team Status: Inactive Member Role/Relationship Status Dates Kiya Greer [employer] ENGINEER-C Primary care physician Active Start: March 09, 2025 End: March 09, 2025 Kiya Greer [employer] ENGINEER-C Referring Provider Active Start: March 09, 2025 End: March 09, 2025 Dr. Rose Mahmood DO Attending physician Active Start: February End: March 09, 2025 Team Status: Inactive Member Role/Relationship Status Dates Kiya Greer [employer] ENGINEER-C Primary care physician Active Start: December 31, 2024 End: December 31, 2024 Kiya Greer [employer] ENGINEER-C Referring Provider Active Start: December 31, 2024 End: December 31, 2024 Dr. Rose Mahmood DO Attending physician Acti ve Start: December 31, 2024 End: December 31, 2024 Team Status: Inactive Member Role/Relationship Status Dates Kiya Greer [employer] ENGINEER-C Primary care physician Active Start: January 26, 2025 End: January 26, 2025 Kiya Greer [employer] ENGINEER-C Referring Provider Active Start: January 26, 2025 End: January 26, 2025 Dr. Dorothy Lee MD Attending physician Active Start: January 26, 2025 End: January 26, 2025 Team Status: Inactive Member Role/Relationship Status Dates Kiya Greer [employer] ENGINEER-C Primary care physician Active Start: January 26, 2025 End: January 26, 2025 Ranjana Neil CNM Attending physician Active Start: January 26, 2025 End: January 26, 2025 Ranjana Neil CNM Referring Provider Active S tart: January 26, 2025 End: January 26, 2025 Team Status: Inactive Member Role/Relationship Status Dates Kiya Greer [employer] ENGINEER-C Primary care physician Active Start: February 11, 2025 End: February 11, 2025 Kiya Greer [employer] ENGINEER-C Referring Provider Active Start: February 11, 2025 End: February 11, 2025 Dr. Rose Mahmood DO Attending physician Active Start: February End: February 11, 2025 Team Status: Inactive Member Role/Relationship Status Dates Kiya Greer [employer] ENGINEER-C Primary care physician Active Start: February 25, 2025 End: February 25, 2025 Kiya Greer [employer] ENGINEER-C Referring Provider Active Start: February 25, 2025 End: February 25, 2025 Dr. Dorothy Lee MD Attending physician Active Start: February 25, 2025 End: February 25, 2025 Team Status: Inactive Member Role/Relationship Status Dates Kiya Greer [employer] ENGINEER-C Primary care physician Active Start: March 09, 2025 End: March 09, 2025 Kiya Greer [employer] ENGINEER-C Referring Provider Active Start: March 09, 2025 End: March 09, 2025 Dr. Rose Mahmood DO Attending physician Active Start: February End: March 09, 2025 Team Status: Inactive Member Role/Relationship Status Dates Kiya Greer [employer] ENGINEER-C Primary care physician Active Start: March 23, 2025 End: March 23, 2025 Kiya Greer [employer] ENGINEER-C Referring Provider Active Start: March 23, 2025 End: March 23, 2025 Suzanne Salazar NP [employer] ENGINEER-C Attending physician Active Start: March 23, 2025 End: March 23, 2025 Team Status: Inactive Member Role/Relationship Status Dates Kiya Greer NP-C Primary care physician Active Start: April 06, 2025 End: April 06, 2025 Kiya Greer [employer] ENGINEER-C Referring Provider Active Start: April 06, 2025 End: April 06, 2025 Dr. Rose Mahmood DO Attending physician Acti ve Start: April 06, 2025 End: April 06, 2025 Team Status: Active Member Role/Relationship Status Dates Kiya Greer [employer] ENGINEER-C Primary care physician Active Start: April 06, [...] BE BASED ON THE PRIMARY CLINICAL RECORDS. [employer] provides no warranty or guarantee of the accuracy or completeness of information in this document.
== END 2025-04-24 06:13 | disposition home or self-care (01) ==
LOC: WPOUT 04-24 16:12 → WP 04-24 16:12
PROVIDERS: Admitting Provider Obstetrics & Gynecology; PCP Nurse Practitioner Family; Referring Provider Obstetrics & Gynecology; Visit Provider Obstetrics & Gynecology
DX: O47.9 False labor, unspecified (principal)
CPT/HCPCS: 36415; 59025; 59050; 82565; 82570; 84156; 84450; 84460; 84550; 85027; 99221; G0378

== ENCOUNTER 2025-04-26 08:24 | Inpatient (IN) | payer OTHER, SELFPAY ==
[2025-04-26] VITALS (67 sets, daily range): BP systolic 95–171; BP diastolic 53–109; PULSE 86–136; RESP 16; TEMP 36.1–38.6; O2SAT 96–100; BMI 36.2
--- OUTSIDE RECORDS SUMMARY | 2025-04-26 07:58 | XMS RPT_ITS | CCD ---
Author Organization [facility] ion Partnership [facility] [employer] Care Team Providers Care Coffee Grinder Name Role Phone Sowmya Baldwin E Unavailable Ele Osorio Unavailable Unavailable Unavailable Unavailable Rosalino Ramírez Unavailable Unavailable Unavailable Unavailable Denny Sowmya Unavailable Rosalino Ramírez LPN Unavailable Unavailable Ele Osorio Unavailable Unavailable Unavailable Unavailable Ciesa [employer]ACH, [employer]ACH-C [facility] Primary Care Provider Ciesa [employer], [employer]-C [facility] Referring Provider [phone] Dr. Rose Mahmood Attending Provider [phone] Dr. Dorothy Lee Attending Provider [phone] Ciesa [employer], [employer]-C [facility] Primary Care Provider Ciesa [employer], [employer] [facility] Referring Provider [phone] Dr. Rose Mahmood Attending Provider [phone] Cidavida Sowmya Unavailable Percy WHEELER, Kiya Unavailable [phone] Percy WHEELER, Kiya Unavailable [phone] Cidavida Sowmya Unavailable Ciesa [employer], [employer]-C [facility] Primary Care Provider Ciesa [employer], [employer]-C [facility] Referring Provider [phone] Dr. Rose Mahmood Attending Provider [phone] Marie [employer], [employer]-C Suzanne Attending Provider [phone] Odalys Farfan Attending Provider Unavailable Dr. Kirk Lemon Attending Provider Percy, [employer]-C Kiya Primary Care Provider [phone] Ciesa [employer], [employer] [facility] Primary Care Provider Ciesa [employer], [employer]-C Sowmya Referring Provider [phone] Dr. Dorothy Lee Attending Provider [phone] Percy, [employer]-C Kiya Referring Provider [phone] Dr. Dorothy Lee Admit Provider [phone] Dr. Dorothy Lee Other Provider Percy ASSISTANT FOOTBALL COACH, Ikya Attending Unavailable Percy ASSISTANT FOOTBALL COACH, Kiya Referring Unavailable Percy ASSISTANT FOOTBALL COACH, Kiya Consulting Unavailable Slarb PRICING INTERN, Lilian Unavailable Unavailable Percy [employer]-C, Kiya Primary Care Provider [phone] Percy [employer]-C, Kiya Referring Provider Dr. Dorothy Lee MD [...] Neil CNM Referring Provider [phone] Percy [employer]-C, Kiya Primary Care Provider [phone] Percy [employer]-C, Kiya Referring Provider Dr. Dorothy Lee MD Attending Provider Percy [employer]-C, Kiya Primary Care Physician [phone] Dr. Rose Mahmood DO Attending Physician Dr. Dorothy Lee MD Attending Physician Rashaad JOHNSON, Ranjana Attending Physician [phone] Percy [employer]ACH-C, Kiya Primary Care Physician [phone] Percy [employer]ACH-C, Kiya Referring Provider [phone] Dr. Rose Mahmood DO Attending Physician Percy [employer]-C, Kiya Primary Care Physician [phone] Percy [employer]ACH-C, Kiya Referring Provider [phone] Jesus URBINA, Dr. De La Cruz Attending Physician Marie [employer]ACH-C, Suzanne Attending Physician [phone] Percy, Kiya Referring [...] Referring Unavailable Percy, Kiya Primary Care Unavailable Ovid [employer]ACH, Suzanne Attending Unavailable Percy, Kiya Referring Unavailable [...] Primary Care Unavailable Percy, Kiya Referring Unavailable Ovid HEAD BOYS GOLF COACHSuzanne Referring Unavailable Ovid [employer]ACH, Suzanne Attending Unavailable Percy, Kiya Primary Care [...] Unavailable Percy, Kiya Primary Care Unavailable Percy, Ikya Referring Unavailable Rose Mahmood Attending Unavailabl e Percy, Kiya Referring Unavailable Rose Mahmood Attending Unavailabl e Percy, Kiya Primary Care Unavailable Percy, Kiya Referring Unavailable Percy, Kiya Primary Care Unavailable Dorothy Lee Attending Unavailable Allergies Allergy Classification Reported Allergen(s) Allergy Type Date of Onset Reaction(s) Facility (13 sources) Penicillin G; Translations: [Penicillin G Procaine *PENICILLINS*] Drug Allergy [facility] Work Phone: (17 sources) Penicillins; Translations: [Penicillins] Allergy to substance 2 [facility] Medications Current Medications Medication Drug Class(es) Dates [...] A DAY December 14, 2021 12:00am Multivit 44-Xscb-Jaezaj 1-Dha (Pnv-Dha) 27 mg iron-1 mg -300 mg capsule (16 sources) Start: 06-14-2021 Multivit 19-Jzfj-Eubibc 1-Dha (Pnv-Dha) 27 mg iron-1 mg -300 [...] 09-19-2022 Chronic Comment on above: treated by [facility] Dr Abiel Lee, put her on buspar. [...] AST [Catalytic activity/Vol] 20 U/L Normal <=31 [facility] Comment on above: Performed By: #### L 501.1400, L501.0900, L501.4100, L501.4405, L100.0500, L501.1105 ####[facility] [address] [place], [place], [id number] Alanine Aminotransferas (SGP T)on 04-20-2025 ALT [Catalytic activity/Vol] 16 U/L Normal <=34 [facility] Comment on above: Performed By: #### L 501.1400, L501.0900, L501.4100, L501.4405, L100.0500, L501.1105 ####[facility] [address] [place], [address] CBC-Complete Blood Cnt No Di ffon 04-20-2025 Erythrocyte distribution width (RBC) [Ratio] 14.7 % High 11.6-14.6 [facility] Comment on above: Performed By: #### L 501.1400, L501.0900, L501.4100, L501.4405, L100.0500, L501.1105 ####[facility] [address] [place], [address] Hematocrit (Bld) [Volume fraction] 35.0 % Low 37-47 [facility] Comment on above: Performed By: #### L 501.1400, L501.0900, L501.4100, L501.4405, L100.0500, L501.1105 ####[facility] [address] [place], [address] Hemoglobin (Bld) [Mass/Vol] 11.8 g/dL Low 12.0-15.0 [facility] Comment on above: Performed By: #### L 501.1400, L501.0900, L501.4100, L501.4405, L100.0500, L501.1105 ####[facility] [address] [place], [address] MCH (RBC) [Entitic mass] 30.3 pg Normal 27.0-32.0 [facility] Comment on above: Performed By: #### L 501.1400, L501.0900, L501.4100, L501.4405, L100.0500, L501.1105 ####[facility] [address] [place], [address] MCHC (RBC) [Mass/Vol] 33.7 g/dL Normal 32-36 [facility] Comment on above: Performed By: #### L 501.1400, L501.0900, L501.4100, L501.4405, L100.0500, L501.1105 ####[facility] [address] [place], [address] MCV (RBC) [Entitic vol] 89.7 fL Normal 81-99 [facility] Comment on above: Performed By: #### L 501.1400, L501.0900, L501.4100, L501.4405, L100.0500, L501.1105 ####[facility] [address] [place], [address] Platelet mean volume (Bld) [Entitic vol] 10.9 fL Normal 6.2-12.0 [facility] Comment on above: Performed By: #### L 501.1400, L501.0900, L501.4100, L501.4405, L100.0500, L501.1105 ####[facility] [address] [place], [address] Platelets (Bld) [#/Vol] 158 10*3/uL Normal 150-450 [facility] Comment on above: Performed By: #### L 501.1400, L501.0900, L501.4100, L501.4405, L100.0500, L501.1105 ####[facility] [address] [place], [address] RBC (Bld) [#/Vol] 3.90 10*6/uL Low 4.2-5.4 [facility] Comment on above: Performed By: #### L 501.1400, L501.0900, L501.4100, L501.4405, L100.0500, L501.1105 ####[facility] [address] [place], [address] RDW SD 46.9 fl High 35.1-43.9 [facility] Comment on above: Performed By: #### L 501.1400, L501.0900, L501.4100, L501.4405, L100.0500, L501.1105 ####[facility] [address] [place], [address] WBC (Bld) [#/Vol] 8.1 10*3/uL Normal 4.4-11.0 [facility] Comment on above: Performed By: #### L 501.1400, L501.0900, L501.4100, L501.4405, L100.0500, L501.1105 ####[facility] [address] [place], [address] OB Triage Progress Noteon OB Triage Progress Note [facility] Medical Records Department [address] [place] [address] OB Triage Progress Note 04/20/25 1334 MR#: [id number] Acct: [id number] Name: MARTIN CASTELLANOS Rep #: [id number] : 1995 29 From: Dorothy Lee MD PCP: Kiya Greer NP-C Status:REG CLI Y DOS: Location: [place] [address] Progress Notes Date of Service: 04/20/25 Progress Note: Patient presents for triage evaluation secondary to elevated bps in the office FHT: 130 Moderate variability reactive no decelerations category I tracing Simms: no regular Contractions Assessment and plan: elevated [...] (0-200) mg/g CRE Charges/Coding Procedures Urinary/Genital 52xxx-59xxx: 40247-37 non-stress test Interp 04/20/25 1336 Date Dorothy Lee MD Cosigner Signature (if applicable): Date CC: HEAD BOYS GOLF COACHAnilC Kiya Greer; Dr. Dorothy Lee MD Signed Normal [facility] Account Coordinator Office Visit Reporton 04-20-2025 Account Coordinator Office Visit Report [facility] [address], [address] [place] [address] OFFICE VISIT Date of Service: 04/20/25 MR#: [id number] Acct: [id number] Name: MARTIN CASTELLANOS LUZ Rep #: [id number] : 1995 Provider: Dr. Dorothy fields MD Age/Sex: 29/F Location: 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 ??-???-???-???-???-?? (more content not included)... Normal [facility] Protein+Creatinine Ratio,Uri neon 04-20-2025 PROT:CRE RATIO 195 mg/g CRE Normal 0-200 [facility] Comment on above: Performed By: #### L 501.1400, L501.0900, L501.4100, L501.4405, L100.0500, L501.1105 ####[facility] [address] [place], [place], [id number] Protein (U) [Mass/Vol] 9.3 mg/dL Normal 0.0-12.0 [facility] Comment on above: Performed By: #### L 501.1400, L501.0900, L501.4100, L501.4405, L100.0500, L501.1105 ####[facility] [address] [place], [address] UR CREAT 47.90 mg/dL Normal 28.00-217.00 [facility] Comment on above: Performed By: #### L 501.1400, L501.0900, L501.4100, L501.4405, L100.0500, L501.1105 ####[facility] [address] [place], [address] Serum Creatinine AND GFRon 1 06-20-2024 Creatinine [Mass/Vol] 0.63 mg/dL Low 0.70-1.20 [facility] Comment on above: Performed By: #### L 501.1400, L501.0900, L501.4100, L501.4405, L100.0500, L501.1105 ####[facility] [address] [place], [address] ECRCL 147.14 ml/min Normal 50-250 [facility] Comment on above: Performed By: #### L 501.1400, L501.0900, L501.4100, L501.4405, L100.0500, L501.1105 ####[facility] [address] [place], [address] GFR/1.73 sq M.predicted among non-blacks MDRD (S/P/Bld) [Vol rate/Area] 123 mL/min/{1.73_m2} Normal >60 [facility] Comment on above: Result Comment: mL/m in/1.73m2 CKD-EPI Creatinine Equation (2020) Performed By: #### L 501.1400, L501.0900, L501.4100, L501.4405, L100.0500, L501.1105 ####[facility] [address] [place], [address] Uric Acidon 04-20-2025 URIC 4.8 mg/dL Normal 2.6-6.0 [facility] Comment on above: Result Comment: The drugs N-Acetylcysteine and Metamizole may falsely depress this assay. Performed By: #### L 501.1400, L501.0900, L501.4100, L501.4405, L100.0500, L501.1105 ####[facility] [address] [place], [address] Account Coordinator Office Visit Reporton 04-14-2025 Account Coordinator Office Visit Report [facility] [address], [address] [place] [address] OFFICE VISIT Date of Service: 04/14/25 MR#: [id number] Acct: [id number] Name: MARTIN CASTELLANOS Rep #: [id number] : 1995 Provider: Dr. 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 Normal [facility] Rule out Beta Strep (Grp. B) on 04-08-2025 LUIS Group B Beta Streptococcus is not isolated. Normal [facility] Comment on above: Performed By: #### M [id number] ####[facility] [address] [place], [address] Laboratory - Chemistry and C hemistry - challengeOrdered By: Rose Man on 04-06-2025 Glucose Ql (U) Negative [facility] Laboratory - UrinalysisOrder ed By: Rose Man on 04-06-2025 Protein Ql (U) Negative [facility] Account Coordinator Office Visit Reporton 04-06-2025 Account Coordinator Office Visit Report [facility] [address], [address] [place] [address] OFFICE VISIT Date of Service: 04/06/25 MR#: [id number] Acct: [id number] Name: MARTIN CASTELLANOS Rep #: [id number] : 1995 Provider: Dr. 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 Normal [facility] Laboratory - Chemistry and C hemistry - challengeOrdered By: Suzanne Salazar on 03-23-2025 Glucose Ql (U) Negative [facility] Laboratory - UrinalysisOrder ed By: Suzanne Salazar on 03-23-2025 Protein Ql (U) Negative [facility] Account Coordinator Office Visit Reporton 03-23-2025 Account Coordinator Office Visit Report [facility] [address], [address] [place] [address] OFFICE VISIT Date of Service: 03/23/25 MR#: [id number] Acct: [id number] Name: MARTIN CASTELLANOS Rep #: [id number] : 1995 Provider: LUCINDA rodriguez Age/Sex: 29/F Location: [facility] Status: Signed Intake Vital Signs 02/11/25 09:41 03/09/25 09:27 03/23/25 13:40 Height 5 ft 4 in 5 ft 4 in 5 ft 4 in Weight: 207 lb 1 oz BMI 35.5 BP 112/81 H Intake Visit Reasons: 34wk ob 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 -???- (more content not included)... Normal [facility] Laboratory - Chemistry and C hemistry - challengeOrdered By: Rose Man on 03-09-2025 Glucose Ql (U) Negative [facility] Laboratory - UrinalysisOrder ed By: Rose Man on 03-09-2025 Protein Ql (U) Negative [facility] Account Coordinator Office Visit Reporton 03-09-2025 Account Coordinator Office Visit Report [facility] [address], [address] [place] [address] OFFICE VISIT Date of Service: 03/09/25 MR#: [id number] Acct: [id number] Name: MARTIN CASTELLANOS Rep #: [id number] : 1995 Provider: Dr. 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 Normal [facility] Laboratory - Chemistry and C hemistry - challengeOrdered By: Dorothy Lee on 02-25-2025 Glucose Ql (U) Negative [facility] Laboratory - UrinalysisOrder ed By: Dorothy Lee on 02-25-2025 Protein Ql (U) Negative [facility] Account Coordinator Office Visit Reporton 02-25-2025 Account Coordinator Office Visit Report [facility] [address], [address] [place] [address] OFFICE VISIT Date of Service: 02/25/25 MR#: [id number] Acct: [id number] Name: MARTIN CASTELLANOS Rep #: [id number] : 1995 Provider: Dr. 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 Normal [facility] Laboratory - Chemistry and C hemistry - challengeOrdered By: Rose Man on 02-11-2025 Glucose Ql (U) Negative [facility] Laboratory - UrinalysisOrder ed By: Rose Man on 02-11-2025 Protein Ql (U) Negative [facility] Account Coordinator Office Visit Reporton 02-11-2025 Account Coordinator Office Visit Report [facility] [address], [address] [place] [address] OFFICE VISIT Date of Service: 02/11/25 MR#: [id number] Acct: [id number] Name: MARTIN CASTELLANOS Rep #: [id number] : 1995 Provider: Dr. 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 ??-???-???-? (more content not included)... Normal [facility] Absolute lymphocyte countOrd ered By: Rose Man on 01-26-2025 Lymphocytes Auto (Unsp spec) [#/Vol] 1.16 10*3/uL 0.83-4.51 [facility] Absolute neutrophil countOrd ered By: Rose Man on 01-26-2025 Neutrophils (Bld) [#/Vol] 4.8 10*3/uL 2.0-7.7 [facility] Automated lymphocyte count a s percentage of total leukocytesOrdered By: Rose Man on 01-26-2025 Lymphocytes/100 WBC Auto (Unsp spec) 16.6 % Low 19-41 [facility] Basophil percentageOrdered B y: Rose Man on 01-26-2025 Basophils/100 WBC (Bld) 0.6 % 0-1 [facility] CBC W/Diff, Automatedon 01-09 Absolute Lymph 1.16 X10 3/uL Normal 0.83-4.51 [facility] Comment on above: Performed By: #### L 100.0100, L501.0250, L509.8002, L3890.6006 ####[facility] [address] [place], [address] Absolute Neut 4.8 X10 3/uL Normal 2.0-7.7 [facility] Comment on above: Performed By: #### L 100.0100, L501.0250, L509.8002, L3890.6006 ####[facility] [address] [place], [address] Basophils/100 WBC (Bld) 0.6 % Normal 0-1 [facility] Comment on above: Performed By: #### L 100.0100, L501.0250, L509.8002, L3890.6006 ####[facility] [address] [place], [address] Eosinophils/100 WBC (Bld) 2.1 % Normal 0-5 [facility] Comment on above: Performed By: #### L 100.0100, L501.0250, L509.8002, L3890.6006 ####[facility] [address] [place], [address] Erythrocyte distribution width (RBC) [Ratio] 15.3 % High 11.6-14.6 [facility] Comment on above: Performed By: #### L 100.0100, L501.0250, L509.8002, L3890.6006 ####[facility] [address] [place], [address] Hematocrit (Bld) [Volume fraction] 35.4 % Low 37-47 [facility] Comment on above: Performed By: #### L 100.0100, L501.0250, L509.8002, L3890.6006 ####[facility] [address] [place], [address] Hemoglobin (Bld) [Mass/Vol] 11.8 g/dL Low 12.0-15.0 [facility] Comment on above: Performed By: #### L 100.0100, L501.0250, L509.8002, L3890.6006 ####[facility] [address] [place], [address] IG% 4.600 High 0.0-0.9 [facility] Comment on above: Result Comment: IG% - Immature Granulocytes (promyelocytes, myelocytes and metamyelocytes) > 1% indicates that a LEFT SHIFT is Present. Performed By: #### L 100.0100, L501.0250, L509.8002, L3890.6006 ####[facility] [address] [place], [address] Lymphocytes/100 WBC (Bld) 16.6 % Low 19-41 [facility] Comment on above: Performed By: #### L 100.0100, L501.0250, L509.8002, L3890.6006 ####[facility] [address] [place], [address] MCH (RBC) [Entitic mass] 31.3 pg Normal 27.0-32.0 [facility] Comment on above: Performed By: #### L 100.0100, L501.0250, L509.8002, L3890.6006 ####[facility] [address] [place], [address] MCHC (RBC) [Mass/Vol] 33.3 g/dL Normal 32-36 [facility] Comment on above: Performed By: #### L 100.0100, L501.0250, L509.8002, L3890.6006 ####[facility] [address] [place], [address] MCV (RBC) [Entitic vol] 93.9 fL Normal 81-99 [facility] Comment on above: Performed By: #### L 100.0100, L501.0250, L509.8002, L3890.6006 ####[facility] [address] [place], [address] Monocytes/100 WBC (Bld) 7.2 % Normal 0-10 [facility] Comment on above: Performed By: #### L 100.0100, L501.0250, L509.8002, L3890.6006 ####[facility] [address] [place], [address] Neutrophils/100 WBC (Bld) 68.9 % Normal 47-70 [facility] Comment on above: Performed By: #### L 100.0100, L501.0250, L509.8002, L3890.6006 ####[facility] [address] [place], [address] Nucleated RBC (Bld) [#/Vol] 0 10*3/uL Normal 0-5 [facility] Comment on above: Performed By: #### L 100.0100, L501.0250, L509.8002, L3890.6006 ####[facility] [address] [place], [address] Platelet mean volume (Bld) [Entitic vol] 10.5 fL Normal 6.2-12.0 [facility] Comment on above: Performed By: #### L 100.0100, L501.0250, L509.8002, L3890.6006 ####[facility] [address] [place], [address] Platelets (Bld) [#/Vol] 182 10*3/uL Normal 150-450 [facility] Comment on above: Performed By: #### L 100.0100, L501.0250, L509.8002, L3890.6006 ####[facility] [address] [place], [address] RBC (Bld) [#/Vol] 3.77 10*6/uL Low 4.2-5.4 [facility] Comment on above: Performed By: #### L 100.0100, L501.0250, L509.8002, L3890.6006 ####[facility] [address] [place], [address] RDW SD 53.1 fl High 35.1-43.9 [facility] Comment on above: Performed By: #### L 100.0100, L501.0250, L509.8002, L3890.6006 ####[facility] [address] [place], [address] WBC (Bld) [#/Vol] 7.0 10*3/uL Normal 4.4-11.0 [facility] Comment on above: Performed By: #### L 100.0100, L501.0250, L509.8002, L3890.6006 ####[facility] [address] [place], [address] Eosinophil percentageOrdered By: Rose Man on 01-26-2025 Eosinophils/100 WBC (Bld) 2.1 % 0-5 [facility] Erythrocyte distribution wid th ratioOrdered By: Rose Man on 01-26-2025 Erythrocyte distribution width (RBC) [Ratio] 15.3 % High 11.6-14.6 [facility] Erythrocyte distribution wid th standard deviationOrdered By: Rose Man on 01-26-2025 Erythrocyte distribution width (RBC) [Ratio] 53.1 fl High 35.1-43.9 [facility] Glucose Challenge Gest 1H 50 aleyda 01-26-2025 GLU GEST 50g 1H 112 mg/dL Normal 70-140 [facility] Comment on above: Performed By: #### L 100.0100, L501.0250, L509.8002, L3890.6006 ####[facility] [address] [place], [place], [id number] Glucose measurement at 2 larry rs post-dose gestational glucose tolerance testOrdered By: Rose Man on 01-26-2025 Glucose [Mass/Vol] 112 mg/dL 70-140 [facility] HIVon 01-26-2025 HIV Non-Reactive Normal Nonreactive [facility] Comment on above: Result Comment: Non- Reactive Reactive Repeatedly reactive samples must be confirmed according to CDC recommended confirmatory algorithms. The subresults for either HIVAG or AHIV can be used as an aid in the selection of the confirmation algorithm for reactive samples. Send out specimens with Reactive results to [facility] for confirmation. Order the HIV antibody detection and differentiation: [id number] Performed By: #### L 100.0100, L501.0250, L509.8002, L3890.6006 ####[facility] [address] [place], [address] Hematocrit Auto (Bld) [Volum e fraction]Ordered By: Rose Man on 01-26-2025 Hematocrit (Bld) [Volume fraction] 35.4 % Low 37-47 [facility] Hemoglobin measurementOrdere d By: Rose Man on 01-26-2025 Hemoglobin (Bld) [Mass/Vol] 11.8 g/dL Low 12.0-15.0 [facility] Immature granulocytes/100 WB C Auto (Bld)Ordered By: Rose Man on 01-26-2025 Immature granulocytes/100 WBC (Bld) 4.600 % High 0.0-0.9 [facility] Comment on above: IG% - Immature Granu locytes (promyelocytes, myelocytes and metamyelocytes) > 1% indicates that a LEFT SHIFT is Present. Laboratory - Chemistry and C hemistry - challengeOrdered By: Dorothy Lee on 01-26-2025 Glucose Ql (U) Negative [facility] Laboratory - UrinalysisOrder ed By: Dorothy Lee on 01-26-2025 Protein Ql (U) Negative [facility] MCV (mean corpuscular volume ) determinationOrdered By: Rose Man on 01-26-2025 MCV (RBC) [Entitic vol] 93.9 fL 81-99 [facility] Mean corpuscular hemoglobin (MCH) determinationOrdered By: Rose Man on 01-26-2025 MCH (RBC) [Entitic mass] 31.3 pg 27.0-32.0 [facility] Mean corpuscular hemoglobin concentration (MCHC) determinationOrdered By: Rose Man on 01-26-2025 MCHC (RBC) [Mass/Vol] 33.3 g/dL 32-36 [facility] Mean platelet volume determi nationOrdered By: Rose Man on 01-26-2025 Platelet mean volume (Bld) [Entitic vol] 10.5 fL 6.2-12.0 [facility] Monocyte percentageOrdered B y: Rose Man on 01-26-2025 Monocytes/100 WBC (Bld) 7.2 % 0-10 [facility] Neutrophil percentageOrdered By: Rose Man on 01-26-2025 Neutrophils/100 WBC (Bld) 68.9 % 47-70 [facility] No Panel InformationOrdered By: Rose Man on 01-26-2025 HIV (1&2) Antibody Non-Reactive Nonreactive [facility] Comment on above: Non-ReactiveReactive Repeatedly reactive samples must be confirmed according to CDC recommended confirmatory algorithms. The subresults for either HIVAG or AHIV can be used as an aid in the selection of the confirmation algorithm for reactive samples.Send out specimens with Reactive results to [facility] for confirmation.Order the HIV antibody detection and differentiation: #[id number] Nucleated red blood cell per centageOrdered By: Rose Man on 01-26-2025 Nucleated RBC/100 WBC (Bld) [Ratio] 0 % 0-5 [facility] Account Coordinator Office Visit Reporton 01-26-2025 Account Coordinator Office Visit Report [facility] [address], [address] [place] [address] OFFICE VISIT Date of Service: 01/26/25 MR#: [id number] Acct: [id number] Name: MARTIN CASTELLANOS Rep #: [id number] : 1995 Provider: Dr. 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 Normal [facility] Platelet countOrdered By: Reji Man on 01-26-2025 Platelets (Bld) [#/Vol] 182 10*3/uL 150-450 [facility] RBC Auto (Bld) [#/Vol]Ordere d By: Rose Man on 01-26-2025 RBC (Bld) [#/Vol] 3.77 10*6/uL Low 4.2-5.4 [facility] Syphilis Antibodieson 2024 Syphilis Abs Non-Reactive Normal Nonreactive [facility] Comment on above: Performed By: #### L 100.0100, L501.0250, L509.8002, L3890.6006 ####[facility] [address] [place], [place], [address] White blood cell (WBC) count Ordered By: Rose Man on 01-26-2025 WBC (Bld) [#/Vol] 7.0 10*3/uL 4.4-11.0 [facility] Laboratory - Chemistry and C hemistry - challengeOrdered By: Rose Man on 12-31-2024 Glucose Ql (U) Negative [facility] Laboratory - UrinalysisOrder ed By: Rose Man on 12-31-2024 Protein Ql (U) Negative [facility] Account Coordinator Office Visit Reporton 12-31-2024 Account Coordinator Office Visit Report [address], [address] [place] [address] OFFICE VISIT Date of Service: 12/31/24 MR#: [id number] Acct: [id number] Name: MARTIN CASTELLANOS Rep #: [id number] : 1995 Provider: Dr. Rose Wolfe DO Age/Sex: 29/F Location: 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 ??-???-???-??? (more content not included)... Normal [facility] Laboratory - Chemistry and C hemistry - challengeOrdered By: Dorothy Lee on 12-01-2024 Glucose Ql (U) Negative [facility] Laboratory - UrinalysisOrder ed By: Dorothy Lee on 12-01-2024 Protein Ql (U) Negative [facility] Account Coordinator Office Visit Reporton 12-01-2024 Account Coordinator Office Visit Report [facility] [address], [address] [place] [address] OFFICE VISIT Date of Service: 12/01/24 MR#: [id number] Acct: [id number] Name: EMANUELMARTIN LUZ Rep #: [id number] : 1995 Provider: Dr. 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 Normal [facility] Absolute lymphocyte countOrd ered By: Dorothy Nuneskaylynn on 11-05-2024 Lymphocytes Auto (Unsp spec) [#/Vol] 1.48 10*3/uL 0.83-4.51 [facility] Absolute neutrophil countOrd ered By: Dorothy Nuneskaylynn on 11-05-2024 Neutrophils (Bld) [#/Vol] 5.7 10*3/uL 2.0-7.7 [facility] Automated lymphocyte count a s percentage of total leukocytesOrdered By: Dorothy Jesus on 11-05-2024 Lymphocytes/100 WBC Auto (Unsp spec) 18.6 % Low 19-41 [facility] Basophil percentageOrdered B y: Dorothy Nuneskaylynn on 11-05-2024 Basophils/100 WBC (Bld) 0.3 % 0-1 [facility] CBC W/Diff, Automatedon 10-10 Absolute Lymph 1.48 X10 3/uL Normal 0.83-4.51 [facility] Comment on above: Performed By: #### L 100.0100, L3890.6006, L509.8002, BTS, L509.4006, L3890.6301, L3890.6102 ####[facility] [address] [place], [address] Absolute Neut 5.7 X10 3/uL Normal 2.0-7.7 [facility] Comment on above: Performed By: #### L 100.0100, L3890.6006, L509.8002, BTS, L509.4006, L3890.6301, L3890.6102 ####[facility] [address] [place], [address] Basophils/100 WBC (Bld) 0.3 % Normal 0-1 [facility] Comment on above: Performed By: #### L 100.0100, L3890.6006, L509.8002, BTS, L509.4006, L3890.6301, L3890.6102 ####[facility] [address] [place], [address] Eosinophils/100 WBC (Bld) 2.8 % Normal 0-5 [facility] Comment on above: Performed By: #### L 100.0100, L3890.6006, L509.8002, BTS, L509.4006, L3890.6301, L3890.6102 ####[facility] [address] [place], [address] Erythrocyte distribution width (RBC) [Ratio] 14.2 % Normal 11.6-14.6 [facility] Comment on above: Performed By: #### L 100.0100, L3890.6006, L509.8002, BTS, L509.4006, L3890.6301, L3890.6102 ####[facility] [address] [place], [address] Hematocrit (Bld) [Volume fraction] 38.3 % Normal 37-47 [facility] Comment on above: Performed By: #### L 100.0100, L3890.6006, L509.8002, BTS, L509.4006, L3890.6301, L3890.6102 ####[facility] [address] [place], [address] Hemoglobin (Bld) [Mass/Vol] 12.8 g/dL Normal 12.0-15.0 [facility] Comment on above: Performed By: #### L 100.0100, L3890.6006, L509.8002, BTS, L509.4006, L3890.6301, L3890.6102 ####[facility] [address] [place], [address] IG% 1.100 High 0.0-0.9 [facility] Comment on above: Result Comment: IG% - Immature Granulocytes (promyelocytes, myelocytes and metamyelocytes) > 1% indicates that a LEFT SHIFT is Present. Performed By: #### L 100.0100, L3890.6006, L509.8002, BTS, L509.4006, L3890.6301, L3890.6102 ####[facility] [address] [place], [address] Lymphocytes/100 WBC (Bld) 18.6 % Low 19-41 [facility] Comment on above: Performed By: #### L 100.0100, L3890.6006, L509.8002, BTS, L509.4006, L3890.6301, L3890.6102 ####[facility] [address] [place], [address] MCH (RBC) [Entitic mass] 30.3 pg Normal 27.0-32.0 [facility] Comment on above: Performed By: #### L 100.0100, L3890.6006, L509.8002, BTS, L509.4006, L3890.6301, L3890.6102 ####[facility] [address] [place], [address] MCHC (RBC) [Mass/Vol] 33.4 g/dL Normal 32-36 [facility] Comment on above: Performed By: #### L 100.0100, L3890.6006, L509.8002, BTS, L509.4006, L3890.6301, L3890.6102 ####[facility] [address] [place], [address] MCV (RBC) [Entitic vol] 90.8 fL Normal 81-99 [facility] Comment on above: Performed By: #### L 100.0100, L3890.6006, L509.8002, BTS, L509.4006, L3890.6301, L3890.6102 ####[facility] [address] [place], [address] Monocytes/100 WBC (Bld) 5.8 % Normal 0-10 [facility] Comment on above: Performed By: #### L 100.0100, L3890.6006, L509.8002, BTS, L509.4006, L3890.6301, L3890.6102 ####[facility] [address] [place], [address] Neutrophils/100 WBC (Bld) 71.4 % High 47-70 [facility] Comment on above: Performed By: #### L 100.0100, L3890.6006, L509.8002, BTS, L509.4006, L3890.6301, L3890.6102 ####[facility] [address] [place], [address] Nucleated RBC (Bld) [#/Vol] 0 10*3/uL Normal 0-5 [facility] Comment on above: Performed By: #### L 100.0100, L3890.6006, L509.8002, BTS, L509.4006, L3890.6301, L3890.6102 ####[facility] [address] [place], [address] Platelet mean volume (Bld) [Entitic vol] 10.1 fL Normal 6.2-12.0 [facility] Comment on above: Performed By: #### L 100.0100, L3890.6006, L509.8002, BTS, L509.4006, L3890.6301, L3890.6102 ####[facility] [address] [place], [address] Platelets (Bld) [#/Vol] 206 10*3/uL Normal 150-450 [facility] Comment on above: Performed By: #### L 100.0100, L3890.6006, L509.8002, BTS, L509.4006, L3890.6301, L3890.6102 ####[facility] [address] [place], [address] RBC (Bld) [#/Vol] 4.22 10*6/uL Normal 4.2-5.4 [facility] Comment on above: Performed By: #### L 100.0100, L3890.6006, L509.8002, BTS, L509.4006, L3890.6301, L3890.6102 ####[facility] [address] [place], [address] RDW SD 47.1 fl High 35.1-43.9 [facility] Comment on above: Performed By: #### L 100.0100, L3890.6006, L509.8002, BTS, L509.4006, L3890.6301, L3890.6102 ####[facility] [address] [place], [address] WBC (Bld) [#/Vol] 8.0 10*3/uL Normal 4.4-11.0 [facility] Comment on above: Performed By: #### L 100.0100, L3890.6006, L509.8002, BTS, L509.4006, L3890.6301, L3890.6102 ####[facility] [address] [place], [address] Eosinophil percentageOrdered By: Dorothy Lee on 11-05-2024 Eosinophils/100 WBC (Bld) 2.8 % 0-5 [facility] Erythrocyte distribution wid th ratioOrdered By: Dorothy Lee on 11-05-2024 Erythrocyte distribution width (RBC) [Ratio] 14.2 % 11.6-14.6 [facility] Erythrocyte distribution wid th standard deviationOrdered By: Dorothy Lee on 11-05-2024 Erythrocyte distribution width (RBC) [Ratio] 47.1 fl High 35.1-43.9 [facility] HIVon 11-05-2024 HIV Non-Reactive Normal Nonreactive [facility] Comment on above: Result Comment: Non- Reactive Reactive Repeatedly reactive samples must be confirmed according to CDC recommended confirmatory algorithms. The subresults for either HIVAG or AHIV can be used as an aid in the selection of the confirmation algorithm for reactive samples. Send out specimens with Reactive results to [facility] for confirmation. Order the HIV antibody detection and differentiation: #[id number] Performed By: #### L 100.0100, L3890.6006, L509.8002, BTS, L509.4006, L3890.6301, L3890.6102 ####[facility] [address] [place], [address] Hematocrit Auto (Bld) [Volum e fraction]Ordered By: Dorothy Lee on 11-05-2024 Hematocrit (Bld) [Volume fraction] 38.3 % 37-47 [facility] Hemoglobin measurementOrdere d By: Dorothy Lee on 11-05-2024 Hemoglobin (Bld) [Mass/Vol] 12.8 g/dL 12.0-15.0 [facility] Hepatitis C Antibodyon 11-05 Hepatitis C Ab Non-Reactive Normal Nonreactive [facility] Comment on above: Result Comment: Reac tive: Presumptive evidence of antibodies to HCV. Follow CDC recommendations for supplemental testing. Non-Reactive: Antibodies to HCV were not detected; does not exclude the possibility of exposure to HCV Reactive Results are presumptive evidence of antibodies to HCV. Follow CDC recommendations for supplemental testing. Order confirmation testing: HCV Quant by PCR testing - HCVPCR #[id number] Non Reactive: < 0.8 Equivocal: >/= 0.8 to < 1.0 Reactive: >/= 1.[address] [facility] requires that a reactive/equivocal HCV antibody result be sent out for confirmation. HCV Quant by PCR testing. Performed By: #### L 100.0100, L3890.6006, L509.8002, BTS, L509.4006, L3890.6301, L3890.6102 ####[facility] [address] [place], [place], [id number] Immature granulocytes/100 WB C Auto (Bld)Ordered By: Dorothy Lee on 11-05-2024 Immature granulocytes/100 WBC (Bld) 1.100 % High 0.0-0.9 [facility] Comment on above: IG% - Immature Granu locytes (promyelocytes, myelocytes and metamyelocytes) > 1% indicates that a LEFT SHIFT is Present. L3890.6102on 11-05-2024 HEP B Surf Ag Non-Reactive Normal Nonreactive [facility] Comment on above: Result Comment: Reac tive: Presumptive evidence of HBV. Repeatedly reactive samples must be confirmed using a neutralization test ([employer] HBsAg Confirmatory Test) Non-Reactive: HBsAg not detected; does not exclude the possibility of exposure to HBV Performed By: #### L 100.0100, L3890.6006, L509.8002, BTS, L509.4006, L3890.6301, L3890.6102 ####[facility] [address] [place], [place], [address] L509.4006on 11-05-2024 Rubella IgG REAC Normal Nonreactive [facility] Comment on above: Result Comment: Anti body Result: Interpretation Non-Reactive: Non-Immune Reactive: Immune The following results were obtained with the [employer] Rubella IgG assay. Results from assays of other manufacturers cannot be used interchangeably. Performed By: #### L 100.0100, L3890.6006, L509.8002, BTS, L509.4006, L3890.6301, L3890.6102 ####[facility] [address] [place], [address] Laboratory - Chemistry and C hemistry - challengeOrdered By: Rose Man on 11-05-2024 Glucose Ql (U) Negative [facility] Laboratory - Microbiology an d Antimicrobial susceptibilityOrdered By: Dorothy Lee on 11-05-2024 HBV surface Ag Ql (S) Non-Reactive Nonreactive [facility] Comment on above: Reactive: Presumptiv e evidence of HBV. Repeatedly reactive samples must be confirmed using a neutralization test ([employer] HBsAg Confirmatory Test)Non-Reactive: HBsAg not detected; does not exclude the possibility of exposure to HBV Laboratory - UrinalysisOrder ed By: Rose Man on 11-05-2024 Protein Ql (U) Negative [facility] MCV (mean corpuscular volume ) determinationOrdered By: Dorothy Lee on 11-05-2024 MCV (RBC) [Entitic vol] 90.8 fL 81-99 [facility] Mean corpuscular hemoglobin (MCH) determinationOrdered By: Dorothy Lee on 11-05-2024 MCH (RBC) [Entitic mass] 30.3 pg 27.0-32.0 [facility] Mean corpuscular hemoglobin concentration (MCHC) determinationOrdered By: Dorothy Lee on 11-05-2024 MCHC (RBC) [Mass/Vol] 33.4 g/dL 32-36 [facility] Mean platelet volume determi nationOrdered By: Dorothy Lee on 11-05-2024 Platelet mean volume (Bld) [Entitic vol] 10.1 fL 6.2-12.0 [facility] Monocyte percentageOrdered B y: Dorothy Lee on 11-05-2024 Monocytes/100 WBC (Bld) 5.8 % 0-10 [facility] Neutrophil percentageOrdered By: Dorothy Lee on 11-05-2024 Neutrophils/100 WBC (Bld) 71.4 % High 47-70 [facility] No Panel InformationOrdered By: Dorothy Lee on 11-05-2024 HIV (1&2) Antibody Non-Reactive Nonreactive [facility] Comment on above: Non-ReactiveReactive Repeatedly reactive samples must be confirmed according to CDC recommended confirmatory algorithms. The subresults for either HIVAG or AHIV can be used as an aid in the selection of the confirmation algorithm for reactive samples.Send out specimens with Reactive results to [facility] for confirmation.Order the HIV antibody detection and differentiation: #[id number] Nucleated red blood cell per centageOrdered By: Dorothy Lee on 11-05-2024 Nucleated RBC/100 WBC (Bld) [Ratio] 0 % 0-5 [facility] Account Coordinator Office Visit Reporton 11-05-2024 Account Coordinator Office Visit Report [facility] [address], [address] [place] [address] OFFICE VISIT Date of Service: 11/05/24 MR#: [id number] Acct: [id number] Name: MARTIN CASTELLANOS Rep #: [id number] : 1995 Provider: Dr. 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 ??-???-???-??? (more content not included)... Normal [facility] Platelet countOrdered By: Karena Lee on 11-05-2024 Platelets (Bld) [#/Vol] 206 10*3/uL 150-450 [facility] RBC Auto (Bld) [#/Vol]Ordere d By: Dorothy Lee on 11-05-2024 RBC (Bld) [#/Vol] 4.22 10*6/uL 4.2-5.4 [facility] Syphilis Antibodieson 2024 Syphilis Abs Non-Reactive Normal Nonreactive [facility] Comment on above: Performed By: #### L 100.0100, L3890.6006, L509.8002, BTS, L509.4006, L3890.6301, L3890.6102 ####[facility] [address] [place], [place], [id number] Type AND Screenon 11-05-2024 ABO and Rh group Nom (Bld) Blood group A Rh(D) positive Normal [facility] Comment on above: Order Comment: PN Performed By: #### L 100.0100, L3890.6006, L509.8002, BTS, L509.4006, L3890.6301, L3890.6102 ####[facility] [address] [place], [place], [id number] White blood cell (WBC) count Ordered By: Dorothy Lee on 11-05-2024 WBC (Bld) [#/Vol] 8.0 10*3/uL 4.4-11.0 [facility] Chlamydia/GC ZULEMA aptimaon CHLAMY,NUC ACID Negative Normal Negative [facility] Comment on above: Performed By: #### M 100.2200, L7000.1800 #### [facility] [address] [place], [address] GC BY NUC ACID Negative Normal Negative [facility] Comment on above: Result Comment: Perf ormed at: =G - [facility] [address] [id number] Hospice Social Worker: Shy Zelaya MD, Phone: [phone] Performed By: #### M 100.2200, L7000.1800 #### [facility] [address] [place], [address] Urine Cultureon 10-01-2024 [facility] Below infection leve l. Mixed Gram Positive Organisms [place] Count 1000-10,000 MIXC Mixed contaminants. Submit a new specimen if indicated. Normal [facility] Comment on above: Performed By: #### M 100.2200, L7000.1800 #### [facility] [address] [place], [address] C. trachomatis rRNA ZULEMA+prob e Ql (Unsp spec)Ordered By: Dorothy Lee on 09-29-2024 Chlamydia DNA (ZULEMA) Negative Negative [facility] Chlamydia trachomatis rRNA d etection by probe and target amplification methodOrdered By: Dorothy Lee on 09-29-2024 C. trachomatis rRNA ZULEMA+probe Ql (Unsp spec) Negative Negative [facility] Neisseria gonorrhoeae nuclei c acid detection by amplified probe techniqueOrdered By: Dorothy Lee on 09-29-2024 N. gonorrhoeae DNA ZULEMA+probe Ql (Unsp spec) Negative Negative [facility] Comment on above: Performed at: =G - [facility] [address] [id number] Director: Shy Zelaya MD, Phone: [phone] Account Coordinator Office Visit Reporton 09-29-2024 Account Coordinator Office Visit Report [facility] [address], [address] [place] [address] OFFICE VISIT Date of Service: 09/29/24 MR#: [id number] Acct: [id number] Name: MARTIN CASTELLANOS Rep #: [id number] : 1995 Provider: Dr. 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 Normal [facility] Urine cultureOrdered By: Pelon Lee on 09-29-2024 Bacteria identified Cx Nom (U) Positive Abnormal [facility] Hemoglobin A1Con 07-22-2024 Glucose [Mass/Vol] 103 mg/dL Normal [facility] Comment on above: Result Comment: The ADA and AACC recommend providing the estimated average glucose result to permit better patient understanding of their HBA1c result. Performed at [facility] [employer], [address] [place] [address] . HbA1c (Bld) [Mass fraction] 5.2 % Normal 4.0-6.0 [facility] Iron Binding Capon 5 % Fe Saturation 36 % Normal 20-55 [facility] Iron [Mass/Vol] 108 ug/dL Normal 37-145 [facility] Total Fe Binding Cap 303 ug/dL Normal 250-450 [facility] Unbound Fe Bind Cap 195 ug/dL Normal 112-347 [facility] Comment on above: Result Comment: Perf ormed at [facility], [address] [place] [address] . Vitamin D 25 OHon 07-22-2024 Vitamin D 25 [place] 28.3 ng/mL Low 30.0-100.0 [facility] Comment on above: Result Comment: Reference Range: Vitamin D status Range Deficiency <20 ng/mL Mild Deficiency 20-30 ng/mL Sufficiency 30-100 ng/mL Toxicity >100 ng/mL Performed at [facility], [address] [place] [address] . CBC With Platelet and Differ entialon 07-21-2024 Basophils (Bld) [#/Vol] 0.0 10*3/uL Normal 0.0-0.2 [facility] Comment on above: Performed By: #### C BCWD #### [facility] [address] [place] [address] Basophils/100 WBC (Bld) 0.4 % Normal [facility] Comment on above: Performed By: #### C BCWD #### [facility] [address] [place] [address] Eosinophils (Bld) [#/Vol] 0.1 10*3/uL Normal 0.0-0.7 [facility] Comment on above: Performed By: #### C BCWD #### [facility] [address] [place] [address] Eosinophils/100 WBC (Bld) 1.6 % Normal [facility] Comment on above: Performed By: #### C BCWD #### [facility] [address] [place] [address] Erythrocyte distribution width (RBC) [Ratio] 12.8 % Normal 11.5-14.5 [facility] Comment on above: Performed By: #### C BCWD #### [facility] [address] [place] [address] Hematocrit (Bld) [Volume fraction] 42.8 % Normal 37.0-47.0 [facility] Comment on above: Performed By: #### C BCWD #### [facility] [address] [place] [address] Hemoglobin (Bld) [Mass/Vol] 14.1 g/dL Normal 12.0-16.0 [facility] Comment on above: Performed By: #### C BCWD #### [facility] [address] [place] [address] Lymphocytes (Bld) [#/Vol] 1.9 10*3/uL Normal 1.0-4.8 [facility] Comment on above: Performed By: #### C BCWD #### [facility] [address] [place] [address] Lymphocytes/100 WBC (Bld) 25.4 % Normal [facility] Comment on above: Performed By: #### C BCWD #### [facility] [address] [place] [address] MCH (RBC) [Entitic mass] 29.6 pg Normal 27.0-31.3 [facility] Comment on above: Performed By: #### C BCWD #### [facility] [address] [place] [address] MCHC 32.9 % Low 33.0-37.0 [facility] Comment on above: Performed By: #### C BCWD #### [facility] [address] [place] [address] MCV (RBC) [Entitic vol] 89.9 fL Normal 79.4-94.8 [facility] Comment on above: Performed By: #### C BCWD #### [facility] [address] [place] [address] Monocytes (Bld) [#/Vol] 0.4 10*3/uL Normal 0.2-0.8 [facility] Comment on above: Performed By: #### C BCWD #### [facility] [address] [place] [address] Monocytes/100 WBC (Bld) 5.6 % Normal [facility] Comment on above: Performed By: #### C BCWD #### [facility] [address] [place] [address] Neutrophils (Bld) [#/Vol] 4.9 10*3/uL Normal 1.4-6.5 [facility] Comment on above: Performed By: #### C BCWD #### [facility] [address] [place] [address] Neutrophils/100 WBC (Bld) 66.1 % Normal [facility] Comment on above: Performed By: #### C BCWD #### [facility] [address] [place] [address] Platelets (Bld) [#/Vol] 234 10*3/uL Normal 130-400 [facility] Comment on above: Performed By: #### C BCWD #### [facility] [address] [place] [address] RBC (Bld) [#/Vol] 4.76 10*6/uL Normal 4.20-5.40 [facility] Comment on above: Performed By: #### C BCWD #### [facility] [address] [place] [address] WBC (Bld) [#/Vol] 7.4 10*3/uL Normal 4.8-10.8 [facility] Comment on above: Performed By: #### C BCWD #### [facility] [address] [place] [address] Comprehensive Metabolic Pane j carlos 07-21-2024 Albumin [Mass/Vol] 4.4 g/dL Normal 3.5-4.6 [facility] Comment on above: Performed By: #### C MP #### [facility] [address] [place] [address] ALP [Catalytic activity/Vol] 66 U/L Normal 40-130 [facility] Comment on above: Performed By: #### C MP #### [facility] [address] [place] [address] ALT [Catalytic activity/Vol] 31 U/L Normal 0-33 [facility] Comment on above: Performed By: #### C MP #### [facility] [address] [place] [address] Anion gap [Moles/Vol] 12 mmol/L Normal 9-15 [facility] [place] Comment on above: Performed By: #### C MP #### [facility] [address] [place] [address] AST [Catalytic activity/Vol] 21 U/L Normal 0-35 [facility] Comment on above: Performed By: #### C MP #### [facility] [address] [place] [address] Bilirubin [Mass/Vol] 0.3 mg/dL Normal 0.2-0.7 [facility] Comment on above: Performed By: #### C MP #### [facility] [address] [place] [address] Calcium [Mass/Vol] 9.2 mg/dL Normal 8.5-9.9 [facility] Comment on above: Performed By: #### C MP #### [facility] [address] [place] [address] Chloride [Moles/Vol] 101 mmol/L Normal 95-107 [facility] Comment on above: Performed By: #### C MP #### [facility] [address] [place] [address] CO2 [Moles/Vol] 25 mmol/L Normal 20-31 [facility] Comment on above: Performed By: #### C MP #### [facility] [address] [place] [address] Creatinine [Mass/Vol] 0.74 mg/dL Normal 0.50-0.90 [facility] [place] Comment on above: Performed By: #### C MP #### [facility] [address] [place] [address] GFR >90.0 Normal >60 [facility] Comment on above: Result Comment: [...] secretion. Performed By: #### C MP #### [facility] [address] [place] [address] Globulin (S) [Mass/Vol] 3.4 g/dL Normal 2.3-3.5 [facility] Comment on above: Performed By: #### C MP #### [facility] [address] [place] [address] Glucose [Mass/Vol] 76 mg/dL Normal 70-99 [facility] Comment on above: Performed By: #### C MP #### [facility] [address] [place] [address] Potassium [Moles/Vol] 4.0 mmol/L Normal 3.4-4.9 [facility] [place] Comment on above: Performed By: #### C MP #### [facility] [address] [place] [address] Protein [Mass/Vol] 7.8 g/dL Normal 6.3-8.0 [facility] Comment on above: Performed By: #### C MP #### [facility] [address] [place] [address] Sodium [Moles/Vol] 138 mmol/L Normal 135-144 [facility] Comment on above: Performed By: #### C MP #### [facility] [address] [place] [address] Urea nitrogen [Mass/Vol] 8 mg/dL Normal 6-20 [facility] Comment on above: Performed By: #### C MP #### [facility] [address] [place] [address] Lipid Panel Fastingon 2024 Cholesterol [Mass/Vol] 213 mg/dL Critically high 0-199 [facility] Comment on above: Result Comment: ATP III Cholesterol Classification is Borderline High. Performed By: #### L IPDF #### [facility] [address] [place] [address] HDL Cholesterol Fasting 64 mg/dL Critically high 40-59 [facility] Comment on above: Result Comment: [...] CHD Performed By: #### L IPDF #### [facility] [address] [place] [address] LDL Cholesterol (Calculated) Fasting 137 mg/dL Critically high 0-129 [facility] Comment on above: Result Comment: ATT III Classification is Borderline High. Performed By: #### L IPDF #### [facility] [address] [place] [address] Triglycerides Fasting 60 mg/dL Normal 0-150 [facility] [place] Comment on above: Result Comment: ATP III Triglycerides Classification is Normal. Performed By: #### L IPDF #### [facility] [address] [place] [address] TSH w/Reflexon 07-21-2024 TSH w/Reflex 2.260 uIU/mL Normal 0.440-3.86 [facility] Comment on above: Result Comment: Free T4 will automatically reflex with a TSH result of <0.270 or >4.200 Performed By: #### T SHR #### [facility] [address] [place] [address] PAP I-G w/rfx hrHPV-Aptimaon 05-05-2024 ADEQ Comment Normal . [facility] Comment on above: Order Comment: Speci men Comment: [id number] Specimen Comment: Source.............Cervix Specimen Comment: LMP / Prev Treat...[id number] Specimen Comment: No. of containers..01 ThinPrep Vial Result Comment: Sati sfactory for evaluation. Endocervical and/or squamous metaplastic cells (endocervical component) are present. Performed By: #### L 7400.0353 #### [facility] [address] [place], [place], [id number] COMM . Normal . [facility] Comment on above: Order Comment: Speci men Comment: [id number] Specimen Comment: Source.............Cervix Specimen Comment: LMP / Prev Treat...[id number] Specimen Comment: No. of containers..01 ThinPrep Vial Performed By: #### L 7400.0353 #### [facility] [address] [place], [place], [address] COMMENT Comment Normal . [facility] Comment on above: Order Comment: Speci men Comment: [id number] Specimen Comment: Source.............Cervix Specimen Comment: LMP / Prev Treat...[id number] Specimen Comment: No. of containers..01 ThinPrep Vial Result Comment: This liquid based ThinPrep(R) pap test was screened with the use of an image guided system. Performed By: #### L 7400.0353 #### [facility] [address] [place], [place], [address] DIAG Comment Normal . [facility] Comment on above: Order Comment: Speci men Comment: [id number] Specimen Comment: Source.............Cervix Specimen Comment: LMP / Prev Treat...[id number] Specimen Comment: No. of containers..01 ThinPrep Vial Result Comment: NEGA TIVE FOR INTRAEPITHELIAL LESION OR MALIGNANCY. Performed By: #### L 7400.0353 #### [facility] [address] [place], [address] HPV RFLX Comment Normal . [facility] Comment on above: Order Comment: Speci men Comment: [id number] Specimen Comment: Source.............Cervix Specimen Comment: LMP / Prev Treat...[id number] Specimen Comment: No. of containers..01 ThinPrep Vial Result Comment: The HPV DNA reflex criteria were not met with this specimen result therefore, no HPV testing was performed. Performed at: [address] [id number] Hospice Social Worker: Shy Zelaya MD, Phone: [phone] Performed By: #### L 7400.0353 #### [facility] [address] [place], [address] PAPSMR Comment Normal . [facility] Comment on above: Order Comment: Speci men Comment: [id number] Specimen Comment: Source.............Cervix Specimen Comment: LMP / Prev Treat...[id number] Specimen Comment: No. of containers..01 ThinPrep Vial Result Comment: The Pap smear is a screening test designed to aid in the detection of premalignant and malignant conditions of the uterine cervix. It is not a diagnostic procedure and should not be used as the sole means of detecting cervical cancer. Both false-positive and false-negative reports do occur. Performed By: #### L 7400.0353 #### [facility] [address] [place], [address] PERFORM Comment Normal . [facility] Comment on above: Order Comment: Speci men Comment: [id number] Specimen Comment: Source.............Cervix Specimen Comment: LMP / Prev Treat...[id number] Specimen Comment: No. of containers..01 ThinPrep Vial Result Comment: Pura Marinelli, Supervisor Assembly Department (ASCP) Performed By: #### L 7400.0353 #### [facility] [address] [place], [address] Account Coordinator Office Visit Reporton 04-28-2024 Account Coordinator Office Visit Report [facility] [address], [address] [place] [address] OFFICE VISIT Date of Service: 04/28/24 MR#: [id number] Acct: [id number] Name: MARTIN CASTELLANOS Rep #: [id number] : 1995 Provider: LUCINDA rodriguez Age/Sex: 28/F Location: [facility] Status: Signed Intake Vital Signs 04/13/23 10:59 04/28/24 11:14 04/28/24 11:18 Height 5 ft 4 in 5 ft 4 in 5 ft 4 in Weight: 159 lb 6 oz BMI 27.3 BP 118/76 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 Denies concerns. Moving to [place] soon. Needs refill zoloft and altavera. Last [...] oriented to person and oriented to place [facility] Head: normal to inspection Neck Neck: normal [...] - Vagina (more content not included)... Normal [facility] Absolute lymphocyte counton 02-04-2022 Lymphocytes Auto (Unsp spec) [#/Vol] 1.29 10*3/uL 0.83-4.51 [facility] Work Phone: Basophil percentageon 2021 Basophils/100 WBC (Bld) 0.4 % 0-1 [facility] Work Phone: Eosinophils/100 WBC (Bld) 1.5 % 0-5 [facility] Work Phone: Neutrophils (Bld) [#/Vol] 5.0 10*3/uL 2.0-7.7 [facility] Work Phone: Neutrophils/100 WBC (Bld) 70.1 % 47-70 [facility] Work Phone: WBC (Bld) [#/Vol] 7.2 10*3/uL 4.4-11.0 [facility] Work Phone: Blood erythrocytes count (nu mber/volume)on 02-04-2022 RBC (Bld) [#/Vol] 4.09 10*6/uL 4.2-5.4 [facility] Work Phone: Blood hemoglobin measurement (mass/volume)on 02-04-2022 Hemoglobin (Bld) [Mass/Vol] 11.4 g/dL 12.0-15.0 [facility] Work Phone: Blood lymphocytes/100 leukoc yteson 02-04-2022 Lymphocytes/100 WBC (Bld) 18.0 % 19-41 [facility] Work Phone: Blood monocytes/100 leukocyt eson 02-04-2022 Monocytes/100 WBC (Bld) 8.7 % 0-10 [facility] Work Phone: Blood platelet mean volumeon 02-04-2022 Platelet mean volume (Bld) [Entitic vol] 10.9 fL 6.2-12.0 [facility] Work Phone: Determination of erythrocyte mean corpuscular volume (MCV)on 02-04-2022 MCV (RBC) [Entitic vol] 87.3 fL 81-99 [facility] Work Phone: Hematocrit Auto (Bld) [Volum e fraction]on 02-04-2022 Hematocrit (Bld) [Volume fraction] 35.7 % 37-47 [facility] Work Phone: Laboratory - Hematology and Cell countson 02-04-2022 Anisocytosis Ql (Bld) 1+ [facility] Work Phone: Erythrocyte distribution width (RBC) [Entitic vol] 63.8 fL 35.1-43.9 [facility] Work Phone: Erythrocyte distribution width (RBC) [Ratio] 20.4 % 11.6-14.6 [facility] Work Phone: Immature granulocytes/100 WBC (Bld) 1.300 % 0.0-0.9 [facility] Work Phone: Comment on above: IG% - Immature Granu locytes (promyelocytes, myelocytes and metamyelocytes) > 1% indicates that a LEFT SHIFT is Present. MCH (RBC) [Entitic mass] 27.9 pg 27.0-32.0 [facility] Work Phone: Nucleated RBC/100 WBC (Bld) [Ratio] 0 % 0-5 [facility] Work Phone: MCHC Auto (RBC) [Mass/Vol]on 02-04-2022 MCHC (RBC) [Mass/Vol] 31.9 g/dL 32-36 [facility] Work Phone: Platelets bldon 02-04-2022 Platelets (Bld) [#/Vol] 152 10*3/uL 150-450 [facility] Work Phone: Laboratory - Chemistry and C hemistry - challengeon 01-27-2022 Glucose Ql (U) Negative [facility] Work Phone: Laboratory - Urinalysison Protein Ql (U) Negative [facility] Work Phone: Laboratory - Chemistry and C hemistry - challengeon 01-17-2022 Glucose Ql (U) Negative [facility] Work Phone: Laboratory - Urinalysison Protein Ql (U) Negative [facility] Work Phone: Laboratory - Chemistry and C hemistry - challengeon 01-11-2022 Glucose Ql (U) Negative [facility] Work Phone: Laboratory - Urinalysison Protein Ql (U) Negative [facility] Work Phone: Laboratory - Chemistry and C hemistry - challengeon 12-20-2021 Glucose Ql (U) Negative [facility] Work Phone: Laboratory - Urinalysison Protein Ql (U) Negative [facility] Work Phone: Absolute lymphocyte counton 12-14-2021 Lymphocytes Auto (Unsp spec) [#/Vol] 1.41 10*3/uL 0.83-4.51 [facility] Work Phone: Basophil percentageon 2021 Basophil percentage 0 SEEN /hpf 0-5 [facility] Work Phone: Basophils/100 WBC (Bld) 0.3 % 0-1 [facility] Work Phone: Bilirubin [Mass/Vol] 0.20 mg/dL 0.20-1.00 [facility] Work Phone: Comment on above: For patients on eltr ombopag therapy, use of Dimension [place] TBIL is not recommended. Chloride [Moles/Vol] 108 mmol/L 98-107 [facility] Work Phone: Eosinophils/100 WBC (Bld) 0.5 % 0-5 [facility] Work Phone: Glucose [Mass/Vol] 81 mg/dL 74-106 [facility] Work Phone: Neutrophils (Bld) [#/Vol] 7.0 10*3/uL 2.0-7.7 [facility] Work Phone: Neutrophils/100 WBC (Bld) 75.7 % 47-70 [facility] Work Phone: Potassium [Moles/Vol] 3.7 mmol/L 3.5-5.1 [facility] Work Phone: Protein [Mass/Vol] 6.9 g/dL 6.4-8.2 [facility] Work Phone: Sodium [Moles/Vol] 138 mmol/L 136-145 [facility] Work Phone: WBC (Bld) [#/Vol] 9.2 10*3/uL 4.4-11.0 [facility] Work Phone: Bilirubin Test strip Ql (U)o n 12-14-2021 Bilirubin Ql (U) Negative Negative [facility] Work Phone: Blood erythrocytes count (nu mber/volume)on 12-14-2021 RBC (Bld) [#/Vol] 3.70 10*6/uL 4.2-5.4 [facility] Work Phone: Blood hemoglobin measurement (mass/volume)on 12-14-2021 Hemoglobin (Bld) [Mass/Vol] 10.5 g/dL 12.0-15.0 [facility] Work Phone: Blood lymphocytes/100 leukoc yteson 12-14-2021 Lymphocytes/100 WBC (Bld) 15.3 % 19-41 [facility] Work Phone: Blood monocytes/100 leukocyt eson 12-14-2021 Monocytes/100 WBC (Bld) 6.1 % 0-10 [facility] Work Phone: Blood platelet mean volumeon 12-14-2021 Platelet mean volume (Bld) [Entitic vol] 10.2 fL 6.2-12.0 [facility] Work Phone: Determination of erythrocyte mean corpuscular volume (MCV)on 12-14-2021 MCV (RBC) [Entitic vol] 87.3 fL 81-99 [facility] Work Phone: Hematocrit Auto (Bld) [Volum e fraction]on 12-14-2021 Hematocrit (Bld) [Volume fraction] 32.3 % 37-47 [facility] Work Phone: Ketones Test strip Ql (U)on 12-14-2021 Ketones Ql (U) 50 mg/dl Negative [facility] Work Phone: Laboratory - Chemistry and C hemistry - challengeon 12-14-2021 ALP [Catalytic activity/Vol] 69 U/L 45-117 [facility] Work Phone: ALT [Catalytic activity/Vol] 38 U/L 13-56 [facility] Work Phone: CO2 [Moles/Vol] 24.0 mmol/L 21.0-32.0 [facility] Work Phone: Globulin (S) [Mass/Vol] 4.0 g/dL 2.2-4.2 [facility] Work Phone: Urea nitrogen/Creatinine [Mass ratio] 14.2 mg/mg 10-20 [facility] Work Phone: Laboratory - Hematology and Cell countson 12-14-2021 Erythrocyte distribution width (RBC) [Entitic vol] 41.1 fL 35.1-43.9 [facility] Work Phone: Erythrocyte distribution width (RBC) [Ratio] 13.1 % 11.6-14.6 [facility] Work Phone: Immature granulocytes/100 WBC (Bld) 2.100 % 0.0-0.9 [facility] Work Phone: Comment on above: IG% - Immature Granu locytes (promyelocytes, myelocytes and metamyelocytes) > 1% indicates that a LEFT SHIFT is Present. MCH (RBC) [Entitic mass] 28.4 pg 27.0-32.0 [facility] Work Phone: Nucleated RBC/100 WBC (Bld) [Ratio] 0 % 0-5 [facility] Work Phone: MCHC Auto (RBC) [Mass/Vol]on 12-14-2021 MCHC (RBC) [Mass/Vol] 32.5 g/dL 32-36 [facility] Work Phone: Mucus LM Ql (Urine sed)on Mucus Ql (Urine sed) 0 SEEN /hpf [facility] Work Phone: Nitrite Test strip Ql (U)on 12-14-2021 Nitrite Ql (U) Negative Negative [facility] Work Phone: No Panel Informationon 12-14 Estimated Creatinine Clearance Calc 116.85 ml/min [facility] Work Phone: Estimated GFR (MDRD) Amer 146 mL/min >60 [facility] Work Phone: Comment on above: GFR Calc Estimated GFR (MDRD) Non-Af Amer 121 mL/min >60 [facility] Work Phone: Comment on above: Non- GFR Calc Thyroid Stimulating Hormone (TSH) 2.74 uIU/mL 0.358-3.74 [facility] Work Phone: Platelets bldon 12-14-2021 Platelets (Bld) [#/Vol] 189 10*3/uL 150-450 [facility] Work Phone: Protein Test strip Ql (U)on 12-14-2021 Protein Ql (U) Negative Negative [facility] Work Phone: Serum or plasma albumin tommy urement (mass/volume)on 12-14-2021 Albumin [Mass/Vol] 2.9 g/dL 3.2-5.0 [facility] Work Phone: Serum or plasma albumin/glob ulin mass ratioon 12-14-2021 Albumin/Globulin [Mass ratio] 0.7 {ratio} 0.9-2.4 [facility] Work Phone: Serum or plasma calcium tommy urement (mass/volume)on 12-14-2021 Calcium [Mass/Vol] 9.0 mg/dL 8.5-10.1 [facility] Work Phone: Serum or plasma creatinine m easurement (mass/volume)on 12-14-2021 Creatinine [Mass/Vol] 0.63 mg/dL 0.55-1.02 [facility] Work Phone: Comment on above: The validity of the calculated GFR & GFRAA in patients over 70 years has not been determined. Clinical correlation is essential. Serum or plasma urea nitroge n measurement (mass/volume)on 12-14-2021 Urea nitrogen [Mass/Vol] 9 mg/dL 7-18 [facility] Work Phone: Squamous epithelial cells de tection in urine sediment by light microscopyon 12-14-2021 Epithelial cells.squamous LM Ql (Urine sed) 0 SEEN /hpf 5-10 [facility] Work Phone: Thin prep Papanicolaou smear with manual screeningon 12-14-2021 Thin prep Papanicolaou smear with manual screening 29 U/L 15-37 [facility] Work Phone: Thin prep Papanicolaou smear with manual screening 6 5-15 [facility] Work Phone: Urine blood detectionon 07-0 RBC Ql (U) Negative Negative [facility] Work Phone: RBC Ql (U) 0 SEEN /hpf 0-5 [facility] Work Phone: Urine clarityon 12-14-2021 Clarity (U) Clear Clear [facility] Work Phone: Urine color determinationon 12-14-2021 Color (U) Yellow Yellow [facility] Work Phone: Urine glucose detectionon Glucose Ql (U) Normal mg/dl Normal [facility] Work Phone: Urine leukocyte esterase det ection by dipstickon 12-14-2021 Leukocyte esterase Test strip Ql (U) Negative Negative [facility] Work Phone: Urine pHon 12-14-2021 pH (U) 6.5 [pH] 5.0 - 8.0 [facility] Work Phone: Urine sediment bacteria coun t by microscopy (number/high power field)on 12-14-2021 Bacteria LM.HPF (Urine sed) [#/Area] 0 /[HPF] None Seen [facility] Work Phone: Urine specific gravity measu rementon 12-14-2021 Specific gravity (U) [Rel density] 1.010 1.002-1.030 [facility] Work Phone: Urobilinogen Auto test strip Ql (U)on 12-14-2021 Urobilinogen Ql (U) Normal mg/dl Normal [facility] Work Phone: Laboratory - Chemistry and C hemistry - challengeon 12-08-2021 Glucose Ql (U) Negative [facility] Work Phone: Laboratory - Urinalysison Protein Ql (U) Negative [facility] Work Phone: Laboratory - Chemistry and C hemistry - challengeon 11-25-2021 Glucose Ql (U) Negative [facility] Work Phone: Laboratory - Urinalysison Protein Ql (U) Negative [facility] Work Phone: Laboratory - Chemistry and C hemistry - challengeon 11-08-2021 Glucose Ql (U) Negative [facility] Work Phone: Laboratory - Urinalysison Protein Ql (U) Negative [facility] Work Phone: Absolute lymphocyte counton 10-26-2021 Lymphocytes Auto (Unsp spec) [#/Vol] 1.42 10*3/uL 0.83-4.51 [facility] Work Phone: Basophil percentageon 2021 Basophils/100 WBC (Bld) 0.7 % 0-1 [facility] Work Phone: Eosinophils/100 WBC (Bld) 1.9 % 0-5 [facility] Work Phone: Neutrophils (Bld) [#/Vol] 5.0 10*3/uL 2.0-7.7 [facility] Work Phone: Neutrophils/100 WBC (Bld) 66.6 % 47-70 [facility] Work Phone: WBC (Bld) [#/Vol] 7.6 10*3/uL 4.4-11.0 [facility] Work Phone: Blood erythrocytes count (nu mber/volume)on 10-26-2021 RBC (Bld) [#/Vol] 3.73 10*6/uL 4.2-5.4 [facility] Work Phone: Blood hemoglobin measurement (mass/volume)on 10-26-2021 Hemoglobin (Bld) [Mass/Vol] 11.4 g/dL 12.0-15.0 [facility] Work Phone: Blood lymphocytes/100 leukoc yteson 10-26-2021 Lymphocytes/100 WBC (Bld) 18.8 % 19-41 [facility] Work Phone: Blood monocytes/100 leukocyt eson 10-26-2021 Monocytes/100 WBC (Bld) 8.2 % 0-10 [facility] Work Phone: Blood platelet mean volumeon 10-26-2021 Platelet mean volume (Bld) [Entitic vol] 9.5 fL 6.2-12.0 [facility] Work Phone: Determination of erythrocyte mean corpuscular volume (MCV)on 10-26-2021 MCV (RBC) [Entitic vol] 93.8 fL 81-99 [facility] Work Phone: Gestational diabetes screen 1-hour screen with 50g oral glucose loadon 10-26-2021 Glucose 1 Hr post 50 g glucose PO [Mass/Vol] 96 mg/dL 70-140 [facility] Work Phone: Hematocrit Auto (Bld) [Volum e fraction]on 10-26-2021 Hematocrit (Bld) [Volume fraction] 35.0 % 37-47 [facility] Work Phone: Laboratory - Chemistry and C hemistry - challengeon 10-26-2021 Glucose Ql (U) Negative [facility] Work Phone: Laboratory - Hematology and Cell countson 10-26-2021 Erythrocyte distribution width (RBC) [Entitic vol] 44.0 fL 35.1-43.9 [facility] Work Phone: Erythrocyte distribution width (RBC) [Ratio] 12.7 % 11.6-14.6 [facility] Work Phone: Immature granulocytes/100 WBC (Bld) 3.800 % 0.0-0.9 [facility] Work Phone: Comment on above: IG% - Immature Granu locytes (promyelocytes, myelocytes and metamyelocytes) > 1% indicates that a LEFT SHIFT is Present. MCH (RBC) [Entitic mass] 30.6 pg 27.0-32.0 [facility] Work Phone: Nucleated RBC/100 WBC (Bld) [Ratio] 0 % 0-5 [facility] Work Phone: Laboratory - Urinalysison Protein Ql (U) Negative [facility] Work Phone: MCHC Auto (RBC) [Mass/Vol]on 10-26-2021 MCHC (RBC) [Mass/Vol] 32.6 g/dL 32-36 [facility] Work Phone: Platelets bldon 10-26-2021 Platelets (Bld) [#/Vol] 211 10*3/uL 150-450 [facility] Work Phone: Laboratory - Chemistry and C hemistry - challengeon 09-23-2021 Glucose Ql (U) Negative [facility] Work Phone: Laboratory - Urinalysison Protein Ql (U) Negative [facility] Work Phone: Laboratory - Chemistry and C hemistry - challengeon 08-23-2021 Glucose Ql (U) Negative [facility] Work Phone: Laboratory - Urinalysison Protein Ql (U) Negative [facility] Work Phone: Laboratory - Chemistry and C hemistry - challengeon 07-26-2021 Glucose Ql (U) Negative [facility] Work Phone: Laboratory - Urinalysison Protein Ql (U) Negative [facility] Work Phone: Absolute lymphocyte counton 06-30-2021 Lymphocytes Auto (Unsp spec) [#/Vol] 1.37 10*3/uL 0.83-4.51 [facility] Work Phone: Basophil percentageon 2021 Basophils/100 WBC (Bld) 0.4 % 0-1 [facility] Work Phone: Eosinophils/100 WBC (Bld) 0.5 % 0-5 [facility] Work Phone: Neutrophils (Bld) [#/Vol] 5.9 10*3/uL 2.0-7.7 [facility] Work Phone: Neutrophils/100 WBC (Bld) 74.2 % 47-70 [facility] Work Phone: WBC (Bld) [#/Vol] 8.0 10*3/uL 4.4-11.0 [facility] Work Phone: Blood erythrocytes count (nu mber/volume)on 06-30-2021 RBC (Bld) [#/Vol] 4.25 10*6/uL 4.2-5.4 [facility] Work Phone: Blood hemoglobin measurement (mass/volume)on 06-30-2021 Hemoglobin (Bld) [Mass/Vol] 12.8 g/dL 12.0-15.0 [facility] Work Phone: Blood lymphocytes/100 leukoc yteson 06-30-2021 Lymphocytes/100 WBC (Bld) 17.2 % 19-41 [facility] Work Phone: Blood monocytes/100 leukocyt eson 06-30-2021 Monocytes/100 WBC (Bld) 7.2 % 0-10 [facility] Work Phone: Blood platelet mean volumeon 06-30-2021 Platelet mean volume (Bld) [Entitic vol] 9.8 fL 6.2-12.0 [facility] Work Phone: Chlamydia trachomatis rRNA d etection by probe and target amplification methodon 06-30-2021 C. trachomatis rRNA ZULEMA+probe Ql (Unsp spec) Negative Negative [facility] Work Phone: Culture, urineon 06-30-2021 Bacteria identified Cx Nom (U) Culture exhibits no growth. [facility] Work Phone: Determination of erythrocyte mean corpuscular volume (MCV)on 06-30-2021 MCV (RBC) [Entitic vol] 89.4 fL 81-99 [facility] Work Phone: HIV 1 and HIV-2 antibody ass ay with HIV-1 p24 antigen detectionon 06-30-2021 HIV 1+2 Ab+HIV1 p24 Ag IA Ql Non-Reactive Nonreactive [facility] Work Phone: Hematocrit Auto (Bld) [Volum e fraction]on 06-30-2021 Hematocrit (Bld) [Volume fraction] 38.0 % 37-47 [facility] Work Phone: Laboratory - Drug toxicology on 06-30-2021 Amphetamines Ql (U) Negative [facility] Work Phone: Benzodiazepines Ql (U) Negative [facility] Work Phone: Cannabinoids Screen Ql (U) Negative [facility] Work Phone: Cocaine Ql (U) Negative [facility] Work Phone: Opiates Ql (U) Negative [facility] Work Phone: Laboratory - Hematology and Cell countson 06-30-2021 Erythrocyte distribution width (RBC) [Entitic vol] 42.3 fL 35.1-43.9 [facility] Work Phone: Erythrocyte distribution width (RBC) [Ratio] 12.8 % 11.6-14.6 [facility] Work Phone: Immature granulocytes/100 WBC (Bld) 0.500 % 0.0-0.9 [facility] Work Phone: Comment on above: IG% - Immature Granu locytes (promyelocytes, myelocytes and metamyelocytes) > 1% indicates that a LEFT SHIFT is Present. MCH (RBC) [Entitic mass] 30.1 pg 27.0-32.0 [facility] Work Phone: Nucleated RBC/100 WBC (Bld) [Ratio] 0 % 0-5 [facility] Work Phone: Laboratory - Microbiology an d Antimicrobial susceptibilityon 06-30-2021 N. gonorrhoeae DNA ZULEMA+probe Ql (Unsp spec) Negative Negative [facility] Work Phone: Comment on above: Performed at: =[facility] [address] [id number] Director: Shy Zelaya MD, Phone: [phone] MCHC Auto (RBC) [Mass/Vol]on 06-30-2021 MCHC (RBC) [Mass/Vol] 33.7 g/dL 32-36 [facility] Work Phone: No Panel Informationon 06-30 Urine Barbiturates Screen Negative [facility] Work Phone: Urine Drug Screen Comment [facility] Work Phone: Comment on above: [...] USE TESTMNEMONIC: [facility] Urine Methadone Screen Negative [facility] [place] Work Phone: Urine Methamphetamine-MDMA Screen Negative [facility] Work Phone: Hepatitis B Surface Antigen Non-Reactive Nonreactive [facility] Work Phone: Hepatitis C Antibody Non-Reactive Nonreactive [facility] Work Phone: Comment on above: Non Reactive: < 0.8 Equivocal: >/= 0.8 to < 1.0 Reactive: >/= 1.0The CDC recommends that a reactive/equivocal HCV antibody result be followed up by the HCV Nucleic Acid Amplificationtest (189903) Rubella IgG Antibody Reactive Nonreactive [facility] Work Phone: Comment on above: Antibody Results Int erpretation of Immune Status Non Reactive Presumed Non-Immune Equivocal Equivocal Reactive Presumed Immune Platelets bldon 06-30-2021 Platelets (Bld) [#/Vol] 194 10*3/uL 150-450 [facility] Work Phone: Serum Treponema species anti body detectionon 06-30-2021 Treponema sp Ab Ql (S) Non-Reactive [facility] Work Phone: Urine phencyclidine (PCP) de tectionon 06-30-2021 Phencyclidine Ql (U) Negative [facility] Work Phone: COVID-19 Antigenon 1 [...] its performance Subhash Disclaimer characteristic determined by [employer] and Subhash Disclaimer validated at [facility]. This Subhash Disclaimer test has not [...] is terminated or revoked sooner. PERFORMED BY: [place] [address] PATHOLOGIST MARBLE WORKER JORDON BOWDEN M.D. Normal [facility] Comment on above: Performed By: #### S OFKARLIEG, COVID-19 SUBHASH #### [facility] [address] [place] [address] Subhash Ag Negativeon 03-11-20 21 Subhash Ag Negative Negative Normal Negative [facility] Comment on above: Result Comment: This is a duplicate Subhash SARS Antigen (BRYSON) result to be used for statistical tracking purpose only. PERFORMED BY: [place] [address] PATHOLOGIST MARBLE WORKER JORDON BOWDEN M.D. Performed By: #### S OFIANEG, COVID-19 SUBHASH #### [facility] [address] [place], [place] [id number] [facility] Comprehensive Metabolic Empo n 02-09-2021 Albumin [Mass/Vol] 4.3 g/dL Normal 3.2-5.5 [facility] Comment on above: Performed By: #### E BS CMP, LIPID #### [facility] [address] Albumin/Globulin [Mass ratio] 1.5 {ratio} Normal [facility] Comment on above: Performed By: #### E BS CMP, LIPID #### [facility] [address] ALP [Catalytic activity/Vol] 39 U/L Normal 32-92 [facility] Comment on above: Performed By: #### E BS CMP, LIPID #### [facility] [address] ALT [Catalytic activity/Vol] 12 U/L Normal 10-60 [facility] Comment on above: Performed By: #### E BS CMP, LIPID #### [facility] [address] [place] [address] AST [Catalytic activity/Vol] 15 U/L Normal 10-42 [facility] Comment on above: Performed By: #### E BS CMP, LIPID #### [facility] [address] [place] [address] Bilirubin [Mass/Vol] 0.5 mg/dL Normal 0.3-1.2 [facility] Comment on above: Performed By: #### E BS CMP, LIPID #### [facility] [address] [place] [address] [place] Calcium [Mass/Vol] 9.5 mg/dL Normal 8.2-10.2 [facility] Comment on above: Performed By: #### E BS CMP, LIPID #### [facility] [address] [place] [address] [place] Chloride [Moles/Vol] 102 mmol/L Normal 95-114 [facility] Comment on above: Performed By: #### E BS CMP, LIPID #### [facility] [address] [place] [address] CO2 [Moles/Vol] 23.8 mmol/L Normal 22.0-30.0 [facility] Comment on above: Performed By: #### E BS CMP, LIPID #### [facility] [address] Creatinine [Mass/Vol] 0.83 mg/dL Normal 0.44-1.03 [facility] Comment on above: Performed By: #### E BS CMP, LIPID #### [facility] [address] Estimated GFR ( Radha > 60 Normal [facility] Comment on above: Result Comment: GFR estimated reference range: According to KDOQI guidelines, <60 ml/min/1.73m2 is sufficient to diagnose a patient with chronic kidney disease. Performed By: #### E BS CMP, LIPID #### [facility] [address] Estimated GFR (Non- Am > 60 Normal [facility] Comment on above: Performed By: #### E BS CMP, LIPID #### [facility] [address] Globulin (S) [Mass/Vol] 2.9 g/dL Normal [facility] Comment on above: Performed By: #### E BS CMP, LIPID #### [address] Glucose [Mass/Vol] 77 mg/dL Normal 70-100 [facility] Comment on above: Performed By: #### E BS CMP, LIPID #### [facility] [address] [place] [address] [place] Potassium [Moles/Vol] 3.4 mmol/L Low 3.5-5.1 [facility] Comment on above: Performed By: #### E BS CMP, LIPID #### [facility] [address] [place] [id number] [place] Protein [Mass/Vol] 7.2 g/dL Normal 6.1-7.9 [facility] Comment on above: Performed By: #### E BS CMP, LIPID #### [facility] [address] [place] [id number] [place] Sodium [Moles/Vol] 136 mmol/L Normal 136-146 [facility] Comment on above: Performed By: #### E BS CMP, LIPID #### [facility] [address] [place] [address] [place] Urea nitrogen [Mass/Vol] 7 mg/dL Low - [facility] Comment on above: Performed By: #### E BS CMP, LIPID #### [facility] [address] [place] [address] [place] Lipid Panelon 02-09-2021 Cholesterol [Mass/Vol] 218 mg/dL High 140-200 [facility] Comment on above: Result Comment: Chol less than 200 mg/dl low risk Chol 201-239 mg/dl borderline risk Chol 240 mg/dl and greater high risk Performed By: #### E BS CMP, LIPID #### [facility] [address] Cholesterol in HDL [Mass/Vol] 75 mg/dL Normal 35-85 [facility] Comment on above: Result Comment: HDL CHOL ATP-III CLASSIFICATION Cardiovascular Risk HDL > or equal to 60 mg/dL LOW HDL < 40 mg/dL HIGH Performed By: #### E BS CMP, LIPID #### [facility] [address] [place] [address] [place] Cholesterol.total/Chol esterol in HDL [Mass ratio] 2.9 {ratio} Normal <5.0 [facility] Comment on above: Result Comment: PERF ORMED BY: [place] [address] PATHOLOGIST MARBLE WORKER JORDON BOWDEN M.D. Performed By: #### E BS CMP, LIPID #### [facility] [address] [place] [address] [place] LDL Cholesterol,Calculated 126 mg/dL High 0-100 [facility] Comment on above: Result Comment: LDL ATP III CLASSIFICATION LDL less than 100 mg/dL Optimal LDL 100-129 mg/dL Near or above optimal LDL 130-159 mg/dL Borderline high LDL 160-189 mg/dL High LDL greater than 189 mg/dL Very high Performed By: #### E BS CMP, LIPID #### [facility] [address] [place] [address] [place] Triglyceride w/Reflex 84 mg/dL Normal 35-149 [facility] Comment on above: Result Comment: TRIG ATP III CLASSIFICATION TRIG less than 150 mg/dL Normal TRIG 150-199 mg/dL Borderline high TRIG 200-500 mg/dL High TRIG greater than 500 mg/dL Very high Standard traceable to the Center for Disease Conrtrol and Prevention (CDC) test method. Performed By: #### E BS CMP, LIPID #### [facility] [address] VLDL CHOLESTEROL 16 mg/dL Normal [facility] Comment on above: Performed By: #### E BS CMP, LIPID #### [facility] [address] [place] [address] [facility] HPV Auto Reflex PAP (77465)O rdered By: Probation Agent on 08-09-2020 HPV Auto Reflex PAP (03031) [facility] Normal [facility]; [facility] Work Phone: Comment on above: NEGATIVE FOR INTRAEP ITHELIAL LESION OR MALIGNANCY.Satisfactory for evaluation. No endocervical component is identified.Z01.419Amanda Monica Tee, Supervisor Assembly Department (ASCP) Source.............C ervix;EndocervixNo. of containers..01 ThinPrep VialPATIENT NOT FASTINGPERFORMED BY: LabAccelitecQdnapreqmn[address] [id number] Information: [id number] HPV Auto Reflex PAP (78430) . Normal [facility]; [facility] Work Phone: Comment on above: Source.............C ervix;EndocervixNo. of containers..01 ThinPrep VialPATIENT NOT FASTINGPERFORMED BY: Mobile Authentication[address] [id number] Information: [id number] HPV Auto Reflex PAP (85821) PAPSMR Normal [facility]; [facility] [...] of containers..01 ThinPrep VialPATIENT NOT FASTINGPERFORMED BY: [employer]120 [address] [employer] PlazaStatesman Travel Grouprleston W [id number] Information: [id number] Thin prep Pap (15013)Ordered By: Probation Agent on 06-17-2019 Thin prep Pap (79819) 21-24 Normal Com prehens[facility]; [facility] Work Phone: Comment on above: Source.............C ervix;EndocervixNo. of containers..01 ThinPrep VialPATIENT NOT FASTINGPERFORMED BY: =G LabGlass[employer]120 [employer] PlaOnePageCRMrleston W [id number] BY: [employer]120 Vidtelrl[place] [id number] Information: [id number] IGP, CtNg, rfx Aptima HPV CUon 06-10-2018 C. trachomatis rRNA ZULEMA+probe Ql (Cvx) Negative Normal [facility] Work Phone: Comment on above: No. of containers..0 1 ThinPrep VialPERFORMED BY: =G LabGlass[employer]120 [employer] PlaOnePageCRMrleston W [id number] BY: [employer]120 Predictive BioscienceszaStatesman Travel Grouprleston [place] [id number] Microscopic observation Other stain Nom (Unsp spec) . Normal Comprehens marie [facility] Work Phone: Comment on above: No. of containers..0 1 ThinPrep VialPERFORMED BY: =G [employer] [facility] [place] [id number] BY: WB [facility] Xzxiwyyfue8[address] [place] [facility] [place] [id number] N. gonorrhoeae rRNA ZULEMA+probe Ql (Cvx) Negative Normal [facility] Work Phone: Comment on above: No. of containers..0 1 ThinPrep VialPERFORMED BY: =G [facility] Lqgwprnvzj524 [place] [facility] [place] [id number] BY: WB [facility] Gocesdmumk093 [place] [facility] [place] [id number] Pathology report final diagnosis Narrative [facility] Normal Comprehensiv e [facility] Work Phone: Comment on above: NEGATIVE FOR INTRAEP ITHELIAL LESION AND MALIGNANCY.Satisfactory for evaluation. No endocervical component is identified.Z01.419Bruce Ck Bruner Supervisor Assembly Department (ASCP) No. of containers..0 1 ThinPrep VialPERFORMED BY: =G [facility] Bqzoryqpcu429 [place] [facility] [place] [id number] BY: WB LabAccelitecCzjifejjri625 [facility] HospitalJessicab[facility]onne [facility] [place] [id number] IGP, CtNg, rfx Aptima HPV ASCU PAPSMR [...] containers..0 1 ThinPrep VialPERFORMED BY: =G [facility] Zfhkyaxtvh369 [place] [facility] [place] [id number] BY: WB [facility] Tcxsmskddq554 [facility] HospitalEvanrthe [facility] [place] [id number] Thin prep Pap (47548) (no ST D testing)on 06-10-2018 Thin prep Pap (69740) (no STD testing) 21-24 Normal [facility] Work Phone: Comment on above: No. of containers..0 1 ThinPrep VialPERFORMED BY: =G LabCo[address] [id number] BY: WB LabCo Qxbwhjsswb[address] [id number] Information: [id number] Rapid Strep Test, Office (97 759)Ordered By: Katelyn Aburto on 05-23-2017 S. pyogenes Ag EIA Ql (Throat) Negative Normal [facility]; [facility] Work Phone: S. pyogenes Ag IA Ql (Unsp spec) Negative Normal [facility] Work Phone: VARICELLA-ZOSTER ANTBODY ([phone])on 09-11-2016 VZV IgG IA Qn (S) 3001 {index} Normal Compr e[facility] Work Phone: Comment on above: Negative <135 Equivo tristin 135 - 165 Positive >165 A positive result generally indicates exposure to the pathogen or administration of specific immunoglobulins, but it is not indication of active infection or stage of disease. PATIENT NOT FASTINGP ERFORMED BY: [facility] [id number] [facility] [id number] Information: [id number] NuSwab STD (trich/BV/GC/clemente W/ Herpes) (81008)on 08-25-2016 A. vaginae DNA ZULEMA+probe Ql (Vag fld) Low - 0 [facility] Work Phone: Comment on above: PATIENT NOT FASTINGP ERFORMED BY: [facility] Fwqkpvjxxr6230 [facility] [id number] Information: SRC:VA Bacterial vaginosis associated bacterium 2 DNA ZULEMA+probe Ql (Vag fld) Low - 0 Normal [facility] Work Phone: Comment on above: PATIENT NOT FASTINGP ERFORMED BY: [address] [id number] Information: SRC:[place] C. albicans DNA ZULEMA+probe Ql (Vag fld) Negative Normal Comprehen [facility] Internal [facility] Work Phone: Comment on above: PATIENT NOT FASTINGP ERFORMED BY: [address] [id number] Information: SRC:[place] C. glabrata DNA ZULEMA+probe Ql (Vag fld) Negative Normal Comprehen [facility] Internal Medicine Work Phone: Comment on above: This test was develo ped and its performance characteristics determinedby [facility]. It has not been cleared or approved by the Food and DrugAdministration. The FDA has determined that such clearance orapproval is not necessary. PATIENT NOT FASTINGP ERFORMED BY: [address] [id number] Information: SRC:[place] C. trachomatis rRNA ZULEMA+probe Ql (Unsp spec) Negative Normal [facility] Work Phone: Comment on above: PATIENT NOT FASTINGP ERFORMED BY: [address] [id number] Information: SRC:[place] HSV 1 DNA ZULEMA+probe Ql (Unsp spec) Negative Normal [facility] Work Phone: Comment on above: PATIENT NOT FASTINGP ERFORMED BY: [address] [id number] Information: SRC:[place] HSV 2 DNA ZULEMA+probe Ql (Unsp spec) Negative Normal [facility] Work Phone: Comment on above: PATIENT NOT FASTINGP ERFORMED BY: [address] [id number] Information: SRC:[place] Megasphaera sp type 1 DNA [...] was developed and its performance characteristicsdetermined by [facility]. It has not been cleared or approvedby the Food and Drug Administration. The FDA has determinedthat such clearance or approval is not necessary. PATIENT NOT FASTINGP ERFORMED BY: [address] [id number] Information: SRC:[place] N. gonorrhoeae rRNA ZULEMA+probe Ql (Unsp spec) Negative Normal [facility] Work Phone: Comment on above: PATIENT NOT FASTINGP ERFORMED BY: [address] [id number] Information: SRC:[place] T. vaginalis rRNA ZULEMA+probe Ql (Unsp spec) Negative Normal [facility] Work Phone: Comment on above: PATIENT NOT FASTINGP ERFORMED BY: [address] [id number] Information: SRC:[place] NuSwab STD (trich/BV/GC/clemente W/ Herpes) ([id number])Ordered By: Probation Agent on 08-25-2016 C. albicans DNA ZULEMA+probe Ql (Vag fld) Negative Normal [facility]; [facility] Work Phone: Comment on above: PATIENT NOT FASTINGP ERFORMED BY: [address] [id number] Information: SRC:[place] C. glabrata DNA ZULEMA+probe Ql (Vag fld) Negative Normal [facility]; [facility] Work Phone: Comment on above: This test was develo ped and its performance characteristics determinedby [facility]. It has not been cleared or approved by the Food and DrugAdministration. The FDA has determined that such clearance orapproval is not necessary. PATIENT NOT FASTINGP ERFORMED BY: [address] [id number] Information: SRC:[place] C. trachomatis rRNA ZULEMA+probe Ql (Unsp spec) Negative Normal [facility]; [facility] Work Phone: Comment on above: PATIENT NOT FASTINGP ERFORMED BY: [address] [id number] Information: SRC:[place] HSV 1 DNA ZULEMA+probe Ql (Unsp spec) Negative Normal [facility]; [facility] Work Phone: Comment on above: PATIENT NOT FASTINGP ERFORMED BY: [address] [id number] Information: SRC:[place] HSV 2 DNA ZULEMA+probe Ql (Unsp spec) Negative Normal [facility]; [facility] Work Phone: Comment on above: PATIENT NOT FASTINGP ERFORMED BY: [address] [id number] Information: SRC:[place] N. gonorrhoeae rRNA ZULEMA+probe Ql (Unsp spec) Negative Normal [facility]; [facility] Work Phone: Comment on above: PATIENT NOT FASTINGP ERFORMED BY: [address] [id number] Information: SRC:[place] T. vaginalis rRNA ZULEMA+probe Ql (Unsp spec) Negative Normal [facility]; [facility] Work Phone: Comment on above: PATIENT NOT FASTINGP ERFORMED BY: [address] [id number] Information: SRC:[place] Pap IG (Image Guided)on 08-09 Microscopic observation Other stain Nom (Unsp spec) . Normal [facility] Work Phone: Comment on above: Source.............C ervix;EndocervixNo. of containers..01 CYTYC Thin Prep VialPATIENT NOT FASTINGPERFORMED BY: =G [facility] [address] [id number] BY: WB [facility] [address] [id number] Pathology report final diagnosis Narrative SPRCS Normal [facility] Work Phone: Comment on above: NEGATIVE FOR INTRAEP ITHELIAL LESION AND MALIGNANCY.Satisfactory for evaluation. No endocervical component is identified.Z01.419Rensarahi Can, Supervisor Assembly Department ([facility]) Source.............C ervix;EndocervixNo. of containers..01 CYTYC Thin Prep VialPATIENT NOT FASTINGPERFORMED BY: =G [employer] [id number] BY: [facility] D[address] [id number] Pap IG (Image Guided) PAPSMR Normal [place] [...] Thin Prep VialPATIENT NOT FASTINGPERFORMED BY: =G [employer] [place] [address] [id number] BY: [facility] [address]wo[address] [id number] Thin Prep Pap ([id number])on 08-09 Thin Prep Pap ([id number]) AGE6 Normal [facility] prehensive [facility] Medicine Work Phone: Comment on above: <21 or >65 or no age provided Source.............C ervix;EndocervixNo. of containers..01 CYTYC Thin Prep VialPATIENT NOT FASTINGPERFORMED BY: =G Mobile [employer]hentication41 [address] StreetStatesman Travel GroupAllegheny General Hospital [id number] BY: [facility] [id number] Information: [id number] No Panel Information Group B Streptococcus Culture Group B Beta Streptococcus is not isolated. [facility] Work Phone: Vital Signs Date Time Vital Sign Value Performing Clinician Facility 04-06-2025 14:20-0400 Body height 162.56 cm Kiya Percy [employer] Work Phone: [facility] 04-06-2025 14:18-0400 Body mass index (BMI) [Ratio] 35.4 kg/m2 Kiya Percy [employer] Work Phone: [facility] 04-06-2025 14:18-0400 Body weight 93.49 kg Kiya Percy [employer] Work Phone: [facility] 04-06-2025 14:18-0400 Diastolic blood pressure 81 mm[Hg] Kiya Percy [employer] Work Phone: [facility] 04-06-2025 14:18-0400 Systolic blood pressure 126 mm[Hg] Kiya Percy [employer] Work Phone: [facility] 03-23-2025 13:40-0400 Body mass index (BMI) [Ratio] 35.5 kg/m2 Kiya Percy [employer] Work Phone: [facility] 03-23-2025 13:40-0400 Body weight 93.92 kg Kiya Percy [employer] Work Phone: [facility] 03-23-2025 13:40-0400 Diastolic blood pressure 81 mm[Hg] Kiya Percy [employer] Work Phone: [facility] 03-23-2025 13:40-0400 Systolic blood pressure 112 mm[Hg] Kiya Percy [employer] Work Phone: [facility] 03-09-2025 09:27-0400 Body height 162.56 cm Kiya Percy [employer] Work Phone: [facility] 03-09-2025 09:27-0400 Body mass index (BMI) [Ratio] 34.9 kg/m2 Kiya Percy [employer] Work Phone: [facility] 03-09-2025 09:27-0400 Body weight 92.24 kg Kiya Percy [employer] Work Phone: [facility] 03-09-2025 09:27-0400 Diastolic blood pressure 79 mm[Hg] Kiya Percy [employer] Work Phone: [facility] 03-09-2025 09:27-0400 Systolic blood pressure 119 mm[Hg] Kiya Percy [employer] Work Phone: [facility] 02-25-2025 09:45-0400 Body height 162.56 cm Kiya Percy [employer] Work Phone: [facility] 02-25-2025 09:45-0400 Body mass index (BMI) [Ratio] 34.5 kg/m2 Kiya Percy [employer] Work Phone: [facility] 02-25-2025 09:45-0400 Body weight 91.28 kg Kiya Percy [employer] Work Phone: [facility] 02-25-2025 09:45-0400 Diastolic blood pressure 82 mm[Hg] Kiya Percy [employer] Work Phone: [facility] 02-25-2025 09:45-0400 Systolic blood pressure 131 mm[Hg] Kiya Percy [employer] Work Phone: [facility] 02-11-2025 09:41-0400 Body height 162.56 cm Kiya Percy [employer] Work Phone: [facility] 02-11-2025 09:39-0400 Body mass index (BMI) [Ratio] 34.3 kg/m2 Kiya Percy [employer] Work Phone: [facility] 02-11-2025 09:39-0400 Body weight 90.77 kg Kiya Percy [employer] Work Phone: [facility] 02-11-2025 09:39-0400 Diastolic blood pressure 80 mm[Hg] Kiya Percy [employer] Work Phone: [facility] 02-11-2025 09:39-0400 Systolic blood pressure 127 mm[Hg] Kiya Percy [employer] Work Phone: [facility] 01-26-2025 09:18-0400 Body height 162.56 cm Kiya Percy [employer] Work Phone: [facility] 01-26-2025 09:18-0400 Body mass index (BMI) [Ratio] 33.8 kg/m2 Kiya Percy [employer] Work Phone: [facility] 01-26-2025 09:18-0400 Body weight 89.41 kg Kiya Percy [employer] Work Phone: [facility] 01-26-2025 09:18-0400 Diastolic blood pressure 76 mm[Hg] Kiya Percy [employer] Work Phone: [facility] 01-26-2025 09:18-0400 Systolic blood pressure 131 mm[Hg] Kiya Percy [employer] Work Phone: [facility] 12-31-2024 08:38-0400 Body height 162.56 cm Kiya Percy [employer] Work Phone: [facility] 12-31-2024 08:37-0400 Body mass index (BMI) [Ratio] 33 kg/m2 Kiya Percy [employer] Work Phone: [facility] 12-31-2024 08:37-0400 Body weight 87.31 kg Kiya Percy [employer] Work Phone: [facility] 12-31-2024 08:37-0400 Diastolic blood pressure 74 mm[Hg] Kiya Percy [employer] Work Phone: [facility] 12-31-2024 08:37-0400 Systolic blood pressure 108 mm[Hg] Kiya Percy [employer] Work Phone: [facility] 12-01-2024 10:16-0400 Body height 162.56 cm Kiya Percy [employer] Work Phone: [facility] 12-01-2024 10:16-0400 Body mass index (BMI) [Ratio] 31.1 kg/m2 Kiya Percy [employer] Work Phone: [facility] 12-01-2024 10:16-0400 Body weight 82.21 kg Kiya Percy [employer] Work Phone: [facility] 12-01-2024 10:16-0400 Diastolic blood pressure 73 mm[Hg] Kiya Percy [employer] Work Phone: [facility] 12-01-2024 10:16-0400 Systolic blood pressure 137 mm[Hg] Kiya Percy [employer] Work Phone: [facility] 11-05-2024 08:44-0400 Body height 162.56 cm Kiya Percy [employer] Work Phone: [facility] 11-05-2024 08:41-0400 Body mass index (BMI) [Ratio] 30.7 kg/m2 Kiya Percy [employer] Work Phone: [facility] 11-05-2024 08:41-0400 Body weight 81.24 kg Kiya Percy [employer] Work Phone: [facility] 11-05-2024 08:41-0400 Diastolic blood pressure 85 mm[Hg] Kiya Percy [employer] Work Phone: [facility] 11-05-2024 08:41-0400 Systolic blood pressure 125 mm[Hg] Kiya Percy [employer] Work Phone: [facility] 09-29-2024 10:27-0400 Body height 162.56 cm Kiya Percy [employer] Work Phone: [facility] 09-29-2024 10:27-0400 Body mass index (BMI) [Ratio] 29.4 kg/m2 Kiya Percy [employer] Work Phone: [facility] 09-29-2024 10:27-0400 Body weight 77.67 kg Kiya Percy [employer] Work Phone: [facility] 09-29-2024 10:27-0400 Diastolic blood pressure 78 mm[Hg] Kiya Percy [employer] Work Phone: [facility] 09-29-2024 10:27-0400 Systolic blood pressure 129 mm[Hg] Kiya Percy [employer] Work Phone: [facility] 09-19-2022 08:17-0400 Body height 167.64 cm Lilian Sepidehrb PRICING INTERN [facility]; [facility] Work Phone: 09-19-2022 08:17-0400 Body mass index (BMI) [Ratio] 24.86 kg/m2 Lilian Slarb PRICING INTERN [facility]; [facility] Work Phone: 09-19-2022 08:17-0400 Body surface area Derived from formula 1.79 m2 Lilian Slarb PRICING INTERN [facility]; [facility] Work Phone: 09-19-2022 08:17-0400 Body temperature 98.1 [degF] Lilian Slarb PRICING INTERN [facility]; [facility] Work Phone: Comment on above: Method: Temporal 09-19-2022 08:17-0400 Body weight 69.85 kg Lilian Slarb PRICING INTERN [facility]; [facility] Work Phone: 09-19-2022 08:17-0400 Diastolic blood pressure 76 mm[Hg] Lilian Slarb PRICING INTERN [facility]; [facility] Work Phone: Comment on above: Patient Position: Sitting; Cuff Location : Left Arm; Cuff Size: Standard 09-19-2022 08:17-0400 Heart rate 95 /min Lilian Slarb PRICING INTERN [facility]; [facility] Work Phone: Comment on above: Pattern: Regular 09-19-2022 08:17-0400 Respiratory rate 16 /min Lilian Pineda PRICING INTERN [facility]; [facility] Work Phone: Comment on above: Pattern: Unlabored 09-19-2022 08:17-0400 SaO2% (BldA) [Mass fraction] 98 % Lilian Pineda PRICING INTERN [facility]; [facility] Work Phone: Comment on above: Room air 09-19-2022 08:17-0400 Systolic blood pressure 114 mm[Hg] Lilian Pineda PRICING INTERN [facility]; [facility] Work Phone: Comment on above: Patient Position: Sitting; Cuff Location : Left Arm; Cuff Size: Standard 02-06-2022 08:32-0400 Body temperature 97.7 [degF] [employer] Sowmya Rodrigueza [employer] Work Phone: [facility] Work Phone: 02-06-2022 08:32-0400 Diastolic blood pressure 86 mm[Hg] [employer] Sowmya Moralesesa [employer] Work Phone: [facility] Work Phone: 02-06-2022 08:32-0400 Heart rate 76 /min [employer] Sowmya Rodrigueza [employer] Work Phone: [facility] Work Phone: 02-06-2022 08:32-0400 Respiratory rate 16 /min [employer] Sowmya Moralesesa [employer] Work Phone: [facility] Work Phone: 02-06-2022 08:32-0400 SaO2% (BldA) [Mass fraction] 96 % [employer] Sowmya Moralesesa [employer] Work Phone: [facility] Work Phone: 02-06-2022 08:32-0400 Systolic blood pressure 128 mm[Hg] [employer] Sowmya Moralesesa [employer] Work Phone: [facility] Work Phone: 02-04-2022 07:12-0400 Body height 162.56 cm [employer] Sowmya Cidavida [employer] Work Phone: [facility] Work Phone: 02-04-2022 07:12-0400 Body mass index (BMI) [Ratio] 32.8 kg/m2 [employer] Sowmya Ciesa [employer] Work Phone: [facility] Work Phone: 02-04-2022 07:12-0400 Body weight 86.7 kg [employer] Sowmya Ciesa [employer] Work Phone: [facility] Work Phone: 02-03-2022 14:33-0400 Body mass index (BMI) [Ratio] 32.4 kg/m2 [employer] Sowmya Ciesa [employer] Work Phone: [facility] Work Phone: 02-03-2022 14:33-0400 Body weight 85.72 kg [employer] Sowmya Ciesa [employer] Work Phone: [facility] Work Phone: 02-03-2022 14:33-0400 Diastolic blood pressure 60 mm[Hg] [employer] Sowmya Ciesa [employer] Work Phone: [facility] Work Phone: 02-03-2022 14:33-0400 Systolic blood pressure 124 mm[Hg] [employer] Sowmya Ciesa [employer] Work Phone: [facility] Work Phone: 01-27-2022 10:58-0400 Body mass index (BMI) [Ratio] 32 kg/m2 [employer] Sowmya Ciesa [employer] Work Phone: [facility] Work Phone: 01-27-2022 10:58-0400 Body weight 84.59 kg [employer] Sowmya Ciesa [employer] Work Phone: [facility] Work Phone: 01-27-2022 10:58-0400 Diastolic blood pressure 76 mm[Hg] [employer] Sowmya Ciesa [employer] Work Phone: [facility] Work Phone: 01-27-2022 10:58-0400 Systolic blood pressure 128 mm[Hg] [employer] Sowmya Ciesa [employer] Work Phone: [facility] Work Phone: 01-17-2022 11:19-0400 Diastolic blood pressure 70 mm[Hg] [employer] Sowmya Ciesa [employer] Work Phone: [facility] Work Phone: 01-17-2022 11:19-0400 Systolic blood pressure 98 mm[Hg] [employer] Sowmya Ciesa [employer] Work Phone: [facility] Work Phone: 01-17-2022 11:19-0400 Body mass index (BMI) [Ratio] 31.7 kg/m2 [employer] Sowmya Ciesa [employer] Work Phone: [facility] Work Phone: 01-17-2022 11:19-0400 Body weight 83.91 kg [employer] Sowmya Ciesa [employer] Work Phone: [facility] Work Phone: 01-11-2022 08:54-0400 Body mass index (BMI) [Ratio] 31.4 kg/m2 [employer] Sowmya Ciesa [employer] Work Phone: [facility] Work Phone: 01-11-2022 08:54-0400 Body weight 83 kg [employer] Sowmya Ciesa [employer] Work Phone: [facility] Work Phone: 01-11-2022 08:54-0400 Diastolic blood pressure 82 mm[Hg] [employer] Sowmya Ciesa [employer] Work Phone: [facility] Work Phone: 01-11-2022 08:54-0400 Systolic blood pressure 122 mm[Hg] [employer] Sowmya Ciesa [employer] Work Phone: [facility] Work Phone: 01-02-2022 13:19-0400 Body height 162.56 cm [employer] Sowmya Ciesa [employer] Work Phone: [facility] Work Phone: 01-02-2022 13:18-0400 Body mass index (BMI) [Ratio] 30.9 kg/m2 [employer] Sowmya Ciesa [employer] Work Phone: [facility] Work Phone: 01-02-2022 13:18-0400 Body weight 81.64 kg [employer] Sowmya Carmenesa [employer] Work Phone: [facility] Work Phone: 01-02-2022 13:18-0400 Diastolic blood pressure 74 mm[Hg] [employer] Sowmya Moralesesa [employer] Work Phone: [facility] Work Phone: 01-02-2022 13:18-0400 Systolic blood pressure 112 mm[Hg] [employer] Sowmya Moarlesesa [employer] Work Phone: [facility] Work Phone: 12-27-2021 09:35-0400 Body mass index (BMI) [Ratio] 30.2 kg/m2 [employer] Sowmya Ciesa [employer] Work Phone: [facility] Work Phone: 12-27-2021 09:35-0400 Body weight 79.83 kg [employer] Sowmya Ciesa [employer] Work Phone: [facility] Work Phone: 12-27-2021 09:35-0400 Diastolic blood pressure 79 mm[Hg] [employer] Sowmya Ciesa [employer] Work Phone: [facility] Work Phone: 12-27-2021 09:35-0400 Heart rate 107 /min [employer] Sowmya Rodrigueza [employer] Work Phone: [facility] Work Phone: 12-27-2021 09:35-0400 Respiratory rate 16 /min [employer] Sowmya Rodrigueza [employer] Work Phone: [facility] Work Phone: 12-27-2021 09:35-0400 SaO2% (BldA) [Mass fraction] 99 % [employer] Sowmya Rodrigueza [employer] Work Phone: [facility] Work Phone: 12-27-2021 09:35-0400 Systolic blood pressure 129 mm[Hg] [employer] Sowmya Rodrigueza [employer] Work Phone: [facility] Work Phone: 12-20-2021 10:39-0400 Body mass index (BMI) [Ratio] 30.2 kg/m2 [employer] Sowmya Rodrigueza [employer] Work Phone: [facility] Work Phone: 12-20-2021 10:39-0400 Body weight 79.88 kg [employer] Sowmya Rodrigueza [employer] Work Phone: [facility] Work Phone: 12-20-2021 10:39-0400 Diastolic blood pressure 64 mm[Hg] [employer] Sowmya Rodrigueza [employer] Work Phone: [facility] Work Phone: 12-20-2021 10:39-0400 Systolic blood pressure 132 mm[Hg] [employer] Sowmya Moralesesa [employer] Work Phone: [facility] Work Phone: 12-14-2021 13:28-0400 Diastolic blood pressure 70 mm[Hg] [employer] Sowmya Moralesesa [employer] Work Phone: [facility] Work Phone: 12-14-2021 13:28-0400 Heart rate 105 /min [employer] Sowmya Baldwin [employer] Work Phone: [facility] Work Phone: 12-14-2021 13:28-0400 Respiratory rate 16 /min [employer] Sowmya Baldwin [employer] Work Phone: [facility] Work Phone: 12-14-2021 13:28-0400 SaO2% (BldA) [Mass fraction] 98 % [employer] Sowmya Baldwin [employer] Work Phone: [facility] Work Phone: 12-14-2021 13:28-0400 Systolic blood pressure 115 mm[Hg] [employer] Sowmya Baldwin [employer] Work Phone: [facility] Work Phone: 12-14-2021 10:57-0400 Body height 162.56 cm [employer] Sowmya Baldwin [employer] Work Phone: [facility] Work Phone: 12-14-2021 10:57-0400 Body mass index (BMI) [Ratio] 29.5 kg/m2 [employer] Sowmya Baldwin [employer] Work Phone: [facility] Work Phone: 12-14-2021 10:57-0400 Body temperature 97.8 [degF] [employer] Sowmya Baldwin [employer] Work Phone: [facility] Work Phone: 12-14-2021 10:57-0400 Body weight 78.01 kg [employer] Sowmya Baldwin [employer] Work Phone: [facility] Work Phone: 12-08-2021 09:02-0400 Body mass index (BMI) [Ratio] 29.5 kg/m2 [employer] Sowmya Baldwin [employer] Work Phone: [facility] Work Phone: 12-08-2021 09:02-0400 Body weight 78.01 kg [employer] Sowmya Ciesa [employer] Work Phone: [facility] Work Phone: 12-08-2021 09:02-0400 Diastolic blood pressure 56 mm[Hg] [employer] Sowmya Ciesa [employer] Work Phone: [facility] Work Phone: 12-08-2021 09:02-0400 Systolic blood pressure 124 mm[Hg] [employer] Sowmya Ciesa [employer] Work Phone: [facility] Work Phone: 11-25-2021 09:53-0400 Body mass index (BMI) [Ratio] 29 kg/m2 [employer] Sowmya Ciesa [employer] Work Phone: [facility] Work Phone: 11-25-2021 09:53-0400 Body weight 76.71 kg [employer] Sowmya Ciesa [employer] Work Phone: [facility] Work Phone: 11-25-2021 09:53-0400 Diastolic blood pressure 70 mm[Hg] [employer] Sowmya Ciesa [employer] Work Phone: [facility] Work Phone: 11-25-2021 09:53-0400 Systolic blood pressure 120 mm[Hg] [employer] Sowmya Ciesa [employer] Work Phone: [facility] Work Phone: 11-08-2021 10:24-0400 Body mass index (BMI) [Ratio] 28.5 kg/m2 [employer] Sowmya Ciesa [employer] Work Phone: [facility] Work Phone: 11-08-2021 10:24-0400 Body weight 75.4 kg [employer] Sowmya Ciesa [employer] Work Phone: [facility] Work Phone: 11-08-2021 10:24-0400 Diastolic blood pressure 60 mm[Hg] [employer] Sowmya Ciesa [employer] Work Phone: [facility] Work Phone: 11-08-2021 10:24-0400 Systolic blood pressure 100 mm[Hg] [employer] Sowmya Ciesa [employer] Work Phone: [facility] Work Phone: 10-26-2021 08:31-0400 Body mass index (BMI) [Ratio] 28.2 kg/m2 [employer] Sowmya Carmenesa [employer] Work Phone: [facility] Work Phone: 10-26-2021 08:31-0400 Body weight 74.55 kg [employer] Sowmya Moralesesa [employer] Work Phone: [facility] Work Phone: 10-26-2021 08:31-0400 Diastolic blood pressure 70 mm[Hg] [employer] Sowmya Moralesesa [employer] Work Phone: [facility] Work Phone: 10-26-2021 08:31-0400 Systolic blood pressure 110 mm[Hg] [employer] Sowmya Moralesesa [employer] Work Phone: [facility] Work Phone: 10-26-2021 08:31-0400 Body height 162.56 cm [employer] Sowmya Moralesesa HEAD [employer]ACH Work Phone: [facility] Work Phone: 10-26-2021 08:31-0400 Body mass index (BMI) [Ratio] 28.2 kg/m2 HEAD [employer]-C Sowmya Moralesesa HEAD [employer] CO[employer] Work Phone: [facility] Work Phone: 10-26-2021 08:31-0400 Body weight 74.55 kg HEAD [employer]-C Sowmya Moralesesa HEAD [employer] Work Phone: [facility] Work Phone: 10-26-2021 08:31-0400 Diastolic blood pressure 70 mm[Hg] HEAD [employer]-C Sowmya Ciesa HEAD [employer] Work Phone: [facility] Work Phone: 10-26-2021 08:31-0400 Systolic blood pressure 110 mm[Hg] HEAD [employer]-C Sowmya Rodrigueza HEAD [employer] Work Phone: [facility] Work Phone: 09-23-2021 09:45-0400 Body mass index (BMI) [Ratio] 26.6 kg/m2 HEAD [employer]-C Sowmya Rodrigueza HEAD [employer] Work Phone: [facility] Work Phone: 09-23-2021 09:45-0400 Body weight 70.36 kg HEAD [employer]-C Sowmya Rodrigueza HEAD [employer] Work Phone: [facility] Work Phone: 09-23-2021 09:45-0400 Diastolic blood pressure 70 mm[Hg] HEAD [employer]-C Sowmya Moralesesa HEAD [employer] Work Phone: [facility] Work Phone: 09-23-2021 09:45-0400 Systolic blood pressure 130 mm[Hg] HEAD [employer]-C Sowmya Rodrigueza HEAD [employer] Work Phone: [facility] Work Phone: 08-23-2021 08:52-0400 Body mass index (BMI) [Ratio] 25.6 kg/m2 HEAD [employer]-C Sowmya Rodrigueza HEAD [employer] Work Phone: [facility] Work Phone: 08-23-2021 08:52-0400 Body weight 67.75 kg HEAD [employer]-C Sowmya Rodrigueza HEAD [employer] Work Phone: [facility] Work Phone: 08-23-2021 08:52-0400 Diastolic blood pressure 80 mm[Hg] HEAD [employer]-C Sowmya Moralesesa HEAD [employer] Work Phone: [facility] Work Phone: 08-23-2021 08:52-0400 Systolic blood pressure 110 mm[Hg] HEAD [employer]-C Sowmya Rodrigueza HEAD [employer] Work Phone: [facility] Work Phone: 08-23-2021 08:52-0400 Body mass index (BMI) [Ratio] 25.6 kg/m2 HEAD [employer]-C Sowmya Ciesa HEAD [employer] Work Phone: [facility] Work Phone: 08-23-2021 08:52-0400 Body weight 67.75 kg HEAD [employer]-C Sowyma Ciesa HEAD [employer] Work Phone: [facility] Work Phone: 08-23-2021 08:52-0400 Diastolic blood pressure 80 mm[Hg] HEAD [employer]-C Sowmya Ciesa HEAD [employer] Work Phone: [facility] Work Phone: 08-23-2021 08:52-0400 Systolic blood pressure 110 mm[Hg] HEAD [employer]-C Sowmya Ciesa HEAD [employer] Work Phone: [facility] Work Phone: 07-26-2021 08:02-0500 Body mass index (BMI) [Ratio] 25 kg/m2 HEAD [employer]-C Sowmya Ciesa HEAD [employer] Work Phone: [facility] Work Phone: 07-26-2021 08:02-0500 Body weight 66.28 kg HEAD [employer]-C Sowmya Ciesa HEAD [employer] Work Phone: [facility] Work Phone: 07-26-2021 08:02-0500 Diastolic blood pressure 80 mm[Hg] HEAD [employer]-C Sowmya Ciesa HEAD [employer] Work Phone: [facility] Work Phone: 07-26-2021 08:02-0500 Systolic blood pressure 124 mm[Hg] HEAD [employer]-C Sowmya Ciesa HEAD [employer] Work Phone: [facility] Work Phone: 06-30-2021 09:17-0500 Body mass index (BMI) [Ratio] 25 kg/m2 HEAD [employer]-C Sowmya Ciesa HEAD [employer] Work Phone: [facility] Work Phone: 06-30-2021 09:17-0500 Body weight 66.28 kg HEAD [employer]-C Sowmya Baldwin HEAD [employer] Work Phone: [facility] Work Phone: 06-30-2021 09:17-0500 Diastolic blood pressure 90 mm[Hg] HEAD [employer]-C Sowmya Baldwin HEAD [employer]ACH Work Phone: [facility] Work Phone: 06-30-2021 09:17-0500 Systolic blood pressure 140 mm[Hg] HEAD [employer]-C Sowmya Rodrigueza HEAD [employer] Work Phone: [facility] Work Phone: 08-09-2020 11:01-0500 BMI [...] 08:39-0500 Body Temperature 98.4 [degF] Ele Roselear [facility] Internal Medicine Work Phone: Comment on above: Method: Temporal 06-10-2018 08:39-0500 Body weight 67.3 kg Ele Osorio [facility] Work Phone: 06-10-2018 08:39-0500 BP Diastolic 78 mm[Hg] Ele Jo [facility] Work Phone: Comment on above: Patient Position: Sitting; Cuff Location : Left Arm; Cuff Size: Standard 06-10-2018 08:39-0500 BP Systolic 132 mm[Hg] Ele Osorio [facility] Work Phone: Comment on above: Patient Position: Sitting; Cuff Location : Left Arm; Cuff Size: Standard 06-10-2018 08:39-0500 BSA (Body Surface Area) 1.76 m2 Ele Osorio [facility] Medicine Work Phone: 06-10-2018 08:39-0500 Height 167.64 cm Ele Osorio [facility] Work Phone: 06-10-2018 08:39-0500 Pulse (Heart Rate) 113 /min Ele Osorio [facility] Work Phone: Comment on above: Pattern: Regular 06-10-2018 08:39-0500 Pulse Oximetry 98 % Sowmya Denny [facility] Work Phone: Comment on above: Room air 06-10-2018 08:39-0500 Respiratory Rate 16 /min Ele Osorio [facility] Work Phone: Comment on above: Pattern: Unlabored 06-10-2018 08:39-0500 SaO2% (BldA) [Mass fraction] 98 % Ele Osorio [facility]; [facility] Work Phone: Comment on above: Room air 05-23-2017 11:38-0500 BMI (Body Mass Index) 20.01 kg/m2 Katelyn Aburto [facility] Internal Medicine Work Phone: 05-23-2017 11:38-0500 Body weight 56.[address] Work Phone: 05-23-2017 11:38-0500 BP Diastolic 70 mm[Hg] Katelyn Aburto [facility] Work Phone: Comment on above: Patient Position: Sitting; Cuff Location : Left Arm; Cuff Size: Standard 05-23-2017 11:38-0500 BP Systolic 115 mm[Hg] [facility] Work Phone: Comment on above: Patient Position: Sitting; Cuff Location : Left Arm; Cuff Size: Standard 05-23-2017 11:38-0500 BSA (Body Surface Area) 1.63 [address] [facility] Work Phone: 05-23-2017 11:38-0500 Height 167.64 cm [facility] Work Phone: 05-23-2017 11:38-0500 Pulse (Heart Rate) 82 /min Katelyn Aburto [facility] Work Phone: Comment on above: Pattern: Regular 05-23-2017 11:38-0500 Pulse Oximetry 98 % Sowmya Baldwin [facility] Work Phone: Comment on above: Room air 05-23-2017 11:38-0500 Respiratory Rate 16 /min Katelyn Aburto [facility] Work Phone: Comment on above: Pattern: Unlabored 05-23-2017 11:38-0500 SaO2% (BldA) [Mass fraction] 98 % Katelyn Aburto [facility]; [facility] Work Phone: Comment on above: Room air 08-25-2016 10:24-0400 BMI (Body Mass Index) 20.01 kg/m2 Lilian Slarb PRICING INTERN [facility] Work Phone: 08-25-2016 10:24-0400 Body Temperature 98.3 [degF] Lilian Slarb PRICING INTERN [facility] Work Phone: 08-25-2016 10:24-0400 Body weight 56.25 kg Lilian Slarb PRICING INTERN [facility] Work Phone: 08-25-2016 10:24-0400 BP Diastolic 78 mm[Hg] Lilian Slarb PRICING INTERN [facility] Work Phone: Comment on above: Patient Position: Sitting; Cuff Location : Left Arm; Cuff Size: Standard 08-25-2016 10:24-0400 BP Systolic 118 mm[Hg] Lilian Slarb PRICING INTERN [facility] Work Phone: Comment on above: Patient Position: Sitting; Cuff Location : Left Arm; Cuff Size: Standard 08-25-2016 10:24-0400 BSA (Body Surface Area) 1.63 m2 Lilian Slarb PRICING INTERN [facility] Work Phone: 08-25-2016 10:24-0400 Height 167.64 cm Lilian Slarb PRICING INTERN [facility] Work Phone: 08-25-2016 10:24-0400 [...] Type Care Provider Facility Start: 04-20-2025 ambulatory [facility] :[facility] Start: 04-20-2025 End: 04-20-2025 ambulatory [facility] Facility:[facility] Start: 04-14-2025 End: 04-14-2025 ambulatory Kiya [place] Facility:[facility] Start: 04-06-2025 ambulatory Rose Chowdhury [facility]3]ty:[facility] Start: 04-06-2025 End: 04-06-2025 ambulatory [facility] Facility:[facility] Start: 03-23-2025 End: 03-23-2025 Patient encounter procedure Suzanne Salazar HEAD [employer]-C -[facility] Work Phone: Start: 03-23-2025 End: 03-23-2025 ambulatory Kiya Greer HEAD [employer] Work Phone: -[facility] Start: 03-09-2025 End: 03-09-2025 ambulatory Kiay Greer HEAD [employer] Work Phone: -[facility] Start: 03-09-2025 End: 03-09-[address] Rose Mahmood DO -[facility] Work Phone: Start: 02-25-2025 End: 02-25-[address] Dorothy Lee MD -[facility] Work Phone: Start: 02-25-2025 End: 02-25-2025 ambulatory Kiya Greer HEAD [employer] Work Phone: [facility] Start: 02-11-2025 End: 02-11-[address] Rose Mahmood DO -[facility] Work Phone: Start: 02-11-2025 End: 02-11-2025 ambulatory Kiya Greer HEAD [employer] Work Phone: [facility] Start: 01-26-2025 End: 01-26-[address] Dorothy Lee MD -[facility] Work Phone: Start: 01-26-2025 End: 01-26-2025 ambulatory Kiya Greer HEAD [employer] Work Phone: [facility] Start: 01-26-2025 End: 01-26-2025 ambulatory Kiya Greer Facility:[facility] Start: 12-31-2024 End: 12-31-[address] Rose Mahmood DO -[facility] Work Phone: Start: 12-31-2024 End: 12-31-2024 ambulatory Kiya Greer HEAD [employer] Work Phone: [facility] Start: 12-15-2024 End: 12-15-2024 ambulatory NO PRIMARY CARE [facility] Start: 12-01-2024 End: 12-01-2024 ambulatory NO PRIMARY CARE [facility] Start: 12-01-2024 End: 12-01-[address] Dorothy Lee MD -[facility] Work Phone: Start: 12-01-2024 End: 12-01-2024 ambulatory Kiya Greer HEAD [employer]-C Work Phone: [facility] Work Phone: Start: 11-05-2024 End: 11-05-[address] Rose Mahmood DO -[facility] Work Phone: Start: 11-05-2024 End: 11-05-2024 ambulatory Kiya Percy HEAD [employer] Work Phone: [facility] Work Phone: Start: 11-05-2024 End: 11-05-2024 ambulatory Kiya Greer Facility:[facility] Start: 09-29-2024 End: 09-29-2024 ambulatory Kiya Greer HEAD [employer] Work Phone: [facility] Work Phone: Start: 09-29-2024 End: 09-29-[address] Dorothy Lee MD -Laboratory, Specimen Work Phone: Start: 09-29-2024 End: 09-29-[address] Dorothy Lee MD -[facility] Work Phone: Start: 09-29-2024 End: 09-29-2024 ambulatory Kiya Greer Facility: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 Work Phone: [facility] Start: 02-06-2022 Non-patient / Non-visit [employer] Sowmya Baldwin HEAD [employer] Work Phone: [facility] Start: 02-05-2022 Non-patient / Non-visit [employer] Sowmya Rodrigueza HEAD [employer] Work Phone: [facility] Start: 02-04-2022 Non-patient / Non-visit [employer] Sowmya Rodrigueza HEAD [employer] Work Phone: [facility] Start: 02-04-2022 End: 02-06-2022 Evaluation and management of inpatient HEAD [employer]-C Sowmya Rodrigueza HEAD [employer] [facility] Start: 02-03-2022 End: 02-03-2022 Patient encounter procedure HEAD [employer]-C Sowmya Rodrigueza HEAD [employer] Work Phone: [facility] Start: 01-27-2022 End: 01-27-2022 Patient encounter procedure HEAD [employer]-C Sowmya Rodrigueza HEAD [employer] Work Phone: [facility] Start: 01-17-2022 End: 01-17-2022 Patient encounter procedure HEAD [employer]-C Sowmya Rodrigueza HEAD [employer] GOL[employer] COACH Work Phone: [facility] Start: 01-17-2022 End: 01-17-2022 Patient encounter procedure HEAD [employer]-C Sowmya Rodrigueza HEAD [employer] Work Phone: [facility] Start: 01-11-2022 End: 01-11-2022 Patient encounter procedure HEAD [employer]-C Sowmya Rodrigueza HEAD [employer] Work Phone: [facility] Start: 01-04-2022 Non-patient / Non-visit HEAD [employer]-C Sowmya Rodrigueza HEAD [employer] Work Phone: [facility] Start: 01-04-2022 End: 01-04-2022 Patient encounter procedure HEAD [employer]-C Sowmya Rodrigueza HEAD [employer]ACH Work Phone: [facility]-Cardiovascular Services Start: 01-03-2022 End: 01-03-2022 Patient encounter procedure HEAD [employer]-C Sowmya Ciesa HEAD [employer] Work Phone: [facility]-Laboratory, Specimen Start: 01-02-2022 End: 01-02-2022 Patient encounter procedure HEAD [employer]-C Sowmya Rodrigueza HEAD [employer] Work Phone: [facility] Start: 12-27-2021 End: 12-27-2021 Patient encounter procedure HEAD [employer]-C Sowmya Rodrigueza HEAD [employer] G[employer] COACH Work Phone: [facility] Start: 12-20-2021 Non-patient / Non-visit HEAD [employer]-C Sowmya Rodrigueza HEAD [employer]ACH Work Phone: [facility] Start: 12-20-2021 End: 12-20-2021 Patient encounter procedure HEAD [employer]-C Sowmya Rodrigueza HEAD [employer] Work Phone: [facility] Start: 12-14-2021 End: 12-14-2021 Patient encounter procedure HEAD [employer]-C Sowmya Rodriguezfranky HEAD [employer]ACH Work Phone: [facility] Start: 12-14-2021 End: 12-14-2021 Emergency department patient visit HEAD [employer]-C Sowmya Rodrigueza HEAD [employer] Work Phone: [facility]-Emergency Department Start: 12-08-2021 End: 12-08-2021 Patient encounter procedure HEAD [employer]-C Sowmya Rodrigueza HEAD [employer] Work Phone: [facility] Start: 11-25-2021 End: 11-25-2021 Patient encounter procedure HEAD [employer]-C Sowmya Rodrigueza HEAD [employer] Work Phone: [facility] Start: 11-08-2021 End: 11-08-2021 Patient encounter procedure HEAD [employer]-C Sowmya Rodrigueza HEAD [employer]ACH Work Phone: [facility] Start: 10-26-2021 End: 10-26-2021 Patient encounter procedure HEAD [employer]-C Sowmya Rodrigueza HEAD [employer]ACH Work Phone: [facility] Start: 09-23-2021 End: 09-23-2021 Patient encounter procedure [employer]-C Sowmya Baldwin HEAD [employer]ACH Work Phone: [facility] Start: 08-23-2021 End: 08-23-2021 Patient encounter procedure HEAD [employer]-C Sowmya Baldwin HEAD [employer] GOL[employer] COACH Work Phone: [facility] Start: 07-26-2021 End: 07-26-2021 Patient encounter procedure HEAD [employer]-C Sowmya Baldwin HEAD [employer] GOL[employer] COACH Work Phone: [facility] Start: 06-30-2021 End: 06-30-2021 Patient encounter procedure HEAD [employer]-C Sowmya Baldwin HEAD [employer] GOL[employer] COACH Work Phone: [facility]Laboratory, [facility] Start: 06-30-2021 End: 06-30-2021 Patient encounter procedure HEAD [employer]-C Sowmya Baldwin HEAD [employer] GOL[employer] COACH Work Phone: 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 Work Phone: [facility] Start: 06-16-2019 End: 06-16-2019 Periodic preventive med est patient 18-39 yrs Sowmya Baldwin [facility] Start: 06-10-2018 End: 06-10-2018 Patient encounter procedure Kiya Greer 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 FOOTBALL COACH Work Phone: [facility] Start: 06-10-2018 End: 06-10-2018 Periodic preventive med est patient 18-39 yrs Sowmya Denny [facility] Start: 05-23-2017 End: 05-23-2017 Office outpatient visit 15 minutes Sowmya Baldwin [facility] Start: 09-11-2016 End: 09-11-2016 Annotation/Addendum Sowmya Baldwin [facility] 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 Start: 08-25-2016 End: 08-25-2016 Office outpatient new 30 minutes Sowmya Baldwin [facility] Internal [facility] Start: 08-25-2016 End: 08-25-2016 Patient encounter procedure Kiya Greer ASSISTANT FOOTBALL COACH Work Phone: [facility] End: 09-19-2022 Patient encounter procedure Lilian Pineda PRICING INTERN [facility]; [facility] Work Phone: Procedures Date Procedure Procedure Detail Performing Clinician Start: 01-26-2025 Serologic test for syphilis Kiya Greer HEAD [employer] Work Phone: Start: 11-05-2024 Hepatitis C antibody measurement Kiya Greer HEAD [employer]-C Work Phone: Comment on above: Reactive: Presumptive evidence of antibo dies to HCV. Follow CDC recommendations for supplemental testing.Non-Reactive: Antibodies to HCV were not detected; does not exclude the possibility of exposure to HCVReactive Results are presumptive evidence of antibodies to HCV. Follow CDC recommendations for supplemental testing.Order confirmation testing: HCV Quant by PCR testing - HCVPCR lc#[id number] Non Reactive: < 0.8 Equivocal: >/= 0.8 to < 1.0 Reactive: >/= 1.0The CDC requires that a reactive/equivocal HCV antibody result be sent out for confirmation. HCV Quant by PCR testing. Start: 11-05-2024 Rubella IgG measurement Kiya Greer HEAD [employer]-C Work Phone: Comment on above: Antibody Result: InterpretationNon-React marie: Non-ImmuneReactive: ImmuneThe following results were obtained with the [email or web address] Rubella IgG assay. Results from assays of other manufacturers cannot be used interchangeably. Start: 11-05-2024 Serologic test for syphilis Kiya Greer HEAD [employer]-C Work Phone: Start: 09-29-2024 Urine culture Kiya Greer HEAD [employer]-C Work Phone: Start: 03-20-2022 End: 03-20-2022 Account Coordinator Office Visit Report Procedure Note: See Note; NOTES: [facility] [address] [place] [address] OFFICE VISIT Date of Service: 03/20/22 MR#: [id number] Acct: [id number] Name: MARTIN CASTELLANOS Rep #: [id number] : 1995 Provider: Dr. 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 pets and animals: Yes Smoking [...] 41 live - full term Female epidural [facility] Pelon audra Mobley Delivery Date: 02/05/22 Last [...] symptoms Infant Feeding: Breast Menses resumed: No [place] since delivery: No Emotional Support: Yes ROS [...] Signature: Date (if applicable) CC: Kiya Greer [facility] Work Phone: Start: 02-10-2022 End: 02-10-2022 /[facility] Procedure Note: See Note; NOTES: [facility] [address] [place] [address] OFFICE VISIT Date of Service: 02/09/22 MR#: [id number] Acct: [id number] Name: MARTIN CASTELLANOS LUZ Rep #: [id number] : 1995 Provider: MARIANELA vega Age/Sex: 26/F Location: [facility] Status: Signed Intake Vital Signs 02/04/22 07:12 Height 5 ft 4 in Intake Visit Reasons: Feeding Assessment/Nipple Soreness Chief Complaint: assessment, nipple pain Accompanied by: Allergies Penicillins Allergy (Intermediate, Verified 02/04/22 08:35) Hives : Yes Current gender identity: female [facility] Medical History COVID-19 vaccine series completed Surgical History H/O wisdom tooth extraction Family History Mother Hypertension Grandmother Breast cancer Grandmother Hypertension Social History household members: spouse housing: house 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 [place] [address] OFFICE VISIT Date of Service: 02/03/22 MR#: [id number] Acct: [id number] Name: MARTIN CASTELLANOS Rep #: [id number] : 1995 Provider: Dr. 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 [place] [address] OFFICE VISIT Date of Service: 01/27/22 MR#: [id number] Acct: [id number] Name: MARTIN CASTELLANOS Rep #: [id number] : 1995 Provider: Dr. 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: Yes Smoking [...] Signature: Date (if applicable) CC: Kiya Greer ASSISTANT FOOTBALL COACH Work Phone: Start: 01-17-2022 Ultrasound scan for growth HEAD [employer] GOLF COACH-C Sowmya Rodriguezfranky MARIANELA Work Phone: Start: 01-17-2022 End: 01-18-2022 OB Limited With Biometrics Procedure Note: See Note; NOTES: [facility] Imaging Services [address] [place] [address] OB Limited With Biometrics MR#: [id number] Acct: [id number] Name: MARTIN CASTELLANOS Rep #: [id number] : 1995 F 26 From: Levi Portillo MD PCP: LUCINDA Wesley Status: REG CLI Study: OB Limited With Biometrics Date of Exam: 01/17 Exam# [id number] Ordering Dr: Dorothy Lee STUDY: SECOND AND [...] CC: LUCINDA Greer; Dr. Dorothy Lee MD Early Interventionist: Signed Kiya Greer [facility] Work Phone: Start: 01-17-2022 End: 01-17-2022 Account Coordinator Office Visit Report Comments: See Note; NOTES: [facility] [address] [place] [address] OFFICE VISIT Date of Service: 01/17/22 MR#: [id number] Acct: [id number] Name: MARTIN CASTELLANOS Rep #: [id number] : 1995 Provider: Dr. 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 [place] [address] OFFICE VISIT Date of Service: 01/11/22 MR#: [id number] Acct: [id number] Name: MARTIN CASTELLANOS Rep #: [id number] : 1995 Provider: Dr. 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 [address] Echo Complete 01/04/22 1102 MR#: [id number] Acct: [id number] Name: MARTIN CASTELLANOS Rep #: [id number] : 1995 26 From: Kirk Lemon MD Attending Dr: Dr. Kirk Lemon MD Status: FAVIO RODRIGUEZ Ordering Dr: Kirk Lemon MD Date: 01/04/22 Location: [facility] Sex: F C Admitted: Reason For [...] 01/04/22 1619 Date Kirk Lemon MD CC: [employer] Kiya Greer; Dr. Kirk Lemon MD Date Dictated: 01/04/22 1102 Date Transcribed: 01/04/221618 Early Interventionist: Signed Kiya Greer CNP Work Phone: Start: 01-02-2022 End: 01-02-2022 Account Coordinator Office Visit Report Comments: See Note; NOTES: [facility] [address] [place] [address] OFFICE VISIT Date of Service: 01/02/22 MR#: [id number] Acct: [id number] Name: MARTIN CASTELLANOS Rep #: [id number] : 1995 Provider: Dr. 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: Yes Smoking Status: Never smoker second hand exposure: Yes alcohol intake: current alcohol intake frequency: holidays/special occasions only details: not while substance use type: does not use seatbelt use: always do you feel safe at home: Yes additional social history: - Izt Pregancy History 1 Elective abortions Hx Para [...] Dorothy Lee MD> Date [facility] Signature: Date (if applicable) CC: Kiya Percy ASSISTANT FOOTBALL COACH Work Phone: Start: 12-27-2021 End: 12-27-2021 Cardiology Visit Report Comments: See Note; NOTES: [facility] [address] [place] [address] OFFICE VISIT Date of Service: 12/27/21 MR#: [id number] Acct: [id number] Name: MARTIN CASTELLANOS Rep #: [id number] : 1995 Provider: Dr. Kirk Lemon MD Age/Sex: 26/F Location: 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: Yes Smoking Status: Never smoker second hand exposure: Yes alcohol intake: current alcohol intake frequency: holidays/special occasions only details: not while substance use type: does not use seatbelt use: always do you feel safe at home: Yes additional social history: - Izt [place] Const Const: Negative for fatigue, weakness, [...] MD Cosigner Signature: Date (if applicable) CC: HEAD BOYS GOLF COACHJuanita Greer; MD Kiya Jaimes [facility] Work Phone: Start: 12-20-2021 End: 12-20-2021 Account Coordinator Office Visit Report Comments: See Note; NOTES: [facility] 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: Yes Smoking [...] system Z82.79 tachycardia CPT Codes Non-Stress Test (26801) Assessment and Plan Assessment and Plan (1) [...] Signature: Date (if applicable) CC: Kiya Greer ASSISTANT FOOTBALL COACH Work Phone: Start: 12-14-2021 End: 12-17-2021 12 Lead EKG Comments: See Note; NOTES: [facility] Cardi[facility] Services [address] [place] [address] 12 Lead EKG 12/14/21 1106 MR#: [id number] Acct: [id number] Name: MARTIN CASTELLANOS Rep #: [id number] : 1995 From: Kristopher Castillo MD Attending [...] normal ECG Confirmed by FIOR URBINA, KRISTOPHER ([id number]), story editor ANGELA HSU ([id number]) on 12/17/2021 9:42:28 AM Referred By: John Confirmed By:KRISTOPHER CASTILLO MD 12/17/21 0942 Date Kristopher Castillo MD CC: KARINAC Sowmya Baldwin; Dr. Kristopher Lopez MD Signed Kiya Greer CNP Work Phone: Start: 12-14-2021 End: 12-14-2021 Emergency Department Summary Comments: See Note; NOTES: [facility] Medical Records Department [address] [place] [address] Emergency Department Summary 12/14/21 MR#: [id number] Acct: [id number] Name: MARTIN CASTELLANOS Rep #: [id number] : 1995 From: Kristopher Loepz MD PCP: LUCINDA Suárez Status:REG ER Location: [...] and otherwise she has no other symptoms. 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 I talked to QUARTER SEAMER, Dr. Palomo Sloan as well as Dr. [...] 75.7 H Lymph % (Auto) 15.[address] [facility] % (Auto) 6.1 Eos % (Auto) 0.5 [...] Clarity Clear Urine pH 6.5 Ur Specific [place] 1.010 Urine Protein Negative Urine Glucose (UA) [...] PHYSICIAN] - 3-5 Days Sowmya Baldwin NP, [employer]-C [Primary Care Provider] - Disposition Disposition: Home, Self Care What to do if you have Problems For any increased pain, shortness of breath, bleeding, nausea or vomiting, chest pain, or any unexpected problems, contact your Primary Care Provider. Call [facility] ([phone]) or report to the closest Emergency Room. Call 911 if necessary. 12/14/21 1256 <Electronically signed by Kristopher Lopez MD> Cosigner Signature (if applicable): CC: HEAD BOYS GOLF COACHJuanita Baldwin Signed Sowmya Baldwin Work Phone: Start: 12-08-2021 End: 12-08-2021 Account Coordinator Office Visit Report Comments: See Note; NOTES: [facility] [address] [place] [address] OFFICE VISIT Date of Service: 12/08/21 MR#: [id number] Acct: [id number] Name: MARTIN CASTELLANOS Rep #: [id number] : 1995 Provider: Dr. 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 [place] [address] OFFICE VISIT Date of Service: 11/25/21 MR#: [id number] Acct: [id number] Name: MARTIN CASTELLANOS Rep #: [id number] : 1995 Provider: Dr. 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 [address] [place] [address] OFFICE VISIT Date of Service: 11/08/21 MR#: [id number] Acct: [id number] Name: MARTIN CASTELLANOS Rep #: [id number] : 1995 Provider: Dr. 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 [place] [address] OFFICE VISIT Date of Service: 09/23/21 MR#: [id number] Acct: [id number] Name: MARTIN CASTELLANOS Rep #: [id number] : 1995 Provider: Dr. 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 [place] [address] OFFICE VISIT Date of Service: 08/23/21 MR#: [id number] Acct: [id number] Name: MARTIN CASTELLANOS Rep #: [id number] : 1995 Provider: Dr. 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 [place] [address] OFFICE VISIT Date of Service: 07/26/21 MR#: [id number] Acct: [id number] Name: MARTIN CASTELLANOS Rep #: [id number] : 1995 Provider: Dr. 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 [place] [address] OFFICE VISIT Date of Service: 06/30/21 MR#: [id number] Acct: [id number] Name: MARTIN CASTELLANOS Rep #: [id number] : 1995 Provider: Dr. 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 [facility] book offered to patient. Discussed routine and [...] Work Phone: Group B Streptococcu s Culture [employer] Sowmya Baldwin [employer] Work Phone: Viral antigen assay [employer] Prema Baldwin [employer] Work Phone: Plan of Treatment Date Care Activity Detail Author Start: 04-06-2025 Patient encounter procedure Registered Clinical -Laboratory Specimen Work Phone: Start: 04-06-2025 End: 04-06-2025 Patient encounter procedure [facility] Work Phone: Start: 04-06-2025 Group B Streptococcus Culture Group B Streptococcus Culture [facility] Start: 04-06-2025 Streptococcus agalactiae [Presence] in Unspecified specimen by Organism specific culture [facility] Start: 01-26-2025 CBC W Auto Differential panel - Blood [facility] Start: 01-26-2025 Measurement of glucose 2 hours after glucose challenge for glucose tolerance test [facility] Start: 01-26-2025 Serologic test for syphilis [facility] Start: 01-26-2025 [facility] Start: 11-05-2024 CBC W Auto Differential panel - Blood [facility] Start: 11-05-2024 Hepatitis C antibody measurement [facility] Start: 11-05-2024 Rubella IgG measurement [facility] Start: 11-05-2024 Serologic test for syphilis [facility] Start: 11-05-2024 [facility] Start: 09-19-2022 Procedure Education Eprescribed prescriptions (G8553) [facility] Work Phone: Start: 09-19-2022 Provider Instructions for Treatment Follow up as needed [facility] Work Phone: Start: 02-06-2022 Patient discharge [facility] Work Phone: Start: 02-05-2022 Administration of medication [facility] Work Phone: Start: 02-05-2022 Application of ice collar, cap or bag [facility] Work Phone: Start: 02-05-2022 Catheterization of vein [facility] Work Phone: Start: 02-05-2022 Introduction of urinary catheter [facility] Work Phone: Start: 02-05-2022 Measuring intake and output [facility] Work Phone: Start: 02-05-2022 Notification of physician [facility] Work Phone: Start: 02-05-2022 Procedure discontinued [facility] Work Phone: Start: 02-05-2022 Provision of activity privileges [facility] Work Phone: Start: 02-05-2022 Vital signs measurements [facility] Work Phone: Start: 02-05-2022 [facility] Work Phone: Start: 02-04-2022 Admission procedure [facility] Work Phone: Start: 12-14-2021 Ambulatory ECG [facility] Work Phone: Start: 08-09-2020 Procedure Education Eprescribed prescriptions (G8553) [facility] Work Phone: Start: 08-09-2020 Provider Instructions for Treatment [facility] Work Phone: Start: 08-09-2020 Hpv, dna, amp probe HPV Auto Reflex PAP (19267) [facility] Work [...] streptococcus group a Rapid Strep Test, Office (86494) [facility] Work Phone: Start: 05-23-2017 S. pyogenes Ag IA Ql (Unsp spec) Rapid Strep Test, Office (12033) [facility] Work Phone: Start: 08-25-2016 Provider Instructions for Treatment [facility] Work Phone: Start: 08-25-2016 Cytp c/v auto thin lyr prepj scr mnl rescr phys Pap - GC Chlamydia (84339) [facility] Work Phone: Beta-hemolytic Streptococcus culture [facility] CBC W Auto Different ial panel - Blood [facility] Erythrocyte mean corpuscular volume determination [facility] Erythrocyte mean corpuscular volume determination [facility] Hematocrit [Volume Fraction] of Blood [facility] Hematocrit [Volume Fraction] of Blood [facility] Hemoglobin [Mass/vol ume] in Blood [facility] Hemoglobin [Mass/vol ume] in Blood [facility] Hepatitis B virus mcclelland rface Ag [Presence] in Serum [facility] Hepatitis C antibody measurement [facility] Leukocytes [#/volume ] in Blood [facility] Leukocytes [#/volume ] in Blood [facility] Mean corpuscular hemoglobin concentration determination [facility] Mean corpuscular hemoglobin concentration determination [facility] Mean corpuscular hemoglobin determination [facility] Mean corpuscular hemoglobin determination [facility] Neutrophil count [facility] Neutrophil count [facility] Neutrophil percent differential count [facility] Neutrophil percent differential count [facility] Patient Education [facility] Work Phone: Patient referral [facility] Work Phone: Platelets [#/volume] in Blood [facility] Platelets [#/volume] in Blood [facility] Red blood cell count [facility] Red blood cell count [facility] Red cell distributio n width determination [facility] Red cell distributio n width determination [facility] Rubella IgG measurement [facility] Serologic test for syphilis [facility] Work Phone: [facility] Work Phone: [facility] Immunizations Immunization Date Immunization Notes Care Provider Junior storm 02-11-2025 tetanus toxoid, redu miller diphtheria toxoid, and acellular pertussis vaccine, adsorbed Kiya Greer [employer] Work Phone: [facility] 10-26-2021 tetanus toxoid, redu miller diphtheria toxoid, and acellular pertussis vaccine, adsorbed [employer] Sowmya Baldwin NP Work Phone: [facility] 10-26-2021 diphtheria, tetanus toxoids and acellular pertussis vaccine, unspecified formulation [employer] Sowmya Baldwin [employer] Work Phone: [facility] Work Phone: Payers Date Payer Category Payer Private Health Insurance [id number] 2024 Private Health Insurance [id number] 2024 Unknown [id number] 2024 Self-pay [id number] 2022 Unknown [id number] 2020 Unknown [id number] 1995 Unknown [id number] 2.16.84 0.1.206092.3.579.2.716 1995 Unknown [id number] 2.16. 840.1.215572.3.579.2.479 1995 Unknown [id number] 2.16. 840.1.854693.3.579.2.479 Unknown Unknown [id number] 2.16.8 40.1.667693.3.579.2.462 Unknown [id number] 2.16.8 40.1.635563.3.579.2.462 Unknown [id number] 2.16.8 40.1.398479.3.579.2.462 Unknown [id number] 2.16.8 40.1.132284.3.579.2.462 Unknown [id number] 2.16.8 40.1.106560.3.579.2.462 Unknown [id number] 2.16.8 40.1.493482.3.579.2.462 Unknown [id number] 2.16.8 40.1.385828.3.579.2.462 Unknown [id number] 2.16.8 40.1.627739.3.579.2.462 Unknown [id number] 2.16.8 40.1.165155.3.579.2.462 Unknown [id number] 2.16.8 40.1.276212.3.579.2.462 Unknown [id number] 2.16.8 40.1.262328.3.579.2.462 Unknown [id number] 2.16.8 40.1.706388.3.579.2.462 Unknown [id number] 2.16.8 40.1.546840.3.579.2.462 Unknown [id number] 2.16.8 40.1.523752.3.579.2.462 Unknown [id number] 2.16.8 40.1.396368.3.579.2.462 Unknown [id number] 2.16.8 40.1.048816.3.579.2.462 Unknown [id number] 2.16.8 40.1.497716.3.579.2.462 Unknown [id number] 2.16.8 40.1.885975.3.579.2.462 Unknown [id number] 2.16.8 40.1.089254.3.579.2.462 Unknown [id number] 2.16.8 40.1.041243.3.579.2.462 Social History Date Type Detail Facility Caffeine use Caffeine use [facility] Work Phone: Comment on above: 3 cups coffee daily Living Situation: Living Situation: [facility] Work Phone: Living Situation: Living Situation: [facility] Work Phone: Start: 10-26-2021 End: 02-04-2022 Tobacco smoking status NHIS Unknown if ever smoked [facility] Work Phone: Start: 1995 Sex Assigned At Female [facility] Living Situation: Living Situation: [facility] Work Phone: Comment on above: one child Start: 09-19-2024 Tobacco smoking status NHIS Never smoked tobacco (finding) [facility] Start: 10-01-2024 Sex Female (finding) [facility] Sex Female [facility] Goals Date Patient Goal Desired Activity /State Mental Status Date Assessment Result Facility 12-14-2021 Cognitive function Level Of Cons ciousness Awake;Alert;Appropriate;Follow s Commands;Responds to vocal stimuli [facility] Work Phone: Clinical Notes 09-29-2024 to 03-23-2025 Note Date & Type Note Facility 03-23-2025 Progress note [facility] 03-09-2025 Progress note [facility] 02-25-2025 Progress note [facility] 02-11-2025 Progress note [facility] 01-26-2025 Progress note [facility] 12-31-2024 Evaluation note Diagnosis Onset Date [...] Supervision of normal acute April 06 2:13pm [facility] Work Phone: 1(113) 760-802906-23-2025 Evaluation note* Diagnosis Onset Date Resolution Status [...] of normal acute March 09, 2025 9:23am [facility] Work Phone: 1(649) 608-366006-23-2025 Progress [facility] [address] [place] [address], [address] [place] [address] OFFICE VISIT Date of Service: 12/01/24 MR#: [id number] Acct: [id number] Name: MARTIN CASTELLANOS Rep #: [id number] : 1995 Provider: Dr. 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 Is patient in pain?: No [...] 1 current occupational status: employed current occupation: [employer] pets and animals: Yes pets [...] times per week duration: 30-45 minutes/day juan alberto/uatsdin: Cheondoism seatbelt use: always do you feel safe [...] - full term 8#3oz Female epidu ral [facility] Dorothy Mobley Delivery Date: 02/05/22 Last Updated [...] Cosigner Signature: Date (if applicable) CC: ~ [facility] [facility] Evaluation note* Diagnosis Onset Date Resolution [...] normal acut e January 26, 2025 9:03am [facility] Work Phone: 1(861) 503-774105-28-2025 Evaluation note* Diagnosis Onset Date Resolution Status [...] of transposition of great vessels acute J deajn2024 8:34am History of atony of uterus acute [...] Supervision of normal acute February 11 9:38am [facility] Work Phone: 1(127) 941-349605-28-2025 Evaluation note* Diagnosis Onset Date Resolution Status [...] of normal acute February 25, 2025 9:15am [facility] Work Phone: 1(926) 869-722005-28-2025 [facility] [address] [place] [address], [address] [place] [address] OFFICE VISIT Date of Service: 11/05/24 MR#: [id number] Acct: [id number] Name: MARTIN CASTELLANOS Rep #: [id number] : 1995 Provider: Dr. 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 Is patient in pain?: No [...] 1 current occupational status: employed current occupation: [employer] pets and animals: Yes pets [...] times per week duration: 30-45 minutes/day juan alberto/uatsdin: Cheondoism seatbelt use: always do you feel safe [...] - full term 8#3oz Female epidu ral [facility] Dorothy Mobley Delivery Date: 02/05/22 Last Updated [...] Kohli Signature: Date (if applicable) CC: ~ [facility]04-21-2025 Evaluation note* Diagnosis Onset Date Resolution Status Admit Date Anxiety acute September 29 10:06am Depression acute September 29 10:06am History of atony of uterus acute September 29, 2024 10:06am acute September 29 10:06am Supervision of normal acut e September 29, 2024 10:06am [facility] Work Phone: 1(330) 150-976804-21-2025 Evaluation note* Diagnosis Onset Date Resolution Status [...] normal acut e November 05, 2024 8:39am [facility] Work Phone: 1(452) 525-276804-21-2025 Evaluation note* Diagnosis Onset Date Resolution Status [...] normal acut e December 01, 2024 10:07am [facility] Work Phone: 1(425) 539-923604-21-2025 Evaluation note* Diagnosis Onset Date Resolution Status [...] normal acut e December 31, 2024 8:34am [facility] Work Phone: 1(982) 209-482304-21-2025 Evaluation note* Diagnosis Onset Date Resolution Status [...] normal acut e January 26, 2025 9:03am [facility] Work Phone: Evaluation note* Diagnosis Onset [...] Seasonal allergies acute Supervision of normal acute [facility] Work Phone: Evaluation note* Diagnosis [...] Seasonal allergies acute Supervision of normal acute [facility] Work Phone: Evaluation note* Diagnosis [...] of congenital anomaly of cardiovascular system resolved [facility] Work Phone: Evaluation note* Diagnosis [...] Seasonal allergies resolved Supervision of normal resolved [facility] Work Phone: Instructions* Name Dates Details Patient Instructions Indication:Well woman exam (Renamed from Encounter for well woman exam) Start:09-Aug-2020 Instruction Type:Provider Instructions for Treatment How to Access Health Informa tion Online using Patient Portal and [employer] Apps Indication:Well woman exam (Renamed from Encounter [...] Informa tion Online using Patient Portal and [employer] Apps Indication:Well woman exam (Renamed from Encounter [...] Informa tion Online using Patient Portal and [employer] Apps Indication:Well woman exam (Renamed from Encounter [...] Informa tion Online using Patient Portal and [employer] Apps Indication:Well woman exam (Renamed from Encounter [...] Informa tion Online using Patient Portal and [employer] Apps Indication:Well woman exam (Renamed from Encounter [...] Informa tion Online using Patient Portal and [employer] Apps Indication:Well woman exam (Renamed from Encounter [...] Informa tion Online using Patient Portal and Upshot Indication:Nonsmoker Start:19-Sep-2022 Instruction Type:Patient Education Patient Instructions Indication:Well woman exam (Renamed from Encounter for well woman exam) Start:09-Aug-2020 Instruction Type:Provider Instructions for Treatment How to Access Health Informa tion Online using Patient Portal and [employer] Apps Indication:Well woman exam (Renamed from Encounter [...] Informa tion Online using Patient Portal and Upshot Indication:Nonsmoker Start:19-Sep-2022 Instruction Type:Patient Education Patient Instructions [...] Work Phone: progress note Author Rose Man [facility] Note Date/Time November 05, 2024 9:04a [facility] [address], [address] [place] [address] OFFICE VISIT Date of Service: 11/05/24 MR#: [id number] Acct: [id number] Name: MARTIN CASTELLANOS Rep #: [id number] : 1995 Provider: Dr. 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 Is patient in pain?: No [...] 1 current occupational status: employed current occupation: [employer] pets and animals: Yes pets [...] times per week duration: 30-45 minutes/day juan alberto/uatsdin: Cheondoism seatbelt use: always do you feel safe [...] Cosigner Signature: Date (if applicable) CC: ~ [facility] Work Phone: Progress note Author Dorothy Lee [facility] Note Date/Time December 01, 2024 10:5 5am [facility] [address] [place] [address], [address] [place] [address] OFFICE VISIT Date of Service: 12/01/24 MR#: [id number] Acct: [id number] Name: MARTIN CASTELLANOS Rep #: [id number] : 1995 Provider: Dr. 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 Is patient in pain?: No [...] 1 current occupational status: employed current occupation: [employer] pets and animals: Yes pets [...] times per week duration: 30-45 minutes/day juan alberto/uatsdin: Cheondoism seatbelt use: always do you feel safe [...] - full term 8#3oz Female epidu ral [facility] Dorothy Mobley Delivery Date: 02/05/22 Last Updated by: Rtuhie Costello see problem list for complications, and [...] Cosigner Signature: Date (if applicable) CC: ~ [facility] Work Phone: Progress note Author Dorothy Lee [facility] Note Date/Time January 26, 2025 10 :02am [facility] [address], [address] [place] [address] OFFICE VISIT Date of Service: 01/26/25 MR#: [id number] Acct: [id number] Name: MARTIN CASTELLANOS Rep #: [id number] : 1995 Provider: Dr. 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 Vertical Required: No Is patient in pain?: No [...] 1 current occupational status: employed current occupation: [employer] pets and animals: Yes pets [...] times per week duration: 30-45 minutes/day juan alberto/uatsdin: Cheondoism seatbelt use: always do you feel safe [...] - full term 8#3oz Female epidu ral [facility] Dorothy Mobley Delivery Date: 02/05/22 Last Updated [...] Cosigner Signature: Date (if applicable) CC: ~ [facility] Work Phone: Progress note Author Rose Man [facility] Note Date/Time February 11, 2025 10:14am [facility] [address] [facility] [address], [address] [place] [address] OFFICE VISIT Date of Service: 02/11/25 MR#: [id number] Acct: [id number] Name: MARTIN CASTELLANOS Rep #: [id number] : 1995 Provider: Dr. 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 Required: No Is patient in pain?: No [...] 1 current occupational status: employed current occupation: [employer] pets and animals: Yes pets [...] times per week duration: 30-45 minutes/day juan alberto/uatsdin: Cheondoism seatbelt use: always do you feel safe [...] - full term 8#3oz Female epidu ral [facility] Dorothy Mobley Delivery Date: 02/05/22 Last Updated [...] Performing Provider: Rose Mahmood DO Performing Location: [facility] Administered by: Angelina Blanco on 02/11/25 09:56 Dose Route Admin Location Dispensed Lot Number Expiration Date NDC Digital Analyst 0.5 mL IM Right Deltoid 0.5 mL [id number] 02/08/27 67361-862-21 JOSE FI-PASTEUR VIS Given Date VIS Provided [...] Bhupinderignjoe Signature: Date (if applicable) CC: ~ [facility] Work Phone: Progress note Author Dorothy Lee [facility] Note Date/Time February 25, 2025 10:19am [facility] [address], [address] [place] [address] OFFICE VISIT Date of Service: 02/25/25 MR#: [id number] Acct: [id number] Name: MARTIN CASTELLANOS Rep #: [id number] : 1995 Provider: Dr. 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 Required: No Is patient in pain?: No [...] 1 current occupational status: employed current occupation: [employer] pets and animals: Yes pets [...] times per week duration: 30-45 minutes/day juan alberto/uatsdin: Cheondoism seatbelt use: always do you feel safe [...] - full term 8#3oz Female epidu ral [facility] Dorothy Mobley Delivery Date: 02/05/22 Last Updated [...] Cosigner Signature: Date (if applicable) CC: ~ [facility] Work Phone: Progress note Author Rose Man [facility] Note Date/Time March 09, 2025 10:07am [facility] [address], [address] [place] [address] OFFICE VISIT Date of Service: 03/09/25 MR#: [id number] Acct: [id number] Name: MARTIN CASTELLANOS Rep #: [id number] : 1995 Provider: Dr. 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 Required: No Is patient in pain?: No [...] 1 current occupational status: employed current occupation: [employer] pets and animals: Yes pets [...] times per week duration: 30-45 minutes/day juan alberto/uatsdin: Cheondoism seatbelt use: always do you feel safe [...] - full term 8#3oz Female epidu ral [facility] Dorothy Jesus [employer] Delivery Date: 02/05/22 Last [...] Cosigner Signature: Date (if applicable) CC: ~ [facility] Work Phone: Progress note Author Suzanne Salazar [facility] Note Date/Time March 23, 2025 1 :54pm [facility] [address] [place] [address], [address] [place] [address] OFFICE VISIT Date of Service: 03/23/25 MR#: [id number] Acct: [id number] Name: MARTIN CASTELLANOS Rep #: [id number] : 1995 Provider: LUCINDA Salazar Age/Sex: 29/F Location: [facility] Status: Signed Intake Vital Signs 02/11/25 09:41 03/09/25 09:27 03/23/25 13:40 Height 5 ft 4 in 5 ft 4 in 5 ft 4 in Weight: 207 lb 1 oz BMI 35.5 BP 112/81 H 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 03/23/25 2090 <Electronically signed by Suzanne saldana [employer]> Date _ Suzanne Salazar [employer] Cosigner Signature: Date (if applicable) CC: ~ [facility] Work Phone: Reason for referral (narrative)No reason for referral information availableWToledo [facility] Work Phone: Family History No Family [...] Informa tion Online using Patient Portal and [employer] Apps Indication:Well woman exam (Renamed from [...] December 14, 2021 1 1:16am Power of Career Law Clerk No December 14, 2021 11:16am Advance Directive Response Recorded Date/ Time Living Will No February 04 7:47am Power of Career Law Clerk No February 04 022 7:47am Chief Complaint [...] February 11, 2025 9:38am Super[facility] 2024 9:38am Anxiety February 25, 2025 [...] February 11, 2025 9:38am Supervision of normal [facility] 2024 9:38am Anxiety February 25, 2025 9:15am Depression February 25, 2025 9:15am Family history of transposition of great vessels February 25, 2025 9:15am History of atony of uterus Se ptember 2024 9:15am February 25, 2025 9:15am [facility] 9:15[facility] Anxiety March 09, 2025 9:23am Depression March 09, 2025 9:23am Family history of transposition of great vessels March 09, 2025 9:23am History of atony of uterus Se ptember 2024 9:23am March 09, 2025 9:23am [facility] 20[facility] 9:23am Chief Complaint Admit [...] February 11, 2025 9:38am Supervision of normal [facility] r 2024 9:38am Anxiety February 25, 2025 [...] section and content) DATE CREATED AUTHOR 07/15/2021 [facility] DATE CREATED AUTHOR AUTHOR'S ORGANIZ ATION 09/19/2022 [facility] DATE CREATED AUTHOR AUTHOR'S ORGANIZ ATION 07/23/2024 [facility] DATE CREATED AUTHOR AUTHOR'S ORGANIZ ATION 12/18/2024 [facility] DATE CREATED AUTHOR AUTHOR'S ORGANIZ ATION 04/21/2025 [facility] Goals (unrecognized section and content) Type Care [...] Member Role Status Dates Kiya Percy , [employer] Primary Care Provider Active Start: November 05, 2024 End: November 05, 2024 Dr. Rose Mahmood DO Attending Provider Activ e Start: November 05, 2024 End: November 05, 2024 Dr. Rose Mahmood DO Referring Provider Activ e Start: November 05, 2024 End: November 05, 2024 Team Status: Inactive Member Role Status Dates Kiya Greer , [employer] Primary Care Provider Active Start: December 01, 2024 End: December 01, 2024 Kiya Greer , [employer] Referring Provider Active Start: December 01, 2024 End: December 01, 2024 Dr. Dorothy Lee MD Attending Provider Active Start: December 01, 2024 End: December 01, 2024 Team Status: Active Member Role/Relationship Status Dates Kiya Greer , [employer] Primary Care Provider Active Team Status: Inactive Member Role/Relationship Status Dates Kiya Greer , [employer] Primary Care Provider Active Start: September 29, 2024 End: September 29, 2024 Kiya Greer [employer] Referring Provider Active Start: September 29, 2024 End: September 29, 2024 Dr. Dorothy Lee MD Attending Provider Active Start: September 29, 2024 End: September 29, 2024 Team Status: Inactive Member Role/Relationship Status Dates Kiya Greer [employer] Primary Care Provider Active Start: September 29, 2024 End: September 29, 2024 Dr. Dorothy Lee MD Attending Provider Active Start: September 29, 2024 End: September 29, 2024 Dr. Dorothy Lee MD Referring Provider Active Start: September 29, 2024 End: September 29, 2024 Team Status: Inactive Member Role/Relationship Status Dates Kiya Greer , [employer] Primary Care Provider Active Start: November 05, 2024 End: November 05, 2024 Kiya Greer [employer] Referring Provider Active Start: November 05, 2024 End: November 05, 2024 Dr. Rose Mahmood DO Attending Provider Activ e Start: November 05, 2024 End: November 05, 2024 Team Status: Inactive Member Role/Relationship Status Dates Kiya Greer , [employer] Primary Care Provider Active Start: November 05, 2024 End: November 05, 2024 Dr. Rose Mahmood DO Attending Provider Activ e Start: November 05, 2024 End: November 05, 2024 Dr. Rose Mahmood DO Referring Provider Activ e Start: November 05, 2024 End: November 05, 2024 Team Status: Inactive Member Role/Relationship Status Dates Kiya Greer [employer] Primary Care Provider Active Start: December 01, 2024 End: December 01, 2024 Kiya Greer [employer] Referring Provider Active Start: December 01, 2024 End: December 01, 2024 Dr. Dorothy Lee MD Attending Provider Active Start: December 01, 2024 End: December 01, 2024 Team Status: Inactive Member Role/Relationship Status Dates Kiya Greer [employer] Primary Care Provider Active Start: December 31, 2024 End: December 31, 2024 Kiya Greer [employer] Referring Provider Active Start: December 31, 2024 End: December 31, 2024 Dr. Rose Mahmood DO Attending Provider Activ e Start: December 31, 2024 End: December 31, 2024 Team Status: Inactive Member Role/Relationship Status Dates Kiya Greer [employer] Primary Care Provider Active Start: January 26, 2025 End: January 26, 2025 Kiya Greer [employer] Referring Provider Active Start: January 26, 2025 End: January 26, 2025 Dr. Dorothy Lee MD Attending Provider Active Start: January 26, 2025 End: January 26, 2025 Team Status: Active Member Role/Relationship Status Dates Kiya Greer [employer] Primary Care Provider Active Start: January 26, 2025 Ranjana Neil CNM Attending Provider Active S tart: January 26, 2025 Ranjana Neil CNM Referring Provider Active S tart: January 26, 2025 Team Status: Inactive Member Role/Relationship Status Dates Kiya Greer [employer] Primary Care Provider Active Start: November 05, 2024 End: November 05, 2024 Kiya Greer [employer] Referring Provider Active Start: November 05, 2024 End: November 05, 2024 Dr. Rose Mahmood DO Attending Provider Activ e Start: November 05, 2024 End: November 05, 2024 Team Status: Inactive Member Role/Relationship Status Dates Kiya Greer , [employer] Primary Care Provider Active Start: November 05, 2024 End: November 05, 2024 Dr. Rose Mahmood , Attending Provider Activ e Start: November 05, 2024 End: November 05, 2024 Dr. Rose Mahmood , Referring Provider Activ e Start: November 05, 2024 End: November 05, 2024 Team Status: Inactive Member Role/Relationship Status Dates Kiya Greer , [employer] Primary Care Provider Active Start: December 01, 2024 End: December 01, 2024 Kiya Greer [employer] Referring Provider Active Start: December 01, 2024 End: December 01, 2024 Dr. Dorothy Lee MD Attending Provider Active Start: December 01, 2024 End: December 01, 2024 Team Status: Inactive Member Role/Relationship Status Dates Kiya Greer , [employer] Primary Care Provider Active Start: December 31, 2024 End: December 31, 2024 Kiya Greer , [employer] Referring Provider Active Start: December 31, 2024 End: December 31, 2024 Dr. Rose Mahmood , Attending Provider Activ e Start: December 31, 2024 End: December 31, 2024 Team Status: Inactive Member Role/Relationship Status Dates Kiya Greer , [employer] Primary Care Provider Active Start: January 26, 2025 End: January 26, 2025 Kiya Greer [employer] Referring Provider Active Start: January 26, 2025 End: January 26, 2025 Dr. Dorothy Lee MD Attending Provider Active Start: January 26, 2025 End: January 26, 2025 Team Status: Inactive Member Role/Relationship Status Dates Kiya Greer [employer] Primary Care Provider Active Start: January 26, 2025 End: January 26, 2025 Ranjana Neil CNM Attending Provider Active S tart: January 26, 2025 End: January 26, 2025 Ranjana Neil CNM Referring Provider Active S tart: January 26, 2025 End: January 26, 2025 Team Status: Inactive Member Role/Relationship Status Dates Kiya Greer , [employer] Primary Care Provider Active Start: February 11, 2025 End: February 11, 2025 Kiya Greer [employer] Referring Provider Active Start: February 11, 2025 End: February 11, 2025 Dr. Rose Mahmood , Attending Provider Activ e Start: February 11, 2025 End: February 11, 2025 Team Status: Active Member Role/Relationship Status Dates Kiya Greer [employer] Primary care physician Active Team Status: Inactive Member Role/Relationship Status Dates Kiya Greer [employer] Primary care physician Active Start: November 05, 2024 End: November 05, 2024 Kiya Greer [employer] Referring Provider Active Start: November 05, 2024 End: November 05, 2024 Dr. Rose Mahmood , Attending physician Acti ve Start: November 05, 2024 End: November 05, 2024 Team Status: Inactive Member Role/Relationship Status Dates Kiya Greer [employer] Primary care physician Active Start: November 05, 2024 End: November 05, 2024 Dr. Rose Mahmood , Attending physician Acti ve Start: November 05, 2024 End: November 05, 2024 Dr. Rose Mahmood , Referring Provider Activ e Start: November 05, 2024 End: November 05, 2024 Team Status: Inactive Member Role/Relationship Status Dates Kiya Greer [employer] Primary care physician Active Start: December 01, 2024 End: December 01, 2024 Kiya Greer [employer] Referring Provider Active Start: December 01, 2024 End: December 01, 2024 Dr. Dorothy Lee MD Attending physician Active Start: December 01, 2024 End: December 01, 2024 Team Status: Inactive Member Role/Relationship Status Dates Kiya Greer [employer] Primary care physician Active Start: December 31, 2024 End: December 31, 2024 Kiya Greer [employer] Referring Provider Active Start: December 31, 2024 End: December 31, 2024 Dr. Rose Mahmood , Attending physician Acti ve Start: December 31, 2024 End: December 31, 2024 Team Status: Inactive Member Role/Relationship Status Dates Kiya Greer [employer] Primary care physician Active Start: January 26, 2025 End: January 26, 2025 Kiya Greer [employer] Referring Provider Active Start: January 26, 2025 End: January 26, 2025 Dr. Dorothy Lee MD Attending physician Active Start: January 26, 2025 End: January 26, 2025 Team Status: Inactive Member Role/Relationship Status Dates Kiya Greer [employer] Primary care physician Active Start: January 26, 2025 End: January 26, 2025 Ranjana Neil CNM Attending physician Active Start: January 26, 2025 End: January 26, 2025 Ranjana Neil CNM Referring Provider Active S tart: January 26, 2025 End: January 26, 2025 Team Status: Inactive Member Role/Relationship Status Dates Kiya Greer [employer] Primary care physician Active Start: February 11, 2025 End: February 11, 2025 Kiya Greer , [employer] Referring Provider Active Start: February 11, 2025 End: February 11, 2025 Dr. Rose Mahmood DO Attending physician Active Start: February End: February 11, 2025 Team Status: Inactive Member Role/Relationship Status Dates Kiya Gerer [employer] Primary care physician Active Start: February 25, 2025 End: February 25, 2025 Kiya Greer [employer] Referring Provider Active Start: February 25, 2025 End: February 25, 2025 Dr. Dorothy Lee MD Attending physician Active Start: February 25, 2025 End: February 25, 2025 Team Status: Inactive Member Role/Relationship Status Dates Kiya Greer [employer] Primary care physician Active Start: December 01, 2024 End: December 01, 2024 Kiya Greer [employer] Referring Provider Active Start: December 01, 2024 End: December 01, 2024 Dr. Dorothy Lee MD Attending physician Active Start: December 01, 2024 End: December 01, 2024 Team Status: Inactive Member Role/Relationship Status Dates Kiya Greer [employer] Primary care physician Active Start: December 31, 2024 End: December 31, 2024 Kiya Greer [employer] Referring Provider Active Start: December 31, 2024 End: December 31, 2024 Dr. Rose Mahmood DO Attending physician Acti ve Start: December 31, 2024 End: December 31, 2024 Team Status: Inactive Member Role/Relationship Status Dates Kiya Greer [employer] Primary care physician Active Start: January 26, 2025 End: January 26, 2025 Kiya Greer [employer] Referring Provider Active Start: January 26, 2025 End: January 26, 2025 Dr. Dorothy Lee MD Attending physician Active Start: January 26, 2025 End: January 26, 2025 Team Status: Inactive Member Role/Relationship Status Dates Kiya Greer [employer] Primary care physician Active Start: January 26, 2025 End: January 26, 2025 Ranjana Neil CNM Attending physician Active Start: January 26, 2025 End: January 26, 2025 Ranjana Neil CNM Referring Provider Active S tart: January 26, 2025 End: January 26, 2025 Team Status: Inactive Member Role/Relationship Status Dates Kiya Greer [employer] Primary care physician Active Start: February 11, 2025 End: February 11, 2025 Kiya Greer [employer] Referring Provider Active Start: February 11, 2025 End: February 11, 2025 Dr. Rose Mahmood DO Attending physician Active Start: February End: February 11, 2025 Team Status: Inactive Member Role/Relationship Status Dates Kiya Greer [employer] Primary care physician Active Start: February 25, 2025 End: February 25, 2025 Kiya Greer [employer] Referring Provider Active Start: February 25, 2025 End: February 25, 2025 Dr. Dorothy Lee MD Attending physician Active Start: February 25, 2025 End: February 25, 2025 Team Status: Inactive Member Role/Relationship Status Dates Kiya Greer [employer] Primary care physician Active Start: March 09, 2025 End: March 09, 2025 Kiya Greer [employer] Referring Provider Active Start: March 09, 2025 End: March 09, 2025 Dr. Rose Mahmood DO Attending physician Active Start: February End: March 09, 2025 Team Status: Inactive Member Role/Relationship Status Dates Kiya Greer [employer] Primary care physician Active Start: December 31, 2024 End: December 31, 2024 Kiya Greer [employer] Referring Provider Active Start: December 31, 2024 End: December 31, 2024 Dr. Rose Mahmood DO Attending physician Acti ve Start: December 31, 2024 End: December 31, 2024 Team Status: Inactive Member Role/Relationship Status Dates Kiya Greer [employer] Primary care physician Active Start: January 26, 2025 End: January 26, 2025 Kiya Greer [employer] Referring Provider Active Start: January 26, 2025 End: January 26, 2025 Dr. Dorothy Lee MD Attending physician Active Start: January 26, 2025 End: January 26, 2025 Team Status: Inactive Member Role/Relationship Status Dates Kiya Greer [employer] Primary care physician Active Start: January 26, 2025 End: January 26, 2025 Ranjana Neil CNM Attending physician Active Start: January 26, 2025 End: January 26, 2025 Ranjana Neil CNM Referring Provider Active S tart: January 26, 2025 End: January 26, 2025 Team Status: Inactive Member Role/Relationship Status Dates Kiya Greer [employer] Primary care physician Active Start: February 11, 2025 End: February 11, 2025 Kiya Greer [employer] Referring Provider Active Start: February 11, 2025 End: February 11, 2025 Dr. Rose Mahmood DO Attending physician Active Start: February End: February 11, 2025 Team Status: Inactive Member Role/Relationship Status Dates Kiya Greer [employer] Primary care physician Active Start: February 25, 2025 End: February 25, 2025 Kiya Greer [employer] Referring Provider Active Start: February 25, 2025 End: February 25, 2025 Dr. Dorothy Lee MD Attending physician Active Start: February 25, 2025 End: February 25, 2025 Team Status: Inactive Member Role/Relationship Status Dates Kiya Greer [employer] Primary care physician Active Start: March 09, 2025 End: March 09, 2025 Kiya Greer [employer] Referring Provider Active Start: March 09, 2025 End: March 09, 2025 Dr. Rose Mahmood DO Attending physician Active Start: February End: March 09, 2025 Team Status: Inactive Member Role/Relationship Status Dates Kiya Greer [employer] Primary care physician Active Start: March 23, 2025 End: March 23, 2025 Kiya Greer [employer] Referring Provider Active Start: March 23, 2025 End: March 23, 2025 Suzanne Salazar NP [employer] Attending physician Active Start: March 23, 2025 End: March 23, 2025 Team Status: Inactive Member Role/Relationship Status Dates Kiya Greer NP-C Primary care physician Active Start: April 06, 2025 End: April 06, 2025 Kiya Greer [employer] Referring Provider Active Start: April 06, 2025 End: April 06, 2025 Dr. Rose Mahmood DO Attending physician Acti ve Start: April 06, 2025 End: April 06, 2025 Team Status: Active Member Role/Relationship Status Dates Kiya Greer [employer] Primary care physician Active Start: April 06, [...] BE BASED ON THE PRIMARY CLINICAL RECORDS. [employer] provides no warranty or guarantee of the accuracy or completeness of information in this document.
--- OUTSIDE RECORDS SUMMARY | 2025-04-26 08:34 | XMS RPT_ITS | CCD ---
Author Organization [facility] ion Partnership [facility] CliniSyny Care Team Providers Care Fish Skinning Machine Feeder Name Role Phone Sowmya Baldwin E Unavailable Ele Osorio Unavailable Unavailable Unavailable Unavailable Rosalino Ramírez Unavailable Unavailable Unavailable Unavailable Denny Sowmya Unavailable Rosalino Ramírez LPN Unavailable Unavailable lEe Osorio Unavailable Unavailable Unavailable Unavailable Ciesa SHORT ORDER COOK, SHORT ORDER COOK-C [facility] Primary Care Provider Ciesa SHORT ORDER COOK, SHORT ORDER COOK-C [facility] Referring Provider [phone] Dr. Rose Mahmood Attending Provider [phone] Dr. Dorothy Lee Attending Provider [phone] Ciesa SHORT ORDER COOK, SHORT ORDER COOK-C [facility] Primary Care Provider Ciesa SHORT ORDER COOK, SHORT ORDER COOK-C [facility] Referring Provider [phone] Dr. Rose Mahmood Attending Provider [phone] Cidavida Sowmya Unavailable Percy WHEELER, Kiya Unavailable [phone] Percy WHEELER, Kiya Unavailable [phone] Cidavida Sowmya Unavailable Ciesa SHORT ORDER COOK, SHORT ORDER COOK-C [facility] Primary Care Provider Ciesa SHORT ORDER COOK, SHORT ORDER COOK-C [facility] Referring Provider [phone] Dr. Rose Mahmood Attending Provider [phone] Marie SHORT ORDER COOK, SHORT ORDER COOK-C Suzanne Attending Provider [phone] Odalys Farfan Attending Provider Unavailable Dr. Kirk Lemon Attending Provider Percy, SHORT ORDER COOK-C Ikya Primary Care Provider [phone] Ciesa SHORT ORDER COOK, SHORT ORDER COOK-C [facility] Primary Care Provider Ciesa SHORT ORDER COOK, SHORT ORDER COOK-C Sowmya Referring Provider [phone] Dr. Dorothy Lee Attending Provider [phone] Percy, SHORT ORDER COOK-C Kiya Referring Provider [phone] Dr. Dorothy Lee Admit Provider [phone] Dr. Dorothy Lee Other Provider Percy NURSERY HAND, Kiya Attending Unavailable Percy NURSERY HAND, Kiya Referring Unavailable Percy NURSERY HAND, Kiya Consulting Unavailable Slarb PERFORATOR TYPIST, Lilian Unavailable Unavailable Percy SHORT ORDER COOK-C, Kiya Primary Care Provider [phone] Percy SHORT ORDER COOK-C, Kyia Referring Provider Dr. Dorothy Lee MD Attending Provider Dr. Dorothy Lee MD Referring Provider [phone] Dr. Rose Mahmood DO Attending Provider Dr. Rose Mahmood DO Referring Provider NO PRIMARY CARE, Primary Care Unavailable IRENE CARL Attending Unavailable ROSE FRIEDMAN Referring Unavailab le NO PRIMARY CARE, Primary Care Unavailable ROSE FRIEDMAN Referring Unavailab le LÓPEZ WHALEN Attending Unavailable Ranjana Neil CNM Attending Provider [phone] Ranjana Neil CNM Referring Provider [phone] Percy SHORT ORDER COOK-C, Kiya Primary Care Provider [phone] Percy SHORT ORDER COOK-C, Kiya Referring Provider Dr. Dorothy Lee MD Attending Provider Percy SHORT ORDER COOK-C, Kiya Primary Care Physician [phone] Dr. Rose Mahmood DO Attending Physician Dr. Dorothy Lee MD Attending Physician Rashaad JOHNSON, Ranjana Attending Physician [phone] Percy SHORT ORDER COOK-C, Kiya Primary Care Physician [phone] Percy SHORT ORDER COOK-C, Kiya Referring Provider [phone] Dr. Rose Mahmood DO Attending Physician Percy SHORT ORDER COOK-C, Kiya Primary Care Physician [phone] Percy SHORT ORDER COOK-C, Kiya Referring Provider [phone] Jesus URBINA, Dr. De La Cruz Attending Physician Marie SHORT ORDER COOK-C, Suzanne Attending Physician [phone] Percy, Kiya Referring [...] Referring Unavailable Percy, Kiya Primary Care Unavailable Harrison SHORT ORDER COOK, Suzanne Attending Unavailable Percy, Kiya Referring Unavailable [...] Primary Care Unavailable Percy, Kiya Referring Unavailable Harrison SHORT ORDER COOKSuzanne Referring Unavailable Harrison SHORT ORDER COOK, Suzanne Attending Unavailable Percy, Kiya Primary Care [...] Translations: [Penicillin G Procaine *PENICILLINS*] Drug Allergy [facility] Work Phone: (17 sources) Penicillins; Translations: [Penicillins] Allergy to substance 2 [facility] Medications Current Medications Medication Drug Class(es) Dates [...] A DAY December 14, 2021 12:00am Multivit 86-Xgew-Ytjfcz 1-Dha (Pnv-Dha) 27 mg iron-1 mg -300 mg capsule (16 sources) Start: 06-14-2021 Multivit 95-Eper-Cbyaob 1-Dha (Pnv-Dha) 27 mg iron-1 mg -300 [...] 09-19-2022 Chronic Comment on above: treated by MANAGER LOSS PREVENTION Dr Abiel Lee, put her on buspar. [...] AST [Catalytic activity/Vol] 20 U/L Normal <=31 [facility] Comment on above: Performed By: #### L 501.1400, L501.0900, L501.4100, L501.4405, L100.0500, L501.1105 ####[facility] [address] [place], [place], [id number] Alanine Aminotransferas (SGP T)on 04-20-2025 ALT [Catalytic activity/Vol] 16 U/L Normal <=34 [facility] Comment on above: Performed By: #### L 501.1400, L501.0900, L501.4100, L501.4405, L100.0500, L501.1105 ####[facility] [address] [place], [address] CBC-Complete Blood Cnt No Di ffon 04-20-2025 Erythrocyte distribution width (RBC) [Ratio] 14.7 % High 11.6-14.6 [facility] Comment on above: Performed By: #### L 501.1400, L501.0900, L501.4100, L501.4405, L100.0500, L501.1105 ####[facility] [address] [place], [address] Hematocrit (Bld) [Volume fraction] 35.0 % Low 37-47 [facility] Comment on above: Performed By: #### L 501.1400, L501.0900, L501.4100, L501.4405, L100.0500, L501.1105 ####[facility] [address] [place], [address] Hemoglobin (Bld) [Mass/Vol] 11.8 g/dL Low 12.0-15.0 [facility] Comment on above: Performed By: #### L 501.1400, L501.0900, L501.4100, L501.4405, L100.0500, L501.1105 ####[facility] [address] [place], [address] MCH (RBC) [Entitic mass] 30.3 pg Normal 27.0-32.0 [facility] Comment on above: Performed By: #### L 501.1400, L501.0900, L501.4100, L501.4405, L100.0500, L501.1105 ####[facility] [address] [place], [address] MCHC (RBC) [Mass/Vol] 33.7 g/dL Normal 32-36 [facility] Comment on above: Performed By: #### L 501.1400, L501.0900, L501.4100, L501.4405, L100.0500, L501.1105 ####[facility] [address] [place], [address] MCV (RBC) [Entitic vol] 89.7 fL Normal 81-99 [facility] Comment on above: Performed By: #### L 501.1400, L501.0900, L501.4100, L501.4405, L100.0500, L501.1105 ####[facility] [address] [place], [address] Platelet mean volume (Bld) [Entitic vol] 10.9 fL Normal 6.2-12.0 [facility] Comment on above: Performed By: #### L 501.1400, L501.0900, L501.4100, L501.4405, L100.0500, L501.1105 ####[facility] [address] [place], [address] Platelets (Bld) [#/Vol] 158 10*3/uL Normal 150-450 [facility] Comment on above: Performed By: #### L 501.1400, L501.0900, L501.4100, L501.4405, L100.0500, L501.1105 ####[facility] [address] [place], [address] RBC (Bld) [#/Vol] 3.90 10*6/uL Low 4.2-5.4 [facility] Comment on above: Performed By: #### L 501.1400, L501.0900, L501.4100, L501.4405, L100.0500, L501.1105 ####[facility] [address] [place], [address] RDW SD 46.9 fl High 35.1-43.9 [facility] Comment on above: Performed By: #### L 501.1400, L501.0900, L501.4100, L501.4405, L100.0500, L501.1105 ####[facility] [address] [place], [address] WBC (Bld) [#/Vol] 8.1 10*3/uL Normal 4.4-11.0 [facility] Comment on above: Performed By: #### L 501.1400, L501.0900, L501.4100, L501.4405, L100.0500, L501.1105 ####[facility] [address] [place], [address] OB Triage Progress Noteon OB Triage Progress Note [facility] Medical Records Department [address] [place] [address] OB Triage Progress Note 04/20/25 1334 MR#: [id number] Acct: [id number] Name: MARTIN CASTELLANOS Rep #: [id number] : 1995 29 From: Dorothy Lee MD PCP: Kiya Greer NP-C Status:REG CLI Y DOS: Location: [place] [address] Progress Notes Date of Service: 04/20/25 Progress Note: Patient presents for triage evaluation secondary to elevated bps in the office FHT: 130 Moderate variability reactive no decelerations category I tracing [place]: no regular Contractions Assessment and plan: elevated [...] (0-200) mg/g CRE Charges/Coding Procedures Urinary/Genital 52xxx-59xxx: 29290-89 non-stress test Interp 04/20/25 1336 Date Dorothy Lee MD Cosigner Signature (if applicable): Date CC: SHORT ORDER COOKAnilC Kiya Greer; Dr. Dorothy Lee MD Signed Normal [facility] Rail Loader Office Visit Reporton 04-20-2025 Rail Loader Office Visit Report [facility] [address], [address] [place] [address] OFFICE VISIT Date of Service: 04/20/25 MR#: [id number] Acct: [id number] Name: MARTIN CASTELLANOS LUZ Rep #: [id number] : 1995 Provider: Dr. Dorothy fields MD Age/Sex: 29/F Location: [facility] [place] [place] Status: Signed Intake Vital Signs 03/23/25 13:40 04/14/25 08:57 04/20/25 10:44 04/20/25 10:48 04/20/25 10:48 Height 5 ft 4 in 5 ft 4 in 5 ft 4 in 5 ft 4 in Weight: 210 lb 4 oz 209 lb 7 oz BMI 36.1 35.9 BP 135/82 H 145/91 H 135/92 H Intake Visit Reasons: 38wk 5d ob Shank Threader Required: No Is patient in pain?: No [...] 1 current occupational status: employed current occupation: [employer] pets and animals: Yes pets [...] times per week duration: 30-45 minutes/day juan alberto/caodaism: Holiness seatbelt use: always do you feel safe [...] - full term 8#3oz Female epidural [facility] audra Mobley Delivery Date: 02/05/22 Last [...] -???-???-???-???-???-? ??-???-???-???-???-?? (more content not included)... Normal [facility] Protein+Creatinine Ratio,Uri neon 04-20-2025 PROT:CRE RATIO 195 mg/g CRE Normal 0-200 [facility] Comment on above: Performed By: #### L 501.1400, L501.0900, L501.4100, L501.4405, L100.0500, L501.1105 ####[facility] [address] [place], [place], [id number] Protein (U) [Mass/Vol] 9.3 mg/dL Normal 0.0-12.0 [facility] Comment on above: Performed By: #### L 501.1400, L501.0900, L501.4100, L501.4405, L100.0500, L501.1105 ####[facility] [address] [place], [address] UR CREAT 47.90 mg/dL Normal 28.00-217.00 [facility] Comment on above: Performed By: #### L 501.1400, L501.0900, L501.4100, L501.4405, L100.0500, L501.1105 ####[facility] [address] [place], [address] Serum Creatinine AND GFRon 1 06-20-2024 Creatinine [Mass/Vol] 0.63 mg/dL Low 0.70-1.20 [facility] Comment on above: Performed By: #### L 501.1400, L501.0900, L501.4100, L501.4405, L100.0500, L501.1105 ####[facility] [address] [place], [address] ECRCL 147.14 ml/min Normal 50-250 [facility] Comment on above: Performed By: #### L 501.1400, L501.0900, L501.4100, L501.4405, L100.0500, L501.1105 ####[facility] [address] [place], [address] GFR/1.73 sq M.predicted among non-blacks MDRD (S/P/Bld) [Vol rate/Area] 123 mL/min/{1.73_m2} Normal >60 [facility] Comment on above: Result Comment: mL/m in/1.73m2 CKD-EPI Creatinine Equation (2020) Performed By: #### L 501.1400, L501.0900, L501.4100, L501.4405, L100.0500, L501.1105 ####[facility] [address] [place], [address] Uric Acidon 04-20-2025 URIC 4.8 mg/dL Normal 2.6-6.0 [facility] Comment on above: Result Comment: The drugs N-Acetylcysteine and Metamizole may falsely depress this assay. Performed By: #### L 501.1400, L501.0900, L501.4100, L501.4405, L100.0500, L501.1105 ####[facility] [address] [place], [address] Rail Loader Office Visit Reporton 04-14-2025 Rail Loader Office Visit Report [facility] [address], [address] [place] [address] OFFICE VISIT Date of Service: 04/14/25 MR#: [id number] Acct: [id number] Name: MARTIN CASTELLANOS Rep #: [id number] : 1995 Provider: Dr. Rose Wolfe DO Age/Sex: 29/F Location: [facility] [place] Status: Signed Intake Vital Signs 03/23/25 13:40 04/06/25 14:20 04/14/25 08:57 04/14/25 09:24 Height 5 ft 4 in 5 ft 4 in 5 ft 4 in Weight: 210 lb 4 oz BMI 36.1 BP 135/82 H 124/82 H Intake Visit Reasons: 37wk 6d ob Chief Complaint: 37wk OB Shank Threader Required: No Is patient in pain?: No [...] 1 current occupational status: employed current occupation: [employer] pets and animals: Yes pets [...] times per week duration: 30-45 minutes/day juan alberto/caodaism: Holiness seatbelt use: always do you feel safe [...] - full term 8#3oz Female epidural [facility] audra Mobley Delivery Date: 02/05/22 Last [...] 129/78 -???- (more content not included)... Normal [facility] Rule out Beta Strep (Grp. B) on 04-08-2025 LUIS Group B Beta Streptococcus is not isolated. Normal [facility] Comment on above: Performed By: #### M 1003400 ####[facility] [address] [place], [address] Laboratory - Chemistry and C hemistry - challengeOrdered By: Rose Man on 04-06-2025 Glucose Ql (U) Negative [facility] Laboratory - UrinalysisOrder ed By: Rose Man on 04-06-2025 Protein Ql (U) Negative [facility] Rail Loader Office Visit Reporton 04-06-2025 Rail Loader Office Visit Report [facility] [address], [address] [place] [address] OFFICE VISIT Date of Service: 04/06/25 MR#: [id number] Acct: [id number] Name: MARTIN CASTELLANOS Rep #: [id number] : 1995 Provider: Dr. Rose Wolfe, Age/Sex: 29/F Location: [facility] [place] Status: Signed Intake Vital Signs 02/11/25 09:41 03/23/25 13:40 04/06/25 14:18 04/06/25 14:20 Height 5 ft 4 in 5 ft 4 in 5 ft 4 in 5 ft 4 in Weight: 207 lb 1 oz 206 lb 2 oz BMI 35.5 35.4 BP 112/81 H 126/81 H Intake Visit Reasons: 36wk 5d ob Shank Threader Required: No Is patient in pain?: No [...] 1 current occupational status: employed current occupation: [employer] pets and animals: Yes pets [...] times per week duration: 30-45 minutes/day juan alberto/caodaism: Holiness seatbelt use: always do you feel safe [...] live - full term 8#3oz Female epidural [facility] Jesus Mobley Delivery Date: 02/05/22 [...] 171 lb (more content not included)... Normal [facility] Laboratory - Chemistry and C hemistry - challengeOrdered By: Suzanne Salazar on 03-23-2025 Glucose Ql (U) Negative [facility] Laboratory - UrinalysisOrder ed By: Suzanne Salazar on 03-23-2025 Protein Ql (U) Negative [facility] Rail Loader Office Visit Reporton 03-23-2025 Rail Loader Office Visit Report [facility] [address], [address] [place] [address] OFFICE VISIT Date of Service: 03/23/25 MR#: [id number] Acct: [id number] Name: MARTIN CASTELLANOS Rep #: [id number] : 1995 Provider: LUCINDA rodriguez Age/Sex: 29/F Location: [facility] [place] Status: Signed Intake Vital Signs 02/11/25 09:41 03/09/25 09:27 03/23/25 13:40 Height 5 ft 4 in 5 ft 4 in 5 ft 4 in Weight: 207 lb 1 oz BMI 35.5 BP 112/81 H Intake Visit Reasons: 34wk ob Shank Threader Required: No Is patient in pain?: No [...] 1 current occupational status: employed current occupation: [employer] pets and animals: Yes pets [...] times per week duration: 30-45 minutes/day juan alberto/caodaism: Holiness seatbelt use: always do you feel safe [...] - full term 8#3oz Female epidural [facility] audra Mobley Delivery Date: 02/05/22 Last [...] ??-???-???-???-???-??? -???- (more content not included)... Normal [facility] Laboratory - Chemistry and C hemistry - challengeOrdered By: Rose Man on 03-09-2025 Glucose Ql (U) Negative [facility] Laboratory - UrinalysisOrder ed By: Rose Man on 03-09-2025 Protein Ql (U) Negative [facility] Rail Loader Office Visit Reporton 03-09-2025 Rail Loader Office Visit Report [facility] [address], [address] [place] [address] OFFICE VISIT Date of Service: 03/09/25 MR#: [id number] Acct: [id number] Name: MARTIN CASTELLANOS Rep #: [id number] : 1995 Provider: Dr. Rose Wolfe DO Age/Sex: 29/F Location: [facility] [place] Status: Signed Intake Vital Signs 12/31/24 08:38 02/25/25 09:45 03/09/25 09:27 Height 5 ft 4 in 5 ft 4 in 5 ft 4 in Weight: 203 lb 6 oz BMI 34.9 BP 119/79 Intake Visit Reasons: 32 WK OB Chief Complaint: 32wk OB Shank Threader Required: No Is patient in pain?: No [...] 1 current occupational status: employed current occupation: [employer] pets and animals: Yes pets [...] times per week duration: 30-45 minutes/day juan alberto/caodaism: Holiness seatbelt use: always do you feel safe [...] -???- 165 (more content not included)... Normal [facility] Laboratory - Chemistry and C hemistry - challengeOrdered By: Dorothy Lee on 02-25-2025 Glucose Ql (U) Negative [facility] Laboratory - UrinalysisOrder ed By: Dorothy Lee on 02-25-2025 Protein Ql (U) Negative [facility] Rail Loader Office Visit Reporton 02-25-2025 Rail Loader Office Visit Report [facility] [address], [address] [place] [address] OFFICE VISIT Date of Service: 02/25/25 MR#: [id number] Acct: [id number] Name: MARTIN CASTELLANOS Rep #: [id number] : 1995 Provider: Dr. Dorothy fields MD Age/Sex: 29/F Location: [facility] [place] Status: Signed Intake Vital Signs 12/31/24 08:38 02/11/25 09:41 02/25/25 09:45 Height 5 ft 4 in 5 ft 4 in 5 ft 4 in Weight: 201 lb 4 oz BMI 34.5 BP 131/82 H Intake Visit Reasons: 30 WK OB Shank Threader Required: No Is patient in pain?: No [...] 1 current occupational status: employed current occupation: [employer] pets and animals: Yes pets [...] times per week duration: 30-45 minutes/day juan alberto/caodaism: Holiness seatbelt use: always do you feel safe [...] - full term 8#3oz Female epidural [facility] audra Mobley Delivery Date: 02/05/22 Last [...] 165 -???-???-???- (more content not included)... Normal [facility] Laboratory - Chemistry and C hemistry - challengeOrdered By: Rose Man on 02-11-2025 Glucose Ql (U) Negative [facility] Laboratory - UrinalysisOrder ed By: Rose Man on 02-11-2025 Protein Ql (U) Negative [facility] Rail Loader Office Visit Reporton 02-11-2025 Rail Loader Office Visit Report [facility] [address], [address] [place] [address] OFFICE VISIT Date of Service: 02/11/25 MR#: [id number] Acct: [id number] Name: MARTIN CASTELLANOS Rep #: [id number] : 1995 Provider: Dr. Rose Wolfe DO Age/Sex: 29/F Location: [facility] [place] Status: Signed Intake Vital Signs 12/01/24 10:16 01/26/25 09:18 02/11/25 09:39 02/11/25 09:41 Height 5 ft 4 in 5 ft 4 in 5 ft 4 in 5 ft 4 in Weight: 200 lb 2 oz BMI 34.3 BP 127/80 H Intake Visit Reasons: 28 wk ob Shank Threader Required: No Is patient in pain?: No [...] 1 current occupational status: employed current occupation: [employer] pets and animals: Yes pets [...] times per week duration: 30-45 minutes/day juan alberto/caodaism: Holiness seatbelt use: always do you feel safe [...] - full term 8#3oz Female epidural [facility] audra Mobley Delivery Date: 02/05/22 Last [...] -???-???-???-???-???-? ??-???-???-? (more content not included)... Normal [facility] Absolute lymphocyte countOrd ered By: Rose Man on 01-26-2025 Lymphocytes Auto (Unsp spec) [#/Vol] 1.16 10*3/uL 0.83-4.51 [facility] Absolute neutrophil countOrd ered By: Rose Man on 01-26-2025 Neutrophils (Bld) [#/Vol] 4.8 10*3/uL 2.0-7.7 [facility] Automated lymphocyte count a s percentage of total leukocytesOrdered By: Rose Man on 01-26-2025 Lymphocytes/100 WBC Auto (Unsp spec) 16.6 % Low 19-41 [facility] Basophil percentageOrdered B y: Rose Man on 01-26-2025 Basophils/100 WBC (Bld) 0.6 % 0-1 [facility] CBC W/Diff, Automatedon 01-09 Absolute Lymph 1.16 X10 3/uL Normal 0.83-4.51 [facility] Comment on above: Performed By: #### L 100.0100, L501.0250, L509.8002, L3890.6006 ####[facility] [address] [place], [address] Absolute Neut 4.8 X10 3/uL Normal 2.0-7.7 [facility] Comment on above: Performed By: #### L 100.0100, L501.0250, L509.8002, L3890.6006 ####[facility] [address] [place], [address] Basophils/100 WBC (Bld) 0.6 % Normal 0-1 [facility] Comment on above: Performed By: #### L 100.0100, L501.0250, L509.8002, L3890.6006 ####[facility] [address] [place], [address] Eosinophils/100 WBC (Bld) 2.1 % Normal 0-5 [facility] Comment on above: Performed By: #### L 100.0100, L501.0250, L509.8002, L3890.6006 ####[facility] [address] [place], [address] Erythrocyte distribution width (RBC) [Ratio] 15.3 % High 11.6-14.6 [facility] Comment on above: Performed By: #### L 100.0100, L501.0250, L509.8002, L3890.6006 ####[facility] [address] [place], [address] Hematocrit (Bld) [Volume fraction] 35.4 % Low 37-47 [facility] Comment on above: Performed By: #### L 100.0100, L501.0250, L509.8002, L3890.6006 ####[facility] [address] [place], [address] Hemoglobin (Bld) [Mass/Vol] 11.8 g/dL Low 12.0-15.0 [facility] Comment on above: Performed By: #### L 100.0100, L501.0250, L509.8002, L3890.6006 ####[facility] [address] [place], [address] IG% 4.600 High 0.0-0.9 [facility] Comment on above: Result Comment: IG% - Immature Granulocytes (promyelocytes, myelocytes and metamyelocytes) > 1% indicates that a LEFT SHIFT is Present. Performed By: #### L 100.0100, L501.0250, L509.8002, L3890.6006 ####[facility] [address] [place], [address] Lymphocytes/100 WBC (Bld) 16.6 % Low 19-41 [facility] Comment on above: Performed By: #### L 100.0100, L501.0250, L509.8002, L3890.6006 ####[facility] [address] [place], [address] MCH (RBC) [Entitic mass] 31.3 pg Normal 27.0-32.0 [facility] Comment on above: Performed By: #### L 100.0100, L501.0250, L509.8002, L3890.6006 ####[facility] [address] [place], [address] MCHC (RBC) [Mass/Vol] 33.3 g/dL Normal 32-36 [facility] Comment on above: Performed By: #### L 100.0100, L501.0250, L509.8002, L3890.6006 ####[facility] [address] [place], [address] MCV (RBC) [Entitic vol] 93.9 fL Normal 81-99 [facility] Comment on above: Performed By: #### L 100.0100, L501.0250, L509.8002, L3890.6006 ####[facility] [address] [place], [address] Monocytes/100 WBC (Bld) 7.2 % Normal 0-10 [facility] Comment on above: Performed By: #### L 100.0100, L501.0250, L509.8002, L3890.6006 ####[facility] [address] [place], [address] Neutrophils/100 WBC (Bld) 68.9 % Normal 47-70 [facility] Comment on above: Performed By: #### L 100.0100, L501.0250, L509.8002, L3890.6006 ####[facility] [address] [place], [address] Nucleated RBC (Bld) [#/Vol] 0 10*3/uL Normal 0-5 [facility] Comment on above: Performed By: #### L 100.0100, L501.0250, L509.8002, L3890.6006 ####[facility] [address] [place], [address] Platelet mean volume (Bld) [Entitic vol] 10.5 fL Normal 6.2-12.0 [facility] Comment on above: Performed By: #### L 100.0100, L501.0250, L509.8002, L3890.6006 ####[facility] [address] [place], [address] Platelets (Bld) [#/Vol] 182 10*3/uL Normal 150-450 [facility] Comment on above: Performed By: #### L 100.0100, L501.0250, L509.8002, L3890.6006 ####[facility] [address] [place], [address] RBC (Bld) [#/Vol] 3.77 10*6/uL Low 4.2-5.4 [facility] Comment on above: Performed By: #### L 100.0100, L501.0250, L509.8002, L3890.6006 ####[facility] [address] [place], [address] RDW SD 53.1 fl High 35.1-43.9 [facility] Comment on above: Performed By: #### L 100.0100, L501.0250, L509.8002, L3890.6006 ####[facility] [address] [place], [address] WBC (Bld) [#/Vol] 7.0 10*3/uL Normal 4.4-11.0 [facility] Comment on above: Performed By: #### L 100.0100, L501.0250, L509.8002, L3890.6006 ####[facility] [address] [place], [address] Eosinophil percentageOrdered By: Rose Man on 01-26-2025 Eosinophils/100 WBC (Bld) 2.1 % 0-5 [facility] Erythrocyte distribution wid th ratioOrdered By: Rose Man on 01-26-2025 Erythrocyte distribution width (RBC) [Ratio] 15.3 % High 11.6-14.6 [facility] Erythrocyte distribution wid th standard deviationOrdered By: Rose Man on 01-26-2025 Erythrocyte distribution width (RBC) [Ratio] 53.1 fl High 35.1-43.9 [facility] Glucose Challenge Gest 1H 50 aleyda 01-26-2025 GLU GEST 50g 1H 112 mg/dL Normal 70-140 [facility] Comment on above: Performed By: #### L 100.0100, L501.0250, L509.8002, L3890.6006 ####[facility] [address] [place], [place], [id number] Glucose measurement at 2 larry rs post-dose gestational glucose tolerance testOrdered By: Rose Man on 01-26-2025 Glucose [Mass/Vol] 112 mg/dL 70-140 [facility] HIVon 01-26-2025 HIV Non-Reactive Normal Nonreactive [facility] Comment on above: Result Comment: Non- Reactive Reactive Repeatedly reactive samples must be confirmed according to CDC recommended confirmatory algorithms. The subresults for either HIVAG or AHIV can be used as an aid in the selection of the confirmation algorithm for reactive samples. Send out specimens with Reactive results to [facility] for confirmation. Order the HIV antibody detection and differentiation: [id number] Performed By: #### L 100.0100, L501.0250, L509.8002, L3890.6006 ####[facility] [address] [place], [address] Hematocrit Auto (Bld) [Volum e fraction]Ordered By: Rose Man on 01-26-2025 Hematocrit (Bld) [Volume fraction] 35.4 % Low 37-47 [facility] Hemoglobin measurementOrdere d By: Rose Man on 01-26-2025 Hemoglobin (Bld) [Mass/Vol] 11.8 g/dL Low 12.0-15.0 [facility] Immature granulocytes/100 WB C Auto (Bld)Ordered By: Rose Man on 01-26-2025 Immature granulocytes/100 WBC (Bld) 4.600 % High 0.0-0.9 [facility] Comment on above: IG% - Immature Granu locytes (promyelocytes, myelocytes and metamyelocytes) > 1% indicates that a LEFT SHIFT is Present. Laboratory - Chemistry and C hemistry - challengeOrdered By: Dorothy Lee on 01-26-2025 Glucose Ql (U) Negative [facility] Laboratory - UrinalysisOrder ed By: Dorothy Lee on 01-26-2025 Protein Ql (U) Negative [facility] MCV (mean corpuscular volume ) determinationOrdered By: Rose Man on 01-26-2025 MCV (RBC) [Entitic vol] 93.9 fL 81-99 [facility] Mean corpuscular hemoglobin (MCH) determinationOrdered By: Rose Man on 01-26-2025 MCH (RBC) [Entitic mass] 31.3 pg 27.0-32.0 [facility] Mean corpuscular hemoglobin concentration (MCHC) determinationOrdered By: Rose Man on 01-26-2025 MCHC (RBC) [Mass/Vol] 33.3 g/dL 32-36 [facility] Mean platelet volume determi nationOrdered By: Rose Man on 01-26-2025 Platelet mean volume (Bld) [Entitic vol] 10.5 fL 6.2-12.0 [facility] Monocyte percentageOrdered B y: Rose Man on 01-26-2025 Monocytes/100 WBC (Bld) 7.2 % 0-10 [facility] Neutrophil percentageOrdered By: Rose Man on 01-26-2025 Neutrophils/100 WBC (Bld) 68.9 % 47-70 [facility] No Panel InformationOrdered By: Rose Man on 01-26-2025 HIV (1&2) Antibody Non-Reactive Nonreactive [facility] Comment on above: Non-ReactiveReactive Repeatedly reactive samples must be confirmed according to CDC recommended confirmatory algorithms. The subresults for either HIVAG or AHIV can be used as an aid in the selection of the confirmation algorithm for reactive samples.Send out specimens with Reactive results to [facility] for confirmation.Order the HIV antibody detection and differentiation: #[id number] Nucleated red blood cell per centageOrdered By: Rose Man on 01-26-2025 Nucleated RBC/100 WBC (Bld) [Ratio] 0 % 0-5 [facility] Office Visit Reporton 01-26-2025 Rail Loader Office Visit Report [facility] [address], [address] [place] [address] OFFICE VISIT Date of Service: 01/26/25 MR#: [id number] Acct: [id number] Name: MARTIN CASTELLANOS Rep #: [id number] : 1995 Provider: Dr. Dorothy fields MD Age/Sex: 29/F Location: [facility] [place] Status: Signed Intake Vital Signs 12/01/24 10:16 12/31/24 08:38 01/26/25 09:18 Height 5 ft 4 in 5 ft 4 in 5 ft 4 in Weight: 197 lb 2 oz BMI 33.8 BP 131/76 H Intake Visit Reasons: 26 wk ob/glucose Shank Threader Required: No Is patient in pain?: No [...] 1 current occupational status: employed current occupation: [employer] pets and animals: Yes pets [...] times per week duration: 30-45 minutes/day juan alberto/caodaism: Holiness seatbelt use: always do you feel safe [...] - full term 8#3oz Female epidural [facility] audra Jesus Mobley Delivery Date: 02/05/22 [...] -???- SM- (more content not included)... Normal [facility] Platelet countOrdered By: Reji Man on 01-26-2025 Platelets (Bld) [#/Vol] 182 10*3/uL 150-450 [facility] RBC Auto (Bld) [#/Vol]Ordere d By: Rose Man on 01-26-2025 RBC (Bld) [#/Vol] 3.77 10*6/uL Low 4.2-5.4 [facility] Syphilis Antibodieson 2024 Syphilis Abs Non-Reactive Normal Nonreactive [facility] Comment on above: Performed By: #### L 100.0100, L501.0250, L509.8002, L3890.6006 ####[facility] [address] [place], [place], [address] White blood cell (WBC) count Ordered By: Rose Man on 01-26-2025 WBC (Bld) [#/Vol] 7.0 10*3/uL 4.4-11.0 [facility] Laboratory - Chemistry and C hemistry - challengeOrdered By: Rose Man on 12-31-2024 Glucose Ql (U) Negative [facility] Laboratory - UrinalysisOrder ed By: Rose Man on 12-31-2024 Protein Ql (U) Negative [facility] Office Visit Reporton 12-31-2024 Rail Loader Office Visit Report [address], [address] [place] [address] OFFICE VISIT Date of Service: 12/31/24 MR#: [id number] Acct: [id number] Name: MARTIN CASTELLANOS Rep #: [id number] : 1995 Provider: Dr. Rose Wolfe DO Age/Sex: 29/F Location: [facility] [place] [place] Status: Signed Intake Vital Signs 11/05/24 08:44 12/01/24 10:16 12/31/24 08:37 12/31/24 08:38 Height 5 ft 4 in 5 ft 4 in 5 ft 4 in 5 ft 4 in Weight: 192 lb 8 oz BMI 33.0 BP 108/74 Intake Visit Reasons: 22 wk ob Shank Threader Required: No Is patient in pain?: No [...] 1 current occupational status: employed current occupation: [employer] pets and animals: Yes pets [...] times per week duration: 30-45 minutes/day juan alberto/caodaism: Holiness seatbelt use: always do you feel safe [...] - full term 8#3oz Female epidural [facility] audra Jesus Mobley Delivery Date: 02/05/22 [...] -???-???-???-???-???-? ??-???-???-??? (more content not included)... Normal [facility] Laboratory - Chemistry and C hemistry - challengeOrdered By: Dorothy Lee on 12-01-2024 Glucose Ql (U) Negative [facility] Laboratory - UrinalysisOrder ed By: Dorothy Lee on 12-01-2024 Protein Ql (U) Negative [facility] Rail Loader Office Visit Reporton 12-01-2024 Rail Loader Office Visit Report [facility] [address], [address] [place] [address] OFFICE VISIT Date of Service: 12/01/24 MR#: [id number] Acct: [id number] Name: EMANUELMARTIN LUZ Rep #: [id number] : 1995 Provider: Dr. Dorothy fields MD Age/Sex: 29/F Location: [facility] [place] Status: Signed Intake Vital Signs 09/29/24 10:27 11/05/24 08:44 12/01/24 10:16 Height 5 ft 4 in 5 ft 4 in 5 ft 4 in Weight: 181 lb 4 oz BMI 31.1 BP 137/73 H Intake Visit Reasons: 18 wk ob Shank Threader Required: No Is patient in pain?: No [...] 1 current occupational status: employed current occupation: [employer] pets and animals: Yes pets [...] times per week duration: 30-45 minutes/day juan alberto/caodaism: Holiness seatbelt use: always do you feel safe [...] - full term 8#3oz Female epidural [facility] audra Jesus Mobley Delivery Date: 02/05/22 [...] 165 - (more content not included)... Normal [facility] Absolute lymphocyte countOrd ered By: Dorothy Nuneskaylynn on 11-05-2024 Lymphocytes Auto (Unsp spec) [#/Vol] 1.48 10*3/uL 0.83-4.51 [facility] Absolute neutrophil countOrd ered By: Dorothy Nuneskaylynn on 11-05-2024 Neutrophils (Bld) [#/Vol] 5.7 10*3/uL 2.0-7.7 [facility] Automated lymphocyte count a s percentage of total leukocytesOrdered By: Dorothy Jesus on 11-05-2024 Lymphocytes/100 WBC Auto (Unsp spec) 18.6 % Low 19-41 [facility] Basophil percentageOrdered B y: Dorothy Nuneskaylynn on 11-05-2024 Basophils/100 WBC (Bld) 0.3 % 0-1 [facility] CBC W/Diff, Automatedon 10-10 Absolute Lymph 1.48 X10 3/uL Normal 0.83-4.51 [facility] Comment on above: Performed By: #### L 100.0100, L3890.6006, L509.8002, BTS, L509.4006, L3890.6301, L3890.6102 ####[facility] [address] [place], [address] Absolute Neut 5.7 X10 3/uL Normal 2.0-7.7 [facility] Comment on above: Performed By: #### L 100.0100, L3890.6006, L509.8002, BTS, L509.4006, L3890.6301, L3890.6102 ####[facility] [address] [place], [address] Basophils/100 WBC (Bld) 0.3 % Normal 0-1 [facility] Comment on above: Performed By: #### L 100.0100, L3890.6006, L509.8002, BTS, L509.4006, L3890.6301, L3890.6102 ####[facility] [address] [place], [address] Eosinophils/100 WBC (Bld) 2.8 % Normal 0-5 [facility] Comment on above: Performed By: #### L 100.0100, L3890.6006, L509.8002, BTS, L509.4006, L3890.6301, L3890.6102 ####[facility] [address] [place], [address] Erythrocyte distribution width (RBC) [Ratio] 14.2 % Normal 11.6-14.6 [facility] Comment on above: Performed By: #### L 100.0100, L3890.6006, L509.8002, BTS, L509.4006, L3890.6301, L3890.6102 ####[facility] [address] [place], [address] Hematocrit (Bld) [Volume fraction] 38.3 % Normal 37-47 [facility] Comment on above: Performed By: #### L 100.0100, L3890.6006, L509.8002, BTS, L509.4006, L3890.6301, L3890.6102 ####[facility] [address] [place], [address] Hemoglobin (Bld) [Mass/Vol] 12.8 g/dL Normal 12.0-15.0 [facility] Comment on above: Performed By: #### L 100.0100, L3890.6006, L509.8002, BTS, L509.4006, L3890.6301, L3890.6102 ####[facility] [address] [place], [address] IG% 1.100 High 0.0-0.9 [facility] Comment on above: Result Comment: IG% - Immature Granulocytes (promyelocytes, myelocytes and metamyelocytes) > 1% indicates that a LEFT SHIFT is Present. Performed By: #### L 100.0100, L3890.6006, L509.8002, BTS, L509.4006, L3890.6301, L3890.6102 ####[facility] [address] [place], [address] Lymphocytes/100 WBC (Bld) 18.6 % Low 19-41 [facility] Comment on above: Performed By: #### L 100.0100, L3890.6006, L509.8002, BTS, L509.4006, L3890.6301, L3890.6102 ####[facility] [address] [place], [address] MCH (RBC) [Entitic mass] 30.3 pg Normal 27.0-32.0 [facility] Comment on above: Performed By: #### L 100.0100, L3890.6006, L509.8002, BTS, L509.4006, L3890.6301, L3890.6102 ####[facility] [address] [place], [address] MCHC (RBC) [Mass/Vol] 33.4 g/dL Normal 32-36 [facility] Comment on above: Performed By: #### L 100.0100, L3890.6006, L509.8002, BTS, L509.4006, L3890.6301, L3890.6102 ####[facility] [address] [place], [address] MCV (RBC) [Entitic vol] 90.8 fL Normal 81-99 [facility] Comment on above: Performed By: #### L 100.0100, L3890.6006, L509.8002, BTS, L509.4006, L3890.6301, L3890.6102 ####[facility] [address] [place], [address] Monocytes/100 WBC (Bld) 5.8 % Normal 0-10 [facility] Comment on above: Performed By: #### L 100.0100, L3890.6006, L509.8002, BTS, L509.4006, L3890.6301, L3890.6102 ####[facility] [address] [place], [address] Neutrophils/100 WBC (Bld) 71.4 % High 47-70 [facility] Comment on above: Performed By: #### L 100.0100, L3890.6006, L509.8002, BTS, L509.4006, L3890.6301, L3890.6102 ####[facility] [address] [place], [address] Nucleated RBC (Bld) [#/Vol] 0 10*3/uL Normal 0-5 [facility] Comment on above: Performed By: #### L 100.0100, L3890.6006, L509.8002, BTS, L509.4006, L3890.6301, L3890.6102 ####[facility] [address] [place], [address] Platelet mean volume (Bld) [Entitic vol] 10.1 fL Normal 6.2-12.0 [facility] Comment on above: Performed By: #### L 100.0100, L3890.6006, L509.8002, BTS, L509.4006, L3890.6301, L3890.6102 ####[facility] [address] [place], [address] Platelets (Bld) [#/Vol] 206 10*3/uL Normal 150-450 [facility] Comment on above: Performed By: #### L 100.0100, L3890.6006, L509.8002, BTS, L509.4006, L3890.6301, L3890.6102 ####[facility] [address] [place], [address] RBC (Bld) [#/Vol] 4.22 10*6/uL Normal 4.2-5.4 [facility] Comment on above: Performed By: #### L 100.0100, L3890.6006, L509.8002, BTS, L509.4006, L3890.6301, L3890.6102 ####[facility] [address] [place], [address] RDW SD 47.1 fl High 35.1-43.9 [facility] Comment on above: Performed By: #### L 100.0100, L3890.6006, L509.8002, BTS, L509.4006, L3890.6301, L3890.6102 ####[facility] [address] [place], [address] WBC (Bld) [#/Vol] 8.0 10*3/uL Normal 4.4-11.0 [facility] Comment on above: Performed By: #### L 100.0100, L3890.6006, L509.8002, BTS, L509.4006, L3890.6301, L3890.6102 ####[facility] [address] [place], [address] Eosinophil percentageOrdered By: Dorothy Lee on 11-05-2024 Eosinophils/100 WBC (Bld) 2.8 % 0-5 [facility] Erythrocyte distribution wid th ratioOrdered By: Dorothy Lee on 11-05-2024 Erythrocyte distribution width (RBC) [Ratio] 14.2 % 11.6-14.6 [facility] Erythrocyte distribution wid th standard deviationOrdered By: Dorothy Lee on 11-05-2024 Erythrocyte distribution width (RBC) [Ratio] 47.1 fl High 35.1-43.9 [facility] HIVon 11-05-2024 HIV Non-Reactive Normal Nonreactive [facility] Comment on above: Result Comment: Non- Reactive Reactive Repeatedly reactive samples must be confirmed according to CDC recommended confirmatory algorithms. The subresults for either HIVAG or AHIV can be used as an aid in the selection of the confirmation algorithm for reactive samples. Send out specimens with Reactive results to [facility] for confirmation. Order the HIV antibody detection and differentiation: #[id number] Performed By: #### L 100.0100, L3890.6006, L509.8002, BTS, L509.4006, L3890.6301, L3890.6102 ####[facility] [address] [place], [address] Hematocrit Auto (Bld) [Volum e fraction]Ordered By: Dorothy Lee on 11-05-2024 Hematocrit (Bld) [Volume fraction] 38.3 % 37-47 [facility] Hemoglobin measurementOrdere d By: Dorothy Lee on 11-05-2024 Hemoglobin (Bld) [Mass/Vol] 12.8 g/dL 12.0-15.0 [facility] Hepatitis C Antibodyon 11-05 Hepatitis C Ab Non-Reactive Normal Nonreactive [facility] Comment on above: Result Comment: Reac tive: Presumptive evidence of antibodies to HCV. Follow CDC recommendations for supplemental testing. Non-Reactive: Antibodies to HCV were not detected; does not exclude the possibility of exposure to HCV Reactive Results are presumptive evidence of antibodies to HCV. Follow CDC recommendations for supplemental testing. Order confirmation testing: HCV Quant by PCR testing - HCVPCR #[id number] Non Reactive: < 0.8 Equivocal: >/= 0.8 to < 1.0 Reactive: >/= 1.0 The [facility] requires that a reactive/equivocal HCV antibody result be sent out for confirmation. HCV Quant by PCR testing. Performed By: #### L 100.0100, L3890.6006, L509.8002, BTS, L509.4006, L3890.6301, L3890.6102 ####[facility] [address] [place], [place], [id number] Immature granulocytes/100 WB C Auto (Bld)Ordered By: Dorothy Lee on 11-05-2024 Immature granulocytes/100 WBC (Bld) 1.100 % High 0.0-0.9 [facility] Comment on above: IG% - Immature Granu locytes (promyelocytes, myelocytes and metamyelocytes) > 1% indicates that a LEFT SHIFT is Present. L3890.6102on 11-05-2024 HEP B Surf Ag Non-Reactive Normal Nonreactive [facility] Comment on above: Result Comment: Reac tive: Presumptive evidence of HBV. Repeatedly reactive samples must be confirmed using a neutralization test ([employer] HBsAg Confirmatory Test) Non-Reactive: HBsAg not detected; does not exclude the possibility of exposure to HBV Performed By: #### L 100.0100, L3890.6006, L509.8002, BTS, L509.4006, L3890.6301, L3890.6102 ####[facility] [address] [place], [place], [address] L509.4006on 11-05-2024 Rubella IgG REAC Normal Nonreactive [facility] Comment on above: Result Comment: Anti body Result: Interpretation Non-Reactive: Non-Immune Reactive: Immune The following results were obtained with the [employer] Rubella IgG assay. Results from assays of other manufacturers cannot be used interchangeably. Performed By: #### L 100.0100, L3890.6006, L509.8002, BTS, L509.4006, L3890.6301, L3890.6102 ####[facility] [address] [place], [address] Laboratory - Chemistry and C hemistry - challengeOrdered By: Rose Man on 11-05-2024 Glucose Ql (U) Negative [facility] Laboratory - Microbiology an d Antimicrobial susceptibilityOrdered By: Dorothy Lee on 11-05-2024 HBV surface Ag Ql (S) Non-Reactive Nonreactive [facility] Comment on above: Reactive: Presumptiv e evidence of HBV. Repeatedly reactive samples must be confirmed using a neutralization test ([employer] HBsAg Confirmatory Test)Non-Reactive: HBsAg not detected; does not exclude the possibility of exposure to HBV Laboratory - UrinalysisOrder ed By: Rose Man on 11-05-2024 Protein Ql (U) Negative [facility] MCV (mean corpuscular volume ) determinationOrdered By: Dorothy Lee on 11-05-2024 MCV (RBC) [Entitic vol] 90.8 fL 81-99 [facility] Mean corpuscular hemoglobin (MCH) determinationOrdered By: Dorothy Lee on 11-05-2024 MCH (RBC) [Entitic mass] 30.3 pg 27.0-32.0 [facility] Mean corpuscular hemoglobin concentration (MCHC) determinationOrdered By: Dorothy Lee on 11-05-2024 MCHC (RBC) [Mass/Vol] 33.4 g/dL 32-36 [facility] Mean platelet volume determi nationOrdered By: Dorothy Lee on 11-05-2024 Platelet mean volume (Bld) [Entitic vol] 10.1 fL 6.2-12.0 [facility] Monocyte percentageOrdered B y: Dorothy Lee on 11-05-2024 Monocytes/100 WBC (Bld) 5.8 % 0-10 [facility] Neutrophil percentageOrdered By: Dorothy Lee on 11-05-2024 Neutrophils/100 WBC (Bld) 71.4 % High 47-70 [facility] No Panel InformationOrdered By: Dorothy Lee on 11-05-2024 HIV (1&2) Antibody Non-Reactive Nonreactive [facility] Comment on above: Non-ReactiveReactive Repeatedly reactive samples must be confirmed according to CDC recommended confirmatory algorithms. The subresults for either HIVAG or AHIV can be used as an aid in the selection of the confirmation algorithm for reactive samples.Send out specimens with Reactive results to [facility] for confirmation.Order the HIV antibody detection and differentiation: #[id number] Nucleated red blood cell per centageOrdered By: Dorothy Lee on 11-05-2024 Nucleated RBC/100 WBC (Bld) [Ratio] 0 % 0-5 [facility] Rail Loader Office Visit Reporton 11-05-2024 Rail Loader Office Visit Report [facility] [address], [address] [place] [address] OFFICE VISIT Date of Service: 11/05/24 MR#: [id number] Acct: [id number] Name: MARTIN CASTELLANOS Rep #: [id number] : 1995 Provider: Dr. Rose Wolfe DO Age/Sex: 28/F Location: [facility] [place] Status: Signed Intake Vital Signs 08/27/24 13:56 09/29/24 10:27 11/05/24 08:41 11/05/24 08:44 Height 5 ft 4 in 5 ft 4 in 5 ft 4 in 5 ft 4 in Weight: 179 lb 2 oz BMI 30.7 BP 125/85 H Intake Visit Reasons: 14wk OB Shank Threader Required: No Is patient in pain?: No [...] 1 current occupational status: employed current occupation: [employer] pets and animals: Yes pets [...] times per week duration: 30-45 minutes/day juan alberto/caodaism: Holiness seatbelt use: always do you feel safe [...] - full term 8#3oz Female epidural [facility] audra Mobley Delivery Date: 02/05/22 Last [...] -???-???-???-???-???-? ??-???-???-??? (more content not included)... Normal [facility] Platelet countOrdered By: Karena Lee on 11-05-2024 Platelets (Bld) [#/Vol] 206 10*3/uL 150-450 [facility] RBC Auto (Bld) [#/Vol]Ordere d By: Dorothy Lee on 11-05-2024 RBC (Bld) [#/Vol] 4.22 10*6/uL 4.2-5.4 [facility] Syphilis Antibodieson 2024 Syphilis Abs Non-Reactive Normal Nonreactive [facility] Comment on above: Performed By: #### L 100.0100, L3890.6006, L509.8002, BTS, L509.4006, L3890.6301, L3890.6102 ####[facility] [address] [place], [place], [id number] Type AND Screenon 11-05-2024 ABO and Rh group Nom (Bld) Blood group A Rh(D) positive Normal [facility] Comment on above: Order Comment: PN Performed By: #### L 100.0100, L3890.6006, L509.8002, BTS, L509.4006, L3890.6301, L3890.6102 ####[facility] [address] [place], [place], [address] White blood cell (WBC) count Ordered By: Dorothy Lee on 11-05-2024 WBC (Bld) [#/Vol] 8.0 10*3/uL 4.4-11.0 [facility] Chlamydia/GC ZULEMA aptimaon CHLAMY,NUC ACID Negative Normal Negative [facility] Comment on above: Performed By: #### M 100.2200, L7000.1800 #### [facility] [address] [place], [address] GC BY NUC ACID Negative Normal Negative [facility] Comment on above: Result Comment: Perf ormed at: =G - [facility] [address] [id number] Pleating Supervisor: Shy Zelaya MD, Phone: [phone] Performed By: #### M 100.2200, L7000.1800 #### [facility] [address] [place], [address] Urine Cultureon 10-01-2024 URC Below infection leve l. Mixed Gram Positive Organisms [place] Count 1000-10,000 MIXC Mixed contaminants. Submit a new specimen if indicated. Normal [facility] Comment on above: Performed By: #### M 100.2200, L7000.1800 #### [facility] [address] [place], [address] C. trachomatis rRNA ZULEMA+prob e Ql (Unsp spec)Ordered By: Dorothy Lee on 09-29-2024 Chlamydia DNA (ZULEMA) Negative Negative [facility] Chlamydia trachomatis rRNA d etection by probe and target amplification methodOrdered By: Dorothy Lee on 09-29-2024 C. trachomatis rRNA ZULEMA+probe Ql (Unsp spec) Negative Negative [facility] Neisseria gonorrhoeae nuclei c acid detection by amplified probe techniqueOrdered By: Dorothy Lee on 09-29-2024 N. gonorrhoeae DNA ZULEMA+probe Ql (Unsp spec) Negative Negative [facility] Comment on above: Performed at: =G - [facility] [address] [id number] Director: Shy Zelaya MD, Phone: [phone] [facility] Office Visit Reporton 09-29-2024 Rail Loader Office Visit Report [facility]'s [address], [address] [place] [address] OFFICE VISIT Date of Service: 09/29/24 MR#: [id number] Acct: [id number] Name: MARTIN CASTELLANOS Rep #: [id number] : 1995 Provider: Dr. Dorothy fields MD Age/Sex: 28/F Location: [facility] Status: Signed Intake Vital Signs 04/28/24 11:18 08/27/24 13:56 09/29/24 10:27 Height 5 ft 4 in 5 ft 4 in 5 ft 4 in Weight: 171 lb 4 oz BMI 29.4 BP 129/78 H Intake Visit Reasons: New OB, LMP 07/23, ANJEL 04/29 Shank Threader Required: No Is patient in pain?: No [...] No current occupational status: employed current occupation: [employer] pets and animals: Yes pets [...] times per week duration: 30-45 minutes/day juan alberto/caodaism: Holiness seatbelt use: always do you feel safe [...] live - full term 8#3oz Female epidural [facility] Jesus Mobley Delivery Date: 02/05/22 Last Updated by: Ruthie Costello see problem list for complications, and 41 IOL postdates sm girl michael martha [facility] New OB, LMP 07/23, ANJEL 04/29 [...] Visit Note (more content not included)... Normal [facility] Urine cultureOrdered By: Pelon Lee on 09-29-2024 Bacteria identified Cx Nom (U) Positive Abnormal [facility] Hemoglobin A1Con 07-22-2024 Glucose [Mass/Vol] 103 mg/dL Normal [facility] Comment on above: Result Comment: The ADA and AACC recommend providing the estimated average glucose result to permit better patient understanding of their HBA1c result. Performed at [facility], [address] [place] [address] . HbA1c (Bld) [Mass fraction] 5.2 % Normal 4.0-6.0 [facility] Iron Binding Capon 5 % Fe Saturation 36 % Normal 20-55 [facility] Iron [Mass/Vol] 108 ug/dL Normal 37-145 [facility] Total Fe Binding Cap 303 ug/dL Normal 250-450 [facility] Fe Bind Cap 195 ug/dL Normal 112-347 [facility] Comment on above: Result Comment: Perf ormed at [facility], [address] [place] [address] . Vitamin D 25 OHon 07-22-2024 Vitamin D 25 OH 28.3 ng/mL Low 30.0-100.0 [facility] Comment on above: Result Comment: Reference Range: Vitamin D status Range Deficiency <20 ng/mL Mild Deficiency 20-30 ng/mL Sufficiency 30-100 ng/mL Toxicity >100 ng/mL Performed at [facility], [address] [place] [address] . CBC With Platelet and Differ entialon 07-21-2024 Basophils (Bld) [#/Vol] 0.0 10*3/uL Normal 0.0-0.2 [facility] Comment on above: Performed By: #### C BCWD #### [facility] [address] [place] [address] Basophils/100 WBC (Bld) 0.4 % Normal [facility] Comment on above: Performed By: #### C BCWD #### [facility] [address] [place] [address] Eosinophils (Bld) [#/Vol] 0.1 10*3/uL Normal 0.0-0.7 [facility] Comment on above: Performed By: #### C BCWD #### [facility] [address] [place] [address] Eosinophils/100 WBC (Bld) 1.6 % Normal [facility] Comment on above: Performed By: #### C BCWD #### [facility] [address] [place] [address] Erythrocyte distribution width (RBC) [Ratio] 12.8 % Normal 11.5-14.5 [facility] Comment on above: Performed By: #### C BCWD #### [facility] [address] [place] [address] Hematocrit (Bld) [Volume fraction] 42.8 % Normal 37.0-47.0 [facility] Comment on above: Performed By: #### C BCWD #### [facility] [address] [place] [address] Hemoglobin (Bld) [Mass/Vol] 14.1 g/dL Normal 12.0-16.0 [facility] Comment on above: Performed By: #### C BCWD #### [facility] [address] [place] [address] Lymphocytes (Bld) [#/Vol] 1.9 10*3/uL Normal 1.0-4.8 [facility] Comment on above: Performed By: #### C BCWD #### [facility] [address] [place] [address] Lymphocytes/100 WBC (Bld) 25.4 % Normal [facility] Comment on above: Performed By: #### C BCWD #### [facility] [address] [place] [address] MCH (RBC) [Entitic mass] 29.6 pg Normal 27.0-31.3 [facility] Comment on above: Performed By: #### C BCWD #### [facility] [address] [place] [address] MCHC 32.9 % Low 33.0-37.0 [facility] Comment on above: Performed By: #### C BCWD #### [facility] [address] [place] [address] MCV (RBC) [Entitic vol] 89.9 fL Normal 79.4-94.8 [facility] Comment on above: Performed By: #### C BCWD #### [facility] [address] [place] [address] Monocytes (Bld) [#/Vol] 0.4 10*3/uL Normal 0.2-0.8 [facility] Comment on above: Performed By: #### C BCWD #### [facility] [address] [place] [address] Monocytes/100 WBC (Bld) 5.6 % Normal [facility] Comment on above: Performed By: #### C BCWD #### [facility] [address] [place] [address] Neutrophils (Bld) [#/Vol] 4.9 10*3/uL Normal 1.4-6.5 [facility] Comment on above: Performed By: #### C BCWD #### [facility] [address] [place] [address] Neutrophils/100 WBC (Bld) 66.1 % Normal [facility] Comment on above: Performed By: #### C BCWD #### [facility] [address] [place] [address] Platelets (Bld) [#/Vol] 234 10*3/uL Normal 130-400 [facility] Comment on above: Performed By: #### C BCWD #### [facility] [address] [place] [address] RBC (Bld) [#/Vol] 4.76 10*6/uL Normal 4.20-5.40 [facility] Comment on above: Performed By: #### C BCWD #### [facility] [address] [place] [address] WBC (Bld) [#/Vol] 7.4 10*3/uL Normal 4.8-10.8 [facility] Comment on above: Performed By: #### C BCWD #### [facility] [address] [place] [address] Comprehensive Metabolic Pane j carlos 07-21-2024 Albumin [Mass/Vol] 4.4 g/dL Normal 3.5-4.6 [facility] Comment on above: Performed By: #### C MP #### [facility] [address] [place] [address] ALP [Catalytic activity/Vol] 66 U/L Normal 40-130 [facility] Comment on above: Performed By: #### C MP #### [facility] [address] [place] [address] ALT [Catalytic activity/Vol] 31 U/L Normal 0-33 [facility] Comment on above: Performed By: #### C MP #### [facility] [address] [place] [address] Anion gap [Moles/Vol] 12 mmol/L Normal 9-15 [facility] Comment on above: Performed By: #### C MP #### [facility] [address] [place] [address] AST [Catalytic activity/Vol] 21 U/L Normal 0-35 [facility] Comment on above: Performed By: #### C MP #### [facility] [address] [place] [address] Bilirubin [Mass/Vol] 0.3 mg/dL Normal 0.2-0.7 [facility] Comment on above: Performed By: #### C MP #### [facility] [address] [place] [address] Calcium [Mass/Vol] 9.2 mg/dL Normal 8.5-9.9 [facility] Comment on above: Performed By: #### C MP #### [facility] [address] [place] [address] Chloride [Moles/Vol] 101 mmol/L Normal 95-107 [facility] Comment on above: Performed By: #### C MP #### [facility] [address] [place] [address] CO2 [Moles/Vol] 25 mmol/L Normal 20-31 [facility] Comment on above: Performed By: #### C MP #### [facility] [address] [place] [address] Creatinine [Mass/Vol] 0.74 mg/dL Normal 0.50-0.90 [facility] Comment on above: Performed By: #### C MP #### [facility] [address] [place] [address] GFR >90.0 Normal >60 [facility] Comment on above: Result Comment: [facility] at[facility] [...] secretion. Performed By: #### C MP #### [facility] [address] [place] [address] Globulin (S) [Mass/Vol] 3.4 g/dL Normal 2.3-3.5 [facility] Comment on above: Performed By: #### C MP #### [facility] [address] [place] [address] Glucose [Mass/Vol] 76 mg/dL Normal 70-99 [facility] Comment on above: Performed By: #### C MP #### [facility] [address] [place] [address] Potassium [Moles/Vol] 4.0 mmol/L Normal 3.4-4.9 [facility] Comment on above: Performed By: #### C MP #### [facility] [address] [place] [address] Protein [Mass/Vol] 7.8 g/dL Normal 6.3-8.0 [facility] Comment on above: Performed By: #### C MP #### [facility] [address] [place] [address] Sodium [Moles/Vol] 138 mmol/L Normal 135-144 [facility] Comment on above: Performed By: #### C MP #### [facility] [address] [place] [address] Urea nitrogen [Mass/Vol] 8 mg/dL Normal 6-20 [facility] Comment on above: Performed By: #### C MP #### [facility] [address] [place] [address] Lipid Panel Fastingon 2024 Cholesterol [Mass/Vol] 213 mg/dL Critically high 0-199 [facility] Comment on above: Result Comment: ATP III Cholesterol Classification is Borderline High. Performed By: #### L IPDF #### [facility] [address] [place] [address] HDL Cholesterol Fasting 64 mg/dL Critically high 40-59 [facility] Comment on above: Result Comment: ATP III [...] CHD Performed By: #### L IPDF #### [facility] [address] [place] [address] LDL Cholesterol (Calculated) Fasting 137 mg/dL Critically high 0-129 [facility] Comment on above: Result Comment: ATT III Classification is Borderline High. Performed By: #### L IPDF #### [facility] [address] [place] [address] Triglycerides Fasting 60 mg/dL Normal 0-150 [facility] Comment on above: Result Comment: ATP III Triglycerides Classification is Normal. Performed By: #### L IPDF #### [facility] [address] [place] [address] TSH w/Reflexon 07-21-2024 TSH w/Reflex 2.260 uIU/mL Normal 0.440-3.86 [facility] Comment on above: Result Comment: Free T4 will automatically reflex with a TSH result of <0.270 or >4.200 Performed By: #### T SHR #### [facility] [address] [place] [address] PAP I-G w/rfx hrHPV-Aptimaon 05-05-2024 ADEQ Comment Normal . [facility] Comment on above: Order Comment: Speci men Comment: [id number] Specimen Comment: Source.............Cervix Specimen Comment: LMP / Prev Treat...[id number] Specimen Comment: No. of containers..01 ThinPrep Vial Result Comment: Sati sfactory for evaluation. Endocervical and/or squamous metaplastic cells (endocervical component) are present. Performed By: #### L 7400.0353 #### [facility] [address] [place], [place], [id number] COMM . Normal . [facility] Comment on above: Order Comment: Speci men Comment: [id number] Specimen Comment: Source.............Cervix Specimen Comment: LMP / Prev Treat...[id number] Specimen Comment: No. of containers..01 ThinPrep Vial Performed By: #### L 7400.0353 #### [facility] [address] [place], [place], [id number] COMMENT Comment Normal . [facility] Comment on above: Order Comment: Speci men Comment: [id number] Specimen Comment: Source.............Cervix Specimen Comment: LMP / Prev Treat...[id number] Specimen Comment: No. of containers..01 ThinPrep Vial Result Comment: This liquid based ThinPrep(R) pap test was screened with the use of an image guided system. Performed By: #### L 7400.0353 #### [facility] [address] [place], [place], [id number] DIAG Comment Normal . [facility] Comment on above: Order Comment: Speci men Comment: [id number] Specimen Comment: Source.............Cervix Specimen Comment: LMP / Prev Treat...[id number] Specimen Comment: No. of containers..01 ThinPrep Vial Result Comment: NEGA TIVE FOR INTRAEPITHELIAL LESION OR MALIGNANCY. Performed By: #### L 7400.0353 #### [facility] [address] [place], [address] HPV RFLX Comment Normal . [facility] Comment on above: Order Comment: Speci men Comment: [id number] Specimen Comment: Source.............Cervix Specimen Comment: LMP / Prev Treat...[id number] Specimen Comment: No. of containers..01 ThinPrep Vial Result Comment: The HPV DNA reflex criteria were not met with this specimen result therefore, no HPV testing was performed. Performed at: [address] [id number] Pleating Supervisor: Shy Zelaya MD, Phone: [phone] Performed By: #### L 7400.0353 #### [facility] [address] [place], [address] PAPSMR Comment Normal . [facility] Comment on above: Order Comment: Speci men Comment: [id number] Specimen Comment: Source.............Cervix Specimen Comment: LMP / Prev Treat...[id number] Specimen Comment: No. of containers..01 ThinPrep Vial Result Comment: The Pap smear is a screening test designed to aid in the detection of premalignant and malignant conditions of the uterine cervix. It is not a diagnostic procedure and should not be used as the sole means of detecting cervical cancer. Both false-positive and false-negative reports do occur. Performed By: #### L 7400.0353 #### [facility] [address] [place], [address] PERFORM Comment Normal . [facility] Comment on above: Order Comment: Speci men Comment: [id number] Specimen Comment: Source.............Cervix Specimen Comment: LMP / Prev Treat...[id number] Specimen Comment: No. of containers..01 ThinPrep Vial Result Comment: Pura Marinelli, [employer] Worker (ASCP) Performed By: #### L 7400.0353 #### [facility] [address] [place], [address] Rail Loader Office Visit Reporton 04-28-2024 Rail Loader Office Visit Report [facility]'s [address], [address] [place] [address] OFFICE VISIT Date of Service: 04/28/24 MR#: [id number] Acct: [id number] Name: MARTIN CASTELLANOS Rep #: [id number] : 1995 Provider: LUCINDA rodriguez Age/Sex: 28/F Location: [facility] Status: Signed Intake Vital Signs 04/13/23 10:59 04/28/24 11:14 04/28/24 11:18 Height 5 ft 4 in 5 ft 4 in 5 ft 4 in Weight: 159 lb 6 oz BMI 27.3 BP 118/76 Intake 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 Denies concerns. Moving to [place] soon. Needs refill zoloft and altavera. Last [...] oriented to person and oriented to place [facility] Head: normal to inspection Neck Neck: [...] - Vagina (more content not included)... Normal [facility] Absolute lymphocyte counton 02-04-2022 Lymphocytes Auto (Unsp spec) [#/Vol] 1.29 10*3/uL 0.83-4.51 [facility] Work Phone: Basophil percentageon 2021 Basophils/100 WBC (Bld) 0.4 % 0-1 [facility] Work Phone: Eosinophils/100 WBC (Bld) 1.5 % 0-5 [facility] Work Phone: Neutrophils (Bld) [#/Vol] 5.0 10*3/uL 2.0-7.7 [facility] Work Phone: Neutrophils/100 WBC (Bld) 70.1 % 47-70 [facility] Work Phone: WBC (Bld) [#/Vol] 7.2 10*3/uL 4.4-11.0 [facility] Work Phone: Blood erythrocytes count (nu mber/volume)on 02-04-2022 RBC (Bld) [#/Vol] 4.09 10*6/uL 4.2-5.4 [facility] Work Phone: Blood hemoglobin measurement (mass/volume)on 02-04-2022 Hemoglobin (Bld) [Mass/Vol] 11.4 g/dL 12.0-15.0 [facility] Work Phone: Blood lymphocytes/100 leukoc yteson 02-04-2022 Lymphocytes/100 WBC (Bld) 18.0 % 19-41 [facility] Work Phone: Blood monocytes/100 leukocyt eson 02-04-2022 Monocytes/100 WBC (Bld) 8.7 % 0-10 [facility] Work Phone: Blood platelet mean volumeon 02-04-2022 Platelet mean volume (Bld) [Entitic vol] 10.9 fL 6.2-12.0 [facility] Work Phone: Determination of erythrocyte mean corpuscular volume (MCV)on 02-04-2022 MCV (RBC) [Entitic vol] 87.3 fL 81-99 [facility] Work Phone: Hematocrit Auto (Bld) [Volum e fraction]on 02-04-2022 Hematocrit (Bld) [Volume fraction] 35.7 % 37-47 [facility] Work Phone: Laboratory - Hematology and Cell countson 02-04-2022 Anisocytosis Ql (Bld) 1+ [facility] Work Phone: Erythrocyte distribution width (RBC) [Entitic vol] 63.8 fL 35.1-43.9 [facility] Work Phone: Erythrocyte distribution width (RBC) [Ratio] 20.4 % 11.6-14.6 [facility] Work Phone: Immature granulocytes/100 WBC (Bld) 1.300 % 0.0-0.9 [facility] Work Phone: Comment on above: IG% - Immature Granu locytes (promyelocytes, myelocytes and metamyelocytes) > 1% indicates that a LEFT SHIFT is Present. MCH (RBC) [Entitic mass] 27.9 pg 27.0-32.0 [facility] Work Phone: Nucleated RBC/100 WBC (Bld) [Ratio] 0 % 0-5 [facility] Work Phone: MCHC Auto (RBC) [Mass/Vol]on 02-04-2022 MCHC (RBC) [Mass/Vol] 31.9 g/dL 32-36 [facility] Work Phone: Platelets bldon 02-04-2022 Platelets (Bld) [#/Vol] 152 10*3/uL 150-450 [facility] Work Phone: Laboratory - Chemistry and C hemistry - challengeon 01-27-2022 Glucose Ql (U) Negative [facility] Work Phone: Laboratory - Urinalysison Protein Ql (U) Negative [facility] Work Phone: Laboratory - Chemistry and C hemistry - challengeon 01-17-2022 Glucose Ql (U) Negative [facility] Work Phone: Laboratory - Urinalysison Protein Ql (U) Negative [facility] Work Phone: Laboratory - Chemistry and C hemistry - challengeon 01-11-2022 Glucose Ql (U) Negative [facility] Work Phone: Laboratory - Urinalysison Protein Ql (U) Negative [facility] Work Phone: Laboratory - Chemistry and C hemistry - challengeon 12-20-2021 Glucose Ql (U) Negative [facility] Work Phone: Laboratory - Urinalysison Protein Ql (U) Negative [facility] Work Phone: Absolute lymphocyte counton 12-14-2021 Lymphocytes Auto (Unsp spec) [#/Vol] 1.41 10*3/uL 0.83-4.51 [facility] Work Phone: Basophil percentageon 2021 Basophil percentage 0 SEEN /hpf 0-5 [facility] Work Phone: Basophils/100 WBC (Bld) 0.3 % 0-1 [facility] Work Phone: Bilirubin [Mass/Vol] 0.20 mg/dL 0.20-1.00 [facility] Work Phone: Comment on above: For patients on eltr ombopag therapy, use of Dimension [place] TBIL is not recommended. Chloride [Moles/Vol] 108 mmol/L 98-107 [facility] Work Phone: Eosinophils/100 WBC (Bld) 0.5 % 0-5 [facility] Work Phone: Glucose [Mass/Vol] 81 mg/dL 74-106 [facility] Work Phone: Neutrophils (Bld) [#/Vol] 7.0 10*3/uL 2.0-7.7 [facility] Work Phone: Neutrophils/100 WBC (Bld) 75.7 % 47-70 [facility] Work Phone: Potassium [Moles/Vol] 3.7 mmol/L 3.5-5.1 [facility] Work Phone: Protein [Mass/Vol] 6.9 g/dL 6.4-8.2 [facility] Work Phone: Sodium [Moles/Vol] 138 mmol/L 136-145 [facility] Work Phone: WBC (Bld) [#/Vol] 9.2 10*3/uL 4.4-11.0 [facility] Work Phone: Bilirubin Test strip Ql (U)o n 12-14-2021 Bilirubin Ql (U) Negative Negative [facility] Work Phone: Blood erythrocytes count (nu mber/volume)on 12-14-2021 RBC (Bld) [#/Vol] 3.70 10*6/uL 4.2-5.4 [facility] Work Phone: Blood hemoglobin measurement (mass/volume)on 12-14-2021 Hemoglobin (Bld) [Mass/Vol] 10.5 g/dL 12.0-15.0 [facility] Work Phone: Blood lymphocytes/100 leukoc yteson 12-14-2021 Lymphocytes/100 WBC (Bld) 15.3 % 19-41 [facility] Work Phone: Blood monocytes/100 leukocyt eson 12-14-2021 Monocytes/100 WBC (Bld) 6.1 % 0-10 [facility] Work Phone: Blood platelet mean volumeon 12-14-2021 Platelet mean volume (Bld) [Entitic vol] 10.2 fL 6.2-12.0 [facility] Work Phone: Determination of erythrocyte mean corpuscular volume (MCV)on 12-14-2021 MCV (RBC) [Entitic vol] 87.3 fL 81-99 [facility] Work Phone: Hematocrit Auto (Bld) [Volum e fraction]on 12-14-2021 Hematocrit (Bld) [Volume fraction] 32.3 % 37-47 [facility] Work Phone: Ketones Test strip Ql (U)on 12-14-2021 Ketones Ql (U) 50 mg/dl Negative [facility] Work Phone: Laboratory - Chemistry and C hemistry - challengeon 12-14-2021 ALP [Catalytic activity/Vol] 69 U/L 45-117 [facility] Work Phone: ALT [Catalytic activity/Vol] 38 U/L 13-56 [facility] Work Phone: CO2 [Moles/Vol] 24.0 mmol/L 21.0-32.0 [facility] Work Phone: Globulin (S) [Mass/Vol] 4.0 g/dL 2.2-4.2 [facility] Work Phone: Urea nitrogen/Creatinine [Mass ratio] 14.2 mg/mg 10-20 [facility] Work Phone: Laboratory - Hematology and Cell countson 12-14-2021 Erythrocyte distribution width (RBC) [Entitic vol] 41.1 fL 35.1-43.9 [facility] Work Phone: Erythrocyte distribution width (RBC) [Ratio] 13.1 % 11.6-14.6 [facility] Work Phone: Immature granulocytes/100 WBC (Bld) 2.100 % 0.0-0.9 [facility] Work Phone: Comment on above: IG% - Immature Granu locytes (promyelocytes, myelocytes and metamyelocytes) > 1% indicates that a LEFT SHIFT is Present. MCH (RBC) [Entitic mass] 28.4 pg 27.0-32.0 [facility] Work Phone: Nucleated RBC/100 WBC (Bld) [Ratio] 0 % 0-5 [facility] Work Phone: MCHC Auto (RBC) [Mass/Vol]on 12-14-2021 MCHC (RBC) [Mass/Vol] 32.5 g/dL 32-36 [facility] Work Phone: Mucus LM Ql (Urine sed)on Mucus Ql (Urine sed) 0 SEEN /hpf [facility] Work Phone: Nitrite Test strip Ql (U)on 12-14-2021 Nitrite Ql (U) Negative Negative [facility] Work Phone: No Panel Informationon 12-14 Estimated Creatinine Clearance Calc 116.85 ml/min [facility] Work Phone: Estimated GFR (MDRD) Amer 146 mL/min >60 [facility] Work Phone: Comment on above: GFR Calc Estimated GFR (MDRD) Non-Af Amer 121 mL/min >60 [facility] Work Phone: Comment on above: Non- GFR Calc Thyroid Stimulating Hormone (TSH) 2.74 uIU/mL 0.358-3.74 [facility] Work Phone: Platelets bldon 12-14-2021 Platelets (Bld) [#/Vol] 189 10*3/uL 150-450 [facility] Work Phone: Protein Test strip Ql (U)on 12-14-2021 Protein Ql (U) Negative Negative [facility] Work Phone: Serum or plasma albumin tommy urement (mass/volume)on 12-14-2021 Albumin [Mass/Vol] 2.9 g/dL 3.2-5.0 [facility] Work Phone: Serum or plasma albumin/glob ulin mass ratioon 12-14-2021 Albumin/Globulin [Mass ratio] 0.7 {ratio} 0.9-2.4 [facility] Work Phone: Serum or plasma calcium tommy urement (mass/volume)on 12-14-2021 Calcium [Mass/Vol] 9.0 mg/dL 8.5-10.1 [facility] Work Phone: Serum or plasma creatinine m easurement (mass/volume)on 12-14-2021 Creatinine [Mass/Vol] 0.63 mg/dL 0.55-1.02 [facility] Work Phone: Comment on above: The validity of the calculated GFR & GFRAA in patients over 70 years has not been determined. Clinical correlation is essential. Serum or plasma urea nitroge n measurement (mass/volume)on 12-14-2021 Urea nitrogen [Mass/Vol] 9 mg/dL 7-18 [facility] Work Phone: Squamous epithelial cells de tection in urine sediment by light microscopyon 12-14-2021 Epithelial cells.squamous LM Ql (Urine sed) 0 SEEN /hpf 5-10 [facility] Work Phone: Thin prep Papanicolaou smear with manual screeningon 12-14-2021 Thin prep Papanicolaou smear with manual screening 29 U/L 15-37 [facility] Work Phone: Thin prep Papanicolaou smear with manual screening 6 5-15 [facility] Work Phone: Urine blood detectionon 07-0 RBC Ql (U) Negative Negative [facility] Work Phone: RBC Ql (U) 0 SEEN /hpf 0-5 [facility] Work Phone: Urine clarityon 12-14-2021 Clarity (U) Clear Clear [facility] Work Phone: Urine color determinationon 12-14-2021 Color (U) Yellow Yellow [facility] Work Phone: Urine glucose detectionon Glucose Ql (U) Normal mg/dl Normal [facility] Work Phone: Urine leukocyte esterase det ection by dipstickon 12-14-2021 Leukocyte esterase Test strip Ql (U) Negative Negative [facility] Work Phone: Urine pHon 12-14-2021 pH (U) 6.5 [pH] 5.0 - 8.0 [facility] Work Phone: Urine sediment bacteria coun t by microscopy (number/high power field)on 12-14-2021 Bacteria LM.HPF (Urine sed) [#/Area] 0 /[HPF] None Seen [facility] Work Phone: Urine specific gravity measu rementon 12-14-2021 Specific gravity (U) [Rel density] 1.010 1.002-1.030 [facility] Work Phone: Urobilinogen Auto test strip Ql (U)on 12-14-2021 Urobilinogen Ql (U) Normal mg/dl Normal [facility] Work Phone: Laboratory - Chemistry and C hemistry - challengeon 12-08-2021 Glucose Ql (U) Negative [facility] Work Phone: Laboratory - Urinalysison Protein Ql (U) Negative [facility] Work Phone: Laboratory - Chemistry and C hemistry - challengeon 11-25-2021 Glucose Ql (U) Negative [facility] Work Phone: Laboratory - Urinalysison Protein Ql (U) Negative [facility] Work Phone: Laboratory - Chemistry and C hemistry - challengeon 11-08-2021 Glucose Ql (U) Negative [facility] Work Phone: Laboratory - Urinalysison Protein Ql (U) Negative [facility] Work Phone: Absolute lymphocyte counton 10-26-2021 Lymphocytes Auto (Unsp spec) [#/Vol] 1.42 10*3/uL 0.83-4.51 [facility] Work Phone: Basophil percentageon 2021 Basophils/100 WBC (Bld) 0.7 % 0-1 [facility] Work Phone: Eosinophils/100 WBC (Bld) 1.9 % 0-5 [facility] Work Phone: Neutrophils (Bld) [#/Vol] 5.0 10*3/uL 2.0-7.7 [facility] Work Phone: Neutrophils/100 WBC (Bld) 66.6 % 47-70 [facility] Work Phone: WBC (Bld) [#/Vol] 7.6 10*3/uL 4.4-11.0 [facility] Work Phone: Blood erythrocytes count (nu mber/volume)on 10-26-2021 RBC (Bld) [#/Vol] 3.73 10*6/uL 4.2-5.4 [facility] Work Phone: Blood hemoglobin measurement (mass/volume)on 10-26-2021 Hemoglobin (Bld) [Mass/Vol] 11.4 g/dL 12.0-15.0 [facility] Work Phone: Blood lymphocytes/100 leukoc yteson 10-26-2021 Lymphocytes/100 WBC (Bld) 18.8 % 19-41 [facility] Work Phone: Blood monocytes/100 leukocyt eson 10-26-2021 Monocytes/100 WBC (Bld) 8.2 % 0-10 [facility] Work Phone: Blood platelet mean volumeon 10-26-2021 Platelet mean volume (Bld) [Entitic vol] 9.5 fL 6.2-12.0 [facility] Work Phone: Determination of erythrocyte mean corpuscular volume (MCV)on 10-26-2021 MCV (RBC) [Entitic vol] 93.8 fL 81-99 [facility] Work Phone: Gestational diabetes screen 1-hour screen with 50g oral glucose loadon 10-26-2021 Glucose 1 Hr post 50 g glucose PO [Mass/Vol] 96 mg/dL 70-140 [facility] Work Phone: Hematocrit Auto (Bld) [Volum e fraction]on 10-26-2021 Hematocrit (Bld) [Volume fraction] 35.0 % 37-47 [facility] Work Phone: Laboratory - Chemistry and C hemistry - challengeon 10-26-2021 Glucose Ql (U) Negative [facility] Work Phone: Laboratory - Hematology and Cell countson 10-26-2021 Erythrocyte distribution width (RBC) [Entitic vol] 44.0 fL 35.1-43.9 [facility] Work Phone: Erythrocyte distribution width (RBC) [Ratio] 12.7 % 11.6-14.6 [facility] Work Phone: Immature granulocytes/100 WBC (Bld) 3.800 % 0.0-0.9 [facility] Work Phone: Comment on above: IG% - Immature Granu locytes (promyelocytes, myelocytes and metamyelocytes) > 1% indicates that a LEFT SHIFT is Present. MCH (RBC) [Entitic mass] 30.6 pg 27.0-32.0 [facility] Work Phone: Nucleated RBC/100 WBC (Bld) [Ratio] 0 % 0-5 [facility] Work Phone: Laboratory - Urinalysison Protein Ql (U) Negative [facility] Work Phone: MCHC Auto (RBC) [Mass/Vol]on 10-26-2021 MCHC (RBC) [Mass/Vol] 32.6 g/dL 32-36 [facility] Work Phone: Platelets bldon 10-26-2021 Platelets (Bld) [#/Vol] 211 10*3/uL 150-450 [facility] Work Phone: Laboratory - Chemistry and C hemistry - challengeon 09-23-2021 Glucose Ql (U) Negative [facility] Work Phone: Laboratory - Urinalysison Protein Ql (U) Negative [facility] Work Phone: Laboratory - Chemistry and C hemistry - challengeon 08-23-2021 Glucose Ql (U) Negative [facility] Work Phone: Laboratory - Urinalysison Protein Ql (U) Negative [facility] Work Phone: Laboratory - Chemistry and C hemistry - challengeon 07-26-2021 Glucose Ql (U) Negative [facility] Work Phone: Laboratory - Urinalysison Protein Ql (U) Negative [facility] Work Phone: Absolute lymphocyte counton 06-30-2021 Lymphocytes Auto (Unsp spec) [#/Vol] 1.37 10*3/uL 0.83-4.51 [facility] Work Phone: Basophil percentageon 2021 Basophils/100 WBC (Bld) 0.4 % 0-1 [facility] Work Phone: Eosinophils/100 WBC (Bld) 0.5 % 0-5 [facility] Work Phone: Neutrophils (Bld) [#/Vol] 5.9 10*3/uL 2.0-7.7 [facility] Work Phone: Neutrophils/100 WBC (Bld) 74.2 % 47-70 [facility] Work Phone: WBC (Bld) [#/Vol] 8.0 10*3/uL 4.4-11.0 [facility] Work Phone: Blood erythrocytes count (nu mber/volume)on 06-30-2021 RBC (Bld) [#/Vol] 4.25 10*6/uL 4.2-5.4 [facility] Work Phone: Blood hemoglobin measurement (mass/volume)on 06-30-2021 Hemoglobin (Bld) [Mass/Vol] 12.8 g/dL 12.0-15.0 [facility] Work Phone: Blood lymphocytes/100 leukoc yteson 06-30-2021 Lymphocytes/100 WBC (Bld) 17.2 % 19-41 [facility] Work Phone: Blood monocytes/100 leukocyt eson 06-30-2021 Monocytes/100 WBC (Bld) 7.2 % 0-10 [facility] Work Phone: Blood platelet mean volumeon 06-30-2021 Platelet mean volume (Bld) [Entitic vol] 9.8 fL 6.2-12.0 [facility] Work Phone: Chlamydia trachomatis rRNA d etection by probe and target amplification methodon 06-30-2021 C. trachomatis rRNA ZULEMA+probe Ql (Unsp spec) Negative Negative [facility] Work Phone: Culture, urineon 06-30-2021 Bacteria identified Cx Nom (U) Culture exhibits no growth. [facility] Work Phone: Determination of erythrocyte mean corpuscular volume (MCV)on 06-30-2021 MCV (RBC) [Entitic vol] 89.4 fL 81-99 [facility] Work Phone: HIV 1 and HIV-2 antibody ass ay with HIV-1 p24 antigen detectionon 06-30-2021 HIV 1+2 Ab+HIV1 p24 Ag IA Ql Non-Reactive Nonreactive [facility] Work Phone: Hematocrit Auto (Bld) [Volum e fraction]on 06-30-2021 Hematocrit (Bld) [Volume fraction] 38.0 % 37-47 [facility] Work Phone: Laboratory - Drug toxicology on 06-30-2021 Amphetamines Ql (U) Negative [facility] Work Phone: Benzodiazepines Ql (U) Negative [facility] Work Phone: Cannabinoids Screen Ql (U) Negative [facility] Work Phone: Cocaine Ql (U) Negative [facility] Work Phone: Opiates Ql (U) Negative [facility] Work Phone: Laboratory - Hematology and Cell countson 06-30-2021 Erythrocyte distribution width (RBC) [Entitic vol] 42.3 fL 35.1-43.9 [facility] Work Phone: Erythrocyte distribution width (RBC) [Ratio] 12.8 % 11.6-14.6 [facility] Work Phone: Immature granulocytes/100 WBC (Bld) 0.500 % 0.0-0.9 [facility] Work Phone: Comment on above: IG% - Immature Granu locytes (promyelocytes, myelocytes and metamyelocytes) > 1% indicates that a LEFT SHIFT is Present. MCH (RBC) [Entitic mass] 30.1 pg 27.0-32.0 [facility] Work Phone: Nucleated RBC/100 WBC (Bld) [Ratio] 0 % 0-5 [facility] Work Phone: Laboratory - Microbiology an d Antimicrobial susceptibilityon 06-30-2021 N. gonorrhoeae DNA ZULEMA+probe Ql (Unsp spec) Negative Negative [facility] Work Phone: Comment on above: Performed at: =[facility] [address] [id number] Director: Shy Zelaya MD, Phone: [phone] MCHC Auto (RBC) [Mass/Vol]on 06-30-2021 MCHC (RBC) [Mass/Vol] 33.7 g/dL 32-36 [facility] Work Phone: No Panel Informationon 06-30 Urine Barbiturates Screen Negative [facility] Work Phone: Urine Drug Screen Comment [facility] Work Phone: Comment on above: CONFIRMATORY [...] USE TESTMNEMONIC: [facility] Urine Methadone Screen Negative [facility] Work Phone: Urine Methamphetamine-MDMA Screen Negative [facility] Work Phone: Hepatitis B Surface Antigen Non-Reactive Nonreactive [facility] Work Phone: Hepatitis C Antibody Non-Reactive Nonreactive [facility] Work Phone: Comment on above: Non Reactive: < 0.8 Equivocal: >/= 0.8 to < 1.0 Reactive: >/= 1.0The CDC recommends that a reactive/equivocal HCV antibody result be followed up by the HCV Nucleic Acid Amplificationtest (201523) Rubella IgG Antibody Reactive Nonreactive [facility] Work Phone: Comment on above: Antibody Results Int erpretation of Immune Status Non Reactive Presumed Non-Immune Equivocal Equivocal Reactive Presumed Immune Platelets bldon 06-30-2021 Platelets (Bld) [#/Vol] 194 10*3/uL 150-450 [facility] Work Phone: Serum Treponema species anti body detectionon 06-30-2021 Treponema sp Ab Ql (S) Non-Reactive [facility] Work Phone: Urine phencyclidine (PCP) de tectionon 06-30-2021 Phencyclidine Ql (U) Negative [facility] Work Phone: COVID-19 Antigenon 1 COVID-19 Antigen [...] its performance Subhash Disclaimer characteristic determined by [employer] and Subhash Disclaimer validated at [facility]. This Subhash Disclaimer test has [...] is terminated or revoked sooner. PERFORMED BY: [place] [address] PATHOLOGIST PICK UP WORKER JORDON BOWDEN M.D. Normal [facility] Comment on above: Performed By: #### S OFKARLIEG, COVID-19 SUBHASH #### [facility] [address] [place] [address] Subhash Ag Negativeon 03-11-20 21 Subhash Ag Negative Negative Normal Negative [facility] Comment on above: Result Comment: This is a duplicate Subhash SARS Antigen (BRYSON) result to be used for statistical tracking purpose only. PERFORMED BY: [place] [address] PATHOLOGIST PICK UP WORKER JORDON BOWDEN M.D. Performed By: #### S OFIANEG, COVID-19 SUBHASH #### [facility] [address] [place], [place] [id number] [facility] Comprehensive Metabolic Empo n 02-09-2021 Albumin [Mass/Vol] 4.3 g/dL Normal 3.2-5.5 [facility] Comment on above: Performed By: #### E BS CMP, LIPID #### [facility] [address] Albumin/Globulin [Mass ratio] 1.5 {ratio} Normal [facility] Comment on above: Performed By: #### E BS CMP, LIPID #### [facility] [address] ALP [Catalytic activity/Vol] 39 U/L Normal 32-92 [facility] Comment on above: Performed By: #### E BS CMP, LIPID #### [facility] [address] ALT [Catalytic activity/Vol] 12 U/L Normal 10-60 [facility] Comment on above: Performed By: #### E BS CMP, LIPID #### [facility] [address] [place] [address] AST [Catalytic activity/Vol] 15 U/L Normal 10-42 [facility] Comment on above: Performed By: #### E BS CMP, LIPID #### [facility] [address] [place] [address] Bilirubin [Mass/Vol] 0.5 mg/dL Normal 0.3-1.2 [facility] Comment on above: Performed By: #### E BS CMP, LIPID #### [facility] [address] [place] [address] [place] Calcium [Mass/Vol] 9.5 mg/dL Normal 8.2-10.2 [facility] Comment on above: Performed By: #### E BS CMP, LIPID #### [facility] [address] [place] [address] [place] Chloride [Moles/Vol] 102 mmol/L Normal 95-114 [facility] Comment on above: Performed By: #### E BS CMP, LIPID #### [facility] [address] [place] [address] CO2 [Moles/Vol] 23.8 mmol/L Normal 22.0-30.0 [facility] Comment on above: Performed By: #### E BS CMP, LIPID #### [facility] [address] Creatinine [Mass/Vol] 0.83 mg/dL Normal 0.44-1.03 [facility] Comment on above: Performed By: #### E BS CMP, LIPID #### [facility] [address] Estimated GFR ( Radha > 60 Normal [facility] Comment on above: Result Comment: GFR estimated reference range: According to KDOQI guidelines, <60 ml/min/1.73m2 is sufficient to diagnose a patient with chronic kidney disease. Performed By: #### E BS CMP, LIPID #### [facility] [address] Estimated GFR (Non- Am > 60 Normal [facility] Comment on above: Performed By: #### E BS CMP, LIPID #### [facility] [address] Globulin (S) [Mass/Vol] 2.9 g/dL Normal [facility] Comment on above: Performed By: #### E BS CMP, LIPID #### [address] Glucose [Mass/Vol] 77 mg/dL Normal 70-100 [facility] Comment on above: Performed By: #### E BS CMP, LIPID #### [facility] [address] [place] [address] [place] Potassium [Moles/Vol] 3.4 mmol/L Low 3.5-5.1 [facility] Comment on above: Performed By: #### E BS CMP, LIPID #### [facility] [address] [place] [id number] [place] Protein [Mass/Vol] 7.2 g/dL Normal 6.1-7.9 [facility] Comment on above: Performed By: #### E BS CMP, LIPID #### [facility] [address] [place] [id number] [place] Sodium [Moles/Vol] 136 mmol/L Normal 136-146 [facility] Comment on above: Performed By: #### E BS CMP, LIPID #### [facility] [address] [place] [address] [place] Urea nitrogen [Mass/Vol] 7 mg/dL Low - [facility] Comment on above: Performed By: #### E BS CMP, LIPID #### [facility] [address] [place] [address] [place] Lipid Panelon 02-09-2021 Cholesterol [Mass/Vol] 218 mg/dL High 140-200 [facility] Comment on above: Result Comment: Chol less than 200 mg/dl low risk Chol 201-239 mg/dl borderline risk Chol 240 mg/dl and greater high risk Performed By: #### E BS CMP, LIPID #### [facility] [address] Cholesterol in HDL [Mass/Vol] 75 mg/dL Normal 35-85 [facility] Comment on above: Result Comment: HDL CHOL ATP-III CLASSIFICATION Cardiovascular Risk HDL > or equal to 60 mg/dL LOW HDL < 40 mg/dL HIGH Performed By: #### E BS CMP, LIPID #### [facility] [address] [place] [address] [place] Cholesterol.total/Chol esterol in HDL [Mass ratio] 2.9 {ratio} Normal <5.0 [facility] Comment on above: Result Comment: PERF ORMED BY: [place] [address] PATHOLOGIST PICK UP WORKER JORDON BOWDEN M.D. Performed By: #### E BS CMP, LIPID #### [facility] [address] [place] [address] [place] LDL Cholesterol,Calculated 126 mg/dL High 0-100 [facility] Comment on above: Result Comment: LDL ATP III CLASSIFICATION LDL less than 100 mg/dL Optimal LDL 100-129 mg/dL Near or above optimal LDL 130-159 mg/dL Borderline high LDL 160-189 mg/dL High LDL greater than 189 mg/dL Very high Performed By: #### E BS CMP, LIPID #### [facility] [address] [place] [address] [place] Triglyceride w/Reflex 84 mg/dL Normal 35-149 [facility] Comment on above: Result Comment: TRIG ATP III CLASSIFICATION TRIG less than 150 mg/dL Normal TRIG 150-199 mg/dL Borderline high TRIG 200-500 mg/dL High TRIG greater than 500 mg/dL Very high Standard traceable to the Center for Disease Conrtrol and Prevention (CDC) test method. Performed By: #### E BS CMP, LIPID #### [facility] [address] VLDL CHOLESTEROL 16 mg/dL Normal [facility] Comment on above: Performed By: #### E BS CMP, LIPID #### [facility] [address] [place] [address] [facility] HPV Auto Reflex PAP (26509)O rdered By: Director Machine on 08-09-2020 HPV Auto Reflex PAP (59416) [facility] Normal [facility]; [facility] Work Phone: Comment on above: NEGATIVE FOR INTRAEP ITHELIAL LESION OR MALIGNANCY.Satisfactory for evaluation. No endocervical component is identified.Z01.419Amanda Monica Tee, [employer] Worker (ASCP) Source.............C ervix;EndocervixNo. of containers..01 ThinPrep VialPATIENT NOT FASTINGPERFORMED BY: LabSourceYourCitySwktkdhvno[address] [id number] Information: [id number] HPV Auto Reflex PAP (53707) . Normal [facility]; [facility] Work Phone: Comment on above: Source.............C ervix;EndocervixNo. of containers..01 ThinPrep VialPATIENT NOT FASTINGPERFORMED BY: Bra[employer] Careerist[address] [id number] Information: [id number] HPV Auto Reflex PAP (87682) PAPSMR Normal [facility]; [facility] [...] of containers..01 ThinPrep VialPATIENT NOT FASTINGPERFORMED BY: GitCafe120 [address] PlazaExpenseBotrleston W [id number] Information: [id number] Thin prep Pap (44668)Ordered By: Director Machine on 06-17-2019 Thin prep Pap (90686) 21-24 Normal Com [facility]hens[facility]; [facility] Work Phone: Comment on above: Source.............C ervix;EndocervixNo. of containers..01 ThinPrep VialPATIENT NOT FASTINGPERFORMED BY: =G LabIntelligentMDx120 [address] PlaAuro Mira Energyrleston W [id number] BY: GitCafe120 CloudShare[place] [id number] Information: [id number] IGP, CtNg, rfx Aptima HPV CUon 06-10-2018 C. trachomatis rRNA ZULEMA+probe Ql (Cvx) Negative Normal [facility] Work Phone: Comment on above: No. of containers..0 1 ThinPrep VialPERFORMED BY: =G LabIntelligentMDx120 [address] PlaAuro Mira Energyrleston W [id number] BY: GitCafe120 Link TriggerzaExpenseBotrleston [place] [id number] Microscopic observation Other stain Nom (Unsp spec) . Normal Comprehens [facility]ie [facility] Work Phone: Comment on above: No. of containers..0 1 ThinPrep VialPERFORMED BY: =G LabPrescient [facility] [place] [id number] BY: WB [facility] Gjdhqwfxho127 [address] [facility]elje[facility] [place] [id number] N. gonorrhoeae rRNA ZULEMA+probe Ql (Cvx) Negative Normal [facility] Work Phone: Comment on above: No. of containers..0 1 ThinPrep VialPERFORMED BY: =G [facility] Krdsyasone800 [address] [facility] [place] [id number] BY: WB [facility] Zdjrsnogwe620 [address] [facility]elje[facility] [place] [id number] Pathology report final diagnosis Narrative [facility] Normal Comprehensiv e [facility] Work Phone: Comment on above: NEGATIVE FOR INTRAEP ITHELIAL LESION AND MALIGNANCY.Satisfactory for evaluation. No endocervical component is identified.Z01.419Bruce Ck Bruner [employer] Worker (ASCP) No. of containers..0 1 ThinPrep VialPERFORMED BY: =G [facility] Zxyjnwqdwa950 [address] [facility] [place] [id number] BY: WB LabSourceYourCityQkauxjtibd613 [facility] CenterJessicajeff[facility] [place] [id number] IGP, CtNg, rfx Aptima HPV ASCU PAPSMR [...] containers..0 1 ThinPrep VialPERFORMED BY: =G [facility] Xgzwqbgngk466 [address] [facility] [place] [id number] BY: WB [facility] Lzcxfcgsrf464 [facility] [place] [id number] Thin prep Pap (39400) (no ST D testing)on 06-10-2018 Thin prep Pap (99629) (no STD testing) 21-24 Normal [facility] Work Phone: Comment on above: No. of containers..0 1 ThinPrep VialPERFORMED BY: =G LabCo[address] [id number] BY: WB LabCo Midahyscry[address] [id number] Information: [id number] Rapid Strep Test, Office (29 610)Ordered By: Katelyn Aburto on 05-23-2017 S. pyogenes Ag EIA Ql (Throat) Negative Normal [facility]; [facility] Work Phone: S. pyogenes Ag IA Ql (Unsp spec) Negative Normal [facility] Work Phone: VARICELLA-ZOSTER ANTBODY (06 927)on 09-11-2016 VZV IgG IA Qn (S) 3001 {index} Normal Compr e[facility] Work Phone: Comment on above: Negative <135 Equivo tristin 135 - 165 Positive >165 A positive result generally indicates exposure to the pathogen or administration of specific immunoglobulins, but it is not indication of active infection or stage of disease. PATIENT NOT FASTINGP ERFORMED BY: [facility] Xniwpu3555 [facility] [address] [address] [id number] Information: [id number] NuSwab STD (trich/BV/GC/clemente W/ Herpes) (52775)on 08-25-2016 A. vaginae DNA ZULEMA+probe Ql (Vag fld) Low - 0 Normal [facility] Work Phone: Comment on above: PATIENT NOT FASTINGP ERFORMED BY: [facility] Vtrtfulywl9591 [facility] [id number] Information: SRC:[place] Bacterial vaginosis associated bacterium 2 DNA ZULEMA+probe Ql (Vag fld) Low - 0 Normal [facility] Work Phone: Comment on above: PATIENT NOT FASTINGP ERFORMED BY: [address] [id number] Information: SRC:[place] C. albicans DNA ZULEMA+probe Ql (Vag fld) Negative Normal Comprehen replaced by [facility] Work Phone: Comment on above: PATIENT NOT FASTINGP ERFORMED BY: [address] [id number] Information: SRC:[place] C. glabrata DNA ZULEMA+probe Ql (Vag fld) Negative Normal Comprehen replaced by [facility] Work Phone: Comment on above: This test was develo ped and its performance characteristics determinedby [facility]. It has not been cleared or approved by the Food and DrugAdministration. The FDA has determined that such clearance orapproval is not necessary. PATIENT NOT FASTINGP ERFORMED BY: [address] [id number] Information: SRC:[place] C. trachomatis rRNA ZULEMA+probe Ql (Unsp spec) Negative Normal [facility] Work Phone: Comment on above: PATIENT NOT FASTINGP ERFORMED BY: [address] [id number] Information: SRC:[place] HSV 1 DNA ZULEMA+probe Ql (Unsp spec) Negative Normal [facility] Work Phone: Comment on above: PATIENT NOT FASTINGP ERFORMED BY: [address] [id number] Information: SRC:[place] HSV 2 DNA ZULEMA+probe Ql (Unsp spec) Negative Normal [facility] Work Phone: Comment on above: PATIENT NOT FASTINGP ERFORMED BY: [address] [id number] Information: SRC:[place] Megasphaera sp type 1 DNA [...] was developed and its performance characteristicsdetermined by [employer]. It has not been cleared or approvedby the Food and Drug Administration. The FDA has determinedthat such clearance or approval is not necessary. PATIENT NOT FASTINGP ERFORMED BY: [address] [id number] Information: SRC:[place] N. gonorrhoeae rRNA ZULEMA+probe Ql (Unsp spec) Negative Normal [facility] Work Phone: Comment on above: PATIENT NOT FASTINGP ERFORMED BY: [address] [id number] Information: SRC:[place] T. vaginalis rRNA ZULEMA+probe Ql (Unsp spec) Negative Normal [facility] Work Phone: Comment on above: PATIENT NOT FASTINGP ERFORMED BY: [address] [id number] Information: SRC:[place] NuSwab STD (trich/BV/GC/clemente W/ Herpes) (95089)Ordered By: Director Machine on 08-25-2016 C. albicans DNA ZULEMA+probe Ql (Vag fld) Negative Normal Comprehen sive [facility]; [facility] Work Phone: Comment on above: PATIENT NOT FASTINGP ERFORMED BY: [address] [id number] Information: SRC:[place] C. glabrata DNA ZULEMA+probe Ql (Vag fld) Negative Normal Comprehen sive [facility]; [facility] Work Phone: Comment on above: This test was develo ped and its performance characteristics determinedby [facility]. It has not been cleared or approved by the Food and DrugAdministration. The FDA has determined that such clearance orapproval is not necessary. PATIENT NOT FASTINGP ERFORMED BY: [address] [id number] Information: SRC:[place] C. trachomatis rRNA ZULEMA+probe Ql (Unsp spec) Negative Normal [facility]; [facility] Work Phone: Comment on above: PATIENT NOT FASTINGP ERFORMED BY: [address] [id number] Information: SRC:[place] HSV 1 DNA ZULEMA+probe Ql (Unsp spec) Negative Normal [facility]; [facility] Work Phone: Comment on above: PATIENT NOT FASTINGP ERFORMED BY: [address] [id number] Information: SRC:[place] HSV 2 DNA ZULEMA+probe Ql (Unsp spec) Negative Normal [facility]; [facility] Work Phone: Comment on above: PATIENT NOT FASTINGP ERFORMED BY: [address] [id number] Information: SRC:[place] N. gonorrhoeae rRNA ZULEMA+probe Ql (Unsp spec) Negative Normal [facility]; [facility] Work Phone: Comment on above: PATIENT NOT FASTINGP ERFORMED BY: [address] [id number] Information: SRC:[place] T. vaginalis rRNA ZULEMA+probe Ql (Unsp spec) Negative Normal [facility]; [facility] Work Phone: Comment on above: PATIENT NOT FASTINGP ERFORMED BY: [address] [id number] Information: SRC:[place] Pap IG (Image Guided)on 08-09 Microscopic observation Other stain Nom (Unsp spec) . Normal Comprehens marie Internal [facility] Work Phone: Comment on above: Source.............C ervix;EndocervixNo. of containers..01 CYTYC Thin Prep VialPATIENT NOT FASTINGPERFORMED BY: =[facility] [address] [id number] BY: WB [facility] [address] [id number] Pathology report final diagnosis Narrative [facility] Normal Comprehensiv e Internal Medicine Work Phone: Comment on above: NEGATIVE FOR INTRAEP ITHELIAL LESION AND MALIGNANCY.Satisfactory for evaluation. No endocervical component is identified.Z01.419Rensarahi Can, [employer] [place] Worker ([facility]) Source.............C ervix;EndocervixNo. of containers..01 CYTYC Thin Prep VialPATIENT NOT FASTINGPERFORMED BY: =G [employer] [id number] BY: [employer] S[address] [id number] Pap IG (Image Guided) PAPSMR Normal [facility] Internal Medicine Work Phone: Comment on [...] Thin Prep VialPATIENT NOT FASTINGPERFORMED BY: =G [employer] [place] [address] [id number] BY: [employer] Tsafgytwus[address] [id number] Thin Prep Pap ([id number])on 08-09 Thin Prep Pap (45019) AGE6 Normal [facility] prehensive Internal Medicine Work Phone: Comment on above: <21 or >65 or no age provided Source.............C ervix;EndocervixNo. of containers..01 CYTYC Thin Prep VialPATIENT NOT FASTINGPERFORMED BY: =G [employer] Careerist[address] StreetExpenseBotLifecare Hospital of Mechanicsburg [id number] BY: [employer] [id number] Information: [id number] No Panel Information Group B Streptococcus Culture Group B Beta Streptococcus is not isolated. [facility] Work Phone: Vital Signs Date Time Vital Sign Value Performing Clinician Facility 04-06-2025 14:20-0400 Body height 162.56 cm Kiya Percy SHORT ORDER COOK-C Work Phone: [facility] 04-06-2025 14:18-0400 Body mass index (BMI) [Ratio] 35.4 kg/m2 Kiya Percy SHORT ORDER COOK-C Work Phone: [facility] 04-06-2025 14:18-0400 Body weight 93.49 kg Kiya Percy SHORT ORDER COOK-C Work Phone: [facility] 04-06-2025 14:18-0400 Diastolic blood pressure 81 mm[Hg] Kiya Percy SHORT ORDER COOK-C Work Phone: [facility] 04-06-2025 14:18-0400 Systolic blood pressure 126 mm[Hg] Kiya Percy SHORT ORDER COOK-C Work Phone: [facility] 03-23-2025 13:40-0400 Body mass index (BMI) [Ratio] 35.5 kg/m2 Kiya Percy SHORT ORDER COOK-C Work Phone: [facility] 03-23-2025 13:40-0400 Body weight 93.92 kg Kiya Percy SHORT ORDER COOK-C Work Phone: [facility] 03-23-2025 13:40-0400 Diastolic blood pressure 81 mm[Hg] Kiya Percy SHORT ORDER COOK-C Work Phone: [facility] 03-23-2025 13:40-0400 Systolic blood pressure 112 mm[Hg] Kiya Percy SHORT ORDER COOK-C Work Phone: [facility] 03-09-2025 09:27-0400 Body height 162.56 cm Kiya Percy SHORT ORDER COOK-C Work Phone: [facility] 03-09-2025 09:27-0400 Body mass index (BMI) [Ratio] 34.9 kg/m2 Kiya Percy SHORT ORDER COOK-C Work Phone: [facility] 03-09-2025 09:27-0400 Body weight 92.24 kg Kiya Percy SHORT ORDER COOK-C Work Phone: [facility] 03-09-2025 09:27-0400 Diastolic blood pressure 79 mm[Hg] Kiya Percy SHORT ORDER COOK-C Work Phone: [facility] 03-09-2025 09:27-0400 Systolic blood pressure 119 mm[Hg] Kiya Percy SHORT ORDER COOK-C Work Phone: [facility] 02-25-2025 09:45-0400 Body height 162.56 cm Kiya Percy SHORT ORDER COOK-C Work Phone: [facility] 02-25-2025 09:45-0400 Body mass index (BMI) [Ratio] 34.5 kg/m2 Kiya Percy SHORT ORDER COOK-C Work Phone: [facility] 02-25-2025 09:45-0400 Body weight 91.28 kg Kiya Percy SHORT ORDER COOK-C Work Phone: [facility] 02-25-2025 09:45-0400 Diastolic blood pressure 82 mm[Hg] Kiya Percy SHORT ORDER COOK-C Work Phone: [facility] 02-25-2025 09:45-0400 Systolic blood pressure 131 mm[Hg] Kiya Percy SHORT ORDER COOK-C Work Phone: [facility] 02-11-2025 09:41-0400 Body height 162.56 cm Kiya Percy SHORT ORDER COOK-C Work Phone: [facility] 02-11-2025 09:39-0400 Body mass index (BMI) [Ratio] 34.3 kg/m2 Kiya Percy SHORT ORDER COOK-C Work Phone: [facility] 02-11-2025 09:39-0400 Body weight 90.77 kg Kiya Percy SHORT ORDER COOK-C Work Phone: [facility] 02-11-2025 09:39-0400 Diastolic blood pressure 80 mm[Hg] Kiya Percy SHORT ORDER COOK-C Work Phone: [facility] 02-11-2025 09:39-0400 Systolic blood pressure 127 mm[Hg] Kiya Percy SHORT ORDER COOK-C Work Phone: [facility] 01-26-2025 09:18-0400 Body height 162.56 cm Kiya Percy SHORT ORDER COOK-C Work Phone: [facility] 01-26-2025 09:18-0400 Body mass index (BMI) [Ratio] 33.8 kg/m2 Kiya Percy SHORT ORDER COOK-C Work Phone: [facility] 01-26-2025 09:18-0400 Body weight 89.41 kg Kiya Percy SHORT ORDER COOK-C Work Phone: [facility] 01-26-2025 09:18-0400 Diastolic blood pressure 76 mm[Hg] Kiya Percy SHORT ORDER COOK-C Work Phone: [facility] 01-26-2025 09:18-0400 Systolic blood pressure 131 mm[Hg] Kiya Percy SHORT ORDER COOK-C Work Phone: [facility] 12-31-2024 08:38-0400 Body height 162.56 cm Kiya Percy SHORT ORDER COOK-C Work Phone: [facility] 12-31-2024 08:37-0400 Body mass index (BMI) [Ratio] 33 kg/m2 Kiya Percy SHORT ORDER COOK-C Work Phone: [facility] 12-31-2024 08:37-0400 Body weight 87.31 kg Kiya Percy SHORT ORDER COOK-C Work Phone: [facility] 12-31-2024 08:37-0400 Diastolic blood pressure 74 mm[Hg] Kiya Percy SHORT ORDER COOK-C Work Phone: [facility] 12-31-2024 08:37-0400 Systolic blood pressure 108 mm[Hg] Kiya Percy SHORT ORDER COOK-C Work Phone: [facility] 12-01-2024 10:16-0400 Body height 162.56 cm Kiya Percy SHORT ORDER COOK-C Work Phone: [facility] 12-01-2024 10:16-0400 Body mass index (BMI) [Ratio] 31.1 kg/m2 Kiya Percy SHORT ORDER COOK-C Work Phone: [facility] 12-01-2024 10:16-0400 Body weight 82.21 kg Kiya Percy SHORT ORDER COOK-C Work Phone: [facility] 12-01-2024 10:16-0400 Diastolic blood pressure 73 mm[Hg] Kiya Percy SHORT ORDER COOK-C Work Phone: [facility] 12-01-2024 10:16-0400 Systolic blood pressure 137 mm[Hg] Kiya Percy SHORT ORDER COOK-C Work Phone: [facility] 11-05-2024 08:44-0400 Body height 162.56 cm Kiya Percy SHORT ORDER COOK-C Work Phone: [facility] 11-05-2024 08:41-0400 Body mass index (BMI) [Ratio] 30.7 kg/m2 Kiya Percy SHORT ORDER COOK-C Work Phone: [facility] 11-05-2024 08:41-0400 Body weight 81.24 kg Kiya Percy SHORT ORDER COOK-C Work Phone: [facility] 11-05-2024 08:41-0400 Diastolic blood pressure 85 mm[Hg] Kiya Percy SHORT ORDER COOK-C Work Phone: [facility] 11-05-2024 08:41-0400 Systolic blood pressure 125 mm[Hg] Kiya Percy SHORT ORDER COOK-C Work Phone: [facility] 09-29-2024 10:27-0400 Body height 162.56 cm Kiya Percy SHORT ORDER COOK-C Work Phone: [facility] 09-29-2024 10:27-0400 Body mass index (BMI) [Ratio] 29.4 kg/m2 Kiya Percy SHORT ORDER COOK-C Work Phone: [facility] 09-29-2024 10:27-0400 Body weight 77.67 kg Kiya Percy SHORT ORDER COOK-C Work Phone: [facility] 09-29-2024 10:27-0400 Diastolic blood pressure 78 mm[Hg] Kiya Percy SHORT ORDER COOK-C Work Phone: [facility] 09-29-2024 10:27-0400 Systolic blood pressure 129 mm[Hg] Kiya Percy SHORT ORDER COOK-C Work Phone: [facility] 09-19-2022 08:17-0400 Body height 167.64 cm Lilian Sepidehrb PERFORATOR TYPIST [facility]; [facility] Work Phone: 09-19-2022 08:17-0400 Body mass index (BMI) [Ratio] 24.86 kg/m2 Lilian Slarb PERFORATOR TYPIST [facility]; [facility] Work Phone: 09-19-2022 08:17-0400 Body surface area Derived from formula 1.79 m2 Lilian Slarb PERFORATOR TYPIST [facility]; [facility] Work Phone: 09-19-2022 08:17-0400 Body temperature 98.1 [degF] Lilian Slarb PERFORATOR TYPIST [facility]; [facility] Work Phone: Comment on above: Method: Temporal 09-19-2022 08:17-0400 Body weight 69.85 kg Lilian Slarb PERFORATOR TYPIST [facility]; [facility] Work Phone: 09-19-2022 08:17-0400 Diastolic blood pressure 76 mm[Hg] Lilian Slarb PERFORATOR TYPIST [facility]; [facility] Work Phone: Comment on above: Patient Position: Sitting; Cuff Location : Left Arm; Cuff Size: Standard 09-19-2022 08:17-0400 Heart rate 95 /min Lilian Slarb PERFORATOR TYPIST [facility]; [facility] Work Phone: Comment on above: Pattern: Regular 09-19-2022 08:17-0400 Respiratory rate 16 /min Lilian Pineda PERFORATOR TYPIST [facility]; [facility] Work Phone: Comment on above: Pattern: Unlabored 09-19-2022 08:17-0400 SaO2% (BldA) [Mass fraction] 98 % Lilian Pineda PERFORATOR TYPIST [facility]; [facility] Work Phone: Comment on above: Room air 09-19-2022 08:17-0400 Systolic blood pressure 114 mm[Hg] Lilian Pineda PERFORATOR TYPIST [facility]; [facility] Work Phone: Comment on above: Patient Position: Sitting; Cuff Location : Left Arm; Cuff Size: Standard 02-06-2022 08:32-0400 Body temperature 97.7 [degF] SHORT ORDER COOK-C Sowmya Rodrigueza SHORT ORDER COOK Work Phone: [facility] Work Phone: 02-06-2022 08:32-0400 Diastolic blood pressure 86 mm[Hg] SHORT ORDER COOK-C Sowmya Moralesesa SHORT ORDER COOK Work Phone: [facility] Work Phone: 02-06-2022 08:32-0400 Heart rate 76 /min SHORT ORDER COOK-C Sowmya Rodrigueza SHORT ORDER COOK Work Phone: [facility] Work Phone: 02-06-2022 08:32-0400 Respiratory rate 16 /min SHORT ORDER COOK-C Sowmya Moralesesa SHORT ORDER COOK Work Phone: [facility] Work Phone: 02-06-2022 08:32-0400 SaO2% (BldA) [Mass fraction] 96 % SHORT ORDER COOK-C Sowmya Moralesesa SHORT ORDER COOK Work Phone: [facility] Work Phone: 02-06-2022 08:32-0400 Systolic blood pressure 128 mm[Hg] SHORT ORDER COOK-C Sowmya Moralesesa SHORT ORDER COOK Work Phone: [facility] Work Phone: 02-04-2022 07:12-0400 Body height 162.56 cm SHORT ORDER COOK-C Sowmya Cidavida SHORT ORDER COOK Work Phone: [facility] Work Phone: 02-04-2022 07:12-0400 Body mass index (BMI) [Ratio] 32.8 kg/m2 SHORT ORDER COOK-C Sowmya Ciesa SHORT ORDER COOK Work Phone: [facility] Work Phone: 02-04-2022 07:12-0400 Body weight 86.7 kg SHORT ORDER COOK-C Sowmya Ciesa SHORT ORDER COOK Work Phone: [facility] Work Phone: 02-03-2022 14:33-0400 Body mass index (BMI) [Ratio] 32.4 kg/m2 SHORT ORDER COOK-C Sowmya Ciesa SHORT ORDER COOK Work Phone: [facility] Work Phone: 02-03-2022 14:33-0400 Body weight 85.72 kg SHORT ORDER COOK-C Sowmya Ciesa SHORT ORDER COOK Work Phone: [facility] Work Phone: 02-03-2022 14:33-0400 Diastolic blood pressure 60 mm[Hg] SHORT ORDER COOK-C Sowmya Ciesa SHORT ORDER COOK Work Phone: [facility] Work Phone: 02-03-2022 14:33-0400 Systolic blood pressure 124 mm[Hg] SHORT ORDER COOK-C Sowmya Ciesa SHORT ORDER COOK Work Phone: [facility] Work Phone: 01-27-2022 10:58-0400 Body mass index (BMI) [Ratio] 32 kg/m2 SHORT ORDER COOK-C Sowmya Ciesa SHORT ORDER COOK Work Phone: [facility] Work Phone: 01-27-2022 10:58-0400 Body weight 84.59 kg SHORT ORDER COOK-C Sowmya Ciesa SHORT ORDER COOK Work Phone: [facility] Work Phone: 01-27-2022 10:58-0400 Diastolic blood pressure 76 mm[Hg] SHORT ORDER COOK-C Sowmya Ciesa SHORT ORDER COOK Work Phone: [facility] Work Phone: 01-27-2022 10:58-0400 Systolic blood pressure 128 mm[Hg] SHORT ORDER COOK-C Sowmya Ciesa SHORT ORDER COOK Work Phone: [facility] Work Phone: 01-17-2022 11:19-0400 Diastolic blood pressure 70 mm[Hg] SHORT ORDER COOK-C Sowmya Ciesa SHORT ORDER COOK Work Phone: [facility] Work Phone: 01-17-2022 11:19-0400 Systolic blood pressure 98 mm[Hg] SHORT ORDER COOK-C Sowmya Ciesa SHORT ORDER COOK Work Phone: [facility] Work Phone: 01-17-2022 11:19-0400 Body mass index (BMI) [Ratio] 31.7 kg/m2 SHORT ORDER COOK-C Sowmya Ciesa SHORT ORDER COOK Work Phone: [facility] Work Phone: 01-17-2022 11:19-0400 Body weight 83.91 kg SHORT ORDER COOK-C Sowmya Ciesa SHORT ORDER COOK Work Phone: [facility] Work Phone: 01-11-2022 08:54-0400 Body mass index (BMI) [Ratio] 31.4 kg/m2 SHORT ORDER COOK-C Sowmya Ciesa SHORT ORDER COOK Work Phone: [facility] Work Phone: 01-11-2022 08:54-0400 Body weight 83 kg SHORT ORDER COOK-C Sowmya Ciesa SHORT ORDER COOK Work Phone: [facility] Work Phone: 01-11-2022 08:54-0400 Diastolic blood pressure 82 mm[Hg] SHORT ORDER COOK-C Sowmya Ciesa SHORT ORDER COOK Work Phone: [facility] Work Phone: 01-11-2022 08:54-0400 Systolic blood pressure 122 mm[Hg] SHORT ORDER COOK-C Sowmya Ciesa SHORT ORDER COOK Work Phone: [facility] Work Phone: 01-02-2022 13:19-0400 Body height 162.56 cm SHORT ORDER COOK-C Sowmya Ciesa SHORT ORDER COOK Work Phone: [facility] Work Phone: 01-02-2022 13:18-0400 Body mass index (BMI) [Ratio] 30.9 kg/m2 SHORT ORDER COOK-C Sowmya Ciesa SHORT ORDER COOK Work Phone: [facility] Work Phone: 01-02-2022 13:18-0400 Body weight 81.64 kg SHORT ORDER COOK-C Sowmya Carmenesa SHORT ORDER COOK Work Phone: [facility] Work Phone: 01-02-2022 13:18-0400 Diastolic blood pressure 74 mm[Hg] SHORT ORDER COOK-C Sowmya Moralesesa SHORT ORDER COOK Work Phone: [facility] Work Phone: 01-02-2022 13:18-0400 Systolic blood pressure 112 mm[Hg] SHORT ORDER COOK-C Sowmya Moralesesa SHORT ORDER COOK Work Phone: [facility] Work Phone: 12-27-2021 09:35-0400 Body mass index (BMI) [Ratio] 30.2 kg/m2 SHORT ORDER COOK-C Sowmya Ciesa SHORT ORDER COOK Work Phone: [facility] Work Phone: 12-27-2021 09:35-0400 Body weight 79.83 kg SHORT ORDER COOK-C Sowmya Ciesa SHORT ORDER COOK Work Phone: [facility] Work Phone: 12-27-2021 09:35-0400 Diastolic blood pressure 79 mm[Hg] SHORT ORDER COOK-C Sowmya Ciesa SHORT ORDER COOK Work Phone: [facility] Work Phone: 12-27-2021 09:35-0400 Heart rate 107 /min SHORT ORDER COOK-C Sowmya Rodrigueza SHORT ORDER COOK Work Phone: [facility] Work Phone: 12-27-2021 09:35-0400 Respiratory rate 16 /min SHORT ORDER COOK-C Sowmya Rodrigueza SHORT ORDER COOK Work Phone: [facility] Work Phone: 12-27-2021 09:35-0400 SaO2% (BldA) [Mass fraction] 99 % SHORT ORDER COOK-C Sowmya Rodrigueza SHORT ORDER COOK Work Phone: [facility] Work Phone: 12-27-2021 09:35-0400 Systolic blood pressure 129 mm[Hg] SHORT ORDER COOK-C Sowmya Rodrigueza SHORT ORDER COOK Work Phone: [facility] Work Phone: 12-20-2021 10:39-0400 Body mass index (BMI) [Ratio] 30.2 kg/m2 SHORT ORDER COOK-C Sowmya Rodrigueza SHORT ORDER COOK Work Phone: [facility] Work Phone: 12-20-2021 10:39-0400 Body weight 79.88 kg SHORT ORDER COOK-C Sowmya Rodrigueza SHORT ORDER COOK Work Phone: [facility] Work Phone: 12-20-2021 10:39-0400 Diastolic blood pressure 64 mm[Hg] SHORT ORDER COOK-C Sowmya Rodrigueza SHORT ORDER COOK Work Phone: [facility] Work Phone: 12-20-2021 10:39-0400 Systolic blood pressure 132 mm[Hg] SHORT ORDER COOK-C Sowmya Moralesesa SHORT ORDER COOK Work Phone: [facility] Work Phone: 12-14-2021 13:28-0400 Diastolic blood pressure 70 mm[Hg] SHORT ORDER COOK-C Sowmya Moralesesa SHORT ORDER COOK Work Phone: [facility] Work Phone: 12-14-2021 13:28-0400 Heart rate 105 /min SHORT ORDER COOK-C Sowmya Baldwin SHORT ORDER COOK Work Phone: [facility] Work Phone: 12-14-2021 13:28-0400 Respiratory rate 16 /min SHORT ORDER COOK-C Sowmya Baldwin SHORT ORDER COOK Work Phone: [facility] Work Phone: 12-14-2021 13:28-0400 SaO2% (BldA) [Mass fraction] 98 % SHORT ORDER COOK-C Sowmya Baldwin SHORT ORDER COOK Work Phone: [facility] Work Phone: 12-14-2021 13:28-0400 Systolic blood pressure 115 mm[Hg] SHORT ORDER COOK-C Sowmya Baldwin SHORT ORDER COOK Work Phone: [facility] Work Phone: 12-14-2021 10:57-0400 Body height 162.56 cm SHORT ORDER COOK-C Sowmya Baldwin SHORT ORDER COOK Work Phone: [facility] Work Phone: 12-14-2021 10:57-0400 Body mass index (BMI) [Ratio] 29.5 kg/m2 SHORT ORDER COOK-C Sowmya Baldwin SHORT ORDER COOK Work Phone: [facility] Work Phone: 12-14-2021 10:57-0400 Body temperature 97.8 [degF] SHORT ORDER COOK-C Sowmya Baldwin SHORT ORDER COOK Work Phone: [facility] Work Phone: 12-14-2021 10:57-0400 Body weight 78.01 kg SHORT ORDER COOK-C Sowmya Baldwin SHORT ORDER COOK Work Phone: [facility] Work Phone: 12-08-2021 09:02-0400 Body mass index (BMI) [Ratio] 29.5 kg/m2 SHORT ORDER COOK-C Sowmya Baldwin SHORT ORDER COOK Work Phone: [facility] Work Phone: 12-08-2021 09:02-0400 Body weight 78.01 kg SHORT ORDER COOK-C Sowmya Ciesa SHORT ORDER COOK Work Phone: [facility] Work Phone: 12-08-2021 09:02-0400 Diastolic blood pressure 56 mm[Hg] SHORT ORDER COOK-C Sowmya Ciesa SHORT ORDER COOK Work Phone: [facility] Work Phone: 12-08-2021 09:02-0400 Systolic blood pressure 124 mm[Hg] SHORT ORDER COOK-C Sowmya Ciesa SHORT ORDER COOK Work Phone: [facility] Work Phone: 11-25-2021 09:53-0400 Body mass index (BMI) [Ratio] 29 kg/m2 SHORT ORDER COOK-C Sowmya Ciesa SHORT ORDER COOK Work Phone: [facility] Work Phone: 11-25-2021 09:53-0400 Body weight 76.71 kg SHORT ORDER COOK-C Sowmya Ciesa SHORT ORDER COOK Work Phone: [facility] Work Phone: 11-25-2021 09:53-0400 Diastolic blood pressure 70 mm[Hg] SHORT ORDER COOK-C Sowmya Ciesa SHORT ORDER COOK Work Phone: [facility] Work Phone: 11-25-2021 09:53-0400 Systolic blood pressure 120 mm[Hg] SHORT ORDER COOK-C Sowmya Ciesa SHORT ORDER COOK Work Phone: [facility] Work Phone: 11-08-2021 10:24-0400 Body mass index (BMI) [Ratio] 28.5 kg/m2 SHORT ORDER COOK-C Sowmya Ciesa SHORT ORDER COOK Work Phone: [facility] Work Phone: 11-08-2021 10:24-0400 Body weight 75.4 kg SHORT ORDER COOK-C Sowmya Ciesa SHORT ORDER COOK Work Phone: [facility] Work Phone: 11-08-2021 10:24-0400 Diastolic blood pressure 60 mm[Hg] SHORT ORDER COOK-C Sowmya Ciesa SHORT ORDER COOK Work Phone: [facility] Work Phone: 11-08-2021 10:24-0400 Systolic blood pressure 100 mm[Hg] SHORT ORDER COOK-C Sowmya Ciesa SHORT ORDER COOK Work Phone: [facility] Work Phone: 10-26-2021 08:31-0400 Body mass index (BMI) [Ratio] 28.2 kg/m2 SHORT ORDER COOK-C Sowmya Carmenesa SHORT ORDER COOK Work Phone: [facility] Work Phone: 10-26-2021 08:31-0400 Body weight 74.55 kg SHORT ORDER COOK-C Sowmya Moralesesa SHORT ORDER COOK Work Phone: [facility] Work Phone: 10-26-2021 08:31-0400 Diastolic blood pressure 70 mm[Hg] SHORT ORDER COOK-C Sowmya Moralesesa SHORT ORDER COOK Work Phone: [facility] Work Phone: 10-26-2021 08:31-0400 Systolic blood pressure 110 mm[Hg] SHORT ORDER COOK-C Sowmya Moralesesa SHORT ORDER COOK Work Phone: [facility] Work Phone: 10-26-2021 08:31-0400 Body height 162.56 cm SHORT ORDER COOK-C Sowmya Moralesesa SHORT ORDER COOK Work Phone: [facility] System Work Phone: 10-26-2021 08:31-0400 Body mass index (BMI) [Ratio] 28.2 kg/m2 SHORT ORDER COOK-C Sowmya Moralesesa SHORT ORDER COOK Work Phone: [facility] Work Phone: 10-26-2021 08:31-0400 Body weight 74.55 kg SHORT ORDER COOK-C Sowmya Moralesesa SHORT ORDER COOK Work Phone: [facility] Work Phone: 10-26-2021 08:31-0400 Diastolic blood pressure 70 mm[Hg] SHORT ORDER COOK-C Sowmya Ciesa SHORT ORDER COOK Work Phone: [facility] Work Phone: 10-26-2021 08:31-0400 Systolic blood pressure 110 mm[Hg] SHORT ORDER COOK-C Sowmya Rodrigueza SHORT ORDER COOK Work Phone: [facility] Work Phone: 09-23-2021 09:45-0400 Body mass index (BMI) [Ratio] 26.6 kg/m2 SHORT ORDER COOK-C Sowmya Rodrigueza SHORT ORDER COOK Work Phone: [facility] Work Phone: 09-23-2021 09:45-0400 Body weight 70.36 kg SHORT ORDER COOK-C Sowmya Rodrigueza SHORT ORDER COOK Work Phone: [facility] Work Phone: 09-23-2021 09:45-0400 Diastolic blood pressure 70 mm[Hg] SHORT ORDER COOK-C Sowmya Moralesesa SHORT ORDER COOK Work Phone: [facility] Work Phone: 09-23-2021 09:45-0400 Systolic blood pressure 130 mm[Hg] SHORT ORDER COOK-C Sowmya Rodrigueza SHORT ORDER COOK Work Phone: [facility] Work Phone: 08-23-2021 08:52-0400 Body mass index (BMI) [Ratio] 25.6 kg/m2 SHORT ORDER COOK-C Sowmya Rodrigueza SHORT ORDER COOK Work Phone: [facility] Work Phone: 08-23-2021 08:52-0400 Body weight 67.75 kg SHORT ORDER COOK-C Sowmya Rodrigueza SHORT ORDER COOK Work Phone: [facility] Work Phone: 08-23-2021 08:52-0400 Diastolic blood pressure 80 mm[Hg] SHORT ORDER COOK-C Sowmya Moralesesa SHORT ORDER COOK Work Phone: [facility] Work Phone: 08-23-2021 08:52-0400 Systolic blood pressure 110 mm[Hg] SHORT ORDER COOK-C Sowmya Rodrigueza SHORT ORDER COOK Work Phone: [facility] Work Phone: 08-23-2021 08:52-0400 Body mass index (BMI) [Ratio] 25.6 kg/m2 SHORT ORDER COOK-C Sowmya Ciesa SHORT ORDER COOK Work Phone: [facility] Work Phone: 08-23-2021 08:52-0400 Body weight 67.75 kg SHORT ORDER COOK-C Sowmya Ciesa SHORT ORDER COOK Work Phone: [facility] Work Phone: 08-23-2021 08:52-0400 Diastolic blood pressure 80 mm[Hg] SHORT ORDER COOK-C Sowmya Ciesa SHORT ORDER COOK Work Phone: [facility] Work Phone: 08-23-2021 08:52-0400 Systolic blood pressure 110 mm[Hg] SHORT ORDER COOK-C Sowmya Ciesa SHORT ORDER COOK Work Phone: [facility] Work Phone: 07-26-2021 08:02-0500 Body mass index (BMI) [Ratio] 25 kg/m2 SHORT ORDER COOK-C Sowmya Ciesa SHORT ORDER COOK Work Phone: [facility] Work Phone: 07-26-2021 08:02-0500 Body weight 66.28 kg SHORT ORDER COOK-C Sowmya Ciesa SHORT ORDER COOK Work Phone: [facility] Work Phone: 07-26-2021 08:02-0500 Diastolic blood pressure 80 mm[Hg] SHORT ORDER COOK-C Sowmya Ciesa SHORT ORDER COOK Work Phone: [facility] Work Phone: 07-26-2021 08:02-0500 Systolic blood pressure 124 mm[Hg] SHORT ORDER COOK-C Sowmya Ciesa SHORT ORDER COOK Work Phone: [facility] Work Phone: 06-30-2021 09:17-0500 Body mass index (BMI) [Ratio] 25 kg/m2 SHORT ORDER COOK-C Sowmya Ciesa SHORT ORDER COOK Work Phone: [facility] Work Phone: 06-30-2021 09:17-0500 Body weight 66.28 kg SHORT ORDER COOK-C Sowmya Baldwin SHORT ORDER COOK Work Phone: [facility] Work Phone: 06-30-2021 09:17-0500 Diastolic blood pressure 90 mm[Hg] SHORT ORDER COOK-C Sowmya Baldwin SHORT ORDER COOK Work Phone: [facility] Work Phone: 06-30-2021 09:17-0500 Systolic blood pressure 140 mm[Hg] SHORT ORDER COOK-C Sowmya Rodrigueza SHORT ORDER COOK Work Phone: [facility] Work Phone: 08-09-2020 11:01-0500 BMI (Body [...] 11:01-0500 Pulse (Heart Rate) 101 /min Rosalino aRmírez LPN Comprehensiv e Internal Medicine; [facility] [...] 08:39-0500 Body Temperature 98.4 [degF] Ele Roselear [facility] Internal Medicine Work Phone: Comment on above: Method: Temporal 06-10-2018 08:39-0500 Body weight 67.3 kg Ele Osorio [facility] Internal Medicine Work Phone: 06-10-2018 08:39-0500 BP Diastolic 78 mm[Hg] Ele Jo [facility] Internal Medicine Work Phone: Comment on above: Patient Position: Sitting; Cuff Location : Left Arm; Cuff Size: Standard 06-10-2018 08:39-0500 BP Systolic 132 mm[Hg] Ele Osorio [facility] Internal Medicine Work Phone: Comment on above: Patient Position: Sitting; Cuff Location : Left Arm; Cuff Size: Standard 06-10-2018 08:39-0500 BSA (Body Surface Area) 1.76 m2 Ele Osorio [facility] Internal Medicine Work Phone: 06-10-2018 08:39-0500 Height 167.64 cm Ele Osorio [facility] Internal Medicine Work Phone: 06-10-2018 08:39-0500 Pulse (Heart Rate) 113 /min Ele Osorio [facility] Internal Medicine Work Phone: Comment on above: Pattern: Regular 06-10-2018 08:39-0500 Pulse Oximetry 98 % Somwya Denny [facility] Internal Medicine Work Phone: Comment on above: Room air 06-10-2018 08:39-0500 Respiratory Rate 16 /min Ele Osorio [facility] Internal Medicine Work Phone: Comment on above: Pattern: Unlabored 06-10-2018 08:39-0500 SaO2% (BldA) [Mass fraction] 98 % Ele Osorio [facility] Internal Medicine; [facility] Internal Medicine Work Phone: Comment on above: Room air 05-23-2017 11:38-0500 BMI (Body Mass Index) 20.01 kg/m2 Katelyn Aburto [facility] Internal Medicine Work Phone: 05-23-2017 11:38-0500 Body weight 56.25 kg [facility] Work Phone: 05-23-2017 11:38-0500 BP Diastolic 70 mm[Hg] Katelyn Aburto [facility] Internal Medicine Work Phone: Comment on above: Patient Position: Sitting; Cuff Location : Left Arm; Cuff Size: Standard 05-23-2017 11:38-0500 BP Systolic 115 mm[Hg] [facility] Work Phone: Comment on above: Patient Position: Sitting; Cuff Location : Left Arm; Cuff Size: Standard 05-23-2017 11:38-0500 BSA (Body Surface Area) 1.63 m2 [facility] Work Phone: 05-23-2017 11:38-0500 Height 167.64 cm [facility] Work Phone: 05-23-2017 11:38-0500 Pulse (Heart Rate) 82 /min Katelyn Aburto [facility] Medicine Work Phone: Comment on above: Pattern: Regular 05-23-2017 11:38-0500 Pulse Oximetry 98 % Sowmya Baldwin [facility] Work Phone: Comment on above: Room air 05-23-2017 11:38-0500 Respiratory Rate 16 /min Kateyln Aburto [facility] Work Phone: Comment on above: Pattern: Unlabored 05-23-2017 11:38-0500 SaO2% (BldA) [Mass fraction] 98 % Katelyn Aburto [facility]; [facility] Work Phone: Comment on above: Room air 08-25-2016 10:24-0400 BMI (Body Mass Index) 20.01 kg/m2 Lilian Slarb PERFORATOR TYPIST [facility] Work Phone: 08-25-2016 10:24-0400 Body Temperature 98.3 [degF] Lilian Slarb PERFORATOR TYPIST [facility] Work Phone: 08-25-2016 10:24-0400 Body weight 56.25 kg Lilian Slarb PERFORATOR TYPIST [facility] Work Phone: 08-25-2016 10:24-0400 BP Diastolic 78 mm[Hg] Lilian Slarb PERFORATOR TYPIST [facility] Work Phone: Comment on above: Patient Position: Sitting; Cuff Location : Left Arm; Cuff Size: Standard 08-25-2016 10:24-0400 BP Systolic 118 mm[Hg] Lilian Slarb PERFORATOR TYPIST [facility] Work Phone: Comment on above: Patient Position: Sitting; Cuff Location : Left Arm; Cuff Size: Standard 08-25-2016 10:24-0400 BSA (Body Surface Area) 1.63 m2 Lilian Slarb PERFORATOR TYPIST [facility] Work Phone: 08-25-2016 10:24-0400 Height 167.64 cm Lilian Slarb PERFORATOR TYPIST [facility] Work Phone: 08-25-2016 10:24-0400 Pulse (Heart Rate) 68 /min Lilian Miriam GIVENS Comprehensiv e Internal Medicine Work Phone: Comment on above: Pattern: Regular 08-25-2016 10:24-0400 Pulse Oximetry 98 % Sowmya Balwdin [facility] Work Phone: Comment on [...] Type Care Provider Facility Start: 04-20-2025 ambulatory [facility] Facility :[facility] [place] [place] Start: 04-20-2025 End: 04-20-2025 ambulatory [facility] Facility:[facility] Start: 04-14-2025 End: 04-14-2025 ambulatory Kiya Mccalla Facility:[facility] [place] [place] Start: 04-06-2025 ambulatory Rose Chow[facility] Start: 04-06-2025 End: 04-06-2025 ambulatory [facility] Facility:[facility] [place] [place] Start: 03-23-2025 End: 03-23-2025 Patient encounter procedure Suzanne Salazar SHORT ORDER COOK-C -[facility] Work Phone: Start: 03-23-2025 End: 03-23-2025 ambulatory Kiya Greer SHORT ORDER COOK-C Work Phone: -[facility] Start: 03-09-2025 End: 03-09-2025 ambulatory Kiya Greer SHORT ORDER COOK-C Work Phone: -[facility] Start: 03-09-2025 End: 03-09-[address] Rose Mahmood DO -[facility] Work Phone: Start: 02-25-2025 End: 02-25-[address] Dorothy Lee MD -[facility] Work Phone: Start: 02-25-2025 End: 02-25-2025 ambulatory Kiya Greer SHORT ORDER COOK-C Work Phone: [facility] Start: 02-11-2025 End: 02-11-[address] Rose Mahmood DO -[facility] Work Phone: Start: 02-11-2025 End: 02-11-2025 ambulatory Kiya Greer SHORT ORDER COOK-C Work Phone: [facility] Start: 01-26-2025 End: 01-26-[address] Dorothy Lee MD -[facility] Work Phone: Start: 01-26-2025 End: 01-26-2025 ambulatory Kiya Greer SHORT ORDER COOK-C Work Phone: [facility] Start: 01-26-2025 End: 01-26-2025 ambulatory Kiya Greer Facility:[facility] Start: 12-31-2024 End: 12-31-[address] Rose Mahmood DO -[facility] Work Phone: Start: 12-31-2024 End: 12-31-2024 ambulatory Kiya Greer SHORT ORDER COOK-C Work Phone: [facility] Start: 12-15-2024 End: 12-15-2024 ambulatory NO PRIMARY CARE [facility] Start: 12-01-2024 End: 12-01-2024 ambulatory NO PRIMARY CARE [facility] Start: 12-01-2024 End: 12-01-[address] Dorothy Lee MD -[facility] Work Phone: Start: 12-01-2024 End: 12-01-2024 ambulatory Kiya Greer SHORT ORDER COOK-C Work Phone: [facility] Work Phone: Start: 11-05-2024 End: 11-05-[address] Rose Mahmood DO -[facility] Work Phone: Start: 11-05-2024 End: 11-05-2024 ambulatory Kiya Percy SHORT ORDER COOK-C Work Phone: [facility] Work Phone: Start: 11-05-2024 End: 11-05-2024 ambulatory Kiya Greer Facility:[facility] Start: 09-29-2024 End: 09-29-2024 ambulatory Kiya Greer SHORT ORDER COOK-C Work Phone: [facility] Work Phone: Start: 09-29-2024 End: 09-29-[address] Dorothy Lee MD -Laboratory, Specimen Work Phone: Start: 09-29-2024 End: 09-29-[address] Dorothy Lee MD -[facility] Work Phone: Start: 09-29-2024 End: 09-29-2024 ambulatory Kiya Greer Facility:[facility] [place] [place] Start: 09-29-2024 End: 09-29-2024 ambulatory Dorothy Lee Facility:[facility] Start: 04-28-2024 End: 04-28-2024 ambulatory Kiya Greer Facility:[facility] Start: 04-28-2024 End: 04-28-2024 ambulatory Suzanne Salazar SHORT ORDER COOK Facility:[facility] Start: 09-19-2022 ambulatory Kiya Greer NURSERY HAND Comp rehensive Internal Med Start: 09-19-2022 End: 10-09-2022 Periodic preventive med est patient 18-39 yrs Kiya Greer NURSERY HAND Work Phone: [facility] Start: 09-19-2022 Review Kiya Greer NURSERY HAND Work Phone: [facility] Start: 02-06-2022 Non-patient / Non-visit SHORT ORDER COOK-C Sowmya Baldwin SHORT ORDER COOK Work Phone: [facility] Start: 02-05-2022 Non-patient / Non-visit SHORT ORDER COOK-C Sowmya Rodrigueza SHORT ORDER COOK Work Phone: [facility] Start: 02-04-2022 Non-patient / Non-visit SHORT ORDER COOK-C Sowmya Rodrigueza SHORT ORDER COOK Work Phone: [facility] Start: 02-04-2022 End: 02-06-2022 Evaluation and management of inpatient SHORT ORDER COOK-C Sowmya Rodrigueza SHORT ORDER COOK [facility] Start: 02-03-2022 End: 02-03-2022 Patient encounter procedure SHORT ORDER COOK-C Sowmya Rodrigueza SHORT ORDER COOK Work Phone: [facility] Start: 01-27-2022 End: 01-27-2022 Patient encounter procedure SHORT ORDER COOK-C Sowmya Rodrigueza SHORT ORDER COOK Work Phone: [facility] Start: 01-17-2022 End: 01-17-2022 Patient encounter procedure SHORT ORDER COOK-C Sowmya Rodrigueza SHORT ORDER COOK Work Phone: [facility] Start: 01-17-2022 End: 01-17-2022 Patient encounter procedure SHORT ORDER COOK-C Sowmya Rodrigueza SHORT ORDER COOK Work Phone: [facility] Start: 01-11-2022 End: 01-11-2022 Patient encounter procedure SHORT ORDER COOK-C Sowmya Rodrigueza SHORT ORDER COOK Work Phone: [facility] Start: 01-04-2022 Non-patient / Non-visit SHORT ORDER COOK-C Sowmya Rodrigueza SHORT ORDER COOK Work Phone: [facility] Start: 01-04-2022 End: 01-04-2022 Patient encounter procedure SHORT ORDER COOK-C Sowmya Rodrigueza SHORT ORDER COOK Work Phone: [facility]-Cardiovascular Services Start: 01-03-2022 End: 01-03-2022 Patient encounter procedure SHORT ORDER COOK-C Sowmya Ciesa SHORT ORDER COOK Work Phone: [facility]-Laboratory, Specimen Start: 01-02-2022 End: 01-02-2022 Patient encounter procedure SHORT ORDER COOK-C Sowmya Rodrigueza SHORT ORDER COOK Work Phone: [facility] Start: 12-27-2021 End: 12-27-2021 Patient encounter procedure SHORT ORDER COOK-C Sowmya Rodrigueza SHORT ORDER COOK Work Phone: [facility] Start: 12-20-2021 Non-patient / Non-visit SHORT ORDER COOK-C Sowmya Rodrigueza SHORT ORDER COOK Work Phone: [facility] Start: 12-20-2021 End: 12-20-2021 Patient encounter procedure SHORT ORDER COOK-C Sowmya Rodrigueza SHORT ORDER COOK Work Phone: [facility] Start: 12-14-2021 End: 12-14-2021 Patient encounter procedure SHORT ORDER COOK-C Sowmya Rodriguezfranky SHORT ORDER COOK Work Phone: [facility]-Cardi[facility] Start: 12-14-2021 End: 12-14-2021 Emergency department patient visit SHORT ORDER COOK-C Sowmya Rodrigueza SHORT ORDER COOK Work Phone: [facility]-Emergency Department Start: 12-08-2021 End: 12-08-2021 Patient encounter procedure SHORT ORDER COOK-C Sowmya Rodrigueza SHORT ORDER COOK Work Phone: [facility] Start: 11-25-2021 End: 11-25-2021 Patient encounter procedure SHORT ORDER COOK-C Sowmya Rodrigueza SHORT ORDER COOK Work Phone: [facility] Start: 11-08-2021 End: 11-08-2021 Patient encounter procedure SHORT ORDER COOK-C Sowmya Rodrigueza SHORT ORDER COOK Work Phone: [facility] Start: 10-26-2021 End: 10-26-2021 Patient encounter procedure SHORT ORDER COOK-C Sowmya Rodrigueza SHORT ORDER COOK Work Phone: [facility] Start: 09-23-2021 End: 09-23-2021 Patient encounter procedure SHORT ORDER COOK-C Sowmya Baldwin SHORT ORDER COOK Work Phone: [facility] Start: 08-23-2021 End: 08-23-2021 Patient encounter procedure SHORT ORDER COOK-C Sowmya Baldwin SHORT ORDER COOK Work Phone: [facility] Start: 07-26-2021 End: 07-26-2021 Patient encounter procedure SHORT ORDER COOK-C Sowmya Baldwin SHORT ORDER COOK Work Phone: [facility] Start: 06-30-2021 End: 06-30-2021 Patient encounter procedure SHORT ORDER COOK-C Sowmya Baldwin SHORT ORDER COOK Work Phone: [facility]-Laboratory, [facility] Start: 06-30-2021 End: 06-30-2021 Patient encounter procedure SHORT ORDER COOK-C Sowmya Baldwin SHORT ORDER COOK Work Phone: [facility] Start: 08-09-2020 End: 08-09-2020 Patient encounter procedure Rosalino Ramírez LPN [facility]; [facility] Work Phone: Start: 08-09-2020 End: 08-09-2020 Periodic preventive med est patient 18-39 yrs Sowmya Baldwin [facility] Start: 06-16-2019 End: 06-16-2019 Patient encounter procedure Kiya Greer NURSERY HAND Work Phone: [facility] Start: 06-16-2019 End: 06-16-2019 Periodic preventive med est patient 18-39 yrs Sowmya Baldwin [facility] Start: 06-10-2018 End: 06-10-2018 Patient encounter procedure Kiya Greer NURSERY HAND Work Phone: [facility] Start: 06-10-2018 End: 06-10-2018 Periodic preventive med est patient 18-39 yrs Sowmya Denny [facility] Start: 05-23-2017 End: 05-23-2017 Office outpatient visit 15 minutes Sowmya Baldwin [facility] Start: 09-11-2016 End: 09-11-2016 Annotation/Addendum Sowmya Baldwin [facility] Start: 08-25-2016 End: 08-25-2016 Office outpatient new 30 minutes Sowmya Baldwin [facility] Internal Medicine Start: 08-25-2016 End: 08-25-2016 Patient encounter procedure Kiya Greer NURSERY HAND Work Phone: [facility] End: 09-19-2022 Patient encounter procedure Lilian Pineda PERFORATOR TYPIST [facility]; [facility] Work Phone: Procedures Date Procedure Procedure Detail Performing Clinician Start: 01-26-2025 Serologic test for syphilis Kiya Greer SHORT ORDER COOK-C Work Phone: Start: 11-05-2024 Hepatitis C antibody measurement Kiya Greer SHORT ORDER COOK-C Work Phone: Comment on above: Reactive: Presumptive evidence of antibo dies to HCV. Follow CDC recommendations for supplemental testing.Non-Reactive: Antibodies to HCV were not detected; does not exclude the possibility of exposure to HCVReactive Results are presumptive evidence of antibodies to HCV. Follow CDC recommendations for supplemental testing.Order confirmation testing: HCV Quant by PCR testing - HCVPCR lc#[id number] Non Reactive: < 0.8 Equivocal: >/= 0.8 to < 1.0 Reactive: >/= 1.0The CDC requires that a reactive/equivocal HCV antibody result be sent out for confirmation. HCV Quant by PCR testing. Start: 11-05-2024 Rubella IgG measurement Kiya Greer SHORT ORDER COOK-C Work Phone: Comment on above: Antibody Result: InterpretationNon-React marie: Non-ImmuneReactive: ImmuneThe following results were obtained with the [employer] Rubella IgG assay. Results from assays of other manufacturers cannot be used interchangeably. Start: 11-05-2024 Serologic test for syphilis Kiya Greer SHORT ORDER COOK-C Work Phone: Start: 09-29-2024 Urine culture Kiya Greer SHORT ORDER COOK-C Work Phone: Start: 03-20-2022 End: 03-20-2022 Rail Loader Office Visit Report Procedure Note: See Note; NOTES: [facility] [address] [place] [address] OFFICE VISIT Date of Service: 03/20/22 MR#: [id number] Acct: [id number] Name: MARTIN CASTELLANOS Rep #: [id number] : 1995 Provider: Dr. 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: Yes Smoking Status: [...] 41 live - full term Female epidural [facility] Pelon audra Mobley Delivery Date: 02/05/22 Last [...] symptoms Infant Feeding: Breast Menses resumed: No [place] since delivery: No Emotional Support: Yes ROS [...] Signature: Date (if applicable) CC: Kiya Greer [facility] Work Phone: Start: 02-10-2022 End: 02-10-2022 /[facility] Procedure Note: See Note; NOTES: [facility] [address] [place] [address] OFFICE VISIT Date of Service: 02/09/22 MR#: [id number] Acct: [id number] Name: MARTIN CASTELLANOS LUZ Rep #: [id number] : 1995 Provider: MARIANELA vega Age/Sex: 26/F Location: [facility] [place] [place] Status: Signed Intake Vital Signs 02/04/22 07:12 Height 5 ft 4 in Intake Visit Reasons: Feeding Assessment/Nipple Soreness Chief Complaint: assessment, nipple pain Accompanied by: Allergies Penicillins Allergy (Intermediate, Verified 02/04/22 08:35) Hives : Yes Current gender identity: female PFSH [facility] Medical History COVID-19 vaccine series completed Surgical History H/O wisdom tooth extraction Family History Mother Hypertension Grandmother Breast cancer Grandmother Hypertension Social History household members: spouse housing: house 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 [place] [address] OFFICE VISIT Date of Service: 02/03/22 MR#: [id number] Acct: [id number] Name: MARTIN CASTELLANOS Rep #: [id number] : 1995 Provider: Dr. 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 [place] [address] OFFICE VISIT Date of Service: 01/27/22 MR#: [id number] Acct: [id number] Name: MARTIN CASTELLANOS Rep #: [id number] : 1995 Provider: Dr. 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: Yes Smoking Status: [...] Signature: Date (if applicable) CC: Kiya Greer NURSERY HAND Work Phone: Start: 01-17-2022 Ultrasound scan for growth SHORT ORDER COOK-C Sowmya Rodriguezfranky MARIANELA Work Phone: Start: 01-17-2022 End: 01-18-2022 OB Limited With [facility]ometric[facility] Procedure Note: See Note; NOTES: [facility] Imaging Services [address] [place] [address] OB Limited With Biometrics MR#: [id number] Acct: [id number] Name: MARTIN CASTELLANOS Rep #: [id number] : 1995 F 26 From: Levi Portillo MD PCP: LUCINDA Wesley Status: REG CLI Study: OB Limited With Biometrics Date of Exam: 01/17 Exam# [id number] Ordering Dr: Dorothy Lee STUDY: SECOND AND [...] CC: LUCINDA Greer; Dr. Dorothy Lee MD Gravel Roofer: Signed Kiya Greer [facility] Work Phone: Start: 01-17-2022 End: 01-17-2022 Rail Loader Office Visit Report Comments: See Note; NOTES: [facility]'s [address] [place] [address] OFFICE VISIT Date of Service: 01/17/22 MR#: [id number] Acct: [id number] Name: MARTIN CASTELLANOS Rep #: [id number] : 1995 Provider: Dr. 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 [place] [address] OFFICE VISIT Date of Service: 01/11/22 MR#: [id number] Acct: [id number] Name: MARTIN CASTELLANOS Rep #: [id number] : 1995 Provider: Dr. 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 [address] Echo Complete 01/04/22 1102 MR#: [id number] Acct: [id number] Name: MARTIN CASTELLANOS Rep #: [id number] : 1995 26 From: Kirk Lemon MD Attending Dr: Dr. Kirk Lemon MD Status: FAVIO RODRIGUEZ Ordering Dr: Kirk Lemon MD Date: 01/04/22 Location: [facility] Sex: F C Admitted: Reason For Study: [...] 01/04/22 1619 Date Kirk Lemon MD CC: SHORT ORDER COOK-C Kiya Greer; Dr. Kirk Lemon MD Date Dictated: 01/04/22 1102 Date Transcribed: 01/04/221618 Gravel Roofer: Signed Kiya Greer CNP Work Phone: Start: 01-02-2022 End: 01-02-2022 Rail Loader Office Visit Report Comments: See Note; NOTES: [facility] [address] [place] [address] OFFICE VISIT Date of Service: 01/02/22 MR#: [id number] Acct: [id number] Name: MARTIN CASTELLANOS Rep #: [id number] : 1995 Provider: Dr. 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 [place] [address] OFFICE VISIT Date of Service: 12/27/21 MR#: [id number] Acct: [id number] Name: MARTIN CASTELLANOS Rep #: [id number] : 1995 Provider: Dr. 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: Yes Smoking Status: [...] system Z82.79 tachycardia CPT Codes Non-Stress Test (47183) Assessment and Plan Assessment and Plan (1) [...] Signature: Date (if applicable) CC: Kiya Greer NURSERY HAND Work Phone: Start: 12-14-2021 End: 12-17-2021 12 Lead EKG Comments: See Note; NOTES: [facility] [address] [place] [address] 12 Lead EKG 12/14/21 1106 MR#: [id number] Acct: [id number] Name: MARTIN CASTELLANOS Rep #: [id number] : 1995 From: Kristopher Castillo MD Attending [...] normal ECG Confirmed by FIOR URBINA, KRISTOPHER ([id number]), editor trade journal ANGELA HSU ([id number]) on 12/17/2021 9:42:28 AM Referred By: John Confirmed By:KRISTOPHER CASTILLO MD 12/17/21 0942 Date Kristopher Castillo MD CC: KARINAC Sowmya Baldwin; Dr. Kristopher Lopez MD Signed Kiya Greer CNP Work Phone: Start: 12-14-2021 End: 12-14-2021 Emergency Department Summary Comments: See Note; NOTES: [facility] [address] [place] [address] Emergency Department Summary 12/14/21 MR#: [id number] Acct: [id number] Name: MARTIN CASTELLANOS Rep #: [id number] : 1995 From: Kristopher Lopez MD PCP: [...] and otherwise she has no other symptoms. 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 I talked to MANAGER LOSS PREVENTION, Dr. Palomo Sloan as well as Dr. [...] 75.7 H Lymph % (Auto) 15.3 L Beaver % (Auto) 6.1 Eos % (Auto) 0.5 [...] Clarity Clear Urine pH 6.5 Ur Specific [place] 1.010 Urine Protein Negative Urine Glucose (UA) [...] Care Provider: Sowmya Baldwin NP Referrals: Kristopher aCstillo MD [STAFF PHYSICIAN] - 3-5 Days Dorothy Lee MD [STAFF PHYSICIAN] - 3-5 Days Sowmya Baldwin NP, SHORT ORDER COOK-C [Primary Care Provider] - Disposition Disposition: Home, Self Care What to do if you have Problems For any increased pain, shortness of breath, bleeding, nausea or vomiting, chest pain, or any unexpected problems, contact your Primary Care Provider. Call [facility] ([phone]) or report to the closest Emergency Room. Call 911 if necessary. 12/14/21 1256 <Electronically signed by Kristopher Lopez MD> Cosigner Signature (if applicable): CC: SHORT ORDER COOKJuanita Baldwin Signed Sowmya Baldwin Work Phone: Start: 12-08-2021 End: 12-08-2021 Rail Loader Office Visit Report Comments: See Note; NOTES: [facility] [address] [place] [address] OFFICE VISIT Date of Service: 12/08/21 MR#: [id number] Acct: [id number] Name: MARTIN CASTELLANOS Rep #: [id number] : 1995 Provider: Dr. 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 [place] [address] OFFICE VISIT Date of Service: 11/25/21 MR#: [id number] Acct: [id number] Name: MARTNI CASTELLANOS Rep #: [id number] : 1995 Provider: Dr. 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 [address] [place] [address] OFFICE VISIT Date of Service: 11/08/21 MR#: [id number] Acct: [id number] Name: MARTIN CASTELLANOS Rep #: [id number] : 1995 Provider: Dr. 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 [place] [address] OFFICE VISIT Date of Service: 09/23/21 MR#: [id number] Acct: [id number] Name: MARTIN CASTELLANOS Rep #: [id number] : 1995 Provider: Dr. 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 [place] [address] OFFICE VISIT Date of Service: 08/23/21 MR#: [id number] Acct: [id number] Name: MARTIN CASTELLANOS Rep #: [id number] : 1995 Provider: Dr. 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 [place] [address] OFFICE VISIT Date of Service: 07/26/21 MR#: [id number] Acct: [id number] Name: MARTIN CASTELLANOS Rep #: [id number] : 1995 Provider: Dr. 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 [place] [address] OFFICE VISIT Date of Service: 06/30/21 MR#: [id number] Acct: [id number] Name: MARTIN CASTELLANOS Rep #: [id number] : 1995 Provider: Dr. 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 [facility] book offered to patient. [...] Work Phone: Group B Streptococcu s Culture SHORT ORDER COOK-C Sowmya Baldwin SHORT ORDER COOK Work Phone: Viral antigen assay SHORT ORDER COOK-C Prema Baldwin SHORT ORDER COOK Work Phone: Plan of Treatment Date Care Activity Detail Author Start: 04-06-2025 Patient encounter procedure Registered Clinical -Laboratory Specimen Work Phone: Start: 04-06-2025 End: 04-06-2025 Patient encounter procedure [facility] Work Phone: Start: 04-06-2025 Group B Streptococcus Culture Group B Streptococcus Culture [facility] Start: 04-06-2025 Streptococcus agalactiae [Presence] in Unspecified specimen by Organism specific culture [facility] Start: 01-26-2025 CBC W Auto Differential panel - Blood [facility] Start: 01-26-2025 Measurement of glucose 2 hours after glucose challenge for glucose tolerance test [facility] Start: 01-26-2025 Serologic test for syphilis [facility] Start: 01-26-2025 [facility] Start: 11-05-2024 CBC W Auto Differential panel - Blood [facility] Start: 11-05-2024 Hepatitis C antibody measurement [facility] Start: 11-05-[address] [facility] Start: 11-05-2024 Serologic test for syphilis [facility] Start: 11-05-2024 [facility] Start: 09-19-2022 Procedure Education Eprescribed prescriptions (G8553) [facility] Work Phone: Start: 09-19-2022 Provider Instructions for Treatment Follow up as needed [facility] Work Phone: Start: 02-06-2022 Patient discharge [facility] Work Phone: Start: 02-05-2022 Administration of medication [facility] Work Phone: Start: 02-05-2022 Application of ice collar, cap or bag [facility] Work Phone: Start: 02-05-[address] [facility] Work Phone: Start: 02-05-2022 Introduction of urinary catheter [facility] Work Phone: Start: 02-05-2022 Measuring intake and output [facility] Work Phone: Start: 02-05-2022 Notification of physician [facility] Work Phone: Start: 02-05-2022 Procedure discontinued [facility] Work Phone: Start: 02-05-2022 Provision of activity privileges [facility] Work Phone: Start: 02-05-2022 Vital signs measurements [facility] Work Phone: Start: 02-05-2022 [facility] Work Phone: Start: 02-04-2022 Admission procedure [facility] Work Phone: Start: 12-14-2021 Ambulatory ECG [facility] Work Phone: Start: 08-09-2020 Procedure Education Eprescribed prescriptions (G8553) [facility] Work Phone: Start: 08-09-2020 Provider Instructions for Treatment [facility] Work Phone: Start: 08-09-2020 Hpv, dna, amp probe HPV Auto Reflex PAP (94092) [facility] Work [...] streptococcus group a Rapid Strep Test, Office (70301) [facility] Work Phone: Start: 05-23-2017 S. pyogenes Ag IA Ql (Unsp spec) Rapid Strep Test, Office (95501) [facility] Work Phone: Start: 08-25-2016 Provider Instructions for Treatment [facility] Work Phone: Start: 08-25-2016 Cytp c/v auto thin lyr prepj scr mnl rescr phys Pap - GC Chlamydia (30224) [facility] Work Phone: Beta-hemolytic Streptococcus culture [facility] CBC W Auto Different ial panel - Blood [facility] Erythrocyte mean corpuscular volume determination [facility] Erythrocyte mean corpuscular volume determination [facility] Hematocrit [Volume Fraction] of Blood [facility] Hematocrit [Volume Fraction] of Blood [facility] Hemoglobin [Mass/vol ume] in Blood [facility] Hemoglobin [Mass/vol ume] in Blood [facility] Hepatitis B virus mcclelland rface Ag [Presence] in Serum [facility] Hepatitis C antibody measurement [facility] Leukocytes [#/volume ] in Blood [facility] Leukocytes [#/volume ] in Blood [facility] Mean corpuscular hemoglobin concentration determination [facility] Mean corpuscular hemoglobin concentration determination [facility] Mean corpuscular hemoglobin determination [facility] Mean corpuscular hemoglobin determination [facility] Neutrophil count [facility] Neutrophil count [facility] Neutrophil percent differential count [facility] Neutrophil percent differential count [facility] Patient Education [facility] Work Phone: Patient referral [facility] Work Phone: Platelets [#/volume] in Blood [facility] Platelets [#/volume] in Blood [facility] Red blood cell count [facility] Red blood cell count [facility] Red cell distributio n width determination [facility] Red cell distributio n width determination [facility] Rubella IgG measurement [facility] Serologic test for syphilis [facility] Work Phone: [facility] Work Phone: [facility] Immunizations Immunization Date Immunization Notes Care Provider Junior storm 02-11-2025 tetanus toxoid, redu miller diphtheria toxoid, and acellular pertussis vaccine, adsorbed Kiya Greer SHORT ORDER COOK-C Work Phone: [facility] 10-26-2021 tetanus toxoid, redu miller diphtheria toxoid, and acellular pertussis vaccine, adsorbed SHORT ORDER COOK-C Sowmya Baldwin NP Work Phone: [facility] 10-26-2021 diphtheria, tetanus toxoids and acellular pertussis vaccine, unspecified formulation SHORT ORDER COOK-C Sowmya Baldwin SHORT ORDER COOK Work Phone: [facility] Work Phone: Payers Date Payer Category Payer Private Health Insurance [id number] 2024 Private Health Insurance [id number] 2024 Unknown [id number] 2024 Self-pay [id number] 2022 Unknown [id number] 2020 Unknown [id number] 1995 Unknown [id number] 2.16.84 0.1.191322.3.579.2.716 1995 Unknown [id number] 2.16. 840.1.932415.3.579.2.479 1995 Unknown [id number] 2.16. 840.1.672542.3.579.2.479 Unknown Unknown [id number] 2.16.8 40.1.563021.3.579.2.462 Unknown [id number] 2.16.8 40.1.872787.3.579.2.462 Unknown [id number] 2.16.8 40.1.858492.3.579.2.462 Unknown [id number] 2.16.8 40.1.137457.3.579.2.462 Unknown [id number] 2.16.8 40.1.062043.3.579.2.462 Unknown [id number] 2.16.8 40.1.063989.3.579.2.462 Unknown [id number] 2.16.8 40.1.711759.3.579.2.462 Unknown [id number] 2.16.8 40.1.548366.3.579.2.462 Unknown [id number] 2.16.8 40.1.031434.3.579.2.462 Unknown [id number] 2.16.8 40.1.578297.3.579.2.462 Unknown [id number] 2.16.8 40.1.252394.3.579.2.462 Unknown [id number] 2.16.8 40.1.318643.3.579.2.462 Unknown [id number] 2.16.8 40.1.728484.3.579.2.462 Unknown [id number] 2.16.8 40.1.211731.3.579.2.462 Unknown [id number] 2.16.8 40.1.920745.3.579.2.462 Unknown [id number] 2.16.8 40.1.613832.3.579.2.462 Unknown [id number] 2.16.8 40.1.318738.3.579.2.462 Unknown [id number] 2.16.8 40.1.253862.3.579.2.462 Unknown [id number] 2.16.8 40.1.259740.3.579.2.462 Unknown [id number] 2.16.8 40.1.868457.3.579.2.462 Social History Date Type Detail Facility Caffeine use Caffeine use [facility] Work Phone: Comment on above: 3 cups coffee daily Living Situation: Living Situation: [facility] Work Phone: Living Situation: Living Situation: [facility] Work Phone: Start: 10-26-2021 End: 02-04-2022 Tobacco smoking status NHIS Unknown if ever smoked [facility] Work Phone: Start: 1995 Sex Assigned At Female W [facility] Living Situation: Living Situation: [facility] Work Phone: Comment on above: one child Start: 09-19-2024 Tobacco smoking status NHIS Never smoked tobacco (finding) [facility] Start: 10-01-2024 Sex Female (finding) [facility] Sex Female [facility] Goals Date Patient Goal Desired Activity /State Mental Status Date Assessment Result Facility 12-14-2021 Cognitive function Level Of Cons ciousness Awake;Alert;Appropriate;Follow s Commands;Responds to vocal stimuli [facility] Work Phone: Clinical Notes 09-29-2024 to 03-23-2025 Note Date & Type Note Facility 03-23-2025 Progress note [facility] 03-09-2025 Progress note [facility] 02-25-2025 Progress note [facility] 02-11-2025 Progress note [facility] 01-26-2025 Progress note [facility] 12-31-2024 Evaluation note Diagnosis Onset Date Resolution [...] Supervision of normal acute April 06 2:13pm [facility] Work Phone: 1(237) 915-600806-23-2025 Evaluation note* Diagnosis Onset Date Resolution Status [...] of normal acute March 09, 2025 9:23am [facility] Work Phone: 1(568) 400-261306-23-2025 Progress [facility] [address] [place] [address], [address] [place] [address] OFFICE VISIT Date of Service: 12/01/24 MR#: [id number] Acct: [id number] Name: MARTIN CASTELLANOS Rep #: [id number] : 1995 Provider: Dr. 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 [employer] pets and animals: Yes pets [...] times per week duration: 30-45 minutes/day juan alberto/caodaism: Holiness seatbelt use: always do you feel safe [...] - full term 8#3oz Female epidu ral [facility] Dorothy Mobley Delivery Date: 02/05/22 Last Updated [...] Cosigner Signature: Date (if applicable) CC: ~ [facility]05-28-2025 Evaluation note* Diagnosis Onset Date Resolution Status [...] normal acut e January 26, 2025 9:03am [facility] Work Phone: 1(320) 640-623105-28-2025 Evaluation note* Diagnosis Onset Date Resolution Status [...] Supervision of normal acute February 11 9:38am [place] [facility] Work Phone: 1(595) 275-494505-28-2025 Evaluation note* Diagnosis Onset Date Resolution Status [...] of normal acute February 25, 2025 9:15am [facility] Work Phone: 1(380) 517-960605-28-2025 Progress [facility] [address] [place] [address], [address] [place] [address] OFFICE VISIT Date of Service: 11/05/24 MR#: [id number] Acct: [id number] Name: MARTIN CASTELLANOS Rep #: [id number] : 1995 Provider: Dr. Marina Mahmood DO Age/Sex: 28/F Location: [facility] Status: Signed Intake Vital Signs 08/27/24 13:56 09/29/24 10:27 11/05/24 08:41 11/05/24 08:44 Height 5 ft 4 in 5 ft 4 in 5 ft 4 in 5 ft 4 in Weight: 179 lb 2 oz BMI 30.7 BP 125/85 H Intake Visit Reasons: 14wk OB Shank Threader Required: No Is patient in pain?: No [...] 1 current occupational status: employed current occupation: [employer] pets and animals: Yes pets [...] times per week duration: 30-45 minutes/day juan alberto/caodaism: Holiness seatbelt use: always do you feel safe [...] - full term 8#3oz Female epidu ral [facility] Dorotyh Mobley Delivery Date: 02/05/22 Last Updated by: [...] Kohli Signature: Date (if applicable) CC: ~ [facility]04-21-2025 Evaluation note* Diagnosis Onset Date Resolution Status Admit Date Anxiety acute September 29 10:06am Depression acute September 29 10:06am History of atony of uterus acute September 29, 2024 10:06am acute September 29 10:06am Supervision of normal acut e September 29, 2024 10:06am [facility] Work Phone: 1(989) 937-128004-21-2025 Evaluation note* Diagnosis Onset Date Resolution Status [...] normal acut e November 05, 2024 8:39am [facility] Work Phone: 1(685) 847-420504-21-2025 Evaluation note* Diagnosis Onset Date Resolution Status [...] normal acut e December 01, 2024 10:07am [facility] Work Phone: 1(405) 144-184504-21-2025 Evaluation note* Diagnosis Onset Date Resolution Status [...] normal acut e December 31, 2024 8:34am [facility] Work Phone: 1(880) 888-449504-21-2025 Evaluation note* Diagnosis Onset Date Resolution Status [...] normal acut e January 26, 2025 9:03am [facility] Work Phone: Evaluation note* Diagnosis [...] Seasonal allergies acute Supervision of normal acute [facility] Work Phone: Evaluation note* Diagnosis Onset [...] Seasonal allergies acute Supervision of normal acute [facility] Work Phone: Evaluation note* Diagnosis Onset [...] of congenital anomaly of cardiovascular system resolved [facility] Work Phone: Evaluation note* Diagnosis Onset [...] Seasonal allergies resolved Supervision of normal resolved [facility] Work Phone: Instructions* Name Dates Details Patient Instructions Indication:Well woman exam (Renamed from Encounter for well woman exam) Start:09-Aug-2020 Instruction Type:Provider Instructions for Treatment How to Access Health Informa tion Online using Patient Portal and [employer] Apps Indication:Well woman exam (Renamed from Encounter [...] Informa tion Online using Patient Portal and [employer] Apps Indication:Well woman exam (Renamed from Encounter [...] Informa tion Online using Patient Portal and [employer] Apps Indication:Well woman exam (Renamed from Encounter [...] Informa tion Online using Patient Portal and [employer] Apps Indication:Well woman exam (Renamed from Encounter [...] Informa tion Online using Patient Portal and [employer] Apps Indication:Well woman exam (Renamed from Encounter [...] Informa tion Online using Patient Portal and [employer] Apps Indication:Well woman exam (Renamed from Encounter [...] Informa tion Online using Patient Portal and [employer] Indication:Nonsmoker Start:19-Sep-2022 Instruction Type:Patient Education Patient Instructions Indication:Well woman exam (Renamed from Encounter for well woman exam) Start:09-Aug-2020 Instruction Type:Provider Instructions for Treatment How to Access Health Informa tion Online using Patient Portal and [employer] Apps Indication:Well woman exam (Renamed from Encounter [...] Informa tion Online using Patient Portal and [employer] Indication:Nonsmoker Start:19-Sep-2022 Instruction Type:Patient Education Patient Instructions [...] Work Phone: progress note Author Rose Man [facility] Note Date/Time November 05, 2024 9:04a [facility] [address], [address] [place] [address] OFFICE VISIT Date of Service: 11/05/24 MR#: [id number] Acct: [id number] Name: MARTIN CASTELLANOS Rep #: [id number] : 1995 Provider: Dr. Marina Mahmood, Age/Sex: 28/F Location: [facility] Status: Signed Intake Vital Signs 08/27/24 13:56 09/29/24 10:27 11/05/24 08:41 11/05/24 08:44 Height 5 ft 4 in 5 ft 4 in 5 ft 4 in 5 ft 4 in Weight: 179 lb 2 oz BMI 30.7 BP 125/85 H Intake Visit Reasons: 14wk OB Shank Threader Required: No Is patient in pain?: No [...] 1 current occupational status: employed current occupation: [employer] pets and animals: Yes pets [...] times per week duration: 30-45 minutes/day juan alberto/caodaism: Holiness seatbelt use: always do you feel safe [...] Cosigner Signature: Date (if applicable) CC: ~ [facility] Work Phone: Progress note Author Dorothy Lee [facility] Note Date/Time December 01, 2024 10:5 5am [facility] [address] [place] [address], [address] [place] [address] OFFICE VISIT Date of Service: 12/01/24 MR#: [id number] Acct: [id number] Name: MARTIN CASTELLANOS Rep #: [id number] : 1995 Provider: Dr. 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 pets and animals: Yes pets [...] times per week duration: 30-45 minutes/day juan alberto/caodaism: Holiness seatbelt use: always do you feel safe [...] - full term 8#3oz Female epidu ral [facility] Dorothy Mobley Delivery Date: 02/05/22 Last Updated [...] Cosigner Signature: Date (if applicable) CC: ~ [facility] Work Phone: Progress note Author Dorothy Lee [facility] Note Date/Time January 26, 2025 10 :02am [facility] [address], [address] [place] [address] OFFICE VISIT Date of Service: 01/26/25 MR#: [id number] Acct: [id number] Name: MARTIN CASTELLANOS Rep #: [id number] : 1995 Provider: Dr. Vishnu Lee MD Age/Sex: 29/F Location: [facility] Status: Signed Intake Vital Signs 12/01/24 10:16 12/31/24 08:38 01/26/25 09:18 Height 5 ft 4 in 5 ft 4 in 5 ft 4 in Weight: 197 lb 2 oz BMI 33.8 BP 131/76 H Intake Visit Reasons: 26 wk ob/glucose Shank Threader Required: No Is patient in pain?: No [...] 1 current occupational status: employed current occupation: [employer] pets and animals: Yes pets [...] times per week duration: 30-45 minutes/day juan alberto/caodaism: Holiness seatbelt use: always do you feel safe [...] - full term 8#3oz Female epidu ral [facility] Dorothy Mobley Delivery Date: 02/05/22 Last Updated [...] Cosigner Signature: Date (if applicable) CC: ~ [facility] Work Phone: Progress note Author Rose Man [facility] Note Date/Time February 11, 2025 10:14am [facility] [address], [address] [place] [address] OFFICE VISIT Date of Service: 02/11/25 MR#: [id number] Acct: [id number] Name: MARTIN CASTELLANOS Rep #: [id number] : 1995 Provider: Dr. Marina Mahmood, Age/Sex: 29/F Location: [facility] Status: Signed Intake Vital Signs 12/01/24 10:16 01/26/25 09:18 02/11/25 09:39 02/11/25 09:41 Height 5 ft 4 in 5 ft 4 in 5 ft 4 in 5 ft 4 in Weight: 200 lb 2 oz BMI 34.3 BP 127/80 H Intake Visit Reasons: 28 wk ob Shank Threader Required: No Is patient in pain?: No [...] 1 current occupational status: employed current occupation: [employer] pets and animals: Yes pets [...] times per week duration: 30-45 minutes/day juan alberto/caodaism: Holiness seatbelt use: always do you feel safe [...] - full term 8#3oz Female epidu ral [facility] Dorothy Mobley Delivery Date: 02/05/22 Last Updated [...] Performing Provider: Rose Mahmood DO Performing Location: [facility] Administered by: Angelina Blanco on 02/11/25 09:56 Dose Route Admin Location Dispensed Lot Number Expiration Date [facility] 0.5 mL IM Right Deltoid 0.5 mL [id number] 02/08/27 97703-864-15 JOSE [employer]PASTE[employer] VIS Given Date VIS Provided [...] Bhupinderignjoe Signature: Date (if applicable) CC: ~ [facility] Work Phone: Progress note Author Dorothy Lee [facility] Note Date/Time February 25, 2025 10:19am [facility] [address], [address] [place] [address] OFFICE VISIT Date of Service: 02/25/25 MR#: [id number] Acct: [id number] Name: MARTIN CASTELLANOS Rep #: [id number] : 1995 Provider: Dr. Vishnu Lee MD Age/Sex: 29/F Location: [facility] Status: Signed Intake Vital Signs 12/31/24 08:38 02/11/25 09:41 02/25/25 09:45 Height 5 ft 4 in 5 ft 4 in 5 ft 4 in Weight: 201 lb 4 oz BMI 34.5 BP 131/82 H Intake Visit Reasons: 30 WK OB Shank Threader Required: No Is patient in pain?: No [...] 1 current occupational status: employed current occupation: [employer] pets and animals: Yes pets [...] times per week duration: 30-45 minutes/day juan alberto/caodaism: Holiness seatbelt use: always do you feel safe [...] - full term 8#3oz Female epidu ral [facility] Dorothy Mobley Delivery Date: 02/05/22 Last Updated [...] Cosigner Signature: Date (if applicable) CC: ~ [facility] Work Phone: Progress note Author Rose Man [facility] Note Date/Time March 09, 2025 10:07am [facility] [address], [address] [place] [address] OFFICE VISIT Date of Service: 03/09/25 MR#: [id number] Acct: [id number] Name: MARTIN CASTELLANOS Rep #: [id number] : 1995 Provider: Dr. Marina Mahmood DO Age/Sex: 29/F Location: [facility] Status: Signed Intake Vital Signs 12/31/24 08:38 02/25/25 09:45 03/09/25 09:27 Height 5 ft 4 in 5 ft 4 in 5 ft 4 in Weight: 203 lb 6 oz BMI 34.9 BP 119/79 Intake Visit Reasons: 32 WK OB Chief Complaint: 32wk OB Shank Threader Required: No Is patient in pain?: No [...] 1 current occupational status: employed current occupation: [employer] pets and animals: Yes pets [...] times per week duration: 30-45 minutes/day juan alberto/caodaism: Holiness seatbelt use: always do you feel safe [...] - full term 8#3oz Female epidu ral [facility] Dorothy Jesus [employer] Delivery Date: 02/05/22 Last [...] Cosigner Signature: Date (if applicable) CC: ~ [facility] Work Phone: Progress note Author Suzanne Salazar [facility] Note Date/Time March 23, 2025 1 :54pm [facility] [address] [place] [address], [address] [place] [address] OFFICE VISIT Date of Service: 03/23/25 MR#: [id number] Acct: [id number] Name: MARTIN CASTELLANOS Rep #: [id number] : 1995 Provider: LUCINDA Salazar Age/Sex: 29/F Location: [facility] Status: Signed Intake Vital Signs 02/11/25 09:41 03/09/25 09:27 03/23/25 13:40 Height 5 ft 4 in 5 ft 4 in 5 ft 4 in Weight: 207 lb 1 oz BMI 35.5 BP 112/81 H Intake Visit Reasons: 34wk ob Shank Threader Required: No Is patient in pain?: No [...] 1 current occupational status: employed current occupation: [employer] pets and animals: Yes pets [...] times per week duration: 30-45 minutes/day juan alberto/caodaism: Holiness seatbelt use: always do you feel safe [...] - full term 8#3oz Female epidu ral [facility] Dorothy Mobley Delivery Date: 02/05/22 Last Updated [...] Continue routine care and follow up. 03/23/25 [id number] <Electronically signed by Suzanne saldana [employer] COOK-C> Date _ Suzanne Salazar [employer]-C Cosigner Signature: Date (if applicable) CC: ~ [facility] Work Phone: Reason for referral (narrative)No reason for referral information availableWPremier Health [facility] Work Phone: Family History No Family History [...] Informa tion Online using Patient Portal and [employer] Apps Indication:Well woman exam (Renamed from [...] December 14, 2021 1 1:16am Power of Drill Sergeant No December 14, 2021 11:16am Advance Directive Response Recorded Date/ Time Living Will No February 04 7:47am Power of Drill Sergeant No February 04 022 7:47am Chief Complaint [...] 11, 2025 9:38am Supervision of normal [facility] 2024 9:38am Anxiety February [...] February 11, 2025 9:38am Supervision of normal [facility] 2024 9:38am Anxiety February 25, 2025 9:15am Depression February 25, 2025 9:15am Family history of transposition of great vessels February 25, 2025 9:15am History of atony of uterus Se ptember 2024 9:15am February 25, 2025 9:15am [facility] 9:[facility] Anxiety March 09, 2025 9:23am Depression March 09, 2025 9:23am Family history of transposition of great vessels March 09, 2025 9:23am History of atony of uterus Se ptember 2024 9:23am March 09, 2025 9:23am [facility] 9:23am Chief Complaint Admit Date [...] February 11, 2025 9:38am Supervision of normal [facility] r 2024 9:38am Anxiety February 25, 2025 [...] section and content) DATE CREATED AUTHOR 07/15/2021 [facility] DATE CREATED AUTHOR AUTHOR'S ORGANIZ ATION 09/19/[address] [facility] DATE CREATED AUTHOR AUTHOR'S ORGANIZ ATION 07/23/2024 [facility] DATE CREATED AUTHOR AUTHOR'S ORGANIZ ATION 12/18/2024 [facility] DATE CREATED AUTHOR AUTHOR'S ORGANIZ ATION 04/21/2025 [facility] Goals (unrecognized section and content) Type Care [...] Member Role Status Dates Kiya Percy , [employer]-C Primary Care Provider Active Start: November 05, 2024 End: November 05, 2024 Dr. Rose Mahmood DO Attending Provider Activ e Start: November 05, 2024 End: November 05, 2024 Dr. Rose Mahmood DO Referring Provider Activ e Start: November 05, 2024 End: November 05, 2024 Team Status: Inactive Member Role Status Dates Kiya Greer , [employer]-C Primary Care Provider Active Start: December 01, 2024 End: December 01, 2024 Kiya Greer , [employer]-C Referring Provider Active Start: December 01, 2024 End: December 01, 2024 Dr. Dorothy Lee MD Attending Provider Active Start: December 01, 2024 End: December 01, 2024 Team Status: Active Member Role/Relationship Status Dates Kiya Greer , [employer]-C Primary Care Provider Active Team Status: Inactive Member Role/Relationship Status Dates Kiya Greer , [employer]-C Primary Care Provider Active Start: September 29, 2024 End: September 29, 2024 Kiya Greer [employer]-C Referring Provider Active Start: September 29, 2024 End: September 29, 2024 Dr. Dorothy Lee MD Attending Provider Active Start: September 29, 2024 End: September 29, 2024 Team Status: Inactive Member Role/Relationship Status Dates Kiya Greer [employer]-C Primary Care Provider Active Start: September 29, 2024 End: September 29, 2024 Dr. Dorothy Lee MD Attending Provider Active Start: September 29, 2024 End: September 29, 2024 Dr. Dorothy Lee MD Referring Provider Active Start: September 29, 2024 End: September 29, 2024 Team Status: Inactive Member Role/Relationship Status Dates Kiya Greer , [employer]-C Primary Care Provider Active Start: November 05, 2024 End: November 05, 2024 Kiya Greer [employer]-C Referring Provider Active Start: November 05, 2024 End: November 05, 2024 Dr. Rose Mahmood DO Attending Provider Activ e Start: November 05, 2024 End: November 05, 2024 Team Status: Inactive Member Role/Relationship Status Dates Kiya Greer , [employer]-C Primary Care Provider Active Start: November 05, 2024 End: November 05, 2024 Dr. Rose Mahmood DO Attending Provider Activ e Start: November 05, 2024 End: November 05, 2024 Dr. Rose Mahmood DO Referring Provider Activ e Start: November 05, 2024 End: November 05, 2024 Team Status: Inactive Member Role/Relationship Status Dates Kiya Greer [employer]-C Primary Care Provider Active Start: December 01, 2024 End: December 01, 2024 Kiya Greer [employer]-C Referring Provider Active Start: December 01, 2024 End: December 01, 2024 Dr. Dorothy Lee MD Attending Provider Active Start: December 01, 2024 End: December 01, 2024 Team Status: Inactive Member Role/Relationship Status Dates Kiya Greer [employer]-C Primary Care Provider Active Start: December 31, 2024 End: December 31, 2024 Kiya Greer [employer]-C Referring Provider Active Start: December 31, 2024 End: December 31, 2024 Dr. Rose Mahmood DO Attending Provider Activ e Start: December 31, 2024 End: December 31, 2024 Team Status: Inactive Member Role/Relationship Status Dates Kiya Greer [employer]-C Primary Care Provider Active Start: January 26, 2025 End: January 26, 2025 Kiya Greer [employer]-C Referring Provider Active Start: January 26, 2025 End: January 26, 2025 Dr. Dorothy Lee MD Attending Provider Active Start: January 26, 2025 End: January 26, 2025 Team Status: Active Member Role/Relationship Status Dates Kiya Greer [employer]-C Primary Care Provider Active Start: January 26, 2025 Ranjana Neil CNM Attending Provider Active S tart: January 26, 2025 Ranjana Neil CNM Referring Provider Active S tart: January 26, 2025 Team Status: Inactive Member Role/Relationship Status Dates Kiya Greer [employer]-C Primary Care Provider Active Start: November 05, 2024 End: November 05, 2024 Kiya Greer [employer]-C Referring Provider Active Start: November 05, 2024 End: November 05, 2024 Dr. Rose Mahmood DO Attending Provider Activ e Start: November 05, 2024 End: November 05, 2024 Team Status: Inactive Member Role/Relationship Status Dates Kiya Greer , [employer]-C Primary Care Provider Active Start: November 05, 2024 End: November 05, 2024 Dr. Rose Mahmood , Attending Provider Activ e Start: November 05, 2024 End: November 05, 2024 Dr. Rose Mahmood , Referring Provider Activ e Start: November 05, 2024 End: November 05, 2024 Team Status: Inactive Member Role/Relationship Status Dates Kiya Greer , [employer]-C Primary Care Provider Active Start: December 01, 2024 End: December 01, 2024 Kiya Greer [employer]-C Referring Provider Active Start: December 01, 2024 End: December 01, 2024 Dr. Dorothy Lee MD Attending Provider Active Start: December 01, 2024 End: December 01, 2024 Team Status: Inactive Member Role/Relationship Status Dates Kiya Greer , [employer]-C Primary Care Provider Active Start: December 31, 2024 End: December 31, 2024 Kiya Greer , [employer]-C Referring Provider Active Start: December 31, 2024 End: December 31, 2024 Dr. Rose Mahmood , Attending Provider Activ e Start: December 31, 2024 End: December 31, 2024 Team Status: Inactive Member Role/Relationship Status Dates Kiya Greer , [employer]-C Primary Care Provider Active Start: January 26, 2025 End: January 26, 2025 Kiya Greer [employer]-C Referring Provider Active Start: January 26, 2025 End: January 26, 2025 Dr. Dorothy Lee MD Attending Provider Active Start: January 26, 2025 End: January 26, 2025 Team Status: Inactive Member Role/Relationship Status Dates Kiya Greer [employer]-C Primary Care Provider Active Start: January 26, 2025 End: January 26, 2025 Ranjana Neil CNM Attending Provider Active S tart: January 26, 2025 End: January 26, 2025 Ranjana Neil CNM Referring Provider Active S tart: January 26, 2025 End: January 26, 2025 Team Status: Inactive Member Role/Relationship Status Dates Kiya Greer , [employer]-C Primary Care Provider Active Start: February 11, 2025 End: February 11, 2025 Kiya Greer [employer]-C Referring Provider Active Start: February 11, 2025 End: February 11, 2025 Dr. Rose Mahmood , Attending Provider Activ e Start: February 11, 2025 End: February 11, 2025 Team Status: Active Member Role/Relationship Status Dates Kiya Greer [employer]-C Primary care physician Active Team Status: Inactive Member Role/Relationship Status Dates Kiya Greer [employer]-C Primary care physician Active Start: November 05, 2024 End: November 05, 2024 Kiya Greer [employer]-C Referring Provider Active Start: November 05, 2024 End: November 05, 2024 Dr. Rose Mahmood , Attending physician Acti ve Start: November 05, 2024 End: November 05, 2024 Team Status: Inactive Member Role/Relationship Status Dates Kiya Greer [employer]-C Primary care physician Active Start: November 05, 2024 End: November 05, 2024 Dr. Rose Mahmood , Attending physician Acti ve Start: November 05, 2024 End: November 05, 2024 Dr. Rose Mahmood , Referring Provider Activ e Start: November 05, 2024 End: November 05, 2024 Team Status: Inactive Member Role/Relationship Status Dates Kiya Greer [employer]-C Primary care physician Active Start: December 01, 2024 End: December 01, 2024 Kiya Greer [employer]-C Referring Provider Active Start: December 01, 2024 End: December 01, 2024 Dr. Dorothy Lee MD Attending physician Active Start: December 01, 2024 End: December 01, 2024 Team Status: Inactive Member Role/Relationship Status Dates Kiya Greer [employer]-C Primary care physician Active Start: December 31, 2024 End: December 31, 2024 Kiya Greer [employer]-C Referring Provider Active Start: December 31, 2024 End: December 31, 2024 Dr. Rose Mahmood , Attending physician Acti ve Start: December 31, 2024 End: December 31, 2024 Team Status: Inactive Member Role/Relationship Status Dates Kiya Greer [employer]-C Primary care physician Active Start: January 26, 2025 End: January 26, 2025 Kiya Greer [employer]-C Referring Provider Active Start: January 26, 2025 End: January 26, 2025 Dr. Dorothy Lee MD Attending physician Active Start: January 26, 2025 End: January 26, 2025 Team Status: Inactive Member Role/Relationship Status Dates Kiya Greer [employer]-C Primary care physician Active Start: January 26, 2025 End: January 26, 2025 Ranjana Neil CNM Attending physician Active Start: January 26, 2025 End: January 26, 2025 Ranjana Neil CNM Referring Provider Active S tart: January 26, 2025 End: January 26, 2025 Team Status: Inactive Member Role/Relationship Status Dates Kiya Greer [employer]-C Primary care physician Active Start: February 11, 2025 End: February 11, 2025 Kiya Greer , [employer]-C Referring Provider Active Start: February 11, 2025 End: February 11, 2025 Dr. Rose Mahmood DO Attending physician Active Start: February End: February 11, 2025 Team Status: Inactive Member Role/Relationship Status Dates Kiya Greer [employer]-C Primary care physician Active Start: February 25, 2025 End: February 25, 2025 Kiya Greer [employer]-C Referring Provider Active Start: February 25, 2025 End: February 25, 2025 Dr. Dorothy Lee MD Attending physician Active Start: February 25, 2025 End: February 25, 2025 Team Status: Inactive Member Role/Relationship Status Dates Kiya Greer [employer]-C Primary care physician Active Start: December 01, 2024 End: December 01, 2024 Kiya Greer SHORT ORDER COOK-C Referring Provider Active Start: December 01, 2024 End: December 01, 2024 Dr. Dorothy Lee MD Attending physician Active Start: December 01, 2024 End: December 01, 2024 Team Status: Inactive Member Role/Relationship Status Dates Kiya Greer SHORT ORDER COOK-C Primary care physician Active Start: December 31, 2024 End: December 31, 2024 Kiya Greer SHORT ORDER COOK-C Referring Provider Active Start: December 31, 2024 End: December 31, 2024 Dr. Rose Mahmood DO Attending physician Acti ve Start: December 31, 2024 End: December 31, 2024 Team Status: Inactive Member Role/Relationship Status Dates Kiya Greer SHORT ORDER COOK-C Primary care physician Active Start: January 26, 2025 End: January 26, 2025 Kiya Greer SHORT ORDER COOK-C Referring Provider Active Start: January 26, 2025 End: January 26, 2025 Dr. Dorothy Lee MD Attending physician Active Start: January 26, 2025 End: January 26, 2025 Team Status: Inactive Member Role/Relationship Status Dates Kiya Greer SHORT ORDER COOK-C Primary care physician Active Start: January 26, 2025 End: January 26, 2025 Ranjana Neil CNM Attending physician Active Start: January 26, 2025 End: January 26, 2025 Ranjana Neil CNM Referring Provider Active S tart: January 26, 2025 End: January 26, 2025 Team Status: Inactive Member Role/Relationship Status Dates Kiya Grere SHORT ORDER COOK-C Primary care physician Active Start: February 11, 2025 End: February 11, 2025 Kiya Greer SHORT ORDER COOK-C Referring Provider Active Start: February 11, 2025 End: February 11, 2025 Dr. Rose Mahmood DO Attending physician Active Start: February End: February 11, 2025 Team Status: Inactive Member Role/Relationship Status Dates Kiya Greer SHORT ORDER COOK-C Primary care physician Active Start: February 25, 2025 End: February 25, 2025 Kiya Greer SHORT ORDER COOK-C Referring Provider Active Start: February 25, 2025 End: February 25, 2025 Dr. Dorothy Lee MD Attending physician Active Start: February 25, 2025 End: February 25, 2025 Team Status: Inactive Member Role/Relationship Status Dates Kiya Greer SHORT ORDER COOK-C Primary care physician Active Start: March 09, 2025 End: March 09, 2025 Kiya Greer SHORT ORDER COOK-C Referring Provider Active Start: March 09, 2025 End: March 09, 2025 Dr. Rose Mahmood DO Attending physician Active Start: February End: March 09, 2025 Team Status: Inactive Member Role/Relationship Status Dates Kiya Greer SHORT ORDER COOK-C Primary care physician Active Start: December 31, 2024 End: December 31, 2024 Kiya Greer SHORT ORDER COOK-C Referring Provider Active Start: December 31, 2024 End: December 31, 2024 Dr. Rose Mahmood DO Attending physician Acti ve Start: December 31, 2024 End: December 31, 2024 Team Status: Inactive Member Role/Relationship Status Dates Kiya Greer SHORT ORDER COOK-C Primary care physician Active Start: January 26, 2025 End: January 26, 2025 Kiya Greer SHORT ORDER COOK-C Referring Provider Active Start: January 26, 2025 End: January 26, 2025 Dr. Dorothy Lee MD Attending physician Active Start: January 26, 2025 End: January 26, 2025 Team Status: Inactive Member Role/Relationship Status Dates Kiya Greer SHORT ORDER COOK-C Primary care physician Active Start: January 26, 2025 End: January 26, 2025 Ranjana Neil CNM Attending physician Active Start: January 26, 2025 End: January 26, 2025 Ranjana Neil CNM Referring Provider Active S tart: January 26, 2025 End: January 26, 2025 Team Status: Inactive Member Role/Relationship Status Dates Kiya Greer SHORT ORDER COOK-C Primary care physician Active Start: February 11, 2025 End: February 11, 2025 Kiya Greer SHORT ORDER COOK-C Referring Provider Active Start: February 11, 2025 End: February 11, 2025 Dr. Rose Mahmood DO Attending physician Active Start: February End: February 11, 2025 Team Status: Inactive Member Role/Relationship Status Dates Kiya Greer SHORT ORDER COOK-C Primary care physician Active Start: February 25, 2025 End: February 25, 2025 Kiya Greer SHORT ORDER COOK-C Referring Provider Active Start: February 25, 2025 End: February 25, 2025 Dr. Dorothy Lee MD Attending physician Active Start: February 25, 2025 End: February 25, 2025 Team Status: Inactive Member Role/Relationship Status Dates Kiya Greer SHORT ORDER COOK-C Primary care physician Active Start: March 09, 2025 End: March 09, 2025 Kiya Greer SHORT ORDER COOK-C Referring Provider Active Start: March 09, 2025 End: March 09, 2025 Dr. Rose Mahmood DO Attending physician Active Start: February End: March 09, 2025 Team Status: Inactive Member Role/Relationship Status Dates Kiya Greer SHORT ORDER COOK-C Primary care physician Active Start: March 23, 2025 End: March 23, 2025 Kiya Greer SHORT ORDER COOK-C Referring Provider Active Start: March 23, 2025 End: March 23, 2025 Suzanne Salazar NP SHORT ORDER COOK-C Attending physician Active Start: March 23, 2025 End: March 23, 2025 Team Status: Inactive Member Role/Relationship Status Dates Kiya Gerer NP-C Primary care physician Active Start: April 06, 2025 End: April 06, 2025 Kiya Greer SHORT ORDER COOK-C Referring Provider Active Start: April 06, 2025 End: April 06, 2025 Dr. Rose Mahmood DO Attending physician Acti ve Start: April 06, 2025 End: April 06, 2025 Team Status: Active Member Role/Relationship Status Dates Kiya Greer SHORT ORDER COOK-C Primary care physician Active Start: April 06, [...] BE BASED ON THE PRIMARY CLINICAL RECORDS. [employer] provides no warranty or guarantee of the accuracy or completeness of information in this document.
[2025-04-26] MEDS: Lactated Ringers 1,000 ML 50 ML IV (08:52)
[2025-04-26] MEDS: Lactated Ringers 1,000 ML 999 ML IV (08:52)
[2025-04-26] MEDS: 0.9% Saline Lock 10 ML Syringe IV ×2 (08:53→10:29)
[2025-04-26 09:03] LABS: Hematocrit 35.4 % (37-47); Hemoglobin 11.8 g/dL (12.0-15.0); Immature Granulocytes Count 0.160 X10^3/uL (0.0-0.0); Mean Corp Hgb Conc 33.3 g/dL (32-36); Mean Corpuscular Volume 90.8 fL (81-99); Mean Platelet Vol. 11.0 fl (6.2-12.0); NRBC Flagged by Analyzer 0 % (0-5); Platelet Count 168 K/mm3 (150-450); RBC Distribution Width CV 14.6 % (11.6-14.6); RBC Distribution Width SD 48.1 fl (35.1-43.9); Red Blood Count 3.90 M/mm3 (4.2-5.4); White Blood Count 11.0 K/mm3 (4.4-11.0)
[2025-04-26] MEDS: fentaNYL-bupivacaine (epidural) 100 ML BAG EPIDURAL ×2 (09:49→14:05)
[2025-04-26 09:52] LABS: Syphilis Antibodies Nonreactive (Nonreactive)
--- NOTE | 2025-04-26 10:47 | HP.PCM.OB_ITS ---
HPI - General General Date of Admission: 04/26/25 HPI Narrative MARTIN CASTELLANOS, is a 29 F who presents @39w4 days IAL regualr ctx good fm no vb lof Maternal Data Information ANJEL Calculator Estimated Delivery Date Method Current WG Current Estimate 04/29/25 LMP (Certain) 39w 4d PFSH PFSH Medical History (Updated 04/26/25 @ 10:[address] 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 Vaginal delivery COVID-19 vaccine series completed Home Medications ?Medication ?Instructions ?Recorded ?Last Taken ?Type multivitamin no.47-iron fum 27 1 cap PO DAILY Check wi th primary 06/14/21 04/25/25 History mg-folate no.1 1 mg-dha 300 mg doctor capsule (PNV-DHA) cholecalciferol (vitamin D3) 125 125 mcg PO QDAY 04/28 Unknown History mcg (5,000 unit) capsule magnesium gluconate 30 mg tablet 30 mg PO QDAY 4 Unknown History sertraline 50 mg tablet (Zoloft) 50 mg PO DAILY #90 ta bs 04/28/24 04/25/25 Rx cetirizine 10 mg tablet (Zyrtec) 10 mg PO QDAY PRN pre gnancy 09/19/24 04/25/25 History Allergy/AdvReac Type Severity Reaction Status Date / Time Penicillins Allergy Intermediate Hives Verified 04/20/25 10:43 Family History Mother Hypertension Grandmother Breast cancer Paternal grt Grandmother Grandmother Hypertension Breast cancer, Onset Age: 60 Paternal Surgical History H/O wisdom tooth extraction Social History adopted: No household members: spouse housing: house number of children: 1 current occupational status: employed current occupation: [employer] pets and animals: Yes pets and animals: dog(s) history of recent travel: No sexually active: Yes Smoking Status: Never smoker second hand exposure: Yes alcohol intake: current alcohol intake frequency: holidays/special occasions only details: not while substance use type: does not use well-balanced diet: daily or most days caffeine: Yes Type: coffee Number of servings: 1 eating out: rarely or never during the past year weight has: remained stable what type of physical activity do you participate in: other details: [place] frequency: 3-4 times per week duration: 30-45 minutes/day juan alberto/confucianism: Religion seatbelt use: always do you feel safe at home: Yes additional social history: - Itz History 2 Elective abortions Hx Para 1 Spontaneous abortions Hx # Term Pregnancies Ectopic pregnancies Hx # Pregnancies Multiple births # of living children 1 Past Pregnancies Del. Date Name GA/Weeks Outcome Route Bth Weight Infant Gen Labor Lgth Anesthesia Del Locatn Provider FOB 02/05/22 Michael 41 live - full term 8#3oz Female epidu ral [facility] Dorothy Mobley Delivery Date: 02/05/22 Last Updated by: Ruthie Costello see problem list for complications, and 41 IOL postdates sm girl michael atony Visit Details Expected Delivery Route/Plan Labor Preferences- CB/BF classes: no labor support person: Itz labor intervention preferences: [] pain management options preferred: epidural cut cord/dad catch: yes : yes PP control planned: [] discussed possible routes of delivery and associated risks: [] special requests: [] Plans Covid status: [] Flu vaccine: declines Tdap vaccine: given Rhogam: NA LARC form signed: declined movement and labor precautions reviewed. Problem list reviewed and updated with the most current plan of care details and appropriate orders placed. Relevant counseling for the gestational age provided. Continue routine care and follow up unless otherwise noted in visit notes/problem list details OB Flowsheet Initial Weight: Not Recorded Date -?-?-?-?-?-?-?-?-?-?-?-?- EGA Weight BP Urine Prot -?-?-?-?-?-?-?-?-?-?-?-?- Glucose FHR FuHt Pres Dilation -?-?-?-?-?-?-?-?-?-?-?-?- Effaced St Visit Note 09/29/24 -?-?-?-?-?-?-?-?-?-?-?-?- 9w 5d 171 lb 4 oz 129/78 -?-?-?-?-?-?-?-?-?-?-?-?- 165 -?-?-?-?-?-?-?-?-?-?-?-?- SM- CRL 3.2 cm c ons with LMP 11/05/24 -?-?-?-?-?-?-?-?-?-?-?-?- 15w 0d 179 lb 2 oz 125/85 Nega tive -?-?-?-?-?-?-?-?-?-?-?-?- Negative 160 -?-?-?-?-?-?-?--?-?-?-?-?- JV- no complaint s today. anatomy scan ordered. bedside scan looks great with movement. patient reassured. 12/01/24 -?-?-?-?-?-?-?-?-?-?-?-?- 18w 5d 181 lb 4 oz 137/73 Nega tive -?-?-?-?-?-?-?-?-?-?-?-?- Negative 150 -?-?-?-?-?-?-?-?-?-?-?-?- Sm- no vb crampi ng anzered quesitons about hemorrhage pp anatomy scan today 12/31/24 -?-?-?-?-?-?-?-?-?-?-?-?- 23w 0d 192 lb 8 oz 108/74 Nega tive -?-?-?-?-?-?-?-?-?-?-?-?- Negative 168 -?-?-?-?-?-?-?-?-?-?-?-?- JV- no lof, vagi nal bleeding, or dec fm. follow up us was normal. has restless legs. iron and magnesium not helping. 01/26/25 -?-?-?-?-?-?-?-?-?-?-?-?- 26w 5d 197 lb 2 oz 131/76 Nega tive -?-?-?-?-?-?-?-?-?-?-?-?- Negative 150 -?-?-?-?-?-?-?-?-?-?-?-?- SM- no vb lof go od fm no regular ctx. 02/11/25 -?-?-?-?-?-?-?-?-?-?-?-?- 29w 0d 200 lb 2 oz 127/80 Nega tive -?-?-?-?-?-?-?-?-?-?-?-?- Negative 125 33 -?-?-?-?-?-?-?-?-?-?-?-?- JV- no lof, vagi nal bleeding, or dec fm. 02/25/25 -?-?-?-?-?-?-?-?-?-?-?-?- 31w 0d 201 lb 4 oz 131/82 Nega tive -?-?-?-?-?-?-?-?-?-?-?-?- Negative 135 31 -?-?-?-?-?-?-?-?-?-?-?-?- SM- no vb lof go od fm no reguar ctx 03/09/25 -?-?-?-?-?-?-?-?-?-?-?-?- 32w 5d 203 lb 6 oz 119/79 Nega tive -?-?-?-?-?-?-?-?-?-?-?-?- Negative 155 33 -?-?-?-?-?-?-?-?-?-?-?-?- JV- no lof, vagi nal bleeding, or dec fm. no complaints 03/23/25 -?-?-?-?-?-?-?-?-?-?-?-?- 34w 5d 207 lb 1 oz 112/81 Nega tive -?-?-?-?-?-?-?-?-?-?-?-?- Negative 142 35 -?-?-?-?-?-?-?-?-?-?-?-?- MH-No VB, LOF. G ood FM. No concerns 04/06/25 -?-?-?-?-?-?-?-?-?-?-?-?- 36w 5d 206 lb 2 oz 126/81 Nega tive -?-?-?-?-?-?-?-?-?-?-?-?- Negative 169 36.5 Cephalic 1 -?-?-?-?-?-?-?-?-?-?-?-?- 30 -3 JV- GBS co llected, no lof, vaginal bleeding, or dec fm. JV- GBS collected, no lof, v aginal bleeding, or dec fm. wants to consider induction at 40 weeks 04/14/25 -?-?-?-?-?-?-?-?-?-?-?-?- 37w 6d 210 lb 4 oz 135/82 124/82 Negative -?-?-?-?-?-?-?-?-?-?-?-?- Negative 154 37.5 Cephalic 1 .5 -?-?-?-?-?-?-?-?-?-?-?-?- 50 -3 JV- GBS ne g. no headaches or blurry vision. ankles more swollen today. Has some right side pain that improves with rest. NOT upper quadrant. 04/20/25 -?-?-?-?-?-?-?-?-?-?-?-?- 38w 5d 209 lb 7 oz 145/91 135/92 Negative -?-?-?-?-?-?-?-?-?-?-?-?- Negative 135 40 Cephalic 3 -?-?-?-?-?--?-?-?-?-?-?-?- 70 -2 SM- no vb lof good fm n oreuglar ctx borderline bps to l and d for evaluation NST FHR Rate Baby A Baseline: 140 Variability:: Moderate Accelerations:: 15 x 15 Decelerations:: None NST Reactive:: Yes FHR Category:: Category I Uterine Activity:: q3-5 ROS Constitutional Constitutional: Reports systems reviewed and no addt'l complaints, except as documented ENT HEENT: Reports systems reviewed and no addt'l complaints, except as documented Cardiovascular Cardiovascular: Reports systems reviewed and no addt'l complaints, except as documented Respiratory/Chest Respiratory/Chest: Reports systems reviewed and no addt'l complaints, except as documented Gastrointestinal Gastrointestinal: Reports systems reviewed and no addt'l complaints, except as documented and nausea; Denies abdominal pain Genitourinary Genitourinary: Reports systems reviewed and no addt'l complaints, except as documented, contractions Details: present and frequency (regular ) and movement Details: present Musculoskeletal Musculoskeletal: Reports systems reviewed and no addt'l complaints, except as documented Integumentary Integumentary: Reports as per HPI Neurologic Neurologic: Reports systems reviewed and no addt'l complaints, except as documented Endocrine Endocrinology: Reports systems reviewed and no addt'l complaints, except as documented Vital Signs Vital Signs Vital Signs: 04/26/25 08:12 04/26/25 08:12 04/26/25 08:12 Temperature Temperature Source Temporal Pulse Rate 118 H Respiratory Rate Blood Pressure 138/92 H BP Systolic 138 BP Diastolic 92 Pulse Ox 04/26/25 08:12 04/26/25 08:12 04/26/25 08:13 Temperature 98.2 F Temperature Source Pulse Rate Respiratory Rate 16 Blood Pressure 138/89 H BP Systolic 138 BP Diastolic 89 Pulse Ox 04/26/25 08:13 04/26/25 09:29 04/26/25 09:29 Temperature Temperature Source Pulse Rate 117 H 114 H Respiratory Rate Blood Pressure 154/109 H BP Systolic 154 BP Diastolic 109 Pulse Ox 04/26/25 09:30 04/26/25 09:30 04/26/25 09:34 Temperature Temperature Source Pulse Rate 114 H Respiratory Rate Blood Pressure 149/98 H BP Systolic 149 BP Diastolic 98 Pulse Ox 99 04/26/25 09:34 04/26/25 09:35 04/26/25 09:35 Temperature Temperature Source Pulse Rate 113 H 113 H Respiratory Rate Blood Pressure BP Systolic BP Diastolic Pulse Ox 98 04/26/25 09:40 04/26/25 09:40 04/26/25 09:40 Temperature Temperature Source Pulse Rate 106 H Respiratory Rate Blood Pressure 151/85 H BP Systolic 151 BP Diastolic 85 Pulse Ox 98 04/26/25 09:44 04/26/25 09:44 04/26/25 09:45 Temperature Temperature Source Pulse Rate 101 H 100 Respiratory Rate Blood Pressure 148/88 H BP Systolic 148 BP Diastolic 88 Pulse Ox 04/26/25 09:45 04/26/25 09:45 04/26/25 09:49 Temperature Temperature Source Pulse Rate Respiratory Rate 16 Blood Pressure 149/78 H BP Systolic 149 BP Diastolic 78 Pulse Ox 97 04/26/25 09:49 04/26/25 09:50 04/26/25 09:50 Temperature Temperature Source Pulse Rate 103 H 108 H Respiratory Rate Blood Pressure BP Systolic BP Diastolic Pulse Ox 98 04/26/25 09:50 04/26/25 09:54 04/26/25 09:54 Temperature Temperature Source Pulse Rate 101 H Respiratory Rate 16 Blood Pressure 139/81 H BP Systolic 139 BP Diastolic 81 Pulse Ox 04/26/25 09:55 04/26/25 09:55 04/26/25 09:55 Temperature Temperature Source Pulse Rate 121 H Respiratory Rate 16 Blood Pressure BP Systolic BP Diastolic Pulse Ox 98 04/26/25 09:59 04/26/25 09:59 04/26/25 10:00 Temperature Temperature Source Pulse Rate 103 H 111 H Respiratory Rate Blood Pressure 142/78 H BP Systolic 142 BP Diastolic 78 Pulse Ox 04/26/25 10:00 04/26/25 10:00 04/26/25 10:05 Temperature Temperature Source Pulse Rate Respiratory Rate 16 Blood Pressure 134/65 H BP Systolic 134 BP Diastolic 65 Pulse Ox 98 04/26/25 10:05 04/26/25 10:05 04/26/25 10:06 Temperature Temperature Source Pulse Rate 107 H 114 H Respiratory Rate 16 Blood Pressure BP Systolic BP Diastolic Pulse Ox 04/26/25 10:06 04/26/25 10:10 04/26/25 10:10 Temperature Temperature Source Pulse Rate 113 H Respiratory Rate Blood Pressure 129/58 H BP Systolic 129 BP Diastolic 58 Pulse Ox 98 04/26/25 10:10 04/26/25 10:11 04/26/25 10:11 Temperature Temperature Source Pulse Rate 122 H Respiratory Rate 16 Blood Pressure BP Systolic BP Diastolic Pulse Ox 97 04/26/25 10:14 04/26/25 10:14 04/26/25 10:16 Temperature Temperature Source Pulse Rate 86 101 H Respiratory Rate Blood Pressure 120/62 BP Systolic 120 BP Diastolic 62 Pulse Ox 04/26/25 10:16 04/26/25 10:20 04/26/25 10:20 Temperature Temperature Source Pulse Rate 101 H Respiratory Rate Blood Pressure 102/55 L BP Systolic 102 BP Diastolic 55 Pulse Ox 98 04/26/25 10:21 04/26/25 10:21 04/26/25 10:24 Temperature Temperature Source Pulse Rate 127 H Respiratory Rate Blood Pressure 136/87 H BP Systolic 136 BP Diastolic 87 Pulse Ox 99 04/26/25 10:24 04/26/25 10:26 04/26/25 10:26 Temperature Temperature Source Pulse Rate 125 H 122 H Respiratory Rate Blood Pressure BP Systolic BP Diastolic Pulse Ox 98 04/26/25 10:29 04/26/25 10:29 04/26/25 10:31 Temperature Temperature Source Pulse Rate 114 H 104 H Respiratory Rate Blood Pressure 113/57 L BP Systolic 113 BP Diastolic 57 Pulse Ox 04/26/25 10:31 04/26/25 10:32 04/26/25 10:32 Temperature Temperature Source Pulse Rate 99 Respiratory Rate Blood Pressure 105/57 L BP Systolic 105 BP Diastolic 57 Pulse Ox 100 04/26/25 10:34 04/26/25 10:34 04/26/25 10:36 Temperature Temperature Source Pulse Rate 103 H 108 H Respiratory Rate Blood Pressure 99/59 L BP Systolic 99 BP Diastolic 59 Pulse Ox 04/26/25 10:36 04/26/25 10:38 04/26/25 10:38 Temperature Temperature Source Pulse Rate 117 H Respiratory Rate Blood Pressure 99/53 L BP Systolic 99 BP Diastolic 53 Pulse Ox 96 04/26/25 10:40 04/26/25 10:40 04/26/25 10:41 Temperature Temperature Source Pulse Rate 111 H 120 H Respiratory Rate Blood Pressure 115/61 BP Systolic 115 BP Diastolic 61 Pulse Ox 04/26/25 10:41 04/26/25 10:44 04/26/25 10:44 Temperature Temperature Source Pulse Rate 109 H Respiratory Rate Blood Pressure 118/58 L BP Systolic 118 BP Diastolic 58 Pulse Ox 98 04/26/25 10:45 04/26/25 10:45 04/26/25 10:46 Temperature Temperature Source Pulse Rate 116 H 111 H Respiratory Rate Blood Pressure 119/57 L BP Systolic 119 BP Diastolic 57 Pulse Ox 04/26/25 10:46 Temperature Temperature Source Pulse Rate Respiratory Rate Blood Pressure BP Systolic BP Diastolic Pulse Ox 99 Weight Weight: 211 lb Body Mass Index (BMI) 36.2 Physical Exam Const alert, oriented x3 and healthy appearing Constitutional Narrative: uncomfortable with contractions HEENT normocephalic and moist oral mucous membranes Head and Scalp: atraumatic Neck full ROM, no lymphadenopathy, supple and thyroid normal General: trachea midline Thyroid: thyroid normal Lymph Lymphatic: no lymphadenopathy noted Chest inspection of chest normal Resp normal respiratory effort Cardio regular rate GI soft to palpation and non-tender GI Narrative: gravid Inspection: gravid external exam normal Bimanual Exam - Vag & Uterus: uterus non-tender Manual OB Exam: estimated gestational size appropriate, presentation cephalic, dilated, effaced and station Extremity normal to inspection General Extremity: Negative for edema Skin no rashes or lesions noted Neuro deep tendon reflexes 2+ bilaterally Motor Exam: strength 5/5 throughout and clonus absent Psych mental status grossly normal Labs Labs Labs: Blood Type A POSITIVE Antibody Screen NEGATIVE Hct, (37-47) 35.4 % L Hgb, (12.0-15.0) 11.8 g/dL L Pap Smear Negative Obstetrics Ultrasound Syphilis Total Ab, (Nonreactive) Nonreactive Rubella IgG Antibody, (Nonreactive) REAC Hep Bs Antigen, (Nonreactive) Nonreactive Hepatitis C Antibody, (Nonreactive) Nonreactive Chlamydia DNA (ZULEMA), (Negative) Negative N.gonorrhoeae DNA (ZULEMA), (Negative) Negative HIV 1&2 Antibody, (Nonreactive) Nonreactive Glucose 1 Hr 50 gm, (70-140) 112 mg/dL Rhogam given: No Assessment & Plan (1) Active labor at term: (2) Family history of transposition of great vessels: COMMENT: echo declined (3) History of atony of uterus: (4) : QUALIFIERS: Weeks of gestation: 38 weeks Qualified Code(s): Z3A.38 - 38 weeks gestation of COMMENT: gbs neg, Requests docs or Suzanne only. declined NIPT & Carrier testing (5) Supervision of normal : QUALIFIERS: Normal : other normal Trimester: third trimester Qualified Code(s): Z34.83 - Encounter for supervision of other normal , third trimester COMMENT: PRR , ANJEL 04/29, girl Alicia Mathias, Itz (6) Depression: QUALIFIERS: Depression Type: unspecified Qualified Code(s): F32.A - Depression, unspecified (7) Anxiety: COMMENT: Zoloft. counseling recommended.
[2025-04-26] MEDS: Lactated Ringers 1,000 ML 200 ML IV (13:43)
[2025-04-26] MEDS: LACTATED RINGERS 500 ML 999 ML IV ×2 (16:43→17:42)
--- NOTE | 2025-04-26 17:35 | PCM.PN.BLA ---
Progress Note late entry- 1100 arom clear fluid 6 cm cat I tracing exp managmeent s/p epidural
--- NOTE | 2025-04-26 17:36 | PCM.PN.BLA ---
Progress Note patient pushing, cat II tracing with moderate variability and accels, temp 101.5 start vanc and gent now due to penicillin hive allergy. +1 station with pushing, assesing for vacuum, redosing with epidural at present for comfort.
[2025-04-26] MEDS: Gentamicin IV 270 MG in Dextrose 5%-Water (50mL Bag) 50 ML 100 MG IVPB (18:03)
[2025-04-26] MEDS: Oxytocin 15 Units/NS 250ml 15 UNITS/250 ML IV.SOLN 334 UNITS IV (18:35)
--- NOTE | 2025-04-26 18:40 | OB.VAGDELI_ITS ---
Assessment & Plan (1) Active labor at term: (2) Family history of transposition of great vessels: COMMENT: echo declined (3) History of atony of uterus: (4) : QUALIFIERS: Weeks of gestation: 38 weeks Qualified Code(s): Z3A.38 - 38 weeks gestation of COMMENT: gbs neg, Requests docs or Suzanne only. declined NIPT & Carrier testing (5) Supervision of normal : QUALIFIERS: Normal : other normal Trimester: third trimester Qualified Code(s): Z34.83 - Encounter for supervision of other normal , third trimester COMMENT: PRR , ANJEL 04/29, girl Shaheen PC Mey, Itz (6) Depression: QUALIFIERS: Depression Type: unspecified Qualified Code(s): F32.A - Depression, unspecified (7) Anxiety: COMMENT: Normaoft. counseling recommended. (8) Vacuum-assisted vaginal delivery: COMMENT: vavd OP 39 girl shaheen shoulder dystocia atony (9) Shoulder dystocia during labor and delivery: COMMENT: 43 seconds, attempted delivery of the posterior arm, jerome gates Maternal Data Information ANJEL Calculator Estimated Delivery Date Method Current WG Current Estimate 04/29/25 LMP (Certain) 39w 4d Vaginal Delivery Maternal Presentation Maternal Presentation: see assessment and plan Vaginal Delivery Information Procedure Performed: Vacuum Assisted Vaginal Delivery Station at time of placement: +2 Number of vacuum pulls: 2 Number of vacuum pop offs: 0 Length of time vacuum on: 04:00 and Other Surgeon/Practitioner: Dorothy Lee Pre-Procedure Diagnosis: see assessment and plan Post-Procedure Diagnosis: same Type of anesthesia: Epidural Findings Description of procedure: Patient began pushing and was found to be direct OP. Attempted manual rotation was performed and the head went right back to direct OP presentation. Patient continued pushing and after 3 hours developed tachycardia and a fever, antibiotics and Tylenol and fluids were started, patient had a category 2 tracing and had maternal exhaustion, patient had made progress to +2 station and was consented for a vacuum-assisted delivery. Vacuum was applied and 2 pulls were made with no pop-off's and delivered the head which rotated with delivery from direct OP and the right shoulder was anterior. it was immediately noted a shoulder dystocia was encountered with first attempt to deliver the anterior shoulder. the patient was uncomfortable with pushing and having difficulty pulling her legs back as needed with assistance. there was more room for delivery posteriorly noted so it was attempted to deliver the posterior arm and the posterior shoulder was dislodged and with a woodscrew maneuver to rotate and dislodge, combined with jerome, the rest of the infant delivered within 43 seconds with gentle downward tracion on the front and back on the head. the rest of the infant delivered and was placed on the maternal abdomen without complication, terminal mec noted. cord gases sent. Cord was clamped and cut immediately and infant passed off for evaluation. gentle traction was applied to the cord and the placenta delivered spontaneously immediately following it was noted to be intact with three-vessel cord. atony was noted 400 ebl methergine pitocin and hemabate given. The perineum and vagina were inspected and noted to have no laceration. EBL was 400. Patient and infant tolerated delivery well. Presentation: Vertex Placental Delivery Description: Spontaneous Specimen collected: Yes Description of specimen(s) removed: placenta Web Services Architect ict development manager: No Post Vaginal Deli Medications given after delivery: Other (pitocin) Complication Complications: No Multi Select Codes Urinary/Genital Urinary/Genital CPT Codes: 05502 Vaginal Delivery global pkg
[2025-04-26] MEDS: Vancomycin HCl 1,500 MG in 0.9% Normal Saline (500mL Bag) 500 ML 250 MG IV (18:43)
--- NOTE | 2025-04-26 19:03 | PCM.DC ---
Discharge Instructions DC O2, CPAP, BIPAP needs Home O2 Discharge instructions: No Dressing / Incision Discharge Activity: Return to Normal Activity, May Not Drive (while taking narcotic pain medications.) and May Shower May resume sexual activity in: 4-6 weeks Dressing / Incision Call your doctor if your incision/area has: Continuous Slow Oozing, Sudden Increased Bleeding, Increased Pain/ Swelling, Increased Redness and Foul Smelling Discharge Follow Up Care Please Follow Up With: Dorothy Lee MD When: Call [phone] to make an appointment with your doctor in 6 weeks. If you had elevated blood pressure or 4th degree laceration, you will need to be seen in 2 weeks. Test Results: Test results from this visit will be discussed in further detail at your follow-up appointment, if applicable. Discharge Plan Admission Admit Date/Time: 04/26/25 08:24 Attending Provider: Dorothy Lee Primary Care Provider: Kiya Greer Discharge Orders/Prescriptions Prescriptions: No Action PNV-DHA 27 mg iron-1 mg -300 mg capsule 1 cap PO DAILY magnesium gluconate 30 mg tablet 30 mg PO QDAY cholecalciferol (vitamin D3) 125 mcg (5,000 unit) capsule 125 mcg PO QDAY sertraline [Zoloft] 50 mg tablet 50 mg PO DAILY Qty: 90 4RF cetirizine [Zyrtec] 10 mg tablet 10 mg PO QDAY PRN (Reason: ) Referrals / Follow Up: Kiya Greer, [employer] [Primary Care Provider, Internal Medicine]
[2025-04-26] MEDS: Oxytocin 15 Units/NS 250ml 15 UNITS/250 ML IV.SOLN 83 UNITS IV (19:20)
--- OUTSIDE RECORDS SUMMARY | 2025-04-26 19:58 | XMS RPT_ITS | CCD ---
Author Organization [facility] ion Partnership [facility] [employer] Care Team Providers Care Tube Draw Helper Name Role Phone Sowmya Baldwin E Unavailable Ele Osorio Unavailable Unavailable Unavailable Unavailable Rosalino Ramírez Unavailable Unavailable Unavailable Unavailable Denny Sowmya Unavailable Rosalino Ramírez LPN Unavailable Unavailable Ele Osorio Unavailable Unavailable Unavailable Unavailable Ciesa FACILITIES ADMINISTRATOR, FACILITIES ADMINISTRATOR-C [facility] Primary Care Provider Ciesa FACILITIES ADMINISTRATOR, FACILITIES ADMINISTRATOR-C [facility] Referring Provider [phone] Dr. Rose Mahmood Attending Provider [phone] Dr. Dorothy Lee Attending Provider [phone] Ciesa FACILITIES ADMINISTRATOR, FACILITIES ADMINISTRATOR-C [facility] Primary Care Provider Ciesa FACILITIES ADMINISTRATOR, FACILITIES ADMINISTRATOR-C [facility] Referring Provider [phone] Dr. Rose Mahmood Attending Provider [phone] Cidavida Sowmya Unavailable Percy WHEELER, Kiya Unavailable [phone] Percy WHEELER, Kiya Unavailable [phone] Cidavida Sowmya Unavailable Ciesa FACILITIES ADMINISTRATOR, FACILITIES ADMINISTRATOR-C [facility] Primary Care Provider Ciesa FACILITIES ADMINISTRATOR, FACILITIES ADMINISTRATOR-C [facility] Referring Provider [phone] Dr. Rose Mahmood Attending Provider [phone] Marie FACILITIES ADMINISTRATOR, FACILITIES ADMINISTRATOR-C Suzanne Attending Provider [phone] Odalys Farfan Attending Provider Unavailable Dr. Kirk Lemon Attending Provider Percy, FACILITIES ADMINISTRATOR-C Kiya Primary Care Provider [phone] Ciesa FACILITIES ADMINISTRATOR, FACILITIES ADMINISTRATOR-C [facility] Primary Care Provider Ciesa FACILITIES ADMINISTRATOR, FACILITIES ADMINISTRATOR-C Sowmya Referring Provider [phone] Dr. Dorothy Lee Attending Provider [phone] Percy, FACILITIES ADMINISTRATOR-C Kiya Referring Provider [phone] Dr. Dorothy Lee Admit Provider [phone] Dr. Dorothy Lee Other Provider Percy FINE JEWELRY SALES ASSOCIATE, Kiya Attending Unavailable Percy FINE JEWELRY SALES ASSOCIATE, Kiya Referring Unavailable Percy FINE JEWELRY SALES ASSOCIATE, Kiya Consulting Unavailable Slarb CHIEF TECHNOLOGIST, Lilian Unavailable Unavailable Percy FACILITIES ADMINISTRATOR-C, Kiya Primary Care Provider [phone] Percy FACILITIES ADMINISTRATOR-C, Kiya Referring Provider Dr. Dorothy Lee MD [...] Neil CNM Referring Provider [phone] Percy FACILITIES ADMINISTRATOR-C, Kiya Primary Care Provider [phone] Percy FACILITIES ADMINISTRATOR-C, Kiya Referring Provider Dr. Dorothy Lee MD Attending Provider Percy FACILITIES ADMINISTRATOR-C, Kiya Primary Care Physician [phone] Dr. Rose Mahmood DO Attending Physician Dr. Dorothy Lee MD Attending Physician Rashaad JOHNSON, Ranjana Attending Physician [phone] Percy FACILITIES ADMINISTRATOR-C, Kiya Primary Care Physician [phone] Percy FACILITIES ADMINISTRATOR-C, Kiya Referring Provider [phone] Dr. Rose Mahmood DO Attending Physician Percy FACILITIES ADMINISTRATOR-C, Kiya Primary Care Physician [phone] Percy FACILITIES ADMINISTRATOR-C, Kiya Referring Provider [phone] Jesus URBINA, Dr. De La Cruz Attending Physician Marie FACILITIES ADMINISTRATOR-C, Suzanne Attending Physician [phone] Percy, Kiya Referring [...] Referring Unavailable Percy, Kiya Primary Care Unavailable [place] FACILITIES ADMINISTRATOR, Suzanne Attending Unavailable Percy, Kiya Referring Unavailable [...] Primary Care Unavailable Percy, Kiya Referring Unavailable [place] FACILITIES ADMINISTRATORSuzanne Referring Unavailable [place] FACILITIES ADMINISTRATOR, Suzanne Attending Unavailable Percy, Kiya Primary Care [...] Translations: [Penicillin G Procaine *PENICILLINS*] Drug Allergy [facility] Comprehensive Internal Medicine Work Phone: (17 sources) Penicillins; Translations: [Penicillins] Allergy to substance 2 [facility] Medications Current Medications Medication Drug Class(es) [...] A DAY December 14, 2021 12:00am Multivit 72-Mvcl-Bvieaj 1-Dha (Pnv-Dha) 27 mg iron-1 mg -300 mg capsule (16 sources) Start: 06-14-2021 Multivit 36-Xpkz-Faovwj 1-Dha (Pnv-Dha) 27 mg iron-1 mg -300 [...] 09-19-2022 Chronic Comment on above: treated by PAPER TUBE MACHINE OPERATOR Dr Abiel Lee, put her on buspar. [...] AST [Catalytic activity/Vol] 20 U/L Normal <=31 [facility] Comment on above: Performed By: #### L 501.1400, L501.0900, L501.4100, L501.4405, L100.0500, L501.1105 ####[facility] [address] [place], [place], [id number] Alanine Aminotransferas (SGP T)on 04-20-2025 ALT [Catalytic activity/Vol] 16 U/L Normal <=34 [facility] Comment on above: Performed By: #### L 501.1400, L501.0900, L501.4100, L501.4405, L100.0500, L501.1105 ####[facility] [address] [place], [address] CBC-Complete Blood Cnt No Di ffon 04-20-2025 Erythrocyte distribution width (RBC) [Ratio] 14.7 % High 11.6-14.6 [facility] Comment on above: Performed By: #### L 501.1400, L501.0900, L501.4100, L501.4405, L100.0500, L501.1105 ####[facility] [address] [place], [address] Hematocrit (Bld) [Volume fraction] 35.0 % Low 37-47 [facility] Comment on above: Performed By: #### L 501.1400, L501.0900, L501.4100, L501.4405, L100.0500, L501.1105 ####[facility] [address] [place], [address] Hemoglobin (Bld) [Mass/Vol] 11.8 g/dL Low 12.0-15.0 [facility] Comment on above: Performed By: #### L 501.1400, L501.0900, L501.4100, L501.4405, L100.0500, L501.1105 ####[facility] [address] [place], [address] MCH (RBC) [Entitic mass] 30.3 pg Normal 27.0-32.0 [facility] Comment on above: Performed By: #### L 501.1400, L501.0900, L501.4100, L501.4405, L100.0500, L501.1105 ####[facility] [address] [place], [address] MCHC (RBC) [Mass/Vol] 33.7 g/dL Normal 32-36 [facility] Comment on above: Performed By: #### L 501.1400, L501.0900, L501.4100, L501.4405, L100.0500, L501.1105 ####[facility] [address] [place], [address] MCV (RBC) [Entitic vol] 89.7 fL Normal 81-99 [facility] Comment on above: Performed By: #### L 501.1400, L501.0900, L501.4100, L501.4405, L100.0500, L501.1105 ####[facility] [address] [place], [address] Platelet mean volume (Bld) [Entitic vol] 10.9 fL Normal 6.2-12.0 [facility] Comment on above: Performed By: #### L 501.1400, L501.0900, L501.4100, L501.4405, L100.0500, L501.1105 ####[facility] [address] [place], [address] Platelets (Bld) [#/Vol] 158 10*3/uL Normal 150-450 [facility] Comment on above: Performed By: #### L 501.1400, L501.0900, L501.4100, L501.4405, L100.0500, L501.1105 ####[facility] [address] [place], [address] RBC (Bld) [#/Vol] 3.90 10*6/uL Low 4.2-5.4 [facility] Comment on above: Performed By: #### L 501.1400, L501.0900, L501.4100, L501.4405, L100.0500, L501.1105 ####[facility] [address] [place], [address] RDW SD 46.9 fl High 35.1-43.9 [facility] Comment on above: Performed By: #### L 501.1400, L501.0900, L501.4100, L501.4405, L100.0500, L501.1105 ####[facility] [address] [place], [address] WBC (Bld) [#/Vol] 8.1 10*3/uL Normal 4.4-11.0 [facility] Comment on above: Performed By: #### L 501.1400, L501.0900, L501.4100, L501.4405, L100.0500, L501.1105 ####[facility] [address] [place], [address] OB Triage Progress Noteon OB Triage Progress Note [facility] Medical Records Department [address] [place] [address] OB Triage Progress Note 04/20/25 1334 MR#: [id number] Acct: [id number] Name: MARTIN CASTELLANOS Rep #: [id number] : 1995 29 From: Dorothy Lee MD PCP: Kiya Greer NP-C Status:REG CLI Y DOS: Location: [place] [address] Progress Notes Date of Service: 04/20/25 Progress Note: Patient presents for triage evaluation secondary to elevated bps in the office FHT: 130 Moderate variability reactive no decelerations category I tracing Dike: no regular Contractions Assessment and plan: elevated [...] (0-200) mg/g CRE Charges/Coding Procedures Urinary/Genital 52xxx-59xxx: [id number] non-stress test Interp 04/20/25 1336 Date Dorothy Lee MD Cosigner Signature (if applicable): Date CC: FACILITIES ADMINISTRATORAnilC Kiya Greer; Dr. Dorothy Lee MD Signed Normal [facility] Shaping Machine Operator Office Visit Reporton 04-20-2025 Shaping Machine Operator Office Visit Report [facility]'s [address], [address] [place] [address] OFFICE VISIT Date of Service: 04/20/25 MR#: [id number] Acct: [id number] Name: MARTIN CASTELLANOS LUZ Rep #: [id number] : 1995 Provider: Dr. 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 Date Name GA/Weeks Outcome Route Bth Weight Gen Labor Lgth Anesthesia Del Locatn Provider FOB 02/05/22 Michael 41 live - full term 8#3oz Female epidural [facility] audra Mobley Delivery Date: 02/05/22 Last [...] -???-???-???-???-???-? ??-???-???-???-???-?? (more content not included)... Normal [facility] Protein+Creatinine Ratio,Uri neon 04-20-2025 PROT:CRE RATIO 195 mg/g CRE Normal 0-200 [facility] Comment on above: Performed By: #### L 501.1400, L501.0900, L501.4100, L501.4405, L100.0500, L501.1105 ####[facility] [address] [place], [place], [id number] Protein (U) [Mass/Vol] 9.3 mg/dL Normal 0.0-12.0 [facility] Comment on above: Performed By: #### L 501.1400, L501.0900, L501.4100, L501.4405, L100.0500, L501.1105 ####[facility] [address] [place], [address] UR CREAT 47.90 mg/dL Normal 28.00-217.00 [facility] Comment on above: Performed By: #### L 501.1400, L501.0900, L501.4100, L501.4405, L100.0500, L501.1105 ####[facility] [address] [place], [address] Serum Creatinine AND GFRon 1 06-20-2024 Creatinine [Mass/Vol] 0.63 mg/dL Low 0.70-1.20 [facility] Comment on above: Performed By: #### L 501.1400, L501.0900, L501.4100, L501.4405, L100.0500, L501.1105 ####[facility] [address] [place], [address] ECRCL 147.14 ml/min Normal 50-250 [facility] Comment on above: Performed By: #### L 501.1400, L501.0900, L501.4100, L501.4405, L100.0500, L501.1105 ####[facility] [address] [place], [address] GFR/1.73 sq M.predicted among non-blacks MDRD (S/P/Bld) [Vol rate/Area] 123 mL/min/{1.73_m2} Normal >60 [facility] Comment on above: Result Comment: mL/m in/1.73m2 CKD-EPI Creatinine Equation (2020) Performed By: #### L 501.1400, L501.0900, L501.4100, L501.4405, L100.0500, L501.1105 ####[facility] [address] [place], [address] Uric Acidon 04-20-2025 URIC 4.8 mg/dL Normal 2.6-6.0 [facility] Comment on above: Result Comment: The drugs N-Acetylcysteine and Metamizole may falsely depress this assay. Performed By: #### L 501.1400, L501.0900, L501.4100, L501.4405, L100.0500, L501.1105 ####[facility] [address] [place], [address] Shaping Machine Operator Office Visit Reporton 04-14-2025 Shaping Machine Operator Office Visit Report [facility]'s [address], [address] [place] [address] OFFICE VISIT Date of Service: 04/14/25 MR#: [id number] Acct: [id number] Name: MARTIN CASTELLANOS Rep #: [id number] : 1995 Provider: Dr. 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 Normal [facility] Rule out Beta Strep (Grp. B) on 04-08-2025 LUIS Group B Beta Streptococcus is not isolated. Normal [facility] Comment on above: Performed By: #### M 1003400 ####[facility] [address] [place], [address] Laboratory - Chemistry and C hemistry - challengeOrdered By: Rose Man on 04-06-2025 Glucose Ql (U) Negative [facility] Laboratory - UrinalysisOrder ed By: Rose Man on 04-06-2025 Protein Ql (U) Negative [facility] Shaping Machine Operator Office Visit Reporton 04-06-2025 Shaping Machine Operator Office Visit Report [facility]'s [address], [address] [place] [address] OFFICE VISIT Date of Service: 04/06/25 MR#: [id number] Acct: [id number] Name: MARTIN CASTELLANOS Rep #: [id number] : 1995 Provider: Dr. 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 Normal [facility] Laboratory - Chemistry and C hemistry - challengeOrdered By: Suzanne Salazar on 03-23-2025 Glucose Ql (U) Negative [facility] Laboratory - UrinalysisOrder ed By: Suzanne Salazar on 03-23-2025 Protein Ql (U) Negative [facility] Shaping Machine Operator Office Visit Reporton 03-23-2025 Shaping Machine Operator Office Visit Report [facility]'s [address], [address] [place] [address] OFFICE VISIT Date of Service: 03/23/25 MR#: [id number] Acct: [id number] Name: MARTIN CASTELALNOS Rep #: [id number] : 1995 Provider: LUCINDA rodriguez Age/Sex: 29/F [place] [facility] [place]: Signed Intake Vital Signs 02/11/25 09:41 03/09/25 09:27 03/23/25 13:40 Height 5 ft 4 in 5 ft 4 in 5 ft 4 in Weight: 207 lb 1 oz BMI 35.5 BP 112/81 H Intake Visit Reasons: 34wk ob Vehicle Care Specialist Required: No Is patient in pain?: No [...] 1 current occupational status: employed 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 -???- (more content not included)... Normal [facility] Laboratory - Chemistry and C hemistry - challengeOrdered By: Rose Man on 03-09-2025 Glucose Ql (U) Negative [facility] Laboratory - UrinalysisOrder ed By: Rose Man on 03-09-2025 Protein Ql (U) Negative [facility] Shaping Machine Operator Office Visit Reporton 03-09-2025 Shaping Machine Operator Office Visit Report [facility]'s [address], [address] [place] [address] OFFICE VISIT Date of Service: 03/09/25 MR#: [id number] Acct: [id number] Name: MARTIN CASTELLANOS Rep #: [id number] : 1995 Provider: Dr. 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 Normal [facility] Laboratory - Chemistry and C hemistry - challengeOrdered By: Dorothy Lee on 02-25-2025 Glucose Ql (U) Negative [facility] Laboratory - UrinalysisOrder ed By: Dorothy Lee on 02-25-2025 Protein Ql (U) Negative [facility] Shaping Machine Operator Office Visit Reporton 02-25-2025 Shaping Machine Operator Office Visit Report [facility]'s [address], [address] [place] [address] OFFICE VISIT Date of Service: 02/25/25 MR#: [id number] Acct: [id number] Name: MARTIN CASTELLANOS Rep #: [id number] : 1995 Provider: Dr. 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 Normal [facility] Laboratory - Chemistry and C hemistry - challengeOrdered By: Rose Man on 02-11-2025 Glucose Ql (U) Negative [facility] Laboratory - UrinalysisOrder ed By: Rose Man on 02-11-2025 Protein Ql (U) Negative [facility] Shaping Machine Operator Office Visit Reporton 02-11-2025 Shaping Machine Operator Office Visit Report [facility]'s [address], [address] [place] [address] OFFICE VISIT Date of Service: 02/11/25 MR#: [id number] Acct: [id number] Name: MARTIN CASTELLANOS Rep #: [id number] : 1995 Provider: Dr. 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 ??-???-???-? (more content not included)... Normal [facility] Absolute lymphocyte countOrd ered By: Rose Man on 01-26-2025 Lymphocytes Auto (Unsp spec) [#/Vol] 1.16 10*3/uL 0.83-4.51 [facility] Absolute neutrophil countOrd ered By: Rose Man on 01-26-2025 Neutrophils (Bld) [#/Vol] 4.8 10*3/uL 2.0-7.7 [facility] Automated lymphocyte count a s percentage of total leukocytesOrdered By: Rose Man on 01-26-2025 Lymphocytes/100 WBC Auto (Unsp spec) 16.6 % Low 19-41 [facility] Basophil percentageOrdered B y: Rose Man on 01-26-2025 Basophils/100 WBC (Bld) 0.6 % 0-1 [facility] CBC W/Diff, Automatedon 01-09 Absolute Lymph 1.16 X10 3/uL Normal 0.83-4.51 [facility] Comment on above: Performed By: #### L 100.0100, L501.0250, L509.8002, L3890.6006 ####[facility] [address] [place], [address] Absolute Neut 4.8 X10 3/uL Normal 2.0-7.7 [facility] Comment on above: Performed By: #### L 100.0100, L501.0250, L509.8002, L3890.6006 ####[facility] [address] [place], [address] Basophils/100 WBC (Bld) 0.6 % Normal 0-1 [facility] Comment on above: Performed By: #### L 100.0100, L501.0250, L509.8002, L3890.6006 ####[facility] [address] [place], [address] Eosinophils/100 WBC (Bld) 2.1 % Normal 0-5 [facility] Comment on above: Performed By: #### L 100.0100, L501.0250, L509.8002, L3890.6006 ####[facility] [address] [place], [address] Erythrocyte distribution width (RBC) [Ratio] 15.3 % High 11.6-14.6 [facility] Comment on above: Performed By: #### L 100.0100, L501.0250, L509.8002, L3890.6006 ####[facility] [address] [place], [address] Hematocrit (Bld) [Volume fraction] 35.4 % Low 37-47 [facility] Comment on above: Performed By: #### L 100.0100, L501.0250, L509.8002, L3890.6006 ####[facility] [address] [place], [address] Hemoglobin (Bld) [Mass/Vol] 11.8 g/dL Low 12.0-15.0 [facility] Comment on above: Performed By: #### L 100.0100, L501.0250, L509.8002, L3890.6006 ####[facility] [address] [place], [address] IG% 4.600 High 0.0-0.9 [facility] Comment on above: Result Comment: IG% - Immature Granulocytes (promyelocytes, myelocytes and metamyelocytes) > 1% indicates that a LEFT SHIFT is Present. Performed By: #### L 100.0100, L501.0250, L509.8002, L3890.6006 ####[facility] [address] [place], [address] Lymphocytes/100 WBC (Bld) 16.6 % Low 19-41 [facility] Comment on above: Performed By: #### L 100.0100, L501.0250, L509.8002, L3890.6006 ####[facility] [address] [place], [address] MCH (RBC) [Entitic mass] 31.3 pg Normal 27.0-32.0 [facility] Comment on above: Performed By: #### L 100.0100, L501.0250, L509.8002, L3890.6006 ####[facility] [address] [place], [address] MCHC (RBC) [Mass/Vol] 33.3 g/dL Normal 32-36 [facility] Comment on above: Performed By: #### L 100.0100, L501.0250, L509.8002, L3890.6006 ####[facility] [address] [place], [address] MCV (RBC) [Entitic vol] 93.9 fL Normal 81-99 [facility] Comment on above: Performed By: #### L 100.0100, L501.0250, L509.8002, L3890.6006 ####[facility] [address] [place], [address] Monocytes/100 WBC (Bld) 7.2 % Normal 0-10 [facility] Comment on above: Performed By: #### L 100.0100, L501.0250, L509.8002, L3890.6006 ####[facility] [address] [place], [address] Neutrophils/100 WBC (Bld) 68.9 % Normal 47-70 [facility] Comment on above: Performed By: #### L 100.0100, L501.0250, L509.8002, L3890.6006 ####[facility] [address] [place], [address] Nucleated RBC (Bld) [#/Vol] 0 10*3/uL Normal 0-5 [facility] Comment on above: Performed By: #### L 100.0100, L501.0250, L509.8002, L3890.6006 ####[facility] [address] [place], [address] Platelet mean volume (Bld) [Entitic vol] 10.5 fL Normal 6.2-12.0 [facility] Comment on above: Performed By: #### L 100.0100, L501.0250, L509.8002, L3890.6006 ####[facility] [address] [place], [address] Platelets (Bld) [#/Vol] 182 10*3/uL Normal 150-450 [facility] Comment on above: Performed By: #### L 100.0100, L501.0250, L509.8002, L3890.6006 ####[facility] [address] [place], [address] RBC (Bld) [#/Vol] 3.77 10*6/uL Low 4.2-5.4 [facility] Comment on above: Performed By: #### L 100.0100, L501.0250, L509.8002, L3890.6006 ####[facility] [address] [place], [address] RDW SD 53.1 fl High 35.1-43.9 [facility] Comment on above: Performed By: #### L 100.0100, L501.0250, L509.8002, L3890.6006 ####[facility] [address] [place], [address] WBC (Bld) [#/Vol] 7.0 10*3/uL Normal 4.4-11.0 [facility] Comment on above: Performed By: #### L 100.0100, L501.0250, L509.8002, L3890.6006 ####[facility] [address] [place], [address] Eosinophil percentageOrdered By: Rose Man on 01-26-2025 Eosinophils/100 WBC (Bld) 2.1 % 0-5 [facility] Erythrocyte distribution wid th ratioOrdered By: Rose Man on 01-26-2025 Erythrocyte distribution width (RBC) [Ratio] 15.3 % High 11.6-14.6 [facility] Erythrocyte distribution wid th standard deviationOrdered By: Rose Man on 01-26-2025 Erythrocyte distribution width (RBC) [Ratio] 53.1 fl High 35.1-43.9 [facility] Glucose Challenge Gest 1H 50 aleyda 01-26-2025 GLU GEST 50g 1H 112 mg/dL Normal 70-140 [facility] Comment on above: Performed By: #### L 100.0100, L501.0250, L509.8002, L3890.6006 ####[facility] [address] [place], [place], [id number] Glucose measurement at 2 larry rs post-dose gestational glucose tolerance testOrdered By: Rose Man on 01-26-2025 Glucose [Mass/Vol] 112 mg/dL 70-140 [facility] HIVon 01-26-2025 HIV Non-Reactive Normal Nonreactive [facility] Comment on above: Result Comment: Non- Reactive Reactive Repeatedly reactive samples must be confirmed according to CDC recommended confirmatory algorithms. The subresults for either HIVAG or AHIV can be used as an aid in the selection of the confirmation algorithm for reactive samples. Send out specimens with Reactive results to [facility] for confirmation. Order the HIV antibody detection and differentiation: lc#[id number] Performed By: #### L 100.0100, L501.0250, L509.8002, L3890.6006 ####[facility] [address] [place], [address] Hematocrit Auto (Bld) [Volum e fraction]Ordered By: Rose Man on 01-26-2025 Hematocrit (Bld) [Volume fraction] 35.4 % Low 37-47 [facility] Hemoglobin measurementOrdere d By: Rose Man on 01-26-2025 Hemoglobin (Bld) [Mass/Vol] 11.8 g/dL Low 12.0-15.0 [facility] Immature granulocytes/100 WB C Auto (Bld)Ordered By: Rose Man on 01-26-2025 Immature granulocytes/100 WBC (Bld) 4.600 % High 0.0-0.9 [facility] Comment on above: IG% - Immature Granu locytes (promyelocytes, myelocytes and metamyelocytes) > 1% indicates that a LEFT SHIFT is Present. Laboratory - Chemistry and C hemistry - challengeOrdered By: Dorothy Lee on 01-26-2025 Glucose Ql (U) Negative [facility] Laboratory - UrinalysisOrder ed By: Dorothy Lee on 01-26-2025 Protein Ql (U) Negative [facility] MCV (mean corpuscular volume ) determinationOrdered By: Rose Man on 01-26-2025 MCV (RBC) [Entitic vol] 93.9 fL 81-99 [facility] Mean corpuscular hemoglobin (MCH) determinationOrdered By: Rose Man on 01-26-2025 MCH (RBC) [Entitic mass] 31.3 pg 27.0-32.0 [facility] Mean corpuscular hemoglobin concentration (MCHC) determinationOrdered By: Rose Man on 01-26-2025 MCHC (RBC) [Mass/Vol] 33.3 g/dL 32-36 [facility] Mean platelet volume determi nationOrdered By: Rose Man on 01-26-2025 Platelet mean volume (Bld) [Entitic vol] 10.5 fL 6.2-12.0 [facility] Monocyte percentageOrdered B y: Rose Man on 01-26-2025 Monocytes/100 WBC (Bld) 7.2 % 0-10 [facility] Neutrophil percentageOrdered By: Rose Man on 01-26-2025 Neutrophils/100 WBC (Bld) 68.9 % 47-70 [facility] No Panel InformationOrdered By: Rose Man on 01-26-2025 HIV (1&2) Antibody Non-Reactive Nonreactive [facility] Comment on above: Non-ReactiveReactive Repeatedly reactive samples must be confirmed according to CDC recommended confirmatory algorithms. The subresults for either HIVAG or AHIV can be used as an aid in the selection of the confirmation algorithm for reactive samples.Send out specimens with Reactive results to [facility] for confirmation.Order the HIV antibody detection and differentiation: #[id number] Nucleated red blood cell per centageOrdered By: Rose Man on 01-26-2025 Nucleated RBC/100 WBC (Bld) [Ratio] 0 % 0-5 [facility] Shaping Machine Operator Office Visit Reporton 01-26-2025 Shaping Machine Operator Office Visit Report [facility] [address], [address] [place] [address] OFFICE VISIT Date of Service: 01/26/25 MR#: [id number] Acct: [id number] Name: MARTIN CASTELLANOS Rep #: [id number] : 1995 Provider: Dr. 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 Normal [facility] Platelet countOrdered By: Reji Man on 01-26-2025 Platelets (Bld) [#/Vol] 182 10*3/uL 150-450 [facility] RBC Auto (Bld) [#/Vol]Ordere d By: Rose Man on 01-26-2025 RBC (Bld) [#/Vol] 3.77 10*6/uL Low 4.2-5.4 [facility] Syphilis Antibodieson 2024 Syphilis Abs Non-Reactive Normal Nonreactive [facility] Comment on above: Performed By: #### L 100.0100, L501.0250, L509.8002, L3890.6006 ####[facility] [address] [place], [place], [address] White blood cell (WBC) count Ordered By: Roes Man on 01-26-2025 WBC (Bld) [#/Vol] 7.0 10*3/uL 4.4-11.0 [facility] Laboratory - Chemistry and C hemistry - challengeOrdered By: Rose Man on 12-31-2024 Glucose Ql (U) Negative [facility] Laboratory - UrinalysisOrder ed By: Rose Man on 12-31-2024 Protein Ql (U) Negative [facility] Shaping Machine Operator Office Visit Reporton 12-31-2024 Shaping Machine Operator Office Visit Report [address], [address] [place] [address] OFFICE VISIT Date of Service: 12/31/24 MR#: [id number] Acct: [id number] Name: MARTIN CASTELLANOS Rep #: [id number] : 1995 Provider: Dr. 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 ??-???-???-??? (more content not included)... Normal [facility] Laboratory - Chemistry and C hemistry - challengeOrdered By: Dorothy Lee on 12-01-2024 Glucose Ql (U) Negative [facility] Laboratory - UrinalysisOrder ed By: Dorothy Lee on 12-01-2024 Protein Ql (U) Negative [facility] Shaping Machine Operator Office Visit Reporton 12-01-2024 Shaping Machine Operator Office Visit Report [facility] [address], [address] [place] [address] OFFICE VISIT Date of Service: 12/01/24 MR#: [id number] Acct: [id number] Name: EMANUELMARTIN LUZ Rep #: [id number] : 1995 Provider: Dr. 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 Normal [facility] Absolute lymphocyte countOrd ered By: Dorothy Nuneskaylynn on 11-05-2024 Lymphocytes Auto (Unsp spec) [#/Vol] 1.48 10*3/uL 0.83-4.51 [facility] Absolute neutrophil countOrd ered By: Dorothy Nuneskaylynn on 11-05-2024 Neutrophils (Bld) [#/Vol] 5.7 10*3/uL 2.0-7.7 [facility] Automated lymphocyte count a s percentage of total leukocytesOrdered By: Dorothy Jesus on 11-05-2024 Lymphocytes/100 WBC Auto (Unsp spec) 18.6 % Low 19-41 [facility] Basophil percentageOrdered B y: Dorothy Nuneskaylynn on 11-05-2024 Basophils/100 WBC (Bld) 0.3 % 0-1 [facility] CBC W/Diff, Automatedon 10-10 Absolute Lymph 1.48 X10 3/uL Normal 0.83-4.51 [facility] Comment on above: Performed By: #### L 100.0100, L3890.6006, L509.8002, BTS, L509.4006, L3890.6301, L3890.6102 ####[facility] [address] [place], [address] Absolute Neut 5.7 X10 3/uL Normal 2.0-7.7 [facility] Comment on above: Performed By: #### L 100.0100, L3890.6006, L509.8002, BTS, L509.4006, L3890.6301, L3890.6102 ####[facility] [address] [place], [address] Basophils/100 WBC (Bld) 0.3 % Normal 0-1 [facility] Comment on above: Performed By: #### L 100.0100, L3890.6006, L509.8002, BTS, L509.4006, L3890.6301, L3890.6102 ####[facility] [address] [place], [address] Eosinophils/100 WBC (Bld) 2.8 % Normal 0-5 [facility] Comment on above: Performed By: #### L 100.0100, L3890.6006, L509.8002, BTS, L509.4006, L3890.6301, L3890.6102 ####[facility] [address] [place], [address] Erythrocyte distribution width (RBC) [Ratio] 14.2 % Normal 11.6-14.6 [facility] Comment on above: Performed By: #### L 100.0100, L3890.6006, L509.8002, BTS, L509.4006, L3890.6301, L3890.6102 ####[facility] [address] [place], [address] Hematocrit (Bld) [Volume fraction] 38.3 % Normal 37-47 [facility] Comment on above: Performed By: #### L 100.0100, L3890.6006, L509.8002, BTS, L509.4006, L3890.6301, L3890.6102 ####[facility] [address] [place], [address] Hemoglobin (Bld) [Mass/Vol] 12.8 g/dL Normal 12.0-15.0 [facility] Comment on above: Performed By: #### L 100.0100, L3890.6006, L509.8002, BTS, L509.4006, L3890.6301, L3890.6102 ####[facility] [address] [place], [address] IG% 1.100 High 0.0-0.9 [facility] Comment on above: Result Comment: IG% - Immature Granulocytes (promyelocytes, myelocytes and metamyelocytes) > 1% indicates that a LEFT SHIFT is Present. Performed By: #### L 100.0100, L3890.6006, L509.8002, BTS, L509.4006, L3890.6301, L3890.6102 ####[facility] [address] [place], [address] Lymphocytes/100 WBC (Bld) 18.6 % Low 19-41 [facility] Comment on above: Performed By: #### L 100.0100, L3890.6006, L509.8002, BTS, L509.4006, L3890.6301, L3890.6102 ####[facility] [address] [place], [address] MCH (RBC) [Entitic mass] 30.3 pg Normal 27.0-32.0 [facility] Comment on above: Performed By: #### L 100.0100, L3890.6006, L509.8002, BTS, L509.4006, L3890.6301, L3890.6102 ####[facility] [address] [place], [address] MCHC (RBC) [Mass/Vol] 33.4 g/dL Normal 32-36 [facility] Comment on above: Performed By: #### L 100.0100, L3890.6006, L509.8002, BTS, L509.4006, L3890.6301, L3890.6102 ####[facility] [address] [place], [address] MCV (RBC) [Entitic vol] 90.8 fL Normal 81-99 [facility] Comment on above: Performed By: #### L 100.0100, L3890.6006, L509.8002, BTS, L509.4006, L3890.6301, L3890.6102 ####[facility] [address] [place], [address] Monocytes/100 WBC (Bld) 5.8 % Normal 0-10 [facility] Comment on above: Performed By: #### L 100.0100, L3890.6006, L509.8002, BTS, L509.4006, L3890.6301, L3890.6102 ####[facility] [address] [place], [address] Neutrophils/100 WBC (Bld) 71.4 % High 47-70 [facility] Comment on above: Performed By: #### L 100.0100, L3890.6006, L509.8002, BTS, L509.4006, L3890.6301, L3890.6102 ####[facility] [address] [place], [address] Nucleated RBC (Bld) [#/Vol] 0 10*3/uL Normal 0-5 [facility] Comment on above: Performed By: #### L 100.0100, L3890.6006, L509.8002, BTS, L509.4006, L3890.6301, L3890.6102 ####[facility] [address] [place], [address] Platelet mean volume (Bld) [Entitic vol] 10.1 fL Normal 6.2-12.0 [facility] Comment on above: Performed By: #### L 100.0100, L3890.6006, L509.8002, BTS, L509.4006, L3890.6301, L3890.6102 ####[facility] [address] [place], [address] Platelets (Bld) [#/Vol] 206 10*3/uL Normal 150-450 [facility] Comment on above: Performed By: #### L 100.0100, L3890.6006, L509.8002, BTS, L509.4006, L3890.6301, L3890.6102 ####[facility] [address] [place], [address] RBC (Bld) [#/Vol] 4.22 10*6/uL Normal 4.2-5.4 [facility] Comment on above: Performed By: #### L 100.0100, L3890.6006, L509.8002, BTS, L509.4006, L3890.6301, L3890.6102 ####[facility] [address] [place], [address] RDW SD 47.1 fl High 35.1-43.9 [facility] Comment on above: Performed By: #### L 100.0100, L3890.6006, L509.8002, BTS, L509.4006, L3890.6301, L3890.6102 ####[facility] [address] [place], [address] WBC (Bld) [#/Vol] 8.0 10*3/uL Normal 4.4-11.0 [facility] Comment on above: Performed By: #### L 100.0100, L3890.6006, L509.8002, BTS, L509.4006, L3890.6301, L3890.6102 ####[facility] [address] [place], [address] Eosinophil percentageOrdered By: Dorothy Lee on 11-05-2024 Eosinophils/100 WBC (Bld) 2.8 % 0-5 [facility] Erythrocyte distribution wid th ratioOrdered By: Dorothy Lee on 11-05-2024 Erythrocyte distribution width (RBC) [Ratio] 14.2 % 11.6-14.6 [facility] Erythrocyte distribution wid th standard deviationOrdered By: Dorothy Lee on 11-05-2024 Erythrocyte distribution width (RBC) [Ratio] 47.1 fl High 35.1-43.9 [facility] HIVon 11-05-2024 HIV Non-Reactive Normal Nonreactive [facility] Comment on above: Result Comment: Non- Reactive Reactive Repeatedly reactive samples must be confirmed according to CDC recommended confirmatory algorithms. The subresults for either HIVAG or AHIV can be used as an aid in the selection of the confirmation algorithm for reactive samples. Send out specimens with Reactive results to [facility] for confirmation. Order the HIV antibody detection and differentiation: #[id number] Performed By: #### L 100.0100, L3890.6006, L509.8002, BTS, L509.4006, L3890.6301, L3890.6102 ####[facility] [address] [place], [address] Hematocrit Auto (Bld) [Volum e fraction]Ordered By: Dorothy Lee on 11-05-2024 Hematocrit (Bld) [Volume fraction] 38.3 % 37-47 [facility] Hemoglobin measurementOrdere d By: Dorothy Lee on 11-05-2024 Hemoglobin (Bld) [Mass/Vol] 12.8 g/dL 12.0-15.0 [facility] Hepatitis C Antibodyon 11-05 Hepatitis C Ab Non-Reactive Normal Nonreactive [facility] Comment on above: Result Comment: Reac tive: Presumptive evidence of antibodies to HCV. Follow CDC recommendations for supplemental testing. Non-Reactive: Antibodies to HCV were not detected; does not exclude the possibility of exposure to HCV Reactive Results are presumptive evidence of antibodies to HCV. Follow CDC recommendations for supplemental testing. Order confirmation testing: HCV Quant by PCR testing - HCVPCR #[id number] Non Reactive: < 0.8 Equivocal: >/= 0.8 to < 1.0 Reactive: >/= 1.0 The [facility] requires that a reactive/equivocal HCV antibody result be sent out for confirmation. HCV Quant by PCR testing. Performed By: #### L 100.0100, L3890.6006, L509.8002, BTS, L509.4006, L3890.6301, L3890.6102 ####[facility] [address] [place], [place], [id number] Immature granulocytes/100 WB C Auto (Bld)Ordered By: Dorothy Lee on 11-05-2024 Immature granulocytes/100 WBC (Bld) 1.100 % High 0.0-0.9 [facility] Comment on above: IG% - Immature Granu locytes (promyelocytes, myelocytes and metamyelocytes) > 1% indicates that a LEFT SHIFT is Present. L3890.6102on 11-05-2024 HEP B Surf Ag Non-Reactive Normal Nonreactive [facility] Comment on above: Result Comment: Reac tive: Presumptive evidence of HBV. Repeatedly reactive samples must be confirmed using a neutralization test ([employer] HBsAg Confirmatory Test) Non-Reactive: HBsAg not detected; does not exclude the possibility of exposure to HBV Performed By: #### L 100.0100, L3890.6006, L509.8002, BTS, L509.4006, L3890.6301, L3890.6102 ####[facility] [address] [place], [place], [id number] L509.4006on 11-05-2024 Rubella IgG REAC Normal Nonreactive [facility] Comment on above: Result Comment: Anti body Result: Interpretation Non-Reactive: Non-Immune Reactive: Immune The following results were obtained with the [employer] Rubella IgG assay. Results from assays of other manufacturers cannot be used interchangeably. Performed By: #### L 100.0100, L3890.6006, L509.8002, BTS, L509.4006, L3890.6301, L3890.6102 ####[facility] [address] [place], [address] Laboratory - Chemistry and C hemistry - challengeOrdered By: Rose Man on 11-05-2024 Glucose Ql (U) Negative [facility] Laboratory - Microbiology an d Antimicrobial susceptibilityOrdered By: Dorothy Lee on 11-05-2024 HBV surface Ag Ql (S) Non-Reactive Nonreactive [facility] Comment on above: Reactive: Presumptiv e evidence of HBV. Repeatedly reactive samples must be confirmed using a neutralization test ([employer] HBsAg Confirmatory Test)Non-Reactive: HBsAg not detected; does not exclude the possibility of exposure to HBV Laboratory - UrinalysisOrder ed By: Rose Man on 11-05-2024 Protein Ql (U) Negative [facility] MCV (mean corpuscular volume ) determinationOrdered By: Dorothy Lee on 11-05-2024 MCV (RBC) [Entitic vol] 90.8 fL 81-99 [facility] Mean corpuscular hemoglobin (MCH) determinationOrdered By: Dorothy Lee on 11-05-2024 MCH (RBC) [Entitic mass] 30.3 pg 27.0-32.0 [facility] Mean corpuscular hemoglobin concentration (MCHC) determinationOrdered By: Dorothy Lee on 11-05-2024 MCHC (RBC) [Mass/Vol] 33.4 g/dL 32-36 [facility] Mean platelet volume determi nationOrdered By: Dorothy Lee on 11-05-2024 Platelet mean volume (Bld) [Entitic vol] 10.1 fL 6.2-12.0 [facility] Monocyte percentageOrdered B y: Dorothy Lee on 11-05-2024 Monocytes/100 WBC (Bld) 5.8 % 0-10 [facility] Neutrophil percentageOrdered By: Dorothy Lee on 11-05-2024 Neutrophils/100 WBC (Bld) 71.4 % High 47-70 [facility] No Panel InformationOrdered By: Dorothy Lee on 11-05-2024 HIV (1&2) Antibody Non-Reactive Nonreactive [facility] Comment on above: Non-ReactiveReactive Repeatedly reactive samples must be confirmed according to CDC recommended confirmatory algorithms. The subresults for either HIVAG or AHIV can be used as an aid in the selection of the confirmation algorithm for reactive samples.Send out specimens with Reactive results to [facility] for confirmation.Order the HIV antibody detection and differentiation: #[id number] Nucleated red blood cell per centageOrdered By: Dorothy Lee on 11-05-2024 Nucleated RBC/100 WBC (Bld) [Ratio] 0 % 0-5 [facility] Shaping Machine Operator Office Visit Reporton 11-05-2024 Shaping Machine Operator Office Visit Report [facility] [address], [address] [place] [address] OFFICE VISIT Date of Service: 11/05/24 MR#: [id number] Acct: [id number] Name: MARTIN CASTELLANOS Rep #: [id number] : 1995 Provider: Dr. 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 ??-???-???-??? (more content not included)... Normal [facility] Platelet countOrdered By: Karena Lee on 11-05-2024 Platelets (Bld) [#/Vol] 206 10*3/uL 150-450 [facility] RBC Auto (Bld) [#/Vol]Ordere d By: Dorothy Lee on 11-05-2024 RBC (Bld) [#/Vol] 4.22 10*6/uL 4.2-5.4 [facility] Syphilis Antibodieson 2024 Syphilis Abs Non-Reactive Normal Nonreactive [facility] Comment on above: Performed By: #### L 100.0100, L3890.6006, L509.8002, BTS, L509.4006, L3890.6301, L3890.6102 ####[facility] [address] [place], [place], [id number] Type AND Screenon 11-05-2024 ABO and Rh group Nom (Bld) Blood group A Rh(D) positive Normal [facility] Comment on above: Order Comment: PN Performed By: #### L 100.0100, L3890.6006, L509.8002, BTS, L509.4006, L3890.6301, L3890.6102 ####[facility] [address] [place], [place], [id number] White blood cell (WBC) count Ordered By: Dorothy Lee on 11-05-2024 WBC (Bld) [#/Vol] 8.0 10*3/uL 4.4-11.0 [facility] Chlamydia/GC ZULEMA aptimaon CHLAMY,NUC ACID Negative Normal Negative [facility] Comment on above: Performed By: #### M 100.2200, L7000.1800 #### [facility] [address] [place], [address] GC BY NUC ACID Negative Normal Negative [facility] Comment on above: Result Comment: Perf ormed at: =G - [facility] [address] [id number] Solar Panel Technician: Shy Zelaya MD, Phone: [phone] Performed By: #### M 100.2200, L7000.1800 #### [facility] [address] [place], [address] Urine Cultureon 10-01-2024 URC Below infection leve l. Mixed Gram Positive Organisms [place] Count 1000-10,000 MIXC Mixed contaminants. Submit a new specimen if indicated. Normal [facility] Comment on above: Performed By: #### M 100.2200, L7000.1800 #### [facility] [address] [place], [address] C. trachomatis rRNA ZULEMA+prob e Ql (Unsp spec)Ordered By: Dorothy Lee on 09-29-2024 Chlamydia DNA (ZULEMA) Negative Negative [facility] Chlamydia trachomatis rRNA d etection by probe and target amplification methodOrdered By: Dorothy Lee on 09-29-2024 C. trachomatis rRNA ZULEMA+probe Ql (Unsp spec) Negative Negative [facility] Neisseria gonorrhoeae nuclei c acid detection by amplified probe techniqueOrdered By: Dorothy Lee on 09-29-2024 N. gonorrhoeae DNA ZULEMA+probe Ql (Unsp spec) Negative Negative [facility] Comment on above: Performed at: =G - [facility] [address] [id number] Director: Shy Zelaya MD, Phone: [phone] Shaping Machine Operator Office Visit Reporton 09-29-2024 Shaping Machine Operator Office Visit Report [facility]'s [address], [address] [place] [address] OFFICE VISIT Date of Service: 09/29/24 MR#: [id number] Acct: [id number] Name: MARTIN CASTELLANOS Rep #: [id number] : 1995 Provider: Dr. 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 Normal [facility] Urine cultureOrdered By: Pelon Lee on 09-29-2024 Bacteria identified Cx Nom (U) Positive Abnormal [facility] Hemoglobin A1Con 07-22-2024 Glucose [Mass/Vol] 103 mg/dL Normal [facility] Comment on above: Result Comment: The ADA and AACC recommend providing the estimated average glucose result to permit better patient understanding of their HBA1c result. Performed at [facility] [employer], [address] [place] [address] . HbA1c (Bld) [Mass fraction] 5.2 % Normal 4.0-6.0 [facility] Iron Binding Capon 5 % Fe Saturation 36 % Normal 20-55 [facility] Iron [Mass/Vol] 108 ug/dL Normal 37-145 [facility] Total Fe Binding Cap 303 ug/dL Normal 250-450 [facility] Unbound Fe Bind Cap 195 ug/dL Normal 112-347 [facility] Comment on above: Result Comment: Perf ormed at [facility], [address] [place] [address] . Vitamin D 25 OHon 07-22-2024 Vitamin D 25 [place] 28.3 ng/mL Low 30.0-100.0 [facility] Comment on above: Result Comment: Reference Range: Vitamin D status Range Deficiency <20 ng/mL Mild Deficiency 20-30 ng/mL Sufficiency 30-100 ng/mL Toxicity >100 ng/mL Performed at [facility], [address] [place] [address] . CBC With Platelet and Differ entialon 07-21-2024 Basophils (Bld) [#/Vol] 0.0 10*3/uL Normal 0.0-0.2 [facility] Comment on above: Performed By: #### C BCWD #### [facility] [address] [place] [address] Basophils/100 WBC (Bld) 0.4 % Normal [facility] Comment on above: Performed By: #### C BCWD #### [facility] [address] [place] [address] Eosinophils (Bld) [#/Vol] 0.1 10*3/uL Normal 0.0-0.7 [facility] Comment on above: Performed By: #### C BCWD #### [facility] [address] [place] [address] Eosinophils/100 WBC (Bld) 1.6 % Normal [facility] Comment on above: Performed By: #### C BCWD #### [facility] [address] [place] [address] Erythrocyte distribution width (RBC) [Ratio] 12.8 % Normal 11.5-14.5 [facility] Comment on above: Performed By: #### C BCWD #### [facility] [address] [place] [address] Hematocrit (Bld) [Volume fraction] 42.8 % Normal 37.0-47.0 [facility] Comment on above: Performed By: #### C BCWD #### [facility] [address] [place] [address] Hemoglobin (Bld) [Mass/Vol] 14.1 g/dL Normal 12.0-16.0 [facility] Comment on above: Performed By: #### C BCWD #### [facility] [address] [place] [address] Lymphocytes (Bld) [#/Vol] 1.9 10*3/uL Normal 1.0-4.8 [facility] Comment on above: Performed By: #### C BCWD #### [facility] [address] [place] [address] Lymphocytes/100 WBC (Bld) 25.4 % Normal [facility] Comment on above: Performed By: #### C BCWD #### [facility] [address] [place] [address] MCH (RBC) [Entitic mass] 29.6 pg Normal 27.0-31.3 [facility] Comment on above: Performed By: #### C BCWD #### [facility] [address] [place] [address] MCHC 32.9 % Low 33.0-37.0 [facility] Comment on above: Performed By: #### C BCWD #### [facility] [address] [place] [address] MCV (RBC) [Entitic vol] 89.9 fL Normal 79.4-94.8 [facility] Comment on above: Performed By: #### C BCWD #### [facility] [address] [place] [address] Monocytes (Bld) [#/Vol] 0.4 10*3/uL Normal 0.2-0.8 [facility] Comment on above: Performed By: #### C BCWD #### [facility] [address] [place] [address] Monocytes/100 WBC (Bld) 5.6 % Normal [facility] Comment on above: Performed By: #### C BCWD #### [facility] [address] [place] [address] Neutrophils (Bld) [#/Vol] 4.9 10*3/uL Normal 1.4-6.5 [facility] Comment on above: Performed By: #### C BCWD #### [facility] [address] [place] [address] Neutrophils/100 WBC (Bld) 66.1 % Normal [facility] Comment on above: Performed By: #### C BCWD #### [facility] [address] [place] [address] Platelets (Bld) [#/Vol] 234 10*3/uL Normal 130-400 [facility] Comment on above: Performed By: #### C BCWD #### [facility] [address] [address] RBC (Bld) [#/Vol] 4.76 10*6/uL Normal 4.20-5.40 [facility] Comment on above: Performed By: #### C BCWD #### [facility] [address] [place] [address] WBC (Bld) [#/Vol] 7.4 10*3/uL Normal 4.8-10.8 [facility] Comment on above: Performed By: #### C BCWD #### [facility] [address] [place] [address] Comprehensive Metabolic Pane j carlos 07-21-2024 Albumin [Mass/Vol] 4.4 g/dL Normal 3.5-4.6 [facility] Comment on above: Performed By: #### C MP #### [facility] [address] [place] [address] ALP [Catalytic activity/Vol] 66 U/L Normal 40-130 [facility] Comment on above: Performed By: #### C MP #### [facility] [address] [place] [address] ALT [Catalytic activity/Vol] 31 U/L Normal 0-33 [facility] Comment on above: Performed By: #### C MP #### [facility] [address] [place] [address] Anion gap [Moles/Vol] 12 mmol/L Normal 9-15 [facility] Comment on above: Performed By: #### C MP #### [facility] [address] [place] [address] AST [Catalytic activity/Vol] 21 U/L Normal 0-35 [facility] Comment on above: Performed By: #### C MP #### [facility] [address] [place] [address] Bilirubin [Mass/Vol] 0.3 mg/dL Normal 0.2-0.7 [facility] Comment on above: Performed By: #### C MP #### [facility] [address] [place] [address] Calcium [Mass/Vol] 9.2 mg/dL Normal 8.5-9.9 [facility] Comment on above: Performed By: #### C MP #### [facility] [address] [place] [address] Chloride [Moles/Vol] 101 mmol/L Normal 95-107 [facility] Comment on above: Performed By: #### C MP #### [facility] [address] [place] [address] CO2 [Moles/Vol] 25 mmol/L Normal 20-31 [facility] Comment on above: Performed By: #### C MP #### [facility] [address] [place] [address] Creatinine [Mass/Vol] 0.74 mg/dL Normal 0.50-0.90 [facility] Comment on above: Performed By: #### C MP #### [facility] [address] [place] [address] GFR >90.0 Normal >60 [facility] Comment on above: Result Comment: [...] secretion. Performed By: #### C MP #### [facility] [address] [place] [address] Globulin (S) [Mass/Vol] 3.4 g/dL Normal 2.3-3.5 [facility] Comment on above: Performed By: #### C MP #### [facility] [address] [place] [address] Glucose [Mass/Vol] 76 mg/dL Normal 70-99 [facility] Comment on above: Performed By: #### C MP #### [facility] [address] [place] [address] Potassium [Moles/Vol] 4.0 mmol/L Normal 3.4-4.9 [facility] Comment on above: Performed By: #### C MP #### [facility] [address] [place] [address] Protein [Mass/Vol] 7.8 g/dL Normal 6.3-8.0 [facility] Comment on above: Performed By: #### C MP #### [facility] [address] [place] [address] Sodium [Moles/Vol] 138 mmol/L Normal 135-144 [facility] Comment on above: Performed By: #### C MP #### [facility] [address] [place] [address] Urea nitrogen [Mass/Vol] 8 mg/dL Normal 6-20 [facility] Comment on above: Performed By: #### C MP #### [facility] [address] [place] [address] Lipid Panel Fastingon 2024 Cholesterol [Mass/Vol] 213 mg/dL Critically high 0-199 [facility] Comment on above: Result Comment: ATP III Cholesterol Classification is Borderline High. Performed By: #### L IPDF #### [facility] [address] [place] [address] HDL Cholesterol Fasting 64 mg/dL Critically high 40-59 [facility] Comment on above: Result Comment: [...] CHD Performed By: #### L IPDF #### [facility] [address] [place] [address] LDL Cholesterol (Calculated) Fasting 137 mg/dL Critically high 0-129 [facility] Comment on above: Result Comment: ATT III Classification is Borderline High. Performed By: #### L IPDF #### [facility] [address] [place] [address] Triglycerides Fasting 60 mg/dL Normal 0-150 [facility] Comment on above: Result Comment: ATP III Triglycerides Classification is Normal. Performed By: #### L IPDF #### [facility] [address] [place] [address] TSH w/Reflexon 07-21-2024 TSH w/Reflex 2.260 uIU/mL Normal 0.440-3.86 [facility] Comment on above: Result Comment: Free T4 will automatically reflex with a TSH result of <0.270 or >4.200 Performed By: #### T SHR #### [facility] [address] [place] [address] PAP I-G w/rfx hrHPV-Aptimaon 05-05-2024 ADEQ Comment Normal . [facility] Comment on above: Order Comment: Speci men Comment: [id number] Specimen Comment: Source.............Cervix Specimen Comment: LMP / Prev Treat...[id number] Specimen Comment: No. of containers..01 ThinPrep Vial Result Comment: Sati sfactory for evaluation. Endocervical and/or squamous metaplastic cells (endocervical component) are present. Performed By: #### L 7400.0353 #### [facility] [address] [place], [place], [id number] COMM . Normal . [facility] Comment on above: Order Comment: Speci men Comment: [id number] Specimen Comment: Source.............Cervix Specimen Comment: LMP / Prev Treat...[id number] Specimen Comment: No. of containers..01 ThinPrep Vial Performed By: #### L 7400.0353 #### [facility] [address] [place], [place], [id number] COMMENT Comment Normal . [facility] Comment on above: Order Comment: Speci men Comment: [id number] Specimen Comment: Source.............Cervix Specimen Comment: LMP / Prev Treat...[id number] Specimen Comment: No. of containers..01 ThinPrep Vial Result Comment: This liquid based ThinPrep(R) pap test was screened with the use of an image guided system. Performed By: #### L 7400.0353 #### [facility] [address] [place], [place], [id number] DIAG Comment Normal . [facility] Comment on above: Order Comment: Speci men Comment: [id number] Specimen Comment: Source.............Cervix Specimen Comment: LMP / Prev Treat...[id number] Specimen Comment: No. of containers..01 ThinPrep Vial Result Comment: NEGA TIVE FOR INTRAEPITHELIAL LESION OR MALIGNANCY. Performed By: #### L 7400.0353 #### [facility] [address] [place], [address] HPV RFLX Comment Normal . [facility] Comment on above: Order Comment: Speci men Comment: [id number] Specimen Comment: Source.............Cervix Specimen Comment: LMP / Prev Treat...[id number] Specimen Comment: No. of containers..01 ThinPrep Vial Result Comment: The HPV DNA reflex criteria were not met with this specimen result therefore, no HPV testing was performed. Performed at: [address] [id number] Solar Panel Technician: Shy Zelaya MD, Phone: [phone] Performed By: #### L 7400.0353 #### [facility] [address] [place], [address] PAPSMR Comment Normal . [facility] Comment on above: Order Comment: Speci men Comment: [id number] Specimen Comment: Source.............Cervix Specimen Comment: LMP / Prev Treat...[id number] Specimen Comment: No. of containers..01 ThinPrep Vial Result Comment: The Pap smear is a screening test designed to aid in the detection of premalignant and malignant conditions of the uterine cervix. It is not a diagnostic procedure and should not be used as the sole means of detecting cervical cancer. Both false-positive and false-negative reports do occur. Performed By: #### L 7400.0353 #### [facility] [address] [place], [address] PERFORM Comment Normal . [facility] Comment on above: Order Comment: Speci men Comment: [id number] Specimen Comment: Source.............Cervix Specimen Comment: LMP / Prev Treat...[id number] Specimen Comment: No. of containers..01 ThinPrep Vial Result Comment: Pura Marinelli, Job Coaching (ASCP) Performed By: #### L 7400.0353 #### [facility] [address] [place], [address] Shaping Machine Operator Office Visit Reporton 04-28-2024 Shaping Machine Operator Office Visit Report [facility]'s [address], [address] [place] [address] OFFICE VISIT Date of Service: 04/28/24 MR#: [id number] Acct: [id number] Name: MARTIN CASTELLANOS Rep #: [id number] : 1995 Provider: LUCINDA rodriguez Age/Sex: 28/F [place] [facility] [place]: Signed Intake Vital Signs 04/13/23 10:59 04/28/24 11:14 04/28/24 11:18 Height 5 ft 4 in 5 ft 4 in 5 ft 4 in Weight: 159 lb 6 oz BMI 27.3 BP 118/76 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 Denies concerns. Moving to [place] soon. Needs refill zoloft and altavera. Last [...] oriented to person and oriented to place [facility] Head: normal to inspection Neck [...] - Vagina (more content not included)... Normal [facility] Absolute lymphocyte counton 02-04-2022 Lymphocytes Auto (Unsp spec) [#/Vol] 1.29 10*3/uL 0.83-4.51 [facility] Work Phone: Basophil percentageon 2021 Basophils/100 WBC (Bld) 0.4 % 0-1 [facility] Work Phone: Eosinophils/100 WBC (Bld) 1.5 % 0-5 [facility] Work Phone: Neutrophils (Bld) [#/Vol] 5.0 10*3/uL 2.0-7.7 [facility] Work Phone: Neutrophils/100 WBC (Bld) 70.1 % 47-70 [facility] Work Phone: WBC (Bld) [#/Vol] 7.2 10*3/uL 4.4-11.0 [facility] Work Phone: Blood erythrocytes count (nu mber/volume)on 02-04-2022 RBC (Bld) [#/Vol] 4.09 10*6/uL 4.2-5.4 [facility] Work Phone: Blood hemoglobin measurement (mass/volume)on 02-04-2022 Hemoglobin (Bld) [Mass/Vol] 11.4 g/dL 12.0-15.0 [facility] Work Phone: Blood lymphocytes/100 leukoc yteson 02-04-2022 Lymphocytes/100 WBC (Bld) 18.0 % 19-41 [facility] Work Phone: Blood monocytes/100 leukocyt eson 02-04-2022 Monocytes/100 WBC (Bld) 8.7 % 0-10 [facility] Work Phone: Blood platelet mean volumeon 02-04-2022 Platelet mean volume (Bld) [Entitic vol] 10.9 fL 6.2-12.0 [facility] Work Phone: Determination of erythrocyte mean corpuscular volume (MCV)on 02-04-2022 MCV (RBC) [Entitic vol] 87.3 fL 81-99 [facility] Work Phone: Hematocrit Auto (Bld) [Volum e fraction]on 02-04-2022 Hematocrit (Bld) [Volume fraction] 35.7 % 37-47 [facility] Work Phone: Laboratory - Hematology and Cell countson 02-04-2022 Anisocytosis Ql (Bld) 1+ [facility] Work Phone: Erythrocyte distribution width (RBC) [Entitic vol] 63.8 fL 35.1-43.9 [facility] Work Phone: Erythrocyte distribution width (RBC) [Ratio] 20.4 % 11.6-14.6 [facility] Work Phone: Immature granulocytes/100 WBC (Bld) 1.300 % 0.0-0.9 [facility] Work Phone: Comment on above: IG% - Immature Granu locytes (promyelocytes, myelocytes and metamyelocytes) > 1% indicates that a LEFT SHIFT is Present. MCH (RBC) [Entitic mass] 27.9 pg 27.0-32.0 [facility] Work Phone: Nucleated RBC/100 WBC (Bld) [Ratio] 0 % 0-5 [facility] Work Phone: MCHC Auto (RBC) [Mass/Vol]on 02-04-2022 MCHC (RBC) [Mass/Vol] 31.9 g/dL 32-36 [facility] Work Phone: Platelets bldon 02-04-2022 Platelets (Bld) [#/Vol] 152 10*3/uL 150-450 [facility] Work Phone: Laboratory - Chemistry and C hemistry - challengeon 01-27-2022 Glucose Ql (U) Negative [facility] Work Phone: Laboratory - Urinalysison Protein Ql (U) Negative [facility] Work Phone: Laboratory - Chemistry and C hemistry - challengeon 01-17-2022 Glucose Ql (U) Negative [facility] Work Phone: Laboratory - Urinalysison Protein Ql (U) Negative [facility] Work Phone: Laboratory - Chemistry and C hemistry - challengeon 01-11-2022 Glucose Ql (U) Negative [facility] Work Phone: Laboratory - Urinalysison Protein Ql (U) Negative [facility] Work Phone: Laboratory - Chemistry and C hemistry - challengeon 12-20-2021 Glucose Ql (U) Negative [facility] Work Phone: Laboratory - Urinalysison Protein Ql (U) Negative [facility] Work Phone: Absolute lymphocyte counton 12-14-2021 Lymphocytes Auto (Unsp spec) [#/Vol] 1.41 10*3/uL 0.83-4.51 [facility] Work Phone: Basophil percentageon 2021 Basophil percentage 0 SEEN /hpf 0-5 [facility] Work Phone: Basophils/100 WBC (Bld) 0.3 % 0-1 [facility] Work Phone: Bilirubin [Mass/Vol] 0.20 mg/dL 0.20-1.00 [facility] Work Phone: Comment on above: For patients on eltr ombopag therapy, use of Dimension [place] TBIL is not recommended. Chloride [Moles/Vol] 108 mmol/L 98-107 [facility] Work Phone: Eosinophils/100 WBC (Bld) 0.5 % 0-5 [facility] Work Phone: Glucose [Mass/Vol] 81 mg/dL 74-106 [facility] Work Phone: Neutrophils (Bld) [#/Vol] 7.0 10*3/uL 2.0-7.7 [facility] Work Phone: Neutrophils/100 WBC (Bld) 75.7 % 47-70 [facility] Work Phone: Potassium [Moles/Vol] 3.7 mmol/L 3.5-5.1 [facility] Work Phone: Protein [Mass/Vol] 6.9 g/dL 6.4-8.2 [facility] Work Phone: Sodium [Moles/Vol] 138 mmol/L 136-145 [facility] Work Phone: WBC (Bld) [#/Vol] 9.2 10*3/uL 4.4-11.0 [facility] Work Phone: Bilirubin Test strip Ql (U)o n 12-14-2021 Bilirubin Ql (U) Negative Negative [facility] Work Phone: Blood erythrocytes count (nu mber/volume)on 12-14-2021 RBC (Bld) [#/Vol] 3.70 10*6/uL 4.2-5.4 [facility] Work Phone: Blood hemoglobin measurement (mass/volume)on 12-14-2021 Hemoglobin (Bld) [Mass/Vol] 10.5 g/dL 12.0-15.0 [facility] Work Phone: Blood lymphocytes/100 leukoc yteson 12-14-2021 Lymphocytes/100 WBC (Bld) 15.3 % 19-41 [facility] Work Phone: Blood monocytes/100 leukocyt eson 12-14-2021 Monocytes/100 WBC (Bld) 6.1 % 0-10 [facility] Work Phone: Blood platelet mean volumeon 12-14-2021 Platelet mean volume (Bld) [Entitic vol] 10.2 fL 6.2-12.0 [facility] Work Phone: Determination of erythrocyte mean corpuscular volume (MCV)on 12-14-2021 MCV (RBC) [Entitic vol] 87.3 fL 81-99 [facility] Work Phone: Hematocrit Auto (Bld) [Volum e fraction]on 12-14-2021 Hematocrit (Bld) [Volume fraction] 32.3 % 37-47 [facility] Work Phone: Ketones Test strip Ql (U)on 12-14-2021 Ketones Ql (U) 50 mg/dl Negative [facility] Work Phone: Laboratory - Chemistry and C hemistry - challengeon 12-14-2021 ALP [Catalytic activity/Vol] 69 U/L 45-117 [facility] Work Phone: ALT [Catalytic activity/Vol] 38 U/L 13-56 [facility] Work Phone: CO2 [Moles/Vol] 24.0 mmol/L 21.0-32.0 [facility] Work Phone: Globulin (S) [Mass/Vol] 4.0 g/dL 2.2-4.2 [facility] Work Phone: Urea nitrogen/Creatinine [Mass ratio] 14.2 mg/mg 10-20 [facility] Work Phone: Laboratory - Hematology and Cell countson 12-14-2021 Erythrocyte distribution width (RBC) [Entitic vol] 41.1 fL 35.1-43.9 [facility] Work Phone: Erythrocyte distribution width (RBC) [Ratio] 13.1 % 11.6-14.6 [facility] Work Phone: Immature granulocytes/100 WBC (Bld) 2.100 % 0.0-0.9 [facility] Work Phone: Comment on above: IG% - Immature Granu locytes (promyelocytes, myelocytes and metamyelocytes) > 1% indicates that a LEFT SHIFT is Present. MCH (RBC) [Entitic mass] 28.4 pg 27.0-32.0 [facility] Work Phone: Nucleated RBC/100 WBC (Bld) [Ratio] 0 % 0-5 [facility] Work Phone: MCHC Auto (RBC) [Mass/Vol]on 12-14-2021 MCHC (RBC) [Mass/Vol] 32.5 g/dL 32-36 [facility] Work Phone: Mucus LM Ql (Urine sed)on Mucus Ql (Urine sed) 0 SEEN /hpf [facility] Work Phone: Nitrite Test strip Ql (U)on 12-14-2021 Nitrite Ql (U) Negative Negative [facility] Work Phone: No Panel Informationon 12-14 Estimated Creatinine Clearance Calc 116.85 ml/min [facility] Work Phone: Estimated GFR (MDRD) Amer 146 mL/min >60 [facility] Work Phone: Comment on above: GFR Calc Estimated GFR (MDRD) Non-Af Amer 121 mL/min >60 [facility] Work Phone: Comment on above: Non- GFR Calc Thyroid Stimulating Hormone (TSH) 2.74 uIU/mL 0.358-3.74 [facility] Work Phone: Platelets bldon 12-14-2021 Platelets (Bld) [#/Vol] 189 10*3/uL 150-450 [facility] Work Phone: Protein Test strip Ql (U)on 12-14-2021 Protein Ql (U) Negative Negative [facility] Work Phone: Serum or plasma albumin tommy urement (mass/volume)on 12-14-2021 Albumin [Mass/Vol] 2.9 g/dL 3.2-5.0 [facility] Work Phone: Serum or plasma albumin/glob ulin mass ratioon 12-14-2021 Albumin/Globulin [Mass ratio] 0.7 {ratio} 0.9-2.4 [facility] Work Phone: Serum or plasma calcium tommy urement (mass/volume)on 12-14-2021 Calcium [Mass/Vol] 9.0 mg/dL 8.5-10.1 [facility] Work Phone: Serum or plasma creatinine m easurement (mass/volume)on 12-14-2021 Creatinine [Mass/Vol] 0.63 mg/dL 0.55-1.02 [facility] Work Phone: Comment on above: The validity of the calculated GFR & GFRAA in patients over 70 years has not been determined. Clinical correlation is essential. Serum or plasma urea nitroge n measurement (mass/volume)on 12-14-2021 Urea nitrogen [Mass/Vol] 9 mg/dL 7-18 [facility] Work Phone: Squamous epithelial cells de tection in urine sediment by light microscopyon 12-14-2021 Epithelial cells.squamous LM Ql (Urine sed) 0 SEEN /hpf 5-10 [facility] Work Phone: Thin prep Papanicolaou smear with manual screeningon 12-14-2021 Thin prep Papanicolaou smear with manual screening 29 U/L 15-37 [facility] Work Phone: Thin prep Papanicolaou smear with manual screening 6 5-15 [facility] Work Phone: Urine blood detectionon 07-0 RBC Ql (U) Negative Negative [facility] Work Phone: RBC Ql (U) 0 SEEN /hpf 0-5 [facility] Work Phone: Urine clarityon 12-14-2021 Clarity (U) Clear Clear [facility] Work Phone: Urine color determinationon 12-14-2021 Color (U) Yellow Yellow [facility] Work Phone: Urine glucose detectionon Glucose Ql (U) Normal mg/dl Normal [facility] Work Phone: Urine leukocyte esterase det ection by dipstickon 12-14-2021 Leukocyte esterase Test strip Ql (U) Negative Negative [facility] Work Phone: Urine pHon 12-14-2021 pH (U) 6.5 [pH] 5.0 - 8.0 [facility] Work Phone: Urine sediment bacteria coun t by microscopy (number/high power field)on 12-14-2021 Bacteria LM.HPF (Urine sed) [#/Area] 0 /[HPF] None Seen [facility] Work Phone: Urine specific gravity measu rementon 12-14-2021 Specific gravity (U) [Rel density] 1.010 1.002-1.030 [facility] Work Phone: Urobilinogen Auto test strip Ql (U)on 12-14-2021 Urobilinogen Ql (U) Normal mg/dl Normal [facility] Work Phone: Laboratory - Chemistry and C hemistry - challengeon 12-08-2021 Glucose Ql (U) Negative [facility] Work Phone: Laboratory - Urinalysison Protein Ql (U) Negative [facility] Work Phone: Laboratory - Chemistry and C hemistry - challengeon 11-25-2021 Glucose Ql (U) Negative [facility] Work Phone: Laboratory - Urinalysison Protein Ql (U) Negative [facility] Work Phone: Laboratory - Chemistry and C hemistry - challengeon 11-08-2021 Glucose Ql (U) Negative [facility] Work Phone: Laboratory - Urinalysison Protein Ql (U) Negative [facility] Work Phone: Absolute lymphocyte counton 10-26-2021 Lymphocytes Auto (Unsp spec) [#/Vol] 1.42 10*3/uL 0.83-4.51 [facility] Work Phone: Basophil percentageon 2021 Basophils/100 WBC (Bld) 0.7 % 0-1 [facility] Work Phone: Eosinophils/100 WBC (Bld) 1.9 % 0-5 [facility] Work Phone: Neutrophils (Bld) [#/Vol] 5.0 10*3/uL 2.0-7.7 [facility] Work Phone: Neutrophils/100 WBC (Bld) 66.6 % 47-70 [facility] Work Phone: WBC (Bld) [#/Vol] 7.6 10*3/uL 4.4-11.0 [facility] Work Phone: Blood erythrocytes count (nu mber/volume)on 10-26-2021 RBC (Bld) [#/Vol] 3.73 10*6/uL 4.2-5.4 [facility] Work Phone: Blood hemoglobin measurement (mass/volume)on 10-26-2021 Hemoglobin (Bld) [Mass/Vol] 11.4 g/dL 12.0-15.0 [facility] Work Phone: Blood lymphocytes/100 leukoc yteson 10-26-2021 Lymphocytes/100 WBC (Bld) 18.8 % 19-41 [facility] Work Phone: Blood monocytes/100 leukocyt eson 10-26-2021 Monocytes/100 WBC (Bld) 8.2 % 0-10 [facility] Work Phone: Blood platelet mean volumeon 10-26-2021 Platelet mean volume (Bld) [Entitic vol] 9.5 fL 6.2-12.0 [facility] Work Phone: Determination of erythrocyte mean corpuscular volume (MCV)on 10-26-2021 MCV (RBC) [Entitic vol] 93.8 fL 81-99 [facility] Work Phone: Gestational diabetes screen 1-hour screen with 50g oral glucose loadon 10-26-2021 Glucose 1 Hr post 50 g glucose PO [Mass/Vol] 96 mg/dL 70-140 [facility] Work Phone: Hematocrit Auto (Bld) [Volum e fraction]on 10-26-2021 Hematocrit (Bld) [Volume fraction] 35.0 % 37-47 [facility] Work Phone: Laboratory - Chemistry and C hemistry - challengeon 10-26-2021 Glucose Ql (U) Negative [facility] Work Phone: Laboratory - Hematology and Cell countson 10-26-2021 Erythrocyte distribution width (RBC) [Entitic vol] 44.0 fL 35.1-43.9 [facility] Work Phone: Erythrocyte distribution width (RBC) [Ratio] 12.7 % 11.6-14.6 [facility] Work Phone: Immature granulocytes/100 WBC (Bld) 3.800 % 0.0-0.9 [facility] Work Phone: Comment on above: IG% - Immature Granu locytes (promyelocytes, myelocytes and metamyelocytes) > 1% indicates that a LEFT SHIFT is Present. MCH (RBC) [Entitic mass] 30.6 pg 27.0-32.0 [facility] Work Phone: Nucleated RBC/100 WBC (Bld) [Ratio] 0 % 0-5 [facility] Work Phone: Laboratory - Urinalysison Protein Ql (U) Negative [facility] Work Phone: MCHC Auto (RBC) [Mass/Vol]on 10-26-2021 MCHC (RBC) [Mass/Vol] 32.6 g/dL 32-36 [facility] Work Phone: Platelets bldon 10-26-2021 Platelets (Bld) [#/Vol] 211 10*3/uL 150-450 [facility] Work Phone: Laboratory - Chemistry and C hemistry - challengeon 09-23-2021 Glucose Ql (U) Negative [facility] Work Phone: Laboratory - Urinalysison Protein Ql (U) Negative [facility] Work Phone: Laboratory - Chemistry and C hemistry - challengeon 08-23-2021 Glucose Ql (U) Negative [facility] Work Phone: Laboratory - Urinalysison Protein Ql (U) Negative [facility] Work Phone: Laboratory - Chemistry and C hemistry - challengeon 07-26-2021 Glucose Ql (U) Negative [facility] Work Phone: Laboratory - Urinalysison Protein Ql (U) Negative [facility] Work Phone: Absolute lymphocyte counton 06-30-2021 Lymphocytes Auto (Unsp spec) [#/Vol] 1.37 10*3/uL 0.83-4.51 [facility] Work Phone: Basophil percentageon 2021 Basophils/100 WBC (Bld) 0.4 % 0-1 [facility] Work Phone: Eosinophils/100 WBC (Bld) 0.5 % 0-5 [facility] Work Phone: Neutrophils (Bld) [#/Vol] 5.9 10*3/uL 2.0-7.7 [facility] Work Phone: Neutrophils/100 WBC (Bld) 74.2 % 47-70 [facility] Work Phone: WBC (Bld) [#/Vol] 8.0 10*3/uL 4.4-11.0 [facility] Work Phone: Blood erythrocytes count (nu mber/volume)on 06-30-2021 RBC (Bld) [#/Vol] 4.25 10*6/uL 4.2-5.4 [facility]: Blood hemoglobin measurement (mass/volume)on 06-30-2021 Hemoglobin (Bld) [Mass/Vol] 12.8 g/dL 12.0-15.0 [facility] Work Phone: Blood lymphocytes/100 leukoc yteson 06-30-2021 Lymphocytes/100 WBC (Bld) 17.2 % 19-41 [facility] Work Phone: Blood monocytes/100 leukocyt eson 06-30-2021 Monocytes/100 WBC (Bld) 7.2 % 0-10 [facility] Work Phone: Blood platelet mean volumeon 06-30-2021 Platelet mean volume (Bld) [Entitic vol] 9.8 fL 6.2-12.0 [facility] Work Phone: Chlamydia trachomatis rRNA d etection by probe and target amplification methodon 06-30-2021 C. trachomatis rRNA ZULEMA+probe Ql (Unsp spec) Negative Negative [facility] Work Phone: Culture, urineon 06-30-2021 Bacteria identified Cx Nom (U) Culture exhibits no growth. [facility] Work Phone: Determination of erythrocyte mean corpuscular volume (MCV)on 06-30-2021 MCV (RBC) [Entitic vol] 89.4 fL 81-99 [facility] Work Phone: HIV 1 and HIV-2 antibody ass ay with HIV-1 p24 antigen detectionon 06-30-2021 HIV 1+2 Ab+HIV1 p24 Ag IA Ql Non-Reactive Nonreactive [facility] Work Phone: Hematocrit Auto (Bld) [Volum e fraction]on 06-30-2021 Hematocrit (Bld) [Volume fraction] 38.0 % 37-47 [facility] Work Phone: Laboratory - Drug toxicology on 06-30-2021 Amphetamines Ql (U) Negative [facility] Work Phone: Benzodiazepines Ql (U) Negative [facility] Work Phone: Cannabinoids Screen Ql (U) Negative [facility] Work Phone: Cocaine Ql (U) Negative [facility] Work Phone: Opiates Ql (U) Negative [facility] Work Phone: Laboratory - Hematology and Cell countson 06-30-2021 Erythrocyte distribution width (RBC) [Entitic vol] 42.3 fL 35.1-43.9 [facility] Work Phone: Erythrocyte distribution width (RBC) [Ratio] 12.8 % 11.6-14.6 [facility] Work Phone: Immature granulocytes/100 WBC (Bld) 0.500 % 0.0-0.9 [facility] Work Phone: Comment on above: IG% - Immature Granu locytes (promyelocytes, myelocytes and metamyelocytes) > 1% indicates that a LEFT SHIFT is Present. MCH (RBC) [Entitic mass] 30.1 pg 27.0-32.0 [facility] Work Phone: Nucleated RBC/100 WBC (Bld) [Ratio] 0 % 0-5 [facility] Work Phone: Laboratory - Microbiology an d Antimicrobial susceptibilityon 06-30-2021 N. gonorrhoeae DNA ZULEMA+probe Ql (Unsp spec) Negative Negative [facility] Work Phone: Comment on above: Performed at: =[facility] [address] [id number] Director: Shy Zelaya MD, Phone: [phone] MCHC Auto (RBC) [Mass/Vol]on 06-30-2021 MCHC (RBC) [Mass/Vol] 33.7 g/dL 32-36 [facility] Work Phone: No Panel Informationon 06-30 Urine Barbiturates Screen Negative [facility] Work Phone: Urine Drug Screen Comment [facility] Work Phone: Comment on above: CONFIRMATORY TESTING [...] USE TESTMNEMONIC: [facility] Urine Methadone Screen Negative [facility] Work Phone: Urine Methamphetamine-MDMA Screen Negative [facility] Work Phone: Hepatitis B Surface Antigen Non-Reactive Nonreactive [facility] Work Phone: Hepatitis C Antibody Non-Reactive Nonreactive [facility] Work Phone: Comment on above: Non Reactive: < 0.8 Equivocal: >/= 0.8 to < 1.0 Reactive: >/= 1.0The CDC recommends that a reactive/equivocal HCV antibody result be followed up by the HCV Nucleic Acid Amplificationtest (886399) Rubella IgG Antibody Reactive Nonreactive [facility] Work Phone: Comment on above: Antibody Results Int erpretation of Immune Status Non Reactive Presumed Non-Immune Equivocal Equivocal Reactive Presumed Immune Platelets bldon 06-30-2021 Platelets (Bld) [#/Vol] 194 10*3/uL 150-450 [facility] Work Phone: Serum Treponema species anti body detectionon 06-30-2021 Treponema sp Ab Ql (S) Non-Reactive [facility] Work Phone: Urine phencyclidine (PCP) de tectionon 06-30-2021 Phencyclidine Ql (U) Negative [facility] Work Phone: COVID-19 Antigenon 1 [...] its performance Subhash Disclaimer characteristic determined by [facility] and Subhash Disclaimer validated at [facility]. This Subhash Disclaimer test has not [...] is terminated or revoked sooner. PERFORMED BY: [place] [address] PATHOLOGIST DONKEY ENGINE FIRER/FIREMAN JORDON BOWDEN M.D. Normal [facility] Comment on above: Performed By: #### S OFKRALIEG, COVID-19 SUBHASH #### [facility] [address] [place] [address] Subhash Ag Negativeon 03-11-20 21 Subhash Ag Negative Negative Normal Negative [facility] Comment on above: Result Comment: This is a duplicate Subhash SARS Antigen (BRYSON) result to be used for statistical tracking purpose only. PERFORMED BY: [place] [address] PATHOLOGIST DONKEY ENGINE FIRER/FIREMAN JORDON BOWDEN M.D. Performed By: #### S OFIANEG, COVID-19 SUBHASH #### [facility] [address] [place], [place] [id number] [facility] Comprehensive Metabolic Empo n 02-09-2021 Albumin [Mass/Vol] 4.3 g/dL Normal 3.2-5.5 [facility] Comment on above: Performed By: #### E BS CMP, LIPID #### [facility] [address] Albumin/Globulin [Mass ratio] 1.5 {ratio} Normal [facility] Comment on above: Performed By: #### E BS CMP, LIPID #### [facility] [address] ALP [Catalytic activity/Vol] 39 U/L Normal 32-92 [facility] Comment on above: Performed By: #### E BS CMP, LIPID #### [facility] [address] ALT [Catalytic activity/Vol] 12 U/L Normal 10-60 [facility] Comment on above: Performed By: #### E BS CMP, LIPID #### [facility] [address] [place] [address] AST [Catalytic activity/Vol] 15 U/L Normal 10-42 [facility] Comment on above: Performed By: #### E BS CMP, LIPID #### [facility] [address] [place] [address] Bilirubin [Mass/Vol] 0.5 mg/dL Normal 0.3-1.2 [facility] Comment on above: Performed By: #### E BS CMP, LIPID #### [facility] [address] [place] [address] [place] Calcium [Mass/Vol] 9.5 mg/dL Normal 8.2-10.2 [facility] Comment on above: Performed By: #### E BS CMP, LIPID #### [facility] [address] [place] [address] [place] Chloride [Moles/Vol] 102 mmol/L Normal 95-114 [facility] Comment on above: Performed By: #### E BS CMP, LIPID #### [facility] [address] [place] [address] CO2 [Moles/Vol] 23.8 mmol/L Normal 22.0-30.0 [facility] Comment on above: Performed By: #### E BS CMP, LIPID #### [facility] [address] Creatinine [Mass/Vol] 0.83 mg/dL Normal 0.44-1.03 [facility] Comment on above: Performed By: #### E BS CMP, LIPID #### [facility] [address] Estimated GFR ( Radha > [address] [facility] Comment on above: Result Comment: GFR estimated reference range: According to KDOQI guidelines, <60 ml/min/1.73m2 is sufficient to diagnose a patient with chronic kidney disease. Performed By: #### E BS CMP, LIPID #### [facility] [address] Estimated GFR (Non- Am > [address] [facility] Comment on above: Performed By: #### E BS CMP, LIPID #### [facility] [address] Globulin (S) [Mass/Vol] 2.9 g/dL Normal [facility] Comment on above: Performed By: #### E BS CMP, LIPID #### [address] Glucose [Mass/Vol] 77 mg/dL Normal 70-100 [facility] Comment on above: Performed By: #### E BS CMP, LIPID #### [facility] [address] [place] [address] [place] Potassium [Moles/Vol] 3.4 mmol/L Low 3.5-5.1 [facility] Comment on above: Performed By: #### E BS CMP, LIPID #### [facility] [address] [place] [id number] [place] Protein [Mass/Vol] 7.2 g/dL Normal 6.1-7.9 [facility] Comment on above: Performed By: #### E BS CMP, LIPID #### [facility] [address] [place] [phone] [place] Sodium [Moles/Vol] 136 mmol/L Normal 136-146 [facility] Comment on above: Performed By: #### E BS CMP, LIPID #### [facility] [address] [place] [address] [place] Urea nitrogen [Mass/Vol] 7 mg/dL Low - [facility] Comment on above: Performed By: #### E BS CMP, LIPID #### [facility] [address] [place] [address] [place] Lipid Panelon 02-09-2021 Cholesterol [Mass/Vol] 218 mg/dL High 140-200 [facility] Comment on above: Result Comment: Chol less than 200 mg/dl low risk Chol 201-239 mg/dl borderline risk Chol 240 mg/dl and greater high risk Performed By: #### E BS CMP, LIPID #### [facility] [address] Cholesterol in HDL [Mass/Vol] 75 mg/dL Normal 35-85 [facility] Comment on above: Result Comment: HDL CHOL ATP-III CLASSIFICATION Cardiovascular Risk HDL > or equal to 60 mg/dL LOW HDL < 40 mg/dL HIGH Performed By: #### E BS CMP, LIPID #### [facility] [address] [place] [address] [place] Cholesterol.total/Chol esterol in HDL [Mass ratio] 2.9 {ratio} Normal <5.0 [facility] Comment on above: Result Comment: PERF ORMED BY: [place] [address] PATHOLOGIST DONKEY ENGINE FIRER/FIREMAN JORDON BOWDEN M.D. Performed By: #### E BS CMP, LIPID #### [facility] [address] [place] [address] [place] LDL Cholesterol,Calculated 126 mg/dL High 0-100 [facility] Comment on above: Result Comment: LDL ATP III CLASSIFICATION LDL less than 100 mg/dL Optimal LDL 100-129 mg/dL Near or above optimal LDL 130-159 mg/dL Borderline high LDL 160-189 mg/dL High LDL greater than 189 mg/dL Very high Performed By: #### E BS CMP, LIPID #### [facility] [address] [place] [address] [place] Triglyceride w/Reflex 84 mg/dL Normal 35-149 [facility] Comment on above: Result Comment: TRIG ATP III CLASSIFICATION TRIG less than 150 mg/dL Normal TRIG 150-199 mg/dL Borderline high TRIG 200-500 mg/dL High TRIG greater than 500 mg/dL Very high Standard traceable to the Center for Disease Conrtrol and Prevention (CDC) test method. Performed By: #### E BS CMP, LIPID #### [facility] [address] VLDL CHOLESTEROL 16 mg/dL Normal [facility] Comment on above: Performed By: #### E BS CMP, LIPID #### [facility] [address] [place] [address] [facility] HPV Auto Reflex PAP (33690)O rdered By: Lamp Mechanic on 08-09-2020 HPV Auto Reflex PAP (55647) RUST Normal [facility]; [facility] Work Phone: Comment on above: NEGATIVE FOR INTRAEP ITHELIAL LESION OR MALIGNANCY.Satisfactory for evaluation. No endocervical component is identified.Z01.419Amanda Monica Tee, Job Coaching (ASCP) Source.............C ervix;EndocervixNo. of containers..01 ThinPrep VialPATIENT NOT FASTINGPERFORMED BY: LabBerlin Metropolitan OfficeFqeimtlwhd[address] [id number] Information: [id number] HPV Auto Reflex PAP (59920) . Normal [facility]; [facility] Work Phone: Comment on above: Source.............C ervix;EndocervixNo. of containers..01 ThinPrep VialPATIENT NOT FASTINGPERFORMED BY: MyPublisher[address] [id number] Information: [id number] HPV Auto Reflex PAP (16587) PAPSMR Normal [facility]; [facility] [...] of containers..01 ThinPrep VialPATIENT NOT FASTINGPERFORMED BY: [employer] [place] [address] [id number] Information: [id number] Thin prep Pap (31388)Ordered By: Lamp Mechanic on 06-17-2019 Thin prep Pap (53535) 21-24 Normal [facility]; [facility] Work Phone: Comment on above: Source.............C ervix;EndocervixNo. of containers..01 ThinPrep VialPATIENT NOT FASTINGPERFORMED BY: =G [employer] [id number] BY: [employer]120 [facility] Instituterleston [place] [id number] Information: [id number] IGP, CtNg, rfx Aptima HPV CUon 06-10-2018 C. trachomatis rRNA ZULEMA+probe Ql (Cvx) Negative Normal [facility] Work Phone: Comment on above: No. of containers..0 1 ThinPrep VialPERFORMED BY: =G [employer] [place] [address] [id number] BY: [employer] [id number] Microscopic observation Other stain Nom (Unsp spec) . Normal Com[facility] Work Phone: Comment on above: No. of containers..0 1 ThinPrep VialPERFORMED BY: =G LabEpy.[facility] [place] [id number] BY: WB [facility] Scrfpukqea[address] [place] [facility] [place] [id number] N. gonorrhoeae rRNA ZULEMA+probe Ql (Cvx) Negative Normal [facility] Work Phone: Comment on above: No. of containers..0 1 ThinPrep VialPERFORMED BY: =G [facility] Qequzlnbbn080 [place] [facility] [place] [id number] BY: WB [facility] Zqifmlnvdy298 [place] [facility] [place] [id number] Pathology report final diagnosis Narrative [facility] Normal Com[facility] e [facility] Work Phone: Comment on above: NEGATIVE FOR INTRAEP ITHELIAL LESION AND MALIGNANCY.Satisfactory for evaluation. No endocervical component is identified.Z01.419Bruce Ck Bruner Job Coaching (ASCP) No. of containers..0 1 ThinPrep VialPERFORMED BY: =G [facility] Zkqxzxqjel246 [place] [facility] [place] [id number] BY: WB Lab[facility] Metropolitan OfficeHflsxvlqcc299 [facility] CenterJessicapasc[facility] [place] [id number] IGP, CtNg, rfx Aptima HPV ASCU PAPSMR [...] containers..0 1 ThinPrep VialPERFORMED BY: =G [facility] Wytxsrjwee231 [place] [facility] [place] [id number] BY: WB [facility] Ncduhinsch744 [facility] CenterEvanrencompass [facility] [place] [id number] Thin prep Pap (41146) (no ST D testing)on 06-10-2018 Thin prep Pap (24296) (no STD testing) 21-24 Normal [facility] Work Phone: Comment on above: No. of containers..0 1 ThinPrep VialPERFORMED BY: =G [facility] [id number] BY: WB [facility] [address] [id number] Information: [id number] Rapid Strep Test, Office ([id number])Ordered By: Katelyn Aburto on 05-23-2017 S. pyogenes Ag EIA Ql (Throat) Negative Normal [facility]; [facility] Work Phone: S. pyogenes Ag IA Ql (Unsp spec) Negative Normal [facility] Work Phone: VARICELLA-ZOSTER ANTBODY ([id number] [id number])on 09-11-2016 VZV IgG IA Qn (S) 3001 {index} Normal Compr ehensive [facility] Work Phone: Comment on above: Negative <135 Equivo tristin 135 - 165 Positive >165 A positive result generally indicates exposure to the pathogen or administration of specific immunoglobulins, but it is not indication of active infection or stage of disease. PATIENT NOT FASTINGP ERFORMED BY: [facility] Hjsdow0319 [facility] [id number] Information: [id number] NuSwab STD (trich/BV/GC/clemente W/ Herpes) ([id number])on 08-25-2016 A. vaginae DNA ZULEMA+probe Ql (Vag fld) Low - 0 Normal [facility] Internal [facility] Work Phone: Comment on above: PATIENT NOT FASTINGP ERFORMED BY: [facility] Adpcxmdnto2869 [facility] [id number] Information: SRC:[place] Bacterial vaginosis associated bacterium 2 DNA ZULEMA+probe Ql (Vag fld) Low - 0 Normal [facility] Work Phone: Comment on above: PATIENT NOT FASTINGP ERFORMED BY: [address] [id number] Information: SRC:[place] C. albicans DNA ZULEMA+probe Ql (Vag fld) Negative Normal Comprehen [facility] Internal Medicine Work Phone: Comment on above: PATIENT NOT FASTINGP ERFORMED BY: [address] [id number] Information: SRC:[place] C. glabrata DNA ZULEMA+probe Ql (Vag fld) Negative Normal Comprehen [facility] Internal Medicine Work Phone: Comment on above: This test was develo ped and its performance characteristics determinedby [facility]. It has not been cleared or approved by the Food and DrugAdministration. The FDA has determined that such clearance orapproval is not necessary. PATIENT NOT FASTINGP ERFORMED BY: [address] [id number] Information: SRC:[place] C. trachomatis rRNA ZULEMA+probe Ql (Unsp spec) Negative Normal [facility] Work Phone: Comment on above: PATIENT NOT FASTINGP ERFORMED BY: [address] [id number] Information: SRC:VA HSV 1 DNA ZULEMA+probe Ql (Unsp spec) Negative Normal [facility] Work Phone: Comment on above: PATIENT NOT FASTINGP ERFORMED BY: [address] [id number] Information: SRC:VA HSV 2 DNA ZULEMA+probe Ql (Unsp spec) Negative Normal [facility] Work Phone: Comment on above: PATIENT NOT FASTINGP ERFORMED BY: [address] [id number] Information: SRC:VA Megasphaera sp type 1 DNA [...] was developed and its performance characteristicsdetermined by [employer]. It has not been cleared or approvedby the Food and Drug Administration. The FDA has determinedthat such clearance or approval is not necessary. PATIENT NOT FASTINGP ERFORMED BY: [address] [id number] Information: SRC:[place] N. gonorrhoeae rRNA ZULEMA+probe Ql (Unsp spec) Negative Normal [facility] Work Phone: Comment on above: PATIENT NOT FASTINGP ERFORMED BY: [address] [id number] Information: SRC:VA T. vaginalis rRNA ZULEMA+probe Ql (Unsp spec) Negative Normal [facility] Work Phone: Comment on above: PATIENT NOT FASTINGP ERFORMED BY: [address] [id number] Information: SRC:[place] NuSwab STD (trich/BV/GC/clemente W/ Herpes) ([id number])Ordered By: Lamp Mechanic on 08-25-2016 C. albicans DNA ZULEMA+probe Ql (Vag fld) Negative Normal Comprehen [facility]; [facility] Work Phone: Comment on above: PATIENT NOT FASTINGP ERFORMED BY: [address] [id number] Information: SRC:[place] C. glabrata DNA ZULEMA+probe Ql (Vag fld) Negative Normal Comprehen sive [facility]; [facility] Work Phone: Comment on above: This test was develo ped and its performance characteristics determinedby [employer] (acquired by [employer] in 2014)[facility]. It has not been cleared or approved by the Food and DrugAdministration. The FDA has determined that such clearance orapproval is not necessary. PATIENT NOT FASTINGP ERFORMED BY: [address] [id number] Information: SRC:[place] C. trachomatis rRNA ZULEMA+probe Ql (Unsp spec) Negative Normal [facility]; [facility] Work Phone: Comment on above: PATIENT NOT FASTINGP ERFORMED BY: [address] [id number] Information: SRC:[place] HSV 1 DNA ZULEMA+probe Ql (Unsp spec) Negative Normal [facility]; [facility] Work Phone: Comment on above: PATIENT NOT FASTINGP ERFORMED BY: [address] [id number] Information: SRC:VA HSV 2 DNA ZULEMA+probe Ql (Unsp spec) Negative Normal [facility]; [facility] Work Phone: Comment on above: PATIENT NOT FASTINGP ERFORMED BY: [address] [id number] Information: SRC:[place] N. gonorrhoeae rRNA ZULEMA+probe Ql (Unsp spec) Negative Normal [facility]; [facility] Work Phone: Comment on above: PATIENT NOT FASTINGP ERFORMED BY: [address] [id number] Information: SRC:[place] T. vaginalis rRNA ZULEMA+probe Ql (Unsp spec) Negative Normal [facility]; [facility] Work Phone: Comment on above: PATIENT NOT FASTINGP ERFORMED BY: [address] [id number] Information: SRC:[place] Pap IG (Image Guided)on 08-09 Microscopic observation Other stain Nom (Unsp spec) . Normal Comprehens marie Internal Medicine Work Phone: Comment on above: Source.............C ervix;EndocervixNo. of containers..01 CYTYC Thin Prep VialPATIENT NOT FASTINGPERFORMED BY: =G [facility] [address]xyrgn[address] [id number] BY: WB [facility] Vlkephailk[address] [id number] Pathology report final diagnosis Narrative SPRCS Normal Comprehensiv e Internal Medicine Work Phone: Comment on above: NEGATIVE FOR INTRAEP ITHELIAL LESION AND MALIGNANCY.Satisfactory for evaluation. No endocervical component is identified.Z01.419Rensarahi Can, Job Coaching ([facility]) Source.............C ervix;EndocervixNo. of containers..01 CYTYC Thin Prep VialPATIENT NOT FASTINGPERFORMED BY: =G MyPublisher[address] [id number] BY: [facility] U[address]fubra[address] [id number] Pap IG (Image Guided) PAPSMR Normal [facility] Internal Medicine Work Phone: Comment [...] Thin Prep VialPATIENT NOT FASTINGPERFORMED BY: =G [employer] [place] [address] [id number] BY: [employer] [address]vrt[address] [id number] Thin Prep Pap ([id number])on 08-09 Thin Prep Pap (55243) AGE6 Normal [facility] prehensive Internal Medicine Work Phone: Comment on above: <21 or >65 or no age provided Source.............C ervix;EndocervixNo. of containers..01 CYTYC Thin Prep VialPATIENT NOT FASTINGPERFORMED BY: =G MyPublisher03 [address] StreetPillars4LifeGeisinger-[facility]istown [facility] [id number] BY: [facility] [id number] Information: [id number] No Panel Information Group B Streptococcus Culture Group B Beta Streptococcus is not isolated. [facility] Work Phone: Vital Signs Date Time Vital Sign Value Performing Clinician Facility 04-06-2025 14:20-0400 Body height 162.56 cm Kiya Percy FACILITIES ADMINISTRATOR-C Work Phone: [facility] 04-06-2025 14:18-0400 Body mass index (BMI) [Ratio] 35.4 kg/m2 Kiya Percy FACILITIES ADMINISTRATOR-C Work Phone: [facility] 04-06-2025 14:18-0400 Body weight 93.49 kg Kiya Percy FACILITIES ADMINISTRATOR-C Work Phone: [facility] 04-06-2025 14:18-0400 Diastolic blood pressure 81 mm[Hg] Kiya Percy FACILITIES ADMINISTRATOR-C Work Phone: [facility] 04-06-2025 14:18-0400 Systolic blood pressure 126 mm[Hg] Kiya Percy FACILITIES ADMINISTRATOR-C Work Phone: [facility] 03-23-2025 13:40-0400 Body mass index (BMI) [Ratio] 35.5 kg/m2 Kiya Percy FACILITIES ADMINISTRATOR-C Work Phone: [facility] 03-23-2025 13:40-0400 Body weight 93.92 kg Kiya Percy FACILITIES ADMINISTRATOR-C Work Phone: [facility] 03-23-2025 13:40-0400 Diastolic blood pressure 81 mm[Hg] Kiya Percy FACILITIES ADMINISTRATOR-C Work Phone: [facility] 03-23-2025 13:40-0400 Systolic blood pressure 112 mm[Hg] Kiya Percy FACILITIES ADMINISTRATOR-C Work Phone: [facility] 03-09-2025 09:27-0400 Body height 162.56 cm Kiya Percy FACILITIES ADMINISTRATOR-C Work Phone: [facility] 03-09-2025 09:27-0400 Body mass index (BMI) [Ratio] 34.9 kg/m2 Kiya Percy FACILITIES ADMINISTRATOR-C Work Phone: [facility] 03-09-2025 09:27-0400 Body weight 92.24 kg Kiya Percy FACILITIES ADMINISTRATOR-C Work Phone: [facility] 03-09-2025 09:27-0400 Diastolic blood pressure 79 mm[Hg] Kiya Percy FACILITIES ADMINISTRATOR-C Work Phone: [facility] 03-09-2025 09:27-0400 Systolic blood pressure 119 mm[Hg] Kiya Percy FACILITIES ADMINISTRATOR-C Work Phone: [facility] 02-25-2025 09:45-0400 Body height 162.56 cm Kiya Percy FACILITIES ADMINISTRATOR-C Work Phone: [facility] 02-25-2025 09:45-0400 Body mass index (BMI) [Ratio] 34.5 kg/m2 Kiya Percy FACILITIES ADMINISTRATOR-C Work Phone: [facility] 02-25-2025 09:45-0400 Body weight 91.28 kg Kiya Percy FACILITIES ADMINISTRATOR-C Work Phone: [facility] 02-25-2025 09:45-0400 Diastolic blood pressure 82 mm[Hg] Kiya Percy FACILITIES ADMINISTRATOR-C Work Phone: [facility] 02-25-2025 09:45-0400 Systolic blood pressure 131 mm[Hg] Kiya Percy FACILITIES ADMINISTRATOR-C Work Phone: [facility] 02-11-2025 09:41-0400 Body height 162.56 cm Kiya Percy FACILITIES ADMINISTRATOR-C Work Phone: [facility] 02-11-2025 09:39-0400 Body mass index (BMI) [Ratio] 34.3 kg/m2 Kiya Percy FACILITIES ADMINISTRATOR-C Work Phone: [facility] 02-11-2025 09:39-0400 Body weight 90.77 kg Kiya Percy FACILITIES ADMINISTRATOR-C Work Phone: [facility] 02-11-2025 09:39-0400 Diastolic blood pressure 80 mm[Hg] Kiya Percy FACILITIES ADMINISTRATOR-C Work Phone: [facility] 02-11-2025 09:39-0400 Systolic blood pressure 127 mm[Hg] Kiya Percy FACILITIES ADMINISTRATOR-C Work Phone: [facility] 01-26-2025 09:18-0400 Body height 162.56 cm Kiya Percy FACILITIES ADMINISTRATOR-C Work Phone: [facility] 01-26-2025 09:18-0400 Body mass index (BMI) [Ratio] 33.8 kg/m2 Kiya Percy FACILITIES ADMINISTRATOR-C Work Phone: [facility] 01-26-2025 09:18-0400 Body weight 89.41 kg Kiya Percy FACILITIES ADMINISTRATOR-C Work Phone: [facility] 01-26-2025 09:18-0400 Diastolic blood pressure 76 mm[Hg] Kiya Percy FACILITIES ADMINISTRATOR-C Work Phone: [facility] 01-26-2025 09:18-0400 Systolic blood pressure 131 mm[Hg] Kiya Percy FACILITIES ADMINISTRATOR-C Work Phone: [facility] 12-31-2024 08:38-0400 Body height 162.56 cm Kiya Percy FACILITIES ADMINISTRATOR-C Work Phone: [facility] 12-31-2024 08:37-0400 Body mass index (BMI) [Ratio] 33 kg/m2 Kiya Percy FACILITIES ADMINISTRATOR-C Work Phone: [facility] 12-31-2024 08:37-0400 Body weight 87.31 kg Kiya Percy FACILITIES ADMINISTRATOR-C Work Phone: [facility] 12-31-2024 08:37-0400 Diastolic blood pressure 74 mm[Hg] Kiya Percy FACILITIES ADMINISTRATOR-C Work Phone: [facility] 12-31-2024 08:37-0400 Systolic blood pressure 108 mm[Hg] Kiya Percy FACILITIES ADMINISTRATOR-C Work Phone: [facility] 12-01-2024 10:16-0400 Body height 162.56 cm Kiya Percy FACILITIES ADMINISTRATOR-C Work Phone: [facility] 12-01-2024 10:16-0400 Body mass index (BMI) [Ratio] 31.1 kg/m2 Kiya Percy FACILITIES ADMINISTRATOR-C Work Phone: [facility] 12-01-2024 10:16-0400 Body weight 82.21 kg Kiya Percy FACILITIES ADMINISTRATOR-C Work Phone: [facility] 12-01-2024 10:16-0400 Diastolic blood pressure 73 mm[Hg] Kiya Percy FACILITIES ADMINISTRATOR-C Work Phone: [facility] 12-01-2024 10:16-0400 Systolic blood pressure 137 mm[Hg] Kiya Percy FACILITIES ADMINISTRATOR-C Work Phone: [facility] 11-05-2024 08:44-0400 Body height 162.56 cm Kiya Percy FACILITIES ADMINISTRATOR-C Work Phone: [facility] 11-05-2024 08:41-0400 Body mass index (BMI) [Ratio] 30.7 kg/m2 Kiya Percy FACILITIES ADMINISTRATOR-C Work Phone: [facility] 11-05-2024 08:41-0400 Body weight 81.24 kg Kiya Percy FACILITIES ADMINISTRATOR-C Work Phone: [facility] 11-05-2024 08:41-0400 Diastolic blood pressure 85 mm[Hg] Kiya Percy FACILITIES ADMINISTRATOR-C Work Phone: [facility] 11-05-2024 08:41-0400 Systolic blood pressure 125 mm[Hg] Kiya Percy FACILITIES ADMINISTRATOR-C Work Phone: [facility] 09-29-2024 10:27-0400 Body height 162.56 cm Kiya Percy FACILITIES ADMINISTRATOR-C Work Phone: [facility] 09-29-2024 10:27-0400 Body mass index (BMI) [Ratio] 29.4 kg/m2 Kiya Percy FACILITIES ADMINISTRATOR-C Work Phone: [facility] 09-29-2024 10:27-0400 Body weight 77.67 kg Kiya Percy FACILITIES ADMINISTRATOR-C Work Phone: [facility] 09-29-2024 10:27-0400 Diastolic blood pressure 78 mm[Hg] Kiya Percy FACILITIES ADMINISTRATOR-C Work Phone: [facility] 09-29-2024 10:27-0400 Systolic blood pressure 129 mm[Hg] Kiya Percy FACILITIES ADMINISTRATOR-C Work Phone: [facility] 09-19-2022 08:17-0400 Body height 167.64 cm Lilian Sepidehrb CHIEF TECHNOLOGIST [facility]; [facility] Work Phone: 09-19-2022 08:17-0400 Body mass index (BMI) [Ratio] 24.86 kg/m2 Lilian Slarb CHIEF TECHNOLOGIST [facility]; [facility] Work Phone: 09-19-2022 08:17-0400 Body surface area Derived from formula 1.79 m2 Lilian Slarb CHIEF TECHNOLOGIST [facility]; [facility] Work Phone: 09-19-2022 08:17-0400 Body temperature 98.1 [degF] Lilian Slarb CHIEF TECHNOLOGIST [facility]; [facility] Work Phone: Comment on above: Method: Temporal 09-19-2022 08:17-0400 Body weight 69.85 kg Lilian Slarb CHIEF TECHNOLOGIST [facility]; [facility] Work Phone: 09-19-2022 08:17-0400 Diastolic blood pressure 76 mm[Hg] Lilian Slarb CHIEF TECHNOLOGIST [facility]; [facility] Work Phone: Comment on above: Patient Position: Sitting; Cuff Location : Left Arm; Cuff Size: Standard 09-19-2022 08:17-0400 Heart rate 95 /min Lilian Slarb CHIEF TECHNOLOGIST [facility]; [facility] Work Phone: Comment on above: Pattern: Regular 09-19-2022 08:17-0400 Respiratory rate 16 /min Lilian Pineda CHIEF TECHNOLOGIST [facility]; [facility] Work Phone: Comment on above: Pattern: Unlabored 09-19-2022 08:17-0400 SaO2% (BldA) [Mass fraction] 98 % Lilian Pineda CHIEF TECHNOLOGIST [facility]; [facility] Work Phone: Comment on above: Room air 09-19-2022 08:17-0400 Systolic blood pressure 114 mm[Hg] Lilian Pineda CHIEF TECHNOLOGIST [facility]; [facility] Work Phone: Comment on above: Patient Position: Sitting; Cuff Location : Left Arm; Cuff Size: Standard 02-06-2022 08:32-0400 Body temperature 97.7 [degF] FACILITIES ADMINISTRATOR-C Sowmya Rodrigueza FACILITIES ADMINISTRATOR Work Phone: [facility] Work Phone: 02-06-2022 08:32-0400 Diastolic blood pressure 86 mm[Hg] FACILITIES ADMINISTRATOR-C Sowmya Moralesesa FACILITIES ADMINISTRATOR Work Phone: [facility] Work Phone: 02-06-2022 08:32-0400 Heart rate 76 /min FACILITIES ADMINISTRATOR-C Sowmya Rodrigueza FACILITIES ADMINISTRATOR Work Phone: [facility] Work Phone: 02-06-2022 08:32-0400 Respiratory rate 16 /min FACILITIES ADMINISTRATOR-C Sowmya Moralesesa FACILITIES ADMINISTRATOR Work Phone: [facility] Work Phone: 02-06-2022 08:32-0400 SaO2% (BldA) [Mass fraction] 96 % FACILITIES ADMINISTRATOR-C Sowmya Moralesesa FACILITIES ADMINISTRATOR Work Phone: [facility] Work Phone: 02-06-2022 08:32-0400 Systolic blood pressure 128 mm[Hg] FACILITIES ADMINISTRATOR-C Sowmya Moralesesa FACILITIES ADMINISTRATOR Work Phone: [facility] Work Phone: 02-04-2022 07:12-0400 Body height 162.56 cm FACILITIES ADMINISTRATOR-C Sowmya Cidavida FACILITIES ADMINISTRATOR Work Phone: [facility] Work Phone: 02-04-2022 07:12-0400 Body mass index (BMI) [Ratio] 32.8 kg/m2 FACILITIES ADMINISTRATOR-C Sowmya Ciesa FACILITIES ADMINISTRATOR Work Phone: [facility] Work Phone: 02-04-2022 07:12-0400 Body weight 86.7 kg FACILITIES ADMINISTRATOR-C Sowmya Ciesa FACILITIES ADMINISTRATOR Work Phone: [facility] Work Phone: 02-03-2022 14:33-0400 Body mass index (BMI) [Ratio] 32.4 kg/m2 FACILITIES ADMINISTRATOR-C Sowmya Ciesa FACILITIES ADMINISTRATOR Work Phone: [facility] Work Phone: 02-03-2022 14:33-0400 Body weight 85.72 kg FACILITIES ADMINISTRATOR-C Sowmya Ciesa FACILITIES ADMINISTRATOR Work Phone: [facility] Work Phone: 02-03-2022 14:33-0400 Diastolic blood pressure 60 mm[Hg] FACILITIES ADMINISTRATOR-C Sowmya Ciesa FACILITIES ADMINISTRATOR Work Phone: [facility] Work Phone: 02-03-2022 14:33-0400 Systolic blood pressure 124 mm[Hg] FACILITIES ADMINISTRATOR-C Sowmya Ciesa FACILITIES ADMINISTRATOR Work Phone: [facility] Work Phone: 01-27-2022 10:58-0400 Body mass index (BMI) [Ratio] 32 kg/m2 FACILITIES ADMINISTRATOR-C Sowmya Ciesa FACILITIES ADMINISTRATOR Work Phone: [facility] Work Phone: 01-27-2022 10:58-0400 Body weight 84.59 kg FACILITIES ADMINISTRATOR-C Sowmya Ciesa FACILITIES ADMINISTRATOR Work Phone: [facility] Work Phone: 01-27-2022 10:58-0400 Diastolic blood pressure 76 mm[Hg] FACILITIES ADMINISTRATOR-C Sowmya Ciesa FACILITIES ADMINISTRATOR Work Phone: [facility] Work Phone: 01-27-2022 10:58-0400 Systolic blood pressure 128 mm[Hg] FACILITIES ADMINISTRATOR-C Sowmya Ciesa FACILITIES ADMINISTRATOR Work Phone: [facility] Work Phone: 01-17-2022 11:19-0400 Diastolic blood pressure 70 mm[Hg] FACILITIES ADMINISTRATOR-C Sowmya Ciesa FACILITIES ADMINISTRATOR Work Phone: [facility] Work Phone: 01-17-2022 11:19-0400 Systolic blood pressure 98 mm[Hg] FACILITIES ADMINISTRATOR-C Sowmya Ciesa FACILITIES ADMINISTRATOR Work Phone: [facility] Work Phone: 01-17-2022 11:19-0400 Body mass index (BMI) [Ratio] 31.7 kg/m2 FACILITIES ADMINISTRATOR-C Sowmya Ciesa FACILITIES ADMINISTRATOR Work Phone: [facility] Work Phone: 01-17-2022 11:19-0400 Body weight 83.91 kg FACILITIES ADMINISTRATOR-C Sowmya Ciesa FACILITIES ADMINISTRATOR Work Phone: [facility] Work Phone: 01-11-2022 08:54-0400 Body mass index (BMI) [Ratio] 31.4 kg/m2 FACILITIES ADMINISTRATOR-C Sowmya Ciesa FACILITIES ADMINISTRATOR Work Phone: [facility] Work Phone: 01-11-2022 08:54-0400 Body weight 83 kg FACILITIES ADMINISTRATOR-C Sowmya Ciesa FACILITIES ADMINISTRATOR Work Phone: [facility] Work Phone: 01-11-2022 08:54-0400 Diastolic blood pressure 82 mm[Hg] FACILITIES ADMINISTRATOR-C Sowmya Ciesa FACILITIES ADMINISTRATOR Work Phone: [facility] Work Phone: 01-11-2022 08:54-0400 Systolic blood pressure 122 mm[Hg] FACILITIES ADMINISTRATOR-C Sowmya Ciesa FACILITIES ADMINISTRATOR Work Phone: [facility] Work Phone: 01-02-2022 13:19-0400 Body height 162.56 cm FACILITIES ADMINISTRATOR-C Sowmya Ciesa FACILITIES ADMINISTRATOR Work Phone: [facility] Work Phone: 01-02-2022 13:18-0400 Body mass index (BMI) [Ratio] 30.9 kg/m2 FACILITIES ADMINISTRATOR-C Sowmya Ciesa FACILITIES ADMINISTRATOR Work Phone: [facility] Work Phone: 01-02-2022 13:18-0400 Body weight 81.64 kg FACILITIES ADMINISTRATOR-C Sowmya Carmenesa FACILITIES ADMINISTRATOR Work Phone: [facility] Work Phone: 01-02-2022 13:18-0400 Diastolic blood pressure 74 mm[Hg] FACILITIES ADMINISTRATOR-C Sowmya Moralesesa FACILITIES ADMINISTRATOR Work Phone: [facility] Work Phone: 01-02-2022 13:18-0400 Systolic blood pressure 112 mm[Hg] FACILITIES ADMINISTRATOR-C Sowmya Moralesesa FACILITIES ADMINISTRATOR Work Phone: [facility] Work Phone: 12-27-2021 09:35-0400 Body mass index (BMI) [Ratio] 30.2 kg/m2 FACILITIES ADMINISTRATOR-C Sowmya Ciesa FACILITIES ADMINISTRATOR Work Phone: [facility] Work Phone: 12-27-2021 09:35-0400 Body weight 79.83 kg FACILITIES ADMINISTRATOR-C Sowmya Ciesa FACILITIES ADMINISTRATOR Work Phone: [facility] Work Phone: 12-27-2021 09:35-0400 Diastolic blood pressure 79 mm[Hg] FACILITIES ADMINISTRATOR-C Sowmya Ciesa FACILITIES ADMINISTRATOR Work Phone: [facility] Work Phone: 12-27-2021 09:35-0400 Heart rate 107 /min FACILITIES ADMINISTRATOR-C Sowmya Rodrigueza FACILITIES ADMINISTRATOR Work Phone: [facility] Work Phone: 12-27-2021 09:35-0400 Respiratory rate 16 /min FACILITIES ADMINISTRATOR-C Sowmya Rodrigueza FACILITIES ADMINISTRATOR Work Phone: [facility] Work Phone: 12-27-2021 09:35-0400 SaO2% (BldA) [Mass fraction] 99 % FACILITIES ADMINISTRATOR-C Sowmya Rodrigueza FACILITIES ADMINISTRATOR Work Phone: [facility] Work Phone: 12-27-2021 09:35-0400 Systolic blood pressure 129 mm[Hg] FACILITIES ADMINISTRATOR-C Sowmya Rodrigueza FACILITIES ADMINISTRATOR Work Phone: [facility] Work Phone: 12-20-2021 10:39-0400 Body mass index (BMI) [Ratio] 30.2 kg/m2 FACILITIES ADMINISTRATOR-C Sowmya Rodrigueza FACILITIES ADMINISTRATOR Work Phone: [facility] Work Phone: 12-20-2021 10:39-0400 Body weight 79.88 kg FACILITIES ADMINISTRATOR-C Sowmya Rodrigueza FACILITIES ADMINISTRATOR Work Phone: [facility] Work Phone: 12-20-2021 10:39-0400 Diastolic blood pressure 64 mm[Hg] FACILITIES ADMINISTRATOR-C Sowmya Rodrigueza FACILITIES ADMINISTRATOR Work Phone: [facility] Work Phone: 12-20-2021 10:39-0400 Systolic blood pressure 132 mm[Hg] FACILITIES ADMINISTRATOR-C Sowmya Moralesesa FACILITIES ADMINISTRATOR Work Phone: [facility] Work Phone: 12-14-2021 13:28-0400 Diastolic blood pressure 70 mm[Hg] FACILITIES ADMINISTRATOR-C Sowmya Moralesesa FACILITIES ADMINISTRATOR Work Phone: [facility] Work Phone: 12-14-2021 13:28-0400 Heart rate 105 /min FACILITIES ADMINISTRATOR-C Sowmya Baldwin FACILITIES ADMINISTRATOR Work Phone: [facility] Work Phone: 12-14-2021 13:28-0400 Respiratory rate 16 /min FACILITIES ADMINISTRATOR-C Sowmya Baldwin FACILITIES ADMINISTRATOR Work Phone: [facility] Work Phone: 12-14-2021 13:28-0400 SaO2% (BldA) [Mass fraction] 98 % FACILITIES ADMINISTRATOR-C Sowmya Baldwin FACILITIES ADMINISTRATOR Work Phone: [facility] Work Phone: 12-14-2021 13:28-0400 Systolic blood pressure 115 mm[Hg] FACILITIES ADMINISTRATOR-C Sowmya Baldwin FACILITIES ADMINISTRATOR Work Phone: [facility] Work Phone: 12-14-2021 10:57-0400 Body height 162.56 cm FACILITIES ADMINISTRATOR-C Sowmya Baldwin FACILITIES ADMINISTRATOR Work Phone: [facility] Work Phone: 12-14-2021 10:57-0400 Body mass index (BMI) [Ratio] 29.5 kg/m2 FACILITIES ADMINISTRATOR-C Sowmya Baldwin FACILITIES ADMINISTRATOR Work Phone: [facility] Work Phone: 12-14-2021 10:57-0400 Body temperature 97.8 [degF] FACILITIES ADMINISTRATOR-C Sowmya Baldwin FACILITIES ADMINISTRATOR Work Phone: [facility] Work Phone: 12-14-2021 10:57-0400 Body weight 78.01 kg FACILITIES ADMINISTRATOR-C Sowmya Baldwin FACILITIES ADMINISTRATOR Work Phone: [facility] Work Phone: 12-08-2021 09:02-0400 Body mass index (BMI) [Ratio] 29.5 kg/m2 FACILITIES ADMINISTRATOR-C Sowmya Baldwin FACILITIES ADMINISTRATOR Work Phone: [facility] Work Phone: 12-08-2021 09:02-0400 Body weight 78.01 kg FACILITIES ADMINISTRATOR-C Sowmya Ciesa FACILITIES ADMINISTRATOR Work Phone: [facility] Work Phone: 12-08-2021 09:02-0400 Diastolic blood pressure 56 mm[Hg] FACILITIES ADMINISTRATOR-C Sowmya Ciesa FACILITIES ADMINISTRATOR Work Phone: [facility] Work Phone: 12-08-2021 09:02-0400 Systolic blood pressure 124 mm[Hg] FACILITIES ADMINISTRATOR-C Sowmya Ciesa FACILITIES ADMINISTRATOR Work Phone: [facility] Work Phone: 11-25-2021 09:53-0400 Body mass index (BMI) [Ratio] 29 kg/m2 FACILITIES ADMINISTRATOR-C Sowmya Ciesa FACILITIES ADMINISTRATOR Work Phone: [facility] Work Phone: 11-25-2021 09:53-0400 Body weight 76.71 kg FACILITIES ADMINISTRATOR-C Sowmya Ciesa FACILITIES ADMINISTRATOR Work Phone: [facility] Work Phone: 11-25-2021 09:53-0400 Diastolic blood pressure 70 mm[Hg] FACILITIES ADMINISTRATOR-C Sowmya Ciesa FACILITIES ADMINISTRATOR Work Phone: [facility] Work Phone: 11-25-2021 09:53-0400 Systolic blood pressure 120 mm[Hg] FACILITIES ADMINISTRATOR-C Sowmya Ciesa FACILITIES ADMINISTRATOR Work Phone: [facility] Work Phone: 11-08-2021 10:24-0400 Body mass index (BMI) [Ratio] 28.5 kg/m2 FACILITIES ADMINISTRATOR-C Sowmya Ciesa FACILITIES ADMINISTRATOR Work Phone: [facility] Work Phone: 11-08-2021 10:24-0400 Body weight 75.4 kg FACILITIES ADMINISTRATOR-C Sowmya Ciesa FACILITIES ADMINISTRATOR Work Phone: [facility] Work Phone: 11-08-2021 10:24-0400 Diastolic blood pressure 60 mm[Hg] FACILITIES ADMINISTRATOR-C Sowmya Ciesa FACILITIES ADMINISTRATOR Work Phone: [facility] Work Phone: 11-08-2021 10:24-0400 Systolic blood pressure 100 mm[Hg] FACILITIES ADMINISTRATOR-C Sowmya Ciesa FACILITIES ADMINISTRATOR Work Phone: [facility] Work Phone: 10-26-2021 08:31-0400 Body mass index (BMI) [Ratio] 28.2 kg/m2 FACILITIES ADMINISTRATOR-C Sowmya Carmenesa FACILITIES ADMINISTRATOR Work Phone: [facility] Work Phone: 10-26-2021 08:31-0400 Body weight 74.55 kg FACILITIES ADMINISTRATOR-C Sowmya Moralesesa FACILITIES ADMINISTRATOR Work Phone: [facility] Work Phone: 10-26-2021 08:31-0400 Diastolic blood pressure 70 mm[Hg] FACILITIES ADMINISTRATOR-C Sowmya Moralesesa FACILITIES ADMINISTRATOR Work Phone: [facility] Work Phone: 10-26-2021 08:31-0400 Systolic blood pressure 110 mm[Hg] FACILITIES ADMINISTRATOR-C Sowmya Moralesesa FACILITIES ADMINISTRATOR Work Phone: [facility] Work Phone: 10-26-2021 08:31-0400 Body height 162.56 cm FACILITIES ADMINISTRATOR-C Sowmya Moralesesa FACILITIES ADMINISTRATOR Work Phone: [facility] Work Phone: 10-26-2021 08:31-0400 Body mass index (BMI) [Ratio] 28.2 kg/m2 FACILITIES ADMINISTRATOR-C Sowmya Moralesesa FACILITIES ADMINISTRATOR Work Phone: [facility] Work Phone: 10-26-2021 08:31-0400 Body weight 74.55 kg FACILITIES ADMINISTRATOR-C Sowmya Moralesesa FACILITIES ADMINISTRATOR Work Phone: [facility] Work Phone: 10-26-2021 08:31-0400 Diastolic blood pressure 70 mm[Hg] FACILITIES ADMINISTRATOR-C Sowmya Ciesa FACILITIES ADMINISTRATOR Work Phone: [facility] Work Phone: 10-26-2021 08:31-0400 Systolic blood pressure 110 mm[Hg] FACILITIES ADMINISTRATOR-C Sowmya Rodrigueza FACILITIES ADMINISTRATOR Work Phone: [facility] Work Phone: 09-23-2021 09:45-0400 Body mass index (BMI) [Ratio] 26.6 kg/m2 FACILITIES ADMINISTRATOR-C Sowmya Rodrigueza FACILITIES ADMINISTRATOR Work Phone: [facility] Work Phone: 09-23-2021 09:45-0400 Body weight 70.36 kg FACILITIES ADMINISTRATOR-C Sowmya Rodrigueza FACILITIES ADMINISTRATOR Work Phone: [facility] Work Phone: 09-23-2021 09:45-0400 Diastolic blood pressure 70 mm[Hg] FACILITIES ADMINISTRATOR-C Sowmya Moralesesa FACILITIES ADMINISTRATOR Work Phone: [facility] Work Phone: 09-23-2021 09:45-0400 Systolic blood pressure 130 mm[Hg] FACILITIES ADMINISTRATOR-C Sowmya Rodrigueza FACILITIES ADMINISTRATOR Work Phone: [facility] Work Phone: 08-23-2021 08:52-0400 Body mass index (BMI) [Ratio] 25.6 kg/m2 FACILITIES ADMINISTRATOR-C Sowmya Rodrigueza FACILITIES ADMINISTRATOR Work Phone: [facility] Work Phone: 08-23-2021 08:52-0400 Body weight 67.75 kg FACILITIES ADMINISTRATOR-C Sowmya Rodrigueza FACILITIES ADMINISTRATOR Work Phone: [facility] Work Phone: 08-23-2021 08:52-0400 Diastolic blood pressure 80 mm[Hg] FACILITIES ADMINISTRATOR-C Sowmya Moralesesa FACILITIES ADMINISTRATOR Work Phone: [facility] Work Phone: 08-23-2021 08:52-0400 Systolic blood pressure 110 mm[Hg] FACILITIES ADMINISTRATOR-C Sowmya Rodrigueza FACILITIES ADMINISTRATOR Work Phone: [facility] Work Phone: 08-23-2021 08:52-0400 Body mass index (BMI) [Ratio] 25.6 kg/m2 FACILITIES ADMINISTRATOR-C Sowmya Ciesa FACILITIES ADMINISTRATOR Work Phone: [facility] Work Phone: 08-23-2021 08:52-0400 Body weight 67.75 kg FACILITIES ADMINISTRATOR-C Sowmya Ciesa FACILITIES ADMINISTRATOR Work Phone: [facility] Work Phone: 08-23-2021 08:52-0400 Diastolic blood pressure 80 mm[Hg] FACILITIES ADMINISTRATOR-C Sowmya Ciesa FACILITIES ADMINISTRATOR Work Phone: [facility] Work Phone: 08-23-2021 08:52-0400 Systolic blood pressure 110 mm[Hg] FACILITIES ADMINISTRATOR-C Sowmya Ciesa FACILITIES ADMINISTRATOR Work Phone: [facility] Work Phone: 07-26-2021 08:02-0500 Body mass index (BMI) [Ratio] 25 kg/m2 FACILITIES ADMINISTRATOR-C Sowmya Ciesa FACILITIES ADMINISTRATOR Work Phone: [facility] Work Phone: 07-26-2021 08:02-0500 Body weight 66.28 kg FACILITIES ADMINISTRATOR-C Sowmya Ciesa FACILITIES ADMINISTRATOR Work Phone: [facility] Work Phone: 07-26-2021 08:02-0500 Diastolic blood pressure 80 mm[Hg] FACILITIES ADMINISTRATOR-C Sowmya Ciesa FACILITIES ADMINISTRATOR Work Phone: [facility] Work Phone: 07-26-2021 08:02-0500 Systolic blood pressure 124 mm[Hg] FACILITIES ADMINISTRATOR-C Sowmya Ciesa FACILITIES ADMINISTRATOR Work Phone: [facility] Work Phone: 06-30-2021 09:17-0500 Body mass index (BMI) [Ratio] 25 kg/m2 FACILITIES ADMINISTRATOR-C Sowmya Ciesa FACILITIES ADMINISTRATOR Work Phone: [facility] Work Phone: 06-30-2021 09:17-0500 Body weight 66.28 kg FACILITIES ADMINISTRATOR-C Sowmya Baldwin FACILITIES ADMINISTRATOR Work Phone: [facility] Work Phone: 06-30-2021 09:17-0500 Diastolic blood pressure 90 mm[Hg] FACILITIES ADMINISTRATOR-C Sowmya Baldwin FACILITIES ADMINISTRATOR Work Phone: [facility] Work Phone: 06-30-2021 09:17-0500 Systolic blood pressure 140 mm[Hg] FACILITIES ADMINISTRATOR-C Sowmya Rodrigueza FACILITIES ADMINISTRATOR Work Phone: [facility] Work Phone: 08-09-2020 11:01-0500 BMI (Body Mass [...] 08:39-0500 Body Temperature 98.4 [degF] Ele Roselear [facility] Work Phone: Comment on above: Method: Temporal 06-10-2018 08:39-0500 Body weight 67.3 kg Ele Osorio [facility] Work Phone: 06-10-2018 08:39-0500 BP Diastolic 78 mm[Hg] Ele Jo [facility] Work Phone: Comment on above: Patient Position: Sitting; Cuff Location : Left Arm; Cuff Size: Standard 06-10-2018 08:39-0500 BP Systolic 132 mm[Hg] Ele Osorio [facility] Work Phone: Comment on above: Patient Position: Sitting; Cuff Location : Left Arm; Cuff Size: Standard 06-10-2018 08:39-0500 BSA (Body Surface Area) 1.76 m2 Ele Osorio [facility] Work Phone: 06-10-2018 08:39-0500 Height 167.64 cm Ele Osorio [facility] Work Phone: 06-10-2018 08:39-0500 Pulse (Heart Rate) 113 /min Ele Osorio [facility] Work Phone: Comment on above: Pattern: Regular 06-10-2018 08:39-0500 Pulse Oximetry 98 % Sowmya Denny [facility] Work Phone: Comment on above: Room air 06-10-2018 08:39-0500 Respiratory Rate 16 /min Ele Osorio [facility] Work Phone: Comment on above: Pattern: Unlabored 06-10-2018 08:39-0500 SaO2% (BldA) [Mass fraction] 98 % Ele Osorio [facility]; [facility] Work Phone: Comment on above: Room air 05-23-2017 11:38-0500 BMI (Body Mass Index) 20.01 kg/m2 Katelyn Aburto [facility] Work Phone: 05-23-2017 11:38-0500 Body weight 56.25 kg [facility] Work Phone: 05-23-2017 11:38-0500 BP Diastolic 70 mm[Hg] Katelyn Aburto [facility] Work Phone: Comment on above: Patient Position: Sitting; Cuff Location : Left Arm; Cuff Size: Standard 05-23-2017 11:38-0500 BP Systolic 115 mm[Hg] [facility] Work Phone: Comment on above: Patient Position: Sitting; Cuff Location : Left Arm; Cuff Size: Standard 05-23-2017 11:38-0500 BSA (Body Surface Area) 1.63 m2 [facility] Work Phone: 05-23-2017 11:38-0500 Height 167.64 cm [facility] Work Phone: 05-23-2017 11:38-0500 Pulse (Heart Rate) 82 /min Katelyn Aburto [facility] Work Phone: Comment on above: Pattern: Regular 05-23-2017 11:38-0500 Pulse Oximetry 98 % Sowmya Baldwin [facility] Work Phone: Comment on above: Room air 05-23-2017 11:38-0500 Respiratory Rate 16 /min Katelyn Aburto [facility] Work Phone: Comment on above: Pattern: Unlabored 05-23-2017 11:38-0500 SaO2% (BldA) [Mass fraction] 98 % Katelyn Aburto [facility]; [facility] Work Phone: Comment on above: Room air 08-25-2016 10:24-0400 BMI (Body Mass Index) 20.01 kg/m2 Lilian Slarb CHIEF TECHNOLOGIST [facility] Work Phone: 08-25-2016 10:24-0400 Body Temperature 98.3 [degF] Lilian Slarb CHIEF TECHNOLOGIST [facility] Work Phone: 08-25-2016 10:24-0400 Body weight 56.25 kg Lilian Slarb CHIEF TECHNOLOGIST [facility] Work Phone: 08-25-2016 10:24-0400 BP Diastolic 78 mm[Hg] Lilian Slarb CHIEF TECHNOLOGIST [facility] Work Phone: Comment on above: Patient Position: Sitting; Cuff Location : Left Arm; Cuff Size: Standard 08-25-2016 10:24-0400 BP Systolic 118 mm[Hg] Lilian Slarb CHIEF TECHNOLOGIST [facility] Work Phone: Comment on above: Patient Position: Sitting; Cuff Location : Left Arm; Cuff Size: Standard 08-25-2016 10:24-0400 BSA (Body Surface Area) 1.63 m2 Lilian Slarb CHIEF TECHNOLOGIST [facility] Work Phone: 08-25-2016 10:24-0400 Height 167.64 cm Lilian Slarb CHIEF TECHNOLOGIST [facility] Work Phone: 08-25-2016 10:24-0400 [...] Type Care Provider Facility Start: 04-20-2025 ambulatory [facility] [place] Start: 04-20-2025 End: 04-20-2025 ambulatory [facility] Facility:[facility] Start: 04-14-2025 End: 04-14-2025 ambulatory [place] Start: 04-06-2025 [facility] Start: 04-06-2025 End: 04-06-2025 ambulatory [facility] Start: 03-23-2025 End: 03-23-2025 Patient encounter procedure Suzanne Salazar FACILITIES ADMINISTRATOR-C -[facility] Work Phone: Start: 03-23-2025 End: 03-23-2025 ambulatory Kiya Greer FACILITIES ADMINISTRATOR-C Work Phone: -[facility] Start: 03-09-2025 End: 03-09-2025 ambulatory Kiya Greer FACILITIES ADMINISTRATOR-C Work Phone: -[facility] Start: 03-09-2025 End: 03-09-[address] Rose Mahmood DO -[facility] Work Phone: Start: 02-25-2025 End: 02-25-[address] Dorothy Lee MD -[facility] Work Phone: Start: 02-25-2025 End: 02-25-2025 ambulatory Kiya Greer FACILITIES ADMINISTRATOR-C Work Phone: [facility] Start: 02-11-2025 End: 02-11-[address] Rose Mahmood DO -[facility] Work Phone: Start: 02-11-2025 End: 02-11-2025 ambulatory Kiya Greer FACILITIES ADMINISTRATOR-C Work Phone: [facility] Start: 01-26-2025 End: 01-26-[address] Dorothy Lee MD -[facility] Work Phone: Start: 01-26-2025 End: 01-26-2025 ambulatory Kiya Greer FACILITIES ADMINISTRATOR-C Work Phone: [facility] Start: 01-26-2025 End: 01-26-2025 ambulatory Kiya Greer Facility:[facility] Start: 12-31-2024 End: 12-31-[address] Rose Mahmood DO -[facility] Work Phone: Start: 12-31-2024 End: 12-31-2024 ambulatory Kiya Greer FACILITIES ADMINISTRATOR-C Work Phone: [facility] Start: 12-15-2024 End: 12-15-2024 ambulatory NO PRIMARY CARE [facility] Start: 12-01-2024 End: 12-01-2024 ambulatory NO PRIMARY CARE [facility] Start: 12-01-2024 End: 12-01-[address] Dorothy Lee MD -[facility] Work Phone: Start: 12-01-2024 End: 12-01-2024 ambulatory Kiya Greer FACILITIES ADMINISTRATOR-C Work Phone: [facility] Work Phone: Start: 11-05-2024 End: 11-05-[address] Rose Mahmood DO -[facility] Work Phone: Start: 11-05-2024 End: 11-05-2024 ambulatory Kiya Percy FACILITIES ADMINISTRATOR-C Work Phone: [facility] Work Phone: Start: 11-05-2024 End: 11-05-2024 ambulatory Kiya Greer Facility:[facility] Start: 09-29-2024 End: 09-29-2024 ambulatory Kiya Greer FACILITIES ADMINISTRATOR-C Work Phone: [facility] Work Phone: Start: 09-29-2024 End: 09-29-[address] Dorothy Lee MD -Laboratory, Specimen Work Phone: Start: 09-29-2024 End: 09-29-[address] Dorothy Lee MD -[facility] Work Phone: Start: 09-29-2024 End: 09-29-2024 ambulatory Kiya Greer [facility] Start: 09-29-2024 End: 09-29-2024 ambulatory Dorothy Lee Facility:[facility] Start: 04-28-2024 End: 04-28-2024 ambulatory Kiya Greer Facility:[facility] Start: 04-28-2024 End: 04-28-2024 ambulatory Suzanne Salazar FACILITIES ADMINISTRATOR Facility:[facility] Start: 09-19-2022 ambulatory Kiya Greer FINE JEWELRY SALES ASSOCIATE [facility] Start: 09-19-2022 End: 10-09-2022 Periodic preventive med est patient 18-39 yrs Kiya Greer FINE JEWELRY SALES ASSOCIATE Work Phone: [facility] Start: 09-19-2022 Review Kiya Greer FINE JEWELRY SALES ASSOCIATE Work Phone: [facility] Start: 02-06-2022 Non-patient / Non-visit FACILITIES ADMINISTRATOR-C Sowmya Baldwin FACILITIES ADMINISTRATOR Work Phone: [facility] Start: 02-05-2022 Non-patient / Non-visit FACILITIES ADMINISTRATOR-C Sowmya Rodrigueza FACILITIES ADMINISTRATOR Work Phone: [facility] Start: 02-04-2022 Non-patient / Non-visit FACILITIES ADMINISTRATOR-C Sowmya Rodrigueza FACILITIES ADMINISTRATOR Work Phone: [facility] Start: 02-04-2022 End: 02-06-2022 Evaluation and management of inpatient FACILITIES ADMINISTRATOR-C Sowmya Rodrigueza FACILITIES ADMINISTRATOR [facility] Start: 02-03-2022 End: 02-03-2022 Patient encounter procedure FACILITIES ADMINISTRATOR-C Sowmya Rodrigueza FACILITIES ADMINISTRATOR Work Phone: [facility] Start: 01-27-2022 End: 01-27-2022 Patient encounter procedure FACILITIES ADMINISTRATOR-C Sowmya Rodrigueza FACILITIES ADMINISTRATOR Work Phone: [facility] Start: 01-17-2022 End: 01-17-2022 Patient encounter procedure FACILITIES ADMINISTRATOR-C Sowmya Rodrigueza FACILITIES ADMINISTRATOR Work Phone: [facility] Start: 01-17-2022 End: 01-17-2022 Patient encounter procedure FACILITIES ADMINISTRATOR-C Sowmya Rodrigueza FACILITIES ADMINISTRATOR Work Phone: [facility] Start: 01-11-2022 End: 01-11-2022 Patient encounter procedure FACILITIES ADMINISTRATOR-C Sowmya Rodrigueza FACILITIES ADMINISTRATOR Work Phone: [facility] Start: 01-04-2022 Non-patient / Non-visit FACILITIES ADMINISTRATOR-C Sowmya Rodrigueza FACILITIES ADMINISTRATOR Work Phone: [facility] Start: 01-04-2022 End: 01-04-2022 Patient encounter procedure FACILITIES ADMINISTRATOR-C Sowmya Rodrigueza FACILITIES ADMINISTRATOR Work Phone: [facility] Start: 01-03-2022 End: 01-03-2022 Patient encounter procedure FACILITIES ADMINISTRATOR-C Sowmya Ciesa FACILITIES ADMINISTRATOR Work Phone: [facility]Labor[facility], Specimen Start: 01-02-2022 End: 01-02-2022 Patient encounter procedure FACILITIES ADMINISTRATOR-C Sowmya Rodrigueza FACILITIES ADMINISTRATOR Work Phone: [facility] Start: 12-27-2021 End: 12-27-2021 Patient encounter procedure FACILITIES ADMINISTRATOR-C Sowmya Rodrigueza FACILITIES ADMINISTRATOR Work Phone: [facility] Start: 12-20-2021 Non-patient / Non-visit FACILITIES ADMINISTRATOR-C Sowmya Rodrigueza FACILITIES ADMINISTRATOR Work Phone: [facility] Start: 12-20-2021 End: 12-20-2021 Patient encounter procedure FACILITIES ADMINISTRATOR-C Sowmya Rodrigueza FACILITIES ADMINISTRATOR Work Phone: [facility] Start: 12-14-2021 End: 12-14-2021 Patient encounter procedure FACILITIES ADMINISTRATOR-C Sowmya Rodriguezfranky FACILITIES ADMINISTRATOR Work Phone: [facility] Start: 12-14-2021 End: 12-14-2021 Emergency department patient visit FACILITIES ADMINISTRATOR-C Sowmya Rodrigueza FACILITIES ADMINISTRATOR Work Phone: [facility]Emer[facility] Start: 12-08-2021 End: 12-08-2021 Patient encounter procedure FACILITIES ADMINISTRATOR-C Sowmya Rodrigueza FACILITIES ADMINISTRATOR Work Phone: [facility] Start: 11-25-2021 End: 11-25-2021 Patient encounter procedure FACILITIES ADMINISTRATOR-C Sowmya Rodrigueza FACILITIES ADMINISTRATOR Work Phone: [facility] Start: 11-08-2021 End: 11-08-2021 Patient encounter procedure FACILITIES ADMINISTRATOR-C Sowmya Rodrigueza FACILITIES ADMINISTRATOR Work Phone: [facility] Start: 10-26-2021 End: 10-26-2021 Patient encounter procedure FACILITIES ADMINISTRATOR-C Sowmya Rodrigueza FACILITIES ADMINISTRATOR Work Phone: [facility] Start: 09-23-2021 End: 09-23-2021 Patient encounter procedure FACILITIES ADMINISTRATOR-C Sowmya Baldwin FACILITIES ADMINISTRATOR Work Phone: [facility] Start: 08-23-2021 End: 08-23-2021 Patient encounter procedure FACILITIES ADMINISTRATOR-C Sowmya Baldwin FACILITIES ADMINISTRATOR Work Phone: [facility] Start: 07-26-2021 End: 07-26-2021 Patient encounter procedure FACILITIES ADMINISTRATOR-C Sowmya Baldwin FACILITIES ADMINISTRATOR Work Phone: [facility] Start: 06-30-2021 End: 06-30-2021 Patient encounter procedure FACILITIES ADMINISTRATOR-C Sowmya Baldwin FACILITIES ADMINISTRATOR Work Phone: [facility] Start: 06-30-2021 End: 06-30-2021 Patient encounter procedure FACILITIES ADMINISTRATOR-C Sowmya Baldwin FACILITIES ADMINISTRATOR Work Phone: [facility] Start: 08-09-2020 End: 08-09-2020 Patient encounter procedure Rosalino Ramírez LPN [facility]; [facility] Work Phone: Start: 08-09-2020 End: 08-09-2020 Periodic preventive med est patient 18-39 yrs Sowmya Baldwin [facility] Start: 06-16-2019 End: 06-16-2019 Patient encounter procedure Kiya Greer FINE JEWELRY SALES ASSOCIATE Work Phone: [facility] Start: 06-16-2019 End: 06-16-2019 Periodic preventive med est patient 18-39 yrs Sowmya Baldwin [facility] Start: 06-10-2018 End: 06-10-2018 Patient encounter procedure Kiya Greer FINE JEWELRY SALES ASSOCIATE Work Phone: [facility] Start: 06-10-2018 End: 06-10-2018 Periodic preventive med est patient 18-39 yrs Sowmya Denny [facility] Start: 05-23-2017 End: 05-23-2017 Office outpatient visit 15 minutes Sowmya Baldwin [facility] Start: 09-11-2016 End: 09-11-2016 Annotation/Addendum Sowmya Baldwin [facility] Start: 08-25-2016 End: 08-25-2016 Office outpatient new 30 minutes Sowmya Baldwin [facility] Start: 08-25-2016 End: 08-25-2016 Patient encounter procedure Kiya Greer FINE JEWELRY SALES ASSOCIATE Work Phone: [facility] End: 09-19-2022 Patient encounter procedure Lilian Pineda CHIEF TECHNOLOGIST [facility]; [facility] Work Phone: Procedures Date Procedure Procedure Detail Performing Clinician Start: 01-26-2025 Serologic test for syphilis Kiya Greer FACILITIES ADMINISTRATOR-C Work Phone: Start: 11-05-2024 Hepatitis C antibody measurement Kiya Greer FACILITIES ADMINISTRATOR-C Work Phone: Comment on above: Reactive: Presumptive evidence of antibo dies to HCV. Follow CDC recommendations for supplemental testing.Non-Reactive: Antibodies to HCV were not detected; does not exclude the possibility of exposure to HCVReactive Results are presumptive evidence of antibodies to HCV. Follow CDC recommendations for supplemental testing.Order confirmation testing: HCV Quant by PCR testing - HCVPCR [id number] Non Reactive: < 0.8 Equivocal: >/= 0.8 to < 1.0 Reactive: >/= 1.0The CDC requires that a reactive/equivocal HCV antibody result be sent out for confirmation. HCV Quant by PCR testing. Start: 11-05-2024 Rubella IgG measurement Kiya Greer FACILITIES ADMINISTRATOR-C Work Phone: Comment on above: Antibody Result: InterpretationNon-React marie: Non-ImmuneReactive: ImmuneThe following results were obtained with the [employer] Rubella IgG assay. Results from assays of other manufacturers cannot be used interchangeably. Start: 11-05-2024 Serologic test for syphilis Kiya Greer FACILITIES ADMINISTRATOR-C Work Phone: Start: 09-29-2024 Urine culture Kiya Greer FACILITIES ADMINISTRATOR-C Work Phone: Start: 03-20-2022 End: 03-20-2022 Shaping Machine Operator Office Visit Report Procedure Note: See Note; NOTES: [facility] [address] [place] [address] OFFICE VISIT Date of Service: 03/20/22 MR#: [id number] Acct: [id number] Name: MARTIN CASTELLANOS Rep #: [id number] : 1995 Provider: Dr. 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 animals: Yes Smoking [...] 41 live - full term Female epidural [facility] Pelon audra Mobley Delivery Date: [...] symptoms Infant Feeding: Breast Menses resumed: No [place] since delivery: No Emotional Support: Yes ROS [...] Signature: Date (if applicable) CC: Kiya Greer [facility] Work Phone: Start: 02-10-2022 End: 02-10-2022 /[facility] Procedure Note: See Note; NOTES: [facility] [address] [place] [address] OFFICE VISIT Date of Service: 02/09/22 MR#: [id number] Acct: [id number] Name: MARTIN CASTELLANOS LUZ Rep #: [id number] : 1995 Provider: MARIANELA vega Age/Sex: 26/F [place] [facility] Status: Signed Intake Vital Signs 02/04/22 07:12 Height 5 ft 4 in Intake Visit Reasons: Feeding Assessment/Nipple Soreness Chief Complaint: assessment, nipple pain Accompanied by: Allergies Penicillins Allergy (Intermediate, Verified 02/04/22 08:35) Hives : Yes Current gender identity: female [facility] Medical History COVID-19 vaccine series completed Surgical History H/O wisdom tooth extraction Family History Mother Hypertension Grandmother Breast cancer Grandmother Hypertension Social History household members: spouse housing: house 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 [place] [address] OFFICE VISIT Date of Service: 02/03/22 MR#: [id number] Acct: [id number] Name: MARTIN CASTELLANOS Rep #: [id number] : 1995 Provider: Dr. 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 [place] [address] OFFICE VISIT Date of Service: 01/27/22 MR#: [id number] Acct: [id number] Name: MARTIN CASTELLANOS Rep #: [id number] : 1995 Provider: Dr. 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: Yes Smoking [...] Signature: Date (if applicable) CC: Kiya Greer [employer] Work Phone: Start: 01-17-2022 Ultrasound scan for growth FACILITIES ADMINISTRATOR-C Sowmya Rodriguezfranky MARIANELA Work Phone: Start: 01-17-2022 End: 01-18-2022 OB Limited With Biometrics Procedure Note: See Note; NOTES: [facility] Imaging Services [address] [place] [address] OB Limited With Biometrics MR#: [id number] Acct: [id number] Name: MARTIN CASTELLANOS Rep #: [id number] : 1995 F 26 From: Levi Portillo MD PCP: LUCINDA Wesley Status: REG CLI Study: OB Limited With Biometrics Date of Exam: 01/17 Exam# [id number] Ordering Dr: Dorothy Lee STUDY: SECOND AND [...] CC: LUCINDA Greer; Dr. Dorothy Lee MD Dynamometer Tester Engine: Signed Kiya Greer [facility] Work Phone: Start: 01-17-2022 End: 01-17-2022 Shaping Machine Operator Office Visit Report Comments: See Note; NOTES: [facility] [address] [place] [address] OFFICE VISIT Date of Service: 01/17/22 MR#: [id number] Acct: [id number] Name: MARTIN CASTELLANOS Rep #: [id number] : 1995 Provider: Dr. 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 [place] [address] OFFICE VISIT Date of Service: 01/11/22 MR#: [id number] Acct: [id number] Name: MARTIN CASTELLANOS Rep #: [id number] : 1995 Provider: Dr. 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 AJNEL 01/28/22 07/26/21 -???-???-???-???-???-???-?? ?-???-???-???-???-???- 13w 3d 146 [...] 01-04-2022 Echo Complete Comments: See Note; NOTES: [facility] [address] [place] [address] Echo Complete 01/04/22 1102 MR#: [id number] Acct: [id number] Name: MARTIN CASTELLANOS Rep #: [id number] : 1995 26 From: Kirk Lemon MD Attending Dr: Dr. Kirk Lemon MD Status: FAVIO RODRIGUEZ Ordering Dr: Kirk Lemon MD Date: 01/04/22 Location: [facility] Sex: F C Admitted: Reason For [...] 01/04/22 1619 Date Kirk Lemon MD CC: FACILITIES ADMINISTRATOR-C Kiya Greer; Dr. Kirk Lemon MD Date Dictated: 01/04/22 1102 Date Transcribed: 01/04/221618 Dynamometer Tester Engine: Signed Kiya Greer CNP Work Phone: Start: 01-02-2022 End: 01-02-2022 Shaping Machine Operator Office Visit Report Comments: See Note; NOTES: [facility] [address] [place] [address] OFFICE VISIT Date of Service: 01/02/22 MR#: [id number] Acct: [id number] Name: MARTIN CASTELLANOS Rep #: [id number] : 1995 Provider: Dr. 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 [place] [address] OFFICE VISIT Date of Service: 12/27/21 MR#: [id number] Acct: [id number] Name: MARTIN CASTELLANOS Rep #: [id number] : 1995 Provider: Dr. 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: Yes Smoking [...] system Z82.79 tachycardia CPT Codes Non-Stress Test (43274) Assessment and Plan Assessment and Plan (1) [...] Signature: Date (if applicable) CC: Kiya Greer [employer] Work Phone: Start: 12-14-2021 End: 12-17-2021 12 Lead EKG Comments: See Note; NOTES: [facility] Cardiovascular Services [address] [place] [address] 12 Lead EKG 12/14/21 1106 MR#: [id number] Acct: [id number] Name: MARTIN CASTELLANOS Rep #: [id number] : 1995 From: Kristopher Castillo MD Attending [...] normal ECG Confirmed by FIOR URBINA, KRISTOPHER ([id number]), associate editor ANGELA HSU ([id number]) on 12/17/2021 9:42:28 AM Referred By: John Confirmed By:KRISTOPHER CASTILLO MD 12/17/21 0942 Date Kristopher Castillo MD CC: KARINAC Sowmya Baldwin; Dr. Kristopher Lopez MD Signed Kiya Greer CNP Work Phone: Start: 12-14-2021 End: 12-14-2021 Emergency Department Summary Comments: See Note; NOTES: [facility] Medical Records Department [address] [place] [address] Emergency Department Summary 12/14/21 MR#: [id number] Acct: [id number] Name: MARTIN CASTELLANOS Rep #: [id number] : 1995 From: Kristopher Lopez MD PCP: [...] and otherwise she has no other symptoms. 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 I talked to PAPER TUBE MACHINE OPERATOR, Dr. Palomo Sloan as well as Dr. [...] 75.7 H Lymph % (Auto) 15.3 L [place] % (Auto) 6.1 Eos % (Auto) 0.5 [...] Clarity Clear Urine pH 6.5 Ur Specific [place] 1.010 Urine Protein Negative Urine Glucose (UA) [...] PHYSICIAN] - 3-5 Days Sowmya Baldwin NP, FACILITIES ADMINISTRATOR-C [Primary Care Provider] - Disposition Disposition: Home, Self Care What to do if you have Problems For any increased pain, shortness of breath, bleeding, nausea or vomiting, chest pain, or any unexpected problems, contact your Primary Care Provider. Call [facility] ([phone]) or report to the closest Emergency Room. Call 911 if necessary. 12/14/21 1256 <Electronically signed by Kristopher Lopez MD> Cosigner Signature (if applicable): CC: FACILITIES ADMINISTRATORJuanita Baldwin Signed Sowmya Baldwin Work Phone: Start: 12-08-2021 End: 12-08-2021 Shaping Machine Operator Office Visit Report Comments: See Note; NOTES: [facility] [address] [place] [address] OFFICE VISIT Date of Service: 12/08/21 MR#: [id number] Acct: [id number] Name: MARTIN CASTELLANOS Rep #: [id number] : 1995 Provider: Dr. 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 [place] [address] OFFICE VISIT Date of Service: 11/25/21 MR#: [id number] Acct: [id number] Name: MARTIN CASTELLANOS Rep #: [id number] : 1995 Provider: Dr. 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 [address] [place] [address] OFFICE VISIT Date of Service: 11/08/21 MR#: [id number] Acct: [id number] Name: MARTIN CASTELLANOS Rep #: [id number] : 1995 Provider: Dr. 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 [place] [address] OFFICE VISIT Date of Service: 09/23/21 MR#: [id number] Acct: [id number] Name: MARTIN CASTELLANOS Rep #: [id number] : 1995 Provider: Dr. 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 [place] [address] OFFICE VISIT Date of Service: 08/23/21 MR#: [id number] Acct: [id number] Name: MARTIN CASTELLANOS Rep #: [id number] : 1995 Provider: Dr. 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 [place] [address] OFFICE VISIT Date of Service: 07/26/21 MR#: [id number] Acct: [id number] Name: MARTIN CASTELLANOS Rep #: [id number] : 1995 Provider: Dr. 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 [place] [address] OFFICE VISIT Date of Service: 06/30/21 MR#: [id number] Acct: [id number] Name: MARTIN CASTELLANOS Rep #: [id number] : 1995 Provider: Dr. 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 [facility] book offered to patient. Discussed routine and [...] Work Phone: Group B Streptococcu s Culture FACILITIES ADMINISTRATOR-C Sowmya Baldwin FACILITIES ADMINISTRATOR Work Phone: Viral antigen assay FACILITIES ADMINISTRATOR-C Prema Baldwin FACILITIES ADMINISTRATOR Work Phone: Plan of Treatment Date Care Activity Detail Author Start: 04-06-2025 Patient encounter procedure Registered Clinical -Laboratory Specimen Work Phone: Start: 04-06-2025 End: 04-06-2025 Patient encounter procedure [facility] Work Phone: Start: 04-06-2025 Group B Streptococcus Culture Group B Streptococcus Culture [facility] Start: 04-06-2025 Streptococcus agalactiae [Presence] in Unspecified specimen by Organism specific culture [facility] Start: 01-26-2025 CBC W Auto Differential panel - Blood [facility] Start: 01-26-2025 Measurement of glucose 2 hours after glucose challenge for glucose tolerance test [facility] Start: 01-26-2025 Serologic test for syphilis [facility] Start: 01-26-2025 [facility] Start: 11-05-2024 CBC W Auto Differential panel - Blood [facility] Start: 11-05-2024 Hepatitis C antibody measurement [facility] Start: 11-05-2024 Rubella IgG measurement [facility] Start: 11-05-2024 Serologic test for syphilis [facility] Start: 11-05-2024 [facility] Start: 09-19-2022 Procedure Education Eprescribed prescriptions (G8553) [facility] Work Phone: Start: 09-19-2022 Provider Instructions for Treatment Follow up as needed [facility] Work Phone: Start: 02-06-2022 Patient discharge [facility] Work Phone: Start: 02-05-2022 Administration of medication [facility] Work Phone: Start: 02-05-2022 Application of ice collar, cap or bag [facility] Work Phone: Start: 02-05-2022 Catheterization of vein [facility] Work Phone: Start: 02-05-2022 Introduction of urinary catheter [facility] Work Phone: Start: 02-05-2022 Measuring intake and output [facility] Work Phone: Start: 02-05-2022 Notification of physician [facility] Work Phone: Start: 02-05-2022 Procedure discontinued [facility] Work Phone: Start: 02-05-2022 Provision of activity privileges [facility] Work Phone: Start: 02-05-2022 Vital signs measurements [facility] Work Phone: Start: 02-05-2022 [facility] Work Phone: Start: 02-04-2022 Admission procedure [facility] Work Phone: Start: 12-14-2021 Ambulatory ECG [facility] Work Phone: Start: 08-09-2020 Procedure Education Eprescribed prescriptions (G8553) [facility] Work Phone: Start: 08-09-2020 Provider Instructions for Treatment [facility] Work Phone: Start: 08-09-2020 Hpv, dna, amp probe HPV Auto Reflex PAP (98995) [facility] Work [...] streptococcus group a Rapid Strep Test, Office (55834) [facility] Work Phone: Start: 05-23-2017 S. pyogenes Ag IA Ql (Unsp spec) Rapid Strep Test, Office (51016) [facility] Work Phone: Start: 08-25-2016 Provider Instructions for Treatment [facility] Work Phone: Start: 08-25-2016 Cytp c/v auto thin lyr prepj scr mnl rescr phys Pap - GC Chlamydia (14024) [facility] Work Phone: Beta-hemolytic Streptococcus culture [facility] CBC W Auto Different ial panel - Blood [facility] Erythrocyte mean corpuscular volume determination [facility] Erythrocyte mean corpuscular volume determination [facility] Hematocrit [Volume Fraction] of Blood [facility] Hematocrit [Volume Fraction] of Blood [facility] Hemoglobin [Mass/vol ume] in Blood [facility] Hemoglobin [Mass/vol ume] in Blood [facility] Hepatitis B virus mcclelland rface Ag [Presence] in Serum [facility] Hepatitis C antibody measurement [facility] Leukocytes [#/volume ] in Blood [facility] Leukocytes [#/volume ] in Blood [facility] Mean corpuscular hemoglobin concentration determination [facility] Mean corpuscular hemoglobin concentration determination [facility] Mean corpuscular hemoglobin determination [facility] Mean corpuscular hemoglobin determination [facility] Neutrophil count [facility] Neutrophil count [facility] Neutrophil percent differential count [facility] Neutrophil percent differential count [facility] Patient Education [facility] Work Phone: Patient referral [facility] Work Phone: Platelets [#/volume] in Blood [facility] Platelets [#/volume] in Blood [facility] Red blood cell count [facility] Red blood cell count [facility] Red cell distributio n width determination [facility] Red cell distributio n width determination [facility] Rubella IgG measurement [facility] Serologic test for syphilis [facility] Work Phone: [facility] Work Phone: [facility] Immunizations Immunization Date Immunization Notes Care Provider Junior storm 02-11-2025 tetanus toxoid, redu miller diphtheria toxoid, and acellular pertussis vaccine, adsorbed Kiya Greer FACILITIES ADMINISTRATOR-C Work Phone: [facility] 10-26-2021 tetanus toxoid, redu miller diphtheria toxoid, and acellular pertussis vaccine, adsorbed FACILITIES ADMINISTRATOR-C Sowmya Baldwin NP Work Phone: [facility] 10-26-2021 diphtheria, tetanus toxoids and acellular pertussis vaccine, unspecified formulation FACILITIES ADMINISTRATOR-C Sowmya Baldwin FACILITIES ADMINISTRATOR Work Phone: [facility] Work Phone: Payers Date Payer Category Payer Private Health Insurance [id number] 2024 Private Health Insurance [id number] 2024 Unknown [id number] 2024 Self-pay [id number] 2022 Unknown [id number] 2020 Unknown [id number] 1995 Unknown [id number] 2.16.84 0.1.819017.3.579.2.716 1995 Unknown [id number] 2.16. 840.1.074086.3.579.2.479 1995 Unknown [id number] 2.16. 840.1.531821.3.579.2.479 Unknown Unknown [id number] 2.16.8 40.1.338401.3.579.2.462 Unknown [id number] 2.16.8 40.1.997566.3.579.2.462 Unknown [id number] 2.16.8 40.1.523337.3.579.2.462 Unknown [id number] 2.16.8 40.1.832217.3.579.2.462 Unknown [id number] 2.16.8 40.1.689714.3.579.2.462 Unknown [id number] 2.16.8 40.1.464057.3.579.2.462 Unknown [id number] 2.16.8 40.1.741120.3.579.2.462 Unknown [id number] 2.16.8 40.1.294846.3.579.2.462 Unknown [id number] 2.16.8 40.1.616094.3.579.2.462 Unknown [id number] 2.16.8 40.1.549182.3.579.2.462 Unknown [id number] 2.16.8 40.1.418911.3.579.2.462 Unknown [id number] 2.16.8 40.1.677172.3.579.2.462 Unknown [id number] 2.16.8 40.1.517777.3.579.2.462 Unknown [id number] 2.16.8 40.1.496879.3.579.2.462 Unknown [id number] 2.16.8 40.1.827097.3.579.2.462 Unknown [id number] 2.16.8 40.1.106577.3.579.2.462 Unknown [id number] 2.16.8 40.1.520305.3.579.2.462 Unknown [id number] 2.16.8 40.1.369915.3.579.2.462 Unknown [id number] 2.16.8 40.1.051583.3.579.2.462 Unknown [id number] 2.16.8 40.1.681988.3.579.2.462 Social History Date Type Detail Facility Caffeine use Caffeine use [facility] Work Phone: Comment on above: 3 cups coffee daily Living Situation: Living Situation: [facility] Work Phone: Living Situation: Living Situation: [facility]; [facility] Work Phone: Start: 10-26-2021 End: 02-04-2022 Tobacco smoking status NHIS Unknown if ever smoked [facility] Work Phone: Start: 1995 Sex Assigned At Female [facility] Living Situation: Living Situation: [facility]pr [facility]; [facility] Work Phone: Comment on above: one child Start: 09-19-2024 Tobacco smoking status NHIS Never smoked tobacco (finding) [facility] Start: 10-01-2024 Sex Female (finding) [facility] Sex Female [facility] Goals Date Patient Goal Desired Activity /State Mental Status Date Assessment Result Facility 12-14-2021 Cognitive function Level Of Cons ciousness Awake;Alert;Appropriate;Follow s Commands;Responds to vocal stimuli [facility] Work Phone: Clinical Notes 09-29-2024 to 03-23-2025 Note Date & Type Note Facility 03-23-2025 Progress note [facility] 03-09-2025 Progress note [facility] 02-25-2025 Progress note [facility] 02-11-2025 Progress note [facility] 01-26-2025 Progress note [facility] 12-31-2024 Evaluation note Diagnosis Onset Date Resolution [...] Supervision of normal acute April 06 2:13pm [facility] Work Phone: 1(659) 399-126206-23-2025 Evaluation note* Diagnosis Onset Date Resolution Status [...] of normal acute March 09, 2025 9:23am [facility] Work Phone: 1(371) 936-806506-23-2025 Progress [facility] [address] [place] [address], [address] [place] [address] OFFICE VISIT Date of Service: 12/01/24 MR#: [id number] Acct: [id number] Name: MARTIN CASTELLANOS Rep #: [id number] : 1995 Provider: Dr. 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[employer] pets and animals: Yes pets [...] times per week duration: 30-45 minutes/day juan alberto/evangelical: Rastafarian seatbelt use: always do you feel safe [...] - full term 8#3oz Female epidu ral [facility] Dorothy Mobley Delivery Date: 02/05/22 [...] Cosigner Signature: Date (if applicable) CC: ~ [facility]05-28-2025 Evaluation note* Diagnosis Onset Date Resolution Status [...] normal acut e January 26, 2025 9:03am [facility] Work Phone: 1(374) 518-689705-28-2025 Evaluation note* Diagnosis Onset Date Resolution Status [...] Supervision of normal acute February 11 9:38am [facility] Work Phone: 1(955) 939-207105-28-2025 Evaluation note* Diagnosis Onset Date Resolution Status [...] of normal acute February 25, 2025 9:15am [facility] Work Phone: 1(385) 265-280505-28-2025 Progress [facility] [address] [place] [address], [address] [place] [address] OFFICE VISIT Date of Service: 11/05/24 MR#: [id number] Acct: [id number] Name: MARTIN CASTELLANOS Rep #: [id number] : 1995 Provider: Dr. 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[employer] pets and animals: Yes pets [...] times per week duration: 30-45 minutes/day juan alberto/evangelical: Rastafarian seatbelt use: always do you feel safe [...] - full term 8#3oz Female epidu ral [facility] Dorothy Mobley Delivery Date: 02/05/22 [...] Kohli Signature: Date (if applicable) CC: ~ [facility]04-21-2025 Evaluation note* Diagnosis Onset Date Resolution Status Admit Date Anxiety acute September 29 10:06am Depression acute September 29 10:06am History of atony of uterus acute September 29, 2024 10:06am acute September 29 10:06am Supervision of normal acut e September 29, 2024 10:06am [facility] Work Phone: 1(953) 898-700504-21-2025 Evaluation note* Diagnosis Onset Date Resolution Status [...] normal acut e November 05, 2024 8:39am [facility] [employer] [facility] Work Phone: 1(475) 924-754504-21-2025 Evaluation note* Diagnosis Onset Date Resolution Status [...] normal acut e December 01, 2024 10:07am [facility] Work Phone: 1(225) 301-268504-21-2025 Evaluation note* Diagnosis Onset Date Resolution Status [...] normal acut e December 31, 2024 8:34am [facility] Work Phone: 1(998) 587-228004-21-2025 Evaluation note* Diagnosis Onset Date Resolution Status [...] normal acut e January 26, 2025 9:03am [facility] Work Phone: Evaluation note* Diagnosis Onset Date [...] Seasonal allergies acute Supervision of normal acute [facility] Work Phone: Evaluation note* Diagnosis Onset [...] Seasonal allergies acute Supervision of normal acute [facility] Work Phone: Evaluation note* Diagnosis Onset [...] of congenital anomaly of cardiovascular system resolved [facility] Work Phone: Evaluation note* Diagnosis Onset [...] Seasonal allergies resolved Supervision of normal resolved [facility] Work Phone: Instructions* Name Dates Details Patient Instructions Indication:Well woman exam (Renamed from Encounter for well woman exam) Start:09-Aug-2020 Instruction Type:Provider Instructions for Treatment How to Access Health Informa tion Online using Patient Portal and [employer] Apps Indication:Well woman exam (Renamed from Encounter [...] Informa tion Online using Patient Portal and [employer] Apps Indication:Well woman exam (Renamed from Encounter [...] Informa tion Online using Patient Portal and [employer] Indication:Well woman exam (Renamed from Encounter [...] Informa tion Online using Patient Portal and [employer] Indication:Well woman exam (Renamed from Encounter [...] Informa tion Online using Patient Portal and [employer] Indication:Well woman exam (Renamed from Encounter [...] Informa tion Online using Patient Portal and [employer] Indication:Well woman exam (Renamed from Encounter [...] Informa tion Online using Patient Portal and [employer] Indication:Nonsmoker Start:19-Sep-2022 Instruction Type:Patient Education Patient Instructions Indication:Well woman exam (Renamed from Encounter for well woman exam) Start:09-Aug-2020 Instruction Type:Provider Instructions for Treatment How to Access Health Informa tion Online using Patient Portal and [employer] Apps Indication:Well woman exam (Renamed from Encounter [...] Informa tion Online using Patient Portal and [employer] Indication:Nonsmoker Start:19-Sep-2022 Instruction Type:Patient Education Patient Instructions Indication:Well woman exam (Renamed from Encounter for well woman exam) Start:09-Aug-2020 Instruction Type:Provider Instructions for Treatment How to Access Health Informa tion Online using Patient Portal and [employer] Apps Indication:Well woman exam (Renamed from Encounter [...] Work Phone: progress note Author Rose Man [facility] Note Date/Time November 05, 2024 9:04a [facility] [address], [address] [place] [address] OFFICE VISIT Date of Service: 11/05/24 MR#: [id number] Acct: [id number] Name: MARTIN CASTELLANOS Rep #: [id number] : 1995 Provider: Dr. 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[employer] pets and animals: Yes pets [...] times per week duration: 30-45 minutes/day juan alberto/evangelical: Rastafarian seatbelt use: always do you feel safe [...] Cosigner Signature: Date (if applicable) CC: ~ [facility] Work Phone: Progress note Author Dorothy Lee [facility] Note Date/Time December 01, 2024 10:5 5am [facility] [address] [place] [address], [address] [place] [address] OFFICE VISIT Date of Service: 12/01/24 MR#: [id number] Acct: [id number] Name: MARTIN CASTELLANOS Rep #: [id number] : 1995 Provider: Dr. 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 Note Date/Time January 26, 2025 10 :02am [facility] [address], [address] [place] [address] OFFICE VISIT Date of Service: 01/26/25 MR#: [id number] Acct: [id number] Name: MARTIN CASTELLANOS Rep #: [id number] : 1995 Provider: Dr. 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[employer] pets and animals: Yes pets [...] times per week duration: 30-45 minutes/day juan alberto/evangelical: Rastafarian seatbelt use: always do you feel safe [...] - full term 8#3oz Female epidu ral [facility] Dorothy Mobley Delivery Date: 02/05/22 [...] Cosigner Signature: Date (if applicable) CC: ~ [facility] Work Phone: Progress note Author Rose Man [facility] Note Date/Time February 11, 2025 10:14am [facility] [address], [address] [place] [address] OFFICE VISIT Date of Service: 02/11/25 MR#: [id number] Acct: [id number] Name: MARTIN CASTELLANOS Rep #: [id number] : 1995 Provider: Dr. 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[employer] pets and animals: Yes pets [...] times per week duration: 30-45 minutes/day juan alberto/evangelical: Rastafarian seatbelt use: always do you feel safe [...] - full term 8#3oz Female epidu ral [facility] Dorothy Mobely Delivery Date: 02/05/22 Last Updated by: Ruthie Costello see problem list for complications, and 41 IOL postdates sm girl michael atony HPI 28 wk ob Details: MARTIN CASTELLNAOS is a 29 year old who presents [...] Performing Provider: Rose Mahmood DO Performing Location: [facility] Administered by: Angelina Blanco on 02/11/25 09:56 Dose Route Admin Location Dispensed Lot Number Expiration Date NDC Locomotive Crane Operator 0.5 mL IM Right Deltoid 0.5 mL [id number] 02/08/27 13310-115-42 JOSE [employer]PASTEUR VIS Given Date VIS Provided [...] Bhupinderignjoe Signature: Date (if applicable) CC: ~ [facility] Work Phone: Progress note Author Dorothy Lee [facility] Note Date/Time February 25, 2025 10:19am [facility] [address], [address] [place] [address] OFFICE VISIT Date of Service: 02/25/25 MR#: [id number] Acct: [id number] Name: MARTIN CASTELLANOS Rep #: [id number] : 1995 Provider: Dr. 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[employer] pets and animals: Yes pets [...] times per week duration: 30-45 minutes/day juan alberto/evangelical: Rastafarian seatbelt use: always do you feel safe [...] - full term 8#3oz Female epidu ral [facility] Dorothy Mobley Delivery Date: 02/05/22 [...] Cosigner Signature: Date (if applicable) CC: ~ [facility] Work Phone: Progress note Author Rose Man [facility] Note Date/Time March 09, 2025 10:07am [facility] [address], [address] [place] [address] OFFICE VISIT Date of Service: 03/09/25 MR#: [id number] Acct: [id number] Name: MARTIN CASTELLANOS Rep #: [id number] : 1995 Provider: Dr. 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 OB Visit AJNEL Calculator Estimated Delivery Date Method Current WG [...] Cosigner Signature: Date (if applicable) CC: ~ [facility] Work Phone: Progress note Author Suzanne Salazar [facility] Note Date/Time March 23, 2025 1 :54pm [facility] [address] [place] [address], [address] [place] [address] OFFICE VISIT Date of Service: 03/23/25 MR#: [id number] Acct: [id number] Name: MARTIN CASTELLANOS Rep #: [id number] : 1995 Provider: LUCINDA Salazar Age/Sex: 29/F [place] [facility] [place]: Signed Intake Vital Signs 02/11/25 09:41 03/09/25 09:27 03/23/25 13:40 Height 5 ft 4 in 5 ft 4 in 5 ft 4 in Weight: 207 lb 1 oz BMI 35.5 BP 112/81 H Intake Visit Reasons: 34wk ob Vehicle Care Specialist Required: No Is patient in pain?: No [...] 1 current occupational status: employed 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 03/23/25 [id number] <Electronically signed by Suzanne saldana FACILITIES ADMINISTRATOR FACILITIES ADMINISTRATOR-C> Date _ Suzanne Salazar FACILITIES ADMINISTRATOR FACILITIES ADMINISTRATOR-C Cosigner Signature: Date (if applicable) CC: ~ [facility] Work Phone: Reason for referral (narrative)No [facility] Work Phone: Family History No Family [...] tion Online using Patient Portal and [employer]rd [employer] Apps Indication:Well woman exam (Renamed from Encounter [...] Informa tion Online using Patient Portal and [employer] Apps Indication:Well woman exam (Renamed from Encounter [...] December 14, 2021 1 1:16am Power of Perlite Grinder No December 14, 2021 11:16am Advance Directive Response Recorded Date/ Time Living Will No February 04 7:47am Power of Perlite Grinder No February 04 022 7:47am Chief Complaint [...] February 11, 2025 9:38am Supervision of normal [facility] 2024 9:38am Anxiety February 25, 2025 [...] February 11, 2025 9:38am Supervision of normal [facility] 2024 9:38am Anxiety February 25, 2025 9:15am Depression February 25, 2025 9:15am Family history of transposition of great vessels February 25, 2025 9:15am History of atony of uterus Se ptember 2024 9:15am February 25, 2025 9:15am Supervision of normal [facility] 2024 9:15am Anxiety March 09, 2025 9:23am Depression March 09, 2025 9:23am Family history of transposition of great vessels March 09, 2025 9:23am History of atony of uterus Se ptember 2024 9:23am March 09, 2025 9:23am Supervision of normal [facility] 2024 9:23am Chief Complaint Admit Date [...] February 11, 2025 9:38am Supervision of normal [facility] r 2024 9:38am Anxiety February 25, 2025 [...] section and content) DATE CREATED AUTHOR 07/15/2021 [facility] DATE CREATED AUTHOR AUTHOR'S ORGANIZ ATION 09/19/2022 [facility] DATE CREATED AUTHOR AUTHOR'S ORGANIZ ATION 07/23/2024 [facility] DATE CREATED AUTHOR AUTHOR'S ORGANIZ ATION 12/18/2024 [facility] DATE CREATED AUTHOR AUTHOR'S ORGANIZ ATION 04/21/2025 [facility] Goals (unrecognized section and content) Type Care [...] Member Role Status Dates Kiya Percy , FACILITIES ADMINISTRATOR-C Primary Care Provider Active Start: November 05, 2024 End: November 05, 2024 Dr. Rose Mahmood DO Attending Provider Activ e Start: November 05, 2024 End: November 05, 2024 Dr. Rose Mahmood DO Referring Provider Activ e Start: November 05, 2024 End: November 05, 2024 Team Status: Inactive Member Role Status Dates Kiya Greer , FACILITIES ADMINISTRATOR-C Primary Care Provider Active Start: December 01, 2024 End: December 01, 2024 Kiya Greer , FACILITIES ADMINISTRATOR-C Referring Provider Active Start: December 01, 2024 End: December 01, 2024 Dr. Dorothy Lee MD Attending Provider Active Start: December 01, 2024 End: December 01, 2024 Team Status: Active Member Role/Relationship Status Dates Kiya Greer , FACILITIES ADMINISTRATOR-C Primary Care Provider Active Team Status: Inactive Member Role/Relationship Status Dates Kiya Greer , FACILITIES ADMINISTRATOR-C Primary Care Provider Active Start: September 29, 2024 End: September 29, 2024 Kiya Greer FACILITIES ADMINISTRATOR-C Referring Provider Active Start: September 29, 2024 End: September 29, 2024 Dr. Dorothy Lee MD Attending Provider Active Start: September 29, 2024 End: September 29, 2024 Team Status: Inactive Member Role/Relationship Status Dates Kiya Greer FACILITIES ADMINISTRATOR-C Primary Care Provider Active Start: September 29, 2024 End: September 29, 2024 Dr. Dorothy Lee MD Attending Provider Active Start: September 29, 2024 End: September 29, 2024 Dr. Dorothy Lee MD Referring Provider Active Start: September 29, 2024 End: September 29, 2024 Team Status: Inactive Member Role/Relationship Status Dates Kiya Greer , FACILITIES ADMINISTRATOR-C Primary Care Provider Active Start: November 05, 2024 End: November 05, 2024 Kiya Greer FACILITIES ADMINISTRATOR-C Referring Provider Active Start: November 05, 2024 End: November 05, 2024 Dr. Rose Mahmood DO Attending Provider Activ e Start: November 05, 2024 End: November 05, 2024 Team Status: Inactive Member Role/Relationship Status Dates Kiya Greer , FACILITIES ADMINISTRATOR-C Primary Care Provider Active Start: November 05, 2024 End: November 05, 2024 Dr. Rose Mahmood DO Attending Provider Activ e Start: November 05, 2024 End: November 05, 2024 Dr. Rose Mahmood DO Referring Provider Activ e Start: November 05, 2024 End: November 05, 2024 Team Status: Inactive Member Role/Relationship Status Dates Kiya Greer FACILITIES ADMINISTRATOR-C Primary Care Provider Active Start: December 01, 2024 End: December 01, 2024 Kiya Greer FACILITIES ADMINISTRATOR-C Referring Provider Active Start: December 01, 2024 End: December 01, 2024 Dr. Dorothy Lee MD Attending Provider Active Start: December 01, 2024 End: December 01, 2024 Team Status: Inactive Member Role/Relationship Status Dates Kiya Greer FACILITIES ADMINISTRATOR-C Primary Care Provider Active Start: December 31, 2024 End: December 31, 2024 Kiya Greer FACILITIES ADMINISTRATOR-C Referring Provider Active Start: December 31, 2024 End: December 31, 2024 Dr. Rose Mahmood DO Attending Provider Activ e Start: December 31, 2024 End: December 31, 2024 Team Status: Inactive Member Role/Relationship Status Dates Kiya Greer FACILITIES ADMINISTRATOR-C Primary Care Provider Active Start: January 26, 2025 End: January 26, 2025 Kiya Greer FACILITIES ADMINISTRATOR-C Referring Provider Active Start: January 26, 2025 End: January 26, 2025 Dr. Dorothy Lee MD Attending Provider Active Start: January 26, 2025 End: January 26, 2025 Team Status: Active Member Role/Relationship Status Dates Kiya Greer FACILITIES ADMINISTRATOR-C Primary Care Provider Active Start: January 26, 2025 Ranjana Neil CNM Attending Provider Active S tart: January 26, 2025 Ranjana Niel CNM Referring Provider Active S tart: January 26, 2025 Team Status: Inactive Member Role/Relationship Status Dates Kiya Greer FACILITIES ADMINISTRATOR-C Primary Care Provider Active Start: November 05, 2024 End: November 05, 2024 Kiya Greer FACILITIES ADMINISTRATOR-C Referring Provider Active Start: November 05, 2024 End: November 05, 2024 Dr. Rose Mahmood DO Attending Provider Activ e Start: November 05, 2024 End: November 05, 2024 Team Status: Inactive Member Role/Relationship Status Dates Kiya Greer , FACILITIES ADMINISTRATOR-C Primary Care Provider Active Start: November 05, 2024 End: November 05, 2024 Dr. Rose Mahmood , Attending Provider Activ e Start: November 05, 2024 End: November 05, 2024 Dr. Rose Mahmood , Referring Provider Activ e Start: November 05, 2024 End: November 05, 2024 Team Status: Inactive Member Role/Relationship Status Dates Kiya Greer , FACILITIES ADMINISTRATOR-C Primary Care Provider Active Start: December 01, 2024 End: December 01, 2024 Kiya Greer FACILITIES ADMINISTRATOR-C Referring Provider Active Start: December 01, 2024 End: December 01, 2024 Dr. Dorothy Lee MD Attending Provider Active Start: December 01, 2024 End: December 01, 2024 Team Status: Inactive Member Role/Relationship Status Dates Kiya Greer , FACILITIES ADMINISTRATOR-C Primary Care Provider Active Start: December 31, 2024 End: December 31, 2024 Kiya Greer , FACILITIES ADMINISTRATOR-C Referring Provider Active Start: December 31, 2024 End: December 31, 2024 Dr. Rose Mahmood , Attending Provider Activ e Start: December 31, 2024 End: December 31, 2024 Team Status: Inactive Member Role/Relationship Status Dates Kiya Greer , FACILITIES ADMINISTRATOR-C Primary Care Provider Active Start: January 26, 2025 End: January 26, 2025 Kiya Greer FACILITIES ADMINISTRATOR-C Referring Provider Active Start: January 26, 2025 End: January 26, 2025 Dr. Dorothy Lee MD Attending Provider Active Start: January 26, 2025 End: January 26, 2025 Team Status: Inactive Member Role/Relationship Status Dates Kiya Greer FACILITIES ADMINISTRATOR-C Primary Care Provider Active Start: January 26, 2025 End: January 26, 2025 Ranjana Neil CNM Attending Provider Active S tart: January 26, 2025 End: January 26, 2025 Ranjana Neil CNM Referring Provider Active S tart: January 26, 2025 End: January 26, 2025 Team Status: Inactive Member Role/Relationship Status Dates Kiya Greer , FACILITIES ADMINISTRATOR-C Primary Care Provider Active Start: February 11, 2025 End: February 11, 2025 Kiya Greer FACILITIES ADMINISTRATOR-C Referring Provider Active Start: February 11, 2025 End: February 11, 2025 Dr. Rose Mahmood , Attending Provider Activ e Start: February 11, 2025 End: February 11, 2025 Team Status: Active Member Role/Relationship Status Dates Kiya Greer FACILITIES ADMINISTRATOR-C Primary care physician Active Team Status: Inactive Member Role/Relationship Status Dates Kiya Greer FACILITIES ADMINISTRATOR-C Primary care physician Active Start: November 05, 2024 End: November 05, 2024 Kiya Greer FACILITIES ADMINISTRATOR-C Referring Provider Active Start: November 05, 2024 End: November 05, 2024 Dr. Rose Mahmood , Attending physician Acti ve Start: November 05, 2024 End: November 05, 2024 Team Status: Inactive Member Role/Relationship Status Dates Kiya Greer FACILITIES ADMINISTRATOR-C Primary care physician Active Start: November 05, 2024 End: November 05, 2024 Dr. Rose Mahmood , Attending physician Acti ve Start: November 05, 2024 End: November 05, 2024 Dr. Rose Mahmood , Referring Provider Activ e Start: November 05, 2024 End: November 05, 2024 Team Status: Inactive Member Role/Relationship Status Dates Kiya Greer FACILITIES ADMINISTRATOR-C Primary care physician Active Start: December 01, 2024 End: December 01, 2024 Kiya Greer FACILITIES ADMINISTRATOR-C Referring Provider Active Start: December 01, 2024 End: December 01, 2024 Dr. Dorothy Lee MD Attending physician Active Start: December 01, 2024 End: December 01, 2024 Team Status: Inactive Member Role/Relationship Status Dates Kiya Greer FACILITIES ADMINISTRATOR-C Primary care physician Active Start: December 31, 2024 End: December 31, 2024 Kiya Greer FACILITIES ADMINISTRATOR-C Referring Provider Active Start: December 31, 2024 End: December 31, 2024 Dr. Rose Mahmood , Attending physician Acti ve Start: December 31, 2024 End: December 31, 2024 Team Status: Inactive Member Role/Relationship Status Dates Kiya Greer FACILITIES ADMINISTRATOR-C Primary care physician Active Start: January 26, 2025 End: January 26, 2025 Kiya Greer FACILITIES ADMINISTRATOR-C Referring Provider Active Start: January 26, 2025 End: January 26, 2025 Dr. Dorothy Lee MD Attending physician Active Start: January 26, 2025 End: January 26, 2025 Team Status: Inactive Member Role/Relationship Status Dates Kiya Greer FACILITIES ADMINISTRATOR-C Primary care physician Active Start: January 26, 2025 End: January 26, 2025 Ranjana Neil CNM Attending physician Active Start: January 26, 2025 End: January 26, 2025 Ranjana Neil CNM Referring Provider Active S tart: January 26, 2025 End: January 26, 2025 Team Status: Inactive Member Role/Relationship Status Dates Kiya Greer FACILITIES ADMINISTRATOR-C Primary care physician Active Start: February 11, 2025 End: February 11, 2025 Kiya Greer , FACILITIES ADMINISTRATOR-C Referring Provider Active Start: February 11, 2025 End: February 11, 2025 Dr. Rose Mahmood DO Attending physician Active Start: February End: February 11, 2025 Team Status: Inactive Member Role/Relationship Status Dates Kiya Greer FACILITIES ADMINISTRATOR-C Primary care physician Active Start: February 25, 2025 End: February 25, 2025 Kiya Greer FACILITIES ADMINISTRATOR-C Referring Provider Active Start: February 25, 2025 End: February 25, 2025 Dr. Dorothy Lee MD Attending physician Active Start: February 25, 2025 End: February 25, 2025 Team Status: Inactive Member Role/Relationship Status Dates Kiya Greer FACILITIES ADMINISTRATOR-C Primary care physician Active Start: December 01, 2024 End: December 01, 2024 Kiya Greer FACILITIES ADMINISTRATOR-C Referring Provider Active Start: December 01, 2024 End: December 01, 2024 Dr. Dorothy Lee MD Attending physician Active Start: December 01, 2024 End: December 01, 2024 Team Status: Inactive Member Role/Relationship Status Dates Kiya Greer FACILITIES ADMINISTRATOR-C Primary care physician Active Start: December 31, 2024 End: December 31, 2024 Kiya Greer FACILITIES ADMINISTRATOR-C Referring Provider Active Start: December 31, 2024 End: December 31, 2024 Dr. Rose Mahmood DO Attending physician Acti ve Start: December 31, 2024 End: December 31, 2024 Team Status: Inactive Member Role/Relationship Status Dates Kiya Greer FACILITIES ADMINISTRATOR-C Primary care physician Active Start: January 26, 2025 End: January 26, 2025 Kiya Greer FACILITIES ADMINISTRATOR-C Referring Provider Active Start: January 26, 2025 End: January 26, 2025 Dr. Dorothy Lee MD Attending physician Active Start: January 26, 2025 End: January 26, 2025 Team Status: Inactive Member Role/Relationship Status Dates Kiya Greer FACILITIES ADMINISTRATOR-C Primary care physician Active Start: January 26, 2025 End: January 26, 2025 Ranjana Neil CNM Attending physician Active Start: January 26, 2025 End: January 26, 2025 Ranjana Neil CNM Referring Provider Active S tart: January 26, 2025 End: January 26, 2025 Team Status: Inactive Member Role/Relationship Status Dates Kiya Greer FACILITIES ADMINISTRATOR-C Primary care physician Active Start: February 11, 2025 End: February 11, 2025 Kiya Greer FACILITIES ADMINISTRATOR-C Referring Provider Active Start: February 11, 2025 End: February 11, 2025 Dr. Rose Mahmood DO Attending physician Active Start: February End: February 11, 2025 Team Status: Inactive Member Role/Relationship Status Dates Kiya Greer FACILITIES ADMINISTRATOR-C Primary care physician Active Start: February 25, 2025 End: February 25, 2025 Kiya Greer FACILITIES ADMINISTRATOR-C Referring Provider Active Start: February 25, 2025 End: February 25, 2025 Dr. Dorothy Lee MD Attending physician Active Start: February 25, 2025 End: February 25, 2025 Team Status: Inactive Member Role/Relationship Status Dates Kiya Greer FACILITIES ADMINISTRATOR-C Primary care physician Active Start: March 09, 2025 End: March 09, 2025 Kiya Greer FACILITIES ADMINISTRATOR-C Referring Provider Active Start: March 09, 2025 End: March 09, 2025 Dr. Rose Mahmood DO Attending physician Active Start: February End: March 09, 2025 Team Status: Inactive Member Role/Relationship Status Dates Kiya Greer FACILITIES ADMINISTRATOR-C Primary care physician Active Start: December 31, 2024 End: December 31, 2024 Kiya Greer FACILITIES ADMINISTRATOR-C Referring Provider Active Start: December 31, 2024 End: December 31, 2024 Dr. Rose Mahmood DO Attending physician Acti ve Start: December 31, 2024 End: December 31, 2024 Team Status: Inactive Member Role/Relationship Status Dates Kiya Greer FACILITIES ADMINISTRATOR-C Primary care physician Active Start: January 26, 2025 End: January 26, 2025 Kiya Greer FACILITIES ADMINISTRATOR-C Referring Provider Active Start: January 26, 2025 End: January 26, 2025 Dr. Dorothy Lee MD Attending physician Active Start: January 26, 2025 End: January 26, 2025 Team Status: Inactive Member Role/Relationship Status Dates Kiya Greer FACILITIES ADMINISTRATOR-C Primary care physician Active Start: January 26, 2025 End: January 26, 2025 Ranjana Neil CNM Attending physician Active Start: January 26, 2025 End: January 26, 2025 Ranjana Neil CNM Referring Provider Active S tart: January 26, 2025 End: January 26, 2025 Team Status: Inactive Member Role/Relationship Status Dates Kiya Greer FACILITIES ADMINISTRATOR-C Primary care physician Active Start: February 11, 2025 End: February 11, 2025 Kiya Greer FACILITIES ADMINISTRATOR-C Referring Provider Active Start: February 11, 2025 End: February 11, 2025 Dr. Rose Mahmood DO Attending physician Active Start: February End: February 11, 2025 Team Status: Inactive Member Role/Relationship Status Dates Kiya Greer FACILITIES ADMINISTRATOR-C Primary care physician Active Start: February 25, 2025 End: February 25, 2025 Kiya Greer FACILITIES ADMINISTRATOR-C Referring Provider Active Start: February 25, 2025 End: February 25, 2025 Dr. Dorothy Lee MD Attending physician Active Start: February 25, 2025 End: February 25, 2025 Team Status: Inactive Member Role/Relationship Status Dates Kiya Greer FACILITIES ADMINISTRATOR-C Primary care physician Active Start: March 09, 2025 End: March 09, 2025 Kiya Greer FACILITIES ADMINISTRATOR-C Referring Provider Active Start: March 09, 2025 End: March 09, 2025 Dr. oRse Mahmood DO Attending physician Active Start: February End: March 09, 2025 Team Status: Inactive Member Role/Relationship Status Dates Kiya Greer FACILITIES ADMINISTRATOR-C Primary care physician Active Start: March 23, 2025 End: March 23, 2025 Kiya Greer FACILITIES ADMINISTRATOR-C Referring Provider Active Start: March 23, 2025 End: March 23, 2025 Suzanne Salazar NP FACILITIES ADMINISTRATOR-C Attending physician Active Start: March 23, 2025 End: March 23, 2025 Team Status: Inactive Member Role/Relationship Status Dates Kiya Greer NP-C Primary care physician Active Start: April 06, 2025 End: April 06, 2025 Kiya Greer FACILITIES ADMINISTRATOR-C Referring Provider Active Start: April 06, 2025 End: April 06, 2025 Dr. Rose Mahmood DO Attending physician Acti ve Start: April 06, 2025 End: April 06, 2025 Team Status: Active Member Role/Relationship Status Dates Kiya Greer FACILITIES ADMINISTRATOR-C Primary care physician Active Start: April 06, [...] BE BASED ON THE PRIMARY CLINICAL RECORDS. [employer] provides no warranty or guarantee of the accuracy or completeness of information in this document.
[2025-04-27] VITALS (13 sets, daily range): BP systolic 116–137; BP diastolic 58–81; PULSE 71–97; RESP 16; TEMP 36.4–36.9; O2SAT 96–97
[2025-04-27] MEDS: Vancomycin HCl 2,000 MG in 0.9% Normal Saline (500mL Bag) 500 ML 250 MG IV (02:57)
--- NOTE | 2025-04-27 12:53 | PCM.PN.OB ---
Subjective Subjective Patient doing well without complaints. Tolerating PO. Ambulating and voiding without difficulty. feeding well. Denies chest pain, shortness of breath, calf pain/swelling, fevers, chills, lightheadedness. Objective Data Objective Data Vital Signs: Vital Signs Temp Pulse Resp BP Pulse Ox O2 Del Method 98.2 F 93 16 137/74 H 97 Room Air 04/27/25 08:00 04/27/25 12:16 04/27/25 08:00 04/27/25 12:16 04/27/25 03:02 04/27/25 03:02 Oxygen Delivery Method Room Air Weight: 211 lb Body Mass Index (BMI) 36.2 Intake & Output: Intake and Output for Last 24 Hours 04/25/25 04/26/25 04/27/25 23:59 23:59 23:59 Intake Total 4536.40 / 4536.40 540 / 540 Output Total 1400 / 1400 Balance 3136.40 / 3136.40 540 / 540 Lab / Micro Data 04/26/25 08:40 ROS Constitutional Constitutional: Reports systems reviewed and no addt'l complaints, except as documented Cardiovascular Cardiovascular: Reports systems reviewed and no addt'l complaints, except as documented Respiratory/Chest Respiratory/Chest: Reports systems reviewed and no addt'l complaints, except as documented Gastrointestinal Gastrointestinal: Reports systems reviewed and no addt'l complaints, except as documented Physical Exam Const alert, oriented x3 and no apparent distress HEENT Head and Scalp: atraumatic Resp normal respiratory effort GI soft to palpation and non-tender Bimanual Exam - Vag & Uterus: uterus non-tender Uterus Palpation: uterus fundus firm (below Umbilicus) Assessment & Plan (1) Vacuum-assisted vaginal delivery: COMMENT: maxi vavd OP 39 girl shaheen shoulder dystocia atony PLAN: Plan s/p PPD # 1 1. routine post delivery care 2. breast feeding- support given 3. rh positive 4. rubella immune
[2025-04-28 02:00] VITALS: BP 132/79; PULSE 75; RESP 18; TEMP 36.8; O2SAT 96
[2025-04-28 03:14] VITALS: BP 132/79; PULSE 73
[2025-04-28 08:20] VITALS: BP 130/76; PULSE 77; RESP 18; TEMP 36.5; O2SAT 96
--- NOTE | 2025-04-28 11:13 | PCM.PN.OB ---
Subjective Subjective Patient doing well without complaints. Tolerating PO. Ambulating and voiding without difficulty. feeding well. Denies chest pain, shortness of breath, calf pain/swelling, fevers, chills, lightheadedness. Objective Data Objective Data Vital Signs: Vital Signs Temp Pulse Resp BP Pulse Ox O2 Del Method 97.7 F L 77 18 130/76 H 96 Room Air 04/28/25 08:20 04/28/25 08:20 04/28/25 08:20 04/28/25 08:20 04/28/25 08:20 04/28/25 08:20 Oxygen Delivery Method Room Air Weight: 211 lb Body Mass Index (BMI) 36.2 Intake & Output: Intake and Output for Last 24 Hours 04/26/25 04/27/25 04/28/25 23:59 23:59 23:59 Intake Total 4536.40 / 4536.40 540 / 540 Output Total 1400 / 1400 Balance 3136.40 / 3136.40 540 / 540 Lab / Micro Data 04/26/25 08:40 ROS Constitutional Constitutional: Reports systems reviewed and no addt'l complaints, except as documented Cardiovascular Cardiovascular: Reports systems reviewed and no addt'l complaints, except as documented Respiratory/Chest Respiratory/Chest: Reports systems reviewed and no addt'l complaints, except as documented Gastrointestinal Gastrointestinal: Reports systems reviewed and no addt'l complaints, except as documented Physical Exam Const alert, oriented x3 and no apparent distress HEENT Head and Scalp: atraumatic Resp normal respiratory effort GI soft to palpation and non-tender Bimanual Exam - Vag & Uterus: uterus non-tender Uterus Palpation: uterus fundus firm (below Umbilicus) Assessment & Plan (1) Vacuum-assisted vaginal delivery: COMMENT: sm vavd OP 39 girl shaheen shoulder dystocia atony PLAN: Plan s/p PPD # 2 1. routine post delivery care 2. breast feeding- support given 3. rh positive 4. rubella immune
--- NOTE | 2025-04-28 11:16 | CASEMGMT ---
Social Work Assessment Labor and Delivery Unit Patient Address: [place] [address] Phone number:[phone] Date of Referral: 04/26/25 Time of Referral:? [id number] Referred By: Dr. Lee Date of Intervention: ?04/28/25? Time of Intervention:? 1030 Reason for Referral:?substance abuse, heroin- Sw completed chart review and acknowledges social work consult. Sw presented to bedside and introduced self to mother of baby, SARAH- Nya and father of baby, TONY- Itz. Also present was the couple's 3 year old daughter- Mey. Sw explained reason for sw involvement and completed psychosocial assessment. FOB stayed present for majority of conversation until sw asked him to step out of room momentarily so MOB could complete Broad Top Depression Scale, which he did so respectfully and willingly with ciroe daughter. History obtained from: medical records, MOB and FOB Household composition: Currently residing in the home is SARAH, TONY, their three year old daughter, Mey and baby when ready for discharge. Parents deny any problems or concerns with housing, stating that it is safe and secure. Patient's parent/guardian status:? ?Parents report that they met each other in high school and started dating in 2011, and got in 2020. No concerns reported of domestic violence or intimate partner violence. baby is the second child for parents together. Medical History: ?SARAH is 29 year old female who is 2, para 1- now 2 following labor and delivery of . SARAH received routine care with [facility] during her . SARAH presented to hospital and delivered baby via vaginal delivery on 04/26/25 at 39 weeks gestation. Baby girl, named Alicia, was born weighing 9lbs 4oz and had apgars of 8 and 9 at one and five minutes of life,respectfully. SARAH is breast feeding and states that it is going well. Baby will be followed by Dr. Tatum for pediatric care. Educational Status:? Both parents graduated from high school, MOB obtained her Master's degree and TONY obtained his Bachelor's degree. Parents deny any problems with reading, learning or comprehension. Financial Status: Both parents are gainfully employed outside of the home. TONY works from home doing manufacturing work and MOB is a psychiatric nurse practitioner. Infant Supplies:??All necessary baby supplies obtained, including: car seat, safe sleep space, clothes, diapers and wipes. Childcare/Caregiver(s):? MOB states that she and TONY will be the primary caregivers to baby along with maternal grandmother, and a feed mill lab technician when both parents are working. Transportation:?? Both parents have their drivers license and reliable means of transportation, no barriers Programs/Agencies Involved: Parents are over income for linkage to community resources that provide financial support. ??? Children Services/Legal Issues:??No history of children services involvement, no issues or concerns warranting referral at this time. ? Behavioral Health Issues: ??Mental Health History:?TONY denies mental health diagnoses. MOB states that she has history of anxiety and did experience anxiety after the delivery of her first baby. MOB states that she had panic attacks after her first baby was born, and ultimately did seek help from her OBGYN and started taking Zoloft to help her manage her symptoms. ?? Substance Use History: MOB informed sw that TONY had history of heroin use. He has been sober since 2017. MOB denies substance use prior to and during . ?? Family History:?MOB denies family history of mental health history, but does report that she has a parent with substance use history. MOB states that it is her father and she is not close to him. Sw and MOB discussed importance of both parents utilizing healthy and safe coping skills opposed to seeking comfort from drugs or alcohol. Drug Screens: ?No drug screens observed while completing chart review. ? Family/Social Stressors:?MOB denied any issues, stressors or concerns. Support Systems: MOB reports that TONY, her mom, her sister and TONY's dad are her biggest supports at this time. Depression/Shaken Baby/Safe Sleeping:? Dominick discussed signs and symptoms of baby blues and mood and anxiety with MOB. MOB states that after her first daughter was born, she started to experience anxiety almost immediately. MOB states that her symptoms were a result of several things. First one being that her delivery was traumatic, and not at all what she had expected going into her first labor and delivery experience. She was also a first time mom, and she did not fully know what to expect as a first time mother. MOB states that her mother in law lives in [place], and she and her do not always get along with one another. Her mother in law decided to come up and stay with them for one month after her daughter was born. SARAH states that this felt very intrusive to her as she was navigating motherhood, , and all things with her mother in law living with them for a whole month. MOB states that eventually TONY explained to his mom that she had to leave their home for the rest of her trip because SARAH was having panic attacks. MOB states that eventually she recognized what was going on with her mental health and talked to her OBGYN about it and started Zoloft. MOB states that she has felt so much better after starting the medication. MOB states that this labor and delivery experience was more traumatic than the first, but so far she feels as though she is handling it much better than she did her first. SARAH completed an Broad Top Scale and her score was an 8. Sw and MOB discussed this and talked about healthy and safe coping skills that MOB could utilize on a regular basis. MOB states that she is happy to have a winter baby, and looking forward to the holiday months. Sw encouraged MOB to spend time outside and in the sunlight, and to utilize her supports including her OBGYN if she feels as though she is experiencing symptoms. MOB agreed. Sw educated MOB on shaken baby prevention and ABCs of safe sleep, MOB expressed understanding. ASSESSMENT:? MOB and baby admitted following labor and delivery of . MOB with mental health history of anxiety and did experience anxiety after her first baby was born, which led her to the prescription of zoloft to help her manage her symptoms. MOB states that she is not connected to any mental health community resources due to time and commitment that it takes. Sw encouraged MOB to think about this, and provided her with resources that are virtual to help alleviate the time it takes to go somewhere for appointments. MOB and FOB were both receptive to meet with sw and to complete assessment. MOB was sitting on hospital bed and holding baby in loving and attentive manner. FOGenevieve was sitting on couch and was playing/ attentive to their three year old daughter. Both parents were talkative and conversation flowed easily, naturally. MOB able to recognize that she was not able to recognize that she was struggling with her mental health when she had her first baby, and states that this time if she does struggle she is able to recognize the symptoms earlier on, and also hopes that she is more supported with the zoloft. FOB states that he would be able to recognize if MOB is struggling and knows how to help and support her. Parents have all necessary baby items and have natural supports in place. PLAN:? No other services requested or indicated. MOB and baby to be discharged when medically ready. Parents were provided literature regarding: signs and symptoms of baby blues and mood and anxiety disorders, Help Me Grow, shaken baby prevention, ABCs of safe sleep and a list of county resources that are available for them should any needs present themselves. Iza Crowell, PRODUCTION SUPERVISOR TRAINEE, WILDLIFE ECOLOGIST
[2025-04-29 09:49] VITALS: BP 95/65; PULSE 96
[2025-04-29 09:50] VITALS: PULSE 97; O2SAT 96
--- NOTE | 2025-05-03 10:16 | PCM.DC.SUM ---
Providers Date of Admission: 04/26/25 Primary Care Physician: Kiya Greer, TECHNICAL SUPPORT SPECIALIST-C Reason For Visit: VAGINAL DELIVERY Diagnosis Discharge Diagnosis (1) Vacuum-assisted vaginal delivery: Status: Acute Code(s): Z37.9 - Outcome of delivery, unspecified Plan s/p PPD # 2 1. routine post delivery care 2. breast feeding- support given 3. rh positive 4. rubella immune Medications at Discharge Home Medications multivitamin no.47-iron fum 27 mg-folate no.1 1 mg-dha 300 mg capsule (PNV-DHA) 1 cap PO DAILY Check with primary doctor 06/14/21 cholecalciferol (vitamin D3) 125 mcg (5,000 unit) capsule 125 mcg PO QDAY 04/28/24 magnesium gluconate 30 mg tablet 30 mg PO QDAY 04/28/24 sertraline 50 mg tablet (Zoloft) 50 mg PO DAILY #90 tabs 04/28/24 cetirizine 10 mg tablet (Zyrtec) 10 mg PO QDAY PRN 09/19/24 Hospital Course Operations None Procedures None Summary of Care Provided Hospital Course: patient presented IAL and proceeded to deliver VAVD with a shoulder dystocia. She a routine recovery post delivery and was stable for discharge to home on PPD 2 Weight / BMI Weight Weight: 211 lb Body Mass Index (BMI) 36.2 ABG / Lab / Microbiology Data Attestation: I reviewed the patient's lab results. 04/26/25 08:40 D/C Instructions May resume sexual activity in: 4-6 weeks Weight Bearing Status: Full weight bearing Call your doctor if your incision/area has: Continuous Slow Oozing, Sudden Increased Bleeding, Increased Pain/ Swelling, Increased Redness and Foul Smelling Discharge Call your doctor if you observe: Fever of 101 or Higher, Inability to urinate, Using more than 1 pad per hour, Shortness of breath, Chest pain and Uncontrolled pain DC O2, CPAP, BIPAP Needs Home O2 Discharge instructions: No Please Follow Up With: Dorothy Lee MD When: Call [phone] to make an appointment with your doctor in 6 weeks. If you had elevated blood pressure or 4th degree laceration, you will need to be seen in 2 weeks. Meaningful Use Info Meaningful Use Meaningful Use Diagnoses (Choose all that apply): None applicable Discharge Plan Admission Admit Date/Time: 04/26/25 08:24 Attending Provider: Dorothy Lee Primary Care Provider: Kiya Greer Discharge Orders/Prescriptions Prescriptions: No Action PNV-DHA 27 mg iron-1 mg -300 mg capsule 1 cap PO DAILY magnesium gluconate 30 mg tablet 30 mg PO QDAY cholecalciferol (vitamin D3) 125 mcg (5,000 unit) capsule 125 mcg PO QDAY sertraline [Zoloft] 50 mg tablet 50 mg PO DAILY Qty: 90 4RF cetirizine [Zyrtec] 10 mg tablet 10 mg PO QDAY PRN (Reason: ) Referrals / Follow Up: Kiya Greer, TECHNICAL SUPPORT SPECIALIST-C [Primary Care Provider, Internal Medicine] Disposition Disposition (needs filled in before D/C Order can be placed): Home, Self Care
== END 2025-04-28 12:05 | disposition home or self-care (01) | DRG 807 ==
LOC: WPOUT 08:30 → WP 09:32
PROVIDERS: Admitting Provider Obstetrics & Gynecology; PCP Nurse Practitioner Family; Visit Provider Obstetrics & Gynecology
DX: O66.0 Obstructed labor due to shoulder dystocia (principal); Z37.0 Single live birth; O99.344 Other mental disorders complicating childbirth; F32.A Depression, unspecified; F41.9 Anxiety disorder, unspecified; O62.2 Other uterine inertia; O75.81 Maternal exhaustion complicating labor and delivery; O76 Abnormality in fetal heart rate and rhythm complicating labor and delivery; Z3A.39 39 weeks gestation of pregnancy; Z79.899 Other long term (current) drug therapy; Z87.59 Personal history of other complications of pregnancy, childbirth and the puerperium; Z82.79 Family history of other congenital malformations, deformations and chromosomal abnormalities
CPT/HCPCS: 59025; 59050; 76815; 85025; 86780; 86850; 86900; 86901; 99221; A4216; G0378; J0675; J2405